=== PATIENT | male | born 1970 | race Hispanic/Latino ===

== ENCOUNTER 2016-12-28 20:16 | Emergency (ER) | payer OTHER ==
[2016-12-28 21:23] VITALS: BP 130/80; PULSE 84; RESP 14; TEMP 98; O2SAT 98
== END 2016-12-28 21:21 | disposition left against medical advice (07) ==
LOC: C.ER 20:16
DX: R10.31 Right lower quadrant pain (principal); Z02.9 Encounter for administrative examinations, unspecified

== ENCOUNTER 2016-12-29 16:45 | Emergency (ER) | payer OTHER ==
[2016-12-29 17:29] VITALS: BP 135/75; PULSE 84; RESP 20; TEMP 98.3; O2SAT 99
== END 2016-12-29 20:00 | disposition left against medical advice (07) ==
LOC: C.ER 16:45
DX: K40.90 Unilateral inguinal hernia, without obstruction or gangrene, not specified as recurrent (principal); Z02.9 Encounter for administrative examinations, unspecified

== ENCOUNTER 2017-07-23 13:22 | Emergency (ER) | payer OTHER | END 2017-07-23 13:52 | disposition left against medical advice (07) | LOC: C.ER 13:22 | DX: Z02.89 Encounter for other administrative examinations (principal); F19.10 Other psychoactive substance abuse, uncomplicated ==

== ENCOUNTER 2017-08-20 14:41 | Emergency (ER) | payer OTHER ==
[2017-08-20 16:18] LABS: RBC URINE 4295 /hpf (0-3); URINE BACTERIA OCC (<OCC); URINE BILIRUBIN NEGATIVE (NEGATIVE); URINE BLOOD 3+ (NEGATIVE); URINE COLOR Amber (YELLOW); URINE GLUCOSE (UA) NORMAL (Normal); URINE KETONE NEGATIVE (NEGATIVE); URINE LEUKOCYTE ESTERASE 2+ Leu/uL (Negative); URINE PROTEIN 2+ mg/dL (NEGATIVE); WBC URINE 124 /hpf (0-5)
[2017-08-20] MEDS ORDERED: Tmp-Smz 800 mg-160 mg DS Tab PO STA (16:22)
--- NOTE | 2017-08-20 16:28 | C.PDOC ---
History Of Present Illness 47 y/o male presents to emergency department with complaints of dysuria, hematuria, and bilateral flank pain. Patient reports he [place] [facility] [place] medications and abx, which he finished. Patient states he is still having pain; did not follow up with urology. Patient also reports he has been using heroin and requests detox. Denies fever, chills, nausea, vomiting, or other associated symptoms. Of note patient is accompanied by mother who states she is not sure if he took the antibiotic, he has been doing drugs and needs detox. Patient is visibly under the influence. Time Seen by Provider: 08/20/17 15:07 Chief Complaint (Nursing): Abdominal Pain History Per: Patient, Family (Mother) History/Exam Limitations: intoxication Onset/Duration Of Symptoms: Days Current Symptoms Are (Timing): Still Present Quality Of Discomfort: "Pain" Associated Symptoms: Urinary Symptoms. denies: Fever, Nausea, Vomiting, Diarrhea, Chest Pain Recent travel outside of the [place]: No Past Medical History Reviewed: Historical Data, Nursing Documentation, Vital Signs Vital Signs: Last Vital Signs Temp 98.0 F 08/20/17 16:54 Pulse 101 H 08/20/17 16:54 Resp 19 08/20/17 16:54 BP 127/70 08/20/17 16:54 Pulse Ox 97 08/20/17 17:12 - Medical History PMH: Asthma, Fractures (right arm), Hepatitis, Hiatal Hernia - [facility] Procedures COMBINED ALCOHOL AND DRUG DETOXIFICATION (09/04/14) Family History: States: Unknown Family Hx - Social History Hx Tobacco Use: Yes Hx Alcohol Use: Yes Hx Substance Use: Yes - Immunization History Hx Tetanus Toxoid Vaccination: No Hx Influenza Vaccination: No Hx Pneumococcal Vaccination: No Review Of Systems Except As Marked, All Systems Reviewed And Found Negative. Constitutional: Negative for: Fever, Chills Cardiovascular: Negative for: Chest Pain Respiratory: Negative for: Cough, Shortness of Breath Gastrointestinal: Positive for: Other (bilateral flank pain). Negative for: Nausea, Vomiting, Abdominal Pain Genitourinary: Positive for: Dysuria, Hematuria Skin: Negative for: Rash Neurological: Negative for: Headache, Dizziness Psych: Positive for: Other (substance abuse) Physical Exam - Physical Exam Appears: Non-toxic, No Acute Distress, Other (somnolent, euphoric, slow speech, mother at bedside) Skin: Warm, Dry, Other (track ayala to right antecubital fossa, no cellulitis) Head: Atraumatic, Normacephalic Eye(s): bilateral: Normal Inspection, EOMI, Other (pinpoint pupils) Nose: Normal Oral Mucosa: Moist Neck: Normal ROM Chest: Symmetrical Cardiovascular: Rhythm Regular, No Murmur Respiratory: No Rales, No Rhonchi, No Wheezing Gastrointestinal/Abdominal: Soft, No Tenderness, No Distention, No Guarding, No Rebound Back: Normal Inspection, No Paraspinal Tenderness Extremity: Normal ROM, Pedal Edema (trace), Capillary Refill (< 2 sec. ), Other (stasis dermatitis) Neurological/Psych: Dysarthria (from substance use), Other (Blunted, constricted mood and affect) Disoriented To: Time ED Course And Treatment O2 Sat by Pulse Oximetry: 97 (RA) Pulse Ox Interpretation: Normal Medical Decision Making Medical Decision Making: Plan: * UA, cultures [place] [facility] [place] [facility] [place] for Ureterolithiaisis. Instructed to follow up with Dr Wiliam Murcia and DR Marlon Joshua. And again on 08/03/17 for urinary pain and hematuria, diagnosed with UTI, discharged with Levaquin. Labs reviewed from both visits with no leukocytosis or other abnormality. UDS positive for opiates and cocaine. Progress Notes: UA shows nitrates. Will treat with Bactrim. UDS +opiate, cocaine and benzos. On reassessment, patient is resting comfortably, and is in no acute distress. Patient is still euphoric but alert and oriented, mother is at bedside and will accompany patient home. Spoke with [facility] there are no detox beds. Provide information for detox coordinator and contact info for prescreen. Patient instructed to follow up with clinic and urology and to continue taking medications as directed. Discharged home accompanied by mother who was at bedside. Disposition Counseled Patient/Family Regarding: Diagnosis, Need For Followup, Rx Given - Disposition Referrals: Wiliam Murcia MD [Medical Doctor] - Disposition: HOME/ ROUTINE Disposition Time: 16:55 Condition: STABLE Additional Instructions: Follow up with your primary medical doctor or clinic and urology in 2-5 days for further evaluation. Take medications as prescribed. Return to the emergency department at any time if symptoms persist or worsen. Prescriptions: Sulfamethoxazole/Trimethoprim [Bactrim DS 800 mg-160 mg] 1 tab PO BID #14 tab Instructions: Urinary Tract Infection in Men (DC) Forms: [employer] (Setswana) Print Language: YORUBA - POA Present On Arrival: None - Clinical Impression Clinical Impression: Polysubstance abuse, UTI (urinary tract infection), Hematuria - PA / BRANCH ASSOCIATE / Resident Statement MD/DO has reviewed & agrees with the documentation as recorded. - Scribe Statement The provider has reviewed the documentation as recorded by the Scribwalter Amaro All medical record entries made by the Cameron were at my direction and personally dictated by me. I have reviewed the chart and agree that the record accurately reflects my personal performance of the history, physical exam, medical decision making, and the department course for this patient. I have also personally directed, reviewed, and agree with the discharge instructions and disposition.
[2017-08-20] MEDS ORDERED: Tmp-Smz 800 mg-160 mg DS Tab ONE (16:49)
[2017-08-20 16:56] VITALS: BP 127/70; PULSE 101; RESP 19; TEMP 98
[2017-08-20 17:10] VITALS: O2SAT 97
== END 2017-08-20 16:57 | disposition home or self-care (01) ==
LOC: C.ER 14:41
DX: N39.0 Urinary tract infection, site not specified (principal); R31.9 Hematuria, unspecified; F19.10 Other psychoactive substance abuse, uncomplicated

== ENCOUNTER 2017-09-21 17:25 | Inpatient (IN) | payer OTHER ==
[2017-09-21 19:01] LABS: BASO % 1.3 % (0.0-2.0); EOS # 0.1 K/uL (0.0-0.7); EOS % 4.7 % (0.0-4.0); HEMATOCRIT 29.9 % (35.0-51.0); LYMPH # 0.8 K/uL (1.0-4.3); MEAN CORPUSCULAR HEMOGLOBIN 30.9 pg (27.0-31.0); MEAN CORPUSCULAR HGB CONC 33.1 g/dL (33.0-37.0); MEAN PLATELET VOLUME 10.2 fL (7.2-11.7); MONO # 0.3 K/uL (0.0-0.8); MONO % 9.9 % (0.0-10.0); RED CELL DISTRIBUTION WIDTH 17.1 % (11.5-14.5); WHITE BLOOD COUNT 3.2 K/uL (4.8-10.8)
[2017-09-21 19:04] LABS: MEAN CELL VOLUME 93.3 fL (80.0-94.0)
[2017-09-21 19:09] LABS: INR 1.8
[2017-09-21 19:14] LABS: ALKALINE PHOSPHATASE 109 U/L (38-126); ALT/SGPT 111 U/L (21-72); AST/SGOT 172 U/L (17-59); BILIRUBIN,TOTAL 2.2 mg/dL (0.2-1.3); BLOOD UREA NITROGEN 10 mg/dL (9-20); CALCIUM 7.3 mg/dl (8.6-10.4); CARBON DIOXIDE 29 mmol/L (22-30); CHLORIDE 108 mmol/L (98-107); GFR AFRICAN-AMERICAN > 60; GLUCOSE,RANDOM 114 mg/dL (75-110); POTASSIUM 3.7 mmol/L (3.6-5.2); SODIUM 139 mmol/L (132-148); TOTAL PROTEIN 6.5 g/dL (6.3-8.3)
[2017-09-21 19:16] LABS: ALB/GLOB RATIO 0.6 (1.0-2.1)
--- NOTE | 2017-09-21 19:28 | C.PDOC ---
History Of Present Illness Isaiah Jackson is a 47 year old male, heroin user, with a past medical history of kidney stones, who presents to the emergency department complaining of abdominal pain and flank pain onset x1 week. Patient is also complaining of retaining fluid. He has a stent in place by Dr. Winchester, and states he missed his appointment to have it removed. No further medical complaints. PMD: Dylan Deutsch Time Seen by Provider: 09/21/17 18:36 Chief Complaint (Nursing): Male Genitourinary Past Medical History Vital Signs: Last Vital Signs Temp 98.0 F 09/21/17 18:06 Pulse 108 H 09/21/17 18:06 Resp 20 09/21/17 18:06 BP 144/80 09/21/17 18:06 Pulse Ox 97 09/21/17 18:06 - Medical History PMH: Asthma, Fractures (right arm), Hepatitis, Hiatal Hernia Denies: Diabetes, HIV, HTN, Chronic Kidney Disease, Seizures, Sexually Transmitted Disease - [facility] Procedures COMBINED ALCOHOL AND DRUG DETOXIFICATION (09/04/14) Family History: States: Unknown Family Hx - Social History Hx Tobacco Use: Yes Hx Alcohol Use: Yes Hx Substance Use: Yes - Immunization History Hx Tetanus Toxoid Vaccination: No Hx Influenza Vaccination: No Hx Pneumococcal Vaccination: No ED Course And Treatment - Laboratory Results Result Diagrams: 09/21/17 18:58 09/21/17 18:58 O2 Sat by Pulse Oximetry: 97 Disposition - Disposition
--- NOTE | 2017-09-21 19:33 | C.PDOC ---
History Of Present Illness Isaiah Jackson is a 47 year old male, heroin user, with a past medical history of kidney stones, who presents to the emergency department complaining of diffused abdominal pain and flank pain onset x1 week. Patient is also complaining of retaining fluid. He has a stent in place by Dr. Winchester, and states he missed his appointment to have it removed. No further medical complaints. PMD: Dylan Deutsch Time Seen by Provider: 09/21/17 18:36 Chief Complaint (Nursing): Male Genitourinary History Per: Patient History/Exam Limitations: no limitations Onset/Duration Of Symptoms: Days (x1 week) Current Symptoms Are (Timing): Still Present Location Of Pain/Discomfort: Diffuse Radiation Of Pain To:: None Past Medical History Reviewed: Historical Data, Nursing Documentation, Vital Signs Vital Signs: Last Vital Signs Temp 98.0 F 09/21/17 18:06 Pulse 99 H 09/21/17 21:39 Resp 12 09/21/17 21:39 BP 108/76 09/21/17 21:39 Pulse Ox 97 09/21/17 22:29 - Medical History PMH: Asthma, Fractures (right arm), Hepatitis, Hiatal Hernia, Kidney Stones Denies: Diabetes, HIV, HTN, Chronic Kidney Disease, Seizures, Sexually Transmitted Disease Surgical History: Coronary Stent - [facility] Procedures COMBINED ALCOHOL AND DRUG DETOXIFICATION (09/04/14) Family History: States: Unknown Family Hx - Social History Hx Tobacco Use: Yes Hx Alcohol Use: Yes Hx Substance Use: Yes - Immunization History Hx Tetanus Toxoid Vaccination: No Hx Influenza Vaccination: No Hx Pneumococcal Vaccination: No Review Of Systems Except As Marked, All Systems Reviewed And Found Negative. Cardiovascular: Positive for: Edema Gastrointestinal: Positive for: Abdominal Pain, Other (flank pain) Physical Exam - Physical Exam Appears: No Acute Distress Skin: Normal Color, Warm, Dry Head: Atraumatic, Normacephalic Eye(s): bilateral: Normal Inspection, PERRL, EOMI Neck: Normal, Normal ROM, Supple Cardiovascular: Rhythm Regular Respiratory: Normal Breath Sounds, No Accessory Muscle Use Gastrointestinal/Abdominal: Other (hepatomegaly) Back: CVA Tenderness (left ) Extremity: Normal ROM, Pedal Edema (3+ bilateral) Neurological/Psych: Oriented x3, Normal Speech ED Course And Treatment - Laboratory Results Result Diagrams: 09/21/17 18:58 09/21/17 18:58 ECG: Interpreted By Me, Viewed By Me ECG Rhythm: Sinus Rhythm ECG Interpretation: Normal Interpretation Of ECG: normal intervals, normal axis, no ST/T wave abnormalities. Rate From EC O2 Sat by Pulse Oximetry: 97 (RA) Pulse Ox Interpretation: Normal - CT Scan/US CT abd/pel Other Rad Studies (CT/US): Read By Radiologist, Radiology Report Reviewed CT/US Interpretation: IMPRESSION: Splenomegaly with possible varices; mesenteric adenopathy; limited evaluation of. solid viscera and bowel; left ureteral stent with 13 x 6 mm proximal left ureteral stone adjacent to the. stent; mild left caliectasis with nonobstructing left lower pole renal stone Medical Decision Making Medical Decision Making: Initial impression: abdominal pain Initial Plan: --Abd & Pelvis w/o PO contrast [CT] --EKG --Chest one view [RAD] --Pepcid 20 mg IVP --Toradol 30 mg IVP --Urinalysis --reevaluation Disposition Discussed With : Radha Saenz Doctor Will See Patient In The: Hospital Counseled Patient/Family Regarding: Studies Performed, Diagnosis - Disposition Disposition Time: 22:28 Condition: FAIR - Clinical Impression Clinical Impression: Renal stone, UTI (urinary tract infection), Ureteral stent retained - Scribe Statement Josh Garcia Provider Attestation: All medical record entries made by the Scribe were at my direction and personally dictated by me. I have reviewed the chart and agree that the record accurately reflects my personal performance of the history, physical exam, medical decision making, and the department course for this patient. I have also personally directed, reviewed, and agree with the discharge instructions and disposition.
[2017-09-21 20:00] LABS: RBC URINE 4589 /hpf (0-3); URINE BILIRUBIN NEGATIVE (NEGATIVE); URINE BLOOD 3+ (NEGATIVE); URINE CALCIUM OXALATE CRYSTALS OCC /hpf (<OCC); URINE COLOR Amber (YELLOW); URINE GLUCOSE (UA) NORMAL (Normal); URINE KETONE NEGATIVE (NEGATIVE); URINE LEUKOCYTE ESTERASE 2+ Leu/uL (Negative); URINE PROTEIN 2+ mg/dL (NEGATIVE); WBC CLUMPS MANY /hpf; WBC URINE 515 /hpf (0-5)
[2017-09-21] MEDS ORDERED: cefTRIAXone IV 1 gm in Dextros 50 ML IVPB ONE (21:06)
--- NOTE | 2017-09-21 22:02 | CT ---
EXAM: CT Abdomen and Pelvis Without Intravenous Contrast EXAM DATE/TIME: 09/21/2017 6:52 PM CLINICAL HISTORY: 47 years old, male; Pain; Abdominal pain; Flank; Other: Bilateral flank pain; Prior surgery; Surgery date: 1-6 months; Surgery type: Ureteral stents TECHNIQUE: Axial computed tomography images of the abdomen and pelvis without intravenous contrast. All CT scans at this facility use one or more dose reduction techniques, viz.: automated exposure control; ma/kV adjustment per patient size (including targeted exams where dose is matched to indication; i.e. head); or iterative reconstruction technique. Coronal and sagittal reformatted images were created and reviewed. COMPARISON: There are no prior studies for comparison. FINDINGS: Lower thorax: Heart size is normal. There is fluid in the pericardial space on the right. There is minimal scarring at the lung bases. ABDOMEN: Liver: Liver is diffusely heterogeneous. There is prominence of unopacified venous structures. Low attenuation masses cannot be excluded. Gallbladder and bile ducts: Gallbladder is almost empty.Common duct is unremarkable. Pancreas: Pancreas is not optimally evaluated. Spleen: The spleen is enlarged, 15 x 11 x 20 cm. Adrenals: Adrenals are unremarkable. Kidneys and ureters: Right kidney and ureter are unremarkable. There is mild left caliectasis. There are left lower pole renal stones. There is a 13 x 6 oh mm proximal right ureteral stone adjacent to the stent. There is a left ureteral stent. Proximal loop is in the renal pelvis. Distal loop is in the bladder. Stomach and bowel: Stomach is partially distended. Rotation is normal. Small bowel is mildly distended with fluid and air. There is mild proximal small bowel wall thickening There is no obstruction. Ileocecal region is unremarkable. Appendix and terminal ileum are unremarkable. Colon is incompletely distended which limits evaluation. There is scattered diverticulosis Appendix: See stomach and bowel PELVIS: Bladder: unremarkable Reproductive: Seminal vesicles and prostate are unremarkable. ABDOMEN and PELVIS: Intraperitoneal space: There are multiple nodular opacities in the upper abdomen. There is no free air. Bones/joints: There are no acute osseous abnormalities. Soft tissues: There is a right inguinal hernia containing fluid. There is a small fat containing umbilical hernia. There is body wall edema. Vasculature: There are vascular calcifications. Lymph nodes: There are shoddy inguinal nodes bilaterally. There is mesenteric adenopathy IMPRESSION: Splenomegaly with possible varices; mesenteric adenopathy; limited evaluation of solid viscera and bowel; left ureteral stent with 13 x 6 mm proximal left ureteral stone adjacent to the stent; mild left caliectasis with nonobstructing left lower pole renal stone Additional findings as described above.
[2017-09-21] MEDS ORDERED: Sodium Chloride 0.9% 1,000 ML ONE (22:43)
[2017-09-21] MEDS: Sodium Chloride 0.45% 1,000 ML IV SCH (22:53)
--- NOTE | 2017-09-21 23:04 | CP.PCM.HP ---
History of Present Illness - History of Present Illness History of Present Illness: 47 year old male, heroin user, with a past medical history of kidney stones, who presents to the emergency department complaining of diffused abdominal pain and flank pain onset x1 week. Patient is also complaining of retaining fluid. He has a stent in place by Dr. Winchester, and states he missed his appointment to have it removed. No further medical complaints. Present on Admission - Present on Admission Any Indicators Present on Admission: No Past Patient History - Infectious Disease Hx of Infectious Diseases: None - Past Medical History & Family History Past Medical History?: Yes - Past Social History Smoking Status: Light Smoker < 10 Cigarettes Daily - CARDIAC Hx Hypertension: No - PULMONARY Hx Asthma: Yes - NEUROLOGICAL Hx Seizures: No - HEENT Hx HEENT Problems: No - RENAL Hx Chronic Kidney Disease: No Hx Kidney Stones: Yes - ENDOCRINE/METABOLIC Hx Endocrine Disorders: No - HEMATOLOGICAL/ONCOLOGICAL Hx Human Immunodeficiency Virus (HIV): No - INTEGUMENTARY Hx Dermatological Problems: No - MUSCULOSKELETAL/RHEUMATOLOGICAL Hx Fractures: Yes (right arm) - GASTROINTESTINAL Other/Comment: right groin hernia - GENITOURINARY/GYNECOLOGICAL Hx Sexually Transmitted Disorders: No - PSYCHIATRIC Hx Substance Use: Yes - SURGICAL HISTORY Hx Coronary Stent: Yes - ANESTHESIA Hx Anesthesia: No Meds Allergies/Adverse Reactions: Allergies Allergy/AdvReac Type Severity Reaction Status Date / Time No Known Allergies Allergy Verified 09/21/17 18:10 Results - Vital Signs Recent Vital Signs: Last Vital Signs Temp 98.0 F 09/21/17 18:06 Pulse 99 H 09/21/17 21:39 Resp 12 09/21/17 21:39 BP 108/76 09/21/17 21:39 Pulse Ox 97 09/21/17 22:38 - Labs Result Diagrams: 09/21/17 18:58 09/21/17 18:58 Labs: Laboratory Results - last 24 hr 09/21/17 09/21/17 09/21/17 18:58 18:58 18:58 WBC 3.2 L RBC 3.20 L Hgb 9.9 L D Hct 29.9 L MCV 93.3 D MCH 30.9 MCHC 33.1 RDW 17.1 H Plt Count 38 L MPV 10.2 Neut % (Auto) 60.1 Lymph % (Auto) 24.0 [place] % (Auto) 9.9 Eos % (Auto) 4.7 H Baso % (Auto) 1.3 Neut # 1.9 Lymph # 0.8 L [place] # 0.3 Eos # 0.1 Baso # 0.0 Differential Comment PT 20.2 H INR 1.8 APTT 44 H Sodium 139 Potassium 3.7 Chloride 108 H Carbon Dioxide 29 Anion Gap 7 L BUN 10 Creatinine 0.5 L Est GFR ( Amer) > 60 Est GFR (Non-Af Amer) > 60 Random Glucose 114 H Calcium 7.3 L Total Bilirubin 2.2 H AST 172 H ALT 111 H D Alkaline Phosphatase 109 Troponin I < 0.0120 NT-Pro-B Natriuret Pep 74.8 Total Protein 6.5 Albumin 2.4 L D Globulin 4.1 H Albumin/Globulin Ratio 0.6 L Lipase 144 Urine Color Urine Clarity Urine pH Ur Specific [place] Urine Protein Urine Glucose (UA) Urine Ketones Urine Blood Urine Nitrate Urine Bilirubin Urine Urobilinogen Ur Leukocyte Esterase Urine WBC (Auto) Urine RBC (Auto) Urine WBC Clumps (Auto) Calcium Oxalate Crystal 09/21/17 19:37 WBC RBC Hgb Hct MCV MCH MCHC RDW Plt Count MPV Neut % (Auto) Lymph % (Auto) [place] % (Auto) Eos % (Auto) Baso % (Auto) Neut # Lymph # [place] # Eos # Baso # Differential Comment PT INR APTT Sodium Potassium Chloride Carbon Dioxide Anion Gap BUN Creatinine Est GFR ( Amer) Est GFR (Non-Af Amer) Random Glucose Calcium Total Bilirubin AST ALT Alkaline Phosphatase Troponin I NT-Pro-B Natriuret Pep Total Protein Albumin Globulin Albumin/Globulin Ratio Lipase Urine Color [place]ryn Urine Clarity Hazy Urine pH 6.0 Ur Specific [place] 1.017 Urine Protein 2+ H Urine Glucose (UA) Normal Urine Ketones Negative Urine Blood 3+ H Urine Nitrate Negative Urine Bilirubin Negative Urine Urobilinogen 2.0 Ur Leukocyte Esterase 2+ H Urine WBC (Auto) 515 H Urine RBC (Auto) 4589 H Urine WBC Clumps (Auto) Many H Calcium Oxalate Crystal Occ H Assessment & Plan (1) Renal stone Status: Acute Comment: URO EVAL FOR STENT REMOVALE (2) UTI (urinary tract infection) Status: Acute Comment: IV AB (3) Ureteral stent retained Status: Acute (4) Abdominal pain Status: Acute
--- NOTE | 2017-09-22 07:01 | RAD ---
PROCEDURE: CHEST RADIOGRAPH, 1 VIEW HISTORY: chest pain COMPARISON: 08/21/2016 FINDINGS: LUNGS: Biapical pleural thickening with upper lobe granulomatous changes. Diffuse increased interstitial lung markings. Left hilar prominence. Nodular density projecting over the right lung apex may represent productive change at the end of the 1st rib. PLEURA: No pneumothorax or pleural fluid seen. CARDIOVASCULAR: Normal. OSSEOUS STRUCTURES: No significant abnormalities. VISUALIZED UPPER ABDOMEN: Normal. OTHER FINDINGS: None. IMPRESSION: Biapical pleural thickening with upper lobe granulomatous changes. Diffuse increased interstitial lung markings. Left hilar prominence. Nodular density projecting over the right lung apex may represent productive change at the end of the 1st rib.
[2017-09-22 07:32] LABS: BASO % 0.4 % (0.0-2.0); EOS # 0.1 K/uL (0.0-0.7); LYMPH # 0.6 K/uL (1.0-4.3); LYMPH % 30.5 % (20.0-40.0); MEAN CELL VOLUME 92.3 fL (80.0-94.0); MEAN CORPUSCULAR HGB CONC 34.7 g/dL (33.0-37.0); MEAN PLATELET VOLUME 11.4 fL (7.2-11.7); MONO # 0.3 K/uL (0.0-0.8); MONO % 13.7 % (0.0-10.0); NRBC % 0.4 % (0.0-2.0); RED CELL DISTRIBUTION WIDTH 17.2 % (11.5-14.5); WHITE BLOOD COUNT 2.1 K/uL (4.8-10.8)
[2017-09-22 08:03] LABS: ALB/GLOB RATIO 0.6 (1.0-2.1); ALKALINE PHOSPHATASE 94 U/L (38-126); ALT/SGPT 93 U/L (21-72); AST/SGOT 139 U/L (17-59); BILIRUBIN,TOTAL 1.7 mg/dL (0.2-1.3); BLOOD UREA NITROGEN 11 mg/dL (9-20); CALCIUM 7.4 mg/dl (8.6-10.4); CARBON DIOXIDE 29 mmol/L (22-30); CHLORIDE 110 mmol/L (98-107); GFR AFRICAN-AMERICAN > 60; GLUCOSE,RANDOM 105 mg/dL (75-110); POTASSIUM 3.4 mmol/L (3.6-5.2); SODIUM 141 mmol/L (132-148); TOTAL PROTEIN 5.2 g/dL (6.3-8.3)
[2017-09-22] MEDS: Sodium Chloride 0.45% 1,000 ML IV SCH (09:35)
--- NOTE | 2017-09-22 10:14 | PCM.PSYCH ---
Initial Psychiatric Evaluation - Initial Psychiatric Evaluation Type of Admission: Voluntary Legal Status: Capacity Chief Complaint (in patient's own words): "I'm feeling tired" History of Present Illness and Precipitating Events: Pt was seen, chart reviewed, case discussed with staff Pt is a 47 y/o male pt who lives with his and 2 daughters. 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 Pt is a poor historian and is not attentive or cooperative during the interview. He presented to the ED with the chief complaint of diffuse abdominal pain. Pt has a history of opiate use. Pt reports that he uses 5 bags of heroin a day and his last use was yesterday. Pt had a 10 month period of sobriety before relapsing 6 years ago. Pt reports that he uses 2 -3 64 ounce cans of beer a day for an unspecified amount of time. Pt reports smoking $20 worth of crack cocaine for an unspecified amount of time. Pt smokes 1-3 cigarettes a day. Pt is experiencing withdrawal symptoms and appears extremely lethargic. He is superficially cooperative during the interview. However he denies any AVH or any psychotic symptoms. He also denies any SI/HI. PMHX: Asthma, Hepatits, Hiatal Hernia, Kidney Stones, Coronary Stent Current Medications: Active Medications Generic Name Dose Route Start Last Admin Trade Name Violetta PRN Reason Stop Dose Admin Ciprofloxacin 400 mg in 200 mls @ 133 mls/hr 09/22/17 00:00 09/22/17 00:00 Cipro 400mg/200ml Dsw IVPB 133 mls/hr Q12H ROBYN Administration Multivitamins/Vitamin C 10 ml/ 1,011.2 mls @ 100 mls/hr 09/22/17 11:00 Thiamine HCl 100 mg/ Folic IV 09/22/17 21:06 Acid 1 mg/ Sodium Chloride .[id number] ONE Pneumococcal Polyvalent Vaccine 0.5 ml 09/24/17 10:00 Pneumovax 23 Vaccine IM 09/24/17 10:01 .ONCE ONE Tamsulosin HCl 0.4 mg 09/22/17 10:00 Flomax PO DAILY ROBYN Past Psychiatric History - Past Psychiatric History Previous Treatment History: None Pertinent Medical Hx (Current Medical&Sleep Prob, Allergies): Allergies Allergy/AdvReac Type Severity Reaction Status Date / Time No Known Allergies Allergy Verified 09/21/17 18:10 Cephalexin [cephalexin] 500 mg PO TID 09/21/17 Tamsulosin [Flomax] 0.4 mg PO DAILY 09/21/17 Review of Systems - Review of Systems All systems: reviewed and no additional remarkable complaints except - Psychiatric Psychiatric: Abnormal Sleep Pattern, Anxiety, Difficulty Concentrating Mental Status Examination - Personal Presentation Personal Presentation: Looks stated age - Affect Affect: Constricted - Motor Activity Motor Activity: Psychomotor Agitation - Reliability in Providing Information Reliability in Providing Information: Fair - Speech Speech: Organized - Mood Mood: Anxious - Formal Thought Process Formal Thought Process: No Impairment - Obsessions/Compulsions Obsessions: No Compulsions: No - Cognitive Functions Orientation: Person, Place, Situation, Time Sensorium: Alert, Lethargic Attention/Concentration: Attentive Abstract Thinking: [place] Estimate of Intelligence: Below average Judgement: Imparied, as evidence by: Poor judgement, Imparied, as evidence by: Lack of insight into illness - Risk Risk: Seizure, Withdrawal, Diminished functioning DSM 5 DX - DSM 5 DSM 5 Diagnosis: Opioid use disorder severe Opioid withdrawal Cocaine use severe - Recommended/Plan of Treatment Treatment Recommendations and Plan of Treatment: CBT Psychoeducation Supportive therapy, individual therapy Clonidine when necessary Methadone taper trazodoen - Smoking Cessation Smoking Cessation Initiated: No
[2017-09-22] MEDS ORDERED: Multivitamin (MVI) 10 ML, Thiamine 100 MG, Folic Acid 1 MG in Sodium Chloride 0.9% 1,00... IV ONE (11:00)
[2017-09-22] MEDS ORDERED: Folic Acid 1 MG, Thiamine 100 MG, Multivitamin (MVI) 10 ML in Dextrose 5% In Water 1,00... IV SCH (11:00)
[2017-09-22] MEDS: Ciprofloxacin 400mg/200ml D5W 400 MG/200 ML BAG IVPB SCH ×2 (12:58)
--- NOTE | 2017-09-22 13:39 | CP.PCM.PN ---
Subjective - Date & Time of Evaluation Date of Evaluation: 09/22/17 Time of Evaluation: 13:38 - Subjective Subjective: CHIEF COMPLAINTS TODAY : LOWER BACK PAIN DYSURIA ROS. HEENT : N. Resp : No cough, wheezing ,pleuritic CP ,or hemoptysis Cardio : No anginal CP, PND, orthopnea, palpitation GI : No abd.pain, n/v ,diarrhea or GI bleeding . ENTREPRENEURSHIP PROGRAM DIRECTOR : No headache, vertigo, focal deficit. Musculoskel : No joint swelling , Derm : No rash Psych : Normal affect. Ext : No swelling ,calf pain PE. Pt. is alert awake in no distress. V.S As noted in the chart Head ,ear nose,throat and eyes : Normal. Neck : Supple with normal carotids. Lungs: Clear air entry. Heart : S1 & S2 normal with S4. No murmur. Abd : Soft with normal bowel sounds. Neuro : Moves all ext. with no localized deficit. Ext : No edema with intact pulses.Non tender calves Derm : No rashes or decubitus ulcer. LABS/RADIOLOGY ASSESSMENT/PLAN : IV AB AWAITING EVAL Objective - Vital Signs/Intake and Output Vital Signs (last 24 hours): Temp Pulse Resp BP Pulse Ox 98.7 F 95 H 20 127/78 97 09/22/17 07:00 09/22/17 07:00 09/22/17 07:00 09/22/17 07:00 09/22/17 07:00 Intake and Output: 09/22/17 09/22/17 11:59 23:59 Intake Total 1160 Balance 1160 - Medications Medications: Current Medications Ciprofloxacin (Cipro 400mg/200ml Dsw) 400 mg in 200 mls @ 133 mls/hr IVPB Q12H [facility] Last Admin: 09/22/17 12:58 Dose: 133 mls/hr Multivitamins/Vitamin C 10 ml/Thiamine HCl 100 mg/ Folic Acid 1 mg/ Sodium Chloride 1,011.2 mls @ 100 mls/hr IV .Q10H7M ONE Stop: 09/22/17 21:06 Last Admin: 09/22/17 12:56 Dose: 100 mls/hr Pneumococcal Polyvalent Vaccine (Pneumovax 23 Vaccine) 0.5 ml IM .ONCE ONE Stop: 09/24/17 10:01 Tamsulosin HCl (Flomax) 0.4 mg PO DAILY [facility] Last Admin: 09/22/17 10:23 Dose: 0.4 mg - Labs Labs: 09/22/17 07:10 09/22/17 07:10 PT 20.2 SECONDS (9.7-12.2) H 09/21/17 18:58 INR 1.8 09/21/17 18:58 APTT 44 SECONDS (21-34) H 09/21/17 18:58 Assessment and Plan (1) Renal stone Status: Acute (2) UTI (urinary tract infection) Status: Acute (3) Ureteral stent retained Status: Acute (4) Abdominal pain Status: Acute
[2017-09-22] MEDS: Sodium Chloride 0.9% 1,000 ML IV SCH (23:06)
[2017-09-23] MEDS: Ciprofloxacin 400mg/200ml D5W 400 MG/200 ML BAG IVPB SCH ×2 (00:05→13:00)
[2017-09-23 07:47] LABS: BASO % 1.3 % (0.0-2.0); EOS # 0.1 K/uL (0.0-0.7); EOS % 5.8 % (0.0-4.0); HEMATOCRIT 30.7 % (35.0-51.0); LYMPH # 0.6 K/uL (1.0-4.3); LYMPH % 24.8 % (20.0-40.0); MEAN CELL VOLUME 93.3 fL (80.0-94.0); MEAN CORPUSCULAR HEMOGLOBIN 30.7 pg (27.0-31.0); MEAN CORPUSCULAR HGB CONC 32.9 g/dL (33.0-37.0); MEAN PLATELET VOLUME 11.5 fL (7.2-11.7); MONO # 0.2 K/uL (0.0-0.8); MONO % 9.7 % (0.0-10.0); NRBC % 0.3 % (0.0-2.0); RED CELL DISTRIBUTION WIDTH 17.8 % (11.5-14.5); WHITE BLOOD COUNT 2.4 K/uL (4.8-10.8)
[2017-09-23 07:59] LABS: BLOOD UREA NITROGEN 7 mg/dL (9-20); CALCIUM 7.4 mg/dl (8.6-10.4); CARBON DIOXIDE 25 mmol/L (22-30); CHLORIDE 114 mmol/L (98-107); GFR AFRICAN-AMERICAN > 60; GLUCOSE,RANDOM 94 mg/dL (75-110); POTASSIUM 3.9 mmol/L (3.6-5.2); SODIUM 142 mmol/L (132-148)
[2017-09-23] MEDS: Sodium Chloride 0.9% 1,000 ML IV SCH (08:04)
[2017-09-23] MEDS: Dextrose 5%/0.45% NS 1,000 ML IV SCH ×2 (08:47→18:15)
[2017-09-23] MEDS ORDERED: Multivitamin (MVI) 10 ML, Thiamine 100 MG, Folic Acid 1 MG in Sodium Chloride 0.9% 1,00... IV ONE (09:00)
[2017-09-23] MEDS: Aluminum Hydroxide/Magnesium Hydroxide Susp (30 mL) PO PRN (09:00)
--- NOTE | 2017-09-23 10:13 | PCM.URO ---
Urology Progress Note - Subjective Abdominal Pain: Yes - Objective Lab Studies: Reviewed (gu dx: substance abuse and urolithiasis gu recommendation / anesthesia requests: hematology to address platelets, and psych plans to address his chronic substance abuse. long term plans . if cleared medically and psychiatrically, gu plans for surgery 09/27 1 pm) Lab Results Last 24 Hours: Laboratory Results - last 24 hr 09/22/17 09/23/17 09/23/17 19:28 07:13 07:13 WBC 2.4 L RBC 3.29 L Hgb 10.1 L Hct 30.7 L MCV 93.3 MCH 30.7 MCHC 32.9 L RDW 17.8 H Plt Count 38 L MPV 11.5 Neut % (Auto) 58.4 Lymph % (Auto) 24.8 Norton % (Auto) 9.7 Eos % (Auto) 5.8 H Baso % (Auto) 1.3 Neut # 1.4 L Lymph # 0.6 L Norton # 0.2 Eos # 0.1 Baso # 0.0 Sodium 142 Potassium 3.9 Chloride 114 H Carbon Dioxide 25 Anion Gap 7 L BUN 7 L Creatinine 0.6 L Est GFR ( Amer) > 60 Est GFR (Non-Af Amer) > 60 Random Glucose 94 Calcium 7.4 L Urine Opiates Screen Positive H Urine Methadone Screen Negative Ur Barbiturates Screen Negative Ur Phencyclidine Scrn Negative Ur Amphetamines Screen Negative U Benzodiazepines Scrn Negative U Oth Cocaine Metabols Positive H U Cannabinoids Screen Negative Intake & Output: Intake & Output 09/22/17 09/23/17 09/23/17 18:59 06:59 18:59 Intake Total 1940 Output Total 1250 Balance 690 Intake: Intake, IV Amount 1440 Left Antecubital 1440 Oral 500 Output: Urine 1250 Urine, Voided 1250 Other: # Voids Urine, Voided 6 Vital Signs: Vital Signs - 24 hr 09/22/17 09/22/17 09/23/17 13:30 15:00 00:00 Temperature 97.4 F L 99.3 F Pulse Rate 95 H 81 109 H Respiratory 22 20 Rate Blood Pressure 127/78 120/80 115/72 O2 Sat by Pulse 97 96 99 Oximetry 09/23/17 07:56 Temperature 98.3 F Pulse Rate 98 H Respiratory 20 Rate Blood Pressure 136/83 O2 Sat by Pulse 98 Oximetry
--- NOTE | 2017-09-23 13:19 | CARD ---
APPROVED REPORT EKG Measurement Heart [id number] <Conclusion> Normal sinus rhythm Possible Left atrial enlargement Borderline ECG
--- NOTE | 2017-09-23 13:52 | CP.PCM.PN ---
Subjective - Date & Time of Evaluation Date of Evaluation: 09/23/17 Time of Evaluation: 13:51 - Subjective Subjective: CHIEF COMPLAINTS TODAY : LOWER BACK PAIN DYSURIA ROS. HEENT : N. Resp : No cough, wheezing ,pleuritic CP ,or hemoptysis Cardio : No anginal CP, PND, orthopnea, palpitation GI : No abd.pain, n/v ,diarrhea or GI bleeding . APPRAISAL TECHNICIAN : No headache, vertigo, focal deficit. Musculoskel : No joint swelling , Derm : No rash Psych : Normal affect. Ext : No swelling ,calf pain PE. Pt. is alert awake in no distress. V.S As noted in the chart Head ,ear nose,throat and eyes : Normal. Neck : Supple with normal carotids. Lungs: Clear air entry. Heart : S1 & S2 normal with S4. No murmur. Abd : Soft with normal bowel sounds. Neuro : Moves all ext. with no localized deficit. Ext : No edema with intact pulses.Non tender calves Derm : No rashes or decubitus ulcer. LABS/RADIOLOGY PANCYTOPENIA ASSESSMENT/PLAN : IV AB PLANNING SURGERY HEM EVAL Objective - Vital Signs/Intake and Output Vital Signs (last 24 hours): Temp Pulse Resp BP Pulse Ox 98.3 F 98 H 20 136/83 98 09/23/17 07:56 09/23/17 07:56 09/23/17 07:56 09/23/17 07:56 09/23/17 07:56 Intake and Output: 09/23/17 09/23/17 11:59 23:59 Intake Total 800 1400 Output Total 1250 1500 Balance -450 -100 - Medications Medications: Current Medications Al Hydrox/Mg Hydrox/Simethicone (Maalox 30 Ml) 30 ml PO TID PRN PRN Reason: Indigestion / Heartburn Last Admin: 09/23/17 09:00 Dose: 30 ml Clonidine HCl (Catapres) 0.1 mg PO Q8 PRN PRN Reason: COWS Score More or Equal to 5 Folic Acid (Folic Acid) 1 mg PO DAILY [facility] Last Admin: 09/23/17 09:06 Dose: 1 mg Gabapentin (Neurontin) 100 mg PO TID [facility] Last Admin: 09/23/17 10:22 Dose: 100 mg Ciprofloxacin (Cipro 400mg/200ml Dsw) 400 mg in 200 mls @ 133 mls/hr IVPB Q12H [facility] Last Admin: 09/23/17 13:00 Dose: 133 mls/hr Multivitamins/Vitamin C 10 ml/Thiamine HCl 100 mg/ Folic Acid 1 mg/ Sodium Chloride 1,011.2 mls @ 100 mls/hr IV .Q10H7M ONE Stop: 09/23/17 19:06 Last Admin: 09/23/17 13:19 Dose: 100 mls/hr Dextrose/Sodium Chloride (Dextrose 5%/0.45% Ns 1000 Ml) 1,000 mls @ 100 mls/hr IV .Q10H [facility] Last Admin: 09/23/17 08:47 Dose: 100 mls/hr Loperamide HCl (Imodium) 2 mg PO Q8 PRN PRN Reason: Diarrhea Methadone HCl (Methadone) 20 mg PO DAILY [facility] PRN Reason: Taper Stop: 09/27/17 09:59 Last Admin: 09/23/17 10:12 Dose: 20 mg Ondansetron HCl (Zofran Tab) 4 mg PO Q8 PRN PRN Reason: Nausea/Vomiting Pneumococcal Polyvalent Vaccine (Pneumovax 23 Vaccine) 0.5 ml IM .ONCE ONE Stop: 09/24/17 10:01 Tamsulosin HCl (Flomax) 0.4 mg PO DAILY [facility] Last Admin: 09/23/17 09:00 Dose: 0.4 mg Thiamine HCl (Vitamin B1 Tab) 100 mg PO DAILY [facility] Last Admin: 09/23/17 09:06 Dose: 100 mg - Labs Labs: 09/23/17 07:13 09/23/17 07:13 PT 20.2 SECONDS (9.7-12.2) H 09/21/17 18:58 INR 1.8 09/21/17 18:58 APTT 44 SECONDS (21-34) H 09/21/17 18:58 Assessment and Plan (1) Renal stone Status: Acute (2) UTI (urinary tract infection) Status: Acute (3) Ureteral stent retained Status: Acute (4) Abdominal pain Status: Acute
--- NOTE | 2017-09-23 19:55 | CP.PCM.CON ---
History of Present Illness - History of Present Illness History of Present Illness: 47 year old male with a history of polysubstance abuse, kidney stones, ?liver cirrhosis, admitted with abdominal/flank pain, for urologic surgery, found to be pancytopenic and coagulopathic. The patient notes to a ureteral stent being placed for kidney stones in the past. He was supposed to have this removed at some point but did not follow up. He notes to flank pain and abdominal discomfort. He feels a lot of his symptoms may be related to heroine withdrawal. The patient was told in the past he had low blood, as well as liver disease and liver infection. He has not had blood transfusions in the past. Past medical history: polysubstance abuse, kidney stones, ?liver disease Past surgical history: Denies Family history: Denies hematologic and oncologic problems Social history: Smokes 2-3 cigarettes daily, drinks 3-4 beers daily, uses heroine Allergies: NKA Review of systems: All remaining review of systems including HEENT, cardiovascular, respiratory, gastrointestinal, genitourinary, musculoskeletal, dermatologic, neurologic, and psychiatric are negative unless mentioned in the HPI. Past Patient History - Infectious Disease Hx of Infectious Diseases: None - Past Medical History & Family History Past Medical History?: Yes - Past Social History Smoking Status: Light Smoker < 10 Cigarettes Daily - CARDIAC Hx Hypertension: No - PULMONARY Hx Asthma: Yes - NEUROLOGICAL Hx Seizures: No - HEENT Hx HEENT Problems: No - RENAL Hx Chronic Kidney Disease: No Hx Kidney Stones: Yes - ENDOCRINE/METABOLIC Hx Endocrine Disorders: No - HEMATOLOGICAL/ONCOLOGICAL Hx Hepatitis C: Yes Hx Human Immunodeficiency Virus (HIV): No - INTEGUMENTARY Hx Dermatological Problems: No - MUSCULOSKELETAL/RHEUMATOLOGICAL Hx Arthritis: Yes (back) - GASTROINTESTINAL Other/Comment: right groin hernia - GENITOURINARY/GYNECOLOGICAL Hx Sexually Transmitted Disorders: No - PSYCHIATRIC Hx Substance Use: Yes (Heroin/ Cocaine) - SURGICAL HISTORY Hx Surgeries: Yes Hx Coronary Stent: No Other/Comment: left urethral stent - ANESTHESIA Hx Anesthesia: Yes Hx Anesthesia Reactions: No Hx Malignant Hyperthermia: No Has any member of the family had a problem w/ anesthesia?: No Meds Allergies/Adverse Reactions: Allergies Allergy/AdvReac Type Severity Reaction Status Date / Time No Known Allergies Allergy Verified 09/21/17 18:10 - Medications Medications: Current Medications Al Hydrox/Mg Hydrox/Simethicone (Maalox 30 Ml) 30 ml PO TID PRN PRN Reason: Indigestion / Heartburn Last Admin: 09/23/17 09:00 Dose: 30 ml Clonidine HCl (Catapres) 0.1 mg PO Q8 PRN PRN Reason: COWS Score More or Equal to 5 Folic Acid (Folic Acid) 1 mg PO DAILY [facility] Last Admin: 09/23/17 09:06 Dose: 1 mg Gabapentin (Neurontin) 100 mg PO TID [facility] Last Admin: 09/23/17 10:22 Dose: 100 mg Ciprofloxacin (Cipro 400mg/200ml Dsw) 400 mg in 200 mls @ 133 mls/hr IVPB Q12H [facility] Last Admin: 09/23/17 13:00 Dose: 133 mls/hr Dextrose/Sodium Chloride (Dextrose 5%/0.45% Ns 1000 Ml) 1,000 mls @ 100 mls/hr IV .Q10H [facility] Last Admin: 09/23/17 08:47 Dose: 100 mls/hr Loperamide HCl (Imodium) 2 mg PO Q8 PRN PRN Reason: Diarrhea Lorazepam (Ativan) 0.5 mg IVP Q6H PRN PRN Reason: Anxiety Last Admin: 09/23/17 15:38 Dose: 0.5 mg Methadone HCl (Methadone) 20 mg PO DAILY [facility] PRN Reason: Taper Stop: 09/27/17 09:59 Last Admin: 09/23/17 10:12 Dose: 20 mg Ondansetron HCl (Zofran Tab) 4 mg PO Q8 PRN PRN Reason: Nausea/Vomiting Pneumococcal Polyvalent Vaccine (Pneumovax 23 Vaccine) 0.5 ml IM .ONCE ONE Stop: 09/24/17 10:01 Tamsulosin HCl (Flomax) 0.4 mg PO DAILY [facility] Last Admin: 09/23/17 09:00 Dose: 0.4 mg Thiamine HCl (Vitamin B1 Tab) 100 mg PO DAILY [facility] Last Admin: 09/23/17 09:06 Dose: 100 mg Physical Exam - Head Exam Head Exam: ATRAUMATIC - Eye Exam Eye Exam: Normal appearance - ENT Exam ENT Exam: Mucous Membranes Dry - Respiratory Exam Respiratory Exam: NORMAL BREATHING PATTERN - Cardiovascular Exam Cardiovascular Exam: +S1, +S2 - GI/Abdominal Exam GI & Abdominal Exam: Normal Bowel Sounds - Extremities Exam Extremities exam: Positive for: normal inspection - Neurological Exam Neurological exam: Oriented x3 - Psychiatric Exam Psychiatric exam: Agitated - Skin Skin Exam: Warm Results - Vital Signs Recent Vital Signs: Last Vital Signs Temp 98.3 F 09/23/17 07:56 Pulse 98 H 09/23/17 15:27 Resp 20 09/23/17 07:56 BP 136/83 09/23/17 15:27 Pulse Ox 98 09/23/17 15:27 - Labs Result Diagrams: 09/23/17 07:13 09/23/17 07:13 Labs: Laboratory Results - last 24 hr 09/22/17 09/23/17 09/23/17 19:28 07:13 07:13 WBC 2.4 L RBC 3.29 L Hgb 10.1 L Hct 30.7 L MCV 93.3 MCH 30.7 MCHC 32.9 L RDW 17.8 H Plt Count 38 L MPV 11.5 Neut % (Auto) 58.4 Lymph % (Auto) 24.8 Nye % (Auto) 9.7 Eos % (Auto) 5.8 H Baso % (Auto) 1.3 Neut # 1.4 L Lymph # 0.6 L Nye # 0.2 Eos # 0.1 Baso # 0.0 Sodium 142 Potassium 3.9 Chloride 114 H Carbon Dioxide 25 Anion Gap 7 L BUN 7 L Creatinine 0.6 L Est GFR ( Amer) > 60 Est GFR (Non-Af Amer) > 60 Random Glucose 94 Calcium 7.4 L Urine Opiates Screen Positive H Urine Methadone Screen Negative Ur Barbiturates Screen Negative Ur Phencyclidine Scrn Negative Ur Amphetamines Screen Negative U Benzodiazepines Scrn Negative U Oth Cocaine Metabols Positive H U Cannabinoids Screen Negative Assessment & Plan (1) Pancytopenia Assessment and Plan: suspect liver disease related; heterogenous liver, splenomegaly and varices noted on CT scan will check ferritin, retic count, b12, folate to characterize the patients anemia will check HIV and hepatitis panel may have an element of bone marrow suppression from recent alcohol use goal plt >50,000 for urologic surgery; may require transfusion support Status: Acute (2) Coagulopathy Assessment and Plan: suspect liver disease will give a dose of vitamin k IV goal INR < 1.5 prior to surgery Thank you for this interesting consult. Status: Acute
[2017-09-23] MEDS ORDERED: Phytonadione 10 mg/ml Inj (Adult) IV STA (21:19)
[2017-09-24] MEDS: Ciprofloxacin 400mg/200ml D5W 400 MG/200 ML BAG IVPB SCH ×2 (00:03→12:07)
[2017-09-24] MEDS: Dextrose 5%/0.45% NS 1,000 ML IV SCH ×3 (04:15→20:16)
[2017-09-24 07:26] LABS: BASO % 0.3 % (0.0-2.0); EOS # 0.1 K/uL (0.0-0.7); EOS % 4.4 % (0.0-4.0); HEMATOCRIT 30.8 % (35.0-51.0); LYMPH # 0.7 K/uL (1.0-4.3); LYMPH % 21.7 % (20.0-40.0); MEAN CELL VOLUME 93.5 fL (80.0-94.0); MEAN CORPUSCULAR HEMOGLOBIN 31.2 pg (27.0-31.0); MEAN CORPUSCULAR HGB CONC 33.4 g/dL (33.0-37.0); MEAN PLATELET VOLUME 11.3 fL (7.2-11.7); MONO # 0.3 K/uL (0.0-0.8); MONO % 9.1 % (0.0-10.0); NRBC % 0.3 % (0.0-2.0); RED CELL DISTRIBUTION WIDTH 17.7 % (11.5-14.5); WHITE BLOOD COUNT 3.1 K/uL (4.8-10.8)
[2017-09-24 07:46] LABS: ALKALINE PHOSPHATASE 96 U/L (38-126); ALT/SGPT 91 U/L (21-72); AST/SGOT 135 U/L (17-59); BILIRUBIN,TOTAL 2.5 mg/dL (0.2-1.3); BLOOD UREA NITROGEN 8 mg/dL (9-20); CALCIUM 7.7 mg/dl (8.6-10.4); CARBON DIOXIDE 25 mmol/L (22-30); CHLORIDE 114 mmol/L (98-107); GFR AFRICAN-AMERICAN > 60; GLUCOSE,RANDOM 113 mg/dL (75-110); POTASSIUM 3.9 mmol/L (3.6-5.2); SODIUM 142 mmol/L (132-148); TOTAL PROTEIN 6.2 g/dL (6.3-8.3)
[2017-09-24 07:47] LABS: ALB/GLOB RATIO 0.6 (1.0-2.1)
[2017-09-24 08:53] LABS: FOLATE > 20.0 ng/mL
[2017-09-24] MEDS ORDERED: Influenza Vaccine 60 mcg/0.5 mL SYR (4YR UP) IM ONE (10:00)
[2017-09-24] MEDS ORDERED: Pneumococcal 23-Valent Vaccine IM ONE (10:00)
--- NOTE | 2017-09-24 13:50 | CP.PCM.PN ---
Subjective - Date & Time of Evaluation Date of Evaluation: 09/24/17 Time of Evaluation: 13:48 - Subjective Subjective: CHIEF COMPLAINTS TODAY : LOWER BACK PAIN DYSURIA ROS. HEENT : N. Resp : No cough, wheezing ,pleuritic CP ,or hemoptysis Cardio : No anginal CP, PND, orthopnea, palpitation GI : No abd.pain, n/v ,diarrhea or GI bleeding . LEGUILLON DEBEADER : No headache, vertigo, focal deficit. Musculoskel : No joint swelling , Derm : No rash Psych : Normal affect. Ext : No swelling ,calf pain PE. Pt. is alert awake in no distress. V.S As noted in the chart Head ,ear nose,throat and eyes : Normal. Neck : Supple with normal carotids. Lungs: Clear air entry. Heart : S1 & S2 normal with S4. No murmur. Abd : Soft with normal bowel sounds. Neuro : Moves all ext. with no localized deficit. Ext : No edema with intact pulses.Non tender calves Derm : No rashes or decubitus ulcer. LABS/RADIOLOGY PANCYTOPENIA HEP C POS , OLD ASSESSMENT/PLAN : IV AB HEM EVAL APPRECIATED AWAITING CYSTO AND REMOVAL OF STENT/STONE Objective - Vital Signs/Intake and Output Vital Signs (last 24 hours): Temp Pulse Resp BP Pulse Ox 97.3 F L 97 H 20 142/88 98 09/24/17 08:36 09/24/17 08:36 09/24/17 08:36 09/24/17 08:36 09/24/17 08:36 Intake and Output: 09/24/17 09/24/17 11:59 23:59 Intake Total 1050 Output Total 850 Balance 200 - Medications Medications: Current Medications Al Hydrox/Mg Hydrox/Simethicone (Maalox 30 Ml) 30 ml PO TID PRN PRN Reason: Indigestion / Heartburn Last Admin: 09/23/17 09:00 Dose: 30 ml Clonidine HCl (Catapres) 0.1 mg PO Q8 PRN PRN Reason: COWS Score More or Equal to 5 Folic Acid (Folic Acid) 1 mg PO DAILY [facility] Last Admin: 09/24/17 09:47 Dose: 1 mg Gabapentin (Neurontin) 100 mg PO TID [facility] Last Admin: 09/24/17 13:32 Dose: 100 mg Ciprofloxacin (Cipro 400mg/200ml Dsw) 400 mg in 200 mls @ 133 mls/hr IVPB Q12H [facility] Last Admin: 09/24/17 12:07 Dose: 133 mls/hr Dextrose/Sodium Chloride (Dextrose 5%/0.45% Ns 1000 Ml) 1,000 mls @ 100 mls/hr IV .Q10H [facility] Last Admin: 09/24/17 13:25 Dose: Not Given Loperamide HCl (Imodium) 2 mg PO Q8 PRN PRN Reason: Diarrhea Lorazepam (Ativan) 0.5 mg IVP Q6H PRN PRN Reason: Anxiety Last Admin: 09/24/17 09:29 Dose: 0.5 mg Methadone HCl (Methadone) 15 mg PO DAILY [facility] PRN Reason: Taper Stop: 09/27/17 09:59 Last Admin: 09/24/17 09:46 Dose: 15 mg Ondansetron HCl (Zofran Tab) 4 mg PO Q8 PRN PRN Reason: Nausea/Vomiting Tamsulosin HCl (Flomax) 0.4 mg PO DAILY [facility] Last Admin: 09/24/17 09:46 Dose: 0.4 mg Thiamine HCl (Vitamin B1 Tab) 100 mg PO DAILY [facility] Last Admin: 09/24/17 09:46 Dose: 100 mg - Labs Labs: 09/24/17 07:05 09/24/17 07:05 PT 20.2 SECONDS (9.7-12.2) H 09/21/17 18:58 INR 1.8 09/21/17 18:58 APTT 44 SECONDS (21-34) H 09/21/17 18:58 Assessment and Plan (1) Renal stone Status: Acute (2) UTI (urinary tract infection) Status: Acute (3) Ureteral stent retained Status: Acute (4) Abdominal pain Status: Acute
--- NOTE | 2017-09-24 21:53 | CP.PCM.PN ---
Subjective - Date & Time of Evaluation Date of Evaluation: 09/24/17 Time of Evaluation: 17:00 - Subjective Subjective: Has body aches Hep C Ab positive Objective - Vital Signs/Intake and Output Vital Signs (last 24 hours): Temp Pulse Resp BP Pulse Ox 98.1 F 102 H 20 123/69 98 09/24/17 15:00 09/24/17 15:00 09/24/17 15:00 09/24/17 15:00 09/24/17 15:00 Intake and Output: 09/24/17 09/25/17 18:59 06:59 Intake Total 1100 Output Total 600 Balance 500 - Medications Medications: Current Medications Al Hydrox/Mg Hydrox/Simethicone (Maalox 30 Ml) 30 ml PO TID PRN PRN Reason: Indigestion / Heartburn Last Admin: 09/23/17 09:00 Dose: 30 ml Clonidine HCl (Catapres) 0.1 mg PO Q8 PRN PRN Reason: COWS Score More or Equal to 5 Folic Acid (Folic Acid) 1 mg PO DAILY [facility] Last Admin: 09/24/17 09:47 Dose: 1 mg Gabapentin (Neurontin) 100 mg PO TID [facility] Last Admin: 09/24/17 17:32 Dose: 100 mg Ciprofloxacin (Cipro 400mg/200ml Dsw) 400 mg in 200 mls @ 133 mls/hr IVPB Q12H [facility] Last Admin: 09/24/17 12:07 Dose: 133 mls/hr Dextrose/Sodium Chloride (Dextrose 5%/0.45% Ns 1000 Ml) 1,000 mls @ 100 mls/hr IV .Q10H [facility] Last Admin: 09/24/17 20:16 Dose: 100 mls/hr Loperamide HCl (Imodium) 2 mg PO Q8 PRN PRN Reason: Diarrhea Methadone HCl (Methadone) 15 mg PO DAILY [facility] PRN Reason: Taper Stop: 09/27/17 09:59 Last Admin: 09/24/17 09:46 Dose: 15 mg Ondansetron HCl (Zofran Tab) 4 mg PO Q8 PRN PRN Reason: Nausea/Vomiting Tamsulosin HCl (Flomax) 0.4 mg PO DAILY [facility] Last Admin: 09/24/17 09:46 Dose: 0.4 mg Thiamine HCl (Vitamin B1 Tab) 100 mg PO DAILY [facility] Last Admin: 09/24/17 09:46 Dose: 100 mg - Labs Labs: 09/24/17 07:05 09/24/17 07:05 PT 20.2 SECONDS (9.7-12.2) H 09/21/17 18:58 INR 1.8 09/21/17 18:58 APTT 44 SECONDS (21-34) H 09/21/17 18:58 - Head Exam Head Exam: ATRAUMATIC - Eye Exam Eye Exam: Normal appearance - ENT Exam ENT Exam: Mucous Membranes Dry - Respiratory Exam Respiratory Exam: NORMAL BREATHING PATTERN - Cardiovascular Exam Cardiovascular Exam: +S1, +S2 - GI/Abdominal Exam GI & Abdominal Exam: Normal Bowel Sounds Assessment and Plan (1) Pancytopenia Assessment & Plan: suspect liver disease with splenic sequetration Hep C Ab positive iron deficiency anemia likely from occult GI blood loss from varices; will start IV iron Status: Acute (2) Coagulopathy Assessment & Plan: liver disease s/p vit k Status: Acute
[2017-09-25] MEDS: Ciprofloxacin 400mg/200ml D5W 400 MG/200 ML BAG IVPB SCH ×2 (00:26→11:47)
[2017-09-25] MEDS: Aluminum Hydroxide/Magnesium Hydroxide Susp (30 mL) PO PRN (00:26)
[2017-09-25] MEDS: Dextrose 5%/0.45% NS 1,000 ML IV SCH ×4 (00:31→22:23)
[2017-09-25] MEDS ORDERED: DiphenhydrAMINE 50 mg/ml Inj IVP ONE (02:09)
[2017-09-25 07:17] LABS: BASO % 0.4 % (0.0-2.0); EOS # 0.2 K/uL (0.0-0.7); HEMATOCRIT 27.9 % (35.0-51.0); LYMPH # 0.7 K/uL (1.0-4.3); LYMPH % 25.3 % (20.0-40.0); MEAN CELL VOLUME 93.3 fL (80.0-94.0); MEAN CORPUSCULAR HEMOGLOBIN 31.1 pg (27.0-31.0); MEAN CORPUSCULAR HGB CONC 33.4 g/dL (33.0-37.0); MEAN PLATELET VOLUME 11.3 fL (7.2-11.7); MONO # 0.3 K/uL (0.0-0.8); MONO % 9.9 % (0.0-10.0); NRBC % 0.1 % (0.0-2.0); RED CELL DISTRIBUTION WIDTH 17.2 % (11.5-14.5); WHITE BLOOD COUNT 2.8 K/uL (4.8-10.8)
[2017-09-25 07:27] LABS: ALKALINE PHOSPHATASE 83 U/L (38-126); ALT/SGPT 91 U/L (21-72); AST/SGOT 121 U/L (17-59); BILIRUBIN,TOTAL 1.8 mg/dL (0.2-1.3); BLOOD UREA NITROGEN 9 mg/dL (9-20); CALCIUM 7.2 mg/dl (8.6-10.4); CARBON DIOXIDE 25 mmol/L (22-30); CHLORIDE 114 mmol/L (98-107); GFR AFRICAN-AMERICAN > 60; GLUCOSE,RANDOM 96 mg/dL (75-110); POTASSIUM 3.4 mmol/L (3.6-5.2); SODIUM 142 mmol/L (132-148); TOTAL PROTEIN 6.7 g/dL (6.3-8.3)
[2017-09-25 07:39] LABS: ALB/GLOB RATIO 0.4 (1.0-2.1)
[2017-09-25] MEDS ORDERED: Ferric Sodium Gluconat Complex 62.5 mg/5 ml Vial IVPB SCH (10:00)
[2017-09-25] MEDS: Ferric Sodium Gluconat Complex 125 MG in Sodium Chloride 0.9% 100 ML IVPB SCH (12:11)
--- NOTE | 2017-09-25 13:02 | CP.PCM.PN ---
Subjective - Date & Time of Evaluation Date of Evaluation: 09/25/17 Time of Evaluation: 13:02 - Subjective Subjective: CHIEF COMPLAINTS TODAY : LOWER BACK PAIN DYSURIA ROS. HEENT : N. Resp : No cough, wheezing ,pleuritic CP ,or hemoptysis Cardio : No anginal CP, PND, orthopnea, palpitation GI : No abd.pain, n/v ,diarrhea or GI bleeding . ORTHODONTIST ASSISTANT : No headache, vertigo, focal deficit. Musculoskel : No joint swelling , Derm : No rash Psych : Normal affect. Ext : No swelling ,calf pain PE. Pt. is alert awake in no distress. V.S As noted in the chart Head ,ear nose,throat and eyes : Normal. Neck : Supple with normal carotids. Lungs: Clear air entry. Heart : S1 & S2 normal with S4. No murmur. Abd : Soft with normal bowel sounds. Neuro : Moves all ext. with no localized deficit. Ext : No edema with intact pulses.Non tender calves Derm : No rashes or decubitus ulcer. LABS/RADIOLOGY PANCYTOPENIA HEP C POS , OLD ASSESSMENT/PLAN : IV AB HEM EVAL APPRECIATED AWAITING CYSTO AND REMOVAL OF STENT/STONE ON IV IRON Objective - Vital Signs/Intake and Output Vital Signs (last 24 hours): Temp Pulse Resp BP Pulse Ox 98.3 F 88 20 116/73 97 09/25/17 12:36 09/25/17 12:36 09/25/17 12:36 09/25/17 12:36 09/25/17 12:36 Intake and Output: 09/25/17 09/25/17 11:59 23:59 Intake Total 1210 Output Total 1100 Balance 110 - Medications Medications: Current Medications Al Hydrox/Mg Hydrox/Simethicone (Maalox 30 Ml) 30 ml PO TID PRN PRN Reason: Indigestion / Heartburn Last Admin: 09/25/17 00:26 Dose: 30 ml Clonidine HCl (Catapres) 0.1 mg PO Q8 PRN PRN Reason: COWS Score More or Equal to 5 Folic Acid (Folic Acid) 1 mg PO DAILY [facility] Last Admin: 09/25/17 09:33 Dose: 1 mg Gabapentin (Neurontin) 100 mg PO TID [facility] Last Admin: 09/25/17 09:40 Dose: 100 mg Ciprofloxacin (Cipro 400mg/200ml Dsw) 400 mg in 200 mls @ 133 mls/hr IVPB Q12H [facility] Last Admin: 09/25/17 11:47 Dose: 133 mls/hr Dextrose/Sodium Chloride (Dextrose 5%/0.45% Ns 1000 Ml) 1,000 mls @ 100 mls/hr IV .Q10H [facility] Last Admin: 09/25/17 11:45 Dose: 100 mls/hr Ferric Sodium Gluconate Complex 125 mg/ Sodium Chloride 110 mls @ 110 mls/hr IVPB DAILY [facility] Stop: 10/03/17 12:01 Last Admin: 09/25/17 12:11 Dose: 110 mls/hr Loperamide HCl (Imodium) 2 mg PO Q8 PRN PRN Reason: Diarrhea Methadone HCl (Methadone) 10 mg PO DAILY [facility] PRN Reason: Taper Stop: 09/27/17 09:59 Last Admin: 09/25/17 09:31 Dose: 10 mg Ondansetron HCl (Zofran Tab) 4 mg PO Q8 PRN PRN Reason: Nausea/Vomiting Tamsulosin HCl (Flomax) 0.4 mg PO DAILY [facility] Last Admin: 09/25/17 09:33 Dose: 0.4 mg Thiamine HCl (Vitamin B1 Tab) 100 mg PO DAILY [facility] Last Admin: 09/25/17 09:33 Dose: 100 mg - Labs Labs: 09/25/17 06:52 09/25/17 06:52 PT 20.2 SECONDS (9.7-12.2) H 09/21/17 18:58 INR 1.8 09/21/17 18:58 APTT 44 SECONDS (21-34) H 09/21/17 18:58 Assessment and Plan (1) Renal stone Status: Acute (2) UTI (urinary tract infection) Status: Acute (3) Ureteral stent retained Status: Acute (4) Abdominal pain Status: Acute
--- NOTE | 2017-09-25 21:00 | CP.PCM.PN ---
Subjective - Date & Time of Evaluation Date of Evaluation: 09/25/17 Time of Evaluation: 18:00 - Subjective Subjective: Feels weak Objective - Vital Signs/Intake and Output Vital Signs (last 24 hours): Temp Pulse Resp BP Pulse Ox 98.2 F 81 20 119/70 97 09/25/17 15:00 09/25/17 15:00 09/25/17 15:00 09/25/17 15:00 09/25/17 15:00 Intake and Output: 09/25/17 09/26/17 18:59 06:59 Intake Total 1500 Output Total 1200 Balance 300 - Medications Medications: Current Medications Al Hydrox/Mg Hydrox/Simethicone (Maalox 30 Ml) 30 ml PO TID PRN PRN Reason: Indigestion / Heartburn Last Admin: 09/25/17 00:26 Dose: 30 ml Clonidine HCl (Catapres) 0.1 mg PO Q8 PRN PRN Reason: COWS Score More or Equal to 5 Folic Acid (Folic Acid) 1 mg PO DAILY [facility] Last Admin: 09/25/17 09:33 Dose: 1 mg Gabapentin (Neurontin) 100 mg PO TID [facility] Last Admin: 09/25/17 18:53 Dose: 100 mg Ciprofloxacin (Cipro 400mg/200ml Dsw) 400 mg in 200 mls @ 133 mls/hr IVPB Q12H [facility] Last Admin: 09/25/17 11:47 Dose: 133 mls/hr Dextrose/Sodium Chloride (Dextrose 5%/0.45% Ns 1000 Ml) 1,000 mls @ 100 mls/hr IV .Q10H [facility] Last Admin: 09/25/17 11:45 Dose: 100 mls/hr Ferric Sodium Gluconate Complex 125 mg/ Sodium Chloride 110 mls @ 110 mls/hr IVPB DAILY [facility] Stop: 10/03/17 12:01 Last Admin: 09/25/17 12:11 Dose: 110 mls/hr Loperamide HCl (Imodium) 2 mg PO Q8 PRN PRN Reason: Diarrhea Methadone HCl (Methadone) 10 mg PO DAILY [facility] PRN Reason: Taper Stop: 09/27/17 09:59 Last Admin: 09/25/17 09:31 Dose: 10 mg Ondansetron HCl (Zofran Tab) 4 mg PO Q8 PRN PRN Reason: Nausea/Vomiting Tamsulosin HCl (Flomax) 0.4 mg PO DAILY [facility] Last Admin: 09/25/17 09:33 Dose: 0.4 mg Thiamine HCl (Vitamin B1 Tab) 100 mg PO DAILY [facility] Last Admin: 09/25/17 09:33 Dose: 100 mg - Labs Labs: 09/25/17 06:52 09/25/17 06:52 PT 20.2 SECONDS (9.7-12.2) H 09/21/17 18:58 INR 1.8 09/21/17 18:58 APTT 44 SECONDS (21-34) H 09/21/17 18:58 - Head Exam Head Exam: ATRAUMATIC - Eye Exam Eye Exam: Normal appearance - ENT Exam ENT Exam: Mucous Membranes Dry - Respiratory Exam Respiratory Exam: NORMAL BREATHING PATTERN - Cardiovascular Exam Cardiovascular Exam: +S1, +S2 - GI/Abdominal Exam GI & Abdominal Exam: Normal Bowel Sounds Assessment and Plan (1) Pancytopenia Assessment & Plan: suspect liver disease with splenic sequetration Hep C Ab positive iron deficiency anemia likely from occult GI blood loss from varices; on IV iron Status: Acute (2) Coagulopathy Assessment & Plan: liver disease s/p vit k Status: Acute
[2017-09-26] MEDS: Ciprofloxacin 400mg/200ml D5W 400 MG/200 ML BAG IVPB SCH ×2 (00:30→12:54)
[2017-09-26] MEDS: Dextrose 5%/0.45% NS 1,000 ML IV SCH (06:17)
[2017-09-26 07:30] LABS: BASO % 0.6 % (0.0-2.0); EOS # 0.2 K/uL (0.0-0.7); EOS % 7.8 % (0.0-4.0); HEMATOCRIT 28.3 % (35.0-51.0); LYMPH # 0.7 K/uL (1.0-4.3); LYMPH % 29.5 % (20.0-40.0); MEAN CELL VOLUME 93.5 fL (80.0-94.0); MEAN CORPUSCULAR HEMOGLOBIN 31.6 pg (27.0-31.0); MEAN CORPUSCULAR HGB CONC 33.8 g/dL (33.0-37.0); MEAN PLATELET VOLUME 11.5 fL (7.2-11.7); MONO # 0.2 K/uL (0.0-0.8); MONO % 10.4 % (0.0-10.0); NRBC % 0.3 % (0.0-2.0); RED CELL DISTRIBUTION WIDTH 17.3 % (11.5-14.5); WHITE BLOOD COUNT 2.4 K/uL (4.8-10.8)
[2017-09-26 08:05] LABS: ALB/GLOB RATIO 0.5 (1.0-2.1); ALKALINE PHOSPHATASE 107 U/L (38-126); ALT/SGPT 87 U/L (21-72); AST/SGOT 121 U/L (17-59); BILIRUBIN,TOTAL 1.8 mg/dL (0.2-1.3); BLOOD UREA NITROGEN 9 mg/dL (9-20); CALCIUM 7.3 mg/dl (8.6-10.4); CARBON DIOXIDE 24 mmol/L (22-30); CHLORIDE 113 mmol/L (98-107); GFR AFRICAN-AMERICAN > 60; GLUCOSE,RANDOM 101 mg/dL (75-110); POTASSIUM 3.7 mmol/L (3.6-5.2); SODIUM 139 mmol/L (132-148); TOTAL PROTEIN 5.6 g/dL (6.3-8.3)
[2017-09-26] MEDS: Ferric Sodium Gluconat Complex 125 MG in Sodium Chloride 0.9% 100 ML IVPB SCH (10:10)
[2017-09-26] MEDS ORDERED: Ferric Sodium Gluconat Complex 62.5 mg/5 ml Vial ONE (10:12)
--- NOTE | 2017-09-26 14:29 | CP.PCM.PN ---
Subjective - Date & Time of Evaluation Date of Evaluation: 09/26/17 Time of Evaluation: 14:29 - Subjective Subjective: CHIEF COMPLAINTS TODAY : LOWER BACK PAIN DYSURIA ROS. HEENT : N. Resp : No cough, wheezing ,pleuritic CP ,or hemoptysis Cardio : No anginal CP, PND, orthopnea, palpitation GI : No abd.pain, n/v ,diarrhea or GI bleeding . 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 Musculoskel : No joint swelling , Derm : No rash Psych : Normal affect. Ext : No swelling ,calf pain PE. Pt. is alert awake in no distress. V.S As noted in the chart Head ,ear nose,throat and eyes : Normal. Neck : Supple with normal carotids. Lungs: Clear air entry. Heart : S1 & S2 normal with S4. No murmur. Abd : Soft with normal bowel sounds. Neuro : Moves all ext. with no localized deficit. Ext : No edema with intact pulses.Non tender calves Derm : No rashes or decubitus ulcer. LABS/RADIOLOGY PANCYTOPENIA HEP C POS , OLD ASSESSMENT/PLAN : IV AB HEM EVAL APPRECIATED AWAITING CYSTO AND REMOVAL OF STENT/STONE ON IV IRON Objective - Vital Signs/Intake and Output Vital Signs (last 24 hours): Temp Pulse Resp BP Pulse Ox 98 F 90 20 112/76 95 09/26/17 09:26 09/26/17 09:26 09/26/17 09:26 09/26/17 09:26 09/26/17 09:26 Intake and Output: 09/26/17 09/26/17 11:59 23:59 Intake Total 3150 Output Total 950 Balance 2200 - Medications Medications: Current Medications Al Hydrox/Mg Hydrox/Simethicone (Maalox 30 Ml) 30 ml PO TID PRN PRN Reason: Indigestion / Heartburn Last Admin: 09/25/17 00:26 Dose: 30 ml Clonidine HCl (Catapres) 0.1 mg PO Q8 PRN PRN Reason: COWS Score More or Equal to 5 Folic Acid (Folic Acid) 1 mg PO DAILY [facility] Last Admin: 09/26/17 10:08 Dose: 1 mg Gabapentin (Neurontin) 100 mg PO TID [facility] Last Admin: 09/26/17 13:02 Dose: 100 mg Ciprofloxacin (Cipro 400mg/200ml Dsw) 400 mg in 200 mls @ 133 mls/hr IVPB Q12H [facility] Last Admin: 09/26/17 12:54 Dose: 133 mls/hr Ferric Sodium Gluconate Complex 125 mg/ Sodium Chloride 110 mls @ 110 mls/hr IVPB DAILY [facility] Stop: 10/03/17 12:01 Last Admin: 09/26/17 10:10 Dose: 110 mls/hr Loperamide HCl (Imodium) 2 mg PO Q8 PRN PRN Reason: Diarrhea Methadone HCl (Methadone) 5 mg PO DAILY [facility] PRN Reason: Taper Stop: 09/27/17 09:59 Last Admin: 09/26/17 10:06 Dose: 5 mg Ondansetron HCl (Zofran Tab) 4 mg PO Q8 PRN PRN Reason: Nausea/Vomiting Tamsulosin HCl (Flomax) 0.4 mg PO DAILY [facility] Last Admin: 09/26/17 10:09 Dose: 0.4 mg Thiamine HCl (Vitamin B1 Tab) 100 mg PO DAILY [facility] Last Admin: 09/26/17 10:08 Dose: 100 mg - Labs Labs: 09/26/17 07:16 09/26/17 07:16 PT 20.2 SECONDS (9.7-12.2) H 09/21/17 18:58 INR 1.8 09/21/17 18:58 APTT 44 SECONDS (21-34) H 09/21/17 18:58 Assessment and Plan (1) Renal stone Status: Acute (2) UTI (urinary tract infection) Status: Acute (3) Ureteral stent retained Status: Acute (4) Abdominal pain Status: Acute
[2017-09-27] MEDS: Ciprofloxacin 400mg/200ml D5W 400 MG/200 ML BAG IVPB SCH ×2 (00:13→11:04)
[2017-09-27 07:00] LABS: BASO % 0.3 % (0.0-2.0); EOS # 0.2 K/uL (0.0-0.7); EOS % 6.6 % (0.0-4.0); HEMATOCRIT 29.6 % (35.0-51.0); LYMPH # 0.8 K/uL (1.0-4.3); LYMPH % 30.6 % (20.0-40.0); MEAN CORPUSCULAR HEMOGLOBIN 31.4 pg (27.0-31.0); MEAN CORPUSCULAR HGB CONC 33.8 g/dL (33.0-37.0); MEAN PLATELET VOLUME 11.8 fL (7.2-11.7); MONO # 0.2 K/uL (0.0-0.8); NRBC % 0.1 % (0.0-2.0); RED CELL DISTRIBUTION WIDTH 16.9 % (11.5-14.5); WHITE BLOOD COUNT 2.6 K/uL (4.8-10.8)
[2017-09-27 07:12] LABS: INR 1.9
[2017-09-27 07:34] LABS: ALB/GLOB RATIO 0.5 (1.0-2.1); ALKALINE PHOSPHATASE 114 U/L (38-126); ALT/SGPT 93 U/L (21-72); AST/SGOT 133 U/L (17-59); BILIRUBIN,TOTAL 1.8 mg/dL (0.2-1.3); BLOOD UREA NITROGEN 8 mg/dL (9-20); CALCIUM 7.4 mg/dl (8.6-10.4); CARBON DIOXIDE 25 mmol/L (22-30); CHLORIDE 113 mmol/L (98-107); GFR AFRICAN-AMERICAN > 60; GLUCOSE,RANDOM 82 mg/dL (75-110); POTASSIUM 3.8 mmol/L (3.6-5.2); SODIUM 139 mmol/L (132-148)
[2017-09-27] MEDS: Ferric Sodium Gluconat Complex 125 MG in Sodium Chloride 0.9% 100 ML IVPB SCH (09:58)
--- NOTE | 2017-09-27 13:32 | CP.PCM.PN ---
Subjective - Date & Time of Evaluation Date of Evaluation: 09/27/17 Time of Evaluation: 13:32 - Subjective Subjective: CHIEF COMPLAINTS TODAY : LOWER BACK PAIN DYSURIA ROS. HEENT : N. Resp : No cough, wheezing ,pleuritic CP ,or hemoptysis Cardio : No anginal CP, PND, orthopnea, palpitation GI : No abd.pain, n/v ,diarrhea or GI bleeding . 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 Musculoskel : No joint swelling , Derm : No rash Psych : Normal affect. Ext : No swelling ,calf pain PE. Pt. is alert awake in no distress. V.S As noted in the chart Head ,ear nose,throat and eyes : Normal. Neck : Supple with normal carotids. Lungs: Clear air entry. Heart : S1 & S2 normal with S4. No murmur. Abd : Soft with normal bowel sounds. Neuro : Moves all ext. with no localized deficit. Ext : No edema with intact pulses.Non tender calves Derm : No rashes or decubitus ulcer. LABS/RADIOLOGY PANCYTOPENIA HEP C POS , OLD ASSESSMENT/PLAN : IV AB HEM EVAL APPRECIATED AWAITING CYSTO AND REMOVAL OF STENT/STONE ON IV IRON Objective - Vital Signs/Intake and Output Vital Signs (last 24 hours): Temp Pulse Resp BP Pulse Ox 97.9 F 82 20 122/72 100 09/27/17 07:20 09/27/17 07:20 09/27/17 07:20 09/27/17 07:20 09/27/17 07:20 Intake and Output: 09/27/17 09/27/17 11:59 23:59 Intake Total 400 Balance 400 - Medications Medications: Current Medications Al Hydrox/Mg Hydrox/Simethicone (Maalox 30 Ml) 30 ml PO TID PRN PRN Reason: Indigestion / Heartburn Last Admin: 09/25/17 00:26 Dose: 30 ml Clonidine HCl (Catapres) 0.1 mg PO Q8 PRN PRN Reason: COWS Score More or Equal to 5 Folic Acid (Folic Acid) 1 mg PO DAILY [facility] Last Admin: 09/27/17 09:01 Dose: Not Given Gabapentin (Neurontin) 100 mg PO TID [facility] Last Admin: 09/27/17 09:02 Dose: Not Given Ciprofloxacin (Cipro 400mg/200ml Dsw) 400 mg in 200 mls @ 133 mls/hr IVPB Q12H [facility] Last Admin: 09/27/17 11:04 Dose: 133 mls/hr Ferric Sodium Gluconate Complex 125 mg/ Sodium Chloride 110 mls @ 110 mls/hr IVPB DAILY [facility] Stop: 10/03/17 12:01 Last Admin: 09/27/17 09:58 Dose: 110 mls/hr Loperamide HCl (Imodium) 2 mg PO Q8 PRN PRN Reason: Diarrhea Ondansetron HCl (Zofran Tab) 4 mg PO Q8 PRN PRN Reason: Nausea/Vomiting Tamsulosin HCl (Flomax) 0.4 mg PO DAILY [facility] Last Admin: 09/27/17 09:01 Dose: Not Given Thiamine HCl (Vitamin B1 Tab) 100 mg PO DAILY [facility] Last Admin: 09/27/17 09:02 Dose: Not Given - Labs Labs: 09/27/17 06:52 09/27/17 06:52 PT 21.5 SECONDS (9.7-12.2) H 09/27/17 06:52 INR 1.9 09/27/17 06:52 APTT 45 SECONDS (21-34) H 09/27/17 06:52 Assessment and Plan (1) Renal stone Status: Acute (2) UTI (urinary tract infection) Status: Acute (3) Ureteral stent retained Status: Acute (4) Abdominal pain Status: Acute
--- NOTE | 2017-09-27 23:41 | CP.PCM.PN ---
Subjective - Date & Time of Evaluation Date of Evaluation: 09/27/17 Time of Evaluation: 18:00 - Subjective Subjective: Feeling better but still has flank pain. Objective - Vital Signs/Intake and Output Vital Signs (last 24 hours): Temp Pulse Resp BP Pulse Ox 97.1 F L 78 20 120/76 97 09/27/17 15:35 09/27/17 15:35 09/27/17 15:35 09/27/17 15:35 09/27/17 15:35 Intake and Output: 09/27/17 09/28/17 18:59 06:59 Intake Total 300 300 Balance 300 300 - Medications Medications: Current Medications Al Hydrox/Mg Hydrox/Simethicone (Maalox 30 Ml) 30 ml PO TID PRN PRN Reason: Indigestion / Heartburn Last Admin: 09/25/17 00:26 Dose: 30 ml Clonidine HCl (Catapres) 0.1 mg PO Q8 PRN PRN Reason: COWS Score More or Equal to 5 Folic Acid (Folic Acid) 1 mg PO DAILY [facility] Last Admin: 09/27/17 09:01 Dose: Not Given Gabapentin (Neurontin) 100 mg PO TID [facility] Last Admin: 09/27/17 17:53 Dose: 100 mg Ciprofloxacin (Cipro 400mg/200ml Dsw) 400 mg in 200 mls @ 133 mls/hr IVPB Q12H [facility] Last Admin: 09/27/17 11:04 Dose: 133 mls/hr Ferric Sodium Gluconate Complex 125 mg/ Sodium Chloride 110 mls @ 110 mls/hr IVPB DAILY [facility] Stop: 10/03/17 12:01 Last Admin: 09/27/17 09:58 Dose: 110 mls/hr Loperamide HCl (Imodium) 2 mg PO Q8 PRN PRN Reason: Diarrhea Ondansetron HCl (Zofran Tab) 4 mg PO Q8 PRN PRN Reason: Nausea/Vomiting Tamsulosin HCl (Flomax) 0.4 mg PO DAILY [facility] Last Admin: 09/27/17 09:01 Dose: Not Given Thiamine HCl (Vitamin B1 Tab) 100 mg PO DAILY [facility] Last Admin: 09/27/17 09:02 Dose: Not Given - Labs Labs: 09/27/17 06:52 09/27/17 06:52 PT 21.5 SECONDS (9.7-12.2) H 09/27/17 06:52 INR 1.9 09/27/17 06:52 APTT 45 SECONDS (21-34) H 09/27/17 06:52 - Head Exam Head Exam: ATRAUMATIC - Eye Exam Eye Exam: Normal appearance - ENT Exam ENT Exam: Mucous Membranes Dry - Respiratory Exam Respiratory Exam: NORMAL BREATHING PATTERN - Cardiovascular Exam Cardiovascular Exam: +S1, +S2 - GI/Abdominal Exam GI & Abdominal Exam: Normal Bowel Sounds Assessment and Plan (1) Pancytopenia Assessment & Plan: suspect liver disease, hep c iron deficiency on IV iron for platelet transfusion tomorrow prior to OR; goal plt > 50,000 Status: Acute (2) Coagulopathy Assessment & Plan: liver disease s/p vit k for 2U FFP prior to OR; goal INR < 1.5 Status: Acute
[2017-09-28] MEDS: Ciprofloxacin 400mg/200ml D5W 400 MG/200 ML BAG IVPB SCH ×3 (00:10→23:55)
[2017-09-28] MEDS ORDERED: Iohexol 240 (50 ml) ONE (07:34)
[2017-09-28] MEDS ORDERED: cefTRIAXone IV 1 gm in Dextros 0 ML IVPB ONE (07:34)
[2017-09-28] MEDS ORDERED: Lidocaine 2% Jelly (Uro-Jet) ONE (07:35)
[2017-09-28] MEDS ORDERED: Gentamicin 80 mg in 0.9% NS 80 MG/100 ML BAG IVPB ONE (07:49)
[2017-09-28] MEDS ORDERED: Lactated Ringer's 1,000 ML IV ONE (07:50)
[2017-09-28] MEDS ORDERED: Propofol 10 mg/ml Inj (20 ML) ONE (07:58)
[2017-09-28] MEDS ORDERED: Midazolam 2 MG/2 ML VIAL ONE ×2 (07:58→08:57)
[2017-09-28] MEDS ORDERED: Lactated Ringer's 1,000 ML IV SCH (09:00)
[2017-09-28] MEDS ORDERED: Midazolam 2 MG/2 ML VIAL IVP PRN (09:04)
[2017-09-28] MEDS: HYDROmorphone 0.5 mg/0.5 ml ISec IVP PRN ×2 (09:10→09:30)
--- NOTE | 2017-09-28 11:09 | RAD ---
HISTORY: LT. URETER STONE COMPARISON: 09/21/2017 CT ABDOMEN AND PELVIS FINDINGS: BOWEL: Left and right stool retention. Left lower renal pole 9 x 5 mm calculus. 15 x 7 mm calculus -proximal left ureter -near left ureteral pelvic junction -contiguous with coursing left ureteral stent. The additional fainter CT calcifications are probably aadjacent to the proximal left ureteral coiling stent segment. No additional urolithiasis along the more distal left ureteral stent or within the pelvis noted. BONES: Transitional elements suggested: Rudimentary ribs and lumbosacral level transverse processes Bilateral superolateral hip joint space narrowing with left superolateral acetabular roof subchondral cystic changes. Ossific debris and/or os acetabula present bilaterally OTHER FINDINGS: Distal left ureteral stent coil projects over expected bladder IMPRESSION: Left urolithiasis with left ureteral stent as above
[2017-09-28] MEDS ORDERED: Sodium Chloride 0.9% 1,000 ML IV SCH (11:15)
[2017-09-28] MEDS: Sodium Chloride 0.9% 1,000 ML IV SCH ×2 (11:19→23:54)
[2017-09-28] MEDS: Ferric Sodium Gluconat Complex 125 MG in Sodium Chloride 0.9% 100 ML IVPB SCH (11:50)
[2017-09-28 12:05] LABS: BASO % 0.6 % (0.0-2.0); EOS # 0.2 K/uL (0.0-0.7); EOS % 5.7 % (0.0-4.0); HEMATOCRIT 31.6 % (35.0-51.0); LYMPH # 0.8 K/uL (1.0-4.3); LYMPH % 26.5 % (20.0-40.0); MEAN CELL VOLUME 94.2 fL (80.0-94.0); MEAN CORPUSCULAR HEMOGLOBIN 31.6 pg (27.0-31.0); MEAN CORPUSCULAR HGB CONC 33.6 g/dL (33.0-37.0); MEAN PLATELET VOLUME 11.6 fL (7.2-11.7); MONO # 0.2 K/uL (0.0-0.8); MONO % 6.7 % (0.0-10.0); NRBC % 0.2 % (0.0-2.0); RED CELL DISTRIBUTION WIDTH 17.3 % (11.5-14.5); WHITE BLOOD COUNT 2.9 K/uL (4.8-10.8)
[2017-09-28 12:12] LABS: INR 1.6
[2017-09-28 12:23] LABS: BLOOD UREA NITROGEN 10 mg/dL (9-20); CALCIUM 7.6 mg/dl (8.6-10.4); CARBON DIOXIDE 25 mmol/L (22-30); CHLORIDE 109 mmol/L (98-107); GFR AFRICAN-AMERICAN > 60; GLUCOSE,RANDOM 87 mg/dL (75-110); POTASSIUM 3.7 mmol/L (3.6-5.2); SODIUM 137 mmol/L (132-148)
--- NOTE | 2017-09-28 13:15 | CP.PCM.PN ---
Subjective - Date & Time of Evaluation Date of Evaluation: 09/28/17 Time of Evaluation: 13:14 - Subjective Subjective: FOR OR TODAY FFP INFUSING Objective - Vital Signs/Intake and Output Vital Signs (last 24 hours): Temp Pulse Resp BP Pulse Ox 98.4 F 81 10 L 138/83 100 09/28/17 10:00 09/28/17 10:00 09/28/17 10:00 09/28/17 10:00 09/28/17 10:00 Intake and Output: 09/28/17 09/28/17 11:59 23:59 Output Total 110 Balance -110 - Medications Medications: Current Medications Al Hydrox/Mg Hydrox/Simethicone (Maalox 30 Ml) 30 ml PO TID PRN PRN Reason: Indigestion / Heartburn Last Admin: 09/25/17 00:26 Dose: 30 ml Clonidine HCl (Catapres) 0.1 mg PO Q8 PRN PRN Reason: COWS Score More or Equal to 5 Folic Acid (Folic Acid) 1 mg PO DAILY [facility] Last Admin: 09/28/17 11:00 Dose: 1 mg Gabapentin (Neurontin) 100 mg PO TID [facility] Last Admin: 09/28/17 11:00 Dose: 100 mg Ciprofloxacin (Cipro 400mg/200ml Dsw) 400 mg in 200 mls @ 133 mls/hr IVPB Q12H [facility] Last Admin: 09/28/17 12:46 Dose: 133 mls/hr Ferric Sodium Gluconate Complex 125 mg/ Sodium Chloride 110 mls @ 110 mls/hr IVPB DAILY [facility] Stop: 10/03/17 12:01 Last Admin: 09/28/17 11:50 Dose: 110 mls/hr Lactated Ringer's (Lactated Ringer's) 1,000 mls @ 150 mls/hr IV .Q6H40M [facility] Last Admin: 09/28/17 09:00 Dose: Not Given Sodium Chloride (Sodium Chloride 0.9%) 1,000 mls @ 100 mls/hr IV .Q10H [facility] Last Admin: 09/28/17 11:19 Dose: 100 mls/hr Loperamide HCl (Imodium) 2 mg PO Q8 PRN PRN Reason: Diarrhea Lorazepam (Ativan) 0.5 mg IVP Q6H PRN PRN Reason: Anxiety Last Admin: 09/28/17 11:18 Dose: 0.5 mg Midazolam HCl (Versed Inj) 2 mg IVP ONCE PRN PRN Reason: Agitation/Restlessness Last Admin: 09/28/17 09:00 Dose: 2 mg Ondansetron HCl (Zofran Tab) 4 mg PO Q8 PRN PRN Reason: Nausea/Vomiting Tamsulosin HCl (Flomax) 0.4 mg PO DAILY [facility] Last Admin: 09/28/17 11:00 Dose: 0.4 mg Thiamine HCl (Vitamin B1 Tab) 100 mg PO DAILY [facility] Last Admin: 09/28/17 11:00 Dose: 100 mg - Labs Labs: 09/28/17 11:51 09/28/17 11:51 PT 18.3 SECONDS (9.7-12.2) H 09/28/17 11:51 INR 1.6 09/28/17 11:51 APTT 43 SECONDS (21-34) H 09/28/17 11:51 Assessment and Plan (1) Renal stone Status: Acute (2) UTI (urinary tract infection) Status: Acute (3) Ureteral stent retained Status: Acute (4) Abdominal pain Status: Acute
[2017-09-28] MEDS: Tramadol 25 mg PO PRN (17:31)
--- NOTE | 2017-09-28 17:31 | RAD ---
PROCEDURE: Fluoroscopy for left Left ureteroscopy HISTORY: Left ureteroscopy-fluoroscopy for COMPARISON: None TECHNIQUE: Total fluoroscopic time utilized during the procedure: 12.2 seconds. Total dose 0.21771 mGy cm squared FINDINGS: Submitted images from the current procedure: 7 Please refer to the physician's notes performing the procedure. IMPRESSION: Less than 1 hour fluoroscopic time utilized during performance of the procedure
--- NOTE | 2017-09-28 17:56 | CP.PCM.PN ---
Subjective - Date & Time of Evaluation Date of Evaluation: 09/28/17 Time of Evaluation: 15:00 - Subjective Subjective: No complaints post urologic procedure s/p platelet and FFP transfusion Objective - Vital Signs/Intake and Output Vital Signs (last 24 hours): Temp Pulse Resp BP Pulse Ox 98.7 F 105 H 20 147/76 100 09/28/17 15:00 09/28/17 15:00 09/28/17 15:00 09/28/17 15:00 09/28/17 15:00 Intake and Output: 09/28/17 09/28/17 06:59 18:59 Intake Total 300 750 Output Total 410 Balance 300 340 - Medications Medications: Current Medications Al Hydrox/Mg Hydrox/Simethicone (Maalox 30 Ml) 30 ml PO TID PRN PRN Reason: Indigestion / Heartburn Last Admin: 09/25/17 00:26 Dose: 30 ml Clonidine HCl (Catapres) 0.1 mg PO Q8 PRN PRN Reason: COWS Score More or Equal to 5 Folic Acid (Folic Acid) 1 mg PO DAILY [facility] Last Admin: 09/28/17 11:00 Dose: 1 mg Gabapentin (Neurontin) 100 mg PO TID [facility] Last Admin: 09/28/17 17:23 Dose: 100 mg Ciprofloxacin (Cipro 400mg/200ml Dsw) 400 mg in 200 mls @ 133 mls/hr IVPB Q12H [facility] Last Admin: 09/28/17 12:46 Dose: 133 mls/hr Ferric Sodium Gluconate Complex 125 mg/ Sodium Chloride 110 mls @ 110 mls/hr IVPB DAILY [facility] Stop: 10/03/17 12:01 Last Admin: 09/28/17 11:50 Dose: 110 mls/hr Sodium Chloride (Sodium Chloride 0.9%) 1,000 mls @ 100 mls/hr IV .Q10H [facility] Last Admin: 09/28/17 11:19 Dose: 100 mls/hr Lactulose (Enulose) 20 gm PO HS [facility] Loperamide HCl (Imodium) 2 mg PO Q8 PRN PRN Reason: Diarrhea Lorazepam (Ativan) 0.5 mg IVP Q6H PRN PRN Reason: Anxiety Last Admin: 09/28/17 11:18 Dose: 0.5 mg Midazolam HCl (Versed Inj) 2 mg IVP ONCE PRN PRN Reason: Agitation/Restlessness Last Admin: 09/28/17 09:00 Dose: 2 mg Ondansetron HCl (Zofran Tab) 4 mg PO Q8 PRN PRN Reason: Nausea/Vomiting Pantoprazole Sodium (Protonix Inj) 40 mg IVP DAILY [facility] Last Admin: 09/28/17 17:23 Dose: 40 mg Tamsulosin HCl (Flomax) 0.4 mg PO DAILY [facility] Last Admin: 09/28/17 11:00 Dose: 0.4 mg Thiamine HCl (Vitamin B1 Tab) 100 mg PO DAILY [facility] Last Admin: 09/28/17 11:00 Dose: 100 mg Tramadol HCl (Ultram) 25 mg PO TID PRN PRN Reason: Pain, moderate (4-7) Last Admin: 09/28/17 17:31 Dose: 25 mg - Labs Labs: 09/28/17 11:51 09/28/17 11:51 PT 18.3 SECONDS (9.7-12.2) H 09/28/17 11:51 INR 1.6 09/28/17 11:51 APTT 43 SECONDS (21-34) H 09/28/17 11:51 - Head Exam Head Exam: ATRAUMATIC - Eye Exam Eye Exam: Normal appearance - ENT Exam ENT Exam: Mucous Membranes Dry - Respiratory Exam Respiratory Exam: NORMAL BREATHING PATTERN - Cardiovascular Exam Cardiovascular Exam: +S1, +S2 - GI/Abdominal Exam GI & Abdominal Exam: Normal Bowel Sounds Assessment and Plan (1) Pancytopenia Assessment & Plan: suspect liver disease HEP C s/p plt and FFP transfusion for urologic procedure Status: Acute (2) Coagulopathy Assessment & Plan: likely liver disease s/p FFP Status: Acute
[2017-09-28] MEDS ORDERED: Tramadol 25 mg PO SCH (18:00)
[2017-09-29] MEDS: Tramadol 25 mg PO PRN ×2 (03:57→17:45)
[2017-09-29] MEDS ORDERED: GENTAMICIN IVPB ONE (06:30)
[2017-09-29] MEDS ORDERED: DEXTROSE 5% IVPB ONE (06:30)
[2017-09-29] MEDS ORDERED: WATER IVPB ONE (06:30)
[2017-09-29] MEDS ORDERED: DEXTROSE IVPB ONE (07:15)
[2017-09-29] MEDS ORDERED: Gentamicin 160 MG in Sodium Chloride 0.9% 100 ML IVPB ONE (07:15)
[2017-09-29] MEDS ORDERED: TAZOBACTAM IVPB ONE (07:15)
[2017-09-29] MEDS ORDERED: PIPERACILLIN IVPB ONE (07:15)
[2017-09-29] MEDS: Sodium Chloride 0.9% 1,000 ML IV SCH ×2 (08:00→17:40)
[2017-09-29] MEDS ORDERED: Piperacill/Tazo 3.375gm in Dex 3.375 GM/50 ML BAG IVPB ONE (08:00)
[2017-09-29 08:12] LABS: BASO % 0.3 % (0.0-2.0); EOS # 0.1 K/uL (0.0-0.7); EOS % 2.9 % (0.0-4.0); HEMATOCRIT 27.2 % (35.0-51.0); INR 1.9; LYMPH # 0.6 K/uL (1.0-4.3); LYMPH % 20.1 % (20.0-40.0); MEAN CELL VOLUME 92.3 fL (80.0-94.0); MEAN CORPUSCULAR HEMOGLOBIN 32.2 pg (27.0-31.0); MEAN CORPUSCULAR HGB CONC 34.9 g/dL (33.0-37.0); MEAN PLATELET VOLUME 11.7 fL (7.2-11.7); MONO # 0.3 K/uL (0.0-0.8); MONO % 9.3 % (0.0-10.0); RED CELL DISTRIBUTION WIDTH 16.6 % (11.5-14.5); WHITE BLOOD COUNT 2.9 K/uL (4.8-10.8)
[2017-09-29 08:37] LABS: BLOOD UREA NITROGEN 9 mg/dL (9-20); CALCIUM 7.5 mg/dl (8.6-10.4); CARBON DIOXIDE 22 mmol/L (22-30); CHLORIDE 106 mmol/L (98-107); GFR AFRICAN-AMERICAN > 60; GLUCOSE,RANDOM 106 mg/dL (75-110); POTASSIUM 3.9 mmol/L (3.6-5.2); SODIUM 131 mmol/L (132-148)
[2017-09-29 10:18] LABS: RBC URINE 52 /hpf (0-3); URINE BACTERIA OCC (<OCC); URINE BILIRUBIN NEGATIVE (NEGATIVE); URINE BLOOD 3+ (NEGATIVE); URINE COLOR Red (YELLOW); URINE GLUCOSE (UA) NORMAL (Normal); URINE KETONE NEGATIVE (NEGATIVE); URINE PROTEIN 2+ mg/dL (NEGATIVE); URINE UROBILINOGEN NORMAL mg/dL (0.2-1.0); WBC URINE 25 /hpf (0-5)
[2017-09-29 10:21] LABS: URINE LEUKOCYTE ESTERASE 2+ Leu/uL (Negative)
[2017-09-29] MEDS: Ferric Sodium Gluconat Complex 125 MG in Sodium Chloride 0.9% 100 ML IVPB SCH (12:20)
[2017-09-29] MEDS: Ciprofloxacin 400mg/200ml D5W 400 MG/200 ML BAG IVPB SCH (13:00)
--- NOTE | 2017-09-29 13:08 | CP.PCM.PN ---
Subjective - Date & Time of Evaluation Date of Evaluation: 09/29/17 Time of Evaluation: 12:00 - Subjective Subjective: Having fevers since last night. Objective - Vital Signs/Intake and Output Vital Signs (last 24 hours): Temp Pulse Resp BP Pulse Ox 101.7 F H 102 H 20 108/65 98 09/29/17 08:00 09/29/17 08:00 09/29/17 08:00 09/29/17 08:00 09/29/17 08:00 Intake and Output: 09/29/17 09/29/17 06:59 18:59 Intake Total 2100 Output Total 1300 Balance 800 - Medications Medications: Current Medications Acetaminophen (Tylenol 325mg Tab) 650 mg PO Q6 PRN PRN Reason: Fever >100.4 F Al Hydrox/Mg Hydrox/Simethicone (Maalox 30 Ml) 30 ml PO TID PRN PRN Reason: Indigestion / Heartburn Last Admin: 09/25/17 00:26 Dose: 30 ml Clonidine HCl (Catapres) 0.1 mg PO Q8 PRN PRN Reason: COWS Score More or Equal to 5 Folic Acid (Folic Acid) 1 mg PO DAILY [facility] Last Admin: 09/29/17 11:00 Dose: 1 mg Gabapentin (Neurontin) 100 mg PO TID [facility] Last Admin: 09/29/17 10:57 Dose: 100 mg Ciprofloxacin (Cipro 400mg/200ml Dsw) 400 mg in 200 mls @ 133 mls/hr IVPB Q12H [facility] Last Admin: 09/28/17 23:55 Dose: 133 mls/hr Ferric Sodium Gluconate Complex 125 mg/ Sodium Chloride 110 mls @ 110 mls/hr IVPB DAILY [facility] Stop: 10/03/17 12:01 Last Admin: 09/29/17 12:20 Dose: 110 mls/hr Sodium Chloride (Sodium Chloride 0.9%) 1,000 mls @ 100 mls/hr IV .Q10H [facility] Last Admin: 09/29/17 08:00 Dose: Not Given Lactulose (Enulose) 20 gm PO HS [facility] Last Admin: 09/28/17 21:25 Dose: Not Given Loperamide HCl (Imodium) 2 mg PO Q8 PRN PRN Reason: Diarrhea Lorazepam (Ativan) 0.5 mg IVP Q6H PRN PRN Reason: Anxiety Last Admin: 09/28/17 11:18 Dose: 0.5 mg Midazolam HCl (Versed Inj) 2 mg IVP ONCE PRN PRN Reason: Agitation/Restlessness Last Admin: 09/28/17 09:00 Dose: 2 mg Ondansetron HCl (Zofran Tab) 4 mg PO Q8 PRN PRN Reason: Nausea/Vomiting Pantoprazole Sodium (Protonix Inj) 40 mg IVP DAILY [facility] Last Admin: 09/29/17 11:00 Dose: 40 mg Tamsulosin HCl (Flomax) 0.4 mg PO DAILY [facility] Last Admin: 09/29/17 10:57 Dose: 0.4 mg Thiamine HCl (Vitamin B1 Tab) 100 mg PO DAILY [facility] Last Admin: 09/29/17 10:57 Dose: 100 mg Tramadol HCl (Ultram) 25 mg PO TID PRN PRN Reason: Pain, moderate (4-7) Last Admin: 09/29/17 03:57 Dose: 25 mg - Labs Labs: 09/29/17 07:54 09/29/17 07:54 PT 22.3 SECONDS (9.7-12.2) H 09/29/17 07:54 INR 1.9 09/29/17 07:54 APTT 43 SECONDS (21-34) H 09/28/17 11:51 - Head Exam Head Exam: ATRAUMATIC - Eye Exam Eye Exam: Normal appearance - Respiratory Exam Respiratory Exam: NORMAL BREATHING PATTERN - Cardiovascular Exam Cardiovascular Exam: +S1, +S2 - GI/Abdominal Exam GI & Abdominal Exam: Normal Bowel Sounds Assessment and Plan (1) Pancytopenia Assessment & Plan: suspect liver disease s/p FFP and plt transfusion Status: Acute (2) Coagulopathy Assessment & Plan: s/p FFP Status: Acute
--- NOTE | 2017-09-29 13:19 | CP.PCM.PN ---
Subjective - Date & Time of Evaluation Date of Evaluation: 09/29/17 Time of Evaluation: 13:17 - Subjective Subjective: NO ACTIVE BLEEDING S/P URETRAL STENT INC. TEMP SEC TO STENT PLACEMENT IV CIPRO CULTURES NEG SO FAR IF Objective - Vital Signs/Intake and Output Vital Signs (last 24 hours): Temp Pulse Resp BP Pulse Ox 101.7 F H 102 H 20 108/65 98 09/29/17 08:00 09/29/17 08:00 09/29/17 08:00 09/29/17 08:00 09/29/17 08:00 Intake and Output: 09/29/17 09/29/17 11:59 23:59 Intake Total 1100 Output Total 1000 Balance 100 - Medications Medications: Current Medications Acetaminophen (Tylenol 325mg Tab) 650 mg PO Q6 PRN PRN Reason: Fever >100.4 F Al Hydrox/Mg Hydrox/Simethicone (Maalox 30 Ml) 30 ml PO TID PRN PRN Reason: Indigestion / Heartburn Last Admin: 09/25/17 00:26 Dose: 30 ml Clonidine HCl (Catapres) 0.1 mg PO Q8 PRN PRN Reason: COWS Score More or Equal to 5 Folic Acid (Folic Acid) 1 mg PO DAILY [facility] Last Admin: 09/29/17 11:00 Dose: 1 mg Gabapentin (Neurontin) 100 mg PO TID [facility] Last Admin: 09/29/17 10:57 Dose: 100 mg Ciprofloxacin (Cipro 400mg/200ml Dsw) 400 mg in 200 mls @ 133 mls/hr IVPB Q12H [facility] Last Admin: 09/28/17 23:55 Dose: 133 mls/hr Ferric Sodium Gluconate Complex 125 mg/ Sodium Chloride 110 mls @ 110 mls/hr IVPB DAILY [facility] Stop: 10/03/17 12:01 Last Admin: 09/29/17 12:20 Dose: 110 mls/hr Sodium Chloride (Sodium Chloride 0.9%) 1,000 mls @ 100 mls/hr IV .Q10H [facility] Last Admin: 09/29/17 08:00 Dose: Not Given Lactulose (Enulose) 20 gm PO HS [facility] Last Admin: 09/28/17 21:25 Dose: Not Given Loperamide HCl (Imodium) 2 mg PO Q8 PRN PRN Reason: Diarrhea Lorazepam (Ativan) 0.5 mg IVP Q6H PRN PRN Reason: Anxiety Last Admin: 09/28/17 11:18 Dose: 0.5 mg Midazolam HCl (Versed Inj) 2 mg IVP ONCE PRN PRN Reason: Agitation/Restlessness Last Admin: 09/28/17 09:00 Dose: 2 mg Ondansetron HCl (Zofran Tab) 4 mg PO Q8 PRN PRN Reason: Nausea/Vomiting Pantoprazole Sodium (Protonix Inj) 40 mg IVP DAILY [facility] Last Admin: 09/29/17 11:00 Dose: 40 mg Tamsulosin HCl (Flomax) 0.4 mg PO DAILY [facility] Last Admin: 09/29/17 10:57 Dose: 0.4 mg Thiamine HCl (Vitamin B1 Tab) 100 mg PO DAILY [facility] Last Admin: 09/29/17 10:57 Dose: 100 mg Tramadol HCl (Ultram) 25 mg PO TID PRN PRN Reason: Pain, moderate (4-7) Last Admin: 09/29/17 03:57 Dose: 25 mg - Labs Labs: 09/29/17 07:54 09/29/17 07:54 PT 22.3 SECONDS (9.7-12.2) H 09/29/17 07:54 INR 1.9 09/29/17 07:54 APTT 43 SECONDS (21-34) H 09/28/17 11:51 Assessment and Plan (1) Renal stone Status: Acute (2) UTI (urinary tract infection) Status: Acute (3) Ureteral stent retained Status: Acute (4) Abdominal pain Status: Acute
--- NOTE | 2017-09-29 15:38 | RAD ---
HISTORY: with elevated temp. COMPARISON: Chest x-ray performed 09/21/17 TECHNIQUE: Chest PA and lateral FINDINGS: LUNGS: Biapical pleural thickening. Diffuse increased interstitial markings. Bilateral hilar prominence. No focal consolidation. Please note that chest x-ray has limited sensitivity for the detection of pulmonary masses. PLEURA: No significant pleural effusion identified. No definite pneumothorax . CARDIOVASCULAR: Heart size appears top normal. OSSEOUS STRUCTURES: No acute osseous abnormality identified. VISUALIZED UPPER ABDOMEN: Unremarkable. OTHER FINDINGS: None. IMPRESSION: Biapical pleural thickening. Diffuse increased interstitial markings. Bilateral hilar prominence. No focal consolidation.
--- NOTE | 2017-09-29 20:08 | CP.PCM.CON ---
History of Present Illness - History of Present Illness History of Present Illness: INFECTIOUS DISEASE CONSULT; HPI; 47 year old male with a history of polysubstance abuse, kidney stones, ?liver cirrhosis, admitted with abdominal/flank pain, for urologic surgery, found to be pancytopenic and coagulopathic. The patient noted to have a ureteral stent being placed for kidney stones in the past. He was supposed to have this removed at some point but did not follow up. He was admitted on 09/21/17 with flank pain and abdominal discomfort. He feels a lot of his symptoms may be related to heroine withdrawal. The patient was told in the past he had low blood, as well as HEPATITIS C.DENIES HISTORY OF HIV. PATIENT CONTINUES TO DRINK AND PRESENTLY WAS IN A DETOX-PROGRAM. Patient had his cystoscopy/urethroscopy, and removal and insertion of left ureteral stent on 09/29/17. PATIENT PRESENTLY ON iv cIPRO. pATIENT HAS BEEN SPIKING TEMPERATURE POSTPROCEDURE UP TO 101.2. pATIENT WAS GIVEN A DOSE OF zOSYN 3.375 AND GENTAMICIN 160 MG ONE DOSE BY UROLOGIST. INFECTIOUS DISEASE CONSULTATION REQUESTED FOR RECENT ONSET OF FEVER POSTPROCEDURE BY pmd. Past medical history: polysubstance abuse, kidney stones, ?liver disease- HEPATITIS c. Past surgical history: Denies Family history: Denies hematologic and oncologic problems Social history: Smokes 2-3 cigarettes daily, drinks 3-4 beers daily, uses heroine Allergies: NKA Review of systems: All remaining review of systems including HEENT, cardiovascular, respiratory, gastrointestinal, genitourinary, musculoskeletal, dermatologic, neurologic, and psychiatric are negative unless mentioned in the HPI. Past Patient History - Infectious Disease Hx of Infectious Diseases: None - Past Medical History & Family History Past Medical History?: Yes - Past Social History Smoking Status: Light Smoker < 10 Cigarettes Daily - CARDIAC Hx Hypertension: No - PULMONARY Hx Asthma: Yes - NEUROLOGICAL Hx Seizures: No - HEENT Hx HEENT Problems: No - RENAL Hx Chronic Kidney Disease: No Hx Kidney Stones: Yes - ENDOCRINE/METABOLIC Hx Endocrine Disorders: No - HEMATOLOGICAL/ONCOLOGICAL Hx Hepatitis C: Yes Hx Human Immunodeficiency Virus (HIV): No - INTEGUMENTARY Hx Dermatological Problems: No - MUSCULOSKELETAL/RHEUMATOLOGICAL Hx Arthritis: Yes (back) - GASTROINTESTINAL Other/Comment: right groin hernia - GENITOURINARY/GYNECOLOGICAL Hx Sexually Transmitted Disorders: No - PSYCHIATRIC Hx Substance Use: Yes (Heroin/ Cocaine) - SURGICAL HISTORY Hx Surgeries: Yes Hx Coronary Stent: No Other/Comment: left urethral stent - ANESTHESIA Hx Anesthesia: Yes Hx Anesthesia Reactions: No Hx Malignant Hyperthermia: No Has any member of the family had a problem w/ anesthesia?: No Meds Allergies/Adverse Reactions: Allergies Allergy/AdvReac Type Severity Reaction Status Date / Time No Known Allergies Allergy Verified 09/21/17 18:10 - Medications Medications: Current Medications Acetaminophen (Tylenol 325mg Tab) 650 mg PO Q6 PRN PRN Reason: Fever >100.4 F Al Hydrox/Mg Hydrox/Simethicone (Maalox 30 Ml) 30 ml PO TID PRN PRN Reason: Indigestion / Heartburn Last Admin: 09/25/17 00:26 Dose: 30 ml Clonidine HCl (Catapres) 0.1 mg PO Q8 PRN PRN Reason: COWS Score More or Equal to 5 Docusate Sodium (Colace) 100 mg PO BID [facility] Last Admin: 09/29/17 17:40 Dose: 100 mg Folic Acid (Folic Acid) 1 mg PO DAILY [facility] Last Admin: 09/29/17 11:00 Dose: 1 mg Gabapentin (Neurontin) 100 mg PO TID [facility] Last Admin: 09/29/17 17:40 Dose: 100 mg Ferric Sodium Gluconate Complex 125 mg/ Sodium Chloride 110 mls @ 110 mls/hr IVPB DAILY [facility] Stop: 10/03/17 12:01 Last Admin: 09/29/17 12:20 Dose: 110 mls/hr Sodium Chloride (Sodium Chloride 0.9%) 1,000 mls @ 100 mls/hr IV .Q10H [facility] Last Admin: 09/29/17 17:40 Dose: 100 mls/hr Cefepime HCl 1 gm/ Dextrose 50 mls @ 100 mls/hr IVPB Q12H [facility] Lactulose (Enulose) 20 gm PO HS [facility] Last Admin: 09/28/17 21:25 Dose: Not Given Loperamide HCl (Imodium) 2 mg PO Q8 PRN PRN Reason: Diarrhea Lorazepam (Ativan) 0.5 mg IVP Q6H PRN PRN Reason: Anxiety Last Admin: 09/28/17 11:18 Dose: 0.5 mg Midazolam HCl (Versed Inj) 2 mg IVP ONCE PRN PRN Reason: Agitation/Restlessness Last Admin: 09/28/17 09:00 Dose: 2 mg Ondansetron HCl (Zofran Tab) 4 mg PO Q8 PRN PRN Reason: Nausea/Vomiting Pantoprazole Sodium (Protonix Inj) 40 mg IVP DAILY [facility] Last Admin: 09/29/17 11:00 Dose: 40 mg Tamsulosin HCl (Flomax) 0.4 mg PO DAILY [facility] Last Admin: 09/29/17 10:57 Dose: 0.4 mg Thiamine HCl (Vitamin B1 Tab) 100 mg PO DAILY [facility] Last Admin: 09/29/17 10:57 Dose: 100 mg Tramadol HCl (Ultram) 25 mg PO TID PRN PRN Reason: Pain, moderate (4-7) Last Admin: 09/29/17 17:45 Dose: 25 mg Physical Exam - Constitutional Appears: No Acute Distress - Head Exam Head Exam: NORMAL INSPECTION - Eye Exam Eye Exam: EOMI, PERRL - ENT Exam ENT Exam: Normal Oropharynx - Neck Exam Neck exam: Positive for: Normal Inspection - Respiratory Exam Respiratory Exam: Clear to Auscultation Bilateral - Cardiovascular Exam Cardiovascular Exam: Tachycardia, REGULAR RHYTHM, +S1, +S2. absent: Systolic Murmur - GI/Abdominal Exam GI & Abdominal Exam: Normal Bowel Sounds, Soft. absent: Tenderness - Extremities Exam Extremities exam: Positive for: pedal pulses present. Negative for: calf tenderness, pedal edema - Back Exam Back exam: CVA tenderness (L) - Neurological Exam Neurological exam: Alert, CN II-XII Intact, Oriented x3 - Psychiatric Exam Psychiatric exam: Depressed, Flat Affect - Skin Skin Exam: Dry, Normal Color, Warm Results - Vital Signs Recent Vital Signs: Last Vital Signs Temp 99 F 09/29/17 15:00 Pulse 100 H 09/29/17 15:00 Resp 20 09/29/17 15:00 BP 118/76 09/29/17 15:00 Pulse Ox 99 09/29/17 15:00 - Labs Result Diagrams: 09/29/17 07:54 09/29/17 07:54 Labs: Laboratory Results - last 24 hr 09/29/17 09/29/17 09/29/17 07:54 07:54 07:54 WBC 2.9 L RBC 2.95 L Hgb 9.5 L Hct 27.2 L MCV 92.3 MCH 32.2 H MCHC 34.9 RDW 16.6 H Plt Count 35 L MPV 11.7 Neut % (Auto) 67.4 Lymph % (Auto) 20.1 [place] % (Auto) 9.3 Eos % (Auto) 2.9 Baso % (Auto) 0.3 Neut # 1.9 Lymph # 0.6 L [place] # 0.3 Eos # 0.1 Baso # 0.0 PT 22.3 H INR 1.9 Sodium 131 L Potassium 3.9 Chloride 106 Carbon Dioxide 22 Anion Gap 6 L BUN 9 Creatinine 0.6 L Est GFR ( Amer) > 60 Est GFR (Non-Af Amer) > 60 Random Glucose 106 Calcium 7.5 L Urine Color Urine Clarity Urine pH Ur Specific [place] Urine Protein Urine Glucose (UA) Urine Ketones Urine Blood Urine Nitrate Urine Bilirubin Urine Urobilinogen Ur Leukocyte Esterase Urine WBC (Auto) Urine RBC (Auto) Ur Squamous Epith Cells Urine Bacteria 09/29/17 09:58 WBC RBC Hgb Hct MCV MCH MCHC RDW Plt Count MPV Neut % (Auto) Lymph % (Auto) [place] % (Auto) Eos % (Auto) Baso % (Auto) Neut # Lymph # [place] # Eos # Baso # PT INR Sodium Potassium Chloride Carbon Dioxide Anion Gap BUN Creatinine Est GFR ( Amer) Est GFR (Non-Af Amer) Random Glucose Calcium Urine Color Red Urine Clarity Hazy Urine pH 7.0 Ur Specific [place] 1.003 Urine Protein 2+ H Urine Glucose (UA) Normal Urine Ketones Negative Urine Blood 3+ H Urine Nitrate Negative Urine Bilirubin Negative Urine Urobilinogen Normal Ur Leukocyte Esterase 2+ H Urine WBC (Auto) 25 H Urine RBC (Auto) 52 H Ur Squamous Epith Cells < 1 Urine Bacteria Occ H - Imaging and Cardiology CT scan - abdomenand pelvis without by mouth or IV contrast Status: Report reviewed by me Assessment & Plan (1) Abdominal pain Status: Acute (2) Ureteral stent retained Assessment and Plan: S/P CYSTOSCOPY/URETHROSCOPY AND REMOVAL AND INSERTION OF LEFT URETERAL STENT . POSTOPERATIVE FEVER- APPROPRIATE CULTURES PATIENT GOT 1 DOSE OF GENTAMICIN 160 MG AND 1 DOSE OF zOSYN 3.375 G PER . WILL INITIATE CEFEPIME 1 G EVERY 12 HOURLY FOR NOW WHILE AWAITING CULTURES. . FOLLOW-UP CULTURES TO ADJUST ANTIBIOTICS. Status: Acute (3) Pancytopenia Assessment and Plan: PATIENT HAS PANCYTOPENIA MOST LIKELY SECONDARY TO HIS LIVER DISEASE/AND ALCOHOL ABUSE. HEMATOLOGY ON BOARD. MONITOR CLOSELY h&h AND THROMBOCYTOPENIA Status: Acute (4) Renal stone Status: Acute (5) Alcohol abuse Assessment and Plan: PSYCHIATRY ON THE CASE. Status: Acute (6) Heroin abuse Status: Acute (7) Hx of hepatitis C Assessment and Plan: PATIENT INSTRUCTED TO STOP ALCOHOL ABUSE ALSO TO STOP DRUG ABUSE. PATIENT INSTRUCTED TO FOLLOW-UP ON HIS HEPATITIS C ONCE IMPROVED. Status: Acute
[2017-09-30] MEDS: Sodium Chloride 0.9% 1,000 ML IV SCH (03:40)
[2017-09-30 07:11] LABS: BASO % 0.5 % (0.0-2.0); EOS # 0.1 K/uL (0.0-0.7); LYMPH # 0.6 K/uL (1.0-4.3); MONO # 0.3 K/uL (0.0-0.8)
[2017-09-30 07:20] LABS: EOS % 4.6 % (0.0-4.0); HEMATOCRIT 28.6 % (35.0-51.0); LYMPH % 27.6 % (20.0-40.0); MEAN CELL VOLUME 92.1 fL (80.0-94.0); MEAN CORPUSCULAR HEMOGLOBIN 32.9 pg (27.0-31.0); MEAN CORPUSCULAR HGB CONC 35.7 g/dL (33.0-37.0); MEAN PLATELET VOLUME 11.3 fL (7.2-11.7); MONO % 13.5 % (0.0-10.0); NRBC % 0.3 % (0.0-2.0); RED CELL DISTRIBUTION WIDTH 16.9 % (11.5-14.5); WHITE BLOOD COUNT 2.3 K/uL (4.8-10.8)
[2017-09-30 07:38] LABS: ALB/GLOB RATIO 0.6 (1.0-2.1); ALKALINE PHOSPHATASE 84 U/L (38-126); ALT/SGPT 60 U/L (21-72); AST/SGOT 101 U/L (17-59); BILIRUBIN,DIRECT 1.2 mg/dL (0.0-0.4); BILIRUBIN,TOTAL 2.2 mg/dL (0.2-1.3); BLOOD UREA NITROGEN 7 mg/dL (9-20); CALCIUM 7.7 mg/dl (8.6-10.4); CARBON DIOXIDE 24 mmol/L (22-30); CHLORIDE 113 mmol/L (98-107); GFR AFRICAN-AMERICAN > 60; GLUCOSE,RANDOM 101 mg/dL (75-110); SODIUM 136 mmol/L (132-148)
[2017-09-30] MEDS: Ferric Sodium Gluconat Complex 125 MG in Sodium Chloride 0.9% 100 ML IVPB SCH (12:43)
--- NOTE | 2017-09-30 13:40 | CP.PCM.PN ---
Subjective - Date & Time of Evaluation Date of Evaluation: 09/30/17 Time of Evaluation: 13:39 - Subjective Subjective: TEMP DOWN ID ON BOARD CONT IV AB BC NEG SO FAR Objective - Vital Signs/Intake and Output Vital Signs (last 24 hours): Temp Pulse Resp BP Pulse Ox 99.1 F 84 20 133/22 L 98 09/30/17 07:27 09/30/17 12:33 09/30/17 07:27 09/30/17 07:27 09/30/17 12:33 Intake and Output: 09/30/17 09/30/17 11:59 23:59 Intake Total 1800 Output Total 2049 Balance -250 - Medications Medications: Current Medications Acetaminophen (Tylenol 325mg Tab) 650 mg PO Q6 PRN PRN Reason: Fever >100.4 F Last Admin: 09/29/17 23:43 Dose: 650 mg Al Hydrox/Mg Hydrox/Simethicone (Maalox 30 Ml) 30 ml PO TID PRN PRN Reason: Indigestion / Heartburn Last Admin: 09/25/17 00:26 Dose: 30 ml Clonidine HCl (Catapres) 0.1 mg PO Q8 PRN PRN Reason: COWS Score More or Equal to 5 Docusate Sodium (Colace) 100 mg PO BID [facility] Last Admin: 09/30/17 11:35 Dose: 100 mg Folic Acid (Folic Acid) 1 mg PO DAILY [facility] Last Admin: 09/30/17 11:35 Dose: 1 mg Gabapentin (Neurontin) 100 mg PO TID [facility] Last Admin: 09/30/17 11:35 Dose: 100 mg Ferric Sodium Gluconate Complex 125 mg/ Sodium Chloride 110 mls @ 110 mls/hr IVPB DAILY [facility] Stop: 10/03/17 12:01 Last Admin: 09/30/17 12:43 Dose: 110 mls/hr Sodium Chloride (Sodium Chloride 0.9%) 1,000 mls @ 100 mls/hr IV .Q10H [facility] Last Admin: 09/30/17 03:40 Dose: 100 mls/hr Cefepime HCl 1 gm/ Dextrose 50 mls @ 100 mls/hr IVPB Q12H [facility] Last Admin: 09/30/17 11:36 Dose: 100 mls/hr Lactulose (Enulose) 20 gm PO HS [facility] Last Admin: 09/29/17 21:56 Dose: 20 gm Loperamide HCl (Imodium) 2 mg PO Q8 PRN PRN Reason: Diarrhea Lorazepam (Ativan) 0.5 mg IVP Q6H PRN PRN Reason: Anxiety Last Admin: 09/28/17 11:18 Dose: 0.5 mg Midazolam HCl (Versed Inj) 2 mg IVP ONCE PRN PRN Reason: Agitation/Restlessness Last Admin: 09/28/17 09:00 Dose: 2 mg Ondansetron HCl (Zofran Tab) 4 mg PO Q8 PRN PRN Reason: Nausea/Vomiting Pantoprazole Sodium (Protonix Inj) 40 mg IVP DAILY [facility] Last Admin: 09/30/17 11:36 Dose: 40 mg Tamsulosin HCl (Flomax) 0.4 mg PO DAILY [facility] Last Admin: 09/30/17 11:35 Dose: 0.4 mg Thiamine HCl (Vitamin B1 Tab) 100 mg PO DAILY [facility] Last Admin: 09/30/17 11:35 Dose: 100 mg Tramadol HCl (Ultram) 25 mg PO TID PRN PRN Reason: Pain, moderate (4-7) Last Admin: 09/29/17 17:45 Dose: 25 mg - Labs Labs: 09/30/17 07:02 09/30/17 07:02 PT 22.3 SECONDS (9.7-12.2) H 09/29/17 07:54 INR 1.9 09/29/17 07:54 APTT 43 SECONDS (21-34) H 09/28/17 11:51 Assessment and Plan (1) Renal stone Status: Acute (2) UTI (urinary tract infection) Status: Acute (3) Ureteral stent retained Status: Acute (4) Abdominal pain Status: Acute
--- NOTE | 2017-09-30 17:03 | CP.PCM.PN ---
Subjective - Date & Time of Evaluation Date of Evaluation: 09/30/17 Time of Evaluation: 14:00 - Subjective Subjective: Feeling better no fever Objective - Vital Signs/Intake and Output Vital Signs (last 24 hours): Temp Pulse Resp BP Pulse Ox 98.6 F 101 H 20 125/75 100 09/30/17 15:00 09/30/17 15:00 09/30/17 15:00 09/30/17 15:00 09/30/17 15:00 Intake and Output: 09/30/17 09/30/17 06:59 18:59 Intake Total 2850 1300 Output Total 2050 1500 Balance 800 -200 - Medications Medications: Current Medications Acetaminophen (Tylenol 325mg Tab) 650 mg PO Q6 PRN PRN Reason: Fever >100.4 F Last Admin: 09/29/17 23:43 Dose: 650 mg Al Hydrox/Mg Hydrox/Simethicone (Maalox 30 Ml) 30 ml PO TID PRN PRN Reason: Indigestion / Heartburn Last Admin: 09/25/17 00:26 Dose: 30 ml Clonidine HCl (Catapres) 0.1 mg PO Q8 PRN PRN Reason: COWS Score More or Equal to 5 Docusate Sodium (Colace) 100 mg PO BID [facility] Last Admin: 09/30/17 11:35 Dose: 100 mg Folic Acid (Folic Acid) 1 mg PO DAILY [facility] Last Admin: 09/30/17 11:35 Dose: 1 mg Gabapentin (Neurontin) 100 mg PO TID [facility] Last Admin: 09/30/17 11:35 Dose: 100 mg Ferric Sodium Gluconate Complex 125 mg/ Sodium Chloride 110 mls @ 110 mls/hr IVPB DAILY [facility] Stop: 10/03/17 12:01 Last Admin: 09/30/17 12:43 Dose: 110 mls/hr Sodium Chloride (Sodium Chloride 0.9%) 1,000 mls @ 100 mls/hr IV .Q10H [facility] Last Admin: 09/30/17 03:40 Dose: 100 mls/hr Cefepime HCl 1 gm/ Dextrose 50 mls @ 100 mls/hr IVPB Q12H [facility] Last Admin: 09/30/17 11:36 Dose: 100 mls/hr Lactulose (Enulose) 20 gm PO HS [facility] Last Admin: 09/29/17 21:56 Dose: 20 gm Loperamide HCl (Imodium) 2 mg PO Q8 PRN PRN Reason: Diarrhea Lorazepam (Ativan) 0.5 mg IVP Q6H PRN PRN Reason: Anxiety Last Admin: 09/28/17 11:18 Dose: 0.5 mg Midazolam HCl (Versed Inj) 2 mg IVP ONCE PRN PRN Reason: Agitation/Restlessness Last Admin: 09/28/17 09:00 Dose: 2 mg Ondansetron HCl (Zofran Tab) 4 mg PO Q8 PRN PRN Reason: Nausea/Vomiting Pantoprazole Sodium (Protonix Inj) 40 mg IVP DAILY [facility] Last Admin: 09/30/17 11:36 Dose: 40 mg Tamsulosin HCl (Flomax) 0.4 mg PO DAILY [facility] Last Admin: 09/30/17 11:35 Dose: 0.4 mg Thiamine HCl (Vitamin B1 Tab) 100 mg PO DAILY [facility] Last Admin: 09/30/17 11:35 Dose: 100 mg Tramadol HCl (Ultram) 25 mg PO TID PRN PRN Reason: Pain, moderate (4-7) Last Admin: 09/29/17 17:45 Dose: 25 mg - Labs Labs: 09/30/17 07:02 09/30/17 07:02 PT 22.3 SECONDS (9.7-12.2) H 09/29/17 07:54 INR 1.9 09/29/17 07:54 APTT 43 SECONDS (21-34) H 09/28/17 11:51 - Head Exam Head Exam: ATRAUMATIC - Eye Exam Eye Exam: Normal appearance - ENT Exam ENT Exam: Mucous Membranes Dry - Respiratory Exam Respiratory Exam: NORMAL BREATHING PATTERN - Cardiovascular Exam Cardiovascular Exam: +S1, +S2 - GI/Abdominal Exam GI & Abdominal Exam: Normal Bowel Sounds - Extremities Exam Extremities Exam: Normal Inspection Assessment and Plan (1) Pancytopenia Assessment & Plan: liver disease and hep C Status: Acute (2) Coagulopathy Assessment & Plan: liver disease Status: Acute
--- NOTE | 2017-09-30 21:13 | CP.PCM.PN ---
Subjective - Date & Time of Evaluation Date of Evaluation: 09/30/17 Time of Evaluation: 21:13 - Subjective Subjective: AFEBRILE, FEELING BETTER. OFFERS NO NEW COMPLAINTS. Objective - Vital Signs/Intake and Output Vital Signs (last 24 hours): Temp Pulse Resp BP Pulse Ox 98.6 F 101 H 20 125/75 100 09/30/17 15:00 09/30/17 15:00 09/30/17 15:00 09/30/17 15:00 09/30/17 15:00 Intake and Output: 09/30/17 10/01/17 18:59 06:59 Intake Total 1300 Output Total 1500 Balance -200 - Medications Medications: Current Medications Acetaminophen (Tylenol 325mg Tab) 650 mg PO Q6 PRN PRN Reason: Fever >100.4 F Last Admin: 09/29/17 23:43 Dose: 650 mg Al Hydrox/Mg Hydrox/Simethicone (Maalox 30 Ml) 30 ml PO TID PRN PRN Reason: Indigestion / Heartburn Last Admin: 09/25/17 00:26 Dose: 30 ml Clonidine HCl (Catapres) 0.1 mg PO Q8 PRN PRN Reason: COWS Score More or Equal to 5 Docusate Sodium (Colace) 100 mg PO BID [facility] Last Admin: 09/30/17 17:21 Dose: 100 mg Folic Acid (Folic Acid) 1 mg PO DAILY [facility] Last Admin: 09/30/17 11:35 Dose: 1 mg Gabapentin (Neurontin) 100 mg PO TID [facility] Last Admin: 09/30/17 17:22 Dose: 100 mg Ferric Sodium Gluconate Complex 125 mg/ Sodium Chloride 110 mls @ 110 mls/hr IVPB DAILY [facility] Stop: 10/03/17 12:01 Last Admin: 09/30/17 12:43 Dose: 110 mls/hr Sodium Chloride (Sodium Chloride 0.9%) 1,000 mls @ 100 mls/hr IV .Q10H [facility] Last Admin: 09/30/17 03:40 Dose: 100 mls/hr Cefepime HCl 1 gm/ Dextrose 50 mls @ 100 mls/hr IVPB Q12H [facility] Last Admin: 09/30/17 11:36 Dose: 100 mls/hr Lactulose (Enulose) 20 gm PO HS [facility] Last Admin: 09/29/17 21:56 Dose: 20 gm Loperamide HCl (Imodium) 2 mg PO Q8 PRN PRN Reason: Diarrhea Lorazepam (Ativan) 0.5 mg IVP Q6H PRN PRN Reason: Anxiety Last Admin: 09/28/17 11:18 Dose: 0.5 mg Midazolam HCl (Versed Inj) 2 mg IVP ONCE PRN PRN Reason: Agitation/Restlessness Last Admin: 09/28/17 09:00 Dose: 2 mg Ondansetron HCl (Zofran Tab) 4 mg PO Q8 PRN PRN Reason: Nausea/Vomiting Pantoprazole Sodium (Protonix Inj) 40 mg IVP DAILY [facility] Last Admin: 09/30/17 11:36 Dose: 40 mg Tamsulosin HCl (Flomax) 0.4 mg PO DAILY [facility] Last Admin: 09/30/17 11:35 Dose: 0.4 mg Thiamine HCl (Vitamin B1 Tab) 100 mg PO DAILY [facility] Last Admin: 09/30/17 11:35 Dose: 100 mg Tramadol HCl (Ultram) 25 mg PO TID PRN PRN Reason: Pain, moderate (4-7) Last Admin: 09/29/17 17:45 Dose: 25 mg - Labs Labs: 09/30/17 07:02 09/30/17 07:02 PT 22.3 SECONDS (9.7-12.2) H 09/29/17 07:54 INR 1.9 09/29/17 07:54 APTT 43 SECONDS (21-34) H 09/28/17 11:51 - Constitutional Appears: No Acute Distress - Head Exam Head Exam: NORMAL INSPECTION - Eye Exam Eye Exam: EOMI, PERRL - ENT Exam ENT Exam: Normal Oropharynx - Neck Exam Neck Exam: Normal Inspection - Respiratory Exam Respiratory Exam: Clear to Ausculation Bilateral - Cardiovascular Exam Cardiovascular Exam: Tachycardia, REGULAR RHYTHM, +S1, +S2 - GI/Abdominal Exam GI & Abdominal Exam: Soft, Normal Bowel Sounds. absent: Tenderness - Extremities Exam Extremities Exam: Normal Capillary Refill. absent: Calf Tenderness, Pedal Edema - Back Exam Back Exam: absent: CVA tenderness (L), CVA tenderness (R) - Neurological Exam Neurological Exam: Awake, Oriented x3 - Psychiatric Exam Psychiatric exam: Normal Mood - Skin Skin Exam: Normal Color, Warm Assessment and Plan (1) Abdominal pain Assessment & Plan: CONTINUE IV CEFEPIME 1 G EVERY 12 HOURLY FOR NOW WHILE AWAITING CULTURES. 09/29. FOLLOW-UP CULTURES TO ADJUST ANTIBIOTICS. Status: Acute Status: Acute (2) Ureteral stent retained Assessment & Plan: DENIES ANY HEMATURIA. S/P CYSTOSCOPY/URETHROSCOPY AND REMOVAL AND INSERTION OF LEFT URETERAL STENT . Status: Acute (3) Pancytopenia Status: Acute (4) Renal stone Assessment & Plan: STONE-SENT FOR PATHOLOGY PENDING Status: Acute (5) Alcohol abuse Assessment & Plan: LFTS IMPROVING. Status: Acute (6) Heroin abuse Status: Acute (7) Hx of hepatitis C Status: Acute
[2017-10-01 00:45] LABS: STONE SOURCE Left Kidney
[2017-10-01] MEDS: Tramadol 25 mg PO PRN ×2 (02:14→10:07)
[2017-10-01] MEDS: Sodium Chloride 0.9% 1,000 ML IV SCH ×5 (02:38→23:32)
--- NOTE | 2017-10-01 08:42 | PCM.URO ---
Urology Progress Note - Subjective Abdominal Pain: Yes - Objective Lab Studies: Reviewed (urolithiasis) Lab Results Last 24 Hours: Laboratory Results - last 24 hr 09/28/17 09/30/17 09/30/17 10:13 07:02 07:02 Differential Comment Stone Source Left kidney Stone Weight 0.1910 Stone Composition See below Stone Composition 2 TNP Stone Nidus Not observed HIV 1&2 Antibody Screen Negative Intake & Output: Intake & Output 09/30/17 10/01/17 10/01/17 18:59 06:59 18:59 Intake Total 1300 1800 900 Output Total 1500 1850 Balance -200 -50 900 Intake: Intake, IV Amount 800 1500 800 Left Forearm 800 Left Hand 800 700 800 Oral 500 300 100 Output: Urine 1500 1850 Urethral (Shaffer) 1500 1850 Other: # Voids Urethral (Shaffer) 400 # Bowel Movements 1 3 1 Vital Signs: Vital Signs - 24 hr 09/30/17 09/30/17 09/30/17 12:33 15:00 23:20 Temperature 98.6 F 99 F Pulse Rate 84 101 H 95 H Respiratory 20 20 Rate Blood Pressure 125/75 113/80 O2 Sat by Pulse 98 100 99 Oximetry 10/01/17 10/01/17 06:43 08:22 Temperature 98.2 F 97.9 F Pulse Rate 89 79 Respiratory 20 20 Rate Blood Pressure 135/81 126/75 O2 Sat by Pulse 98 99 Oximetry
[2017-10-01] MEDS: Ferric Sodium Gluconat Complex 125 MG in Sodium Chloride 0.9% 100 ML IVPB SCH (10:07)
--- NOTE | 2017-10-01 11:03 | RAD ---
HISTORY: urolithiasis COMPARISON: CT abdomen and pelvis from 09/21/2017 and plain radiographs from 09/28/2017. FINDINGS: There is a 17 x 7 mm calcification overlying the left L3 transverse process. There is an additional 7 mm calcification overlying the left renal silhouette. There is interval removal of the left ureteral stent. There are no calcifications overlying right renal silhouette. BOWEL: Normal. No obstruction. No free air. BONES: Normal. OTHER FINDINGS: None. IMPRESSION: 1. 17 x 7 mm presumable left mid ureteral stone. 2. Suspect 7 mm left renal stone.
--- NOTE | 2017-10-01 12:28 | CP.PCM.PN ---
Subjective - Date & Time of Evaluation Date of Evaluation: 10/01/17 Time of Evaluation: 12:00 - Subjective Subjective: Feeling better, hung removed Objective - Vital Signs/Intake and Output Vital Signs (last 24 hours): Temp Pulse Resp BP Pulse Ox 97.9 F 79 20 126/75 99 10/01/17 08:22 10/01/17 08:22 10/01/17 08:22 10/01/17 08:22 10/01/17 08:22 Intake and Output: 10/01/17 10/01/17 06:59 18:59 Intake Total 1800 900 Output Total 1850 Balance -50 900 - Medications Medications: Current Medications Acetaminophen (Tylenol 325mg Tab) 650 mg PO Q6 PRN PRN Reason: Fever >100.4 F Last Admin: 10/01/17 02:13 Dose: 650 mg Al Hydrox/Mg Hydrox/Simethicone (Maalox 30 Ml) 30 ml PO TID PRN PRN Reason: Indigestion / Heartburn Last Admin: 09/25/17 00:26 Dose: 30 ml Clonidine HCl (Catapres) 0.1 mg PO Q8 PRN PRN Reason: COWS Score More or Equal to 5 Docusate Sodium (Colace) 100 mg PO BID [facility] Last Admin: 10/01/17 10:06 Dose: 100 mg Folic Acid (Folic Acid) 1 mg PO DAILY [facility] Last Admin: 10/01/17 10:06 Dose: 1 mg Gabapentin (Neurontin) 100 mg PO TID [facility] Last Admin: 10/01/17 10:06 Dose: 100 mg Ferric Sodium Gluconate Complex 125 mg/ Sodium Chloride 110 mls @ 110 mls/hr IVPB DAILY [facility] Stop: 10/03/17 12:01 Last Admin: 10/01/17 10:07 Dose: 110 mls/hr Cefepime HCl 1 gm/ Dextrose 50 mls @ 100 mls/hr IVPB Q12H [facility] Last Admin: 10/01/17 10:08 Dose: 100 mls/hr Lactulose (Enulose) 20 gm PO HS [facility] Last Admin: 09/30/17 21:33 Dose: 20 gm Loperamide HCl (Imodium) 2 mg PO Q8 PRN PRN Reason: Diarrhea Lorazepam (Ativan) 0.5 mg IVP Q6H PRN PRN Reason: Anxiety Last Admin: 09/28/17 11:18 Dose: 0.5 mg Midazolam HCl (Versed Inj) 2 mg IVP ONCE PRN PRN Reason: Agitation/Restlessness Last Admin: 09/28/17 09:00 Dose: 2 mg Ondansetron HCl (Zofran Tab) 4 mg PO Q8 PRN PRN Reason: Nausea/Vomiting Pantoprazole Sodium (Protonix Inj) 40 mg IVP DAILY [facility] Last Admin: 10/01/17 10:06 Dose: 40 mg Tamsulosin HCl (Flomax) 0.4 mg PO DAILY [facility] Last Admin: 10/01/17 10:06 Dose: 0.4 mg Thiamine HCl (Vitamin B1 Tab) 100 mg PO DAILY [facility] Last Admin: 10/01/17 10:06 Dose: 100 mg Tramadol HCl (Ultram) 25 mg PO TID PRN PRN Reason: Pain, moderate (4-7) Last Admin: 10/01/17 10:07 Dose: 25 mg - Labs Labs: 09/30/17 07:02 09/30/17 07:02 PT 22.3 SECONDS (9.7-12.2) H 09/29/17 07:54 INR 1.9 09/29/17 07:54 APTT 43 SECONDS (21-34) H 09/28/17 11:51 - Head Exam Head Exam: ATRAUMATIC - Eye Exam Eye Exam: Scleral icterus - ENT Exam ENT Exam: Mucous Membranes Dry - Respiratory Exam Respiratory Exam: NORMAL BREATHING PATTERN - Cardiovascular Exam Cardiovascular Exam: +S1, +S2 - GI/Abdominal Exam GI & Abdominal Exam: Normal Bowel Sounds Assessment and Plan (1) Pancytopenia Assessment & Plan: suspect liver disease and hep c related Status: Acute (2) Coagulopathy Assessment & Plan: liver disease Status: Acute
--- NOTE | 2017-10-01 13:50 | CP.PCM.PN ---
Subjective - Date & Time of Evaluation Date of Evaluation: 10/01/17 Time of Evaluation: 13:50 - Subjective Subjective: TEMP DOWN ID ON BOARD CONT IV AB BC NEG SO FAR Objective - Vital Signs/Intake and Output Vital Signs (last 24 hours): Temp Pulse Resp BP Pulse Ox 97.9 F 79 20 126/75 99 10/01/17 08:22 10/01/17 08:22 10/01/17 08:22 10/01/17 08:22 10/01/17 08:22 Intake and Output: 10/01/17 10/01/17 11:59 23:59 Intake Total 1700 Balance 1700 - Medications Medications: Current Medications Acetaminophen (Tylenol 325mg Tab) 650 mg PO Q6 PRN PRN Reason: Fever >100.4 F Last Admin: 10/01/17 02:13 Dose: 650 mg Al Hydrox/Mg Hydrox/Simethicone (Maalox 30 Ml) 30 ml PO TID PRN PRN Reason: Indigestion / Heartburn Last Admin: 09/25/17 00:26 Dose: 30 ml Clonidine HCl (Catapres) 0.1 mg PO Q8 PRN PRN Reason: COWS Score More or Equal to 5 Docusate Sodium (Colace) 100 mg PO BID [facility] Last Admin: 10/01/17 10:06 Dose: 100 mg Folic Acid (Folic Acid) 1 mg PO DAILY [facility] Last Admin: 10/01/17 10:06 Dose: 1 mg Gabapentin (Neurontin) 100 mg PO TID [facility] Last Admin: 10/01/17 13:10 Dose: 100 mg Ferric Sodium Gluconate Complex 125 mg/ Sodium Chloride 110 mls @ 110 mls/hr IVPB DAILY [facility] Stop: 10/03/17 12:01 Last Admin: 10/01/17 10:07 Dose: 110 mls/hr Cefepime HCl 1 gm/ Dextrose 50 mls @ 100 mls/hr IVPB Q12H [facility] Last Admin: 10/01/17 10:08 Dose: 100 mls/hr Sodium Chloride (Sodium Chloride 0.9%) 1,000 mls @ 100 mls/hr IV .Q10H [facility] Last Admin: 10/01/17 13:37 Dose: Not Given Lactulose (Enulose) 20 gm PO HS [facility] Last Admin: 09/30/17 21:33 Dose: 20 gm Loperamide HCl (Imodium) 2 mg PO Q8 PRN PRN Reason: Diarrhea Lorazepam (Ativan) 0.5 mg IVP Q6H PRN PRN Reason: Anxiety Last Admin: 09/28/17 11:18 Dose: 0.5 mg Midazolam HCl (Versed Inj) 2 mg IVP ONCE PRN PRN Reason: Agitation/Restlessness Last Admin: 09/28/17 09:00 Dose: 2 mg Ondansetron HCl (Zofran Tab) 4 mg PO Q8 PRN PRN Reason: Nausea/Vomiting Pantoprazole Sodium (Protonix Inj) 40 mg IVP DAILY [facility] Last Admin: 10/01/17 10:06 Dose: 40 mg Tamsulosin HCl (Flomax) 0.4 mg PO DAILY [facility] Last Admin: 10/01/17 10:06 Dose: 0.4 mg Thiamine HCl (Vitamin B1 Tab) 100 mg PO DAILY [facility] Last Admin: 10/01/17 10:06 Dose: 100 mg Tramadol HCl (Ultram) 25 mg PO TID PRN PRN Reason: Pain, moderate (4-7) Last Admin: 10/01/17 10:07 Dose: 25 mg - Labs Labs: 09/30/17 07:02 09/30/17 07:02 PT 22.3 SECONDS (9.7-12.2) H 09/29/17 07:54 INR 1.9 09/29/17 07:54 APTT 43 SECONDS (21-34) H 09/28/17 11:51 Assessment and Plan (1) Renal stone Status: Acute (2) UTI (urinary tract infection) Status: Acute (3) Ureteral stent retained Status: Acute (4) Abdominal pain Status: Acute
--- NOTE | 2017-10-01 22:49 | CP.PCM.PN ---
Subjective - Date & Time of Evaluation Date of Evaluation: 10/01/17 Time of Evaluation: 22:49 - Subjective Subjective: TEMPERATURE 99.1 VSS FEELING BETTER. C/O MILD LEFT FLANK PAIN. DENIES ANY DYSURIA/OR HEMATURIA. Fam REMOVED. Objective - Vital Signs/Intake and Output Vital Signs (last 24 hours): Temp Pulse Resp BP Pulse Ox 98.0 F 92 H 20 106/64 100 10/01/17 15:00 10/01/17 15:00 10/01/17 15:00 10/01/17 15:00 10/01/17 15:00 Intake and Output: 10/01/17 10/02/17 18:59 06:59 Intake Total 2350 1000 Output Total 2375 700 Balance -25 300 - Medications Medications: Current Medications Acetaminophen (Tylenol 325mg Tab) 650 mg PO Q6 PRN PRN Reason: Fever >100.4 F Last Admin: 10/01/17 02:13 Dose: 650 mg Al Hydrox/Mg Hydrox/Simethicone (Maalox 30 Ml) 30 ml PO TID PRN PRN Reason: Indigestion / Heartburn Last Admin: 09/25/17 00:26 Dose: 30 ml Clonidine HCl (Catapres) 0.1 mg PO Q8 PRN PRN Reason: COWS Score More or Equal to 5 Docusate Sodium (Colace) 100 mg PO BID [facility] Last Admin: 10/01/17 17:46 Dose: 100 mg Folic Acid (Folic Acid) 1 mg PO DAILY [facility] Last Admin: 10/01/17 10:06 Dose: 1 mg Gabapentin (Neurontin) 100 mg PO TID [facility] Last Admin: 10/01/17 17:46 Dose: 100 mg Ferric Sodium Gluconate Complex 125 mg/ Sodium Chloride 110 mls @ 110 mls/hr IVPB DAILY [facility] Stop: 10/03/17 12:01 Last Admin: 10/01/17 10:07 Dose: 110 mls/hr Cefepime HCl 1 gm/ Dextrose 50 mls @ 100 mls/hr IVPB Q12H [facility] Last Admin: 10/01/17 21:22 Dose: 100 mls/hr Sodium Chloride (Sodium Chloride 0.9%) 1,000 mls @ 100 mls/hr IV .Q10H [facility] Last Admin: 10/01/17 13:37 Dose: Not Given Lactulose (Enulose) 20 gm PO HS [facility] Last Admin: 10/01/17 21:23 Dose: Not Given Loperamide HCl (Imodium) 2 mg PO Q8 PRN PRN Reason: Diarrhea Lorazepam (Ativan) 0.5 mg IVP Q6H PRN PRN Reason: Anxiety Last Admin: 09/28/17 11:18 Dose: 0.5 mg Midazolam HCl (Versed Inj) 2 mg IVP ONCE PRN PRN Reason: Agitation/Restlessness Last Admin: 09/28/17 09:00 Dose: 2 mg Ondansetron HCl (Zofran Tab) 4 mg PO Q8 PRN PRN Reason: Nausea/Vomiting Pantoprazole Sodium (Protonix Inj) 40 mg IVP DAILY [facility] Last Admin: 10/01/17 10:06 Dose: 40 mg Tamsulosin HCl (Flomax) 0.4 mg PO DAILY [facility] Last Admin: 10/01/17 10:06 Dose: 0.4 mg Thiamine HCl (Vitamin B1 Tab) 100 mg PO DAILY [facility] Last Admin: 10/01/17 10:06 Dose: 100 mg Tramadol HCl (Ultram) 25 mg PO TID PRN PRN Reason: Pain, moderate (4-7) Last Admin: 10/01/17 10:07 Dose: 25 mg - Labs Labs: 09/30/17 07:02 09/30/17 07:02 PT 22.3 SECONDS (9.7-12.2) H 09/29/17 07:54 INR 1.9 09/29/17 07:54 APTT 43 SECONDS (21-34) H 09/28/17 11:51 - Constitutional Appears: No Acute Distress - Head Exam Head Exam: NORMAL INSPECTION - Eye Exam Eye Exam: EOMI, PERRL - ENT Exam ENT Exam: Mucous Membranes Moist, Normal Oropharynx - Neck Exam Neck Exam: Normal Inspection - Respiratory Exam Respiratory Exam: Clear to Ausculation Bilateral - Cardiovascular Exam Cardiovascular Exam: REGULAR RHYTHM, +S1, +S2 - GI/Abdominal Exam GI & Abdominal Exam: Soft, Normal Bowel Sounds. absent: Tenderness - Extremities Exam Extremities Exam: Normal Capillary Refill. absent: Calf Tenderness, Pedal Edema - Psychiatric Exam Psychiatric exam: Normal Mood - Skin Skin Exam: Normal Color, Warm Assessment and Plan (1) Abdominal pain Status: Acute (2) Ureteral stent retained Assessment & Plan: S/P CYSTOSCOPY/URETHROSCOPY AND REMOVAL AND INSERTION OF LEFT URETERAL STENT . POSTOPERATIVE FEVER-improved ALL CULTURES-VE TO DATE PATIENT GOT 1 DOSE OF GENTAMICIN 160 MG AND 1 DOSE OF zOSYN 3.375 G PER . ON IV CEFEPIME 1 G EVERY 12 HOURLY -09/29/17. IF AFEBRILE CAN SWITCH TO BY MOUTH CIPRO 500 MG BY MOUTH TWICE A DAY X 5DAYS. Status: Acute (3) Pancytopenia Assessment & Plan: PATIENT REMAINS LEUKOPENIC AND THROMBOCYTOPENIC MOST LIKELY SECONDARY TO HIS LIVER DISEASE AND ALCOHOL ABUSE. PRESENTLY DENIES ANY ACTIVE BLEEDING. . Status: Acute (4) Renal stone Assessment & Plan: STONE-COMPOSITION 20% CALCIUM OXALATE, 80% CANCER mORNEAU HYDROGEN PHOSPHATE DIHYDRATE. PER . Status: Acute Status: Acute (5) Alcohol abuse Status: Acute (6) Heroin abuse Assessment & Plan: PATIENT TO FOLLOW-UP WITH PSYCHIATRY.. Status: Acute (7) Hx of hepatitis C Assessment & Plan: PATIENT AWARE OF HIS HEPATITIS C. PATIENT INSTRUCTED TO STOP HEROIN USE/ALCOHOL ABUSE. hiv-1 AND 2 ANTIBODY REPEAT NEGATIVE. iNFORMED PATIENT. Status: Acute
[2017-10-02] MEDS: Tramadol 25 mg PO PRN (01:25)
[2017-10-02 07:48] VITALS: BP 130/82; PULSE 96; RESP 20; TEMP 99.6; O2SAT 100
[2017-10-02] MEDS: Sodium Chloride 0.9% 1,000 ML IV SCH (09:13)
[2017-10-02] MEDS: Ferric Sodium Gluconat Complex 125 MG in Sodium Chloride 0.9% 100 ML IVPB SCH (10:48)
--- NOTE | 2017-10-02 10:57 | CP.PCM.PN ---
Subjective - Date & Time of Evaluation Date of Evaluation: 10/02/17 Time of Evaluation: 10:57 - Subjective Subjective: PATIENT IS ADMITTED FOR UROSPESIS; AAOX 3; ABLE TO VOID WITH NO PROBLEM; NO SIGN OF DISTRESS NOTED Objective - Vital Signs/Intake and Output Vital Signs (last 24 hours): Temp Pulse Resp BP Pulse Ox 99.6 F 96 H 20 130/82 100 10/02/17 07:47 10/02/17 07:47 10/02/17 07:47 10/02/17 07:47 10/02/17 07:47 Intake and Output: 10/02/17 10/02/17 06:59 18:59 Intake Total 1880 Output Total 1380 Balance 500 - Medications Medications: Current Medications Acetaminophen (Tylenol 325mg Tab) 650 mg PO Q6 PRN PRN Reason: Fever >100.4 F Last Admin: 10/01/17 02:13 Dose: 650 mg Al Hydrox/Mg Hydrox/Simethicone (Maalox 30 Ml) 30 ml PO TID PRN PRN Reason: Indigestion / Heartburn Last Admin: 09/25/17 00:26 Dose: 30 ml Clonidine HCl (Catapres) 0.1 mg PO Q8 PRN PRN Reason: COWS Score More or Equal to 5 Docusate Sodium (Colace) 100 mg PO BID [facility] Last Admin: 10/02/17 09:51 Dose: 100 mg Folic Acid (Folic Acid) 1 mg PO DAILY [facility] Last Admin: 10/02/17 09:51 Dose: 1 mg Gabapentin (Neurontin) 100 mg PO TID [facility] Last Admin: 10/02/17 09:52 Dose: 100 mg Ferric Sodium Gluconate Complex 125 mg/ Sodium Chloride 110 mls @ 110 mls/hr IVPB DAILY [facility] Stop: 10/03/17 12:01 Last Admin: 10/02/17 10:48 Dose: 110 mls/hr Cefepime HCl 1 gm/ Dextrose 50 mls @ 100 mls/hr IVPB Q12H [facility] Last Admin: 10/02/17 09:52 Dose: 100 mls/hr Sodium Chloride (Sodium Chloride 0.9%) 1,000 mls @ 100 mls/hr IV .Q10H [facility] Last Admin: 10/02/17 09:13 Dose: Not Given Lactulose (Enulose) 20 gm PO [facility] Last Admin: 10/01/17 21:23 Dose: Not Given Loperamide HCl (Imodium) 2 mg PO Q8 PRN PRN Reason: Diarrhea Lorazepam (Ativan) 0.5 mg IVP Q6H PRN PRN Reason: Anxiety Last Admin: 09/28/17 11:18 Dose: 0.5 mg Midazolam HCl (Versed Inj) 2 mg IVP ONCE PRN PRN Reason: Agitation/Restlessness Last Admin: 09/28/17 09:00 Dose: 2 mg Ondansetron HCl (Zofran Tab) 4 mg PO Q8 PRN PRN Reason: Nausea/Vomiting Pantoprazole Sodium (Protonix Inj) 40 mg IVP DAILY [facility] Last Admin: 10/02/17 09:52 Dose: 40 mg Tamsulosin HCl (Flomax) 0.4 mg PO DAILY [facility] Last Admin: 10/02/17 09:56 Dose: 0.4 mg Thiamine HCl (Vitamin B1 Tab) 100 mg PO DAILY [facility] Last Admin: 10/02/17 09:56 Dose: 100 mg Tramadol HCl (Ultram) 25 mg PO TID PRN PRN Reason: Pain, moderate (4-7) Last Admin: 10/02/17 01:25 Dose: 25 mg - Labs Labs: 09/30/17 07:02 09/30/17 07:02 PT 22.3 SECONDS (9.7-12.2) H 09/29/17 07:54 INR 1.9 09/29/17 07:54 APTT 43 SECONDS (21-34) H 09/28/17 11:51 Assessment and Plan - Assessment and Plan (Free Text) Assessment: A/P PATIENT IS SEEN AND EXAMINED AT THE BEDSIDE; LUNG SOUND CLEAR; URINE IS PINKISH COLOR; PATIENT ADVISE TO DRINK PLENTY OF FLUID DISCUSS WITH DR GRACE WHO CLEAR PATIENT FOR DC TODAY FOLLOW UP DR GRACE IN 1-2 WEEK AT HIS OFFICE ---CALL FOR ANOINTMENT FOLLOW UP WITH DR DUMONT IN 1 WEEK AT HIS OFFICE ---CALL FOR APPOINTMENT CONTINUE YOUR HOME MEDICATION PER MED REC DRINK WATER IN ORDER TO FLUSH YOUR BLADDER CALL DR GRACE OR JULIA OR GO TO THE ER IF SYMPTOMS RETURN OR WORSENING SUCH PASSING CLOT OR NOTICE BLOOD IN YOUR URINE DISCUSS WITH PATIENT WHO AGREE AND VERBALIZED UNDERSTANDING
[2017-10-02] MEDS ORDERED: Influenza Vaccine 60 mcg/0.5 mL SYR (4YR UP) IM ONE (11:19)
--- NOTE | 2017-10-04 23:43 | PN ---
DATE: 09/27/2017 UROLOGY PROGRESS NOTE SUBJECTIVE: See the previously dictated notes. The patient is scheduled for a cystoscopy. It turns out that the platelet count is somewhat still low. See the plans listed below. PAST MEDICAL AND SURGICAL HISTORY: No other changes. REVIEW OF SYSTEMS: No changes. PHYSICAL EXAMINATION: No change. DIAGNOSES: Urolithiasis, hematuria, hydronephrosis. PLAN: As follow; we are going to transfuse the patient both FFP and platelets. I will get a time that surgery to do so appropriately. For various scheduling events, it is somewhat difficult. So the patient is now scheduled for 7:30 a.m. on 09/28/2017. Esau Ratliff MD
--- NOTE | 2017-10-05 00:44 | PN ---
DATE: 09/29/2017 UROLOGY PROGRESS NOTE SUBJECTIVE: See the previously dictated consult note and daily progress notes. The patient underwent ureteroscopy yesterday. The patient is resting comfortably. There is still some blood in the urine. See the plan listed below. The past medical and surgical history, otherwise unremarkable. PHYSICAL EXAMINATION: GENERAL: A well-nourished male, in no apparent distress. VITAL SIGNS: As noted. GENITOURINARY: The strings were attached to the venous well. Shaffer catheter is draining with some blood-tinged urine. DIAGNOSES: Urolithiasis, hematuria, and voiding dysfunction. PLAN: As follow; today, we are going to leave the Shaffer in. We are going to monitor the patient. We are going to keep irrigating the catheter. We will plan to remove the double-J stent in a couple of days. Further plans will follow. Esau Ratliff MD
--- NOTE | 2017-10-05 02:19 | PN ---
DATE: 09/23/2017 SUBJECTIVE: Seen in urology consult. We have scheduled the patient for a cystoscopy. Upon further evaluation per the anesthesiologist, they want further evaluation. See the plan listed below. PAST MEDICAL HISTORY: No other changes. PAST SURGICAL HISTORY: No other changes. REVIEW OF SYSTEMS: No major changes. PHYSICAL EXAMINATION: No major changes. DIAGNOSIS: Urolithiasis. PLAN: We are waiting for obtaining consultation from the following services. We are going to have Hematology see the patient regarding the platelet count of 38,000. We are going to have the psychiatrist to evaluate the patient and then further plans will follow, and we will see the date of the plan, but we are going to shoot for 09/27/2017. Further plans to follow. Esau Ratliff MD
--- NOTE | 2017-10-05 06:13 | CON ---
DATE: 09/21/2017 UROLOGY CONSULTATION REASON FOR CONSULTATION: Mr. Jackson comes in consult for renal colic. HISTORY OF PRESENT ILLNESS: Mr. Isaiah Jackson is a very pleasant gentleman who came to us with a stent already in, placed at another institution, and wanting followup care. I tried arranging for a shockwave lithotripsy for his stone. He has stones in both his kidneys and his upper ureter, and my recommendation is shock wave lithotripsy, for which I did make arrangements for a shock wave lithotripsy at [facility]. The patient is very pleasant about it, but the patient is also still actively using heroin. See the plans listed below. Therefore, the [facility] as an ambulatory unit is not a place for the patient. After discussing options, we were trying to arrange for a followup treatment. In the meantime, he came to the ER with severe colic and pain, and Urology was consulted for further recommendations. He has the stent in place, we know that, and you see the films are dictated here in the hospital, I have had a chance to review. He has a stone in the upper ureter as well as stones up in the kidney. See the plans listed below after this consult. The big issue for him is the narcotics, and he is currently actively on heroin. Did review by his own admission and acknowledgment. He may be in some kind of methadone program. PAST MEDICAL AND SURGICAL HISTORY: As listed, otherwise unremarkable. REVIEW OF SYSTEMS: As listed above, otherwise noncontributory other than mentioned above. SOCIAL HISTORY: He actually comes in with a woman that either is his mother or a close relative. MEDICATIONS: See chart. ALLERGIES: SEE CHART. PHYSICAL EXAMINATION GENERAL: A well-nourished male, in no apparent distress. VITAL SIGNS: Within normal limits as listed in the chart. LUNGS: Clear. HEART: Normal S1 and S2. ABDOMEN: Overall soft, nontender, no flank mass appreciated. GENITOURINARY: Normal male phallus without discharge or testicular masses. LABORATORY DATA: See chart, CT Scan. GENITOURINARY DIAGNOSES: Urolithiasis, hematuria, hydronephrosis, stent discomfort. ASSESSMENT AND PLAN: Patient is a very pleasant gentleman. He is better treated with shock wave lithotripsy for both the upper ureteral stone and also for the kidney stones. However, after discussing the options, it is really not an option for him, as he is currently actively using heroin, and therefore he is not a great candidate. From a urology standpoint, as soon as he gets medical clearance, we are going to bring him to the operating room and we will do ureteroscopy and laser lithotripsy for the stones in the ureter, and most likely afterwards, when he is a little more stable and cleared, we will try to recommend shock wave lithotripsy. We will try to remove the stone and the stent as quickly as possible depending on medical clearance. So, in the meantime, the plans are: 1. Obtain a psychiatric evaluation. 2. Medical clearance. 3. Plan for ureteroscopy and laser lithotripsy here in [place], as soon as it is available. Thank you for the Urology consult. Esau Ratliff MD
--- NOTE | 2017-10-05 07:46 | PN ---
DATE: 10/01/2017 See the previously dictated consultation and operative report. SUBJECTIVE: From the Urology standpoint, today we are going to remove the Shaffer catheter and the stent. See the previously dictated notes. The patient is currently resting, complaints of some blood in the urine noted. The past medical and surgical as listed. REVIEW OF SYSTEMS AND PHYSICAL EXAMINATION: GENERAL: Well-nourished male, in no apparent distress. VITAL SIGNS: Within normal limits, included in the chart. ABDOMEN: Difficult to evaluate. . DIAGNOSES: Urolithiasis with stone disease, hematuria, and hydronephrosis. PLAN: Today, the plan is that, at the bedside, we will remove the Shaffer catheter, and also removed the double J-stent intact 2 curls, both up and down. I am planning to get a followup x-ray. The patient still has some stones up in the kidney. He may then have some debris next to the urethral stent the patient is going to do before doing anything further, make further recommendation. ADDENDUM: See the KUB. The KUB does demonstrate little fragments. Nothing that we are going to do any for intervention. I will try when he is available to do shock wave lithotripsy as an outpatient. I have explained this all to the patient in length. He is actually very very appreciative of the care. But, he does understand that he has remnant stones and we need to take care of them. Esau Ratliff MD
--- NOTE | 2017-10-05 09:00 | OP ---
PROCEDURE DATE: PREOPERATIVE DIAGNOSES: Urolithiasis, hematuria, hydronephrosis, multiple stones in the left kidney. POSTOPERATIVE DIAGNOSES: Urolithiasis, hematuria, hydronephrosis, multiple stones in the left kidney. PROCEDURES: Cystoscopy, removal of left double J-stent, left ureteroscopy, left laser lithotripsy, insertion of a left double J-stent with dangles, and insertion of Shaffer catheter. ESTIMATED BLOOD LOSS: About 20 mL. COMPLICATIONS: There were no complications. FINDINGS: An upper ureteral stone. We were able to fragment it completely to the point of just little pieces of stone fragments. The other significant finding is that the patient has stones in his kidney, but we are not addressing those now. See the plans listed below. The other findings, normal anterior urethra, no strictures. On reviewing, it was moderately visually occlusive, relatively normal for a man of his age. The bladder itself is within normal limits. The procedure . INDICATIONS: See the history and physical for details, consultation, multiple progress notes. The patient is finally ready. He received 2 of packed red blood cells and a unit of FFP in preparation because of both the low platelets and because of the elevated INR. We discussed risks and benefits at length, specifically the risk of bleeding. We are planning to proceed. We have decided different locations and we decided we are going to do it here in the hospital. DESCRIPTION OF PROCEDURE: After obtaining informed consent, the patient was placed on the operating table. Routine monitor was placed. Time-out was called to confirm the patient and positioning. Cystoscope via the urethra, the old stent was identified, we removed it without too much difficulty. We were able to put a wire up to the kidney without too much difficulty. We now introduced the rigid ureteroscope adjacent to the wire. We had the safety wire up to the kidney. We identified the stone. We now began laser energy applied with about 1.8 joules which is our maximum, with a frequency of about 3-5 MHz. We used the 300 micron fiber. We provided energy, we can see all the way throughout the line. We identified the stone and we began blasting it. We broke the stone using holmium YAG laser energy. Stone fragmented well. Both fluoroscopically and under direct vision. At this point, we placed a double J-stent (I explained to the patient in the floor that we are not aiming to treat his stone. I did discuss the possibility for flexible ureteroscope today, because my real recommendation is best for shock wave lithotripsy, but this is depending on his maintenance of heroin, methadone, etc.). Overall, today the patient tolerated the procedure well without complication. The plan will be further followup x-ray. Then, we will also plan to remove the stent. We left the stent with dangles with the Shaffer catheter, so we can avoid procedures, but there is some blood in the urine and this is little bit concerning, especially with the platelet count. The patient tolerated the procedure well overall without complication. Esau Ratliff MD
== END 2017-10-02 14:00 | disposition home or self-care (01) | DRG 304 ==
LOC: C.ER 17:25 → C.9E 22:26 → C.3T 23:05
PROVIDERS: ADMIT Internal Medicine Cardiovascular Disease; ATTEND Internal Medicine Cardiovascular Disease
PROC: 0TP98DZ Removal of Intraluminal Device from Ureter, Via Natural or Artificial Opening Endoscopic (ICD-10-PCS; 2017-09-28)
PROC: 0T778DZ Dilation of Left Ureter with Intraluminal Device, Via Natural or Artificial Opening Endoscopic (ICD-10-PCS; 2017-09-28)
PROC: 30233K1 Transfusion of Nonautologous Frozen Plasma into Peripheral Vein, Percutaneous Approach (ICD-10-PCS; 2017-09-28)
PROC: 30233R1 Transfusion of Nonautologous Platelets into Peripheral Vein, Percutaneous Approach (ICD-10-PCS; 2017-09-28)
PROC: 0TC78ZZ Extirpation of Matter from Left Ureter, Via Natural or Artificial Opening Endoscopic (ICD-10-PCS; principal; 2017-09-28 07:30)
DX: N13.2 Hydronephrosis with renal and ureteral calculous obstruction (principal); F11.23 Opioid dependence with withdrawal; D61.818 Other pancytopenia; D68.9 Coagulation defect, unspecified; R16.1 Splenomegaly, not elsewhere classified; B19.20 Unspecified viral hepatitis C without hepatic coma; F10.20 Alcohol dependence, uncomplicated; D50.0 Iron deficiency anemia secondary to blood loss (chronic); D72.819 Decreased white blood cell count, unspecified; F14.90 Cocaine use, unspecified, uncomplicated; K74.60 Unspecified cirrhosis of liver; N39.0 Urinary tract infection, site not specified; Z87.442 Personal history of urinary calculi; F17.210 Nicotine dependence, cigarettes, uncomplicated; J45.909 Unspecified asthma, uncomplicated; Z95.5 Presence of coronary angioplasty implant and graft; R31.9 Hematuria, unspecified; M47.9 Spondylosis, unspecified; Z79.899 Other long term (current) drug therapy

== ENCOUNTER 2018-02-16 13:03 | Inpatient (IN) | payer MEDICAID ==
--- NOTE | 2018-02-16 14:04 | C.PDOC ---
History Of Present Illness 47 y/o male with a history of heroin and alcohol abuse presents to the ED due to feeling "sick" and wanting detox. Patient states he uses 10 bags of heroin and drinks a pint of alcohol per day. Last used at 1 am early this morning. He is complaining of diarrhea associated with abdominal discomfort. Denies any nausea or vomiting. Was last seen here for detox in 2013. Of note, patient has a umbilical and inguinal hernia. PMD: [place] Time Seen by Provider: 02/16/18 13:32 Chief Complaint (Nursing): Substance Abuse History Per: Patient History/Exam Limitations: intoxication Onset/Duration Of Symptoms: Days Current Symptoms Are (Timing): Still Present Modifying Factor(s): Alcohol, Narcotics Recent travel outside of the [place]: No Past Medical History Vital Signs: Last Vital Signs Temp 98.5 F 02/16/18 15:07 Pulse 84 02/16/18 15:07 Resp 18 02/16/18 15:07 BP 145/73 02/16/18 15:07 Pulse Ox 99 02/16/18 16:06 - Medical History PMH: Arthritis (back), Asthma, Fractures (right arm), Hepatitis, Kidney Stones Denies: Diabetes, HIV, HTN, Chronic Kidney Disease, Seizures, Sexually Transmitted Disease Surgical History: No Surg Hx - [facility] Procedures COMBINED ALCOHOL AND DRUG DETOXIFICATION (09/04/14) DILATION OF LEFT URETER WITH INTRALUMINAL DEVICE, ENDO (09/21/17) EXTIRPATION OF MATTER FROM LEFT URETER, ENDO (09/21/17) REMOVAL OF INTRALUMINAL DEVICE FROM URETER, ENDO (09/21/17) TRANSFUSE NONAUT FROZEN PLASMA IN PERIPH VEIN, PERC (09/21/17) TRANSFUSE NONAUT PLATELETS IN PERIPH VEIN, PERC (09/21/17) Family History: States: Unknown Family Hx - Social History Hx Tobacco Use: Yes Hx Alcohol Use: Yes (4-5 can of Beer per day) Hx Substance Use: Yes (Heroin/ Cocaine) - Immunization History Hx Tetanus Toxoid Vaccination: No Hx Influenza Vaccination: No Hx Pneumococcal Vaccination: No Review Of Systems Constitutional: Positive for: Other (EtOH intoxication and substance abuse) Gastrointestinal: Positive for: Abdominal Pain, Diarrhea. Negative for: Nausea , Vomiting Physical Exam - Physical Exam Appears: Well, No Acute Distress Skin: Normal Color, Warm, Dry Head: Atraumatic, Normacephalic Eye(s): bilateral: Normal Inspection, PERRL, EOMI Nose: Normal Throat: Normal Neck: Normal, Supple Cardiovascular: Rhythm Regular, No Murmur Respiratory: Normal Breath Sounds, No Decreased Breath Sounds Gastrointestinal/Abdominal: Normal Exam, Hernia (reducibile, periumbilical and right inguinal hernia) Back: Normal Inspection, No CVA Tenderness, No Vertebral Tenderness Extremity: Normal ROM, No Pedal Edema, No Deformity Neurological/Psych: Oriented x3 ED Course And Treatment - Laboratory Results Result Diagrams: 02/16/18 14:17 02/16/18 14:17 Lab Interpretation: No Acute Changes O2 Sat by Pulse Oximetry: 99 (RA) Pulse Ox Interpretation: Normal Progress Note: Patient is medically cleared for detox admission. Medical Decision Making Medical Decision Making: Time: 13:20 Impression: Kristie substance abuse Initial Plan: * Alcohol Serum Test * CMP * Drug Screen * CBC * Urinalysis Scribe Attestation: Documented by Fatoumata Castillo acting as a scribe for Priyanka Bentley MD. Scribe Attestation: All medical record entries made by the Scribe were at my direction and personally dictated by me. I have reviewed the chart and agree that the record accurately reflects my personal performance of the history, physical exam, medical decision making, and the department course for this patient. I have also personally directed, reviewed, and agree with the discharge instructions and disposition. Disposition - Disposition Disposition: HOSPITALIZED Disposition Time: 16:13 Condition: STABLE - POA Present On Arrival: None - Clinical Impression Clinical Impression: Opiate dependence, continuous, Alcohol dependence
[2018-02-16 14:25] LABS: BASO % 0.7 % (0.0-2.0); EOS # 0.2 K/uL (0.0-0.7); EOS % 4.4 % (0.0-4.0); HEMOGLOBIN 10.9 g/dL (12.0-18.0); LYMPH # 0.9 K/uL (1.0-4.3); LYMPH % 25.1 % (20.0-40.0); MEAN CORPUSCULAR HEMOGLOBIN 33.9 pg (27.0-31.0); MEAN CORPUSCULAR HGB CONC 34.6 g/dL (33.0-37.0); MEAN PLATELET VOLUME 10.6 fL (7.2-11.7); MONO # 0.2 K/uL (0.0-0.8); MONO % 5.5 % (0.0-10.0); NEUT # 2.4 K/uL (1.8-7.0); NEUT % 64.3 % (50.0-75.0); NRBC % 0.1 % (0.0-2.0); RBC 3.22 Mil/uL (4.40-5.90)
[2018-02-16 14:28] LABS: MEAN CELL VOLUME 98.1 fL (80.0-94.0); WHITE BLOOD COUNT 3.7 K/uL (4.8-10.8)
[2018-02-16 14:36] LABS: ALB/GLOB RATIO 0.5 (1.0-2.1); ALBUMIN 2.1 g/dL (3.5-5.0); ALT/SGPT 98 U/L (21-72); AST/SGOT 155 U/L (17-59); BLOOD UREA NITROGEN 7 mg/dL (9-20); CALCIUM 7.9 mg/dl (8.6-10.4); GFR AFRICAN-AMERICAN > 60; GFR NON-AFRICAN AMERICAN > 60
[2018-02-16 14:39] LABS: BARBITURATES, UR NEGATIVE (NEGATIVE); BENZODIAZEPINES, UR NEGATIVE (NEGATIVE); PHENCYCLIDINE, UR NEGATIVE (NEGATIVE)
[2018-02-16 14:40] LABS: URINE BACTERIA OCC (<OCC); URINE BILIRUBIN NEGATIVE (NEGATIVE); URINE BLOOD 3+ (NEGATIVE); URINE CLARITY Hazy (Clear); URINE COLOR Yellow (YELLOW); URINE GLUCOSE (UA) NORMAL (Normal); URINE LEUKOCYTE ESTERASE 3+ Leu/uL (Negative); URINE PROTEIN 2+ mg/dL (NEGATIVE); URINE UROBILINOGEN NORMAL mg/dL (0.2-1.0)
[2018-02-16 15:10] LABS: OPIATES, UR POSITIVE (NEGATIVE)
--- NOTE | 2018-02-16 16:51 | PCM.BM ---
<Deshaun Saez - Last Filed: 02/16/18 16:50> Treatment Plan Problems - Problems identified on initial assessmt potential for opiate withdrawal Date Initiated: 02/16/18 Time Initiated: 16:49 Status: Active potential for alcohol withdrawal Date Initiated: 02/16/18 Time Initiated: 16:51 Status: Active Treatment assets and liabiliti Patient Assests: cooperative, cognitively intact Patient Liabilities: substance abuse, medical problems - Milieu Protocol Maintain good personal hygiene: daily Encourage regular showers, daily Remind patient to perform daily oral care, daily Assist patient to perform ADL's Conduct patient checks and document Observation sheet: Q15 minutes Maintain personal safety: every shift Educate patient to report safety concerns to staff, every shift Monitor environment for contraband/sharps Medication safety: Monitor for expected outcome, potential side effects: every shift, Assess barriers to learning: every shift, Assess readiness for medication education: every shift <Shashank Bruce - Last Filed: 02/18/18 11:20> - Diagnosis (1) Opiate dependence, continuous Status: Acute Interventions: 02/18/18 11:20 * Assess 7x/week regarding severity of withdrawal * Educate regarding risks, benefits, side effects and alternatives of medications * Use Motivational Interviewing for abstinence * Use CBT for relapse prevention * Medication management for withdrawal symptoms * Encourage medication assisted treatment *
[2018-02-16] MEDS ORDERED: Aluminum Hydroxide/Magnesium Hydroxide Susp (30 mL) PO PRN (17:45)
[2018-02-16] MEDS ORDERED: Buprenorphine Hydrochloride 2 mg SL ONE (17:56)
[2018-02-16] MEDS: Multiple Vitamins Tab PO SCH (18:09)
[2018-02-16] MEDS: Buprenorphine Hydrochloride 2 mg SL SCH ×2 (19:07→19:41)
[2018-02-17] MEDS: Multiple Vitamins Tab PO SCH (09:28)
[2018-02-17] MEDS: Buprenorphine Hydrochloride 2 mg SL SCH (09:28)
--- NOTE | 2018-02-17 13:58 | PCM.PSYCH ---
Initial Psychiatric Evaluation - Initial Psychiatric Evaluation Type of Admission: Voluntary Legal Status: Capacity Chief Complaint (in patient's own words): "I need detox" History of Present Illness and Precipitating Events: The patient is seen, chart reviewed and case discussed. 6 is a 47-year-old male, single with no child, lives with his sister in [place], unemployed. The patient is using 10 bags IV heroin for the past 4 years. He used alcohol but stopped 2 months ago. He denies smoking cigarettes or other drugs. This is his second detox and he has never been to rehabilitation. He later admitted that he sometimes drinks 4 cans of beer and took some Xanax to cope with withdrawals from heroin. 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 Past psych history: Denies Medical history: Hepatitis C Family psych history: Denies Current Medications: Active Medications Generic Name Dose Route Start Last Admin Trade Name Freq PRN Reason Stop Dose Admin Al Hydrox/Mg Hydrox/Simethicone 30 ml 02/16/18 17:45 Maalox 30 Ml PO TID PRN Indigestion / Heartburn Buprenorphine HCl 8 mg 02/17/18 10:00 02/17/18 09:28 Subutex SL 02/22/18 09:59 8 mg DAILY ROBYN Administration Taper Ciprofloxacin 500 mg 02/16/18 18:00 02/17/18 09:52 Cipro PO 02/21/18 10:00 500 mg BID ROBYN Administration Protocol Clonidine HCl 0.1 mg 02/16/18 17:45 02/16/18 18:09 Catapres PO 0.1 mg Q8 PRN Administration COWS Score More or Equal to 5 Dicyclomine HCl 10 mg 02/16/18 17:45 Bentyl PO Q6 PRN Abdominal Cramps Folic Acid 1 mg 02/16/18 18:00 02/17/18 09:28 Folic Acid PO 1 mg DAILY ROBYN Administration Gabapentin 300 mg 02/16/18 18:00 02/17/18 09:28 Neurontin PO 300 mg BID ROBYN Administration Ibuprofen 400 mg 02/16/18 17:48 Motrin Tab PO Q6 PRN Pain, moderate (4-7) Loperamide HCl 2 mg 02/16/18 17:45 Imodium PO Q8 PRN Diarrhea Lorazepam 2 mg 02/16/18 18:00 02/17/18 11:31 Ativan PO 02/20/18 17:59 2 mg Q6 ROBYN Administration Taper Multivitamins 1 tab 02/16/18 18:00 02/17/18 09:28 Hexavitamin PO 1 tab DAILY ROBYN Administration Ondansetron HCl 4 mg 02/16/18 17:45 Zofran Tab PO Q8 PRN Nausea/Vomiting Thiamine HCl 100 mg 02/16/18 18:00 02/17/18 09:28 Vitamin B1 Tab PO 100 mg DAILY ROBYN Administration Trazodone HCl 100 mg 02/17/18 22:00 Desyrel PO HS PRN Insomnia Past Psychiatric History - Past Psychiatric History Previous Treatment History: None Pertinent Medical Hx (Current Medical&Sleep Prob, Allergies): Allergies Allergy/AdvReac Type Severity Reaction Status Date / Time No Known Allergies Allergy Verified 02/16/18 13:20 No Known Home Med 02/16/18 Review of Systems - Psychiatric Psychiatric: Abnormal Sleep Pattern, Anxiety, Difficulty Concentrating. absent : Depression, Hallucinations, Homicidal Ideation, Irritability, Paranoia, Suicidal Ideation Mental Status Examination - Personal Presentation Personal Presentation: Looks stated age - Affect Affect: Constricted - Motor Activity Motor Activity: Calm - Reliability in Providing Information Reliability in Providing Information: Good - Speech Speech: Organized - Mood Mood: Anxious - Formal Thought Process Formal Thought Process: No Impairment - Cognitive Functions Orientation: Person, Place, Situation, Time Sensorium: Alert Attention/Concentration: Attentive Estimate of Intelligence: Average Judgement: Intact, as evidence by: Insight regarding need for hospitalization Memory: Recent intact, as evidence by: Ability to recall events of the day, Remote intact, as evidenced by: Abilit to recall sig. life events - Risk Risk: Withdrawal, Diminished functioning - Strength & Assets Inventory Strength & Assets Inventory: Life experience, Cooperative - Limitations Limitations: Other DSM 5 DX - DSM 5 DSM 5 Diagnosis: Opioid withdrawal OPioid use d/o - severe UTI - Recommended/Plan of Treatment Treatment Recommendations and Plan of Treatment: Taper with subutex Gabapentin for augmentation As needed medications All risks, benefits and alternatives of the meds discussed, and the pt agreed and understood. Attend groups and activities Supportive therapy and psychoeducation [place] for abstinence CBT for relapse prevention Encourage MAT Refer to rehab or IOP, and self-help groups Smoking cessation with [place] Nicotine patch if needed 34 min Projected ELOS: 5-6 days Prognosis: Good with treatment - Smoking Cessation Smoking Cessation Initiated: Yes
[2018-02-17] MEDS ORDERED: Buprenorphine Hydrochloride 2 mg SL SCH (17:57)
[2018-02-18] MEDS: Buprenorphine Hydrochloride 2 mg SL SCH (10:39)
[2018-02-18] MEDS: Multiple Vitamins Tab PO SCH (10:40)
--- NOTE | 2018-02-18 11:19 | PCM.PYCHPN ---
Psychiatric Progress Note - Psychiatric Progress Note Patient seen today, length of contact: 16 min Patient Chief Complaint: "I am better a little" Problems Identified/Issues Discussed: The pt is seen, chart reviewed, case discussed with staff. The pt is compliant with medications and reports no side-effects. Symptoms are improving but needs more time to stabilize. After care discussed, support and psychoeducation given. Medication Change: Yes (detox changes daily) Medical Record Reviewed: Yes Mental Status Examination - Cognitive Function Orientation: Person, Place, Situation, Time Memory: Intact Attention: WNL Concentration: WNL Association: WNL Fund of Knowledge: WNL - Mood Mood: Anxious - Affect Affect: Constricted - Speech Speech: Appropriate - Formal Thought Process Formal Thought Process: No Impairment - Suicidal Ideation Suicidal Ideation: No - Homicidal Ideation Homicidal Ideation: No Goal/Treatment Plan - Goal/Treatment Plan Need for Continued Stay: Discharge may exacerbated symptoms, Severe functional impairment Progress Toward Problem(s) and Goals/Treatment Plan: Taper with subutex Gabapentin for augmentation As needed medications All risks, benefits and alternatives of the meds discussed, and the pt agreed and understood. Attend groups and activities Supportive therapy and psychoeducation [place] for abstinence CBT for relapse prevention Encourage MAT Refer to rehab or IOP, and self-help groups Smoking cessation with [place] Nicotine patch if needed
[2018-02-18 14:24] LABS: BASO % 0.5 % (0.0-2.0); EOS # 0.1 K/uL (0.0-0.7); EOS % 3.4 % (0.0-4.0); HEMOGLOBIN 10.2 g/dL (12.0-18.0); LYMPH # 0.7 K/uL (1.0-4.3); LYMPH % 23.1 % (20.0-40.0); MEAN CELL VOLUME 97.3 fL (80.0-94.0); MEAN CORPUSCULAR HEMOGLOBIN 34.3 pg (27.0-31.0); MEAN CORPUSCULAR HGB CONC 35.3 g/dL (33.0-37.0); MEAN PLATELET VOLUME 10.7 fL (7.2-11.7); MONO # 0.3 K/uL (0.0-0.8); MONO % 8.6 % (0.0-10.0); NEUT # 2.1 K/uL (1.8-7.0); NEUT % 64.4 % (50.0-75.0); NRBC % 0.2 % (0.0-2.0); RBC 2.98 Mil/uL (4.40-5.90); RED CELL DISTRIBUTION WIDTH 16.8 % (11.5-14.5); WHITE BLOOD COUNT 3.2 K/uL (4.8-10.8)
[2018-02-18 14:41] LABS: ALB/GLOB RATIO 0.5 (1.0-2.1); ALBUMIN 1.9 g/dL (3.5-5.0); ALT/SGPT 69 U/L (21-72); AST/SGOT 116 U/L (17-59); BLOOD UREA NITROGEN 9 mg/dL (9-20); CALCIUM 8.3 mg/dl (8.6-10.4); GFR AFRICAN-AMERICAN > 60; GFR NON-AFRICAN AMERICAN > 60
[2018-02-19] MEDS: Multiple Vitamins Tab PO SCH (10:50)
[2018-02-19] MEDS: Buprenorphine Hydrochloride 2 mg SL SCH (10:52)
[2018-02-19] MEDS: Calcium Carbonate 500 mg Chewable Antacid Tab PO SCH ×2 (11:06→18:11)
--- NOTE | 2018-02-19 13:25 | PCM.PYCHPN ---
Psychiatric Progress Note - Psychiatric Progress Note Patient seen today, length of contact: 16 min Patient Chief Complaint: "I am better a little" Problems Identified/Issues Discussed: The pt is seen, chart reviewed, case discussed with staff. The pt is compliant with medications and reports no side-effects. Symptoms are improving but needs more time to stabilize. After care discussed, support and psychoeducation given. Medication Change: Yes (detox changes daily) Medical Record Reviewed: Yes Mental Status Examination - Cognitive Function Orientation: Person, Place, Situation, Time Memory: Intact Attention: WNL Concentration: WNL Association: WNL Fund of Knowledge: WNL - Mood Mood: Anxious - Affect Affect: Constricted - Speech Speech: Appropriate - Formal Thought Process Formal Thought Process: No Impairment - Suicidal Ideation Suicidal Ideation: No - Homicidal Ideation Homicidal Ideation: No Goal/Treatment Plan - Goal/Treatment Plan Need for Continued Stay: Discharge may exacerbated symptoms, Severe functional impairment Progress Toward Problem(s) and Goals/Treatment Plan: Taper with subutex Gabapentin for augmentation As needed medications All risks, benefits and alternatives of the meds discussed, and the pt agreed and understood. Attend groups and activities Supportive therapy and psychoeducation [place] for abstinence CBT for relapse prevention Encourage MAT Refer to rehab or IOP, and self-help groups Smoking cessation with [place] Nicotine patch if needed
[2018-02-19 16:49] VITALS: O2SAT 100
[2018-02-20 06:28] VITALS: BP 120/76; PULSE 95; RESP 20; TEMP 98
--- NOTE | 2018-02-20 10:22 | PCM.PYCHDC ---
Mental Status Examination - Mental Status Examination Orientation: Person Discharge Summary - Discharge Note Consultations:: List each consultation separately and include: 1. Reason for request. 2. Findings. 3. Follow-up Summary of Hospital Course include:: 1. Description of specific treatment plan utilized for patients during their course of treatmen. 2. Summarize the time- course for resolution of acute symptoms and/or regressed behaviors. 3. Describe issues identified and worked on during hospitalization. 4. Describe medication utilized. 5. Describe medical problems identified and treated. 6. Reassessment of suicide risk Summary of Hospital Course: The patient is seen, chart reviewed and case discussed. 6 is a 47-year-old male, single with no child, lives with his sister in [place], unemployed. The patient is using 10 bags IV heroin for the past 4 years. He used alcohol but stopped 2 months ago. He denies smoking cigarettes or other drugs. This is his second detox and he has never been to rehabilitation. He later admitted that he sometimes drinks 4 cans of beer and took some Xanax to cope with withdrawals from heroin. 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 Past psych history: Denies Medical history: Hepatitis C Family psych history: Denies He left a day early without even waiting to get a rx or take his last dose of 2 mg subutex. Risks of skipping doses and not following plans, incl. relapse, OD and even discussed. He understood but still demanded, loudly, to leave. He will wait for [facility]. - Diagnosis (1) Opiate dependence, continuous Status: Acute - Final Diagnosis (DSM 5) Condition upon Discharge: STABLE Disposition: HOME/ ROUTINE Follow-up Treatment Plan: Taper with subutex Gabapentin for augmentation As needed medications All risks, benefits and alternatives of the meds discussed, and the pt agreed and understood. Attend groups and activities Supportive therapy and psychoeducation [place] for abstinence CBT for relapse prevention Encourage MAT Refer to rehab or IOP, and self-help groups Smoking cessation with [place] Nicotine patch if needed
== END 2018-02-20 07:45 | disposition home or self-care (01) | DRG 744 ==
LOC: C.ER 13:03 → C.7D 16:14
PROC: HZ2ZZZZ Detoxification Services for Substance Abuse Treatment (ICD-10-PCS; principal; 2018-02-16)
PROC: HZ52ZZZ Individual Psychotherapy for Substance Abuse Treatment, Cognitive-Behavioral (ICD-10-PCS; 2018-02-16)
PROC: HZ59ZZZ Individual Psychotherapy for Substance Abuse Treatment, Supportive (ICD-10-PCS; 2018-02-16)
PROC: HZ56ZZZ Individual Psychotherapy for Substance Abuse Treatment, Psychoeducation (ICD-10-PCS; 2018-02-16)
PROC: HZ42ZZZ Group Counseling for Substance Abuse Treatment, Cognitive-Behavioral (ICD-10-PCS; 2018-02-16)
PROC: HZ46ZZZ Group Counseling for Substance Abuse Treatment, Psychoeducation (ICD-10-PCS; 2018-02-16)
DX: F11.23 Opioid dependence with withdrawal (principal); N39.0 Urinary tract infection, site not specified; B19.20 Unspecified viral hepatitis C without hepatic coma; G47.00 Insomnia, unspecified; F10.10 Alcohol abuse, uncomplicated; Y90.3 Blood alcohol level of 60-79 mg/100 ml

== ENCOUNTER 2018-04-06 12:06 | Inpatient (IN) | payer MEDICAID ==
[2018-04-06 13:08] LABS: BASO % 0.6 % (0.0-2.0); EOS # 0.2 K/uL (0.0-0.7); EOS % 3.8 % (0.0-4.0); HEMOGLOBIN 10.8 g/dL (12.0-18.0); LYMPH # 0.8 K/uL (1.0-4.3); LYMPH % 13.5 % (20.0-40.0); MEAN CORPUSCULAR HGB CONC 34.8 g/dL (33.0-37.0); MEAN PLATELET VOLUME 11.9 fL (7.2-11.7); MONO # 0.7 K/uL (0.0-0.8); MONO % 11.4 % (0.0-10.0); NEUT # 4.1 K/uL (1.8-7.0); NEUT % 70.7 % (50.0-75.0); RBC 3.26 Mil/uL (4.40-5.90); RED CELL DISTRIBUTION WIDTH 16.6 % (11.5-14.5)
[2018-04-06 13:09] LABS: MEAN CELL VOLUME 94.8 fL (80.0-94.0); WHITE BLOOD COUNT 5.8 K/uL (4.8-10.8)
[2018-04-06 13:23] LABS: ALB/GLOB RATIO 0.6 (1.0-2.1); ALBUMIN 2.4 g/dL (3.5-5.0); ALT/SGPT 100 U/L (21-72); AST/SGOT 188 U/L (17-59); BLOOD UREA NITROGEN 16 mg/dL (9-20); CALCIUM 8.1 mg/dl (8.6-10.4); GFR AFRICAN-AMERICAN > 60; GFR NON-AFRICAN AMERICAN > 60
[2018-04-06 13:36] LABS: URINE BACTERIA OCC (<OCC); URINE BILIRUBIN NEGATIVE (NEGATIVE); URINE BLOOD 3+ (NEGATIVE); URINE CALCIUM OXALATE CRYSTALS OCC /hpf (<OCC); URINE CLARITY Hazy (Clear); URINE COLOR Amber (YELLOW); URINE GLUCOSE (UA) NORMAL (Normal); URINE LEUKOCYTE ESTERASE 3+ Leu/uL (Negative); URINE PROTEIN 1+ mg/dL (NEGATIVE)
[2018-04-06 14:35] LABS: BARBITURATES, UR NEGATIVE (NEGATIVE); PHENCYCLIDINE, UR NEGATIVE (NEGATIVE)
[2018-04-06 14:36] LABS: BENZODIAZEPINES, UR POSITIVE (NEGATIVE); OPIATES, UR POSITIVE (NEGATIVE)
--- NOTE | 2018-04-06 14:45 | C.PDOC ---
History Of Present Illness 47-year-old male, presents to the emergency department, prescreened for detox from Heroin. Patients last use was last night. he denies any other complaints at this time. Time Seen by Provider: 04/06/18 12:36 Chief Complaint (Nursing): Substance Abuse History Per: Patient History/Exam Limitations: no limitations Past Medical History Reviewed: Historical Data, Nursing Documentation, Vital Signs - Medical History PMH: Arthritis (back), Asthma, Fractures (right arm), Hepatitis (C), Hiatal Hernia, Kidney Stones Denies: Diabetes, HIV, HTN, Chronic Kidney Disease, Seizures, Sexually Transmitted Disease Surgical History: Denies: Coronary Stent - [facility] Procedures COMBINED ALCOHOL AND DRUG DETOXIFICATION (09/04/14) DETOXIFICATION SERVICES FOR SUBSTANCE ABUSE TREATMENT (02/16/18) DILATION OF LEFT URETER WITH INTRALUMINAL DEVICE, ENDO (09/21/17) EXTIRPATION OF MATTER FROM LEFT URETER, ENDO (09/21/17) GROUP CALENDER OPERATOR HELPER FOR SUBSTANCE ABUSE TREATMENT, PSYCHOEDUCATION (02/16/18) GROUP CALENDER OPERATOR HELPER FOR SUBSTANCE ABUSE, COGNITIVE BEHAVIORAL (02/16/18) INDIV PSYCHOTHERAPY FOR SUBSTANCE ABUSE TREATMENT, SUPPORT (02/16/18) INDIV PSYCHOTHERAPY FOR SUBSTANCE ABUSE, COGNITIV BEHAVIORAL (02/16/18) INDIV PSYCHOTHERAPY FOR SUBSTANCE ABUSE, PSYCHOEDUCATION (02/16/18) REMOVAL OF INTRALUMINAL DEVICE FROM URETER, ENDO (09/21/17) TRANSFUSE NONAUT FROZEN PLASMA IN PERIPH VEIN, PERC (09/21/17) TRANSFUSE NONAUT PLATELETS IN PERIPH VEIN, PERC (09/21/17) Family History: States: No Known Family Hx - Social History Hx Tobacco Use: Yes Hx Alcohol Use: Yes Hx Substance Use: Yes - Immunization History Hx Tetanus Toxoid Vaccination: No Hx Influenza Vaccination: No Hx Pneumococcal Vaccination: No Review Of Systems Constitutional: Negative for: Fever, Chills Cardiovascular: Negative for: Chest Pain, Palpitations Respiratory: Negative for: Shortness of Breath Gastrointestinal: Negative for: Nausea, Vomiting Musculoskeletal: Negative for: Back Pain Neurological: Negative for: Weakness, Numbness, Headache, Dizziness Psych: Negative for: Suicidal ideation, Withdrawal Physical Exam - Physical Exam Appears: Non-toxic, No Acute Distress Skin: Normal Color, Warm, Dry, No Rash Head: Atraumatic, Normacephalic Eye(s): bilateral: Normal Inspection Nose: Normal Oral Mucosa: Moist Lips: Normal Appearing Neck: Normal ROM Cardiovascular: Rhythm Regular Respiratory: Normal Breath Sounds, No Accessory Muscle Use Gastrointestinal/Abdominal: Soft, No Tenderness Extremity: Normal ROM, No Deformity, No Swelling Neurological/Psych: Oriented x3, Normal Speech ED Course And Treatment - Laboratory Results Result Diagrams: 04/06/18 13:05 04/06/18 13:05 Disposition Discussed With : Shashank Bruce Doctor Will See Patient In The: Hospital Counseled Patient/Family Regarding: Studies Performed, Diagnosis - Disposition Disposition Time: 15:17 Condition: FAIR Forms: [employer] (Icelandic) - Clinical Impression Clinical Impression: Drug abuse, UTI (urinary tract infection) - Scribe Statement The provider has reviewed the documentation as recorded by the Scribe (Paula Ypeez) All medical record entries made by the Scribe were at my direction and personally dictated by me. I have reviewed the chart and agree that the record accurately reflects my personal performance of the history, physical exam, medical decision making, and the department course for this patient. I have also personally directed, reviewed, and agree with the discharge instructions and disposition.
[2018-04-06] MEDS ORDERED: Aluminum Hydroxide/Magnesium Hydroxide Susp (30 mL) PO PRN (15:16)
--- NOTE | 2018-04-06 15:34 | PCM.BM ---
<Yenny Foreman - Last Filed: 04/06/18 15:32> Treatment Plan Problems - Problems identified on initial assessmt potiential for opiate withdrawal Date Initiated: 04/06/18 Time Initiated: 15:33 Assessment reference: NA Status: Active Treatment assets and liabiliti Patient Assests: cooperative, ADL independent, cognitively intact Patient Liabilities: substance abuse, medical problems - Milieu Protocol Maintain good personal hygiene: daily Encourage regular showers, daily Remind patient to perform daily oral care, daily Assist patient to perform ADL's Maintain personal safety: every shift Educate patient to report safety concerns to staff, every shift Monitor environment for contraband/sharps Medication safety: Monitor for expected outcome, potential side effects: every shift, Assess barriers to learning: every shift, Assess readiness for medication education: every shift <Alisson Garcia - Last Filed: 04/08/18 13:49> Family Contact Family involvement: Famliy/SO not involved - Goals for Treatment Patient goals for treatment: Complete detox and apply for [facility] rehab. Discharge/Continuing Care - Education Needs Education Needs: Patient Medication, Patient Diagnosis/Disease Process, Patient Coping Skills, Patient Anger Management skills, Patient Placement options, Patient Community resources - Discharge Discharge Criteria: No longer exhibiting s/s of withdrawal, Reduction of target symptoms Discharge to:: Substance Abuse Rehab - Treatment Team Participation Patient/Family/SO Statement: 04/08/18 13:49 "I wanna try to get into [facility] if I can..." Discussed with Family/SO: No Was Patient/Family/SO present at Treatment Team Meeting: Yes
[2018-04-06] MEDS ORDERED: Naproxen 550 mg Tab PO ONE (16:28)
[2018-04-06] MEDS ORDERED: Buprenorphine Hydrochloride 2 mg SL ONE ×2 (17:03→18:00)
[2018-04-06] MEDS ORDERED: Albuterol HFA 90 mcg/actuation (8 g) INH PRN (18:11)
[2018-04-07] MEDS: Buprenorphine Hydrochloride 2 mg SL SCH (09:06)
[2018-04-07] MEDS ORDERED: Buprenorphine Hydrochloride 2 mg SL SCH (10:00)
--- NOTE | 2018-04-07 10:45 | PCM.PSYCH ---
Initial Psychiatric Evaluation - Initial Psychiatric Evaluation Type of Admission: Voluntary Legal Status: Capacity Chief Complaint (in patient's own words): "Heroin again" History of Present Illness and Precipitating Events: The patient is seen, chart reviewed and case discussed.He is known from a recent admission to our detox unit. This is a 47-year-old male, single with no child, lives with his sister in [place], unemployed. On SSI The patient is now using 20 bags IV heroin for the past 4 years. He used alcohol but stopped 3 months ago. He denies smoking cigarettes or other drugs. This is his third detox and he has never been to rehabilitation. He later admitted that he sometimes drinks 4 cans of beer and took some Xanax to cope with withdrawals from heroin. 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 again, after here. last time he rushed to leave and this time he says he needs to have a minor surgery for kidney stones and then will go to [facility]. Past psych history: Denies Medical history: Hepatitis C Family psych history: Denies Current Medications: Active Medications Generic Name Dose Route Start Last Admin Trade Name Freq PRN Reason Stop Dose Admin Al Hydrox/Mg Hydrox/Simethicone 30 ml 04/06/18 15:16 Maalox 30 Ml PO TID PRN Indigestion / Heartburn Albuterol 1 puff 04/06/18 18:11 Ventolin Hfa 90 Mcg/Actuation (8 G) INH RQ6 PRN SOB Buprenorphine HCl 8 mg 04/07/18 10:00 04/07/18 09:06 Subutex SL 04/12/18 09:59 8 mg DAILY ROBYN Administration Taper Ciprofloxacin 500 mg 04/07/18 10:00 04/07/18 09:06 Cipro PO 04/13/18 18:01 500 mg BID ROBYN Administration Protocol Clonidine HCl 0.1 mg 04/06/18 15:16 Catapres PO Q8 PRN COWS Score More or Equal to 5 Gabapentin 300 mg 04/06/18 18:00 04/07/18 09:06 Neurontin PO 300 mg TID ROBYN Administration Hydroxyzine HCl 50 mg 04/06/18 15:17 Atarax PO Q6H PRN Anxiety Ibuprofen 600 mg 04/06/18 15:17 Motrin Tab PO Q6H PRN Pain, moderate (4-7) Loperamide HCl 2 mg 04/06/18 15:16 04/07/18 09:06 Imodium PO 2 mg Q8 PRN Administration Diarrhea Ondansetron HCl 4 mg 04/06/18 15:16 Zofran Tab PO Q8 PRN Nausea/Vomiting Trazodone HCl 100 mg 04/06/18 22:00 04/06/18 22:52 Desyrel PO Not Given HS ROBYN Past Psychiatric History - Past Psychiatric History Previous Treatment History: None Pertinent Medical Hx (Current Medical&Sleep Prob, Allergies): Allergies Allergy/AdvReac Type Severity Reaction Status Date / Time No Known Allergies Allergy Verified 04/06/18 12:28 No Known Home Med 02/16/18 Review of Systems - Neurological Neurological: UNREMARKABLE - Psychiatric Psychiatric: Abnormal Sleep Pattern, Anxiety, Difficulty Concentrating. absent : Depression, Hallucinations, Homicidal Ideation, Paranoia, Suicidal Ideation Mental Status Examination - Personal Presentation Personal Presentation: Looks older than stated age (sedated) - Affect Affect: Constricted - Motor Activity Motor Activity: Calm - Reliability in Providing Information Reliability in Providing Information: Fair - Speech Speech: Organized - Mood Mood: Anxious - Formal Thought Process Formal Thought Process: No Impairment - Cognitive Functions Orientation: Person, Place, Situation, Time Sensorium: Drowsy Attention/Concentration: Easily distracted Abstract Thinking: [place] Estimate of Intelligence: Average Memory: Recent intact, as evidence by: Ability to recall events of the day, Remote intact, as evidenced by: Abilit to recall sig. 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 Attend groups and activities Supportive therapy and psychoeducation LA for abstinence CBT for relapse prevention Encourage MAT Refer to rehab or IOP, and self-help groups Smoking cessation with LA Nicotine patch if needed 34 min Projected ELOS: 4-5 days Prognosis: good with MAT or rehab - Smoking Cessation Smoking Cessation Initiated: Yes
[2018-04-08] MEDS: Buprenorphine Hydrochloride 2 mg SL SCH (09:31)
[2018-04-08] MEDS: Pantoprazole 20 mg EC Tab PO SCH (13:21)
--- NOTE | 2018-04-08 14:50 | PCM.PYCHPN ---
Psychiatric Progress Note - Psychiatric Progress Note Patient seen today, length of contact: 15 min Patient Chief Complaint: "My stomach hurts" Problems Identified/Issues Discussed: The pt is seen, chart reviewed, case discussed with staff. The pt is compliant with medications and reports no side-effects. Symptoms are improving but needs more time to stabilize. After care discussed, support and psychoeducation given. He is likely passing kidney stones, support given Consult as needed, surgery pending after detox Medication Change: Yes (detox changes daily) Medical Record Reviewed: Yes Mental Status Examination - Cognitive Function Orientation: Person, Place, Situation, Time Memory: Impaired Attention: Poor Concentration: Poor Association: WNL Fund of Knowledge: Poor - Mood Mood: Anxious - Affect Affect: Constricted - Speech Speech: Appropriate - Formal Thought Process Formal Thought Process: No Impairment - Suicidal Ideation Suicidal Ideation: No - Homicidal Ideation Homicidal Ideation: No Goal/Treatment Plan - Goal/Treatment Plan Need for Continued Stay: Discharge may exacerbated symptoms, Severe functional impairment Progress Toward Problem(s) and Goals/Treatment Plan: Taper with subutex Gabapentin for augmentation Cipro for UTI As needed medications All risks, benefits and alternatives of the meds discussed, and the pt agreed and understood. Attend groups and activities Supportive therapy and psychoeducation PA for abstinence CBT for relapse prevention Encourage MAT Refer to rehab or IOP, and self-help groups Smoking cessation with PA Nicotine patch if needed Estimated Date of D/C: 04/11/18
[2018-04-09 08:47] LABS: EOS # 0.1 K/uL (0.0-0.7); HEMOGLOBIN 10.4 g/dL (12.0-18.0); MEAN CORPUSCULAR HEMOGLOBIN 32.9 pg (27.0-31.0); MONO # 0.4 K/uL (0.0-0.8); NRBC % 0.1 % (0.0-2.0)
[2018-04-09 08:48] LABS: BASO % 1.2 % (0.0-2.0); EOS % 3.5 % (0.0-4.0); LYMPH # 0.7 K/uL (1.0-4.3); LYMPH % 22.2 % (20.0-40.0); MEAN CELL VOLUME 94.6 fL (80.0-94.0); MEAN CORPUSCULAR HGB CONC 34.8 g/dL (33.0-37.0); MEAN PLATELET VOLUME 11.8 fL (7.2-11.7); NEUT # 1.9 K/uL (1.8-7.0); NEUT % 61.1 % (50.0-75.0); RBC 3.15 Mil/uL (4.40-5.90); RED CELL DISTRIBUTION WIDTH 16.3 % (11.5-14.5); WHITE BLOOD COUNT 3.1 K/uL (4.8-10.8)
[2018-04-09 09:11] LABS: ALB/GLOB RATIO 0.5 (1.0-2.1); ALBUMIN 1.9 g/dL (3.5-5.0); ALT/SGPT 105 U/L (21-72); AMYLASE 67 U/L (30-110); AST/SGOT 217 U/L (17-59); BLOOD UREA NITROGEN 14 mg/dL (9-20); CALCIUM 7.4 mg/dl (8.6-10.4); GFR AFRICAN-AMERICAN > 60; GFR NON-AFRICAN AMERICAN > 60; LIPASE 213 U/L (23-300)
--- NOTE | 2018-04-09 10:53 | PCM.PYCHPN ---
Psychiatric Progress Note - Psychiatric Progress Note Patient seen today, length of contact: 15 min Problems Identified/Issues Discussed: Consulted medicine team due to pancytopenia Medication Change: Yes (detox changes daily) Medical Record Reviewed: Yes Mental Status Examination - Cognitive Function Orientation: Person, Place, Situation, Time Memory: Impaired Attention: Poor Concentration: Poor Association: WNL Fund of Knowledge: Poor - Mood Mood: Anxious - Affect Affect: Constricted - Speech Speech: Appropriate - Formal Thought Process Formal Thought Process: No Impairment - Suicidal Ideation Suicidal Ideation: No - Homicidal Ideation Homicidal Ideation: No Goal/Treatment Plan - Goal/Treatment Plan Need for Continued Stay: Discharge may exacerbated symptoms, Severe functional impairment Progress Toward Problem(s) and Goals/Treatment Plan: Continue current medication Supportive therapy provided Attend groups and activities daily Consulted medicine team due to pancytopenia Will f/u with medicine team recommendations. After care planning by TONY Estimated Date of D/C: 04/11/18
[2018-04-09] MEDS: Pantoprazole 20 mg EC Tab PO SCH (10:56)
[2018-04-09] MEDS: Buprenorphine Hydrochloride 2 mg SL SCH (10:57)
--- NOTE | 2018-04-09 15:06 | CP.PCM.CON ---
<Marilyn Luba OWENS - Last Filed: 04/09/18 15:00> History of Present Illness - History of Present Illness History of Present Illness: Patient is a 47 year old male with PMHx of nephrolithiasis, Hepatitis C, leukopenia and substance abuse. Patient is currently being hospitalized in detox unit for alcohol and heroin detox. Patient admits to drinking 10 60-oz beers a day intermittently for the past few years as well as injecting 20 bags of heroin daily. Patient states he was told he needs to detox from alcohol so he can be treated for his Hepatitis C. Patient denies history of HIV. He states he has been told for some time that he has "low blood counts." Patient states he is supposed to have surgery later next week for removal of kidney stones. Patient does not recall name of urologist, but states he is located in [place]. Patient reports prior history of surgical intervention for stones but does not know exact procedure. Patient states he wants to go to [facility] after his surgery. Patient reports only complaint currently is generalized fatigue and discomfort from his detox. Medicine team consulted for leukopenia. PMD: Lito Allergies: denies PMHx: leukopenia, nephrolithiasis, Hepatitis C PSHx: intervention for nephrolithiasis FamHx: denies Social: drinks 10 60-oz beers daily, uses 20 bags heroin daily IV Review of Systems - Constitutional Constitutional: Fatigue - EENT Eyes: absent: Change in Vision - Cardiovascular Cardiovascular: absent: Chest Pain, Dyspnea - Respiratory Respiratory: absent: Cough, Dyspnea - Gastrointestinal Gastrointestinal: absent: Nausea, Vomiting - Genitourinary Genitourinary: absent: Dysuria - Musculoskeletal Musculoskeletal: absent: Back Pain - Integumentary Integumentary: absent: Dry Skin - Neurological Neurological: absent: Dizziness, Weakness Past Patient History - Infectious Disease Hx of Infectious Diseases: None - Past Medical History & Family History Past Medical History?: Yes - Past Social History Smoking Status: Heavy Smoker > 10 Cigarettes Daily - CARDIAC Hx Hypertension: No - PULMONARY Hx Asthma: Yes - NEUROLOGICAL Hx Seizures: No - HEENT Hx HEENT Problems: No - RENAL Hx Chronic Kidney Disease: No Hx Kidney Stones: Yes - ENDOCRINE/METABOLIC Hx Endocrine Disorders: No - HEMATOLOGICAL/ONCOLOGICAL Hx Human Immunodeficiency Virus (HIV): No - INTEGUMENTARY Hx Dermatological Problems: No - MUSCULOSKELETAL/RHEUMATOLOGICAL Hx Falls: No - GASTROINTESTINAL Other/Comment: right groin hernia - GENITOURINARY/GYNECOLOGICAL Hx Sexually Transmitted Disorders: No - PSYCHIATRIC Hx Substance Use: Yes - SURGICAL HISTORY Hx Coronary Stent: No - ANESTHESIA Hx Anesthesia: Yes Hx Anesthesia Reactions: No Hx Malignant Hyperthermia: No Meds Allergies/Adverse Reactions: Allergies Allergy/AdvReac Type Severity Reaction Status Date / Time No Known Allergies Allergy Verified 04/06/18 12:28 - Medications Medications: Current Medications Al Hydrox/Mg Hydrox/Simethicone (Maalox 30 Ml) 30 ml PO TID PRN PRN Reason: Indigestion / Heartburn Last Admin: 04/08/18 09:31 Dose: 30 ml Albuterol (Ventolin Hfa 90 Mcg/Actuation (8 G)) 1 puff INH RQ6 PRN PRN Reason: SOB Last Admin: 04/07/18 23:33 Dose: 1 puff Buprenorphine HCl (Subutex) 4 mg SL DAILY [facility] PRN Reason: Taper Stop: 04/12/18 09:59 Last Admin: 04/09/18 10:57 Dose: 4 mg Clonidine HCl (Catapres) 0.1 mg PO Q8 PRN PRN Reason: COWS Score More or Equal to 5 Cyclobenzaprine HCl (Flexeril) 5 mg PO TID [facility] Last Admin: 04/09/18 13:49 Dose: 5 mg Dicyclomine HCl (Bentyl) 10 mg PO Q6H PRN PRN Reason: muscle spasms Last Admin: 04/08/18 13:21 Dose: 10 mg Gabapentin (Neurontin) 300 mg PO TID [facility] Last Admin: 04/09/18 13:49 Dose: 300 mg Hydroxyzine HCl (Atarax) 50 mg PO Q6H PRN PRN Reason: Anxiety Last Admin: 04/08/18 00:28 Dose: 50 mg Ibuprofen (Motrin Tab) 600 mg PO Q6H PRN PRN Reason: Pain, moderate (4-7) Loperamide HCl (Imodium) 2 mg PO Q8 PRN PRN Reason: Diarrhea Last Admin: 04/08/18 09:31 Dose: 2 mg Ondansetron HCl (Zofran Tab) 4 mg PO Q8 PRN PRN Reason: Nausea/Vomiting Pantoprazole Sodium (Protonix Ec Tab) 20 mg PO DAILY [facility] Last Admin: 04/09/18 10:56 Dose: 20 mg Quetiapine Fumarate (Seroquel) 100 mg PO HS [facility] Last Admin: 04/08/18 21:29 Dose: 100 mg Trazodone HCl (Desyrel) 100 mg PO HS [facility] Last Admin: 04/08/18 21:29 Dose: 100 mg Physical Exam - Constitutional Appears: Older Than Stated Age, Chronically Ill - Head Exam Head Exam: ATRAUMATIC, NORMOCEPHALIC - Eye Exam Eye Exam: EOMI - ENT Exam ENT Exam: Mucous Membranes Moist - Respiratory Exam Respiratory Exam: Clear to Auscultation Bilateral - Cardiovascular Exam Cardiovascular Exam: +S1, +S2 - GI/Abdominal Exam GI & Abdominal Exam: Normal Bowel Sounds, Soft - Extremities Exam Additional comments: track ayala right antecubital fossa - Neurological Exam Neurological exam: Alert - Skin Skin Exam: Warm Results - Vital Signs Recent Vital Signs: Last Vital Signs Temp 98.6 F 04/09/18 14:20 Pulse 86 04/09/18 14:20 Resp 18 04/09/18 14:20 BP 117/68 04/09/18 14:20 Pulse Ox 100 04/09/18 14:20 - Labs Result Diagrams: 04/09/18 08:43 04/09/18 08:43 Labs: Laboratory Results - last 24 hr 04/06/18 04/09/18 04/09/18 15:49 08:43 08:43 WBC 3.1 L RBC 3.15 L Hgb 10.4 L Hct 29.8 L MCV 94.6 H MCH 32.9 H MCHC 34.8 RDW 16.3 H Plt Count 48 L MPV 11.8 H Neut % (Auto) 61.1 Lymph % (Auto) 22.2 [place] % (Auto) 12.0 H Eos % (Auto) 3.5 Baso % (Auto) 1.2 Neut # (Auto) 1.9 Lymph # (Auto) 0.7 L [place] # (Auto) 0.4 Eos # (Auto) 0.1 Baso # (Auto) 0.0 Sodium 139 Potassium 4.0 Chloride 112 H Carbon Dioxide 23 Anion Gap 9 L BUN 14 Creatinine 0.9 Est GFR ( Amer) > 60 Est GFR (Non-Af Amer) > 60 Random Glucose 84 Calcium 7.4 L Total Bilirubin 2.9 H AST 217 H ALT 105 H Alkaline Phosphatase 132 H Total Protein 5.8 L Albumin 1.9 L D Globulin 3.8 Albumin/Globulin Ratio 0.5 L Amylase 67 Lipase 213 C.trachomatis RNA (TMA) Not detected N.gonorrhoeae RNA (TMA) Not detected Assessment & Plan - Assessment and Plan (Free Text) Assessment: Medicine consult for 47 year old male admitted for alcohol and heroin detox, found to have leukopenia on admitting blood work Leukopenia patient admits to history of leukopenia 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 Case discussed with attending, Dr. Malloy. <Ben Malloy - Last Filed: 04/13/18 16:21> Meds - Medications Medications: Current Medications Al Hydrox/Mg Hydrox/Simethicone (Maalox 30 Ml) 30 ml PO TID PRN PRN Reason: Indigestion / Heartburn Last Admin: 04/08/18 09:31 Dose: 30 ml Albuterol (Ventolin Hfa 90 Mcg/Actuation (8 G)) 1 puff INH RQ6 PRN PRN Reason: SOB Last Admin: 04/07/18 23:33 Dose: 1 puff Benztropine Mesylate (Cogentin) 1 mg PO DAILY [facility] Last Admin: 04/13/18 10:25 Dose: Not Given Clonidine HCl (Catapres) 0.1 mg PO Q8 PRN PRN Reason: COWS Score More or Equal to 5 Cyclobenzaprine HCl (Flexeril) 5 mg PO TID [facility] Last Admin: 04/13/18 13:57 Dose: Not Given Dicyclomine HCl (Bentyl) 10 mg PO Q6H PRN PRN Reason: muscle spasms Last Admin: 04/08/18 13:21 Dose: 10 mg Folic Acid (Folic Acid) 1 mg PO DAILY [facility] Last Admin: 04/13/18 10:22 Dose: 1 mg Gabapentin (Neurontin) 300 mg PO TID [facility] Last Admin: 04/13/18 13:57 Dose: Not Given Haloperidol (Haldol) 5 mg PO BID [facility] Last Admin: 04/13/18 10:23 Dose: 5 mg Haloperidol Lactate (Haldol) 5 mg IM Q6 PRN PRN Reason: Agitation Hydroxyzine HCl (Atarax) 50 mg PO Q6H PRN PRN Reason: Anxiety Last Admin: 04/11/18 10:01 Dose: 50 mg Multivitamins/Vitamin C 10 ml/Thiamine HCl 100 mg/ Folic Acid 1 mg/ Sodium Chloride 1,011.2 mls @ 40 mls/hr IV .Q24H ONE Stop: 04/13/18 20:59 Last Admin: 04/12/18 20:57 Dose: 40 mls/hr Lactulose (Enulose) 30 gm PO TID [facility] Last Admin: 04/13/18 13:57 Dose: Not Given Loperamide HCl (Imodium) 2 mg PO Q8 PRN PRN Reason: Diarrhea Last Admin: 04/08/18 09:31 Dose: 2 mg Lorazepam (Ativan) 2 mg IVP Q6H PRN PRN Reason: Anxiety Last Admin: 04/13/18 04:39 Dose: 2 mg Multivitamins (Hexavitamin) 1 tab PO DAILY [facility] Last Admin: 04/13/18 10:22 Dose: 1 tab Ondansetron HCl (Zofran Tab) 4 mg PO Q8 PRN PRN Reason: Nausea/Vomiting Pantoprazole Sodium (Protonix Ec Tab) 20 mg PO DAILY [facility] Last Admin: 04/13/18 10:22 Dose: 20 mg Quetiapine Fumarate (Seroquel) 100 mg PO [facility] Last Admin: 04/12/18 22:00 Dose: Not Given Rifaximin (Xifaxan) 550 mg PO BID [facility] PRN Reason: Protocol Last Admin: 04/13/18 10:24 Dose: 550 mg Thiamine HCl (Vitamin B1 Tab) 100 mg PO DAILY [facility] Last Admin: 04/13/18 10:22 Dose: 100 mg Trazodone HCl (Desyrel) 100 mg PO [facility] Last Admin: 04/12/18 22:01 Dose: Not Given Results - Vital Signs Recent Vital Signs: Last Vital Signs Temp 98.8 F 04/13/18 16:00 Pulse 96 H 04/13/18 16:00 Resp 20 04/13/18 16:00 BP 128/69 04/13/18 16:00 Pulse Ox 97 04/13/18 16:00 - Labs Result Diagrams: 04/13/18 08:55 04/13/18 08:55 Labs: Laboratory Results - last 24 hr 04/13/18 04/13/18 04/13/18 08:55 08:55 08:55 WBC 3.0 L RBC 3.23 L Hgb 10.7 L Hct 31.1 L MCV 96.0 H MCH 33.1 H MCHC 34.5 RDW 16.4 H Plt Count 52 L MPV 11.9 H Neut % (Auto) 67.7 Lymph % (Auto) 21.2 [place] % (Auto) 7.6 Eos % (Auto) 3.2 Baso % (Auto) 0.3 Neut # (Auto) 2.0 Lymph # (Auto) 0.6 L [place] # (Auto) 0.2 Eos # (Auto) 0.1 Baso # (Auto) 0.0 PT INR Sodium 142 Potassium 4.1 Chloride 111 H Carbon Dioxide 22 Anion Gap 13 BUN 17 Creatinine 0.8 Est GFR ( Amer) > 60 Est GFR (Non-Af Amer) > 60 Random Glucose 110 Calcium 7.8 L Total Bilirubin 4.4 H AST 371 H ALT 151 H Alkaline Phosphatase 114 Ammonia 80 H D Total Protein 6.3 Albumin 2.1 L Globulin 4.1 H Albumin/Globulin Ratio 0.5 L Alpha Fetoprotein Carcinoembryonic Ag 7.3 H 04/13/18 04/13/18 08:55 08:55 WBC RBC Hgb Hct MCV MCH MCHC RDW Plt Count MPV Neut % (Auto) Lymph % (Auto) [place] % (Auto) Eos % (Auto) Baso % (Auto) Neut # (Auto) Lymph # (Auto) [place] # (Auto) Eos # (Auto) Baso # (Auto) PT 23.9 H INR 2.2 Sodium Potassium Chloride Carbon Dioxide Anion Gap BUN Creatinine Est GFR ( Amer) Est GFR (Non-Af Amer) Random Glucose Calcium Total Bilirubin AST ALT Alkaline Phosphatase Ammonia Total Protein Albumin Globulin Albumin/Globulin Ratio Alpha Fetoprotein 4.3 Carcinoembryonic Ag Attending/Attestation - Attestation I have personally seen and examined this patient.: Yes I have fully participated in the care of the patient.: Yes I have reviewed all pertinent clinical information: Yes Notes (Text): seen and examined 1.Substance abuse 2.Leukopenia assessment and the plan discussed and I agree with the resident's documentation
[2018-04-10 08:12] LABS: BASO % 0.6 % (0.0-2.0); EOS # 0.1 K/uL (0.0-0.7); EOS % 3.6 % (0.0-4.0); HEMOGLOBIN 10.6 g/dL (12.0-18.0); LYMPH # 0.7 K/uL (1.0-4.3); LYMPH % 23.4 % (20.0-40.0); MEAN CELL VOLUME 95.2 fL (80.0-94.0); MEAN CORPUSCULAR HEMOGLOBIN 32.6 pg (27.0-31.0); MEAN CORPUSCULAR HGB CONC 34.2 g/dL (33.0-37.0); MEAN PLATELET VOLUME 10.8 fL (7.2-11.7); MONO # 0.3 K/uL (0.0-0.8); MONO % 10.3 % (0.0-10.0); NEUT % 62.1 % (50.0-75.0); NRBC % 0.1 % (0.0-2.0); RBC 3.24 Mil/uL (4.40-5.90); RED CELL DISTRIBUTION WIDTH 15.5 % (11.5-14.5); WHITE BLOOD COUNT 3.2 K/uL (4.8-10.8)
[2018-04-10 08:38] LABS: ALB/GLOB RATIO 0.5 (1.0-2.1); ALBUMIN 2.1 g/dL (3.5-5.0); ALT/SGPT 129 U/L (21-72); AST/SGOT 305 U/L (17-59); BLOOD UREA NITROGEN 15 mg/dL (9-20); CALCIUM 7.7 mg/dl (8.6-10.4); GFR AFRICAN-AMERICAN > 60; GFR NON-AFRICAN AMERICAN > 60
[2018-04-10] MEDS: Pantoprazole 20 mg EC Tab PO SCH (10:13)
[2018-04-10] MEDS: Buprenorphine Hydrochloride 2 mg SL SCH (10:13)
--- NOTE | 2018-04-10 10:26 | PCM.PYCHPN ---
Psychiatric Progress Note - Psychiatric Progress Note Patient seen today, length of contact: 15 min Patient Chief Complaint: "I have shakes" Problems Identified/Issues Discussed: Pt was seen and evaluated. Chart reviewed. Appreciate medicine team consult. Pt is a poor historian. He reported that he was drinking alcohol on daily basis, later stated that he drinks every other day. He still has opioid withdrawal symptoms. He needs time to stabilize. Pt is compliant with his meds and denied side effects. DSM 5 Symptoms Update: Opiodi use disorder, severe, dependence Opioid withdrawal ALCOHOL USE Disorder Hep C Hepatic encephalopathy Medication Change: Yes (detox changes daily) Medical Record Reviewed: Yes Mental Status Examination - Cognitive Function Orientation: Person, Place, Situation, Time Memory: Impaired Attention: Poor Concentration: Poor Association: WNL Fund of Knowledge: Poor Decription of patient's judgement and insights: limited/limited - Mood Mood: Anxious - Affect Affect: Constricted - Speech Speech: Appropriate - Formal Thought Process Formal Thought Process: No Impairment Psychotic Thoughts and Behaviors: denied - Suicidal Ideation Suicidal Ideation: No Plan: denied - Homicidal Ideation Homicidal Ideation: No Plan: denied Goal/Treatment Plan - Goal/Treatment Plan Need for Continued Stay: Discharge may exacerbated symptoms, Severe functional impairment Progress Toward Problem(s) and Goals/Treatment Plan: Continue current medication Start Ativan protocol Supportive therapy provided Attend groups and activities daily Appreciate medicine team recommendations. After care planning by TONY Estimated Date of D/C: 04/11/18
[2018-04-10] MEDS: Multiple Vitamins Tab PO SCH (11:11)
--- NOTE | 2018-04-10 11:27 | CP.PCM.PN ---
Addendum entered and electronically signed by Luba Sanders DO, DO 11:40: History Hepatitis C: will check CT abdomen without PO or IV contrast to check for ascites. Original Note: <Luba Sanders DO - Last Filed: 04/10/18 11:11> Subjective - Date & Time of Evaluation Date of Evaluation: 04/10/18 Time of Evaluation: 11:11 - Subjective Subjective: Medicine progress note for Dr. Hylton's service: Patient seen and examined. Patient laying in bed and states he has generalized body aches due to his detox. Patient states he is walking around detox unit and denies issues with ambulating. Patient states he feels his abdomen is distended today. He reports BM this morning. He also complains of occasional leg swelling in the past, but denies issues currently. Objective - Vital Signs/Intake and Output Vital Signs (last 24 hours): Temp Pulse Resp BP Pulse Ox 99 F 90 20 134/79 97 04/10/18 08:57 04/10/18 08:57 04/10/18 08:57 04/10/18 08:57 04/10/18 08:57 - Medications Medications: Current Medications Al Hydrox/Mg Hydrox/Simethicone (Maalox 30 Ml) 30 ml PO TID PRN PRN Reason: Indigestion / Heartburn Last Admin: 04/08/18 09:31 Dose: 30 ml Albuterol (Ventolin Hfa 90 Mcg/Actuation (8 G)) 1 puff INH RQ6 PRN PRN Reason: SOB Last Admin: 04/07/18 23:33 Dose: 1 puff Buprenorphine HCl (Subutex) 2 mg SL DAILY [facility] PRN Reason: Taper Stop: 04/12/18 09:59 Last Admin: 04/10/18 10:13 Dose: 2 mg Clonidine HCl (Catapres) 0.1 mg PO Q8 PRN PRN Reason: COWS Score More or Equal to 5 Cyclobenzaprine HCl (Flexeril) 5 mg PO TID [facility] Last Admin: 04/10/18 10:13 Dose: 5 mg Dicyclomine HCl (Bentyl) 10 mg PO Q6H PRN PRN Reason: muscle spasms Last Admin: 04/08/18 13:21 Dose: 10 mg Folic Acid (Folic Acid) 1 mg PO DAILY [facility] Gabapentin (Neurontin) 300 mg PO TID [facility] Last Admin: 04/10/18 10:13 Dose: 300 mg Hydroxyzine HCl (Atarax) 50 mg PO Q6H PRN PRN Reason: Anxiety Last Admin: 04/09/18 21:09 Dose: 50 mg Ibuprofen (Motrin Tab) 600 mg PO Q6H PRN PRN Reason: Pain, moderate (4-7) Loperamide HCl (Imodium) 2 mg PO Q8 PRN PRN Reason: Diarrhea Last Admin: 04/08/18 09:31 Dose: 2 mg Lorazepam (Ativan) 2 mg PO Q4 [facility] PRN Reason: Taper Stop: 04/14/18 10:29 Multivitamins (Hexavitamin) 1 tab PO DAILY [facility] Ondansetron HCl (Zofran Tab) 4 mg PO Q8 PRN PRN Reason: Nausea/Vomiting Pantoprazole Sodium (Protonix Ec Tab) 20 mg PO DAILY [facility] Last Admin: 04/10/18 10:13 Dose: 20 mg Quetiapine Fumarate (Seroquel) 100 mg PO [facility] Last Admin: 04/09/18 21:09 Dose: 100 mg Thiamine HCl (Vitamin B1 Tab) 100 mg PO DAILY [facility] Trazodone HCl (Desyrel) 100 mg PO [facility] Last Admin: 04/09/18 21:09 Dose: 100 mg - Labs Labs: 04/10/18 07:59 04/10/18 07:59 - Constitutional Appears: No Acute Distress, Chronically Ill - Head Exam Head Exam: ATRAUMATIC, NORMOCEPHALIC - Eye Exam Eye Exam: EOMI. absent: Scleral icterus - ENT Exam ENT Exam: Mucous Membranes Moist - Respiratory Exam Respiratory Exam: Clear to Ausculation Bilateral, NORMAL BREATHING PATTERN - Cardiovascular Exam Cardiovascular Exam: +S1, +S2 - GI/Abdominal Exam GI & Abdominal Exam: Distended, Soft, Normal Bowel Sounds. absent: Firm, Guarding, Rigid, Tenderness Additional comments: small umbilical hernia present with cough - Extremities Exam Extremities Exam: Normal Inspection. absent: Calf Tenderness - Neurological Exam Neurological Exam: Alert, Awake - Skin Skin Exam: Warm Assessment and Plan - Assessment and Plan (Free Text) Assessment: Medicine consult for 47 year old male admitted for alcohol and heroin detox, found to have leukopenia on admitting blood work Leukopenia likely secondary to bone marrow suppression from chronic alcohol abuse 04/10/18: WBC 3.2/ Hgb 10.6/ Plt 46 review of past blood work: WBC count that is 2.1-3.2 range past hgb: 9.3-10.8 platelet: 35-48 will continue to monitor Alcohol/ Heroin abuse will check HIV due to history IVDA- pending continue alcohol and heroin detox per psychiatry detox team will check INR and ammonia level LFTs elevated lipase 213 UTI yeast species isolated from urine culture, 10-50,000 colony count will stop cipro GC/CT negative continue to monitor, patient asymptomatic <Jian Hylton H - Last Filed: 04/10/18 12:24> Objective - Vital Signs/Intake and Output Vital Signs (last 24 hours): Temp Pulse Resp BP Pulse Ox 99 F 90 20 134/79 97 04/10/18 08:57 04/10/18 08:57 04/10/18 08:57 04/10/18 08:57 04/10/18 08:57 - Medications Medications: Current Medications Al Hydrox/Mg Hydrox/Simethicone (Maalox 30 Ml) 30 ml PO TID PRN PRN Reason: Indigestion / Heartburn Last Admin: 04/08/18 09:31 Dose: 30 ml Albuterol (Ventolin Hfa 90 Mcg/Actuation (8 G)) 1 puff INH RQ6 PRN PRN Reason: SOB Last Admin: 04/07/18 23:33 Dose: 1 puff Buprenorphine HCl (Subutex) 2 mg SL DAILY [facility] PRN Reason: Taper Stop: 04/12/18 09:59 Last Admin: 04/10/18 10:13 Dose: 2 mg Clonidine HCl (Catapres) 0.1 mg PO Q8 PRN PRN Reason: COWS Score More or Equal to 5 Cyclobenzaprine HCl (Flexeril) 5 mg PO TID [facility] Last Admin: 04/10/18 10:13 Dose: 5 mg Dicyclomine HCl (Bentyl) 10 mg PO Q6H PRN PRN Reason: muscle spasms Last Admin: 04/08/18 13:21 Dose: 10 mg Folic Acid (Folic Acid) 1 mg PO DAILY [facility] Last Admin: 04/10/18 11:10 Dose: 1 mg Gabapentin (Neurontin) 300 mg PO TID [facility] Last Admin: 04/10/18 10:13 Dose: 300 mg Hydroxyzine HCl (Atarax) 50 mg PO Q6H PRN PRN Reason: Anxiety Last Admin: 04/09/18 21:09 Dose: 50 mg Ibuprofen (Motrin Tab) 600 mg PO Q6H PRN PRN Reason: Pain, moderate (4-7) Loperamide HCl (Imodium) 2 mg PO Q8 PRN PRN Reason: Diarrhea Last Admin: 04/08/18 09:31 Dose: 2 mg Lorazepam (Ativan) 2 mg PO Q4 [facility] PRN Reason: Taper Stop: 04/14/18 10:29 Last Admin: 04/10/18 11:10 Dose: 2 mg Multivitamins (Hexavitamin) 1 tab PO DAILY [facility] Last Admin: 04/10/18 11:11 Dose: 1 tab Ondansetron HCl (Zofran Tab) 4 mg PO Q8 PRN PRN Reason: Nausea/Vomiting Pantoprazole Sodium (Protonix Ec Tab) 20 mg PO DAILY [facility] Last Admin: 04/10/18 10:13 Dose: 20 mg Quetiapine Fumarate (Seroquel) 100 mg PO HS [facility] Last Admin: 04/09/18 21:09 Dose: 100 mg Thiamine HCl (Vitamin B1 Tab) 100 mg PO DAILY [facility] Last Admin: 04/10/18 11:10 Dose: 100 mg Trazodone HCl (Desyrel) 100 mg PO HS [facility] Last Admin: 04/09/18 21:09 Dose: 100 mg - Labs Labs: 04/10/18 07:59 04/10/18 07:59 Attending/Attestation - Attestation I have personally seen and examined this patient.: Yes I have fully participated in the care of the patient.: Yes I have reviewed all pertinent clinical information, including history, physical exam and plan: Yes Notes (Text): 04/10/18 12:21 Medical attending: Patient was seen and examined by me. Agree with the above note by the resident The patient has a history of hepatitis C and also an extensive history of alcohol use. We are getting a CT of the abdomen and pelvis to assess for ascities as well as cirrhosis of the liver. I told the patient I would be suprised if there was not some damage seen on the CT of the liver. Also check an INR - I expect it to be elevated Also ammonia level - his mental status is quite good when I saw him. I was able to have a normal conversation - however should he become alter then we should give lactulose and xifaxan. On exam he has some sceral incterus and there seems to be some minimal ascities as well. Not to the level that needs a paracentesis but I did tell the patient that in the future if he keeps drinking what can happen thank you Jian Hylton
--- NOTE | 2018-04-10 14:03 | CT ---
PROCEDURE: CT abdomen pelvis dated some 04/10/2018 HISTORY: History Hep C, r/o ascites COMPARISON: Comparison made with prior CT scan abdomen pelvis dated 09/21/2017. TECHNIQUE: Contiguous axial images of the abdomen and pelvis performed without oral or intravenous contrast material. Additional 2D sagittal and coronal reformats generated. Radiation dose: Total exam DLP = 378.82 mGy-cm. This CT exam was performed using one or more of the following dose reduction techniques: Automated exposure control, adjustment of the mA and/or kV according to patient size, and/or use of iterative reconstruction technique. Note that these examination is limited due to the lack of oral and intravenous contrast material as well as a paucity of intraperitoneal and retroperitoneal fat. FINDINGS: LOWER THORAX: Heart is enlarged. No significant pericardial effusion. There are mild atelectatic and or scarring changes both lung bases including the middle lobe and lingular regions. Tiny calcific density within the scar left lingular region consistent with postinflammatory sequela however the possibility of prior exposure to granulomatous disease process not excluded. Questionable trace left-sided effusion. Changes of gynecomastia. . LIVER: The liver exhibits normal size measuring just over 15 cm in CC dimension and exhibits somewhat heterogeneous attenuation pattern. . Liver demonstrates what appears represent a micro nodular surface contour suggesting hepatic cirrhosis. There is a moderate amount of abdominal and pelvic ascites present as well. GALLBLADDER AND BILE DUCTS: Gallbladder appears incompletely distended which may in part account for thick-walled appearance however pericholecystic fluid/ ascites may contribute. No definitive evidence of intraluminal calculi. . PANCREAS: Pancreas is not optimally visualized. No obvious large pancreatic masses, collections or calcification SPLEEN: Spleen is markedly enlarged measuring over 20 cm CC dimension. Questionable varices in the splenic hilar region. ADRENALS: No gross adrenal lesions are identified however the adrenal glands poorly seen KIDNEYS AND URETERS: Right kidney unremarkable. Re- demonstrated is enlarged on left kidney with dilatation of the left renal collecting system and caliectasis likely secondary to a proximal marty UPJ calculus that measures approximately 14 mm. There heart to calculus seen in the lower pole collecting system the largest somewhat triangular in shape measuring approximately 10 mm and the 2nd measuring approximately 3.85 mm. BLADDER: Urinary bladder is incompletely distended which may in part account thick-walled appearance. Muscular hypertrophy may contribute. The possibility of a cystitis should be excluded . Correlation with urinalysis recommended. REPRODUCTIVE: Prostate gland measures approximately 4.2 cm in transverse dimension. Prostatic calcifications are present. APPENDIX: Unremarkable. BOWEL: The evaluation of the bowel is limited due to the lack of oral contrast. The stomach is distended with food debris. . There are a few minimally distended loops of proximal small bowel nonspecific. Most the remaining small bowel exhibits relatively normal contour and caliber. Moderate amount of stool seen within the cecum and ascending, transverse and proximal descending colon consistent with mild fecal retention/constipation. PERITONEUM: Unremarkable. No fluid collection. No free air. There is a moderately large size fluid filled right inguinal hernia. Tiny left-sided fluid-filled inguinal hernia is felt to be present. . LYMPH NODES: Evaluation for adenopathy limited . Questionable on mesenteric adenopathy VASCULATURE: Unremarkable. No aortic aneurysm. BONES: No fracture or destructive lesion. OTHER FINDINGS: None. IMPRESSION: Findings suggest hepatic cirrhosis. Moderate amount of abdominal and pelvic ascites. Marked splenomegaly. Questionable perisplenic varices. There is a 14 mm calculus presumably within the left the the UPJ/ distal left renal pelvis with dilatation of the left renal collecting system and caliectasis. Two additional nonobstructing calculi lower pole collecting system left kidney. Gallbladder is incompletely distended with mild thick-walled appearance likely due to incomplete distention secondary as well as abdominal ascites. No obvious intraluminal gallbladder calculi. Fluid-filled moderate size right inguinal hernia. There also appears be a tiny at fluid-filled left inguinal hernia. .
[2018-04-10 17:43] LABS: INR 2.1; PROTHROMBIN TIME 22.8 SECONDS (9.7-12.2)
[2018-04-11 07:37] LABS: EOS # 0.1 K/uL (0.0-0.7); MEAN CELL VOLUME 94.5 fL (80.0-94.0); MEAN CORPUSCULAR HGB CONC 34.9 g/dL (33.0-37.0); MONO # 0.3 K/uL (0.0-0.8); NRBC % 0.1 % (0.0-2.0)
[2018-04-11 07:41] LABS: ALB/GLOB RATIO 0.5 (1.0-2.1); ALBUMIN 2.1 g/dL (3.5-5.0); ALT/SGPT 133 U/L (21-72); AST/SGOT 329 U/L (17-59); BILIRUBIN,DIRECT 2.2 mg/dL (0.0-0.4); BLOOD UREA NITROGEN 17 mg/dL (9-20); CALCIUM 7.6 mg/dl (8.6-10.4); GFR AFRICAN-AMERICAN > 60; GFR NON-AFRICAN AMERICAN > 60
[2018-04-11 07:56] LABS: BASO % 0.3 % (0.0-2.0); EOS % 3.1 % (0.0-4.0); HEMOGLOBIN 10.4 g/dL (12.0-18.0); LYMPH # 0.7 K/uL (1.0-4.3); LYMPH % 21.3 % (20.0-40.0); MEAN CORPUSCULAR HEMOGLOBIN 32.9 pg (27.0-31.0); MEAN PLATELET VOLUME 10.4 fL (7.2-11.7); MONO % 8.3 % (0.0-10.0); NEUT # 2.2 K/uL (1.8-7.0); RBC 3.14 Mil/uL (4.40-5.90); RED CELL DISTRIBUTION WIDTH 16.2 % (11.5-14.5); WHITE BLOOD COUNT 3.3 K/uL (4.8-10.8)
[2018-04-11] MEDS: Multiple Vitamins Tab PO SCH (09:53)
[2018-04-11] MEDS: Pantoprazole 20 mg EC Tab PO SCH (09:53)
[2018-04-11] MEDS: Buprenorphine Hydrochloride 2 mg SL SCH ×2 (09:54→10:05)
--- NOTE | 2018-04-11 10:47 | CT ---
PROCEDURE: CT HEAD WITHOUT CONTRAST. HISTORY: Encephalopathy COMPARISON: None available. TECHNIQUE: Axial computed tomography images were obtained through the head/brain without intravenous contrast. Radiation dose: Total exam DLP = 1040.06 MGy-cm. This CT exam was performed using one or more of the following dose reduction techniques: Automated exposure control, adjustment of the mA and/or kV according to patient size, and/or use of iterative reconstruction technique. FINDINGS: HEMORRHAGE: No intracranial hemorrhage. BRAIN: Muniz-white matter differentiation is preserved. There is no mass, mass effect or abnormal extra-axial fluid collection. There is no territorial infarction. The midline sagittal structures are normal. VENTRICLES: There is mild age advanced global parenchymal volume loss and proportionate enlargement of the ventricles and cortical sulci. CALVARIUM: The skull base and calvarium are normal. PARANASAL SINUSES: Predominantly clear. MASTOID AIR CELLS: Predominantly clear. OTHER FINDINGS: None. IMPRESSION: No acute intracranial abnormality. Mild global parenchymal volume loss, advanced for the patient's age.
--- NOTE | 2018-04-11 11:23 | US ---
HISTORY: transaminitis COMPARISON: CT abdomen and pelvis from 04/11/2018. TECHNIQUE: Sonographic evaluation of the abdomen. FINDINGS: LIVER: Measures 12.2 cm. There is diffuse increased echogenicity, heterogeneous echotexture in the liver with nodular contour. No mass. No intrahepatic bile duct dilatation. GALLBLADDER: There are no gallstones or pericholecystic fluid. The sonographic Arce's sign is negative. There is diffuse gallbladder wall thickening secondary to hepatic disease. COMMON BILE DUCT: Measures 8.4 mm. No stones. No dilatation. PANCREAS: Unremarkable as visualized. No mass. No ductal dilatation. RIGHT KIDNEY: Measures 11.6cm. Normal echogenicity. No calculus, mass, or hydronephrosis. LEFT KIDNEY: Measures 12.8cm. Normal echogenicity. There is mild hydronephrosis. There is a 12 mm nonobstructing stone in the lower pole. SPLEEN: The spleen is markedly enlarged and measures 18.1 cm. Normal echotexture. AORTA: No aneurysmal dilatation. IVC: Unremarkable. OTHER FINDINGS: There is small abdominal ascites IMPRESSION: Small cirrhotic liver and severe splenomegaly. Diffuse dilatation of the common bile duct without evidence for choledocholithiasis. Mild left hydronephrosis and 12 mm nonobstructing stone in the lower pole.
--- NOTE | 2018-04-11 15:59 | CP.PCM.PN ---
<Ben Malloy - Last Filed: 04/11/18 18:49> Objective - Vital Signs/Intake and Output Vital Signs (last 24 hours): Temp Pulse Resp BP Pulse Ox 97.5 F L 101 H 20 126/63 97 04/11/18 15:30 04/11/18 15:30 04/11/18 15:30 04/11/18 15:30 04/11/18 15:30 Intake and Output: 04/11/18 04/11/18 06:59 18:59 Intake Total 100 Balance 100 - Medications Medications: Current Medications Al Hydrox/Mg Hydrox/Simethicone (Maalox 30 Ml) 30 ml PO TID PRN PRN Reason: Indigestion / Heartburn Last Admin: 04/08/18 09:31 Dose: 30 ml Albuterol (Ventolin Hfa 90 Mcg/Actuation (8 G)) 1 puff INH RQ6 PRN PRN Reason: SOB Last Admin: 04/07/18 23:33 Dose: 1 puff Benztropine Mesylate (Cogentin) 1 mg PO DAILY [facility] Buprenorphine HCl (Subutex) 2 mg SL DAILY [facility] PRN Reason: Taper Stop: 04/12/18 09:59 Last Admin: 04/11/18 10:05 Dose: Not Given Clonidine HCl (Catapres) 0.1 mg PO Q8 PRN PRN Reason: COWS Score More or Equal to 5 Cyclobenzaprine HCl (Flexeril) 5 mg PO TID [facility] Last Admin: 04/11/18 14:40 Dose: 5 mg Dicyclomine HCl (Bentyl) 10 mg PO Q6H PRN PRN Reason: muscle spasms Last Admin: 04/08/18 13:21 Dose: 10 mg Folic Acid (Folic Acid) 1 mg PO DAILY [facility] Last Admin: 04/11/18 10:01 Dose: 1 mg Gabapentin (Neurontin) 300 mg PO TID [facility] Last Admin: 04/11/18 14:41 Dose: 300 mg Haloperidol (Haldol) 5 mg PO Q4H PRN PRN Reason: Agitation Haloperidol Lactate (Haldol) 5 mg IVP Q8H PRN PRN Reason: Severe Agitation Hydroxyzine HCl (Atarax) 50 mg PO Q6H PRN PRN Reason: Anxiety Last Admin: 04/11/18 10:01 Dose: 50 mg Lactulose (Enulose) 30 gm PO TID [facility] Last Admin: 04/11/18 14:42 Dose: 30 gm Loperamide HCl (Imodium) 2 mg PO Q8 PRN PRN Reason: Diarrhea Last Admin: 04/08/18 09:31 Dose: 2 mg Lorazepam (Ativan) 1 mg IM Q4H PRN PRN Reason: Severe anxiety Last Admin: 04/11/18 18:25 Dose: 1 mg Multivitamins (Hexavitamin) 1 tab PO DAILY [facility] Last Admin: 04/11/18 09:53 Dose: 1 tab Ondansetron HCl (Zofran Tab) 4 mg PO Q8 PRN PRN Reason: Nausea/Vomiting Pantoprazole Sodium (Protonix Ec Tab) 20 mg PO DAILY [facility] Last Admin: 04/11/18 09:53 Dose: 20 mg Pneumococcal Polyvalent Vaccine (Pneumovax 23 Vaccine) 0.5 ml IM .ONCE ONE Stop: 04/12/18 10:01 Quetiapine Fumarate (Seroquel) [address] [facility] Last Admin: 04/10/18 21:04 Dose: Not Given Rifaximin (Xifaxan) 550 mg PO BID [facility] PRN Reason: Protocol Last Admin: 04/11/18 09:53 Dose: 550 mg Thiamine HCl (Vitamin B1 Tab) 100 mg PO DAILY [facility] Last Admin: 04/11/18 09:53 Dose: 100 mg Trazodone HCl (Desyrel) [address] [facility] Last Admin: 04/10/18 21:04 Dose: Not Given - Labs Labs: 04/11/18 07:16 04/11/18 07:16 PT 22.8 SECONDS (9.7-12.2) H 04/10/18 17:20 INR 2.1 04/10/18 17:20 Attending/Attestation - Attestation I have personally seen and examined this patient.: Yes I have fully participated in the care of the patient.: Yes I have reviewed all pertinent clinical information, including history, physical exam and plan: Yes Notes (Text): Patient was seen and examined by me this afternoon and this evening around 640pm Patient was agitated and confused. He was trying to leave. He is on 1:1. He was agitated after Haldol 5mg IV. we added ativan 1mg IV stat. Security was called due to agitation. $ poin restrain applied. RN was trying to remove restrain he became agitated again. He is abusable with stable vitals. I called his mother. She speaks Malaysian only. Floor was able to translate and talk to her. She is aware of his hep failure and encephalopathy needed 4 point restrain. Patient's mother understand his condition and requesting to keep him at hospital. case discussed with the resident this afternoon We will monitor closely. If he is not eating we will start on fluids <Vickie Cummings - Last Filed: 04/11/18 19:02> Subjective - Date & Time of Evaluation Date of Evaluation: 04/11/18 Time of Evaluation: 15:56 - Subjective Subjective: PGY-[address] Malloy Patient was seen and examined at bedside today. Nurse reports no overnight events. Patient admits wanting to go home. Was agitated and put on 1 to 1 observation. Denies chest pain, shortness of breath, abdominal pain, nausea, vomiting, constipation, diarrhea. Objective - Vital Signs/Intake and Output Vital Signs (last 24 hours): Temp Pulse Resp BP Pulse Ox 97.7 F 78 20 123/70 100 04/11/18 13:39 04/11/18 13:39 04/11/18 13:39 04/11/18 13:39 04/11/18 13:39 - Medications Medications: Current Medications Al Hydrox/Mg Hydrox/Simethicone (Maalox 30 Ml) 30 ml PO TID PRN PRN Reason: Indigestion / Heartburn Last Admin: 04/08/18 09:31 Dose: 30 ml Albuterol (Ventolin Hfa 90 Mcg/Actuation (8 G)) 1 puff INH RQ6 PRN PRN Reason: SOB Last Admin: 04/07/18 23:33 Dose: 1 puff Buprenorphine HCl (Subutex) 2 mg SL DAILY [facility] PRN Reason: Taper Stop: 04/12/18 09:59 Last Admin: 04/11/18 10:05 Dose: Not Given Clonidine HCl (Catapres) 0.1 mg PO Q8 PRN PRN Reason: COWS Score More or Equal to 5 Cyclobenzaprine HCl (Flexeril) 5 mg PO TID [facility] Last Admin: 04/11/18 14:40 Dose: 5 mg Dicyclomine HCl (Bentyl) 10 mg PO Q6H PRN PRN Reason: muscle spasms Last Admin: 04/08/18 13:21 Dose: 10 mg Folic Acid (Folic Acid) 1 mg PO DAILY [facility] Last Admin: 04/11/18 10:01 Dose: 1 mg Gabapentin (Neurontin) 300 mg PO TID [facility] Last Admin: 04/11/18 14:41 Dose: 300 mg Haloperidol (Haldol) 5 mg PO Q4H PRN PRN Reason: Agitation Haloperidol Lactate (Haldol) 5 mg IM Q4H PRN PRN Reason: severe agitation Last Admin: 04/11/18 09:01 Dose: 5 mg Hydroxyzine HCl (Atarax) 50 mg PO Q6H PRN PRN Reason: Anxiety Last Admin: 04/11/18 10:01 Dose: 50 mg Lactulose (Enulose) 30 gm PO TID [facility] Last Admin: 04/11/18 14:42 Dose: 30 gm Loperamide HCl (Imodium) 2 mg PO Q8 PRN PRN Reason: Diarrhea Last Admin: 04/08/18 09:31 Dose: 2 mg Lorazepam (Ativan) 1 mg IM Q4H PRN PRN Reason: Severe anxiety Multivitamins (Hexavitamin) 1 tab PO DAILY [facility] Last Admin: 04/11/18 09:53 Dose: 1 tab Ondansetron HCl (Zofran Tab) 4 mg PO Q8 PRN PRN Reason: Nausea/Vomiting Pantoprazole Sodium (Protonix Ec Tab) 20 mg PO DAILY [facility] Last Admin: 04/11/18 09:53 Dose: 20 mg Pneumococcal Polyvalent Vaccine (Pneumovax 23 Vaccine) 0.5 ml IM .ONCE ONE Stop: 04/12/18 10:01 Quetiapine Fumarate (Seroquel) [address] [facility] Last Admin: 04/10/18 21:04 Dose: Not Given Rifaximin (Xifaxan) 550 mg PO BID [facility] PRN Reason: Protocol Last Admin: 04/11/18 09:53 Dose: 550 mg Thiamine HCl (Vitamin B1 Tab) 100 mg PO DAILY [facility] Last Admin: 04/11/18 09:53 Dose: 100 mg Trazodone HCl (Desyrel) [address] [facility] Last Admin: 04/10/18 21:04 Dose: Not Given - Labs Labs: 04/11/18 07:16 04/11/18 07:16 PT 22.8 SECONDS (9.7-12.2) H 04/10/18 17:20 INR 2.1 04/10/18 17:20 - Constitutional Appears: No Acute Distress, Unkempt, Confused - Head Exam Head Exam: ATRAUMATIC, NORMAL INSPECTION, NORMOCEPHALIC - Eye Exam Eye Exam: EOMI, Normal appearance, PERRL - ENT Exam ENT Exam: Mucous Membranes Moist, Normal Exam - Respiratory Exam Respiratory Exam: Clear to Ausculation Bilateral, NORMAL BREATHING PATTERN - Cardiovascular Exam Cardiovascular Exam: REGULAR RHYTHM, +S1, +S2 - GI/Abdominal Exam GI & Abdominal Exam: Soft, Normal Bowel Sounds. absent: Tenderness - Extremities Exam Extremities Exam: Full ROM, Normal Inspection Additional comments: pedal pulses present - Neurological Exam Neurological Exam: Altered Additional comments: oriented to person. unable to identify place or time would follow commands then ignore commands - Psychiatric Exam Psychiatric exam: Agitated - Skin Skin Exam: Dry, Normal Color, Warm Additional comments: obvious track ayala at injection sites Assessment and Plan - Assessment and Plan (Free Text) Plan: Medical consult, now transferred to med/surg 1) Hepatic Encephalopathy Ammonia 7.1 today, 60 yesterday Patient confused Will trend PT, INR, ammonia levels. Lactulose 30gm po tid Rifaximin 550mg po bid 2) Dilated Common Bile Duct Abdominal US (04/11/18): Measures 8.4mm GI consulted - help appreciated 3) Pancytopenia likely secondary to bone marrow suppression from chronic alcohol abuse Continue to trend WBC 3.3 today, trend: 3.2, 3.1, 3.8. Plt 47 today, trend: 46, 48, 46 Hgb 10.4 today, trend: 10.6, 10.4, 10.8 On folate and Vit B Holding EPO since pancytopenia likely due to chronic alcohol use 4) Active substance abuse: Alcohol and Heroin HIV negative continue alcohol and heroin detox per psychiatry detox team LFTs elevated. Trend Haldol for agitation prn per protocol 5) UTI Urine Cx: yeast species, GC/CT negative. Cipro discontinued Patient asymptomatic, continue to monitor. Abd US (04/11/18) 12mm nonobstructing stone in lower pole of left kidney 6) PPx Protonix 20mg po daily Holding anticoagulation due to fall risk, SCDs MVI Vickie Cummings PGY-1. Plan discussed with Dr. Malloy.
--- NOTE | 2018-04-11 20:34 | PCM.PYCHPN ---
Psychiatric Progress Note - Psychiatric Progress Note Patient seen today, length of contact: 15 min Patient Chief Complaint: "I am OK, can I leave?" Problems Identified/Issues Discussed: He is seen, chart reviewed and case discussed He is confused, disoriented and agitated. He doesn't make sense at times He is likely delirious b/c of high ammonia He was asking for d/c but with his confusion, he will jeopardize his life Meds ordered, medical saws him and they agreed to transfer him to the floor Medication Change: Yes (detox changes daily) Medical Record Reviewed: Yes Mental Status Examination - Cognitive Function Orientation: Person, Situation Memory: Impaired Attention: Poor Concentration: Poor Association: Loose Fund of Knowledge: Poor - Mood Mood: Anxious - Affect Affect: Constricted (odd) - Speech Speech: Slurred - Formal Thought Process Formal Thought Process: No Impairment - Suicidal Ideation Suicidal Ideation: No - Homicidal Ideation Homicidal Ideation: No Goal/Treatment Plan - Goal/Treatment Plan Need for Continued Stay: Discharge may exacerbated symptoms, Severe functional impairment, Other (medical) Progress Toward Problem(s) and Goals/Treatment Plan: Delirium: Treat hepatic insufficiency 1:1 Taper with subutex ending Gabapentin for augmentation Cipro for UTI As needed medications All risks, benefits and alternatives of the meds discussed, and the pt agreed and understood. Attend groups and activities Supportive therapy and psychoeducation SC for abstinence CBT for relapse prevention Encourage MAT Refer to rehab or IOP, and self-help groups Smoking cessation with SC Nicotine patch if needed
[2018-04-12 06:42] LABS: INR 2.2; PROTHROMBIN TIME 23.9 SECONDS (9.7-12.2)
[2018-04-12 06:43] LABS: BASO % 0.5 % (0.0-2.0); EOS # 0.1 K/uL (0.0-0.7); EOS % 2.7 % (0.0-4.0); HEMOGLOBIN 10.5 g/dL (12.0-18.0); LYMPH # 0.5 K/uL (1.0-4.3); LYMPH % 16.7 % (20.0-40.0); MEAN CELL VOLUME 95.6 fL (80.0-94.0); MEAN CORPUSCULAR HEMOGLOBIN 32.9 pg (27.0-31.0); MEAN CORPUSCULAR HGB CONC 34.4 g/dL (33.0-37.0); MEAN PLATELET VOLUME 11.1 fL (7.2-11.7); MONO # 0.2 K/uL (0.0-0.8); MONO % 7.2 % (0.0-10.0); NEUT # 2.2 K/uL (1.8-7.0); NEUT % 72.9 % (50.0-75.0); NRBC % 0.1 % (0.0-2.0); RBC 3.2 Mil/uL (4.40-5.90); RED CELL DISTRIBUTION WIDTH 16.2 % (11.5-14.5); WHITE BLOOD COUNT 3.1 K/uL (4.8-10.8)
[2018-04-12 06:49] LABS: ALB/GLOB RATIO 0.5 (1.0-2.1); ALBUMIN 2.1 g/dL (3.5-5.0); ALT/SGPT 153 U/L (21-72); AST/SGOT 385 U/L (17-59); BLOOD UREA NITROGEN 16 mg/dL (9-20); CALCIUM 7.9 mg/dl (8.6-10.4); GFR AFRICAN-AMERICAN > 60; GFR NON-AFRICAN AMERICAN > 60
--- NOTE | 2018-04-12 07:25 | CP.PCM.PN ---
<Vickie Cummings - Last Filed: 04/12/18 11:37> Subjective - Date & Time of Evaluation Date of Evaluation: 04/12/18 Time of Evaluation: 07:22 - Subjective Subjective: PGY-[address] Malloy. Patient was seen and examined today at bedside. Nurse reports agitation and combativeness overnight. Patient remains in 4 point restraints, 1 to 1 observation, and medication prn. Denies chest pain, shortness of breath, abdominal pain, nausea, vomiting, constipation, diarrhea. Objective - Vital Signs/Intake and Output Vital Signs (last 24 hours): Temp Pulse Resp BP Pulse Ox 98.1 F 93 H 20 131/79 96 04/12/18 03:46 04/12/18 03:46 04/12/18 03:46 04/12/18 03:46 04/12/18 03:46 Intake and Output: 04/12/18 04/12/18 06:59 18:59 Intake Total 150 Balance 150 - Medications Medications: Current Medications Al Hydrox/Mg Hydrox/Simethicone (Maalox 30 Ml) 30 ml PO TID PRN PRN Reason: Indigestion / Heartburn Last Admin: 04/08/18 09:31 Dose: 30 ml Albuterol (Ventolin Hfa 90 Mcg/Actuation (8 G)) 1 puff INH RQ6 PRN PRN Reason: SOB Last Admin: 04/07/18 23:33 Dose: 1 puff Benztropine Mesylate (Cogentin) 1 mg PO DAILY [facility] Buprenorphine HCl (Subutex) 2 mg SL DAILY [facility] PRN Reason: Taper Stop: 04/12/18 09:59 Last Admin: 04/11/18 10:05 Dose: Not Given Clonidine HCl (Catapres) 0.1 mg PO Q8 PRN PRN Reason: COWS Score More or Equal to 5 Cyclobenzaprine HCl (Flexeril) 5 mg PO TID [facility] Last Admin: 04/11/18 20:55 Dose: Not Given Dicyclomine HCl (Bentyl) 10 mg PO Q6H PRN PRN Reason: muscle spasms Last Admin: 04/08/18 13:21 Dose: 10 mg Folic Acid (Folic Acid) 1 mg PO DAILY [facility] Last Admin: 04/11/18 10:01 Dose: 1 mg Gabapentin (Neurontin) 300 mg PO TID [facility] Last Admin: 04/11/18 20:56 Dose: Not Given Haloperidol (Haldol) 5 mg PO Q4H PRN PRN Reason: Agitation Haloperidol Lactate (Haldol) 5 mg IVP Q8H PRN PRN Reason: Severe Agitation Hydroxyzine HCl (Atarax) 50 mg PO Q6H PRN PRN Reason: Anxiety Last Admin: 04/11/18 10:01 Dose: 50 mg Lactulose (Enulose) 30 gm PO TID [facility] Last Admin: 04/11/18 20:55 Dose: Not Given Loperamide HCl (Imodium) 2 mg PO Q8 PRN PRN Reason: Diarrhea Last Admin: 04/08/18 09:31 Dose: 2 mg Lorazepam (Ativan) 1 mg IM Q4H PRN PRN Reason: Severe anxiety Last Admin: 04/12/18 03:48 Dose: 1 mg Multivitamins (Hexavitamin) 1 tab PO DAILY [facility] Last Admin: 04/11/18 09:53 Dose: 1 tab Ondansetron HCl (Zofran Tab) 4 mg PO Q8 PRN PRN Reason: Nausea/Vomiting Pantoprazole Sodium (Protonix Ec Tab) 20 mg PO DAILY [facility] Last Admin: 04/11/18 09:53 Dose: 20 mg Pneumococcal Polyvalent Vaccine (Pneumovax 23 Vaccine) 0.5 ml IM .ONCE ONE Stop: 04/12/18 10:01 Quetiapine Fumarate (Seroquel) 100 mg PO [facility] Last Admin: 04/11/18 22:17 Dose: Not Given Rifaximin (Xifaxan) 550 mg PO BID [facility] PRN Reason: Protocol Last Admin: 04/11/18 20:56 Dose: Not Given Thiamine HCl (Vitamin B1 Tab) 100 mg PO DAILY [facility] Last Admin: 04/11/18 09:53 Dose: 100 mg Trazodone HCl (Desyrel) 100 mg PO [facility] Last Admin: 04/11/18 22:18 Dose: Not Given - Labs Labs: 04/12/18 06:29 04/12/18 06:29 PT 23.9 SECONDS (9.7-12.2) H 04/12/18 06:29 INR 2.2 04/12/18 06:29 - Constitutional Appears: Toxic, No Acute Distress, Unkempt, Combative, Agitated, Confused - Head Exam Head Exam: ATRAUMATIC, NORMAL INSPECTION, NORMOCEPHALIC - Eye Exam Eye Exam: EOMI, Normal appearance, PERRL - ENT Exam ENT Exam: Mucous Membranes Moist - Respiratory Exam Respiratory Exam: Clear to Ausculation Bilateral, NORMAL BREATHING PATTERN - Cardiovascular Exam Cardiovascular Exam: REGULAR RHYTHM, +S1, +S2 Additional comments: runs tachy end of normal - GI/Abdominal Exam GI & Abdominal Exam: Distended, Soft, Normal Bowel Sounds. absent: Tenderness - Extremities Exam Extremities Exam: Normal Capillary Refill, Normal Inspection Additional comments: pedal pulses present remains in 4 point restraints - Neurological Exam Neurological Exam: Awake, Reflexes Normal - Psychiatric Exam Psychiatric exam: Agitated - Skin Skin Exam: Dry, Intact, Normal Color, Warm Assessment and Plan - Assessment and Plan (Free Text) Plan: Medical consult, now transferred to med/surg 1) Hepatic Encephalopathy Ammonia 31 today, trend 71, 60. Patient confused Will trend PT, INR, ammonia levels. Lactulose 30gm po tid Rifaximin 550mg po bid GI consulted: Dr. Rao schreiber appreciated 2) Dilated Common Bile Duct Abdominal US (04/11/18): Measures 8.4mm GI consulted: Dr. 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 Trend Psychiatry on board: Dr. Avila today. To determine continuation of 4 point restraints or chemical sedation. -Haldol and Ativan prn orders Patient continues to be combative with me. Discussed with mother, who verbalizes understanding. 5) UTI Urine Cx: yeast species, GC/CT negative. Cipro discontinued Patient asymptomatic, continue to monitor. Abd US (04/11/18) 12mm nonobstructing stone in lower pole of left kidney 6) PPx Protonix 20mg po daily Holding anticoagulation due to fall risk, SCDs MVI Vickie Cummings PGY-1. Plan discussed with Dr. Malloy. <Ben Malloy - Last Filed: 04/13/18 17:22> Objective - Vital Signs/Intake and Output Vital Signs (last 24 hours): Temp Pulse Resp BP Pulse Ox 98.5 F 94 H 20 116/72 97 04/12/18 16:00 04/12/18 16:00 04/12/18 16:00 04/12/18 16:00 04/12/18 16:00 Intake and Output: 04/12/18 04/13/18 18:59 06:59 Intake Total 50 Balance 50 - Medications Medications: Current Medications Al Hydrox/Mg Hydrox/Simethicone (Maalox 30 Ml) 30 ml PO TID PRN PRN Reason: Indigestion / Heartburn Last Admin: 04/08/18 09:31 Dose: 30 ml Albuterol (Ventolin Hfa 90 Mcg/Actuation (8 G)) 1 puff INH RQ6 PRN PRN Reason: SOB Last Admin: 04/07/18 23:33 Dose: 1 puff Benztropine Mesylate (Cogentin) 1 mg PO DAILY [facility] Last Admin: 04/12/18 10:56 Dose: Not Given Clonidine HCl (Catapres) 0.1 mg PO Q8 PRN PRN Reason: COWS Score More or Equal to 5 Cyclobenzaprine HCl (Flexeril) 5 mg PO TID [facility] Last Admin: 04/12/18 13:41 Dose: Not Given Dicyclomine HCl (Bentyl) 10 mg PO Q6H PRN PRN Reason: muscle spasms Last Admin: 04/08/18 13:21 Dose: 10 mg Folic Acid (Folic Acid) 1 mg PO DAILY [facility] Last Admin: 04/12/18 10:51 Dose: Not Given Gabapentin (Neurontin) 300 mg PO TID [facility] Last Admin: 04/12/18 13:41 Dose: Not Given Haloperidol (Haldol) 5 mg PO BID [facility] Last Admin: 04/12/18 11:03 Dose: Not Given Haloperidol Lactate (Haldol) 5 mg IM Q6 PRN PRN Reason: Agitation Hydroxyzine HCl (Atarax) 50 mg PO Q6H PRN PRN Reason: Anxiety Last Admin: 04/11/18 10:01 Dose: 50 mg Multivitamins/Vitamin C 10 ml/Thiamine HCl 100 mg/ Folic Acid 1 mg/ Sodium Chloride 1,011.2 mls @ 40 mls/hr IV .Q24H ONE Stop: 04/13/18 20:59 Lactulose (Enulose) 30 gm PO TID [facility] Last Admin: 04/12/18 13:41 Dose: Not Given Loperamide HCl (Imodium) 2 mg PO Q8 PRN PRN Reason: Diarrhea Last Admin: 04/08/18 09:31 Dose: 2 mg Lorazepam (Ativan) 2 mg IVP Q6H PRN PRN Reason: Anxiety Last Admin: 04/12/18 11:05 Dose: 2 mg Multivitamins (Hexavitamin) 1 tab PO DAILY [facility] Last Admin: 04/12/18 11:01 Dose: Not Given Ondansetron HCl (Zofran Tab) 4 mg PO Q8 PRN PRN Reason: Nausea/Vomiting Pantoprazole Sodium (Protonix Ec Tab) 20 mg PO DAILY [facility] Last Admin: 04/12/18 11:04 Dose: Not Given Quetiapine Fumarate (Seroquel) 100 mg PO [facility] Last Admin: 04/11/18 22:17 Dose: Not Given Rifaximin (Xifaxan) 550 mg PO BID [facility] PRN Reason: Protocol Last Admin: 04/12/18 11:04 Dose: Not Given Thiamine HCl (Vitamin B1 Tab) 100 mg PO DAILY [facility] Last Admin: 04/12/18 11:04 Dose: Not Given Trazodone HCl (Desyrel) 100 mg PO [facility] Last Admin: 04/11/18 22:18 Dose: Not Given - Labs Labs: 04/12/18 06:29 04/12/18 06:29 PT 23.9 SECONDS (9.7-12.2) H 04/12/18 06:29 INR 2.2 04/12/18 06:29 Attending/Attestation - Attestation I have personally seen and examined this patient.: Yes I have fully participated in the care of the patient.: Yes I have reviewed all pertinent clinical information, including history, physical exam and plan: Yes Notes (Text): Patient was seen and examined by me. He was sedated/confused due to alcoholic encephalopathy. Discussed with the RN and restrain removed. patient's mother visited him today. He spoked to her. patient will be with 1;1 observation No fever,no abdominal tenderness noted,lungs clear He was responding to verbal command. we will continue current meds. he was not eating ,ahs little liquids. We will give banana bag low rate Discussed with the resident and I agree with the documentation GI consult appreciated MELD score 22 IR for peritoneal tap to r/o SBP
--- NOTE | 2018-04-12 07:39 | CP.PCM.PCO ---
Physician Communication Note - Physician Communication Note Physician Communication Note: Dr. Avila from psych will follow this patient today.
[2018-04-12] MEDS ORDERED: Pneumococcal 23-Valent Vaccine IM ONE (10:00)
[2018-04-12] MEDS: Multiple Vitamins Tab PO SCH (11:01)
[2018-04-12] MEDS: Pantoprazole 20 mg EC Tab PO SCH (11:04)
--- NOTE | 2018-04-12 15:23 | CP.PCM.CON ---
History of Present Illness - History of Present Illness History of Present Illness: GI Fellow PGY4, consult note. Patient is a 47yo male with history significant for alcoholic cirrhosis , HCV, polysubstance abuse who was admitted for alcohol/opiate detox. We were consulted for possible hepatic encephalopathy and dilated CBD. Patient is encephalopathic and confused at the time of my exam as well as s/p ativan. Psych has been following closely. Apparently patient became very agitated yesterday requiring Haldol, ativan and restraints. Sitter is at bedside without restraints at this time. PMHx - HCV, polysubstance and alcohol abuse, cirrhosis PSHx - unable to obtain due to encephalopathy FmHx - unable to obtain due to encephalopathy SocHx -IVDU and alcohol abuse 12pt ROS unable to obtain due to encephalopathy Past Patient History - Infectious Disease Hx of Infectious Diseases: None - Past Medical History & Family History Past Medical History?: Yes - Past Social History Smoking Status: Heavy Smoker > 10 Cigarettes Daily - CARDIAC Hx Hypertension: No - PULMONARY Hx Asthma: Yes - NEUROLOGICAL Hx Seizures: No - HEENT Hx HEENT Problems: No - RENAL Hx Chronic Kidney Disease: No Hx Kidney Stones: Yes - ENDOCRINE/METABOLIC Hx Endocrine Disorders: No - HEMATOLOGICAL/ONCOLOGICAL Hx Human Immunodeficiency Virus (HIV): No - INTEGUMENTARY Hx Dermatological Problems: No - MUSCULOSKELETAL/RHEUMATOLOGICAL Hx Falls: No - GASTROINTESTINAL Other/Comment: right groin hernia - GENITOURINARY/GYNECOLOGICAL Hx Sexually Transmitted Disorders: No - PSYCHIATRIC Hx Substance Use: Yes - SURGICAL HISTORY Hx Coronary Stent: No - ANESTHESIA Hx Anesthesia: Yes Hx Anesthesia Reactions: No Hx Malignant Hyperthermia: No Meds Allergies/Adverse Reactions: Allergies Allergy/AdvReac Type Severity Reaction Status Date / Time No Known Allergies Allergy Verified 04/06/18 12:28 - Medications Medications: Current Medications Al Hydrox/Mg Hydrox/Simethicone (Maalox 30 Ml) 30 ml PO TID PRN PRN Reason: Indigestion / Heartburn Last Admin: 04/08/18 09:31 Dose: 30 ml Albuterol (Ventolin Hfa 90 Mcg/Actuation (8 G)) 1 puff INH RQ6 PRN PRN Reason: SOB Last Admin: 04/07/18 23:33 Dose: 1 puff Benztropine Mesylate (Cogentin) 1 mg PO DAILY [facility] Last Admin: 04/12/18 10:56 Dose: Not Given Clonidine HCl (Catapres) 0.1 mg PO Q8 PRN PRN Reason: COWS Score More or Equal to 5 Cyclobenzaprine HCl (Flexeril) 5 mg PO TID [facility] Last Admin: 04/12/18 13:41 Dose: Not Given Dicyclomine HCl (Bentyl) 10 mg PO Q6H PRN PRN Reason: muscle spasms Last Admin: 04/08/18 13:21 Dose: 10 mg Folic Acid (Folic Acid) 1 mg PO DAILY [facility] Last Admin: 04/12/18 10:51 Dose: Not Given Gabapentin (Neurontin) 300 mg PO TID [facility] Last Admin: 04/12/18 13:41 Dose: Not Given Haloperidol (Haldol) 5 mg PO BID [facility] Last Admin: 04/12/18 11:03 Dose: Not Given Haloperidol Lactate (Haldol) 5 mg IVP Q8H PRN PRN Reason: Severe Agitation Haloperidol Lactate (Haldol) 5 mg IM Q6 PRN PRN Reason: Agitation Hydroxyzine HCl (Atarax) 50 mg PO Q6H PRN PRN Reason: Anxiety Last Admin: 04/11/18 10:01 Dose: 50 mg Lactulose (Enulose) 30 gm PO TID [facility] Last Admin: 04/12/18 13:41 Dose: Not Given Loperamide HCl (Imodium) 2 mg PO Q8 PRN PRN Reason: Diarrhea Last Admin: 04/08/18 09:31 Dose: 2 mg Lorazepam (Ativan) 2 mg IVP Q6H PRN PRN Reason: Anxiety Last Admin: 04/12/18 11:05 Dose: 2 mg Multivitamins (Hexavitamin) 1 tab PO DAILY [facility] Last Admin: 04/12/18 11:01 Dose: Not Given Ondansetron HCl (Zofran Tab) 4 mg PO Q8 PRN PRN Reason: Nausea/Vomiting Pantoprazole Sodium (Protonix Ec Tab) 20 mg PO DAILY [facility] Last Admin: 04/12/18 11:04 Dose: Not Given Quetiapine Fumarate (Seroquel) 100 mg PO HS [facility] Last Admin: 04/11/18 22:17 Dose: Not Given Rifaximin (Xifaxan) 550 mg PO BID [facility] PRN Reason: Protocol Last Admin: 04/12/18 11:04 Dose: Not Given Thiamine HCl (Vitamin B1 Tab) 100 mg PO DAILY [facility] Last Admin: 04/12/18 11:04 Dose: Not Given Trazodone HCl (Desyrel) 100 mg PO HS [facility] Last Admin: 04/11/18 22:18 Dose: Not Given Physical Exam - Constitutional Appears: Non-toxic, No Acute Distress, Confused - Head Exam Head Exam: ATRAUMATIC, NORMAL INSPECTION, NORMOCEPHALIC - Eye Exam Eye Exam: EOMI, Normal appearance - ENT Exam ENT Exam: Mucous Membranes Moist, Normal Exam - Respiratory Exam Respiratory Exam: NORMAL BREATHING PATTERN. absent: Respiratory Distress, Stridor - Cardiovascular Exam Cardiovascular Exam: REGULAR RHYTHM - GI/Abdominal Exam GI & Abdominal Exam: Soft. absent: Guarding, Hernia, Organomegaly, Tenderness Additional comments: Fluid wave present - Extremities Exam Extremities exam: Positive for: normal inspection. Negative for: calf tenderness, joint swelling - Psychiatric Exam Psychiatric exam: Agitated, Flat Affect - Skin Skin Exam: Dry, Intact, Normal Color Results - Vital Signs Recent Vital Signs: Last Vital Signs Temp 98.2 F 04/12/18 07:00 Pulse 104 H 04/12/18 07:00 Resp 20 04/12/18 07:00 BP 124/77 04/12/18 07:00 Pulse Ox 97 04/12/18 07:00 - Labs Result Diagrams: 04/12/18 06:29 04/12/18 06:29 Labs: Laboratory Results - last 24 hr 04/12/18 04/12/18 04/12/18 06:29 06:29 06:29 WBC 3.1 L RBC 3.20 L Hgb 10.5 L Hct 30.6 L MCV 95.6 H MCH 32.9 H MCHC 34.4 RDW 16.2 H Plt Count 45 L MPV 11.1 Neut % (Auto) 72.9 Lymph % (Auto) 16.7 L Whitman % (Auto) 7.2 Eos % (Auto) 2.7 Baso % (Auto) 0.5 Neut # (Auto) 2.2 Lymph # (Auto) 0.5 L Whitman # (Auto) 0.2 Eos # (Auto) 0.1 Baso # (Auto) 0.0 PT 23.9 H INR 2.2 Sodium 145 Potassium 4.1 Chloride 114 H Carbon Dioxide 21 L Anion Gap 14 BUN 16 Creatinine 0.8 Est GFR ( Amer) > 60 Est GFR (Non-Af Amer) > 60 Random Glucose 78 Calcium 7.9 L Total Bilirubin 5.3 H AST 385 H ALT 153 H Alkaline Phosphatase 142 H Ammonia Total Protein 6.3 Albumin 2.1 L Globulin 4.2 H Albumin/Globulin Ratio 0.5 L 04/12/18 06:29 WBC RBC Hgb Hct MCV MCH MCHC RDW Plt Count MPV Neut % (Auto) Lymph % (Auto) Whitman % (Auto) Eos % (Auto) Baso % (Auto) Neut # (Auto) Lymph # (Auto) Whitman # (Auto) Eos # (Auto) Baso # (Auto) PT INR Sodium Potassium Chloride Carbon Dioxide Anion Gap BUN Creatinine Est GFR ( Amer) Est GFR (Non-Af Amer) Random Glucose Calcium Total Bilirubin AST ALT Alkaline Phosphatase Ammonia 31 D Total Protein Albumin Globulin Albumin/Globulin Ratio Assessment & Plan - Assessment and Plan (Free Text) Assessment: 47M with hx of alcoholic cirrhosis, polysubstance abuse, HCV who was admitted to hospital for drug/alcohol detox and we were consulted for concern for hepatic encephalopathy and dilated CBD. #Decompensated cirrhosis - HE and ascites #Dilated CBD #HCV #Acute metabolic encephalopathy #Pancytopenia #Polysubstance abuse with w/d #Alcohol w/d Plan: -Continue supportive care -Continue Lactulose 20mg TID for goal BMs 3-4 per day to avoid dehydration. Increase or decrease dose as needed. No need to trend ammonia level. -Continue Rifaximin 550mg BID -Recommend paracentesis to r/o SBP as a possible etiology for altered mental status. Monitor of leukocytosis, fever, abdominal pain. -CT imaging confirms cirrhosis and no signs of HCC. -MELD score 22 and -DF score 59. Prednisolone possibly beneficial if SBP ruled out. -CEA and AFP ordered -CIWA score currently 0 s/p ativan, out of 4-pt restraints. Continue per psych. -CBD is 8.4mm in setting of opiate abuse and chronically elevated cholestatic pattern on liver tests plus U/S without evidence of gallstone. Continue to monitor liver tests and physical exam findings, currently no abdominal pain or fever. -Pancytopenia likely due to cirrhosis and bone marrow suppression from alcohol -Outpatient f/u for chronic HCV -No expected endoscopic procedures at this time. -Outpt EGD to r/o varicies.
--- NOTE | 2018-04-12 20:21 | PCM.PYCHPN ---
Psychiatric Progress Note - Psychiatric Progress Note Patient seen today, length of contact: 15 min Patient Chief Complaint: I want to go home. Medication Change: Yes (detox changes daily) Medical Record Reviewed: Yes Mental Status Examination - Cognitive Function Orientation: Person, Situation Memory: Impaired Attention: Poor Concentration: Poor Association: Loose Fund of Knowledge: Poor - Mood Mood: Anxious - Affect Affect: Constricted (odd) - Speech Speech: Slurred - Formal Thought Process Formal Thought Process: No Impairment - Suicidal Ideation Suicidal Ideation: No - Homicidal Ideation Homicidal Ideation: No Goal/Treatment Plan - Goal/Treatment Plan Need for Continued Stay: Discharge may exacerbated symptoms, Severe functional impairment, Other (medical) Estimated Date of D/C: 04/11/18
[2018-04-12] MEDS ORDERED: Multivitamin (MVI) 10 ML, Thiamine 100 MG, Folic Acid 1 MG in Sodium Chloride 0.9% 1,00... IV ONE (21:00)
[2018-04-13 09:12] LABS: BASO % 0.3 % (0.0-2.0); EOS # 0.1 K/uL (0.0-0.7); EOS % 3.2 % (0.0-4.0); HEMOGLOBIN 10.7 g/dL (12.0-18.0); LYMPH # 0.6 K/uL (1.0-4.3); LYMPH % 21.2 % (20.0-40.0); MEAN CORPUSCULAR HEMOGLOBIN 33.1 pg (27.0-31.0); MEAN CORPUSCULAR HGB CONC 34.5 g/dL (33.0-37.0); MEAN PLATELET VOLUME 11.9 fL (7.2-11.7); MONO # 0.2 K/uL (0.0-0.8); MONO % 7.6 % (0.0-10.0); NEUT % 67.7 % (50.0-75.0); RBC 3.23 Mil/uL (4.40-5.90); RED CELL DISTRIBUTION WIDTH 16.4 % (11.5-14.5)
--- NOTE | 2018-04-13 09:12 | CP.PCM.PN ---
<Vickie Cummings - Last Filed: 04/13/18 18:40> Subjective - Date & Time of Evaluation Date of Evaluation: 04/13/18 Time of Evaluation: 09:11 - Subjective Subjective: PGY-[address] Malloy. Patient was seen and examined today at bedside in no acute distress. Nurse reported no overnight events. Patient denies any new acute problems. Remains agitated and voices desire to go home. Denies chest pain, shortness of breath, abdominal pain, nausea, vomiting, constipation, diarrhea. Objective - Vital Signs/Intake and Output Vital Signs (last 24 hours): Temp Pulse Resp BP Pulse Ox 98.8 F 95 H 20 113/63 96 04/13/18 08:00 04/13/18 08:00 04/13/18 08:00 04/13/18 08:00 04/13/18 08:00 Intake and Output: 04/13/18 04/13/18 06:59 18:59 Intake Total 1150 Balance 1150 - Medications Medications: Current Medications Al Hydrox/Mg Hydrox/Simethicone (Maalox 30 Ml) 30 ml PO TID PRN PRN Reason: Indigestion / Heartburn Last Admin: 04/08/18 09:31 Dose: 30 ml Albuterol (Ventolin Hfa 90 Mcg/Actuation (8 G)) 1 puff INH RQ6 PRN PRN Reason: SOB Last Admin: 04/07/18 23:33 Dose: 1 puff Benztropine Mesylate (Cogentin) 1 mg PO DAILY [facility] Last Admin: 04/12/18 10:56 Dose: Not Given Clonidine HCl (Catapres) 0.1 mg PO Q8 PRN PRN Reason: COWS Score More or Equal to 5 Cyclobenzaprine HCl (Flexeril) 5 mg PO TID [facility] Last Admin: 04/12/18 21:09 Dose: Not Given Dicyclomine HCl (Bentyl) 10 mg PO Q6H PRN PRN Reason: muscle spasms Last Admin: 04/08/18 13:21 Dose: 10 mg Folic Acid (Folic Acid) 1 mg PO DAILY [facility] Last Admin: 04/12/18 10:51 Dose: Not Given Gabapentin (Neurontin) 300 mg PO TID [facility] Last Admin: 04/12/18 21:08 Dose: Not Given Haloperidol (Haldol) 5 mg PO BID [facility] Last Admin: 04/12/18 21:08 Dose: 5 mg Haloperidol Lactate (Haldol) 5 mg IM Q6 PRN PRN Reason: Agitation Hydroxyzine HCl (Atarax) 50 mg PO Q6H PRN PRN Reason: Anxiety Last Admin: 04/11/18 10:01 Dose: 50 mg Multivitamins/Vitamin C 10 ml/Thiamine HCl 100 mg/ Folic Acid 1 mg/ Sodium Chloride 1,011.2 mls @ 40 mls/hr IV .Q24H ONE Stop: 04/13/18 20:59 Last Admin: 04/12/18 20:57 Dose: 40 mls/hr Lactulose (Enulose) 30 gm PO TID [facility] Last Admin: 04/12/18 21:08 Dose: Not Given Loperamide HCl (Imodium) 2 mg PO Q8 PRN PRN Reason: Diarrhea Last Admin: 04/08/18 09:31 Dose: 2 mg Lorazepam (Ativan) 2 mg IVP Q6H PRN PRN Reason: Anxiety Last Admin: 04/13/18 04:39 Dose: 2 mg Multivitamins (Hexavitamin) 1 tab PO DAILY [facility] Last Admin: 04/12/18 11:01 Dose: Not Given Ondansetron HCl (Zofran Tab) 4 mg PO Q8 PRN PRN Reason: Nausea/Vomiting Pantoprazole Sodium (Protonix Ec Tab) 20 mg PO DAILY [facility] Last Admin: 04/12/18 11:04 Dose: Not Given Quetiapine Fumarate (Seroquel) 100 mg PO [facility] Last Admin: 04/12/18 22:00 Dose: Not Given Rifaximin (Xifaxan) 550 mg PO BID [facility] PRN Reason: Protocol Last Admin: 04/12/18 21:08 Dose: Not Given Thiamine HCl (Vitamin B1 Tab) 100 mg PO DAILY [facility] Last Admin: 04/12/18 11:04 Dose: Not Given Trazodone HCl (Desyrel) 100 mg PO HS [facility] Last Admin: 04/12/18 22:01 Dose: Not Given - Labs Labs: 04/12/18 06:29 04/12/18 06:29 PT 23.9 SECONDS (9.7-12.2) H 04/12/18 06:29 INR 2.2 04/12/18 06:29 - Constitutional Appears: Non-toxic, No Acute Distress, Unkempt - Head Exam Head Exam: ATRAUMATIC, NORMAL INSPECTION, NORMOCEPHALIC - Eye Exam Eye Exam: EOMI, Normal appearance, PERRL - ENT Exam ENT Exam: Mucous Membranes Moist, Normal Exam - Respiratory Exam Respiratory Exam: Clear to Ausculation Bilateral, NORMAL BREATHING PATTERN - Cardiovascular Exam Cardiovascular Exam: REGULAR RHYTHM, +S1, +S2. absent: Murmur - GI/Abdominal Exam GI & Abdominal Exam: Distended, Soft, Normal Bowel Sounds. absent: Tenderness - Extremities Exam Extremities Exam: Full ROM, Normal Capillary Refill, Normal Inspection. absent : Joint Swelling, Pedal Edema - Neurological Exam Neurological Exam: Abnormal Gait, Awake, CN II-XII Intact, Oriented x3 - Psychiatric Exam Psychiatric exam: Agitated - Skin Skin Exam: Dry, Intact, Normal Color, Warm Assessment and Plan - Assessment and Plan (Free Text) Plan: Medical consult, now transferred to med/surg 1) Hepatic Encephalopathy Ammonia 80 today, trend 31, 71, 60. Patient confused, refusing po meds at times. Will trend PT, INR, ammonia levels. Lactulose 30gm po tid Rifaximin 550mg po bid GI consulted: Dr. Rao schreiber appreciated -paracentesis consult for IR: Dr. Marty schreiber appreciated -Type and Screen, PT/INR f/u --INR 2.2 today, given VitK 10mg sc once 2) Dilated Common Bile Duct Abdominal US (04/11/18): Measures 8.4mm GI consulted: Dr. 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 Trend Psychiatry on board: Dr. Margarita schreiber appreciated -Haldol and Ativan prn orders -patient is more awake, although still not oriented. Tolerating chemical sedation better than 4 point restraints. Continue management as is. discussed with mother, who verbalizes understanding. 5) UTI Urine Cx: yeast species, GC/CT negative. Cipro discontinued Patient asymptomatic, continue to monitor. Abd US (04/11/18) 12mm nonobstructing stone in lower pole of left kidney 6) PPx Protonix 20mg po daily Holding anticoagulation due to fall risk, SCDs MVI Vickie Cummings PGY-1. Plan discussed with Dr. Malloy. <Ben Malloy - Last Filed: 04/16/18 19:09> Objective - Vital Signs/Intake and Output Vital Signs (last 24 hours): Temp Pulse Resp BP Pulse Ox 98.3 F 91 H 20 119/64 100 04/16/18 16:00 04/16/18 16:00 04/16/18 16:00 04/16/18 16:00 04/16/18 16:00 - Medications Medications: Current Medications Al Hydrox/Mg Hydrox/Simethicone (Maalox 30 Ml) 30 ml PO TID PRN PRN Reason: Indigestion / Heartburn Last Admin: 04/08/18 09:31 Dose: 30 ml Albuterol (Ventolin Hfa 90 Mcg/Actuation (8 G)) 1 puff INH RQ6 PRN PRN Reason: SOB Last Admin: 04/07/18 23:33 Dose: 1 puff Benztropine Mesylate (Cogentin) 1 mg PO DAILY [facility] Last Admin: 04/16/18 09:54 Dose: 1 mg Clonidine HCl (Catapres) 0.1 mg PO Q8 PRN PRN Reason: COWS Score More or Equal to 5 Cyclobenzaprine HCl (Flexeril) 5 mg PO TID [facility] Last Admin: 04/16/18 18:06 Dose: Not Given Dicyclomine HCl (Bentyl) 10 mg PO Q6H PRN PRN Reason: muscle spasms Last Admin: 04/14/18 18:11 Dose: 10 mg Folic Acid (Folic Acid) 1 mg PO DAILY [facility] Last Admin: 04/16/18 09:30 Dose: 1 mg Gabapentin (Neurontin) 300 mg PO TID [facility] Last Admin: 04/16/18 18:07 Dose: Not Given Haloperidol (Haldol) 5 mg PO BID [facility] Last Admin: 04/16/18 18:07 Dose: Not Given Haloperidol Lactate (Haldol) 5 mg IM Q6 PRN PRN Reason: Agitation Hydroxyzine HCl (Atarax) 50 mg PO Q6H PRN PRN Reason: Anxiety Last Admin: 04/11/18 10:01 Dose: 50 mg Lactulose (Enulose) 30 gm PO QID [facility] Last Admin: 04/16/18 18:06 Dose: Not Given Lactulose (Generlac) 200 gm NM TID [facility] Last Admin: 04/16/18 18:06 Dose: Not Given Loperamide HCl (Imodium) 2 mg PO Q8 PRN PRN Reason: Diarrhea Last Admin: 04/08/18 09:31 Dose: 2 mg Lorazepam (Ativan) 1 mg IVP Q6H PRN PRN Reason: Anxiety Last Admin: 04/15/18 05:45 Dose: 1 mg Multivitamins (Hexavitamin) 1 tab PO DAILY [facility] Last Admin: 04/16/18 09:30 Dose: 1 tab Neomycin Sulfate (Neomycin Tab) 500 mg PO Q6 [facility] Last Admin: 04/16/18 18:07 Dose: Not Given Ondansetron HCl (Zofran Tab) 4 mg PO Q8 PRN PRN Reason: Nausea/Vomiting Pantoprazole Sodium (Protonix Ec Tab) 20 mg PO DAILY [facility] Last Admin: 04/16/18 09:30 Dose: 20 mg Quetiapine Fumarate (Seroquel) 100 mg PO [facility] Last Admin: 04/15/18 22:16 Dose: 100 mg Thiamine HCl (Vitamin B1 Tab) 100 mg PO DAILY [facility] Last Admin: 04/16/18 09:30 Dose: 100 mg Trazodone HCl (Desyrel) 100 mg PO [facility] Last Admin: 04/15/18 22:16 Dose: 100 mg - Labs Labs: 04/16/18 06:27 04/16/18 06:27 PT 24.4 SECONDS (9.7-12.2) H 04/14/18 07:05 INR 2.2 04/14/18 07:05 Attending/Attestation - Attestation I have personally seen and examined this patient.: Yes I have fully participated in the care of the patient.: Yes I have reviewed all pertinent clinical information, including history, physical exam and plan: Yes Notes (Text): Seen and examined by me,angel is very confused and become agitated off sedation Discussed with mother Patient has history of ,cirrhosis ,alcohol and drug abuse On examination he has clear lungs,abdomen distended,non tender,no fever,no leukocytosis,high ammonia continue 1;1 continue lactulose,hold ativan and haldol if he is sedated d/w Resident and I agree with the documentation of the resident's assessment and the plan
[2018-04-13 09:18] LABS: INR 2.2; PROTHROMBIN TIME 23.9 SECONDS (9.7-12.2)
[2018-04-13 09:34] LABS: ALB/GLOB RATIO 0.5 (1.0-2.1); ALBUMIN 2.1 g/dL (3.5-5.0); ALT/SGPT 151 U/L (21-72); AST/SGOT 371 U/L (17-59); BLOOD UREA NITROGEN 17 mg/dL (9-20); CALCIUM 7.8 mg/dl (8.6-10.4); GFR AFRICAN-AMERICAN > 60; GFR NON-AFRICAN AMERICAN > 60
[2018-04-13] MEDS: Pantoprazole 20 mg EC Tab PO SCH (10:22)
[2018-04-13] MEDS: Multiple Vitamins Tab PO SCH (10:22)
[2018-04-13] MEDS ORDERED: Phytonadione 10 mg/ml Inj (Adult) SC STA (17:22)
[2018-04-14 07:30] LABS: INR 2.2; PROTHROMBIN TIME 24.4 SECONDS (9.7-12.2)
[2018-04-14 07:36] LABS: BASO % 0.5 % (0.0-2.0); EOS # 0.1 K/uL (0.0-0.7); EOS % 2.9 % (0.0-4.0); HEMOGLOBIN 9.8 g/dL (12.0-18.0); LYMPH # 0.7 K/uL (1.0-4.3); LYMPH % 23.5 % (20.0-40.0); MEAN CELL VOLUME 95.6 fL (80.0-94.0); MEAN CORPUSCULAR HEMOGLOBIN 32.7 pg (27.0-31.0); MEAN CORPUSCULAR HGB CONC 34.2 g/dL (33.0-37.0); MEAN PLATELET VOLUME 11.9 fL (7.2-11.7); MONO # 0.2 K/uL (0.0-0.8); NEUT # 1.9 K/uL (1.8-7.0); NEUT % 65.1 % (50.0-75.0); NRBC % 0.1 % (0.0-2.0); RBC 3.01 Mil/uL (4.40-5.90); WHITE BLOOD COUNT 2.9 K/uL (4.8-10.8)
[2018-04-14 08:13] LABS: ALB/GLOB RATIO 0.5 (1.0-2.1); ALT/SGPT 133 U/L (21-72); AST/SGOT 262 U/L (17-59); BLOOD UREA NITROGEN 12 mg/dL (9-20); CALCIUM 7.9 mg/dl (8.6-10.4); GFR AFRICAN-AMERICAN > 60; GFR NON-AFRICAN AMERICAN > 60
[2018-04-14] MEDS: Multiple Vitamins Tab PO SCH (09:19)
[2018-04-14] MEDS: Pantoprazole 20 mg EC Tab PO SCH (09:19)
--- NOTE | 2018-04-14 10:59 | CP.PCM.PN ---
Subjective - Date & Time of Evaluation Date of Evaluation: 04/14/18 Time of Evaluation: 10:56 - Subjective Subjective: GI Fellow PGY4, progress note. Patient seen and examined at bedside. Overnight events discussed with nurse. Only one BM since last night and not compliant with lactulose. Patient is still encephalopathic making unintelligible sounds. Unable to obtain ROS due to AMS. Objective - Vital Signs/Intake and Output Vital Signs (last 24 hours): Temp Pulse Resp BP Pulse Ox 99 F 106 H 22 107/65 98 04/14/18 07:50 04/14/18 07:50 04/14/18 07:50 04/14/18 07:50 04/14/18 07:50 Intake and Output: 04/14/18 04/14/18 06:59 18:59 Intake Total 820 Balance 820 - Medications Medications: Current Medications Al Hydrox/Mg Hydrox/Simethicone (Maalox 30 Ml) 30 ml PO TID PRN PRN Reason: Indigestion / Heartburn Last Admin: 04/08/18 09:31 Dose: 30 ml Albuterol (Ventolin Hfa 90 Mcg/Actuation (8 G)) 1 puff INH RQ6 PRN PRN Reason: SOB Last Admin: 04/07/18 23:33 Dose: 1 puff Benztropine Mesylate (Cogentin) [address] [facility] Last Admin: 04/14/18 09:20 Dose: 1 mg Clonidine HCl (Catapres) 0.1 mg PO Q8 PRN PRN Reason: COWS Score More or Equal to 5 Cyclobenzaprine HCl (Flexeril) [address] [facility] Last Admin: 04/13/18 17:40 Dose: 5 mg Dicyclomine HCl (Bentyl) 10 mg PO Q6H PRN PRN Reason: muscle spasms Last Admin: 04/08/18 13:21 Dose: 10 mg Folic Acid (Folic Acid) [address] [facility] Last Admin: 04/14/18 09:19 Dose: 1 mg Gabapentin (Neurontin) [address] [facility] Last Admin: 04/14/18 09:19 Dose: 300 mg Haloperidol (Haldol) [address] [facility] Last Admin: 04/14/18 09:20 Dose: 5 mg Haloperidol Lactate (Haldol) 5 mg IM Q6 PRN PRN Reason: Agitation Hydroxyzine HCl (Atarax) 50 mg PO Q6H PRN PRN Reason: Anxiety Last Admin: 04/11/18 10:01 Dose: 50 mg Lactulose (Enulose) [address] [facility] Loperamide HCl (Imodium) 2 mg PO Q8 PRN PRN Reason: Diarrhea Last Admin: 04/08/18 09:31 Dose: 2 mg Lorazepam (Ativan) 1 mg IVP Q6H PRN PRN Reason: Anxiety Lorazepam (Ativan) 1 mg IVP Q6H PRN PRN Reason: Anxiety Multivitamins (Hexavitamin) [address] [facility] Last Admin: 04/14/18 09:19 Dose: 1 tab Neomycin Sulfate (Neomycin Tab) [address] [facility] Ondansetron HCl (Zofran Tab) 4 mg PO Q8 PRN PRN Reason: Nausea/Vomiting Pantoprazole Sodium (Protonix Ec Tab) [address] [facility] Last Admin: 04/14/18 09:19 Dose: 20 mg Quetiapine Fumarate (Seroquel) [address] [facility] Last Admin: 04/13/18 21:45 Dose: 100 mg Thiamine HCl (Vitamin B1 Tab) [address] [facility] Last Admin: 04/14/18 09:19 Dose: 100 mg Trazodone HCl (Desyrel) 100 mg PO [facility] Last Admin: 04/13/18 21:45 Dose: 100 mg - Labs Labs: 04/14/18 07:05 04/14/18 07:05 PT 24.4 SECONDS (9.7-12.2) H 04/14/18 07:05 INR 2.2 04/14/18 07:05 - Constitutional Appears: Non-toxic, No Acute Distress, Older Than Stated Age, Chronically Ill - Head Exam Head Exam: ATRAUMATIC, NORMAL INSPECTION, NORMOCEPHALIC - Eye Exam Eye Exam: EOMI, Normal appearance, PERRL - ENT Exam ENT Exam: Mucous Membranes Moist, Normal Exam - Respiratory Exam Respiratory Exam: Clear to Ausculation Bilateral, NORMAL BREATHING PATTERN. absent: Wheezes - Cardiovascular Exam Cardiovascular Exam: REGULAR RHYTHM, +S1, +S2 - GI/Abdominal Exam GI & Abdominal Exam: Soft, Normal Bowel Sounds. absent: Tenderness Additional comments: Ascites present - Extremities Exam Extremities Exam: Full ROM, Normal Capillary Refill, Normal Inspection - Neurological Exam Neurological Exam: Altered. absent: Awake, Oriented x3 - Psychiatric Exam Psychiatric exam: Agitated, Flat Affect. absent: Anxious - Skin Skin Exam: Dry, Intact, Warm Assessment and Plan - Assessment and Plan (Free Text) Assessment: 47M with hx of alcoholic cirrhosis, polysubstance abuse, HCV who was admitted to hospital for drug/alcohol detox and we were consulted for concern for hepatic encephalopathy and dilated CBD. #Decompensated cirrhosis - HE and ascites #HCV #Acute metabolic encephalopathy - HE +/- medication (haldol, trazadone, seroquel etc.) #Pancytopenia #Polysubstance abuse with w/d #Alcohol w/d Plan: -Continue supportive care -Increase Lactulose 20mg QID for goal BMs 3-4 per day to avoid dehydration. Increase or decrease dose as needed. No need to trend ammonia level. -Start neomycin 500mg Q6H PO -Continue to re-evaluate need for sedatives. Defer to primary and psych. -Recommend paracentesis to r/o SBP as a possible etiology for altered mental status. Monitor of leukocytosis, fever, abdominal pain. -CT imaging confirms cirrhosis and no signs of HCC. -MELD score 22 --> 20 -DF score 59. Prednisolone possibly beneficial if SBP ruled out. -CEA slightly elevated 7.3. Recommend colonoscopy as outpt. -CIWA score currently 0. Continue per psych. -CBD is 8.4mm in setting of opiate abuse and chronically elevated cholestatic pattern on liver tests plus U/S without evidence of gallstone. Continue to monitor liver tests and physical exam findings, currently no abdominal pain or fever. -Pancytopenia likely due to cirrhosis and bone marrow suppression from alcohol -Outpatient f/u for chronic HCV -No expected endoscopic procedures at this time. -Outpt EGD to r/o varicies.
--- NOTE | 2018-04-14 11:51 | CP.PCM.PN ---
<ZoilaVickie Madsen - Last Filed: 04/14/18 19:27> Subjective - Date & Time of Evaluation Date of Evaluation: 04/14/18 Time of Evaluation: 11:48 - Subjective Subjective: PGY-[address] Malloy. Patient was seen and examined today at bedside in no acute distress. Nurse reports no overnight events. Patient reports improvement and verbalizes desire to go home. Patient complains of no new acute problems. Denies chest pain, shortness of breath, abdominal pain, nausea, vomiting, constipation, diarrhea. Objective - Vital Signs/Intake and Output Vital Signs (last 24 hours): Temp Pulse Resp BP Pulse Ox 99 F 106 H 22 107/65 98 04/14/18 07:50 04/14/18 07:50 04/14/18 07:50 04/14/18 07:50 04/14/18 07:50 Intake and Output: 04/14/18 04/14/18 06:59 18:59 Intake Total 820 Balance 820 - Medications Medications: Current Medications Al Hydrox/Mg Hydrox/Simethicone (Maalox 30 Ml) 30 ml PO TID PRN PRN Reason: Indigestion / Heartburn Last Admin: 04/08/18 09:31 Dose: 30 ml Albuterol (Ventolin Hfa 90 Mcg/Actuation (8 G)) 1 puff INH RQ6 PRN PRN Reason: SOB Last Admin: 04/07/18 23:33 Dose: 1 puff Benztropine Mesylate (Cogentin) 1 mg PO DAILY [facility] Last Admin: 04/14/18 09:20 Dose: 1 mg Clonidine HCl (Catapres) 0.1 mg PO Q8 PRN PRN Reason: COWS Score More or Equal to 5 Cyclobenzaprine HCl (Flexeril) 5 mg PO TID [facility] Last Admin: 04/13/18 17:40 Dose: 5 mg Dicyclomine HCl (Bentyl) 10 mg PO Q6H PRN PRN Reason: muscle spasms Last Admin: 04/08/18 13:21 Dose: 10 mg Folic Acid (Folic Acid) 1 mg PO DAILY [facility] Last Admin: 04/14/18 09:19 Dose: 1 mg Gabapentin (Neurontin) 300 mg PO TID [facility] Last Admin: 04/14/18 09:19 Dose: 300 mg Haloperidol (Haldol) 5 mg PO BID [facility] Last Admin: 04/14/18 09:20 Dose: 5 mg Haloperidol Lactate (Haldol) 5 mg IM Q6 PRN PRN Reason: Agitation Hydroxyzine HCl (Atarax) 50 mg PO Q6H PRN PRN Reason: Anxiety Last Admin: 04/11/18 10:01 Dose: 50 mg Lactulose (Enulose) 30 gm PO QID [facility] Loperamide HCl (Imodium) 2 mg PO Q8 PRN PRN Reason: Diarrhea Last Admin: 04/08/18 09:31 Dose: 2 mg Lorazepam (Ativan) 1 mg IVP Q6H PRN PRN Reason: Anxiety Multivitamins (Hexavitamin) 1 tab PO DAILY [facility] Last Admin: 04/14/18 09:19 Dose: 1 tab Neomycin Sulfate (Neomycin Tab) 500 mg PO Q6 [facility] Ondansetron HCl (Zofran Tab) 4 mg PO Q8 PRN PRN Reason: Nausea/Vomiting Pantoprazole Sodium (Protonix Ec Tab) 20 mg PO DAILY [facility] Last Admin: 04/14/18 09:19 Dose: 20 mg Quetiapine Fumarate (Seroquel) 100 mg PO HS [facility] Last Admin: 04/13/18 21:45 Dose: 100 mg Thiamine HCl (Vitamin B1 Tab) 100 mg PO DAILY [facility] Last Admin: 04/14/18 09:19 Dose: 100 mg Trazodone HCl (Desyrel) 100 mg PO HS [facility] Last Admin: 04/13/18 21:45 Dose: 100 mg - Labs Labs: 04/14/18 07:05 04/14/18 07:05 PT 24.4 SECONDS (9.7-12.2) H 04/14/18 07:05 INR 2.2 04/14/18 07:05 - Constitutional Appears: No Acute Distress, Agitated - Head Exam Head Exam: ATRAUMATIC, NORMOCEPHALIC - Eye Exam Eye Exam: EOMI, Normal appearance - ENT Exam ENT Exam: Mucous Membranes Moist, Normal Exam - Respiratory Exam Respiratory Exam: Clear to Ausculation Bilateral, NORMAL BREATHING PATTERN. absent: Rales, Rhonchi, Wheezes - Cardiovascular Exam Cardiovascular Exam: REGULAR RHYTHM, +S1, +S2. absent: Murmur - GI/Abdominal Exam GI & Abdominal Exam: Distended, Soft, Normal Bowel Sounds. absent: Tenderness Additional comments: fluid wave present - Extremities Exam Extremities Exam: Full ROM, Normal Capillary Refill, Normal Inspection. absent : Joint Swelling, Pedal Edema - Neurological Exam Neurological Exam: Alert, Awake, CN II-XII Intact Additional comments: unsteady gait. poor balance - Psychiatric Exam Psychiatric exam: Agitated, Normal Affect - Skin Skin Exam: Dry, Intact, Normal Color, Warm Assessment and Plan - Assessment and Plan (Free Text) Plan: Medical consult, now transferred to med/surg 1) Hepatic Encephalopathy Ammonia 46 today, trend 80, 31, 71 Patient confused, refusing po meds at times. Will trend PT, INR, ammonia levels. Lactulose increased to 30gm po qid from tid stopped Rifaximin 550mg po bid Neomycin 500mg po q6 started GI consulted: Dr. Rao schreiber appreciated -paracentesis consult for IR: Dr. Marty schreiber appreciated -Type and Screen, PT/INR f/u --INR 2.2 today, given VitK 10mg sc once paracentesis cancelled. Patient is showing stable WBC, no fevers, abdominal tenderness lessening. 2) Dilated Common Bile Duct Abdominal US (04/11/18): Measures 8.4mm GI consulted: Dr. 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 Trend Psychiatry on board: Dr. Margarita schreiber appreciated -Haldol and Ativan prn orders -patient is more awake, although still not oriented. Tolerating chemical sedation better than 4 point restraints. Continue management as is. discussed with mother, who verbalizes understanding. 5) UTI Urine Cx: yeast species, GC/CT negative. Cipro discontinued Patient asymptomatic, continue to monitor. Abd US (04/11/18) 12mm nonobstructing stone in lower pole of left kidney 6) PPx Protonix 20mg po daily Holding anticoagulation due to fall risk, SCDs MVI Dispo: pending PT for potential d/c tomorrow Vickie Cummings PGY-1. Plan discussed with Dr. Malloy. <Ben Malloy - Last Filed: 04/20/18 08:24> Objective - Vital Signs/Intake and Output Vital Signs (last 24 hours): Temp Pulse Resp BP Pulse Ox 98.3 F 87 20 123/72 99 04/19/18 16:05 04/19/18 16:05 04/19/18 16:05 04/19/18 16:05 04/19/18 16:05 - Labs Labs: 04/19/18 10:57 04/19/18 10:57 PT 24.4 SECONDS (9.7-12.2) H 04/14/18 07:05 INR 2.2 04/14/18 07:05 Attending/Attestation - Attestation I have personally seen and examined this patient.: Yes I have fully participated in the care of the patient.: Yes I have reviewed all pertinent clinical information, including history, physical exam and plan: Yes Notes (Text): Seen and examined by me.awake and oriented to person and place .No date and time. No last night events Patient is unsteday . On 1:1. Agitation off sedation.Amonia level is down to 46 D/W resident PT evaluation for unsteady james,follow psychiatrist I agree with the resident's documentation.
[2018-04-14 17:21] VITALS: RESP 20
[2018-04-15 07:09] LABS: BASO % 0.9 % (0.0-2.0); EOS # 0.1 K/uL (0.0-0.7); EOS % 2.3 % (0.0-4.0); HEMOGLOBIN 10.4 g/dL (12.0-18.0); LYMPH # 0.6 K/uL (1.0-4.3); LYMPH % 16.5 % (20.0-40.0); MEAN CELL VOLUME 95.4 fL (80.0-94.0); MEAN CORPUSCULAR HEMOGLOBIN 33.6 pg (27.0-31.0); MEAN CORPUSCULAR HGB CONC 35.2 g/dL (33.0-37.0); MEAN PLATELET VOLUME 10.9 fL (7.2-11.7); MONO # 0.2 K/uL (0.0-0.8); MONO % 6.2 % (0.0-10.0); NEUT # 2.6 K/uL (1.8-7.0); NEUT % 74.1 % (50.0-75.0); NRBC % 0.1 % (0.0-2.0); RBC 3.11 Mil/uL (4.40-5.90); WHITE BLOOD COUNT 3.5 K/uL (4.8-10.8)
[2018-04-15 07:26] LABS: ALB/GLOB RATIO 0.5 (1.0-2.1); ALBUMIN 2.2 g/dL (3.5-5.0); ALT/SGPT 127 U/L (21-72); AST/SGOT 246 U/L (17-59); BLOOD UREA NITROGEN 14 mg/dL (9-20); CALCIUM 7.9 mg/dl (8.6-10.4); GFR AFRICAN-AMERICAN > 60; GFR NON-AFRICAN AMERICAN > 60
--- NOTE | 2018-04-15 08:59 | CP.PCM.PN ---
Subjective - Date & Time of Evaluation Date of Evaluation: 04/15/18 Time of Evaluation: 08:58 - Subjective Subjective: GI Fellow PGY4, Progress Note. Patient apparently agitated earlier this AM and given Ativan. Patient is sedated at time of my exam. No acute overnight events otherwise but patient is not participating with lactulose and have minimal BMs. No signs of pain, distress, fever. Unable to obtain 12pt ROS due to AMS. Objective - Vital Signs/Intake and Output Vital Signs (last 24 hours): Temp Pulse Resp BP Pulse Ox 98 F 90 20 135/76 98 04/15/18 08:27 04/15/18 08:27 04/15/18 08:27 04/15/18 08:27 04/15/18 08:27 Intake and Output: 04/15/18 04/15/18 06:59 18:59 Intake Total 710 Output Total 600 Balance 110 - Medications Medications: Current Medications Al Hydrox/Mg Hydrox/Simethicone (Maalox 30 Ml) 30 ml PO TID PRN PRN Reason: Indigestion / Heartburn Last Admin: 04/08/18 09:31 Dose: 30 ml Albuterol (Ventolin Hfa 90 Mcg/Actuation (8 G)) 1 puff INH RQ6 PRN PRN Reason: SOB Last Admin: 04/07/18 23:33 Dose: 1 puff Benztropine Mesylate (Cogentin) 1 mg PO DAILY [facility] Last Admin: 04/14/18 09:20 Dose: 1 mg Clonidine HCl (Catapres) 0.1 mg PO Q8 PRN PRN Reason: COWS Score More or Equal to 5 Cyclobenzaprine HCl (Flexeril) 5 mg PO TID [facility] Last Admin: 04/14/18 18:10 Dose: 5 mg Dicyclomine HCl (Bentyl) 10 mg PO Q6H PRN PRN Reason: muscle spasms Last Admin: 04/14/18 18:11 Dose: 10 mg Folic Acid (Folic Acid) 1 mg PO DAILY [facility] Last Admin: 04/14/18 09:19 Dose: 1 mg Gabapentin (Neurontin) 300 mg PO TID [facility] Last Admin: 04/14/18 18:10 Dose: 300 mg Haloperidol (Haldol) 5 mg PO BID [facility] Last Admin: 04/14/18 18:11 Dose: 5 mg Haloperidol Lactate (Haldol) 5 mg IM Q6 PRN PRN Reason: Agitation Hydroxyzine HCl (Atarax) 50 mg PO Q6H PRN PRN Reason: Anxiety Last Admin: 04/11/18 10:01 Dose: 50 mg Lactulose (Enulose) 30 gm PO QID [facility] Last Admin: 04/14/18 21:55 Dose: 30 gm Loperamide HCl (Imodium) 2 mg PO Q8 PRN PRN Reason: Diarrhea Last Admin: 04/08/18 09:31 Dose: 2 mg Lorazepam (Ativan) 1 mg IVP Q6H PRN PRN Reason: Anxiety Last Admin: 04/15/18 05:45 Dose: 1 mg Multivitamins (Hexavitamin) 1 tab PO DAILY [facility] Last Admin: 04/14/18 09:19 Dose: 1 tab Neomycin Sulfate (Neomycin Tab) 500 mg PO Q6 [facility] Last Admin: 04/15/18 05:58 Dose: 500 mg Ondansetron HCl (Zofran Tab) 4 mg PO Q8 PRN PRN Reason: Nausea/Vomiting Pantoprazole Sodium (Protonix Ec Tab) 20 mg PO DAILY [facility] Last Admin: 04/14/18 09:19 Dose: 20 mg Quetiapine Fumarate (Seroquel) 100 mg PO HS [facility] Last Admin: 04/14/18 21:56 Dose: 100 mg Thiamine HCl (Vitamin B1 Tab) 100 mg PO DAILY [facility] Last Admin: 04/14/18 09:19 Dose: 100 mg Trazodone HCl (Desyrel) 100 mg PO [facility] Last Admin: 04/14/18 21:55 Dose: 100 mg - Labs Labs: 04/15/18 07:02 04/15/18 07:02 PT 24.4 SECONDS (9.7-12.2) H 04/14/18 07:05 INR 2.2 04/14/18 07:05 - Constitutional Appears: Non-toxic, No Acute Distress, Older Than Stated Age, Chronically Ill - Head Exam Head Exam: ATRAUMATIC, NORMAL INSPECTION, NORMOCEPHALIC - Respiratory Exam Respiratory Exam: Clear to Ausculation Bilateral, NORMAL BREATHING PATTERN. absent: Wheezes, Stridor - Cardiovascular Exam Cardiovascular Exam: REGULAR RHYTHM, +S1, +S2 - GI/Abdominal Exam GI & Abdominal Exam: Distended, Normal Bowel Sounds. absent: Tenderness - Extremities Exam Extremities Exam: Full ROM, Normal Capillary Refill, Normal Inspection - Psychiatric Exam Psychiatric exam: Agitated - Skin Skin Exam: Dry, Intact, Normal Color Assessment and Plan - Assessment and Plan (Free Text) Assessment: 47M with hx of alcoholic cirrhosis, polysubstance abuse, HCV who was admitted to hospital for drug/alcohol detox and we were consulted for concern for hepatic encephalopathy and dilated CBD. #Decompensated cirrhosis - HE and ascites #HCV #Acute metabolic encephalopathy - HE +/- medication (haldol, trazadone, seroquel , ativan etc.) #Pancytopenia #Polysubstance abuse with w/d #Alcohol w/d #noncompliant with medical care Plan: -Continue supportive care -Continue neomycin 500mg Q6H PO -Change lactulose from po to rectal dosing. Avoid NG tube in possible varices and risk of bleeding. -Continue to re-evaluate need for sedatives. Defer to primary and psych. -Recommend paracentesis to r/o SBP as a possible etiology for altered mental status. Monitor of leukocytosis, fever, abdominal pain. FFP > Vitamin K to reduce INR in cirrhotics. -CT imaging confirms cirrhosis and no signs of HCC. -MELD score 22 -DF score 59. Prednisolone possibly beneficial if SBP ruled out. -CEA slightly elevated 7.3. Recommend colonoscopy as outpt. -CIWA score currently 0. Continue per psych. -CBD is 8.4mm in setting of opiate abuse and chronically elevated cholestatic pattern on liver tests plus U/S without evidence of gallstone. Continue to monitor liver tests and physical exam findings, currently no abdominal pain or fever. -Pancytopenia likely due to cirrhosis and bone marrow suppression from alcohol -Outpatient f/u for chronic HCV -No expected endoscopic procedures at this time. -Outpt EGD to r/o varicies.
[2018-04-15] MEDS: Multiple Vitamins Tab PO SCH ×2 (10:56→11:00)
[2018-04-15] MEDS: Pantoprazole 20 mg EC Tab PO SCH ×2 (10:56→11:00)
[2018-04-15] MEDS: Lactulose 10 gm/15 ml (Rectal Use) PR SCH ×3 (11:20→17:52)
--- NOTE | 2018-04-15 21:32 | CP.PCM.PN ---
Subjective - Date & Time of Evaluation Date of Evaluation: 04/15/18 Time of Evaluation: 13:30 - Subjective Subjective: PGY-[address] Malloy. Patient was seen and examined today at bedside in no acute distress. Nurse reports Ativan administration overnight due to excessive agitation. Patient disoriented and minimally arousable. Unable to obtain ROS. Objective - Vital Signs/Intake and Output Vital Signs (last 24 hours): Temp Pulse Resp BP Pulse Ox 100.6 F H 108 H 20 125/74 99 04/15/18 20:39 04/15/18 20:39 04/15/18 20:39 04/15/18 20:39 04/15/18 20:39 Intake and Output: 04/15/18 04/16/18 18:59 06:59 Intake Total 300 Output Total 300 Balance 0 - Medications Medications: Current Medications Al Hydrox/Mg Hydrox/Simethicone (Maalox 30 Ml) 30 ml PO TID PRN PRN Reason: Indigestion / Heartburn Last Admin: 04/08/18 09:31 Dose: 30 ml Albuterol (Ventolin Hfa 90 Mcg/Actuation (8 G)) 1 puff INH RQ6 PRN PRN Reason: SOB Last Admin: 04/07/18 23:33 Dose: 1 puff Benztropine Mesylate (Cogentin) 1 mg PO DAILY [facility] Last Admin: 04/15/18 10:52 Dose: 1 mg Clonidine HCl (Catapres) 0.1 mg PO Q8 PRN PRN Reason: COWS Score More or Equal to 5 Cyclobenzaprine HCl (Flexeril) 5 mg PO TID [facility] Last Admin: 04/15/18 18:00 Dose: 5 mg Dicyclomine HCl (Bentyl) 10 mg PO Q6H PRN PRN Reason: muscle spasms Last Admin: 04/14/18 18:11 Dose: 10 mg Folic Acid (Folic Acid) 1 mg PO DAILY [facility] Last Admin: 04/15/18 11:00 Dose: Not Given Gabapentin (Neurontin) 300 mg PO TID [facility] Last Admin: 04/15/18 17:52 Dose: 300 mg Haloperidol (Haldol) 5 mg PO BID [facility] Last Admin: 04/15/18 17:52 Dose: 5 mg Haloperidol Lactate (Haldol) 5 mg IM Q6 PRN PRN Reason: Agitation Hydroxyzine HCl (Atarax) 50 mg PO Q6H PRN PRN Reason: Anxiety Last Admin: 04/11/18 10:01 Dose: 50 mg Lactulose (Enulose) 30 gm PO QID [facility] Last Admin: 04/15/18 17:51 Dose: 30 gm Lactulose (Generlac) 200 gm [place] TID [facility] Last Admin: 04/15/18 17:52 Dose: Not Given Loperamide HCl (Imodium) 2 mg PO Q8 PRN PRN Reason: Diarrhea Last Admin: 04/08/18 09:31 Dose: 2 mg Lorazepam (Ativan) 1 mg IVP Q6H PRN PRN Reason: Anxiety Last Admin: 04/15/18 05:45 Dose: 1 mg Multivitamins (Hexavitamin) 1 tab PO DAILY [facility] Last Admin: 04/15/18 11:00 Dose: Not Given Neomycin Sulfate (Neomycin Tab) 500 mg PO Q6 [facility] Last Admin: 04/15/18 17:53 Dose: 500 mg Ondansetron HCl (Zofran Tab) 4 mg PO Q8 PRN PRN Reason: Nausea/Vomiting Pantoprazole Sodium (Protonix Ec Tab) 20 mg PO DAILY [facility] Last Admin: 04/15/18 11:00 Dose: Not Given Quetiapine Fumarate (Seroquel) 100 mg PO [facility] Last Admin: 04/14/18 21:56 Dose: 100 mg Thiamine HCl (Vitamin B1 Tab) 100 mg PO DAILY [facility] Last Admin: 04/15/18 11:00 Dose: Not Given Trazodone HCl (Desyrel) 100 mg PO [facility] Last Admin: 04/14/18 21:55 Dose: 100 mg - Labs Labs: 04/15/18 07:02 04/15/18 07:02 PT 24.4 SECONDS (9.7-12.2) H 04/14/18 07:05 INR 2.2 04/14/18 07:05 - Constitutional Appears: No Acute Distress - Head Exam Head Exam: ATRAUMATIC, NORMOCEPHALIC - Eye Exam Eye Exam: EOMI, Normal appearance, PERRL - ENT Exam ENT Exam: Mucous Membranes Moist, Normal Exam - Respiratory Exam Respiratory Exam: Clear to Ausculation Bilateral, NORMAL BREATHING PATTERN - Cardiovascular Exam Cardiovascular Exam: REGULAR RHYTHM, +S1, +S2. absent: Murmur - GI/Abdominal Exam GI & Abdominal Exam: Distended, Soft, Normal Bowel Sounds. absent: Guarding, Tenderness - Extremities Exam Extremities Exam: Full ROM, Normal Capillary Refill, Normal Inspection. absent : Joint Swelling, Pedal Edema - Neurological Exam Additional comments: minimally arousable. responsive to painful stimuli - Psychiatric Exam Additional comments: depressed affect - Skin Skin Exam: Dry, Intact, Normal Color, Warm Assessment and Plan - Assessment and Plan (Free Text) Plan: Medical consult, now transferred to med/surg 1) Hepatic Encephalopathy Ammonia trend decreased and stable Patient confused, refusing po meds at times. Stop trending PT, INR, ammonia levels. Lactulose increased to 30gm po qid from tid stopped Rifaximin 550mg po bid Neomycin 500mg po q6 started GI consulted: Dr. Rao schreiber appreciated -due to refusal of PO meds, added lactulose 200g pr tid -paracentesis consult for IR: Dr. Marty schreiber appreciated -paracentesis cancelled. Patient is showing stable WBC, no fevers, abdominal tenderness lessening. 2) Dilated Common Bile Duct Abdominal US (04/11/18): Measures 8.4mm GI consulted: Dr. Rao schreiber appreciated -continuing course above 3) Pancytopenia likely secondary to bone marrow suppression from chronic alcohol abuse Continue to trend WBC, Plt, and Hgb stable On folate and Vit B Holding EPO since pancytopenia likely due to chronic alcohol use 4) Active substance abuse: Alcohol and Heroin HIV negative continue alcohol and heroin detox per psychiatry detox team LFTs elevated. Trend Psychiatry on board: Dr. Margarita schreiber appreciated -Haldol and Ativan prn orders -Has not needed Haldol prn -patient is more awake, although still not oriented. Tolerating chemical sedation better than 4 point restraints. Continue management as is. discussed with mother, who verbalizes understanding. 5) UTI Urine Cx: yeast species, GC/CT negative. Cipro discontinued Patient asymptomatic, continue to monitor. Abd US (04/11/18) 12mm nonobstructing stone in lower pole of left kidney 6) PPx Protonix 20mg po daily Holding anticoagulation due to fall risk, SCDs MVI Dispo: pending PT for potential d/c tomorrow Vickie Cummings PGY-1. Plan discussed with Dr. Malloy.
[2018-04-16 06:40] LABS: BASO % 0.6 % (0.0-2.0); EOS # 0.1 K/uL (0.0-0.7); EOS % 2.3 % (0.0-4.0); HEMOGLOBIN 10.3 g/dL (12.0-18.0); LYMPH # 0.6 K/uL (1.0-4.3); LYMPH % 15.5 % (20.0-40.0); MEAN CELL VOLUME 95.4 fL (80.0-94.0); MEAN CORPUSCULAR HEMOGLOBIN 32.8 pg (27.0-31.0); MEAN CORPUSCULAR HGB CONC 34.4 g/dL (33.0-37.0); MEAN PLATELET VOLUME 11.2 fL (7.2-11.7); MONO # 0.3 K/uL (0.0-0.8); MONO % 6.6 % (0.0-10.0); NEUT # 2.9 K/uL (1.8-7.0); RBC 3.16 Mil/uL (4.40-5.90); RED CELL DISTRIBUTION WIDTH 16.1 % (11.5-14.5); WHITE BLOOD COUNT 3.9 K/uL (4.8-10.8)
[2018-04-16 06:48] LABS: ALB/GLOB RATIO 0.5 (1.0-2.1); ALBUMIN 2.1 g/dL (3.5-5.0); ALT/SGPT 117 U/L (21-72); AST/SGOT 210 U/L (17-59); BLOOD UREA NITROGEN 18 mg/dL (9-20); GFR AFRICAN-AMERICAN > 60; GFR NON-AFRICAN AMERICAN > 60
[2018-04-16] MEDS: Pantoprazole 20 mg EC Tab PO SCH (09:30)
[2018-04-16] MEDS: Multiple Vitamins Tab PO SCH (09:30)
[2018-04-16] MEDS: Lactulose 10 gm/15 ml (Rectal Use) PR SCH ×3 (09:34→18:06)
--- NOTE | 2018-04-16 14:58 | CP.PCM.PN ---
Subjective - Date & Time of Evaluation Date of Evaluation: 04/16/18 Time of Evaluation: 09:45 - Subjective Subjective: PGY 3 Med Progress Note- Dr. Malloy's service Patient seen and examined in no apparent acute distress. Patient was very somnolent earlier in the day. Per nursing, patient' s mother came to visit later in the afternoon. During the fact, patient became combative stating that he wanted to leave. Security had to be notified and LENARD ALLRED was called twice overhead. Patient was administered Haldol . Patient could not provide ROS. Objective - Vital Signs/Intake and Output Vital Signs (last 24 hours): Temp Pulse Resp BP Pulse Ox 98.8 F 94 H 20 123/67 97 04/16/18 08:00 04/16/18 08:00 04/16/18 08:00 04/16/18 08:00 04/16/18 00:00 Intake and Output: 04/16/18 04/16/18 06:59 18:59 Intake Total 950 Output Total 0 Balance 950 - Medications Medications: Current Medications Al Hydrox/Mg Hydrox/Simethicone (Maalox 30 Ml) 30 ml PO TID PRN PRN Reason: Indigestion / Heartburn Last Admin: 04/08/18 09:31 Dose: 30 ml Albuterol (Ventolin Hfa 90 Mcg/Actuation (8 G)) 1 puff INH RQ6 PRN PRN Reason: SOB Last Admin: 04/07/18 23:33 Dose: 1 puff Benztropine Mesylate (Cogentin) 1 mg PO DAILY [facility] Last Admin: 04/16/18 09:54 Dose: 1 mg Clonidine HCl (Catapres) 0.1 mg PO Q8 PRN PRN Reason: COWS Score More or Equal to 5 Cyclobenzaprine HCl (Flexeril) 5 mg PO TID [facility] Last Admin: 04/16/18 13:34 Dose: Not Given Dicyclomine HCl (Bentyl) 10 mg PO Q6H PRN PRN Reason: muscle spasms Last Admin: 04/14/18 18:11 Dose: 10 mg Folic Acid (Folic Acid) 1 mg PO DAILY [facility] Last Admin: 04/16/18 09:30 Dose: 1 mg Gabapentin (Neurontin) 300 mg PO TID [facility] Last Admin: 04/16/18 13:36 Dose: 300 mg Haloperidol (Haldol) 5 mg PO BID [facility] Last Admin: 04/16/18 10:01 Dose: Not Given Haloperidol Lactate (Haldol) 5 mg IM Q6 PRN PRN Reason: Agitation Hydroxyzine HCl (Atarax) 50 mg PO Q6H PRN PRN Reason: Anxiety Last Admin: 04/11/18 10:01 Dose: 50 mg Lactulose (Enulose) 30 gm PO QID [facility] Last Admin: 04/16/18 13:34 Dose: 30 gm Lactulose (Generlac) 200 gm [place] TID [facility] Last Admin: 04/16/18 13:34 Dose: Not Given Loperamide HCl (Imodium) 2 mg PO Q8 PRN PRN Reason: Diarrhea Last Admin: 04/08/18 09:31 Dose: 2 mg Lorazepam (Ativan) 1 mg IVP Q6H PRN PRN Reason: Anxiety Last Admin: 04/15/18 05:45 Dose: 1 mg Multivitamins (Hexavitamin) 1 tab PO DAILY [facility] Last Admin: 04/16/18 09:30 Dose: 1 tab Neomycin Sulfate (Neomycin Tab) 500 mg PO Q6 [facility] Last Admin: 04/16/18 12:00 Dose: 500 mg Ondansetron HCl (Zofran Tab) 4 mg PO Q8 PRN PRN Reason: Nausea/Vomiting Pantoprazole Sodium (Protonix Ec Tab) 20 mg PO DAILY [facility] Last Admin: 04/16/18 09:30 Dose: 20 mg Quetiapine Fumarate (Seroquel) [address] [facility] Last Admin: 04/15/18 22:16 Dose: 100 mg Thiamine HCl (Vitamin B1 Tab) 100 mg PO DAILY [facility] Last Admin: 04/16/18 09:30 Dose: 100 mg Trazodone HCl (Desyrel) [address] [facility] Last Admin: 04/15/18 22:16 Dose: 100 mg - Labs Labs: 04/16/18 06:27 04/16/18 06:27 PT 24.4 SECONDS (9.7-12.2) H 04/14/18 07:05 INR 2.2 04/14/18 07:05 - Constitutional Appears: Non-toxic, No Acute Distress, Combative - Head Exam Head Exam: ATRAUMATIC, NORMAL INSPECTION - Eye Exam Eye Exam: EOMI, Scleral icterus Pupil Exam: NORMAL ACCOMODATION - ENT Exam ENT Exam: Mucous Membranes Moist - Neck Exam Neck Exam: Full ROM - Respiratory Exam Respiratory Exam: NORMAL BREATHING PATTERN. absent: Wheezes - Cardiovascular Exam Cardiovascular Exam: +S1, +S2 - GI/Abdominal Exam GI & Abdominal Exam: Distended, Soft. absent: Guarding, Tenderness - Extremities Exam Extremities Exam: Full ROM - Neurological Exam Neurological Exam: Altered - Psychiatric Exam Psychiatric exam: Flat Affect - Skin Skin Exam: Dry (appears jaundiced ( mildly)), Warm. absent: Normal Color Assessment and Plan - Assessment and Plan (Free Text) Assessment: Hepatic Encephalopathy Ammonia decreased. F/U repeat Patient confused, refusing po meds at times. Stopped Rifaximin 550mg po bid Neomycin 500mg po q6 started GI consulted: Dr. Yeh - Outpatient workup (EGD) to rule out varices. Outpatient HCV management Dilated Common Bile Duct Abdominal US (04/11/18): Measures 8.4mm GI consulted: Dr. Yeh - help appreciated Pancytopenia Likely secondary to bone marrow suppression from chronic alcohol abuse Stable. Avoid exacerbating agents On folate and Vit B Holding EPO since patient is pancytopenic likely due to chronic alcohol use Active substance abuse: Alcohol and Heroin HIV negative continue alcohol and heroin detox per psychiatry detox team LFTs elevated. Psychiatry on board: Dr. Avila - candie appreciated -Haldol and Ativan prn orders as needed- administered during day team due to combativeness UTI Urine Cx: yeast species, GC/CT negative. Cipro discontinued Patient asymptomatic, continue to monitor. Abd US (04/11/18) 12mm nonobstructing stone in lower pole of left kidney HCV Chronic in nature Outpatient management and workup per GI Prophylactic Measure Protonix 20mg po daily Holding anticoagulation due to fall risk, SCDs
[2018-04-17 08:10] LABS: BASO % 0.4 % (0.0-2.0); EOS # 0.1 K/uL (0.0-0.7); EOS % 3.9 % (0.0-4.0); HEMOGLOBIN 10.4 g/dL (12.0-18.0); LYMPH # 0.6 K/uL (1.0-4.3); LYMPH % 22.8 % (20.0-40.0); MEAN CELL VOLUME 96.2 fL (80.0-94.0); MEAN CORPUSCULAR HEMOGLOBIN 33.2 pg (27.0-31.0); MEAN CORPUSCULAR HGB CONC 34.5 g/dL (33.0-37.0); MEAN PLATELET VOLUME 11.7 fL (7.2-11.7); MONO # 0.2 K/uL (0.0-0.8); MONO % 8.4 % (0.0-10.0); NEUT # 1.6 K/uL (1.8-7.0); NEUT % 64.5 % (50.0-75.0); NRBC % 0.1 % (0.0-2.0); RBC 3.13 Mil/uL (4.40-5.90); RED CELL DISTRIBUTION WIDTH 15.8 % (11.5-14.5); WHITE BLOOD COUNT 2.5 K/uL (4.8-10.8)
[2018-04-17 08:30] LABS: ALB/GLOB RATIO 0.5 (1.0-2.1); ALBUMIN 2.3 g/dL (3.5-5.0); ALT/SGPT 109 U/L (21-72); AST/SGOT 183 U/L (17-59); BLOOD UREA NITROGEN 15 mg/dL (9-20); CALCIUM 8.1 mg/dl (8.6-10.4); GFR AFRICAN-AMERICAN > 60; GFR NON-AFRICAN AMERICAN > 60
[2018-04-17] MEDS: Multiple Vitamins Tab PO SCH (10:56)
[2018-04-17] MEDS: Pantoprazole 20 mg EC Tab PO SCH (10:57)
[2018-04-17] MEDS: Lactulose 10 gm/15 ml (Rectal Use) PR SCH ×3 (10:57→17:15)
[2018-04-17] MEDS ORDERED: Magnesium Sulfate 1 gm in D5W 1 GM/100 ML BAG IVPB ONE (12:00)
--- NOTE | 2018-04-17 12:02 | CP.PCM.PN ---
<Cayetano Rodney - Last Filed: 04/17/18 12:13> Subjective - Date & Time of Evaluation Date of Evaluation: 04/17/18 Time of Evaluation: 08:11 - Subjective Subjective: PGY 3 Medicine Progress Note- Dr. Malloy's service Patient seen and examined in no apparent acute distress. No significant events overnight per nursing. Patient sleeping at the time. Per clinical partner, patient tends to be somnolent in the morning. ROS could not be obtained due to somnolence. Objective - Vital Signs/Intake and Output Vital Signs (last 24 hours): Temp Pulse Resp BP Pulse Ox 98.7 F 86 20 101/68 98 04/17/18 08:14 04/17/18 08:14 04/17/18 08:14 04/17/18 08:14 04/17/18 08:14 Intake and Output: 04/17/18 04/17/18 06:59 18:59 Intake Total 500 Balance 500 - Medications Medications: Current Medications Albuterol (Ventolin Hfa 90 Mcg/Actuation (8 G)) 1 puff INH RQ6 PRN PRN Reason: SOB Last Admin: 04/07/18 23:33 Dose: 1 puff Benztropine Mesylate (Cogentin) 1 mg PO DAILY [facility] Last Admin: 04/17/18 11:00 Dose: 1 mg Clonidine HCl (Catapres) 0.1 mg PO Q8 PRN PRN Reason: COWS Score More or Equal to 5 Dicyclomine HCl (Bentyl) 10 mg PO Q6H PRN PRN Reason: muscle spasms Last Admin: 04/14/18 18:11 Dose: 10 mg Folic Acid (Folic Acid) 1 mg PO DAILY [facility] Last Admin: 04/17/18 10:57 Dose: 1 mg Gabapentin (Neurontin) 300 mg PO BID [facility] Last Admin: 04/17/18 10:57 Dose: 300 mg Haloperidol (Haldol) 5 mg PO BID [facility] Last Admin: 04/16/18 18:07 Dose: Not Given Haloperidol Lactate (Haldol) 5 mg IM Q6 PRN PRN Reason: Agitation Hydroxyzine HCl (Atarax) 50 mg PO Q6H PRN PRN Reason: Anxiety Last Admin: 04/11/18 10:01 Dose: 50 mg Lactulose (Enulose) 30 gm PO QID [facility] Last Admin: 04/17/18 10:57 Dose: 30 gm Lactulose (Generlac) 200 gm RI TID [facility] Last Admin: 04/17/18 10:57 Dose: Not Given Loperamide HCl (Imodium) 2 mg PO Q8 PRN PRN Reason: Diarrhea Last Admin: 04/08/18 09:31 Dose: 2 mg Lorazepam (Ativan) 0.5 mg IVP Q6H PRN PRN Reason: Anxiety Multivitamins (Hexavitamin) 1 tab PO DAILY [facility] Last Admin: 04/17/18 10:56 Dose: 1 tab Neomycin Sulfate (Neomycin Tab) 500 mg PO Q6 [facility] Last Admin: 04/17/18 05:27 Dose: 500 mg Ondansetron HCl (Zofran Tab) 4 mg PO Q8 PRN PRN Reason: Nausea/Vomiting Pantoprazole Sodium (Protonix Ec Tab) 20 mg PO DAILY [facility] Last Admin: 04/17/18 10:57 Dose: 20 mg Quetiapine Fumarate (Seroquel) 100 mg PO [facility] Last Admin: 04/16/18 21:14 Dose: Not Given Thiamine HCl (Vitamin B1 Tab) 100 mg PO DAILY [facility] Last Admin: 04/17/18 10:57 Dose: 100 mg Trazodone HCl (Desyrel) 100 mg PO [facility] Last Admin: 04/16/18 21:12 Dose: 100 mg - Labs Labs: 04/17/18 07:53 04/17/18 07:53 PT 24.4 SECONDS (9.7-12.2) H 04/14/18 07:05 INR 2.2 04/14/18 07:05 - Constitutional Appears: Non-toxic, No Acute Distress - Head Exam Head Exam: ATRAUMATIC, NORMAL INSPECTION - Eye Exam Eye Exam: EOMI, Scleral icterus - ENT Exam ENT Exam: Mucous Membranes Moist - Respiratory Exam Respiratory Exam: NORMAL BREATHING PATTERN - Cardiovascular Exam Cardiovascular Exam: +S1, +S2 - GI/Abdominal Exam GI & Abdominal Exam: Distended, Soft. absent: Tenderness - Skin Skin Exam: Warm. absent: Normal Color Assessment and Plan - Assessment and Plan (Free Text) Assessment: Hepatic Encephalopathy Ammonia normalized. F/U repeat Patient somnolent at times- Often refusing po meds when he rouses. Neomycin 500mg po q6 GI consulted: Dr. Yeh - Outpatient workup (EGD) to rule out varices. Outpatient HCV management Dilated Common Bile Duct Abdominal US (04/11/18): Measures 8.4mm GI consulted: Dr. Yeh - help appreciated Pancytopenia Likely secondary to bone marrow suppression from chronic alcohol abuse Stable. Avoid exacerbating agents On Folate and Vit B12 Holding EPO since patient is pancytopenic Active substance abuse: Alcohol and Heroin HIV negative Continue alcohol and heroin detox per psychiatry detox team LFTs elevated. Stable Psychiatry on board: Dr. Avila - Will need to speak with psych for follow up management recommendations Haldol and Ativan prn orders PRN UTI Urine Cx: yeast species, GC/Chlaymdia negative. Patient asymptomatic, continue to monitor. Abd US (04/11/18) 12mm nonobstructing stone in lower pole of left kidney Electrolyte abnormality Magnesium low Repleted Monitor HCV Chronic in nature Outpatient management and workup per GI Prophylactic Measure Protonix 20mg po daily Holding anticoagulation due to pancytopenia SCDs for now <Ben Malloy - Last Filed: 04/17/18 14:06> Objective - Vital Signs/Intake and Output Vital Signs (last 24 hours): Temp Pulse Resp BP Pulse Ox 98.7 F 86 20 101/68 98 04/17/18 08:14 04/17/18 08:14 04/17/18 08:14 04/17/18 08:14 04/17/18 08:14 Intake and Output: 04/17/18 04/17/18 06:59 18:59 Intake Total 500 Balance 500 - Medications Medications: Current Medications Albuterol (Ventolin Hfa 90 Mcg/Actuation (8 G)) 1 puff INH RQ6 PRN PRN Reason: SOB Last Admin: 04/07/18 23:33 Dose: 1 puff Benztropine Mesylate (Cogentin) 1 mg PO DAILY [facility] Last Admin: 04/17/18 11:00 Dose: 1 mg Clonidine HCl (Catapres) 0.1 mg PO Q8 PRN PRN Reason: COWS Score More or Equal to 5 Dicyclomine HCl (Bentyl) 10 mg PO Q6H PRN PRN Reason: muscle spasms Last Admin: 04/14/18 18:11 Dose: 10 mg Folic Acid (Folic Acid) 1 mg PO DAILY [facility] Last Admin: 04/17/18 10:57 Dose: 1 mg Gabapentin (Neurontin) 300 mg PO BID [facility] Last Admin: 04/17/18 10:57 Dose: 300 mg Haloperidol (Haldol) 5 mg PO BID [facility] Last Admin: 04/16/18 18:07 Dose: Not Given Haloperidol Lactate (Haldol) 5 mg IM Q6 PRN PRN Reason: Agitation Hydroxyzine HCl (Atarax) 50 mg PO Q6H PRN PRN Reason: Anxiety Last Admin: 04/11/18 10:01 Dose: 50 mg Lactulose (Enulose) 30 gm PO QID [facility] Last Admin: 04/17/18 13:47 Dose: Not Given Lactulose (Generlac) 200 gm RI TID [facility] Last Admin: 04/17/18 13:47 Dose: Not Given Loperamide HCl (Imodium) 2 mg PO Q8 PRN PRN Reason: Diarrhea Last Admin: 04/08/18 09:31 Dose: 2 mg Lorazepam (Ativan) 0.5 mg IVP Q6H PRN PRN Reason: Anxiety Multivitamins (Hexavitamin) 1 tab PO DAILY [facility] Last Admin: 04/17/18 10:56 Dose: 1 tab Neomycin Sulfate (Neomycin Tab) 500 mg PO Q6 [facility] Last Admin: 04/17/18 12:29 Dose: 500 mg Ondansetron HCl (Zofran Tab) 4 mg PO Q8 PRN PRN Reason: Nausea/Vomiting Pantoprazole Sodium (Protonix Ec Tab) 20 mg PO DAILY [facility] Last Admin: 04/17/18 10:57 Dose: 20 mg Quetiapine Fumarate (Seroquel) 100 mg PO [facility] Last Admin: 04/16/18 21:14 Dose: Not Given Thiamine HCl (Vitamin B1 Tab) 100 mg PO DAILY [facility] Last Admin: 04/17/18 10:57 Dose: 100 mg Trazodone HCl (Desyrel) 100 mg PO [facility] Last Admin: 04/16/18 21:12 Dose: 100 mg - Labs Labs: 04/17/18 07:53 04/17/18 07:53 PT 24.4 SECONDS (9.7-12.2) H 04/14/18 07:05 INR 2.2 04/14/18 07:05 Attending/Attestation - Attestation I have personally seen and examined this patient.: Yes I have fully participated in the care of the patient.: Yes I have reviewed all pertinent clinical information, including history, physical exam and plan: Yes Notes (Text): Seen and examined by me He is sleeping in the morning. When he wakes up he become agitated and trying to leave. Discussed with the 1;1 play writer. Patient is very confused/ disoriented and psychotic .He had his breakfast We will continue 1:1 observation follow up with psychiatrist His Ativan dose reduced from 2mg to 0.5mg ,Off Flexeril due to sedation. Patient lives with his mother. she visits him. d/w Resident I agree with the documentation of the assessment and the plan.
[2018-04-18 06:49] LABS: BASO % 0.4 % (0.0-2.0); EOS # 0.1 K/uL (0.0-0.7); EOS % 4.7 % (0.0-4.0); HEMOGLOBIN 10.1 g/dL (12.0-18.0); LYMPH # 0.7 K/uL (1.0-4.3); LYMPH % 22.2 % (20.0-40.0); MEAN CELL VOLUME 96.8 fL (80.0-94.0); MEAN CORPUSCULAR HEMOGLOBIN 33.3 pg (27.0-31.0); MEAN CORPUSCULAR HGB CONC 34.4 g/dL (33.0-37.0); MEAN PLATELET VOLUME 11.8 fL (7.2-11.7); MONO # 0.3 K/uL (0.0-0.8); MONO % 9.7 % (0.0-10.0); NEUT # 1.9 K/uL (1.8-7.0); NRBC % 0.1 % (0.0-2.0); RBC 3.04 Mil/uL (4.40-5.90); RED CELL DISTRIBUTION WIDTH 16.1 % (11.5-14.5); WHITE BLOOD COUNT 2.9 K/uL (4.8-10.8)
[2018-04-18 07:22] LABS: ALB/GLOB RATIO 0.5 (1.0-2.1); ALBUMIN 1.9 g/dL (3.5-5.0); ALT/SGPT 98 U/L (21-72); AST/SGOT 160 U/L (17-59); BLOOD UREA NITROGEN 14 mg/dL (9-20); CALCIUM 7.7 mg/dl (8.6-10.4); GFR AFRICAN-AMERICAN > 60; GFR NON-AFRICAN AMERICAN > 60
[2018-04-18] MEDS: Multiple Vitamins Tab PO SCH (09:52)
[2018-04-18] MEDS: Pantoprazole 20 mg EC Tab PO SCH (09:52)
[2018-04-18] MEDS: Lactulose 10 gm/15 ml (Rectal Use) PR SCH (09:54)
--- NOTE | 2018-04-18 13:28 | CP.PCM.PN ---
Subjective - Date & Time of Evaluation Date of Evaluation: 04/18/18 Time of Evaluation: 13:28 - Subjective Subjective: GI Fellow PGY4, progress note. Patient seen and examined at bedside. He is much more awake today but is not oriented to time. He knows he is in a hospital. No complaints of abdominal pain , fever, nausea or vomiting. Patient had BM today and is compliant with lactulose. 12pt ROS completed and negative except for as above. Objective - Vital Signs/Intake and Output Vital Signs (last 24 hours): Temp Pulse Resp BP Pulse Ox 98.8 F 85 20 147/78 95 04/18/18 09:04 04/18/18 09:04 04/18/18 09:04 04/18/18 09:04 04/18/18 09:04 Intake and Output: 04/18/18 04/18/18 06:59 18:59 Intake Total 550 Balance 550 - Medications Medications: Current Medications Albuterol (Ventolin Hfa 90 Mcg/Actuation (8 G)) 1 puff INH RQ6 PRN PRN Reason: SOB Last Admin: 04/07/18 23:33 Dose: 1 puff Benztropine Mesylate (Cogentin) 1 mg PO DAILY [facility] Last Admin: 04/18/18 09:57 Dose: 1 mg Clonidine HCl (Catapres) 0.1 mg PO Q8 PRN PRN Reason: COWS Score More or Equal to 5 Dicyclomine HCl (Bentyl) 10 mg PO Q6H PRN PRN Reason: muscle spasms Last Admin: 04/14/18 18:11 Dose: 10 mg Folic Acid (Folic Acid) 1 mg PO DAILY [facility] Last Admin: 04/18/18 09:52 Dose: 1 mg Gabapentin (Neurontin) 300 mg PO BID [facility] Last Admin: 04/18/18 09:52 Dose: 300 mg Haloperidol (Haldol) 5 mg PO BID [facility] Last Admin: 04/16/18 18:07 Dose: Not Given Haloperidol Lactate (Haldol) 5 mg IM Q6 PRN PRN Reason: Agitation Hydroxyzine HCl (Atarax) 50 mg PO Q6H PRN PRN Reason: Anxiety Last Admin: 04/11/18 10:01 Dose: 50 mg Lactulose (Enulose) 30 gm PO QID [facility] Last Admin: 04/18/18 09:53 Dose: 30 gm Lactulose (Generlac) 200 gm OR TID [facility] Last Admin: 04/18/18 09:54 Dose: Not Given Loperamide HCl (Imodium) 2 mg PO Q8 PRN PRN Reason: Diarrhea Last Admin: 04/08/18 09:31 Dose: 2 mg Lorazepam (Ativan) 0.5 mg IVP Q6H PRN PRN Reason: Anxiety Multivitamins (Hexavitamin) 1 tab PO DAILY [facility] Last Admin: 04/18/18 09:52 Dose: 1 tab Neomycin Sulfate (Neomycin Tab) 500 mg PO Q6 [facility] Last Admin: 04/18/18 05:05 Dose: 500 mg Ondansetron HCl (Zofran Tab) 4 mg PO Q8 PRN PRN Reason: Nausea/Vomiting Pantoprazole Sodium (Protonix Ec Tab) 20 mg PO DAILY [facility] Last Admin: 04/18/18 09:52 Dose: 20 mg Quetiapine Fumarate (Seroquel) 100 mg PO HS [facility] Last Admin: 04/17/18 21:46 Dose: 100 mg Thiamine HCl (Vitamin B1 Tab) 100 mg PO DAILY [facility] Last Admin: 04/18/18 10:02 Dose: 100 mg Trazodone HCl (Desyrel) 100 mg PO [facility] Last Admin: 04/17/18 21:46 Dose: 100 mg - Labs Labs: 04/18/18 06:32 04/18/18 06:32 PT 24.4 SECONDS (9.7-12.2) H 04/14/18 07:05 INR 2.2 04/14/18 07:05 - Constitutional Appears: Non-toxic, No Acute Distress, Chronically Ill - Head Exam Head Exam: ATRAUMATIC, NORMAL INSPECTION, NORMOCEPHALIC - Eye Exam Eye Exam: EOMI, Normal appearance, PERRL - ENT Exam ENT Exam: Mucous Membranes Moist, Normal Exam - Respiratory Exam Respiratory Exam: Clear to Ausculation Bilateral, NORMAL BREATHING PATTERN. absent: Wheezes - Cardiovascular Exam Cardiovascular Exam: REGULAR RHYTHM, +S1, +S2 - GI/Abdominal Exam GI & Abdominal Exam: Distended, Soft, Normal Bowel Sounds. absent: Tenderness Additional comments: positive fluid wave - Neurological Exam Neurological Exam: Alert, Awake, CN II-XII Intact. absent: Oriented x3 - Psychiatric Exam Psychiatric exam: Normal Affect, Normal Mood - Skin Skin Exam: Dry, Intact, Normal Color Assessment and Plan - Assessment and Plan (Free Text) Assessment: 47M with hx of alcoholic cirrhosis, polysubstance abuse, HCV who was admitted to hospital for drug/alcohol detox and we were consulted for concern for hepatic encephalopathy and dilated CBD. #Decompensated cirrhosis - HE and ascites #HCV #Acute metabolic encephalopathy - Improving. HE +/- medication (haldol, trazadone, seroquel, ativan etc.) #Pancytopenia #Polysubstance abuse with w/d #Alcohol w/d - resolved #noncompliant with medical care Plan: -Continue supportive care -Continue neomycin 500mg Q6H PO until 04/21/18 -Continue oral lactulose for goal BMs 1-2 per day now that he is more awake. I will d/c rectal lactulose. -Avoid NG tube in possible varices and risk of bleeding. -Continue to re-evaluate need for sedatives. Defer to primary and psych. -Recommend paracentesis to r/o SBP as a possible etiology for altered mental status. Monitor for leukocytosis, fever, abdominal pain. FFP > Vitamin K to reduce INR in cirrhotics. -CT imaging confirms cirrhosis and no signs of HCC. -MELD score 18 (improving) -CEA slightly elevated 7.3. Recommend colonoscopy as outpt. -CIWA score currently 0. Continue per psych. -CBD is 8.4mm in setting of opiate abuse and chronically elevated cholestatic pattern on liver tests plus U/S without evidence of gallstone. Continue to monitor liver tests and physical exam findings, currently no abdominal pain or fever. -Pancytopenia likely due to cirrhosis and bone marrow suppression from alcohol -Outpatient f/u for chronic HCV -No expected endoscopic procedures at this time. -Outpt EGD to r/o varicies. -We will sign-off at this point. Please call us for any remaining questions. Thank you for this interesting consult.
--- NOTE | 2018-04-18 21:43 | CP.PCM.PN ---
Subjective - Date & Time of Evaluation Date of Evaluation: 04/18/18 Time of Evaluation: 08:30 - Subjective Subjective: PGY-[address] Roblero Patient was seen and examined today at bedside in no acute distress. Nurse reported no overnight events. Patient reports no acute problems. Denies chest pain, shortness of breath, abdominal pain, nausea, vomiting, diarrhea. Objective - Vital Signs/Intake and Output Vital Signs (last 24 hours): Temp Pulse Resp BP Pulse Ox 98.3 F 89 20 115/69 98 04/18/18 15:00 04/18/18 15:00 04/18/18 15:00 04/18/18 18:04 04/18/18 15:00 Intake and Output: 04/18/18 04/19/18 18:59 06:59 Intake Total 500 Balance 500 - Medications Medications: Current Medications Albuterol (Ventolin Hfa 90 Mcg/Actuation (8 G)) 1 puff INH RQ6 PRN PRN Reason: SOB Last Admin: 04/07/18 23:33 Dose: 1 puff Benztropine Mesylate (Cogentin) 1 mg PO DAILY [facility] Last Admin: 04/18/18 09:57 Dose: 1 mg Clonidine HCl (Catapres) 0.1 mg PO Q8 PRN PRN Reason: COWS Score More or Equal to 5 Dicyclomine HCl (Bentyl) 10 mg PO Q6H PRN PRN Reason: muscle spasms Last Admin: 04/14/18 18:11 Dose: 10 mg Folic Acid (Folic Acid) 1 mg PO DAILY [facility] Last Admin: 04/18/18 09:52 Dose: 1 mg Furosemide (Lasix) 20 mg IVP DAILY [facility] Last Admin: 04/18/18 18:04 Dose: 20 mg Gabapentin (Neurontin) 300 mg PO BID [facility] Last Admin: 04/18/18 18:05 Dose: 300 mg Haloperidol (Haldol) 5 mg PO BID [facility] Last Admin: 04/16/18 18:07 Dose: Not Given Haloperidol Lactate (Haldol) 5 mg IM Q6 PRN PRN Reason: Agitation Hydroxyzine HCl (Atarax) 50 mg PO Q6H PRN PRN Reason: Anxiety Last Admin: 04/11/18 10:01 Dose: 50 mg Lactulose (Enulose) 30 gm PO QID [facility] Last Admin: 04/18/18 21:30 Dose: 30 gm Loperamide HCl (Imodium) 2 mg PO Q8 PRN PRN Reason: Diarrhea Last Admin: 04/08/18 09:31 Dose: 2 mg Lorazepam (Ativan) 0.5 mg IVP Q6H PRN PRN Reason: Anxiety Multivitamins (Hexavitamin) 1 tab PO DAILY [facility] Last Admin: 04/18/18 09:52 Dose: 1 tab Neomycin Sulfate (Neomycin Tab) 500 mg PO Q6 [facility] Stop: 04/21/18 23:59 Last Admin: 04/18/18 18:05 Dose: 500 mg Ondansetron HCl (Zofran Tab) 4 mg PO Q8 PRN PRN Reason: Nausea/Vomiting Pantoprazole Sodium (Protonix Ec Tab) 20 mg PO DAILY [facility] Last Admin: 04/18/18 09:52 Dose: 20 mg Quetiapine Fumarate (Seroquel) 100 mg PO HS [facility] Last Admin: 04/18/18 21:29 Dose: 100 mg Thiamine HCl (Vitamin B1 Tab) 100 mg PO DAILY [facility] Last Admin: 04/18/18 10:02 Dose: 100 mg Trazodone HCl (Desyrel) 100 mg PO [facility] Last Admin: 04/18/18 21:29 Dose: 100 mg - Labs Labs: 04/18/18 06:32 04/18/18 06:32 PT 24.4 SECONDS (9.7-12.2) H 04/14/18 07:05 INR 2.2 04/14/18 07:05 - Constitutional Appears: Non-toxic, No Acute Distress - Head Exam Head Exam: ATRAUMATIC, NORMOCEPHALIC - Eye Exam Eye Exam: EOMI, Normal appearance, PERRL - ENT Exam ENT Exam: Mucous Membranes Moist, Normal Exam - Respiratory Exam Respiratory Exam: Clear to Ausculation Bilateral, NORMAL BREATHING PATTERN. absent: Rales, Rhonchi, Wheezes - Cardiovascular Exam Cardiovascular Exam: REGULAR RHYTHM, +S1, +S2. absent: Rubs, Murmur - GI/Abdominal Exam GI & Abdominal Exam: Distended, Soft, Normal Bowel Sounds. absent: Tenderness Additional comments: fluid wave present - Extremities Exam Extremities Exam: Full ROM, Normal Capillary Refill, Normal Inspection. absent : Joint Swelling, Pedal Edema Additional comments: line in left arm - Neurological Exam Neurological Exam: Alert, Awake, CN II-XII Intact, Oriented x3 - Psychiatric Exam Psychiatric exam: Normal Affect, Normal Mood - Skin Skin Exam: Dry, Intact, Normal Color, Warm Assessment and Plan - Assessment and Plan (Free Text) Plan: Hepatic Encephalopathy Ammonia normalized, no longer trending Patient somnolent at times- Often refusing po meds when he rouses. Lactulose 30gm po qid for goal 3-4 BM per day. Had 2 today. Per rectum lactulose stopped since patient is cooperative and taking PO. Neomycin 500mg po q6 Added Lasix 20mg po daily GI consulted: Dr. eYh - Outpatient workup (EGD) to rule out varices. Outpatient HCV management Dilated Common Bile Duct Abdominal US (04/11/18): Measures 8.4mm GI consulted: Dr. Yeh - help appreciated Pancytopenia Likely secondary to bone marrow suppression from chronic alcohol abuse Stable. Avoid exacerbating agents On Folate and Vit B12 Holding EPO since patient is pancytopenic Active substance abuse: Alcohol and Heroin HIV negative Continue alcohol and heroin detox per psychiatry detox team LFTs elevated. Stable Psychiatry on board: Dr. Avila - Will need to speak with psych for follow up management recommendations Haldol and Ativan prn orders PRN UTI Urine Cx: yeast species, GC/Chlaymdia negative. Patient asymptomatic, continue to monitor. Abd US (04/11/18) 12mm nonobstructing stone in lower pole of left kidney Electrolyte abnormality Magnesium low Repleted Monitor HCV Chronic in nature Outpatient management and workup per GI Prophylactic Measure Protonix 20mg po daily Holding anticoagulation due to pancytopenia MVI SCDs for now Patient evaluated by PT: recommend TCU. For discharge 04/19. Vickie Cummings PGY-1. Plans discussed with Dr. Roblero.
[2018-04-19] MEDS: Pantoprazole 20 mg EC Tab PO SCH (09:54)
[2018-04-19] MEDS: Multiple Vitamins Tab PO SCH (09:54)
[2018-04-19 11:16] LABS: ALB/GLOB RATIO 0.5 (1.0-2.1); ALT/SGPT 102 U/L (21-72); AST/SGOT 152 U/L (17-59); BLOOD UREA NITROGEN 13 mg/dL (9-20); CALCIUM 7.6 mg/dl (8.6-10.4); GFR AFRICAN-AMERICAN > 60; GFR NON-AFRICAN AMERICAN > 60
[2018-04-19 11:20] LABS: BASO % 0.3 % (0.0-2.0); EOS # 0.1 K/uL (0.0-0.7); EOS % 5.1 % (0.0-4.0); LYMPH # 0.6 K/uL (1.0-4.3); MEAN CELL VOLUME 96.5 fL (80.0-94.0); MEAN CORPUSCULAR HEMOGLOBIN 32.6 pg (27.0-31.0); MEAN CORPUSCULAR HGB CONC 33.8 g/dL (33.0-37.0); MEAN PLATELET VOLUME 10.8 fL (7.2-11.7); MONO # 0.2 K/uL (0.0-0.8); MONO % 8.6 % (0.0-10.0); NEUT # 1.7 K/uL (1.8-7.0); NRBC % 0.4 % (0.0-2.0); RBC 3.06 Mil/uL (4.40-5.90); WHITE BLOOD COUNT 2.7 K/uL (4.8-10.8)
[2018-04-19 16:07] VITALS: BP 123/72; PULSE 87; TEMP 98.3; O2SAT 99
--- NOTE | 2018-04-19 21:51 | CP.PCM.DIS ---
Provider - Provider Date of Admission: 04/06/18 15:16 Attending physician: Aroldo Roblero MD Time Spent in preparation of Discharge (in minutes): 60 Diagnosis - Discharge Diagnosis (1) Hepatic encephalopathy Status: Acute Hospital Course - Lab Results Lab Results: Micro Results 04/06/18 Unknown Urine,Clean Catch Urine Culture - Final Yeast Species Most Recent Lab Values WBC 2.7 K/uL (4.8-10.8) L 04/19/18 10:57 RBC 3.06 Mil/uL (4.40-5.90) L 04/19/18 10:57 Hgb 10.0 g/dL (12.0-18.0) L 04/19/18 10:57 Hct 29.5 % (35.0-51.0) L 04/19/18 10:57 MCV 96.5 fL (80.0-94.0) H 04/19/18 10:57 MCH 32.6 pg (27.0-31.0) H 04/19/18 10:57 MCHC 33.8 g/dL (33.0-37.0) 04/19/18 10:57 RDW 16.0 % (11.5-14.5) H 04/19/18 10:57 Plt Count 42 K/uL (130-400) L 04/19/18 10:57 MPV 10.8 fL (7.2-11.7) 04/19/18 10:57 Neut % (Auto) 65.0 % (50.0-75.0) 04/19/18 10:57 Lymph % (Auto) 21.0 % (20.0-40.0) 04/19/18 10:57 Ritchie % (Auto) 8.6 % (0.0-10.0) 04/19/18 10:57 Eos % (Auto) 5.1 % (0.0-4.0) H 04/19/18 10:57 Baso % (Auto) 0.3 % (0.0-2.0) 04/19/18 10:57 Neut # (Auto) 1.7 K/uL (1.8-7.0) L 04/19/18 10:57 Lymph # (Auto) 0.6 K/uL (1.0-4.3) L 04/19/18 10:57 Ritchie # (Auto) 0.2 K/uL (0.0-0.8) 04/19/18 10:57 Eos # (Auto) 0.1 K/uL (0.0-0.7) 04/19/18 10:57 Baso # (Auto) 0.0 K/uL (0.0-0.2) 04/19/18 10:57 Differential Comment 04/17/18 07:53 PT 24.4 SECONDS (9.7-12.2) H 04/14/18 07:05 INR 2.2 04/14/18 07:05 Sodium 139 mmol/L (132-148) 04/19/18 10:57 Potassium 3.7 mmol/L (3.6-5.2) 04/19/18 10:57 Chloride 108 mmol/L (98-107) H 04/19/18 10:57 Carbon Dioxide 23 mmol/L (22-30) 04/19/18 10:57 Anion Gap 12 (10-20) 04/19/18 10:57 BUN 13 mg/dL (9-20) 04/19/18 10:57 Creatinine 0.8 mg/dL (0.8-1.5) 04/19/18 10:57 Est GFR ( Amer) > 60 04/19/18 10:57 Est GFR (Non-Af Amer) > 60 04/19/18 10:57 Random Glucose 143 mg/dL (75-110) H 04/19/18 10:57 Calcium 7.6 mg/dl (8.6-10.4) L 04/19/18 10:57 Phosphorus 3.4 mg/dL (2.5-4.5) 04/18/18 06:32 Magnesium 1.5 mg/dL (1.6-2.3) L 04/18/18 06:32 Total Bilirubin 3.0 mg/dL (0.2-1.3) H 04/19/18 10:57 Direct Bilirubin 2.2 mg/dL (0.0-0.4) H 04/11/18 07:16 AST 152 U/L (17-59) H 04/19/18 10:57 ALT 102 U/L (21-72) H 04/19/18 10:57 Alkaline Phosphatase 124 U/L (38-126) 04/19/18 10:57 Ammonia 32 umol/L (9-33) D 04/19/18 08:38 Total Protein 5.9 g/dL (6.3-8.3) L 04/19/18 10:57 Albumin 2.0 g/dL (3.5-5.0) L 04/19/18 10:57 Globulin 3.9 gm/dL (2.2-3.9) 04/19/18 10:57 Albumin/Globulin Ratio 0.5 (1.0-2.1) L 04/19/18 10:57 Amylase 67 U/L (30-110) 04/09/18 08:43 Lipase 213 U/L (23-300) 04/09/18 08:43 Alpha Fetoprotein 4.3 ng/mL (0.0-7.5) 04/13/18 08:55 Carcinoembryonic Ag 7.3 ng/mL (0-3.0) H 04/13/18 08:55 Urine Color [place] (YELLOW) 04/06/18 13:14 Urine Clarity Hazy (Clear) 04/06/18 13:14 Urine pH 5.0 (5.0-8.0) 04/06/18 13:14 Ur Specific [place] 1.024 (1.003-1.030) 04/06/18 13:14 Urine Protein 1+ mg/dL (NEGATIVE) H 04/06/18 13:14 Urine Glucose (UA) Normal mg/dL (Normal) 04/06/18 13:14 Urine Ketones Negative mg/dL (NEGATIVE) 04/06/18 13:14 Urine Blood 3+ (NEGATIVE) H 04/06/18 13:14 Urine Nitrate Negative (NEGATIVE) 04/06/18 13:14 Urine Bilirubin Negative (NEGATIVE) 04/06/18 13:14 Urine Urobilinogen 4.0 mg/dL (0.2-1.0) 04/06/18 13:14 Ur Leukocyte Esterase 3+ Nancy/uL (Negative) H 04/06/18 13:14 Urine WBC (Auto) 409 /hpf (0-5) H 04/06/18 13:14 Urine RBC (Auto) 34 /hpf (0-3) H 04/06/18 13:14 Calcium Oxalate Crystal Occ /hpf (<OCC) H 04/06/18 13:14 Urine Bacteria Occ (<OCC) H 04/06/18 13:14 Urine Opiates Screen Positive (NEGATIVE) H 04/06/18 13:14 Urine Methadone Screen Negative (NEGATIVE) 04/06/18 13:14 Ur Barbiturates Screen Negative (NEGATIVE) 04/06/18 13:14 Ur Phencyclidine Scrn Negative (NEGATIVE) 04/06/18 13:14 Ur Amphetamines Screen Negative (NEGATIVE) 04/06/18 13:14 U Benzodiazepines Scrn Positive (NEGATIVE) 04/06/18 13:14 U Oth Cocaine Metabols Positive (NEGATIVE) H 04/06/18 13:14 U Cannabinoids Screen Negative (NEGATIVE) 04/06/18 13:14 Alcohol, Quantitative < 10 mg/dl (0-10) 04/06/18 13:05 C.trachomatis RNA (TMA) Not detected (Not Detected) 04/06/18 15:49 HIV 1&2 Antibody Screen Negative (NEGATIVE) 04/09/18 13:43 N.gonorrhoeae RNA (TMA) Not detected (Not Detected) 04/06/18 15:49 Blood Type A POSITIVE 04/14/18 07:05 Antibody Screen Negative 04/14/18 07:05 - Hospital Course Hospital Course: Patient is a 47 year old male with PMHx of nephrolithiasis, Hepatitis C, leukopenia and substance abuse. Patient is currently being hospitalized in detox unit for alcohol and heroin detox. Patient admits to drinking 10 60-oz beers a day intermittently for the past few years as well as injecting 20 bags of heroin daily. Patient states he was told he needs to detox from alcohol so he can be treated for his Hepatitis C. Patient denies history of HIV. He states he has been told for some time that he has "low blood counts." Patient states he is supposed to have surgery later next week for removal of kidney stones. Patient does not recall name of urologist, but states he is located in [place]. Patient reports prior history of surgical intervention for stones but does not know exact procedure. Patient states he wants to go to [facility] after his surgery. Patient reports only complaint currently is generalized fatigue and discomfort from his detox. Medicine team consulted for leukopenia. PMD: Lito Allergies: denies PMHx: leukopenia, nephrolithiasis, Hepatitis C PSHx: intervention for nephrolithiasis FamHx: denies Social: drinks 10 60-oz beers daily, uses 20 bags heroin daily IV Patient was originally admitted to [facility] for heroin and alcohol detox. This was his third attempt at detox, and he has never been to rehab. After beginning detox protocol, his bloodwork showed a pancytopenia and the medicine team was consulted on the case. His pancytopenia and LFTs continued to be concerning and he was transferred onto the medicine service as he completed detox protocol. A UTI was also discovered and the patient was started on antibiotics. Abdominal CT showed hepatic cirrhosis and moderate amount of abdominal and pelvic ascites. There was marked splenomegaly and a 14mm calculus presumably within the left of the UPJ/distal left renal pelvis with dilatation as well as two additional non obstructing stones. Patient was extremely combative and disoriented when first came onto medical floor, verbally and physically threatening hospital staff and visitors. He required 4 point restraints and chemical sedation for the first 24 hours. He voiced understanding of cooperation and was released off of 4 point restraints in favor of chemical sedation upon reappearing aggression. As his ammonium level decreased with lactulose and rifixamin (switched to neomycin), his confusion resolved and he needed chemical sedation for agitation and aggression less often. Primary Diagnoses: hepatic encephalopathy, pancytopenia, Alcohol abuse, Heroin Abuse, UTI, Hx Hepatitis C with cirrhosis Eat balanced meals incorporating fruits, vegetables and protein. Drink plenty of water throughout the day at least 8 to 10 cups. Sleep is extremely important in your recovery. Follow Up Appointments: Medical Floor Patient stable for discharge per Dr. Roblero. Patient should take these new medications as prescribed. Patient should also make an appointment and follow up with PMD within one week for resolved hepatic encephalopathy and GI for dilated common bile duct. Patient should return to the ED immediately if symptoms return or worsen. instructions discussed with patient and family who understood and agreed. Newly prescribed medications: Cogentin 1mg by mouth daily Clonidine 0.1mg by mouth 3 times a day Folic acid 1mg by mouth daily Lasix 20mg by mouth daily Neurontin 300mg by mouth twice a day Haldol 5mg by mouth twice a day Lactulose 30gm by mouth 4 times a day Multivitamin 1 tab per day Neomycin 500mg by mouth four times a day Seroquel 100mg by mouth at night VitB supplement 1 tab per day This is a summary of the hospital course. Please access the EMR for more detailed information. - Date & Time of H&P Date of H&P: 04/19/18 Time of H&P: 15:45 Discharge Exam - Head Exam Head Exam: ATRAUMATIC, NORMOCEPHALIC - Eye Exam Eye Exam: EOMI, Normal appearance, PERRL - ENT Exam ENT Exam: Mucous Membranes Moist, Normal Exam - Respiratory Exam Respiratory Exam: Clear to PA & Lateral, NORMAL BREATHING PATTERN. absent: Decreased Breath Sounds, Rales, Rhonchi, Wheezes - Cardiovascular Exam Cardiovascular Exam: REGULAR RHYTHM, +S1, +S2. absent: Systolic Murmur - GI/Abdominal Exam GI & Abdominal Exam: Distended, Normal Bowel Sounds, Soft, Unremarkable Discharge Plan - Discharge Medications Prescriptions: Benztropine [Cogentin] 1 mg PO DAILY #30 tab cloNIDine [Catapres] 0.1 mg PO Q8 PRN #90 tab PRN Reason: COWS Score More or Equal to 5 Folic Acid 1 mg PO DAILY #30 tab Furosemide [Lasix] 20 mg PO DAILY #30 tab Gabapentin [Neurontin] 300 mg PO BID #30 cap Haloperidol [Haldol] 5 mg PO BID #30 tab Lactulose [Enulose] 30 gm PO QID #16 udc Multivitamins [Hexavitamin] 1 tab PO DAILY #30 tab Neomycin Sulfate [Neomycin Tab] 500 mg PO Q6 #12 tab QUEtiapine [Seroquel] 100 mg PO HS #30 tab Thiamine HCl [B-1] 100 mg PO DAILY 30 Days #30 tablet - Follow Up Plan Condition: FAIR Disposition: HOME/ ROUTINE Instructions: Drug Abuse and Drug Addiction (DC), Prescription Drug Abuse (DC) , Drug Abuse Treatment, Urinary Tract Infection in Men (DC) Additional Instructions: Discharge Hotline Numbers: [place] [facility] 24 Hour Hotline: 026-114 HELP (7156) AA- Alcoholics Anonymous 24 Hour Hotline: 2-565-852- 1527 NA- Narcotics Anonymous 24 Hour Hotline: [place] [facility] Hotline - [place] Quitline If needed you can reach the detox unit at Avoid all mood and mind altering substances including alcohol. Make every effort to make 90 meetings in 90 days and obtain a sponsor and get involved in 12 step recovery. Follow up with you primary doctor for your medical needs Nutrition: Eat balanced meals incorporating fruits, vegetables and protein. Drink plenty of water throughout the day at least 8 to 10 cups. Sleep is extremely important in your recovery. Follow Up Appointments: Medical Floor Patient stable for discharge per Dr. Roblero. Patient should take these new medications as prescribed. Patient should also make an appointment and follow up with PMD within one week for resolved hepatic encephalopathy and GI for dilated common bile duct. Patient should return to the ED immediately if symptoms return or worsen. instructions discussed with patient and family who understood and agreed. Newly prescribed medications: Cogentin 1mg by mouth daily Clonidine 0.1mg by mouth 3 times a day Folic acid 1mg by mouth daily Lasix 20mg by mouth daily Neurontin 300mg by mouth twice a day Haldol 5mg by mouth twice a day Lactulose 30gm by mouth 4 times a day Multivitamin 1 tab per day Neomycin 500mg by mouth four times a day Seroquel 100mg by mouth at night VitB supplement 1 tab per day
== END 2018-04-19 18:50 | disposition home or self-care (01) | DRG 744 ==
LOC: C.ER 12:06 → C.7D 15:16 → C.3T 04-11 13:34
PROVIDERS: ADMIT Internal Medicine; ATTEND Internal Medicine
PROC: HZ2ZZZZ Detoxification Services for Substance Abuse Treatment (ICD-10-PCS; principal; 2018-04-06)
PROC: GZHZZZZ Group Psychotherapy (ICD-10-PCS; 2018-04-06)
DX: F11.23 Opioid dependence with withdrawal (principal); K70.31 Alcoholic cirrhosis of liver with ascites; D61.818 Other pancytopenia; N39.0 Urinary tract infection, site not specified; B19.20 Unspecified viral hepatitis C without hepatic coma; G31.2 Degeneration of nervous system due to alcohol; G93.41 Metabolic encephalopathy; J45.909 Unspecified asthma, uncomplicated; K83.8 Other specified diseases of biliary tract; Z78.1 Physical restraint status; F17.210 Nicotine dependence, cigarettes, uncomplicated; Z87.891 Personal history of nicotine dependence; Z91.19 Patient's noncompliance with other medical treatment and regimen; N20.0 Calculus of kidney; F19.10 Other psychoactive substance abuse, uncomplicated; F14.10 Cocaine abuse, uncomplicated

== ENCOUNTER 2018-04-24 11:42 | Emergency (ER) | payer MEDICAID ==
--- NOTE | 2018-04-24 12:49 | C.PDOC ---
History Of Present Illness 47 y/o male brought to ED by EMS after mother found patient unresponsive after using IV heroin. As per mother, pt had fever yesterday. Pt was recently seen here for UTI. Mother notes that patient's abdomen is becoming progressively distended and states pt drinks alcohol and uses heroin on a daily basis. He has known history of alcoholic liver disease. At present time, pt is arousable to verbal stimuli. He refuses any further testing, states he will come back tomorrow. Denies any physical complaints at this time. Time Seen by Provider: 04/24/18 12:29 Chief Complaint (Nursing): Substance Abuse History Per: Patient, EMS, Family History/Exam Limitations: no limitations Onset/Duration Of Symptoms: Gradual Current Symptoms Are (Timing): Still Present Modifying Factor(s): Alcohol Associated Symptoms: denies: Suicidal Thoughts, Suicidal Plan Involuntary Hold By: None Recent travel outside of the [place]: No Additional History Per: Patient Past Medical History Reviewed: Historical Data, Nursing Documentation, Vital Signs Vital Signs: Last Vital Signs Temp 99.7 F H 04/24/18 11:52 Pulse 128 H 04/24/18 11:52 Resp 20 04/24/18 11:52 BP 133/92 H 04/24/18 11:52 Pulse Ox 97 04/24/18 12:52 - Medical History PMH: Arthritis, Asthma, Fractures (right arm), Hepatitis (C), Hiatal Hernia, Kidney Stones Denies: Diabetes, HIV, HTN, Chronic Kidney Disease, Seizures, Sexually Transmitted Disease Surgical History: Denies: Coronary Stent - [facility] Procedures COMBINED ALCOHOL AND DRUG DETOXIFICATION (09/04/14) DETOXIFICATION SERVICES FOR SUBSTANCE ABUSE TREATMENT (04/06/18) DILATION OF LEFT URETER WITH INTRALUMINAL DEVICE, ENDO (09/21/17) EXTIRPATION OF MATTER FROM LEFT URETER, ENDO (09/21/17) GROUP PHYSICAL THERAPY RESIDENT FOR SUBSTANCE ABUSE TREATMENT, PSYCHOEDUCATION (02/16/18) GROUP PHYSICAL THERAPY RESIDENT FOR SUBSTANCE ABUSE, COGNITIVE BEHAVIORAL (02/16/18) GROUP PSYCHOTHERAPY (04/06/18) INDIV PSYCHOTHERAPY FOR SUBSTANCE ABUSE TREATMENT, SUPPORT (02/16/18) INDIV PSYCHOTHERAPY FOR SUBSTANCE ABUSE, COGNITIV BEHAVIORAL (02/16/18) INDIV PSYCHOTHERAPY FOR SUBSTANCE ABUSE, PSYCHOEDUCATION (02/16/18) REMOVAL OF INTRALUMINAL DEVICE FROM URETER, ENDO (09/21/17) TRANSFUSE NONAUT FROZEN PLASMA IN PERIPH VEIN, PERC (09/21/17) TRANSFUSE NONAUT PLATELETS IN PERIPH VEIN, PERC (09/21/17) Family History: States: Unknown Family Hx - Social History Hx Tobacco Use: Yes Hx Alcohol Use: Yes Hx Substance Use: Yes - Immunization History Hx Tetanus Toxoid Vaccination: No Hx Influenza Vaccination: No Hx Pneumococcal Vaccination: No Review Of Systems Except As Marked, All Systems Reviewed And Found Negative. Constitutional: Negative for: Fever, Chills Cardiovascular: Negative for: Chest Pain, Palpitations Respiratory: Negative for: Cough, Shortness of Breath Gastrointestinal: Negative for: Nausea, Vomiting, Abdominal Pain Physical Exam - Physical Exam Appears: Non-toxic, No Acute Distress Skin: Warm, Dry, Diaphoretic Head: Atraumatic, Normacephalic Eye(s): bilateral: Normal Inspection Oral Mucosa: Moist Neck: Supple Cardiovascular: Rhythm Regular Respiratory: Normal Breath Sounds, No Rales, No Rhonchi, No Wheezing Gastrointestinal/Abdominal: Soft, No Tenderness, Distention, No Guarding, No Rebound Extremity: Normal ROM Neurological/Psych: No Normal Speech (slurred), Other (arousable to verbal stimuli) ED Course And Treatment O2 Sat by Pulse Oximetry: 97 Pulse Ox Interpretation: Normal Reevaluation Time: 14:09 Reassessment Condition: Improved (Patient awake and alert with steady gait. Requesting discharge. BP and heart rate improved.) Disposition Counseled Patient/Family Regarding: Need For Followup - Disposition Referrals: [facility] [Outside] Disposition: HOME/ ROUTINE Disposition Time: 14:10 Condition: IMPROVED Instructions: Opioid Use Disorder Forms: [employer] (Burmese) - Clinical Impression Clinical Impression: Drug dependence, Alcohol dependence - Scribe Statement The provider has reviewed the documentation as recorded by the Scribe KP All medical record entries made by the Scribe were at my direction and personally dictated by me. I have reviewed the chart and agree that the record accurately reflects my personal performance of the history, physical exam, medical decision making, and the department course for this patient. I have also personally directed, reviewed, and agree with the discharge instructions and disposition.
[2018-04-24 14:14] VITALS: BP 121/94; PULSE 106; RESP 18; TEMP 99; O2SAT 96
== END 2018-04-24 14:17 | disposition home or self-care (01) ==
LOC: C.ER 11:42
DX: F10.20 Alcohol dependence, uncomplicated (principal); F19.20 Other psychoactive substance dependence, uncomplicated; Z72.0 Tobacco use

== ENCOUNTER 2018-04-26 21:02 | Inpatient (IN) | payer MEDICAID ==
[2018-04-26] MEDS ORDERED: Albuterol-Ipratrop 3 mg / 0.5 (3 ml) UD ONE (21:37)
[2018-04-26 22:21] LABS: BASO % 0.3 % (0.0-2.0); EOS # 0.2 K/uL (0.0-0.7); EOS % 4.3 % (0.0-4.0); HEMOGLOBIN 10.5 g/dL (12.0-18.0); LYMPH # 0.4 K/uL (1.0-4.3); LYMPH % 7.8 % (20.0-40.0); MEAN CELL VOLUME 97.8 fL (80.0-94.0); MEAN CORPUSCULAR HEMOGLOBIN 32.8 pg (27.0-31.0); MEAN CORPUSCULAR HGB CONC 33.5 g/dL (33.0-37.0); MONO # 0.4 K/uL (0.0-0.8); MONO % 7.7 % (0.0-10.0); NEUT # 3.8 K/uL (1.8-7.0); NEUT % 79.9 % (50.0-75.0); NRBC % 0.1 % (0.0-2.0); PLATELET COUNT 40 K/uL (130-400); RBC 3.22 Mil/uL (4.40-5.90); RED CELL DISTRIBUTION WIDTH 17.1 % (11.5-14.5)
[2018-04-26 22:27] LABS: WHITE BLOOD COUNT 4.7 K/uL (4.8-10.8)
[2018-04-26 22:29] LABS: INR 2.3; PROTHROMBIN TIME 24.9 SECONDS (9.7-12.2)
[2018-04-26 22:47] LABS: B-TYPE NATRIURETIC PEPTIDE 73.6 pg/mL (0-450)
[2018-04-26 22:52] LABS: BANDS 1 % (0-2); EOSINOPHIL 3 % (0-4); LYMPHOCYTE 13 % (20-40); MONOCYTE 5 % (0-10); NEUTROPHIL 78 % (50-75); TOTAL CELLS COUNTED 100
[2018-04-26 22:53] LABS: ALB/GLOB RATIO 0.6 (1.0-2.1); ALBUMIN 2.5 g/dL (3.5-5.0); ALT/SGPT 79 U/L (21-72); ANISOCYTOSIS SLIGHT; AST/SGOT 124 U/L (17-59); BLOOD UREA NITROGEN 11 mg/dL (9-20); CALCIUM 8.5 mg/dl (8.6-10.4); GFR AFRICAN-AMERICAN > 60; GFR NON-AFRICAN AMERICAN > 60; HYPOCHROMIC SLIGHT; PLATELET ESTIMATE DECREASED (NORMAL); POIKILOCYTOSIS SLIGHT; TARGET CELLS SLIGHT
--- NOTE | 2018-04-26 22:57 | C.PDOC ---
History Of Present Illness Patient seen tonite due to onset of feeling SOB for few days. Dnies any ches pain or cough. Chief Complaint (Nursing): Shortness Of Breath History Per: Patient History/Exam Limitations: no limitations Onset/Duration Of Symptoms: Days Current Symptoms Are (Timing): Still Present Initiating Event: Other (not taking his diuretics.) Exacerbating Factor(s): Exertion, Laying Flat Current Respiratory Medications: Diuretic Pain Scale Rating Of: 0 Associated Symptoms: Ankle/Leg Swelling. denies: Fever, Chills, Sweating, Chest Pain, Bloody Cough, Productive Cough, Heart Racing, Leg/Calf Pain, Dizziness, Light-headedness, Anxiety, Tingling In Hands Or Face Recent travel outside of the [place]: No Additional History Per: Family Past Medical History Vital Signs: Last Vital Signs Temp 98.6 F 04/26/18 21:27 Pulse 107 H 04/27/18 00:27 Resp 16 04/27/18 00:27 BP 143/96 H 04/27/18 00:27 Pulse Ox 100 04/27/18 00:27 - Medical History PMH: Arthritis, Asthma, Fractures (right arm), Hepatitis (C), Hiatal Hernia, Kidney Stones Denies: Diabetes, HIV, HTN, Chronic Kidney Disease, Seizures, Sexually Transmitted Disease Other PMH: Hx of chronic alcoholism. Surgical History: Denies: Coronary Stent - [facility] Procedures COMBINED ALCOHOL AND DRUG DETOXIFICATION (09/04/14) DETOXIFICATION SERVICES FOR SUBSTANCE ABUSE TREATMENT (04/06/18) DILATION OF LEFT URETER WITH INTRALUMINAL DEVICE, ENDO (09/21/17) EXTIRPATION OF MATTER FROM LEFT URETER, ENDO (09/21/17) GROUP STATISTICAL GENETICIST FOR SUBSTANCE ABUSE TREATMENT, PSYCHOEDUCATION (02/16/18) GROUP STATISTICAL GENETICIST FOR SUBSTANCE ABUSE, COGNITIVE BEHAVIORAL (02/16/18) GROUP PSYCHOTHERAPY (04/06/18) INDIV PSYCHOTHERAPY FOR SUBSTANCE ABUSE TREATMENT, SUPPORT (02/16/18) INDIV PSYCHOTHERAPY FOR SUBSTANCE ABUSE, COGNITIV BEHAVIORAL (02/16/18) INDIV PSYCHOTHERAPY FOR SUBSTANCE ABUSE, PSYCHOEDUCATION (02/16/18) REMOVAL OF INTRALUMINAL DEVICE FROM URETER, ENDO (09/21/17) TRANSFUSE NONAUT FROZEN PLASMA IN PERIPH VEIN, PERC (09/21/17) TRANSFUSE NONAUT PLATELETS IN PERIPH VEIN, PERC (09/21/17) Family History: States: Unknown Family Hx - Social History Hx Tobacco Use: Yes Hx Alcohol Use: Yes Hx Substance Use: Yes - Immunization History Hx Tetanus Toxoid Vaccination: No Hx Influenza Vaccination: No Hx Pneumococcal Vaccination: No Review Of Systems Constitutional: Negative for: Fever, Chills, Sweats, Weakness Eyes: Negative for: Pain, Vision Change, Conjunctivae Inflammation ENT: Negative for: Ear Pain, Ear Discharge, Nose Pain, Nose Discharge, Nose Congestion Cardiovascular: Positive for: Orthopnea, Edema. Negative for: Chest Pain, Palpitations, Paroxysmal Noc. Dyspnea, Light Headedness Respiratory: Positive for: Shortness of Breath, SOB with Excertion. Negative for: Cough, Hemoptysis, Pleuritic Pain, Sputum Gastrointestinal: Positive for: Abdominal Pain, Other (ascites). Negative for: Nausea, Vomiting, Diarrhea Genitourinary: Positive for: Other (swelling of genitalia). Negative for: Dysuria, Frequency, Incontinence, Hematuria, Penile Discharge Musculoskeletal: Negative for: Neck Pain, Shoulder Pain, Arm Pain Skin: Negative for: Rash, Lesions Neurological: Negative for: Weakness, Numbness, Incoordination, Confusion, Seizures, Altered Mental Status Psych: Negative for: Depression, Suicidal ideation, Withdrawal Physical Exam - Physical Exam Appears: Non-toxic, Other (moderate distress due to SOB) Skin: Normal Color, Warm, Dry Eye(s): bilateral: Normal Inspection, PERRL, EOMI Nose: Normal Oral Mucosa: Moist Tongue: Normal Appearing Lips: Normal Appearing Neck: Normal ROM, Supple (engorged neck veins at 45 degree angulation.), Other Chest: Symmetrical, No Deformity, No Tenderness Cardiovascular: Rhythm Regular Respiratory: Normal Breath Sounds, No Rales, Rhonchi, No Stridor, No Wheezing Gastrointestinal/Abdominal: Organomegaly, Distention, No Guarding, Hernia ( umbilical hernia), Ascites Back: Normal Inspection Male Genital: Other (edema of genitalia) Extremity: Pedal Edema, Swelling ED Course And Treatment - Laboratory Results Result Diagrams: 04/26/18 22:16 04/26/18 22:16 ECG: Interpreted By Me, Viewed By Me ECG Rhythm: Sinus Tachycardia ECG Interpretation: Normal, No Acute Changes Interpretation Of ECG: Sinus tachycardia, otherwise normal tracoings. Rate From EC O2 Sat by Pulse Oximetry: 98 Pulse Ox Interpretation: Normal - Radiology CXR: Interpreted by Me, Viewed By Me CXR Interpretation: Yes: Cardiomegaly, Other (pulmonary congestion/CHF) Disposition Discussed With DrKedar: Ricardo Weiss Doctor Will See Patient In The: Hospital Counseled Patient/Family Regarding: Diagnosis - Disposition Disposition: HOSPITALIZED Disposition Time: 01:06 Condition: STABLE Forms: [facility] (Persian) - POA Present On Arrival: None - Clinical Impression Clinical Impression: Hepatic failure, Dyspnea, Ascites, CHF (congestive heart failure)
--- NOTE | 2018-04-27 01:12 | CP.PCM.HP ---
<Antonio Best R - Last Filed: 04/27/18 01:25> Meds Allergies/Adverse Reactions: Allergies Allergy/AdvReac Type Severity Reaction Status Date / Time No Known Allergies Allergy Verified 04/26/18 21:30 Results - Vital Signs Recent Vital Signs: Last Vital Signs Temp 98.6 F 04/26/18 21:27 Pulse 107 H 04/27/18 00:27 Resp 16 04/27/18 00:27 BP 143/96 H 04/27/18 00:27 Pulse Ox 98 04/27/18 01:07 - Labs Result Diagrams: 04/26/18 22:16 04/26/18 22:16 Labs: Laboratory Results - last 24 hr 04/26/18 04/26/18 04/26/18 22:16 22:16 22:16 WBC 4.7 L D RBC 3.22 L Hgb 10.5 L Hct 31.4 L MCV 97.8 H MCH 32.8 H MCHC 33.5 RDW 17.1 H Plt Count 40 L MPV 11.0 Neut % (Auto) 79.9 H Lymph % (Auto) 7.8 L Williamson % (Auto) 7.7 Eos % (Auto) 4.3 H Baso % (Auto) 0.3 Neut # (Auto) 3.8 Lymph # (Auto) 0.4 L Williamson # (Auto) 0.4 Eos # (Auto) 0.2 Baso # (Auto) 0.0 Neutrophils % (Manual) 78 H Band Neutrophils % 1 Lymphocytes % (Manual) 13 L Monocytes % (Manual) 5 Eosinophils % (Manual) 3 Platelet Estimate Decreased L Hypochromasia (manual) Slight Poikilocytosis (manual Slight Anisocytosis (manual) Slight Target Cells Slight PT 24.9 H INR 2.3 APTT 40 H Sodium 140 Potassium 4.4 Chloride 105 Carbon Dioxide 26 Anion Gap 13 BUN 11 Creatinine 0.8 Est GFR ( Amer) > 60 Est GFR (Non-Af Amer) > 60 Random Glucose 142 H Calcium 8.5 L Magnesium 1.5 L Total Bilirubin 5.5 H AST 124 H ALT 79 H D Alkaline Phosphatase 157 H D Ammonia Troponin I < 0.0120 NT-Pro-B Natriuret Pep 73.6 Total Protein 6.8 Albumin 2.5 L D Globulin 4.4 H Albumin/Globulin Ratio 0.6 L 04/26/18 22:16 WBC RBC Hgb Hct MCV MCH MCHC RDW Plt Count MPV Neut % (Auto) Lymph % (Auto) Williamson % (Auto) Eos % (Auto) Baso % (Auto) Neut # (Auto) Lymph # (Auto) Williamson # (Auto) Eos # (Auto) Baso # (Auto) Neutrophils % (Manual) Band Neutrophils % Lymphocytes % (Manual) Monocytes % (Manual) Eosinophils % (Manual) Platelet Estimate Hypochromasia (manual) Poikilocytosis (manual Anisocytosis (manual) Target Cells PT INR APTT Sodium Potassium Chloride Carbon Dioxide Anion Gap BUN Creatinine Est GFR ( Amer) Est GFR (Non-Af Amer) Random Glucose Calcium Magnesium Total Bilirubin AST ALT Alkaline Phosphatase Ammonia 32 Troponin I NT-Pro-B Natriuret Pep Total Protein Albumin Globulin Albumin/Globulin Ratio <Parvin Enrique - Last Filed: 04/27/18 04:21> History of Present Illness - History of Present Illness History of Present Illness: Medicine Note for Hospitalist Service CC: shortness of breath HPI: This is a 47 year old male with PMHx of Hepatic Encephalopathy 2/2 cirrhosis, Untreated Hepatitis C (HCC ruled out), pancytopenia, Spleenomegaly, Nephrolithasis, Polysubstance abuse who presents to the ED with shortness of breath. Patient was recently admitted in April 09- April 19, 2018 for alcohol and heroine detox who was found to have decompensated cirrhosis, acute metabolic encephalopathy, and treated for UTI. Patient reports his abdomen has been becoming distended over the past 3-4 weeks. However, within the last week the shortness of breath has become more severe due to the increase in size of his abdomen. Patient is currently still drinking alcohol and using IV heroine. Denied any associated fever, chills, headache, chest pain, n/v/d/c, or urinary symptoms. PMD: Lito PMHx: Hepatic Encephalopathy 2/2 cirrhosis, Untreated Hepatitis C (HCC ruled out ), pancytopenia, Nephrolithasis, Polysubstance abuse PSHx: intervention for nephrolithiasis Meds: Cogentin 1mg by mouth daily Clonidine 0.1mg by mouth 3 times a day Folic acid 1mg by mouth daily Lasix 20mg by mouth daily Neurontin 300mg by mouth twice a day Haldol 5mg by mouth twice a day Lactulose 30gm by mouth 4 times a day Multivitamin 1 tab per day Neomycin 500mg by mouth four times a day Seroquel 100mg by mouth at night Allergies: denies SHx: drinks 10 60-oz beers daily, uses 20 bags heroin daily IV FHx: denies Present on Admission - Present on Admission Any Indicators Present on Admission: No Past Patient History - Infectious Disease Hx of Infectious Diseases: None - Past Medical History & Family History Past Medical History?: Yes - Past Social History Smoking Status: Heavy Smoker > 10 Cigarettes Daily - CARDIAC Hx Hypertension: No - PULMONARY Hx Asthma: Yes - NEUROLOGICAL Hx Seizures: No - HEENT Hx HEENT Problems: No - RENAL Hx Chronic Kidney Disease: No Hx Kidney Stones: Yes - ENDOCRINE/METABOLIC Hx Endocrine Disorders: No - HEMATOLOGICAL/ONCOLOGICAL Hx Human Immunodeficiency Virus (HIV): No - INTEGUMENTARY Hx Dermatological Problems: No - MUSCULOSKELETAL/RHEUMATOLOGICAL Hx Arthritis: Yes Hx Fractures: Yes (right arm) - GASTROINTESTINAL Other/Comment: right groin hernia - GENITOURINARY/GYNECOLOGICAL Hx Sexually Transmitted Disorders: No - PSYCHIATRIC Hx Substance Use: Yes - SURGICAL HISTORY Hx Coronary Stent: No - ANESTHESIA Hx Anesthesia: Yes Hx Anesthesia Reactions: No Hx Malignant Hyperthermia: No Physical Exam - Constitutional Appears: No Acute Distress, Chronically Ill - Head Exam Head Exam: ATRAUMATIC, NORMAL INSPECTION, NORMOCEPHALIC - Eye Exam Eye Exam: EOMI, Normal appearance, PERRL, Scleral icterus. absent: Nystagmus - ENT Exam ENT Exam: Mucous Membranes Dry - Respiratory Exam Respiratory Exam: Clear to Auscultation Bilateral, NORMAL BREATHING PATTERN. absent: Decreased Breath Sounds, Rales, Rhonchi, Wheezes - Cardiovascular Exam Cardiovascular Exam: Tachycardia - GI/Abdominal Exam GI & Abdominal Exam: Firm, Hernia, Organomegaly (splenomegaly ), Tenderness. absent: Guarding, Mass Additional comments: + fluid wave shift, + ascites - Rectal Exam Rectal Exam: Deferred - Extremities Exam Extremities exam: Positive for: normal inspection, pedal edema, tenderness, pedal pulses present - Neurological Exam Neurological exam: Alert, CN II-XII Intact, Oriented x3 - Psychiatric Exam Psychiatric exam: Normal Affect, Normal Mood - Skin Skin Exam: Dry, Intact, Normal Color, Warm Results - Vital Signs Recent Vital Signs: Last Vital Signs Temp 98.6 F 04/26/18 21:27 Pulse 107 H 07/18/18 00:27 Resp 16 04/27/18 00:27 BP 143/96 H 04/27/18 00:27 Pulse Ox 98 04/27/18 01:07 - Labs Result Diagrams: 04/26/18 22:16 04/26/18 22:16 Labs: Laboratory Results - last 24 hr 04/26/18 04/26/18 04/26/18 22:16 22:16 22:16 WBC 4.7 L D RBC 3.22 L Hgb 10.5 L Hct 31.4 L MCV 97.8 H MCH 32.8 H MCHC 33.5 RDW 17.1 H Plt Count 40 L MPV 11.0 Neut % (Auto) 79.9 H Lymph % (Auto) 7.8 L Williamson % (Auto) 7.7 Eos % (Auto) 4.3 H Baso % (Auto) 0.3 Neut # (Auto) 3.8 Lymph # (Auto) 0.4 L Williamson # (Auto) 0.4 Eos # (Auto) 0.2 Baso # (Auto) 0.0 Neutrophils % (Manual) 78 H Band Neutrophils % 1 Lymphocytes % (Manual) 13 L Monocytes % (Manual) 5 Eosinophils % (Manual) 3 Platelet Estimate Decreased L Hypochromasia (manual) Slight Poikilocytosis (manual Slight Anisocytosis (manual) Slight Target Cells Slight PT 24.9 H INR 2.3 APTT 40 H Sodium 140 Potassium 4.4 Chloride 105 Carbon Dioxide 26 Anion Gap 13 BUN 11 Creatinine 0.8 Est GFR ( Amer) > 60 Est GFR (Non-Af Amer) > 60 Random Glucose 142 H Calcium 8.5 L Magnesium 1.5 L Total Bilirubin 5.5 H AST 124 H ALT 79 H D Alkaline Phosphatase 157 H D Ammonia Troponin I < 0.0120 NT-Pro-B Natriuret Pep 73.6 Total Protein 6.8 Albumin 2.5 L D Globulin 4.4 H Albumin/Globulin Ratio 0.6 L 04/26/18 22:16 WBC RBC Hgb Hct MCV MCH MCHC RDW Plt Count MPV Neut % (Auto) Lymph % (Auto) Williamson % (Auto) Eos % (Auto) Baso % (Auto) Neut # (Auto) Lymph # (Auto) Williamson # (Auto) Eos # (Auto) Baso # (Auto) Neutrophils % (Manual) Band Neutrophils % Lymphocytes % (Manual) Monocytes % (Manual) Eosinophils % (Manual) Platelet Estimate Hypochromasia (manual) Poikilocytosis (manual Anisocytosis (manual) Target Cells PT INR APTT Sodium Potassium Chloride Carbon Dioxide Anion Gap BUN Creatinine Est GFR ( Amer) Est GFR (Non-Af Amer) Random Glucose Calcium Magnesium Total Bilirubin AST ALT Alkaline Phosphatase Ammonia 32 Troponin I NT-Pro-B Natriuret Pep Total Protein Albumin Globulin Albumin/Globulin Ratio Assessment & Plan - Assessment and Plan (Free Text) Plan: Decompensated Liver Cirrhosis Hx Metabolic Encephalopathy Untreated HCV Alcohol Use Disorder Pancytopenia Ascites - MELD 22 (improving) - CT confirmed cirrhosis, no evidence of HCC - Ammonia - WNL - Will resume Lactulose 30gm QID, titrate down for more than 2-3 BMs / day; resumed lasix 20mg PO daily - Due to elevated INR, 2 FFP will be given to prepare for diagnostic and therapeutic thoracentesis - All cytology ordered, rule out SBP, x 1 dose rocephin for prophylaxis Transasminitis - Hepatitis C positive, untreated - Downtrending from previous visit - Avoid hepatoxic agents Polysubstance Use Disorder IVDA, Alcohol Use Disorder - Cessation encouraged - HIV negative, Hep C positive - Aspiration, Seizure, CIWA protocol - Ativan PRN, MV, Thiamine, and folic acid daily Nephrolithiasis - Noted on Abd US (04/11/18) 12mm nonobstructing stone in lower pole of left kidney Hx Dilated CBD - Abdominal US (04/11/18): Measures 8.4mm; no evidence of gallstone - CEA slightly elevated 7.3. Recommend colonoscopy as outpt - Outpt EGD to r/o varicies Prophylactic Measures - GI PPX: Protonix, - DVT PPX: SCDs, VTE c/i due to thrombocytopenia - PT/OT DW Parvin Reynolds DO, PGY-2 <Ricardo Weiss - Last Filed: 04/27/18 06:21> Results - Vital Signs Recent Vital Signs: Last Vital Signs Temp 98.8 F 04/27/18 04:50 Pulse 98 H 04/27/18 04:50 Resp 20 04/27/18 04:50 BP 144/79 04/27/18 04:50 Pulse Ox 100 04/27/18 04:50 - Labs Result Diagrams: 04/26/18 22:16 04/26/18 22:16 Labs: Laboratory Results - last 24 hr 04/26/18 04/26/18 04/26/18 22:16 22:16 22:16 WBC 4.7 L D RBC 3.22 L Hgb 10.5 L Hct 31.4 L MCV 97.8 H MCH 32.8 H MCHC 33.5 RDW 17.1 H Plt Count 40 L MPV 11.0 Neut % (Auto) 79.9 H Lymph % (Auto) 7.8 L Williamson % (Auto) 7.7 Eos % (Auto) 4.3 H Baso % (Auto) 0.3 Neut # (Auto) 3.8 Lymph # (Auto) 0.4 L Williamson # (Auto) 0.4 Eos # (Auto) 0.2 Baso # (Auto) 0.0 Neutrophils % (Manual) 78 H Band Neutrophils % 1 Lymphocytes % (Manual) 13 L Monocytes % (Manual) 5 Eosinophils % (Manual) 3 Platelet Estimate Decreased L Hypochromasia (manual) Slight Poikilocytosis (manual Slight Anisocytosis (manual) Slight Target Cells Slight PT 24.9 H INR 2.3 APTT 40 H Sodium 140 Potassium 4.4 Chloride 105 Carbon Dioxide 26 Anion Gap 13 BUN 11 Creatinine 0.8 Est GFR ( Amer) > 60 Est GFR (Non-Af Amer) > 60 Random Glucose 142 H Calcium 8.5 L Magnesium 1.5 L Total Bilirubin 5.5 H AST 124 H ALT 79 H D Alkaline Phosphatase 157 H D Ammonia Troponin I < 0.0120 NT-Pro-B Natriuret Pep 73.6 Total Protein 6.8 Albumin 2.5 L D Globulin 4.4 H Albumin/Globulin Ratio 0.6 L 04/26/18 22:16 WBC RBC Hgb Hct MCV MCH MCHC RDW Plt Count MPV Neut % (Auto) Lymph % (Auto) Williamson % (Auto) Eos % (Auto) Baso % (Auto) Neut # (Auto) Lymph # (Auto) Williamson # (Auto) Eos # (Auto) Baso # (Auto) Neutrophils % (Manual) Band Neutrophils % Lymphocytes % (Manual) Monocytes % (Manual) Eosinophils % (Manual) Platelet Estimate Hypochromasia (manual) Poikilocytosis (manual Anisocytosis (manual) Target Cells PT INR APTT Sodium Potassium Chloride Carbon Dioxide Anion Gap BUN Creatinine Est GFR ( Amer) Est GFR (Non-Af Amer) Random Glucose Calcium Magnesium Total Bilirubin AST ALT Alkaline Phosphatase Ammonia 32 Troponin I NT-Pro-B Natriuret Pep Total Protein Albumin Globulin Albumin/Globulin Ratio Assessment & Plan - Date & Time Date: 04/27/18 (I have seen and examined the patient. I agree with the findings and plan of care as documented by Dr. Enrique. Patient with decompensated hepatic cirrhosis. Continue Lasix. Paracentesis. Oxygen as needed. Also with polysubstance abuse. [facility] protocol for alcohol abuse. Consider psych consult. Monitor for acute changes.) Time: 06:19 Attending/Attestation - Attestation I have personally seen and examined this patient.: Yes I have fully participated in the care of the patient.: Yes I have reviewed all pertinent clinical information: Yes
[2018-04-27] MEDS ORDERED: Morphine 4 MG/ML VIAL IVP PRN (02:28)
[2018-04-27 02:42] VITALS: RESP 20
[2018-04-27] MEDS ORDERED: Albuterol-Ipratrop 3 mg / 0.5 (3 ml) UD INH PRN (04:34)
[2018-04-27 07:34] LABS: ALB/GLOB RATIO 0.6 (1.0-2.1); ALBUMIN 2.2 g/dL (3.5-5.0); ALT/SGPT 73 U/L (21-72); AST/SGOT 103 U/L (17-59); BLOOD UREA NITROGEN 10 mg/dL (9-20); CALCIUM 7.9 mg/dl (8.6-10.4); GFR AFRICAN-AMERICAN > 60; GFR NON-AFRICAN AMERICAN > 60
[2018-04-27] MEDS: Multiple Vitamins Tab PO SCH (09:48)
[2018-04-27] MEDS ORDERED: Magnesium Sulfate 1 gm in D5W 1 GM/100 ML BAG IVPB ONE (09:53)
[2018-04-27] MEDS ORDERED: Moxifloxacin IV 400mg/250ml NS 400 MG/250 ML BAG IVPB SCH (10:00)
[2018-04-27] MEDS ORDERED: Pantoprazole 20 mg EC Tab PO SCH (10:00)
[2018-04-27] MEDS: Potassium Chl 40 mEq in D5-1/2 1,000 ML IV SCH ×2 (10:39→22:26)
[2018-04-27 11:16] LABS: BASO % 0.1 % (0.0-2.0); EOS # 0.2 K/uL (0.0-0.7); EOS % 6.2 % (0.0-4.0); HEMOGLOBIN 8.9 g/dL (12.0-18.0); LYMPH # 0.4 K/uL (1.0-4.3); LYMPH % 16.6 % (20.0-40.0); MEAN CELL VOLUME 95.6 fL (80.0-94.0); MEAN CORPUSCULAR HGB CONC 34.5 g/dL (33.0-37.0); MEAN PLATELET VOLUME 10.7 fL (7.2-11.7); MONO # 0.2 K/uL (0.0-0.8); MONO % 9.6 % (0.0-10.0); NEUT # 1.6 K/uL (1.8-7.0); NEUT % 67.5 % (50.0-75.0); NRBC % 0.1 % (0.0-2.0); RBC 2.71 Mil/uL (4.40-5.90); RED CELL DISTRIBUTION WIDTH 16.9 % (11.5-14.5); WHITE BLOOD COUNT 2.4 K/uL (4.8-10.8)
[2018-04-27] MEDS ORDERED: Phytonadione 10 mg/ml Inj (Adult) SC ONE (11:17)
[2018-04-27 11:18] LABS: PROTHROMBIN TIME 21.8 SECONDS (9.7-12.2)
--- NOTE | 2018-04-27 11:33 | RAD ---
Date of service: 04/26/2018 PROCEDURE: CHEST RADIOGRAPH, 1 VIEW HISTORY: SOB COMPARISON: 09/29/2017 FINDINGS: LUNGS: Patchy opacity at both lung bases. Possibly artifactual due to technique. Follow-up advised. PLEURA: No pneumothorax or pleural fluid seen. CARDIOVASCULAR: Normal. OSSEOUS STRUCTURES: No significant abnormalities. VISUALIZED UPPER ABDOMEN: Normal. OTHER FINDINGS: None. IMPRESSION: Questionable patchy opacities at the lung bases. Follow-up advised.
--- NOTE | 2018-04-27 14:33 | CP.PCM.PN ---
Subjective - Date & Time of Evaluation Date of Evaluation: 04/27/18 Time of Evaluation: 11:00 - Subjective Subjective: Progress note for Hospitalist service Patient seen and examined at bedside. He is lethargic and mumbling few comprehensible words. No family present at bedside. He denies feeling short of breath, chest pain, abdominal pain, leg pain. History limited due to patient's clinical condition Objective - Vital Signs/Intake and Output Vital Signs (last 24 hours): Temp Pulse Resp BP Pulse Ox 98.4 F 92 H 20 135/78 100 04/27/18 07:30 04/27/18 07:30 04/27/18 07:30 04/27/18 09:48 04/27/18 07:30 Intake and Output: 04/27/18 04/27/18 06:59 18:59 Intake Total 200 1100 Output Total 1000 Balance -800 1100 - Medications Medications: Current Medications Albuterol/Ipratropium (Duoneb 3 Mg/0.5 Mg (3 Ml) Ud) 3 ml INH RQ6 PRN PRN Reason: Shortness of Breath Benztropine Mesylate (Cogentin) 1 mg PO DAILY [facility] Last Admin: 04/27/18 09:48 Dose: 1 mg Clonidine HCl (Catapres) 0.1 mg PO Q8 PRN PRN Reason: COWS Score More or Equal to 5 Last Admin: 04/27/18 03:50 Dose: 0.1 mg Folic Acid (Folic Acid) 1 mg PO DAILY [facility] Last Admin: 04/27/18 09:48 Dose: 1 mg Furosemide (Lasix) 20 mg PO DAILY [facility] Last Admin: 04/27/18 09:48 Dose: 20 mg Gabapentin (Neurontin) 300 mg PO BID [facility] Last Admin: 04/27/18 09:48 Dose: 300 mg Potassium Chloride/Dextrose/Sod Cl (Potassium Chl 40 Meq In D5-1/2ns) 1,000 mls @ 75 mls/hr IV .[id number] [facility] Last Admin: 04/27/18 10:39 Dose: 75 mls/hr Lactulose (Enulose) 30 gm PO QID [facility] Last Admin: 04/27/18 13:43 Dose: 30 gm Lorazepam (Ativan) 1 mg IVP Q6H PRN PRN Reason: Anxiety Morphine Sulfate (Morphine) 0.5 mg IVP Q6 PRN PRN Reason: Pain, severe (8-10) Multivitamins (Hexavitamin) 1 tab PO DAILY [facility] Last Admin: 04/27/18 09:48 Dose: 1 tab Ondansetron HCl (Zofran Inj) 4 mg IVP Q6 PRN PRN Reason: Nausea/Vomiting Pantoprazole Sodium (Protonix Ec Tab) 20 mg PO DAILY [facility] Last Admin: 04/27/18 09:48 Dose: 20 mg Pneumococcal Polyvalent Vaccine (Pneumovax 23 Vaccine) 0.5 ml IM .ONCE ONE Stop: 04/29/18 10:01 Thiamine HCl (Vitamin B1 Tab) 100 mg PO DAILY [facility] Last Admin: 04/27/18 09:48 Dose: 100 mg - Labs Labs: 04/27/18 11:01 04/27/18 06:42 PT 21.8 SECONDS (9.7-12.2) H 04/27/18 11:01 INR 2.0 04/27/18 11:01 APTT 42 SECONDS (21-34) H 04/27/18 11:01 - Constitutional Appears: Confused - Head Exam Head Exam: ATRAUMATIC, NORMOCEPHALIC - Eye Exam Eye Exam: EOMI. absent: Scleral icterus - ENT Exam ENT Exam: Mucous Membranes Dry - Respiratory Exam Respiratory Exam: Clear to Ausculation Bilateral. absent: Rales, Rhonchi, Wheezes, Respiratory Distress, Stridor - Cardiovascular Exam Cardiovascular Exam: Tachycardia, +S1, +S2 - GI/Abdominal Exam GI & Abdominal Exam: Distended, Hernia. absent: Guarding, Tenderness Additional comments: no fluid wave shift present - Extremities Exam Extremities Exam: Normal Inspection, Pedal Edema. absent: Calf Tenderness - Skin Skin Exam: Dry, Intact, Warm Additional comments: No jaundice noted Assessment and Plan - Assessment and Plan (Free Text) Plan: Assessment/plan Decompensated Liver Cirrhosis Hx Metabolic Encephalopathy Untreated HCV Alcohol Use Disorder Pancytopenia Ascites - 04/10/[address] from prior admission: confirmed cirrhosis, no evidence of HCC - 04/27/18 Ammonia elevated 107 - 04/27/18 Urine drug screen positive for opiates, cocaine - 04/27/18 INR 2 PT 21.8 PTT 42 - 04/27/18 Platelets low at 33 - Vitamin K SC10mg x1 given - Lactulose 30gm QID - with goal of 2-3 BMs daily, Lactulose UT if unable to take PO - Lasix 40mg PO daily - Aldactone 100mg PO - GI Dr. Isabel consulted, help appreciated As per GI note, recommended continue oral Lactulose, avoid NG tube, discontinue PPI, start daily Lasix and Aldactone, avoid steroids since cannot rule out HCC with outpatient follow up for chronic HCV and EGD for variceal screening. As per GI note, bedside US revealed small gloria-hepatic ascites, not sufficient for paracentesis. - Follow up on Abdomen ultrasound - Duonebs PRN shortness of breath - Zofran 4mg IV Q 6 PRN Transaminitis - Hepatitis C positive, untreated - AST 124 --> 103 - ALT 73 --> 73 - Alk Phos 157 -->133 - Avoid hepatoxic agents Polysubstance Use Disorder IVDA, Alcohol Use Disorder - Cessation encouraged - Hep C positive - Aspiration, Seizure, CIWA protocol - MV, Thiamine, and folic acid daily - Gabapentin 300mg BID Hypokalemia Repleted, continue to monitor Hypomagnesemia Repeleted, continue to monitor Hx of Nephrolithiasis - Noted on Abd US (04/11/18) 12mm nonobstructing stone in lower pole of left kidney Hx Dilated CBD - Abdominal US (04/11/18): Measures 8.4mm; no evidence of gallstone - 04/13/18 CEA slightly elevated 7.3. Recommend colonoscopy as outpt - Outpt EGD to r/o varicies Prophylactic Measures - DVT PPX: SCDs, VTE c/i due to thrombocytopenia - PT/OT JOSE ARMANDO Rivera Case discussed with Dr. Malloy
[2018-04-27 15:14] LABS: BARBITURATES, UR NEGATIVE (NEGATIVE); BENZODIAZEPINES, UR NEGATIVE (NEGATIVE); PHENCYCLIDINE, UR NEGATIVE (NEGATIVE)
[2018-04-27 15:42] LABS: OPIATES, UR POSITIVE (NEGATIVE)
[2018-04-27] MEDS ORDERED: Lactulose 10 gm/15 ml (Rectal Use) PR PRN (15:42)
--- NOTE | 2018-04-27 16:12 | CP.PCM.CON ---
<Anthony Mark - Last Filed: 04/27/18 18:18> History of Present Illness - History of Present Illness History of Present Illness: GI Fellow PGY4, Consult note. Consulted for hepatic encephalopathy. Isaiah Jackson is a 47yo male presenting with SOB and abdominal distension. He is well known to me and previously seen last week for similar issues. Patient admits using heroin and alcohol at home after discharge. He admits his abdomen is more distended but not acutely tender. He denies fever, n , v. He states he is taking lactulose at this time and have water BMs. PMHx - kidney stones. See above. PSHx - cystoscopy FMHx - none SocHx - Polysubstance abuse, IVDU, tobacco user, alcohol abuser. 12pt ROS completed and negative except for above. Past Patient History - Infectious Disease Hx of Infectious Diseases: None - Past Medical History & Family History Past Medical History?: Yes - Past Social History Smoking Status: Heavy Smoker > 10 Cigarettes Daily - CARDIAC Hx Hypertension: No - PULMONARY Hx Asthma: Yes - NEUROLOGICAL Hx Seizures: No - HEENT Hx HEENT Problems: No - RENAL Hx Chronic Kidney Disease: No Hx Kidney Stones: Yes - ENDOCRINE/METABOLIC Hx Endocrine Disorders: No - HEMATOLOGICAL/ONCOLOGICAL Hx Human Immunodeficiency Virus (HIV): No - INTEGUMENTARY Hx Dermatological Problems: No - MUSCULOSKELETAL/RHEUMATOLOGICAL Hx Arthritis: Yes - GASTROINTESTINAL Other/Comment: right groin hernia - GENITOURINARY/GYNECOLOGICAL Hx Sexually Transmitted Disorders: No - PSYCHIATRIC Hx Substance Use: Yes - SURGICAL HISTORY Hx Coronary Stent: No - ANESTHESIA Hx Anesthesia: Yes Hx Anesthesia Reactions: No Hx Malignant Hyperthermia: No Meds Allergies/Adverse Reactions: Allergies Allergy/AdvReac Type Severity Reaction Status Date / Time No Known Allergies Allergy Verified 04/26/18 21:30 - Medications Medications: Current Medications Albuterol/Ipratropium (Duoneb 3 Mg/0.5 Mg (3 Ml) Ud) 3 ml INH RQ6 PRN PRN Reason: Shortness of Breath Benztropine Mesylate (Cogentin) 1 mg PO DAILY [facility] Last Admin: 04/27/18 09:48 Dose: 1 mg Clonidine HCl (Catapres) 0.1 mg PO Q8 PRN PRN Reason: COWS Score More or Equal to 5 Last Admin: 04/27/18 03:50 Dose: 0.1 mg Folic Acid (Folic Acid) 1 mg PO DAILY [facility] Last Admin: 04/27/18 09:48 Dose: 1 mg Furosemide (Lasix) 20 mg PO DAILY [facility] Last Admin: 04/27/18 09:48 Dose: 20 mg Gabapentin (Neurontin) 300 mg PO BID [facility] Last Admin: 04/27/18 09:48 Dose: 300 mg Potassium Chloride/Dextrose/Sod Cl (Potassium Chl 40 Meq In D5-1/2ns) 1,000 mls @ 75 mls/hr IV .[id number] [facility] Last Admin: 04/27/18 10:39 Dose: 75 mls/hr Lactulose (Enulose) 30 gm PO QID [facility] Last Admin: 04/27/18 13:43 Dose: 30 gm Lactulose (Generlac) 200 gm OK ONCE PRN PRN Reason: Constipation Lorazepam (Ativan) 1 mg IVP Q6H PRN PRN Reason: Anxiety Morphine Sulfate (Morphine) 0.5 mg IVP Q6 PRN PRN Reason: Pain, severe (8-10) Multivitamins (Hexavitamin) 1 tab PO DAILY [facility] Last Admin: 04/27/18 09:48 Dose: 1 tab Ondansetron HCl (Zofran Inj) 4 mg IVP Q6 PRN PRN Reason: Nausea/Vomiting Pantoprazole Sodium (Protonix Ec Tab) 20 mg PO DAILY [facility] Last Admin: 04/27/18 09:48 Dose: 20 mg Pneumococcal Polyvalent Vaccine (Pneumovax 23 Vaccine) 0.5 ml IM .ONCE ONE Stop: 04/29/18 10:01 Thiamine HCl (Vitamin B1 Tab) 100 mg PO DAILY [facility] Last Admin: 04/27/18 09:48 Dose: 100 mg Physical Exam - Constitutional Appears: No Acute Distress, Older Than Stated Age, Confused, Chronically Ill - Head Exam Head Exam: ATRAUMATIC, NORMAL INSPECTION, NORMOCEPHALIC - Eye Exam Eye Exam: EOMI, Scleral icterus - ENT Exam ENT Exam: Mucous Membranes Moist, Normal Exam - Respiratory Exam Respiratory Exam: Clear to Auscultation Bilateral, NORMAL BREATHING PATTERN. absent: Wheezes - Cardiovascular Exam Cardiovascular Exam: REGULAR RHYTHM, +S1, +S2 - GI/Abdominal Exam GI & Abdominal Exam: Distended, Firm, Normal Bowel Sounds. absent: Organomegaly , Tenderness - Extremities Exam Extremities exam: Positive for: pedal edema Additional comments: Asterixis present. - Neurological Exam Neurological exam: Altered, CN II-XII Intact Additional comments: Not oriented to month. Oriented to self, location, year, situation. - Psychiatric Exam Psychiatric exam: Flat Affect, Normal Mood - Skin Skin Exam: Dry, Intact, Warm Results - Vital Signs Recent Vital Signs: Last Vital Signs Temp 98.4 F 04/27/18 07:30 Pulse 92 H 04/27/18 07:30 Resp 20 04/27/18 07:30 BP 135/78 04/27/18 09:48 Pulse Ox 100 04/27/18 07:30 - Labs Result Diagrams: 04/27/18 11:01 04/27/18 06:42 Labs: Laboratory Results - last 24 hr 04/26/18 04/26/18 04/26/18 22:16 22:16 22:16 WBC 4.7 L D RBC 3.22 L Hgb 10.5 L Hct 31.4 L MCV 97.8 H MCH 32.8 H MCHC 33.5 RDW 17.1 H Plt Count 40 L MPV 11.0 Neut % (Auto) 79.9 H Lymph % (Auto) 7.8 L [place] % (Auto) 7.7 Eos % (Auto) 4.3 H Baso % (Auto) 0.3 Neut # (Auto) 3.8 Lymph # (Auto) 0.4 L [place] # (Auto) 0.4 Eos # (Auto) 0.2 Baso # (Auto) 0.0 Neutrophils % (Manual) 78 H Band Neutrophils % 1 Lymphocytes % (Manual) 13 L Monocytes % (Manual) 5 Eosinophils % (Manual) 3 Platelet Estimate Decreased L Hypochromasia (manual) Slight Poikilocytosis (manual Slight Anisocytosis (manual) Slight Target Cells Slight PT 24.9 H INR 2.3 APTT 40 H Sodium 140 Potassium 4.4 Chloride 105 Carbon Dioxide 26 Anion Gap 13 BUN 11 Creatinine 0.8 Est GFR ( Amer) > 60 Est GFR (Non-Af Amer) > 60 Random Glucose 142 H Calcium 8.5 L Phosphorus Magnesium 1.5 L Total Bilirubin 5.5 H AST 124 H ALT 79 H D Alkaline Phosphatase 157 H D Ammonia Troponin I < 0.0120 NT-Pro-B Natriuret Pep 73.6 Total Protein 6.8 Albumin 2.5 L D Globulin 4.4 H Albumin/Globulin Ratio 0.6 L Urine Opiates Screen Urine Methadone Screen Ur Barbiturates Screen Ur Phencyclidine Scrn Ur Amphetamines Screen U Benzodiazepines Scrn U Oth Cocaine Metabols U Cannabinoids Screen 04/26/18 04/27/18 04/27/18 22:16 06:42 11:01 WBC 2.4 L RBC 2.71 L Hgb 8.9 L Hct 25.9 L MCV 95.6 H D MCH 33.0 H MCHC 34.5 RDW 16.9 H Plt Count 33 L MPV 10.7 Neut % (Auto) 67.5 Lymph % (Auto) 16.6 L [place] % (Auto) 9.6 Eos % (Auto) 6.2 H Baso % (Auto) 0.1 Neut # (Auto) 1.6 L Lymph # (Auto) 0.4 L [place] # (Auto) 0.2 Eos # (Auto) 0.2 Baso # (Auto) 0.0 Neutrophils % (Manual) Band Neutrophils % Lymphocytes % (Manual) Monocytes % (Manual) Eosinophils % (Manual) Platelet Estimate Hypochromasia (manual) Poikilocytosis (manual Anisocytosis (manual) Target Cells PT INR APTT Sodium 137 Potassium 3.3 L Chloride 104 Carbon Dioxide 27 Anion Gap 9 L BUN 10 Creatinine 0.7 L Est GFR ( Amer) > 60 Est GFR (Non-Af Amer) > 60 Random Glucose 111 H Calcium 7.9 L Phosphorus 3.0 Magnesium 1.4 L Total Bilirubin 4.3 H AST 103 H ALT 73 H Alkaline Phosphatase 133 H Ammonia 32 Troponin I NT-Pro-B Natriuret Pep Total Protein 6.2 L Albumin 2.2 L Globulin 4.0 H Albumin/Globulin Ratio 0.6 L Urine Opiates Screen Urine Methadone Screen Ur Barbiturates Screen Ur Phencyclidine Scrn Ur Amphetamines Screen U Benzodiazepines Scrn U Oth Cocaine Metabols U Cannabinoids Screen 04/27/18 04/27/18 04/27/18 11:01 11:18 14:45 WBC RBC Hgb Hct MCV MCH MCHC RDW Plt Count MPV Neut % (Auto) Lymph % (Auto) [place] % (Auto) Eos % (Auto) Baso % (Auto) Neut # (Auto) Lymph # (Auto) [place] # (Auto) Eos # (Auto) Baso # (Auto) Neutrophils % (Manual) Band Neutrophils % Lymphocytes % (Manual) Monocytes % (Manual) Eosinophils % (Manual) Platelet Estimate Hypochromasia (manual) Poikilocytosis (manual Anisocytosis (manual) Target Cells PT 21.8 H INR 2.0 APTT 42 H Sodium Potassium Chloride Carbon Dioxide Anion Gap BUN Creatinine Est GFR ( Amer) Est GFR (Non-Af Amer) Random Glucose Calcium Phosphorus Magnesium Total Bilirubin AST ALT Alkaline Phosphatase Ammonia 107 H D Troponin I NT-Pro-B Natriuret Pep Total Protein Albumin Globulin Albumin/Globulin Ratio Urine Opiates Screen Positive H Urine Methadone Screen Negative Ur Barbiturates Screen Negative Ur Phencyclidine Scrn Negative Ur Amphetamines Screen Negative U Benzodiazepines Scrn Negative U Oth Cocaine Metabols Positive H U Cannabinoids Screen Negative Assessment & Plan - Assessment and Plan (Free Text) Assessment: 47M with hx of alcoholic cirrhosis, polysubstance abuse, HCV who was admitted to hospital for drug/alcohol detox and we were consulted for concern for hepatic encephalopathy and dilated CBD. #Decompensated cirrhosis #Hepatic encephalopathy #Ascites #HCV #Acute metabolic encephalopathy #Pancytopenia #Polysubstance abuse #Alcohol abuse #noncompliant with medical care Plan: -Continue supportive care -MELD score 20 -Continue oral lactulose for goal BMs 3 per day. -Avoid NG tube in possible varices and risk of bleeding. -Previous CT imaging confirms cirrhosis and no signs of HCC. -Agree with repeat abdominal US -Recommend paracentesis if enough ascites fluid available. Labs should include Albumin, total protein, cytology, culture, gram stain, cell count -Discontinue PPI as it can exacerbate HE -Start daily Lasix 40mg PO and daily aldactone 100mg PO -Avoid steroid since we have not ruled out HCC and patient is non-compliant with follow-up. -Outpatient f/u for chronic HCV -No expected endoscopic procedures at this time. -Outpt EGD to r/o varicies. - Date & Time Date: 04/27/18 Time: 18:27 <Darren Isabel Y - Last Filed: 04/27/18 18:42> Meds - Medications Medications: Current Medications Albuterol/Ipratropium (Duoneb 3 Mg/0.5 Mg (3 Ml) Ud) 3 ml INH RQ6 PRN PRN Reason: Shortness of Breath Folic Acid (Folic Acid) 1 mg PO DAILY [facility] Last Admin: 04/27/18 09:48 Dose: 1 mg Furosemide (Lasix) 40 mg PO DAILY [facility] Gabapentin (Neurontin) 300 mg PO BID [facility] Last Admin: 04/27/18 09:48 Dose: 300 mg Potassium Chloride/Dextrose/Sod Cl (Potassium Chl 40 Meq In D5-1/2ns) 1,000 mls @ 75 mls/hr IV .[id number] [facility] Last Admin: 04/27/18 10:39 Dose: 75 mls/hr Lactulose (Enulose) 30 gm PO QID [facility] Last Admin: 04/27/18 13:43 Dose: 30 gm Lactulose (Generlac) 200 gm OK ONCE PRN PRN Reason: Constipation Multivitamins (Hexavitamin) 1 tab PO DAILY [facility] Last Admin: 04/27/18 09:48 Dose: 1 tab Ondansetron HCl (Zofran Inj) 4 mg IVP Q6 PRN PRN Reason: Nausea/Vomiting Pneumococcal Polyvalent Vaccine (Pneumovax 23 Vaccine) 0.5 ml IM .ONCE ONE Stop: 04/29/18 10:01 Spironolactone (Aldactone) 100 mg PO DAILY [facility] Thiamine HCl (Vitamin B1 Tab) 100 mg PO DAILY [facility] Last Admin: 04/27/18 09:48 Dose: 100 mg Results - Vital Signs Recent Vital Signs: Last Vital Signs Temp 98.9 F 04/27/18 16:00 Pulse 95 H 04/27/18 16:00 Resp 20 04/27/18 16:00 BP 143/80 04/27/18 16:00 Pulse Ox 97 04/27/18 16:00 - Labs Result Diagrams: 04/27/18 11:01 04/27/18 06:42 Labs: Laboratory Results - last 24 hr 04/26/18 04/26/18 04/26/18 22:16 22:16 22:16 WBC 4.7 L D RBC 3.22 L Hgb 10.5 L Hct 31.4 L MCV 97.8 H MCH 32.8 H MCHC 33.5 RDW 17.1 H Plt Count 40 L MPV 11.0 Neut % (Auto) 79.9 H Lymph % (Auto) 7.8 L [place] % (Auto) 7.7 Eos % (Auto) 4.3 H Baso % (Auto) 0.3 Neut # (Auto) 3.8 Lymph # (Auto) 0.4 L [place] # (Auto) 0.4 Eos # (Auto) 0.2 Baso # (Auto) 0.0 Neutrophils % (Manual) 78 H Band Neutrophils % 1 Lymphocytes % (Manual) 13 L Monocytes % (Manual) 5 Eosinophils % (Manual) 3 Platelet Estimate Decreased L Hypochromasia (manual) Slight Poikilocytosis (manual Slight Anisocytosis (manual) Slight Target Cells Slight PT 24.9 H INR 2.3 APTT 40 H Sodium 140 Potassium 4.4 Chloride 105 Carbon Dioxide 26 Anion Gap 13 BUN 11 Creatinine 0.8 Est GFR ( Amer) > 60 Est GFR (Non-Af Amer) > 60 Random Glucose 142 H Calcium 8.5 L Phosphorus Magnesium 1.5 L Total Bilirubin 5.5 H AST 124 H ALT 79 H D Alkaline Phosphatase 157 H D Ammonia Troponin I < 0.0120 NT-Pro-B Natriuret Pep 73.6 Total Protein 6.8 Albumin 2.5 L D Globulin 4.4 H Albumin/Globulin Ratio 0.6 L Urine Opiates Screen Urine Methadone Screen Ur Barbiturates Screen Ur Phencyclidine Scrn Ur Amphetamines Screen U Benzodiazepines Scrn U Oth Cocaine Metabols U Cannabinoids Screen Blood Type Antibody Screen 04/26/18 04/27/18 04/27/18 22:16 06:42 11:01 WBC 2.4 L RBC 2.71 L Hgb 8.9 L Hct 25.9 L MCV 95.6 H D MCH 33.0 H MCHC 34.5 RDW 16.9 H Plt Count 33 L MPV 10.7 Neut % (Auto) 67.5 Lymph % (Auto) 16.6 L [place] % (Auto) 9.6 Eos % (Auto) 6.2 H Baso % (Auto) 0.1 Neut # (Auto) 1.6 L Lymph # (Auto) 0.4 L [place] # (Auto) 0.2 Eos # (Auto) 0.2 Baso # (Auto) 0.0 Neutrophils % (Manual) Band Neutrophils % Lymphocytes % (Manual) Monocytes % (Manual) Eosinophils % (Manual) Platelet Estimate Hypochromasia (manual) Poikilocytosis (manual Anisocytosis (manual) Target Cells PT INR APTT Sodium 137 Potassium 3.3 L Chloride 104 Carbon Dioxide 27 Anion Gap 9 L BUN 10 Creatinine 0.7 L Est GFR ( Amer) > 60 Est GFR (Non-Af Amer) > 60 Random Glucose 111 H Calcium 7.9 L Phosphorus 3.0 Magnesium 1.4 L Total Bilirubin 4.3 H AST 103 H ALT 73 H Alkaline Phosphatase 133 H Ammonia 32 Troponin I NT-Pro-B Natriuret Pep Total Protein 6.2 L Albumin 2.2 L Globulin 4.0 H Albumin/Globulin Ratio 0.6 L Urine Opiates Screen Urine Methadone Screen Ur Barbiturates Screen Ur Phencyclidine Scrn Ur Amphetamines Screen U Benzodiazepines Scrn U Oth Cocaine Metabols U Cannabinoids Screen Blood Type Antibody Screen 04/27/18 04/27/18 04/27/18 11:01 11:18 14:45 WBC RBC Hgb Hct MCV MCH MCHC RDW Plt Count MPV Neut % (Auto) Lymph % (Auto) [place] % (Auto) Eos % (Auto) Baso % (Auto) Neut # (Auto) Lymph # (Auto) [place] # (Auto) Eos # (Auto) Baso # (Auto) Neutrophils % (Manual) Band Neutrophils % Lymphocytes % (Manual) Monocytes % (Manual) Eosinophils % (Manual) Platelet Estimate Hypochromasia (manual) Poikilocytosis (manual Anisocytosis (manual) Target Cells PT 21.8 H INR 2.0 APTT 42 H Sodium Potassium Chloride Carbon Dioxide Anion Gap BUN Creatinine Est GFR ( Amer) Est GFR (Non-Af Amer) Random Glucose Calcium Phosphorus Magnesium Total Bilirubin AST ALT Alkaline Phosphatase Ammonia 107 H D Troponin I NT-Pro-B Natriuret Pep Total Protein Albumin Globulin Albumin/Globulin Ratio Urine Opiates Screen Positive H Urine Methadone Screen Negative Ur Barbiturates Screen Negative Ur Phencyclidine Scrn Negative Ur Amphetamines Screen Negative U Benzodiazepines Scrn Negative U Oth Cocaine Metabols Positive H U Cannabinoids Screen Negative Blood Type Antibody Screen 04/27/18 16:33 WBC RBC Hgb Hct MCV MCH MCHC RDW Plt Count MPV Neut % (Auto) Lymph % (Auto) [place] % (Auto) Eos % (Auto) Baso % (Auto) Neut # (Auto) Lymph # (Auto) [place] # (Auto) Eos # (Auto) Baso # (Auto) Neutrophils % (Manual) Band Neutrophils % Lymphocytes % (Manual) Monocytes % (Manual) Eosinophils % (Manual) Platelet Estimate Hypochromasia (manual) Poikilocytosis (manual Anisocytosis (manual) Target Cells PT INR APTT Sodium Potassium Chloride Carbon Dioxide Anion Gap BUN Creatinine Est GFR ( Amer) Est GFR (Non-Af Amer) Random Glucose Calcium Phosphorus Magnesium Total Bilirubin AST ALT Alkaline Phosphatase Ammonia Troponin I NT-Pro-B Natriuret Pep Total Protein Albumin Globulin Albumin/Globulin Ratio Urine Opiates Screen Urine Methadone Screen Ur Barbiturates Screen Ur Phencyclidine Scrn Ur Amphetamines Screen U Benzodiazepines Scrn U Oth Cocaine Metabols U Cannabinoids Screen Blood Type A POSITIVE Antibody Screen Negative Attending/Attestation - Attestation I have personally seen and examined this patient.: Yes I have fully participated in the care of the patient.: Yes I have reviewed all pertinent clinical information: Yes Notes (Text): 04/27/18 18:36 I have seen and examined patient with GI fellow. Agree with above documentation with the following additions. In brief, this is a 47 year old male with history of decompensated ETOH/HCV cirrhosis who presents to hospital with altered mental status. He had a recent hospitalization for similar complaints and was treated for hepatic encephalopathy. He admits to ongoing substance and ETOH use following hospital discharge along with increased abdominal distention. He denies nausea, vomiting, diarrhea, fever/chills, weight loss, or change in bowel habits. He is oriented to person/place but not to time. Decompensated ETOH/HCV cirrhosis, admission MELD 20 Polysubstance abuse Ascites Altered mental status - hepatic encephalopathy - Low sodium diet as tolerated - Continue with diuretic therapy (lasix/aldactone) and monitor electrolytes - Continue with lactulose, titrate so patient has 2-3 bowel movements daily - Abdominal US reviewed at bedside, small gloria-hepatic ascites present, not enough fluid for paracentesis - Substance abuse cessation counseling - Would discontinue use of PPI therapy in decompensated cirrhosis, relative contraindication. May use oral H2 syed therapy as needed. - LFTs stable, continue to monitor - Patient would benefit from outpatient follow up along with EGD for variceal screening. No planned GI intervention, will sign off case. Please reconsult as necessary, thank you.
--- NOTE | 2018-04-27 17:18 | CARD ---
APPROVED REPORT Date of service: 04/26/2018 EKG Measurement Heart [id number] <Conclusion> Sinus tachycardia Otherwise normal ECG
[2018-04-28 08:11] LABS: INR 2.1; PROTHROMBIN TIME 23.4 SECONDS (9.7-12.2)
[2018-04-28 08:15] LABS: EOS # 0.1 K/uL (0.0-0.7); EOS % 5.5 % (0.0-4.0); HEMOGLOBIN 10.2 g/dL (12.0-18.0); LYMPH # 0.6 K/uL (1.0-4.3); LYMPH % 23.6 % (20.0-40.0); MEAN CELL VOLUME 95.2 fL (80.0-94.0); MEAN CORPUSCULAR HGB CONC 34.7 g/dL (33.0-37.0); MONO # 0.2 K/uL (0.0-0.8); MONO % 9.1 % (0.0-10.0); NEUT # 1.5 K/uL (1.8-7.0); NEUT % 60.8 % (50.0-75.0); NRBC % 0.1 % (0.0-2.0); RBC 3.09 Mil/uL (4.40-5.90); RED CELL DISTRIBUTION WIDTH 16.7 % (11.5-14.5); WHITE BLOOD COUNT 2.5 K/uL (4.8-10.8)
[2018-04-28 08:28] LABS: ALB/GLOB RATIO 0.5 (1.0-2.1); ALT/SGPT 63 U/L (21-72); AST/SGOT 109 U/L (17-59); BLOOD UREA NITROGEN 8 mg/dL (9-20); CALCIUM 7.9 mg/dl (8.6-10.4); GFR AFRICAN-AMERICAN > 60; GFR NON-AFRICAN AMERICAN > 60
[2018-04-28] MEDS: Potassium Chl 40 mEq in D5-1/2 1,000 ML IV SCH (08:31)
[2018-04-28 08:52] VITALS: O2SAT 98
[2018-04-28] MEDS: Multiple Vitamins Tab PO SCH (09:20)
[2018-04-28] MEDS ORDERED: Magnesium Sulfate 1 gm in D5W 1 GM/100 ML BAG IVPB ONE (09:43)
[2018-04-28] MEDS ORDERED: Potassium Chloride 20 mEq ER Tab PO ONE ×2 (09:44→10:30)
--- NOTE | 2018-04-28 11:29 | US ---
Date of service: 04/27/2018 HISTORY: abdominal distention COMPARISON: 04/11/2018 abdominal ultrasound. TECHNIQUE: Sonographic evaluation of the abdomen. FINDINGS: LIVER: Measures 14.6 cm. Hepatopedal blood flow. Fatty infiltration manifest ultrasonographically as increased echogenicity of the liver parenchyma. No mass. No intrahepatic bile duct dilatation. Trace perihepatic ascites. GALLBLADDER: No gallstones. Gallbladder wall thickening accentuated by partially collapsed gallbladder. COMMON BILE DUCT: Measures 8.7 mm. No stones. No dilatation. Trace pericholecystic fluid. PANCREAS: Unremarkable as visualized. No mass. No ductal dilatation. RIGHT KIDNEY: Measures 5.5 x 12.9cm. Normal echogenicity. No calculus, mass, or hydronephrosis. LEFT KIDNEY: Measures 5.5 x 12.2cm. Calculus disease. Midpole calculus 1.2 x 2 cm. Central calculus within the collecting system 7 x 16 mm SPLEEN: 16.8 cm. No focal abnormalities. AORTA: No aneurysmal dilatation. IVC: Unremarkable. OTHER FINDINGS: None. IMPRESSION: Heterogeneous echo characteristics of the liver without focal abnormality. Stable splenomegaly. Mild hydronephrosis and left renal calculus disease. No acute findings.
--- NOTE | 2018-04-28 12:55 | CP.PCM.PN ---
Subjective - Date & Time of Evaluation Date of Evaluation: 04/28/18 Time of Evaluation: 12:55 Objective - Vital Signs/Intake and Output Vital Signs (last 24 hours): Temp Pulse Resp BP Pulse Ox 98.3 F 80 20 149/82 98 04/28/18 08:00 04/28/18 08:00 04/28/18 08:00 04/28/18 09:20 04/28/18 08:00 Intake and Output: 04/28/18 04/28/18 06:59 18:59 Intake Total 600 800 Balance 600 800 - Medications Medications: Current Medications Albuterol/Ipratropium (Duoneb 3 Mg/0.5 Mg (3 Ml) Ud) 3 ml INH RQ6 PRN PRN Reason: Shortness of Breath Folic Acid (Folic Acid) 1 mg PO DAILY [facility] Last Admin: 04/28/18 09:19 Dose: 1 mg Furosemide (Lasix) 40 mg PO DAILY [facility] Last Admin: 04/28/18 09:20 Dose: 40 mg Gabapentin (Neurontin) 300 mg PO BID [facility] Last Admin: 04/28/18 09:20 Dose: 300 mg Lactulose (Enulose) 30 gm PO QID [facility] Last Admin: 04/28/18 09:19 Dose: 30 gm Lactulose (Generlac) 200 gm MS ONCE PRN PRN Reason: Constipation Morphine Sulfate (Morphine) 0.5 mg IVP Q6 PRN PRN Reason: Pain, moderate (4-7) Multivitamins (Hexavitamin) 1 tab PO DAILY [facility] Last Admin: 04/28/18 09:20 Dose: 1 tab Ondansetron HCl (Zofran Inj) 4 mg IVP Q6 PRN PRN Reason: Nausea/Vomiting Pneumococcal Polyvalent Vaccine (Pneumovax 23 Vaccine) 0.5 ml IM .ONCE ONE Stop: 04/29/18 10:01 Spironolactone (Aldactone) 100 mg PO DAILY [facility] Last Admin: 04/28/18 10:33 Dose: 100 mg Thiamine HCl (Vitamin B1 Tab) 100 mg PO DAILY [facility] Last Admin: 04/28/18 09:19 Dose: 100 mg - Labs Labs: 04/28/18 07:56 04/28/18 07:56 PT 23.4 SECONDS (9.7-12.2) H 04/28/18 07:56 INR 2.1 04/28/18 07:56 APTT 43 SECONDS (21-34) H 04/28/18 07:56
[2018-04-28 16:05] VITALS: BP 121/76; PULSE 83; TEMP 98.5
--- NOTE | 2018-04-28 16:48 | CP.PCM.DIS ---
Provider - Provider Date of Admission: 04/27/18 01:24 Attending physician: Ricardo Weiss MD Primary care physician: Dr. Morse Consults: GI: Dr. Isabel Time Spent in preparation of Discharge (in minutes): 40 Diagnosis - Discharge Diagnosis (1) Hepatic encephalopathy Status: Acute Hospital Course - Lab Results Lab Results: Most Recent Lab Values WBC 2.5 K/uL (4.8-10.8) L 04/28/18 07:56 RBC 3.09 Mil/uL (4.40-5.90) L 04/28/18 07:56 Hgb 10.2 g/dL (12.0-18.0) L 04/28/18 07:56 Hct 29.4 % (35.0-51.0) L 04/28/18 07:56 MCV 95.2 fL (80.0-94.0) H 04/28/18 07:56 MCH 33.0 pg (27.0-31.0) H 04/28/18 07:56 MCHC 34.7 g/dL (33.0-37.0) 04/28/18 07:56 RDW 16.7 % (11.5-14.5) H 04/28/18 07:56 Plt Count 41 K/uL (130-400) L 04/28/18 07:56 MPV 11.0 fL (7.2-11.7) 04/28/18 07:56 Neut % (Auto) 60.8 % (50.0-75.0) 04/28/18 07:56 Lymph % (Auto) 23.6 % (20.0-40.0) 04/28/18 07:56 Banks % (Auto) 9.1 % (0.0-10.0) 04/28/18 07:56 Eos % (Auto) 5.5 % (0.0-4.0) H 04/28/18 07:56 Baso % (Auto) 1.0 % (0.0-2.0) 04/28/18 07:56 Neut # (Auto) 1.5 K/uL (1.8-7.0) L 04/28/18 07:56 Lymph # (Auto) 0.6 K/uL (1.0-4.3) L 04/28/18 07:56 Banks # (Auto) 0.2 K/uL (0.0-0.8) 04/28/18 07:56 Eos # (Auto) 0.1 K/uL (0.0-0.7) 04/28/18 07:56 Baso # (Auto) 0.0 K/uL (0.0-0.2) 04/28/18 07:56 Neutrophils % (Manual) 78 % (50-75) H 04/26/18 22:16 Band Neutrophils % 1 % (0-2) 04/26/18 22:16 Lymphocytes % (Manual) 13 % (20-40) L 04/26/18 22:16 Monocytes % (Manual) 5 % (0-10) 04/26/18 22:16 Eosinophils % (Manual) 3 % (0-4) 04/26/18 22:16 Platelet Estimate Decreased (NORMAL) L 04/26/18 22:16 Hypochromasia (manual) Slight 04/26/18 22:16 Poikilocytosis (manual Slight 04/26/18 22:16 Anisocytosis (manual) Slight 04/26/18 22:16 Target Cells Slight 04/26/18 22:16 PT 23.4 SECONDS (9.7-12.2) H 04/28/18 07:56 INR 2.1 04/28/18 07:56 APTT 43 SECONDS (21-34) H 04/28/18 07:56 Sodium 143 mmol/L (132-148) 04/28/18 07:56 Potassium 3.4 mmol/L (3.6-5.2) L 04/28/18 07:56 Chloride 111 mmol/L (98-107) H 04/28/18 07:56 Carbon Dioxide 25 mmol/L (22-30) 04/28/18 07:56 Anion Gap 11 (10-20) 04/28/18 07:56 BUN 8 mg/dL (9-20) L 04/28/18 07:56 Creatinine 0.6 mg/dL (0.8-1.5) L 04/28/18 07:56 Est GFR ( Amer) > 60 04/28/18 07:56 Est GFR (Non-Af Amer) > 60 04/28/18 07:56 Random Glucose 115 mg/dL (75-110) H 04/28/18 07:56 Calcium 7.9 mg/dl (8.6-10.4) L 04/28/18 07:56 Phosphorus 2.1 mg/dL (2.5-4.5) L 04/28/18 07:56 Magnesium 1.5 mg/dL (1.6-2.3) L 04/28/18 07:56 Total Bilirubin 3.4 mg/dL (0.2-1.3) H 04/28/18 07:56 AST 109 U/L (17-59) H 04/28/18 07:56 ALT 63 U/L (21-72) 04/28/18 07:56 Alkaline Phosphatase 135 U/L (38-126) H 04/28/18 07:56 Ammonia 43 umol/L (9-33) H D 04/28/18 07:56 Troponin I < 0.0120 ng/mL (0.00-0.120) 04/26/18 22:16 NT-Pro-B Natriuret Pep 73.6 pg/mL (0-450) 04/26/18 22:16 Total Protein 6.0 g/dL (6.3-8.3) L 04/28/18 07:56 Albumin 2.0 g/dL (3.5-5.0) L 04/28/18 07:56 Globulin 4.0 gm/dL (2.2-3.9) H 04/28/18 07:56 Albumin/Globulin Ratio 0.5 (1.0-2.1) L 04/28/18 07:56 Urine Opiates Screen Positive (NEGATIVE) H 04/27/18 14:45 Urine Methadone Screen Negative (NEGATIVE) 04/27/18 14:45 Ur Barbiturates Screen Negative (NEGATIVE) 04/27/18 14:45 Ur Phencyclidine Scrn Negative (NEGATIVE) 04/27/18 14:45 Ur Amphetamines Screen Negative (NEGATIVE) 04/27/18 14:45 U Benzodiazepines Scrn Negative (NEGATIVE) 04/27/18 14:45 U Oth Cocaine Metabols Positive (NEGATIVE) H 04/27/18 14:45 U Cannabinoids Screen Negative (NEGATIVE) 04/27/18 14:45 Blood Type A POSITIVE 04/27/18 16:33 Antibody Screen Negative 04/27/18 16:33 - Hospital Course Hospital Course: On admission: CC: shortness of breath HPI: This is a 47 year old male with PMHx of Hepatic Encephalopathy 2/2 cirrhosis, Untreated Hepatitis C (HCC ruled out), pancytopenia, Spleenomegaly, Nephrolithasis, Polysubstance abuse who presents to the ED with shortness of breath. Patient was recently admitted in April 09- April 19, 2018 for alcohol and heroine detox who was found to have decompensated cirrhosis, acute metabolic encephalopathy, and treated for UTI. Patient reports his abdomen has been becoming distended over the past 3-4 weeks. However, within the last week the shortness of breath has become more severe due to the increase in size of his abdomen. Patient is currently still drinking alcohol and using IV heroine. Denied any associated fever, chills, headache, chest pain, n/v/d/c, or urinary symptoms. Hospital course: Patient was admitted for shortness of breath and abdominal distention, likely secondary to ascites. Given patient's history of metabolic encephalopathy, ammonia levels continued to decrease after patient was started on Lactulose 30mg [address] Isabel consulted, who recommended oral Lactulose, avoiding NG tube, discontinuing PPI, starting daily Lasix and Aldactone, avoid steroids since cannot rule out hepatocellcular carcinoma with outpatient follow up for chronic HCV and EGD for variceal screening. As per GI note, bedside US revealed small gloria-hepatic ascites, not sufficient for paracentesis. Patient's electrolyte levels were monitored and repleted as necessary. Patient was started on Lasix 40mg, Aldactone 100mg along with Duonebs as needed with improvement of his symptoms. Patient's liver functions tests were monitored given history of untreated Hepatitis C. Since patient has a history of polysubstance abuse, patient was given MVI/Thiamine/Folic acid regimen and was placed on aspiration, seizure and CIWA protocol. Patient improved throughout the course of hospitalization and requested discharge. Patient was medically stable to discharge. Images: Abdominal US Heterogeneous echo characteristics of the liver without focal abnormality.Stable splenomegaly. CXR: Questionable patchy opacities at the lung bases. Follow-up advised. 04/10/[address] from prior admission: confirmed cirrhosis, no evidence of HCC Discharge summary: Please take medications as instructed Lasix 40mg oral once a day Aldactone 100mg oral 1 tab once a day lactulose 30gram oral 4 times a day. Skip a dose if you have more than 4 loose bowel movements gabapentin 300,mg po bid folic acid 1 mg oral daily Thiamine 100mg oral once a day Multi vit 1 tab oral daily Neutra phos 1 pack oral twice a day for two days Make an appointment with your primary care or follow our medical medical clinic within one week to check you blood and follow up Discharge Exam - Head Exam Head Exam: ATRAUMATIC, NORMOCEPHALIC - Eye Exam Eye Exam: EOMI - ENT Exam ENT Exam: Mucous Membranes Dry - Neck Exam Neck exam: Full Rom - Respiratory Exam Respiratory Exam: Clear to PA & Lateral, NORMAL BREATHING PATTERN. absent: Rales, Rhonchi, Wheezes, Respiratory Distress - Cardiovascular Exam Cardiovascular Exam: REGULAR RHYTHM, +S1, +S2 - GI/Abdominal Exam GI & Abdominal Exam: Distended, Hernia, Normal Bowel Sounds Additional comments: No fluid wave shift noted. - Extremities Exam Additional comments: no calf tenderness or edema. good distal pulses. - Neurological Exam Neurological exam: Alert, Oriented x3 - Skin Skin Exam: Dry, Intact, Warm Discharge Plan - Discharge Medications Prescriptions: Folic Acid 1 mg PO DAILY 30 Days #30 tab Furosemide [Lasix] 40 mg PO DAILY #30 tab Gabapentin [Neurontin] 300 mg PO BID #60 cap Gabapentin 300 mg PO BID #60 capsule Lactulose [Enulose] 30 gm PO QID 10 Days #40 udc Multivitamins [Hexavitamin] 1 tab PO DAILY #30 tab Phosphorus/Potassium/Sodium [Neutra-Phos] 1 pkt PO BID 2 Days #4 packet Spironolactone [Aldactone] 100 mg PO DAILY 10 Days #10 tab Thiamine [Vitamin B1 Tab] 50 mg PO DAILY #30 tab - Follow Up Plan Condition: STABLE Disposition: HOME/ ROUTINE Instructions: Heart Failure, Adult (DC), Hepatic Encephalopathy (DC) Additional Instructions: Take your medications as instructed Lasix 40mg oral once a day Aldactone 100mg oral 1 tab once a day lactulose 30gram oral 4 times a day. Skip a dose if you have more than 4 loose bowel movements gabapentin 300,mg po bid folic acid 1 mg oral daily Thiamine 100mg oral once a day Multi vit 1 tab oral daily Neutra phos 1 pack oral twice a day for two days Make an appointment with your primary care or follow our medical medical clinic within one week to check you blood and follow up Referrals: Rosaline Velazco MD [Staff Provider] -
[2018-04-28] MEDS ORDERED: Pneumococcal 23-Valent Vaccine IM ONE (17:15)
[2018-04-28] MEDS ORDERED: Potassium & Sodium Phosphate PO SCH (18:00)
== END 2018-04-28 17:29 | disposition home or self-care (01) | DRG 205 ==
LOC: C.ER 21:02 → C.9E 04-27 01:24 → C.3T 04-27 01:54
PROVIDERS: ADMIT Family Medicine; ATTEND Family Medicine
PROC: 30233K1 Transfusion of Nonautologous Frozen Plasma into Peripheral Vein, Percutaneous Approach (ICD-10-PCS; principal; 2018-04-27)
DX: K72.90 Hepatic failure, unspecified without coma (principal); K70.31 Alcoholic cirrhosis of liver with ascites; B19.20 Unspecified viral hepatitis C without hepatic coma; D61.818 Other pancytopenia; E87.6 Hypokalemia; I50.9 Heart failure, unspecified; F11.20 Opioid dependence, uncomplicated; K70.40 Alcoholic hepatic failure without coma; F10.20 Alcohol dependence, uncomplicated; E83.42 Hypomagnesemia; F19.10 Other psychoactive substance abuse, uncomplicated; G93.41 Metabolic encephalopathy; J45.909 Unspecified asthma, uncomplicated; F17.210 Nicotine dependence, cigarettes, uncomplicated; Z87.440 Personal history of urinary (tract) infections; Z91.19 Patient's noncompliance with other medical treatment and regimen; Z87.442 Personal history of urinary calculi

== ENCOUNTER 2018-05-05 09:59 | Emergency (ER) | payer MEDICAID ==
[2018-05-05 10:04] VITALS: BP 126/73; PULSE 78; RESP 18; TEMP 98; O2SAT 98
--- NOTE | 2018-05-11 10:32 | C.PDOC ---
History Of Present Illness Patient BIBA for eval after heroin use, was found on the floor with heroin needle. Patient given 1mg Narcan in the field, currently awake & alert. He admits to heroin use today; denies any physical complaints. Time Seen by Provider: 05/05/18 10:01 Chief Complaint (Nursing): Substance Abuse History Per: Patient, EMS Onset/Duration Of Symptoms: Unknown Modifying Factor(s): Narcotics Severity: Moderate Past Medical History Reviewed: Historical Data, Nursing Documentation, Vital Signs Vital Signs: Last Vital Signs Temp 98 F 05/05/18 10:01 Pulse 78 05/05/18 10:01 Resp 18 05/05/18 10:01 BP 126/73 05/05/18 10:01 Pulse Ox 98 05/05/18 10:01 - Medical History PMH: Arthritis, Asthma, Fractures (right arm), Hepatitis (C), Hiatal Hernia, Kidney Stones Surgical History: No Surg Hx - [facility] Procedures COMBINED ALCOHOL AND DRUG DETOXIFICATION (09/04/14) DETOXIFICATION SERVICES FOR SUBSTANCE ABUSE TREATMENT (04/06/18) DILATION OF LEFT URETER WITH INTRALUMINAL DEVICE, ENDO (09/21/17) EXTIRPATION OF MATTER FROM LEFT URETER, ENDO (09/21/17) GROUP NEUROSCIENTIST FOR SUBSTANCE ABUSE TREATMENT, PSYCHOEDUCATION (02/16/18) GROUP NEUROSCIENTIST FOR SUBSTANCE ABUSE, COGNITIVE BEHAVIORAL (02/16/18) GROUP PSYCHOTHERAPY (04/06/18) INDIV PSYCHOTHERAPY FOR SUBSTANCE ABUSE TREATMENT, SUPPORT (02/16/18) INDIV PSYCHOTHERAPY FOR SUBSTANCE ABUSE, COGNITIV BEHAVIORAL (02/16/18) INDIV PSYCHOTHERAPY FOR SUBSTANCE ABUSE, PSYCHOEDUCATION (02/16/18) REMOVAL OF INTRALUMINAL DEVICE FROM URETER, ENDO (09/21/17) TRANSFUSE NONAUT FROZEN PLASMA IN PERIPH VEIN, PERC (04/27/18) TRANSFUSE NONAUT PLATELETS IN PERIPH VEIN, PERC (09/21/17) Family History: States: No Known Family Hx - Social History Hx Tobacco Use: Yes Hx Alcohol Use: Yes (drinks 10 60 oz beers daily) Hx Substance Use: Yes - Immunization History Hx Tetanus Toxoid Vaccination: No Hx Influenza Vaccination: No Hx Pneumococcal Vaccination: No Review Of Systems Constitutional: Negative for: Fever, Chills Cardiovascular: Negative for: Chest Pain, Palpitations Respiratory: Negative for: Cough, Shortness of Breath Gastrointestinal: Negative for: Nausea, Vomiting, Abdominal Pain, Diarrhea Skin: Negative for: Rash Psych: Positive for: Other (heroin abuse) Physical Exam - Physical Exam Appears: Well, Non-toxic, No Acute Distress, Unkempt Head: Atraumatic, Normacephalic Eye(s): bilateral: Normal Inspection, PERRL, EOMI Oral Mucosa: Moist Cardiovascular: Rhythm Regular Respiratory: Normal Breath Sounds, No Rales, No Rhonchi, No Wheezing Neurological/Psych: Oriented x3, Normal Speech, Normal Cognition Gait: Steady ED Course And Treatment O2 Sat by Pulse Oximetry: 98 (RA) Pulse Ox Interpretation: Normal Progress Note: Patient AAOx3, ambulating normally in ED, and asking to be discharged. He is clinically sober at this time, will discharge. Disposition Counseled Patient/Family Regarding: Diagnosis, Need For Followup - Disposition Referrals: [facility] [Outside] Disposition: HOME/ ROUTINE Disposition Time: 10:15 Condition: STABLE Forms: [facility] ([employer]) Print Language: FRISIAN - Clinical Impression Clinical Impression: Heroin abuse
== END 2018-05-05 10:20 | disposition home or self-care (01) ==
LOC: C.ER 09:59
DX: F11.10 Opioid abuse, uncomplicated (principal)

== ENCOUNTER 2018-05-22 17:29 | Inpatient (IN) | payer MEDICAID ==
[2018-05-22 17:34] VITALS: BMI 20.9
--- NOTE | 2018-05-22 18:27 | C.PDOC ---
History Of Present Illness 47 y/o M c PMHx Hepatic Encephalopathy 2/2 cirrhosis, Untreated Hepatitis C ( HCC ruled out), pancytopenia, Spleenomegaly, Nephrolithasis, Polysubstance abuse p/w abdominal pain x 4 days. Pain is in focal area on abdomen at the site of umbilical hernia and inguinal hernia. Patient vomited NBNB yesterday. Naprosyn taken yesterday night, nothing since. Loose stool today, nonbloody. Time Seen by Provider: 05/22/18 18:22 Chief Complaint (Nursing): Abdominal Pain Past Medical History Vital Signs: Last Vital Signs Temp 98.4 F 05/22/18 21:25 Pulse 103 H 05/22/18 20:59 Resp 18 05/22/18 20:59 BP 111/59 L 05/22/18 20:59 Pulse Ox 100 05/22/18 20:59 - Medical History PMH: Arthritis, Asthma, Fractures (right arm), Hepatitis (C), Hiatal Hernia, Kidney Stones Denies: HIV, HTN, Chronic Kidney Disease, Seizures, Sexually Transmitted Disease Surgical History: Denies: Coronary Stent - [facility] Procedures COMBINED ALCOHOL AND DRUG DETOXIFICATION (09/04/14) DETOXIFICATION SERVICES FOR SUBSTANCE ABUSE TREATMENT (04/06/18) DILATION OF LEFT URETER WITH INTRALUMINAL DEVICE, ENDO (09/21/17) EXTIRPATION OF MATTER FROM LEFT URETER, ENDO (09/21/17) GROUP COUNTERSINKER FOR SUBSTANCE ABUSE TREATMENT, PSYCHOEDUCATION (02/16/18) GROUP COUNTERSINKER FOR SUBSTANCE ABUSE, COGNITIVE BEHAVIORAL (02/16/18) GROUP PSYCHOTHERAPY (04/06/18) INDIV PSYCHOTHERAPY FOR SUBSTANCE ABUSE TREATMENT, SUPPORT (02/16/18) INDIV PSYCHOTHERAPY FOR SUBSTANCE ABUSE, COGNITIV BEHAVIORAL (02/16/18) INDIV PSYCHOTHERAPY FOR SUBSTANCE ABUSE, PSYCHOEDUCATION (02/16/18) REMOVAL OF INTRALUMINAL DEVICE FROM URETER, ENDO (09/21/17) TRANSFUSE NONAUT FROZEN PLASMA IN PERIPH VEIN, PERC (04/27/18) TRANSFUSE NONAUT PLATELETS IN PERIPH VEIN, PERC (09/21/17) Family History: States: No Known Family Hx - Social History Hx Tobacco Use: Yes Hx Alcohol Use: Yes (drinks 10 60 oz beers daily) Hx Substance Use: Yes - Immunization History Hx Tetanus Toxoid Vaccination: No Hx Influenza Vaccination: No Hx Pneumococcal Vaccination: No Review Of Systems Except As Marked, All Systems Reviewed And Found Negative. Cardiovascular: Negative for: Chest Pain Respiratory: Negative for: Cough Physical Exam - Physical Exam Additional Physical Exam Comments: Constitutional: No acute distress. Head: Normocephalic. Atraumatic. Eyes: PERRL. ENT: Moist mucous membranes. Neck: Supple. Cardiovascular: Regular rate. Radial pulse 2+ bilaterally. Chest: No tenderness. Respiratory: Clear to auscultation bilaterally. Abdomen: distended, umbilical and inguinal hernias soft and reducible without overlying skin changes Back: Bilateral CVA tenderness Musculoskeletal: No tenderness or swelling of extremities. Skin: No rash. Neurologic: Alert, no focal deficit. ED Course And Treatment - Laboratory Results Result Diagrams: 05/22/18 18:52 05/22/18 18:52 O2 Sat by Pulse Oximetry: 99 (RA) Pulse Ox Interpretation: Normal Critical Care Time - Critical Care Note Total Time (in mins): 60 Comments: Patient with life threatening illness, required frequent reassessments, consultation with multiple specialists. Documented critical care: time excludes all time spent performing seperately billable procedures. Medical Decision Making Medical Decision Making: IMPRESSION: Severe diffuse colonic wall thickening consistent with colitis. Cirrhosis and sequelae of portal hypertension as above. 13 x 6 mm obstructing stone in the proximal left ureter with moderate hydronephrosis CODE STROKE activated, IVF, broad spectrum antibiotics, cultures. Dr. Estrella accepts patient to ICU. Dr. Flor accepts patient to hospitalist service. Disposition - Disposition Disposition: HOSPITALIZED Disposition Time: 20:00 Condition: CRITICAL - POA Core Measure Indicators: Code Sepsis - Clinical Impression Clinical Impression: UTI (urinary tract infection), Nephrolithiasis, Severe sepsis, Colitis - Scribe Statement The provider has reviewed the documentation as recorded by the Scribe Provider Attestation: Allie Maharaj All medical record entries made by the Scribe were at my direction and personally dictated by me. I have reviewed the chart and agree that the record accurately reflects my personal performance of the history, physical exam, medical decision making, and the department course for this patient. I have also personally directed, reviewed, and agree with the discharge instructions and disposition.
[2018-05-22 19:03] LABS: BASO % 0.2 % (0.0-2.0); EOS # 0.3 K/uL (0.0-0.7); EOS % 1.1 % (0.0-4.0); HEMOGLOBIN 10.8 g/dL (12.0-18.0); LYMPH % 4.6 % (20.0-40.0); MEAN CORPUSCULAR HGB CONC 34.1 g/dL (33.0-37.0); MEAN PLATELET VOLUME 12.6 fL (7.2-11.7); MONO # 0.6 K/uL (0.0-0.8); MONO % 2.5 % (0.0-10.0); NEUT % 91.6 % (50.0-75.0); RBC 3.17 Mil/uL (4.40-5.90); RED CELL DISTRIBUTION WIDTH 18.6 % (11.5-14.5)
[2018-05-22 19:05] LABS: MEAN CELL VOLUME 99.6 fL (80.0-94.0); PLATELET COUNT 45 K/uL (130-400); SQUAMOUS EPITHIAL 1 /hpf (0-5); URINE BACTERIA MANY (<OCC); URINE BILIRUBIN 1+ (NEGATIVE); URINE BLOOD 3+ (NEGATIVE); URINE CLARITY Hazy (Clear); URINE COLOR Amber (YELLOW); URINE GLUCOSE (UA) NORMAL (Normal); URINE LEUKOCYTE ESTERASE 3+ Leu/uL (Negative); URINE PROTEIN 1+ mg/dL (NEGATIVE); WHITE BLOOD COUNT 22.9 K/uL (4.8-10.8)
[2018-05-22 19:13] LABS: ALB/GLOB RATIO 0.5 (1.0-2.1); ALBUMIN 2.2 g/dL (3.5-5.0); ALT/SGPT 53 U/L (21-72); AST/SGOT 114 U/L (17-59); BLOOD UREA NITROGEN 33 mg/dL (9-20); CALCIUM 8.7 mg/dl (8.6-10.4); GFR AFRICAN-AMERICAN 32; GFR NON-AFRICAN AMERICAN 26; LIPASE 611 U/L (23-300)
[2018-05-22] MEDS ORDERED: Sodium Chloride 0.9% 1,000 ML IV STA ×2 (19:13→19:48)
[2018-05-22 19:14] LABS: BARBITURATES, UR NEGATIVE (NEGATIVE); BENZODIAZEPINES, UR POSITIVE (NEGATIVE); OPIATES, UR POSITIVE (NEGATIVE); PHENCYCLIDINE, UR NEGATIVE (NEGATIVE)
[2018-05-22] MEDS ORDERED: Cefepime IV 2 gm in Dextrose 2 GM/100 ML BAG IVPB SCH ×2 (19:15→21:30)
[2018-05-22 19:26] LABS: BANDS 40 % (0-2); EOSINOPHIL 2 % (0-4); LYMPHOCYTE 5 % (20-40); METAMYELOCYTE 1 % (0-0); MONOCYTE 2 % (0-10); NEUTROPHIL 50 % (50-75); TOTAL CELLS COUNTED 100
[2018-05-22 19:27] LABS: ANISOCYTOSIS MODERATE; PLATELET ESTIMATE DECREASED (NORMAL)
[2018-05-22 19:31] LABS: INR 3.5; PROTHROMBIN TIME 38.2 SECONDS (9.7-12.2)
[2018-05-22 19:34] LABS: BURR CELLS SLIGHT; HYPOCHROMIC SLIGHT; POIKILOCYTOSIS SLIGHT; POLYCHROMIC SLIGHT
[2018-05-22 19:35] LABS: TOXIC GRANULATION PRESENT
[2018-05-22 19:36] LABS: SCHISTOCYTES SLIGHT
[2018-05-22] MEDS ORDERED: Vancomycin 1 gm/NS 200 ml 1 GM/200 ML BAG IVPB STA (19:40)
[2018-05-22 19:45] LABS: VENOUS BLOOD GAS BASE EXCESS -9.3 mmol/L (0.0-2.0); VENOUS BLOOD GAS PCO2 34 mmHg (40-60); VENOUS BLOOD GAS PO2 42 mm/Hg (30-55); VENOUS BLOOD PH 7.29 (7.32-7.43)
[2018-05-22] MEDS ORDERED: Phytonadione 10 mg/ml Inj (Adult) IV STA (20:07)
[2018-05-22] MEDS: Sodium Bicarbonate 8.4% 75 MEQ in Sodium Chloride 0.45% 925 ML IV SCH (20:36)
--- NOTE | 2018-05-22 21:01 | CP.PCM.CON ---
History of Present Illness - History of Present Illness History of Present Illness: 47 y/o male with pmx of nephrolithiasis, Hepatitis C, leukopenia and substance abuse presents to [facility] with c/o abdominal pain for 3 days. As per mother at bedside, patient refused to come to the hospital and delayed comming to the ER. Patient notes he took 5 bags of heroin yesterday. Patient (+) abdominal pain/flank pain, no radiation, denies any fevers, (+)diarrhea, denies SOB Allergies: denies PMHx: nephrolithiasis, Hepatitis C PSHx: intervention for nephrolithiasis, but unable to provide FamHx: denies Social: drinks 10 60-oz beers daily, uses 20 bags heroin daily IV -Patient seemed intoxicated while providing history. his speach was slow and at times incomprehensible. Review of Systems - Review of Systems Review of Systems: as per HPI Past Patient History - Infectious Disease Hx of Infectious Diseases: None - Tetanus Immunizations Tetanus Immunization: Unknown - Past Medical History & Family History Past Medical History?: Yes - Past Social History Smoking Status: Heavy Smoker > 10 Cigarettes Daily Drugs: Opiates Home Situation {Lives}: With Family - CARDIAC Hx Hypertension: No - PULMONARY Hx Asthma: Yes - NEUROLOGICAL Hx Seizures: No - HEENT Hx HEENT Problems: No - RENAL Hx Chronic Kidney Disease: No Hx Kidney Stones: Yes - ENDOCRINE/METABOLIC Hx Endocrine Disorders: No - HEMATOLOGICAL/ONCOLOGICAL Hx Human Immunodeficiency Virus (HIV): No - INTEGUMENTARY Hx Dermatological Problems: No - MUSCULOSKELETAL/RHEUMATOLOGICAL Hx Arthritis: Yes Hx Fractures: Yes (right arm) - GASTROINTESTINAL Other/Comment: right groin hernia - GENITOURINARY/GYNECOLOGICAL Hx Sexually Transmitted Disorders: No - PSYCHIATRIC Hx Substance Use: Yes - SURGICAL HISTORY Hx Coronary Stent: No - ANESTHESIA Hx Anesthesia: Yes Hx Anesthesia Reactions: No Hx Malignant Hyperthermia: No Meds Allergies/Adverse Reactions: Allergies Allergy/AdvReac Type Severity Reaction Status Date / Time No Known Allergies Allergy Verified 05/22/18 17:34 - Medications Medications: Current Medications Cefepime HCl (Maxipime Iv 2 Gm Premix) 2 gm in 100 mls @ 200 mls/hr IVPB ONCE ROBYN PRN Reason: Protocol Stop: 05/27/18 19:16 Vancomycin/Sodium Chloride (Vancomycin 1 Gm/Ns 200 Ml) 1 gm in 200 mls @ 133 mls/hr IVPB STAT STA PRN Reason: Protocol Stop: 05/22/18 21:10 Last Admin: 05/22/18 19:58 Dose: 133 mls/hr Sodium Bicarbonate 75 meq/ (Sodium Chloride) 1,000 mls @ 100 mls/hr IV .Q10H [facility] Last Admin: 05/22/18 20:36 Dose: 100 mls/hr Tamsulosin HCl (Flomax) 0.4 mg PO DAILY [facility] Physical Exam - Head Exam Head Exam: ATRAUMATIC, NORMOCEPHALIC Additional comments: temporal muscle atrophy c/w cachecia - Eye Exam Eye Exam: Scleral icterus Pupil Exam: Miosis - ENT Exam ENT Exam: Mucous Membranes Dry - Respiratory Exam Respiratory Exam: Clear to Auscultation Bilateral, NORMAL BREATHING PATTERN. absent: Wheezes, Respiratory Distress, Stridor - Cardiovascular Exam Cardiovascular Exam: REGULAR RHYTHM, +S1, +S2 - GI/Abdominal Exam GI & Abdominal Exam: Soft, Tenderness. absent: Diminished Bowel Sounds, Firm, Guarding, Rebound, Rigid - Extremities Exam Extremities exam: Positive for: normal inspection. Negative for: pedal edema - Neurological Exam Neurological exam: Altered Results - Vital Signs Recent Vital Signs: Last Vital Signs Temp 98.0 F 05/22/18 17:34 Pulse 118 H 05/22/18 17:34 Resp 18 05/22/18 20:03 BP 101/57 L 05/22/18 20:03 Pulse Ox 98 05/22/18 20:03 - Labs Result Diagrams: 05/22/18 18:52 05/22/18 18:52 Labs: Laboratory Results - last 24 hr 05/22/18 05/22/18 05/22/18 18:52 18:52 18:52 WBC 22.9 H D RBC 3.17 L Hgb 10.8 L Hct 31.6 L MCV 99.6 H D MCH 34.0 H MCHC 34.1 RDW 18.6 H Plt Count 45 L MPV 12.6 H Neut % (Auto) 91.6 H Lymph % (Auto) 4.6 L [place] % (Auto) 2.5 Eos % (Auto) 1.1 Baso % (Auto) 0.2 Neut # (Auto) 21.0 H Lymph # (Auto) 1.0 [place] # (Auto) 0.6 Eos # (Auto) 0.3 Baso # (Auto) 0.0 Neutrophils % (Manual) 50 Band Neutrophils % 40 H* Lymphocytes % (Manual) 5 L Monocytes % (Manual) 2 Eosinophils % (Manual) 2 Metamyelocytes % 1 H Toxic Granulation Present Platelet Estimate Decreased L Polychromasia Slight Hypochromasia (manual) Slight Poikilocytosis (manual Slight Anisocytosis (manual) Moderate Macrocytosis (manual) Slight Brandy Cells Slight Schistocytes Slight PT 38.2 H* INR 3.5 APTT 55 H pO2 VBG pH VBG pCO2 VBG HCO3 VBG Total CO2 VBG O2 Sat (Calc) VBG Base Excess VBG Potassium Glucose Lactate Crit Value Called To Crit Value Called By Crit Value Read Back Blood Gas Notified Time Sodium Potassium Chloride Carbon Dioxide Anion Gap BUN Creatinine Est GFR ( Amer) Est GFR (Non-Af Amer) Random Glucose Calcium Total Bilirubin AST ALT Alkaline Phosphatase Ammonia Total Protein Albumin Globulin Albumin/Globulin Ratio Lipase Venous Blood Potassium Urine Color [place] Urine Clarity Hazy Urine pH 5.0 Ur Specific [place] 1.016 Urine Protein 1+ H Urine Glucose (UA) Normal Urine Ketones Negative Urine Blood 3+ H Urine Nitrate Negative Urine Bilirubin 1+ H Urine Urobilinogen 4.0 Ur Leukocyte Esterase 3+ H Urine WBC (Auto) 451 H Urine RBC (Auto) 228 H Ur Squamous Epith Cells 1 Urine Bacteria Many H Hyaline Casts 11-20 H Urine Yeast (Budding) Occ H Urine Opiates Screen Urine Methadone Screen Ur Barbiturates Screen Ur Phencyclidine Scrn Ur Amphetamines Screen U Benzodiazepines Scrn U Oth Cocaine Metabols U Cannabinoids Screen Alcohol, Quantitative 05/22/18 05/22/18 05/22/18 18:52 18:52 19:00 WBC RBC Hgb Hct MCV MCH MCHC RDW Plt Count MPV Neut % (Auto) Lymph % (Auto) [place] % (Auto) Eos % (Auto) Baso % (Auto) Neut # (Auto) Lymph # (Auto) [place] # (Auto) Eos # (Auto) Baso # (Auto) Neutrophils % (Manual) Band Neutrophils % Lymphocytes % (Manual) Monocytes % (Manual) Eosinophils % (Manual) Metamyelocytes % Toxic Granulation Platelet Estimate Polychromasia Hypochromasia (manual) Poikilocytosis (manual Anisocytosis (manual) Macrocytosis (manual) Stamps Cells Schistocytes PT INR APTT pO2 VBG pH VBG pCO2 VBG HCO3 VBG Total CO2 VBG O2 Sat (Calc) VBG Base Excess VBG Potassium Glucose Lactate Crit Value Called To Crit Value Called By Crit Value Read Back Blood Gas Notified Time Sodium 137 Potassium 5.3 H Chloride 105 Carbon Dioxide 18 L Anion Gap 19 BUN 33 H Creatinine 2.6 H Est GFR ( Amer) 32 Est GFR (Non-Af Amer) 26 Random Glucose 108 Calcium 8.7 Total Bilirubin 18.7 H AST 114 H ALT 53 Alkaline Phosphatase 84 Ammonia 12 D Total Protein 6.3 Albumin 2.2 L Globulin 4.1 H Albumin/Globulin Ratio 0.5 L Lipase 611 H Venous Blood Potassium Urine Color Urine Clarity Urine pH Ur Specific [place] Urine Protein Urine Glucose (UA) Urine Ketones Urine Blood Urine Nitrate Urine Bilirubin Urine Urobilinogen Ur Leukocyte Esterase Urine WBC (Auto) Urine RBC (Auto) Ur Squamous Epith Cells Urine Bacteria Hyaline Casts Urine Yeast (Budding) Urine Opiates Screen Positive H Urine Methadone Screen Negative Ur Barbiturates Screen Negative Ur Phencyclidine Scrn Negative Ur Amphetamines Screen Negative U Benzodiazepines Scrn Positive U Oth Cocaine Metabols Negative U Cannabinoids Screen Negative Alcohol, Quantitative < 10 05/22/18 19:40 WBC RBC Hgb Hct MCV MCH MCHC RDW Plt Count MPV Neut % (Auto) Lymph % (Auto) [place] % (Auto) Eos % (Auto) Baso % (Auto) Neut # (Auto) Lymph # (Auto) [place] # (Auto) Eos # (Auto) Baso # (Auto) Neutrophils % (Manual) Band Neutrophils % Lymphocytes % (Manual) Monocytes % (Manual) Eosinophils % (Manual) Metamyelocytes % Toxic Granulation Platelet Estimate Polychromasia Hypochromasia (manual) Poikilocytosis (manual Anisocytosis (manual) Macrocytosis (manual) Stamps Cells Schistocytes PT INR APTT pO2 42 VBG pH 7.29 L VBG pCO2 34 L VBG HCO3 16.9 VBG Total CO2 17.3 L VBG O2 Sat (Calc) 74.6 H VBG Base Excess -9.3 L VBG Potassium 4.8 Glucose 99 Lactate 6.1 H* Crit Value Called To Er nurse Crit Value Called By Courtney rt Crit Value Read Back Y Blood Gas Notified Time 1944 Sodium 134.0 Potassium Chloride 103.0 Carbon Dioxide Anion Gap BUN Creatinine Est GFR ( Amer) Est GFR (Non-Af Amer) Random Glucose Calcium Total Bilirubin AST ALT Alkaline Phosphatase Ammonia Total Protein Albumin Globulin Albumin/Globulin Ratio Lipase Venous Blood Potassium 4.8 Urine Color Urine Clarity Urine pH Ur Specific [place] Urine Protein Urine Glucose (UA) Urine Ketones Urine Blood Urine Nitrate Urine Bilirubin Urine Urobilinogen Ur Leukocyte Esterase Urine WBC (Auto) Urine RBC (Auto) Ur Squamous Epith Cells Urine Bacteria Hyaline Casts Urine Yeast (Budding) Urine Opiates Screen Urine Methadone Screen Ur Barbiturates Screen Ur Phencyclidine Scrn Ur Amphetamines Screen U Benzodiazepines Scrn U Oth Cocaine Metabols U Cannabinoids Screen Alcohol, Quantitative Assessment & Plan - Assessment and Plan (Free Text) Assessment: AMS: suspect still under the influence of heroin -Sepsis: not in shock, continue IVF as per septic protocol, continue broad spectrum abx, serial lactic, keep NPO, flomax orally, -urology eval for source control -Hepatic cirrhosis: distended abdomen, increase in INR and increase in T. tamera MELD score high (40), will benefit from Facility where hepatology/liver transplant available (however patient may disqulify 2nd non-compliance) -dvt ppx : INR >2.0, SCDs -PUD rx protonix - - Date & Time Date: 05/22/18 Time: 21:05
[2018-05-22] MEDS ORDERED: Phytonadione 10 mg/ml Inj (Adult) ONE (21:09)
--- NOTE | 2018-05-22 21:34 | CP.PCM.HP ---
<Betsy TorresKedar - Last Filed: 05/22/18 22:40> History of Present Illness - History of Present Illness History of Present Illness: CC: abdominal pain HPI: This is a 47 year old male with PMHx of Hepatic Encephalopathy 2/2 cirrhosis, Untreated Hepatitis C (HCC ruled out), pancytopenia, Splenomegaly, Nephrolithasis, Polysubstance abuse who presents to the ED with abdominal pain. Patient is slurring his words and is a poor historian. Much of the history is obtained from the mother at bedside. As per mother he has been having abdominal pain for 5 days but did not want to go to the ER. Patient took some Naprosyn for his pain which helped some. Patient's pain is generalized throughout the abdomen and radiates to the back. Today patient vomited once which was clear. Patient has not been able to tolerate food due to abdominal pain. Patient also has had 2 days of nonbloody diarrhea. Patient admits to subjective fevers. Currently in ER patient is lethargic and unable to provide a full history. Patient admits to abdominal and back pain, but full ROS unobtainable. Allergies: NKDA PMD: Lito PMHx: Hepatic Encephalopathy 2/2 cirrhosis, Untreated Hepatitis C (HCC ruled out ), pancytopenia, Nephrolithasis, Polysubstance abuse PSHx: intervention for nephrolithiasis SHx: patient unable to provide this information; as per prior admissions: drinks 10 60-oz beers daily, uses 20 bags heroin daily IV FHx: denies Present on Admission - Present on Admission Any Indicators Present on Admission: No History of DVT/PE: No History of Uncontrolled Diabetes: No Urinary Catheter: No Decubitus Ulcer Present: No Review of Systems - Review of Systems Systems not reviewed;Unavailable: Intoxicated - Constitutional Constitutional: Fever - Cardiovascular Cardiovascular: Dyspnea. absent: Chest Pain, Pedal Edema - Respiratory Respiratory: absent: Cough - Gastrointestinal Gastrointestinal: Abdominal Pain, Diarrhea, Nausea, Vomiting. absent: Constipation, Hematochezia Past Patient History - Infectious Disease Hx of Infectious Diseases: None - Tetanus Immunizations Tetanus Immunization: Unknown - Past Medical History & Family History Past Medical History?: Yes - Past Social History Smoking Status: Heavy Smoker > 10 Cigarettes Daily Drugs: Opiates Home Situation {Lives}: With Family - CARDIAC Hx Hypertension: No - PULMONARY Hx Asthma: Yes - NEUROLOGICAL Hx Seizures: No - HEENT Hx HEENT Problems: No - RENAL Hx Chronic Kidney Disease: No Hx Kidney Stones: Yes - ENDOCRINE/METABOLIC Hx Endocrine Disorders: No - HEMATOLOGICAL/ONCOLOGICAL Hx Human Immunodeficiency Virus (HIV): No - INTEGUMENTARY Hx Dermatological Problems: No - MUSCULOSKELETAL/RHEUMATOLOGICAL Hx Arthritis: Yes Hx Fractures: Yes (right arm) - GASTROINTESTINAL Other/Comment: right groin hernia - GENITOURINARY/GYNECOLOGICAL Hx Sexually Transmitted Disorders: No - PSYCHIATRIC Hx Substance Use: Yes - SURGICAL HISTORY Hx Coronary Stent: No - ANESTHESIA Hx Anesthesia: Yes Hx Anesthesia Reactions: No Hx Malignant Hyperthermia: No Meds Allergies/Adverse Reactions: Allergies Allergy/AdvReac Type Severity Reaction Status Date / Time No Known Allergies Allergy Verified 05/22/18 17:34 Physical Exam - Constitutional Appears: Toxic, In Acute Distress, Unkempt, Older Than Stated Age, Confused Additional comments: jaundiced - Head Exam Head Exam: ATRAUMATIC, NORMAL INSPECTION, NORMOCEPHALIC - Eye Exam Eye Exam: Scleral icterus - ENT Exam ENT Exam: Mucous Membranes Dry - Respiratory Exam Respiratory Exam: Clear to Auscultation Bilateral, NORMAL BREATHING PATTERN - Cardiovascular Exam Cardiovascular Exam: Tachycardia, +S1, +S2, Systolic Murmur - GI/Abdominal Exam GI & Abdominal Exam: Distended, Guarding, Soft, Tenderness Additional comments: ventral hernia - Extremities Exam Extremities exam: Positive for: normal inspection. Negative for: pedal edema, tenderness - Back Exam Back exam: CVA tenderness (L), CVA tenderness (R) - Neurological Exam Neurological exam: Alert - Psychiatric Exam Psychiatric exam: Depressed - Skin Skin Exam: Intact, Normal Color, Warm Results - Vital Signs Recent Vital Signs: Last Vital Signs Temp 98.4 F 05/22/18 21:25 Pulse 103 H 05/22/18 20:59 Resp 18 05/22/18 20:59 BP 111/59 L 05/22/18 20:59 Pulse Ox 100 05/22/18 20:59 - Labs Result Diagrams: 05/22/18 18:52 05/22/18 18:52 Labs: Laboratory Results - last 24 hr 05/22/18 05/22/18 05/22/18 18:52 18:52 18:52 WBC 22.9 H D RBC 3.17 L Hgb 10.8 L Hct 31.6 L MCV 99.6 H D MCH 34.0 H MCHC 34.1 RDW 18.6 H Plt Count 45 L MPV 12.6 H Neut % (Auto) 91.6 H Lymph % (Auto) 4.6 L [place] % (Auto) 2.5 Eos % (Auto) 1.1 Baso % (Auto) 0.2 Neut # (Auto) 21.0 H Lymph # (Auto) 1.0 [place] # (Auto) 0.6 Eos # (Auto) 0.3 Baso # (Auto) 0.0 Neutrophils % (Manual) 50 Band Neutrophils % 40 H* Lymphocytes % (Manual) 5 L Monocytes % (Manual) 2 Eosinophils % (Manual) 2 Metamyelocytes % 1 H Toxic Granulation Present Platelet Estimate Decreased L Polychromasia Slight Hypochromasia (manual) Slight Poikilocytosis (manual Slight Anisocytosis (manual) Moderate Macrocytosis (manual) Slight Brandy Cells Slight Schistocytes Slight PT 38.2 H* INR 3.5 APTT 55 H pO2 VBG pH VBG pCO2 VBG HCO3 VBG Total CO2 VBG O2 Sat (Calc) VBG Base Excess VBG Potassium Glucose Lactate Crit Value Called To Crit Value Called By Crit Value Read Back Blood Gas Notified Time Sodium Potassium Chloride Carbon Dioxide Anion Gap BUN Creatinine Est GFR ( Amer) Est GFR (Non-Af Amer) Random Glucose Calcium Total Bilirubin AST ALT Alkaline Phosphatase Ammonia Total Protein Albumin Globulin Albumin/Globulin Ratio Lipase Venous Blood Potassium Urine Color [place] Urine Clarity Hazy Urine pH 5.0 Ur Specific [place] 1.016 Urine Protein 1+ H Urine Glucose (UA) Normal Urine Ketones Negative Urine Blood 3+ H Urine Nitrate Negative Urine Bilirubin 1+ H Urine Urobilinogen 4.0 Ur Leukocyte Esterase 3+ H Urine WBC (Auto) 451 H Urine RBC (Auto) 228 H Ur Squamous Epith Cells 1 Urine Bacteria Many H Hyaline Casts 11-20 H Urine Yeast (Budding) Occ H Urine Opiates Screen Urine Methadone Screen Ur Barbiturates Screen Ur Phencyclidine Scrn Ur Amphetamines Screen U Benzodiazepines Scrn U Oth Cocaine Metabols U Cannabinoids Screen Alcohol, Quantitative 05/22/18 05/22/18 05/22/18 18:52 18:52 19:00 WBC RBC Hgb Hct MCV MCH MCHC RDW Plt Count MPV Neut % (Auto) Lymph % (Auto) [place] % (Auto) Eos % (Auto) Baso % (Auto) Neut # (Auto) Lymph # (Auto) [place] # (Auto) Eos # (Auto) Baso # (Auto) Neutrophils % (Manual) Band Neutrophils % Lymphocytes % (Manual) Monocytes % (Manual) Eosinophils % (Manual) Metamyelocytes % Toxic Granulation Platelet Estimate Polychromasia Hypochromasia (manual) Poikilocytosis (manual Anisocytosis (manual) Macrocytosis (manual) [place] Cells Schistocytes PT INR APTT pO2 VBG pH VBG pCO2 VBG HCO3 VBG Total CO2 VBG O2 Sat (Calc) VBG Base Excess VBG Potassium Glucose Lactate Crit Value Called To Crit Value Called By Crit Value Read Back Blood Gas Notified Time Sodium 137 Potassium 5.3 H Chloride 105 Carbon Dioxide 18 L Anion Gap 19 BUN 33 H Creatinine 2.6 H Est GFR ( Amer) 32 Est GFR (Non-Af Amer) 26 Random Glucose 108 Calcium 8.7 Total Bilirubin 18.7 H AST 114 H ALT 53 Alkaline Phosphatase 84 Ammonia 12 D Total Protein 6.3 Albumin 2.2 L Globulin 4.1 H Albumin/Globulin Ratio 0.5 L Lipase 611 H Venous Blood Potassium Urine Color Urine Clarity Urine pH Ur Specific [place] Urine Protein Urine Glucose (UA) Urine Ketones Urine Blood Urine Nitrate Urine Bilirubin Urine Urobilinogen Ur Leukocyte Esterase Urine WBC (Auto) Urine RBC (Auto) Ur Squamous Epith Cells Urine Bacteria Hyaline Casts Urine Yeast (Budding) Urine Opiates Screen Positive H Urine Methadone Screen Negative Ur Barbiturates Screen Negative Ur Phencyclidine Scrn Negative Ur Amphetamines Screen Negative U Benzodiazepines Scrn Positive U Oth Cocaine Metabols Negative U Cannabinoids Screen Negative Alcohol, Quantitative < 10 05/22/18 19:40 WBC RBC Hgb Hct MCV MCH MCHC RDW Plt Count MPV Neut % (Auto) Lymph % (Auto) [place] % (Auto) Eos % (Auto) Baso % (Auto) Neut # (Auto) Lymph # (Auto) [place] # (Auto) Eos # (Auto) Baso # (Auto) Neutrophils % (Manual) Band Neutrophils % Lymphocytes % (Manual) Monocytes % (Manual) Eosinophils % (Manual) Metamyelocytes % Toxic Granulation Platelet Estimate Polychromasia Hypochromasia (manual) Poikilocytosis (manual Anisocytosis (manual) Macrocytosis (manual) [place] Cells Schistocytes PT INR APTT pO2 42 VBG pH 7.29 L VBG pCO2 34 L VBG HCO3 16.9 VBG Total CO2 17.3 L VBG O2 Sat (Calc) 74.6 H VBG Base Excess -9.3 L VBG Potassium 4.8 Glucose 99 Lactate 6.1 H* Crit Value Called To Er nurse Crit Value Called By Courtney rt Crit Value Read Back Y Blood Gas Notified Time 1944 Sodium 134.0 Potassium Chloride 103.0 Carbon Dioxide Anion Gap BUN Creatinine Est GFR ( Amer) Est GFR (Non-Af Amer) Random Glucose Calcium Total Bilirubin AST ALT Alkaline Phosphatase Ammonia Total Protein Albumin Globulin Albumin/Globulin Ratio Lipase Venous Blood Potassium 4.8 Urine Color Urine Clarity Urine pH Ur Specific [place] Urine Protein Urine Glucose (UA) Urine Ketones Urine Blood Urine Nitrate Urine Bilirubin Urine Urobilinogen Ur Leukocyte Esterase Urine WBC (Auto) Urine RBC (Auto) Ur Squamous Epith Cells Urine Bacteria Hyaline Casts Urine Yeast (Budding) Urine Opiates Screen Urine Methadone Screen Ur Barbiturates Screen Ur Phencyclidine Scrn Ur Amphetamines Screen U Benzodiazepines Scrn U Oth Cocaine Metabols U Cannabinoids Screen Alcohol, Quantitative Assessment & Plan - Assessment and Plan (Free Text) Assessment: Sepsis 2/2 pyelonephritis admitted to ICU bands 40 lactate 6.1 UA: 1+ protein, 3+blood, 3+leuk esterase, WBC 451, RBC 228, hyaline casts 11-20 f/u urine cultures f/u blood cultures f/u ECHO NPO serial lactic acid abd/ pelvic CT: severe diffuse colonic wall thickening consistent with colitis. Cirrhosis and sequelae of portal hypertension. 13 x 6mm obstructing stone in the proximal left ureter with moderate hydronephrosis Urology consulted, Dr. Jorge Luis Ratliff, help appreciated ID, Dr. Harris consulted, help appreciated Meds: 1/2NS with sodium bicarb at 100mls/hr Cefepime 2gm q24h Zosyn 2.25gm q6h stopped, change to Merrem Flomax .4mg po daily Hepatic Cirrhosis Meld score: 40-- 71.3% 3 month mortality INR: 3.5 Albumin 2.2, Albumin 25gm given BUN/Cr: 33/2.6 f/u abdominal ultrasound Hyperkalemia K+ 5.3 monitor Heroin Abuse positive urine opiate screen f/u ECHO Prophylaxis SCDs No VTE 2/2 thrombocytopenia <DwayneanastasiiaCameron hahn P - Last Filed: 05/23/18 06:51> Results - Vital Signs Recent Vital Signs: Last Vital Signs Temp 97.8 F 05/23/18 00:00 Pulse 108 H 05/23/18 00:20 Resp 13 05/23/18 00:20 BP 99/45 L 05/23/18 00:20 Pulse Ox 97 05/23/18 00:20 - Labs Result Diagrams: 05/22/18 18:52 05/23/18 06:17 Labs: Laboratory Results - last 24 hr 05/22/18 05/22/18 05/22/18 18:52 18:52 18:52 WBC 22.9 H D RBC 3.17 L Hgb 10.8 L Hct 31.6 L MCV 99.6 H D MCH 34.0 H MCHC 34.1 RDW 18.6 H Plt Count 45 L MPV 12.6 H Neut % (Auto) 91.6 H Lymph % (Auto) 4.6 L [place] % (Auto) 2.5 Eos % (Auto) 1.1 Baso % (Auto) 0.2 Neut # (Auto) 21.0 H Lymph # (Auto) 1.0 [place] # (Auto) 0.6 Eos # (Auto) 0.3 Baso # (Auto) 0.0 Neutrophils % (Manual) 50 Band Neutrophils % 40 H* Lymphocytes % (Manual) 5 L Monocytes % (Manual) 2 Eosinophils % (Manual) 2 Metamyelocytes % 1 H Toxic Granulation Present Platelet Estimate Decreased L Polychromasia Slight Hypochromasia (manual) Slight Poikilocytosis (manual Slight Anisocytosis (manual) Moderate Macrocytosis (manual) Slight Brandy Cells Slight Schistocytes Slight PT 38.2 H* INR 3.5 APTT 55 H pO2 VBG pH VBG pCO2 VBG HCO3 VBG Total CO2 VBG O2 Sat (Calc) VBG Base Excess VBG Potassium Glucose Lactate Crit Value Called To Crit Value Called By Crit Value Read Back Blood Gas Notified Time Sodium Potassium Chloride Carbon Dioxide Anion Gap BUN Creatinine Est GFR ( Amer) Est GFR (Non-Af Amer) Random Glucose Lactic Acid Calcium Phosphorus Magnesium Total Bilirubin AST ALT Alkaline Phosphatase Ammonia Total Protein Albumin Globulin Albumin/Globulin Ratio Lipase Venous Blood Potassium Urine Color [place] Urine Clarity Hazy Urine pH 5.0 Ur Specific [place] 1.016 Urine Protein 1+ H Urine Glucose (UA) Normal Urine Ketones Negative Urine Blood 3+ H Urine Nitrate Negative Urine Bilirubin 1+ H Urine Urobilinogen 4.0 Ur Leukocyte Esterase 3+ H Urine WBC (Auto) 451 H Urine RBC (Auto) 228 H Ur Squamous Epith Cells 1 Urine Bacteria Many H Hyaline Casts 11-20 H Urine Yeast (Budding) Occ H Urine Opiates Screen Urine Methadone Screen Ur Barbiturates Screen Ur Phencyclidine Scrn Ur Amphetamines Screen U Benzodiazepines Scrn U Oth Cocaine Metabols U Cannabinoids Screen Alcohol, Quantitative 05/22/18 05/22/18 05/22/18 18:52 18:52 19:00 WBC RBC Hgb Hct MCV MCH MCHC RDW Plt Count MPV Neut % (Auto) Lymph % (Auto) [place] % (Auto) Eos % (Auto) Baso % (Auto) Neut # (Auto) Lymph # (Auto) [place] # (Auto) Eos # (Auto) Baso # (Auto) Neutrophils % (Manual) Band Neutrophils % Lymphocytes % (Manual) Monocytes % (Manual) Eosinophils % (Manual) Metamyelocytes % Toxic Granulation Platelet Estimate Polychromasia Hypochromasia (manual) Poikilocytosis (manual Anisocytosis (manual) Macrocytosis (manual) Brandy Cells Schistocytes PT INR APTT pO2 VBG pH VBG pCO2 VBG HCO3 VBG Total CO2 VBG O2 Sat (Calc) VBG Base Excess VBG Potassium Glucose Lactate Crit Value Called To Crit Value Called By Crit Value Read Back Blood Gas Notified Time Sodium 137 Potassium 5.3 H Chloride 105 Carbon Dioxide 18 L Anion Gap 19 BUN 33 H Creatinine 2.6 H Est GFR ( Amer) 32 Est GFR (Non-Af Amer) 26 Random Glucose 108 Lactic Acid Calcium 8.7 Phosphorus Magnesium Total Bilirubin 18.7 H AST 114 H ALT 53 Alkaline Phosphatase 84 Ammonia 12 D Total Protein 6.3 Albumin 2.2 L Globulin 4.1 H Albumin/Globulin Ratio 0.5 L Lipase 611 H Venous Blood Potassium Urine Color Urine Clarity Urine pH Ur Specific [place] Urine Protein Urine Glucose (UA) Urine Ketones Urine Blood Urine Nitrate Urine Bilirubin Urine Urobilinogen Ur Leukocyte Esterase Urine WBC (Auto) Urine RBC (Auto) Ur Squamous Epith Cells Urine Bacteria Hyaline Casts Urine Yeast (Budding) Urine Opiates Screen Positive H Urine Methadone Screen Negative Ur Barbiturates Screen Negative Ur Phencyclidine Scrn Negative Ur Amphetamines Screen Negative U Benzodiazepines Scrn Positive U Oth Cocaine Metabols Negative U Cannabinoids Screen Negative Alcohol, Quantitative < 10 05/22/18 05/23/18 05/23/18 19:40 00:23 06:17 WBC RBC Hgb Hct MCV MCH MCHC RDW Plt Count MPV Neut % (Auto) Lymph % (Auto) [place] % (Auto) Eos % (Auto) Baso % (Auto) Neut # (Auto) Lymph # (Auto) [place] # (Auto) Eos # (Auto) Baso # (Auto) Neutrophils % (Manual) Band Neutrophils % Lymphocytes % (Manual) Monocytes % (Manual) Eosinophils % (Manual) Metamyelocytes % Toxic Granulation Platelet Estimate Polychromasia Hypochromasia (manual) Poikilocytosis (manual Anisocytosis (manual) Macrocytosis (manual) [place] Cells Schistocytes PT INR APTT pO2 42 VBG pH 7.29 L VBG pCO2 34 L VBG HCO3 16.9 VBG Total CO2 17.3 L VBG O2 Sat (Calc) 74.6 H VBG Base Excess -9.3 L VBG Potassium 4.8 Glucose 99 Lactate 6.1 H* Crit Value Called To Er nurse Crit Value Called By Courtney rt Crit Value Read Back Y Blood Gas Notified Time 1944 Sodium 134.0 Potassium Chloride 103.0 Carbon Dioxide Anion Gap BUN Creatinine Est GFR ( Amer) Est GFR (Non-Af Amer) Random Glucose Lactic Acid 3.3 H 2.1 Calcium Phosphorus Magnesium Total Bilirubin AST ALT Alkaline Phosphatase Ammonia Total Protein Albumin Globulin Albumin/Globulin Ratio Lipase Venous Blood Potassium 4.8 Urine Color Urine Clarity Urine pH Ur Specific [place] Urine Protein Urine Glucose (UA) Urine Ketones Urine Blood Urine Nitrate Urine Bilirubin Urine Urobilinogen Ur Leukocyte Esterase Urine WBC (Auto) Urine RBC (Auto) Ur Squamous Epith Cells Urine Bacteria Hyaline Casts Urine Yeast (Budding) Urine Opiates Screen Urine Methadone Screen Ur Barbiturates Screen Ur Phencyclidine Scrn Ur Amphetamines Screen U Benzodiazepines Scrn U Oth Cocaine Metabols U Cannabinoids Screen Alcohol, Quantitative 05/23/18 06:17 WBC RBC Hgb Hct MCV MCH MCHC RDW Plt Count MPV Neut % (Auto) Lymph % (Auto) [place] % (Auto) Eos % (Auto) Baso % (Auto) Neut # (Auto) Lymph # (Auto) [place] # (Auto) Eos # (Auto) Baso # (Auto) Neutrophils % (Manual) Band Neutrophils % Lymphocytes % (Manual) Monocytes % (Manual) Eosinophils % (Manual) Metamyelocytes % Toxic Granulation Platelet Estimate Polychromasia Hypochromasia (manual) Poikilocytosis (manual Anisocytosis (manual) Macrocytosis (manual) Brandy Cells Schistocytes PT INR APTT pO2 VBG pH VBG pCO2 VBG HCO3 VBG Total CO2 VBG O2 Sat (Calc) VBG Base Excess VBG Potassium Glucose Lactate Crit Value Called To Crit Value Called By Crit Value Read Back Blood Gas Notified Time Sodium 138 Potassium 4.1 Chloride 107 Carbon Dioxide 21 L Anion Gap 14 BUN 38 H Creatinine 2.0 H Est GFR ( Amer) 43 Est GFR (Non-Af Amer) 36 Random Glucose 65 L Lactic Acid Calcium 7.4 L Phosphorus 4.9 H Magnesium 1.3 L Total Bilirubin 15.8 H AST 73 H D ALT 48 Alkaline Phosphatase 63 Ammonia Total Protein 5.2 L Albumin 1.7 L D Globulin 3.5 Albumin/Globulin Ratio 0.5 L Lipase Venous Blood Potassium Urine Color Urine Clarity Urine pH Ur Specific [place] Urine Protein Urine Glucose (UA) Urine Ketones Urine Blood Urine Nitrate Urine Bilirubin Urine Urobilinogen Ur Leukocyte Esterase Urine WBC (Auto) Urine RBC (Auto) Ur Squamous Epith Cells Urine Bacteria Hyaline Casts Urine Yeast (Budding) Urine Opiates Screen Urine Methadone Screen Ur Barbiturates Screen Ur Phencyclidine Scrn Ur Amphetamines Screen U Benzodiazepines Scrn U Oth Cocaine Metabols U Cannabinoids Screen Alcohol, Quantitative Attending/Attestation - Attestation I have personally seen and examined this patient.: Yes I have fully participated in the care of the patient.: Yes I have reviewed all pertinent clinical information: Yes Notes (Text): Assessment Presented with diffuse abd pain, more in left flank and CVA area, with leucocytosis, bands, maintained BP, lacticacidosis, RACHANA in a patient with h/o hepc and alcohol related cirrhosis, portal htn, coagulopathy, active heroin and intermittent alochol abuse, also has systolic murmur in precordium, chronic left ureteric/renal pelvis calculus with obstruction left hydro less then prior CT. DD of leucocytosis/bands 1. Obstructed left ureteric calculus, SBP, Bacterimia form prior, endocarditis, bactericmia form ivda. RACHANA form above sepsis vs obstructive vs hepato renal Coagulopathy Active substance abuse Prone for hepatic encephalopathy Plan Broad spectrum abx started on Meropenium, will need ID approval for continuation MRSA abx given single dose of vancomycin, will check levels for ivda Urology consult with Dr. Jorge Luis Morelos Ascitis is small if possible diagnostic tap Albumin, midodrine and octreotide for hepato renal syn Patient single dose of vit k for coagulopathy Nephrology consult See orders for detail.
[2018-05-22] MEDS ORDERED: Piperacill/Tazo 2.25gm in Dex 2.25 GM/50 ML BAG IVPB SCH (22:00)
[2018-05-22] MEDS ORDERED: Meropenem 1 GM in Sodium Chloride 0.9% 100 ML IVPB SCH (22:30)
[2018-05-22] MEDS: Albumin Human 25% (12.5 gm/50 ml) IV SCH (23:26)
--- NOTE | 2018-05-23 00:08 | PCM.SEPTIC ---
Sepsis Progress Note - Reassessment Type Date of Evaluation: 05/22/18 Time of Evaluation: 23:00 Reassessment Type: Non-invasive reassessment - Non Invasive Reassessment Were the most recent vital sign reviewed: Yes Vital Sign (Latest): Temp Pulse Resp BP Pulse Ox 98.4 F 103 H 18 111/59 L 99 05/22/18 21:25 05/22/18 20:59 05/22/18 20:59 05/22/18 20:59 05/22/18 21:41 Cardiovascular: Yes: Murmur, Tachycardia Respiratory: Yes: Normal Breath Sounds. No: Respiratory Distress Capillary Refill: Normal (Less than 2 sec) Pulses: Normal Radial, Normal Dorsalis Pedis, Normal Posterior Tibialis Skin: Warm, Jaundice - Invasive Reassessment (complete 2 of 4) Was a Central Venous Pressure Measurement obtained within 6 Hours after the presentation of septic shock: No Was a central venous oxygen measurement obtained within 6 hours after the presentation of septic shock: No Was a bedside cardiovascular ultrasound performed within 6 hours after the presentation of septic shock: No Was a passive leg raise performed or was a fluid challenge performed within 6 hrs of the initial fluid bolus: No Passive Leg Raise Result: Not Applicable Fluid Challenge performed: Yes
[2018-05-23] MEDS: Sodium Bicarbonate 8.4% 75 MEQ in Sodium Chloride 0.45% 925 ML IV SCH ×2 (06:15→08:13)
[2018-05-23 06:34] LABS: BASO % 0.3 % (0.0-2.0); EOS # 0.4 K/uL (0.0-0.7); EOS % 3.9 % (0.0-4.0); HEMOGLOBIN 8.4 g/dL (12.0-18.0); LYMPH # 0.9 K/uL (1.0-4.3); LYMPH % 8.1 % (20.0-40.0); MEAN CORPUSCULAR HEMOGLOBIN 34.4 pg (27.0-31.0); MEAN CORPUSCULAR HGB CONC 35.1 g/dL (33.0-37.0); MEAN PLATELET VOLUME 12.3 fL (7.2-11.7); MONO # 0.5 K/uL (0.0-0.8); MONO % 4.4 % (0.0-10.0); NEUT # 9.6 K/uL (1.8-7.0); NEUT % 83.3 % (50.0-75.0); PLATELET COUNT 35 K/uL (130-400); RBC 2.45 Mil/uL (4.40-5.90); WHITE BLOOD COUNT 11.5 K/uL (4.8-10.8)
[2018-05-23 06:42] LABS: ALB/GLOB RATIO 0.5 (1.0-2.1); ALBUMIN 1.7 g/dL (3.5-5.0); CALCIUM 7.4 mg/dl (8.6-10.4)
[2018-05-23 06:44] LABS: INR 3.8
[2018-05-23 06:51] LABS: PROTHROMBIN TIME 41.2 SECONDS (9.7-12.2)
[2018-05-23] MEDS: Meropenem 1 GM in Sodium Chloride 0.9% 100 ML IVPB SCH ×2 (08:13→16:26)
[2018-05-23 08:54] LABS: ANISOCYTOSIS SLIGHT; EOSINOPHIL 3 % (0-4); HYPOCHROMIC SLIGHT; MONOCYTE 5 % (0-10); NEUTROPHIL 73 % (50-75); PLATELET ESTIMATE DECREASED (NORMAL); POIKILOCYTOSIS SLIGHT; TOTAL CELLS COUNTED 100
[2018-05-23 08:55] LABS: TARGET CELLS SLIGHT
[2018-05-23 09:39] LABS: BANDS 19 % (0-2)
[2018-05-23] MEDS ORDERED: Albumin Human 25% (12.5 gm/50 ml) IV SCH (10:00)
[2018-05-23] MEDS: Sodium Chloride 0.9% 1,000 ML IV SCH ×2 (10:04→19:46)
[2018-05-23] MEDS: Magnesium Sulfate 1 gm in D5W 1 GM/100 ML BAG IVPB SCH ×2 (10:04→10:30)
--- NOTE | 2018-05-23 10:17 | CT ---
Date of service: 05/22/2018 PROCEDURE: CT Abdomen and Pelvis without intravenous contrast HISTORY: abdominal pain COMPARISON: 04/10/2018 TECHNIQUE: Without contrast.. Contrast dose: 0 Radiation dose: Total exam DLP = 458.21 mGy-cm. This CT exam was performed using one or more of the following dose reduction techniques: Automated exposure control, adjustment of the mA and/or kV according to patient size, and/or use of iterative reconstruction technique. FINDINGS: LOWER THORAX: Bilateral gynecomastia. No infiltrate/ pleural effusion. LIVER: Relative atrophy of right lobe of liver. Nodular contour consistent with hepatic cirrhosis. No mass. No biliary dilatation. GALLBLADDER AND BILE DUCTS: Unremarkable. PANCREAS: Unremarkable. No gross lesion or ductal dilatation. SPLEEN: Splenomegaly. The spleen measures approximately 26 cm AP. No splenic mass. ADRENALS: Unremarkable. No mass. KIDNEYS AND URETERS: No mass or hydronephrosis. Nonobstructing 18 mm proximal left ureteral calculus, previously obstructing on examination of 04/10/2018. Nonobstructing 9 mm left lower pole renal calculus. Additional very small nonobstructing left lower pole renal calculi. VASCULATURE: No evidence of abdominal aortic aneurysm. Varices noted in the left upper abdomen. BOWEL: Alanis colitis, nonspecific. Consider possible infectious etiology. No bowel obstruction. No abnormal small bowel loops. Unremarkable appearance of the stomach. APPENDIX: Not identified. No secondary findings. PERITONEUM: Generalized ascites. No pneumoperitoneum. Small umbilical hernia containing predominantly ascites fluid and a small amount of mesenteric fat. LYMPH NODES: Unremarkable. No enlarged lymph nodes. BLADDER: Poorly distended REPRODUCTIVE: Unremarkable prostate. Patent right processus vaginalis containing ascites fluid. BONES: No acute fracture. OTHER FINDINGS: None. IMPRESSION: Hepatic cirrhosis. Splenomegaly. Ascites. Varices. Nonspecific alanis colitis. Nonobstructing 18 mm proximal left ureteral calculus and 9 mm left lower pole renal calculus. Additional very small nonobstructing left lower pole renal calculi. The preliminary findings for this examination were reported by [email or web address] at 812 a.m. on 05/22/2018.. There is concurrence of this report with the preliminary findings.
--- NOTE | 2018-05-23 11:18 | CP.PCM.CON ---
History of Present Illness - History of Present Illness History of Present Illness: 47 year old male with PMHx of Hepatic Encephalopathy 2/2 cirrhosis, Untreated Hepatitis C (HCC ruled out), pancytopenia, Splenomegaly, Nephrolithasis, Polysubstance abuse who presents to the ED with abdominal pain. he has been having abdominal pain for 5 days but did not want to go to the ER. Patient took some Naprosyn for his pain which helped some. Patient's pain is generalized throughout the abdomen and radiates to the back. T Past medical history: polysubstance abuse, kidney stones, ?liver disease- HEPATITIS c. Past surgical history: Denies Family history: Denies hematologic and oncologic problems Social history: Smokes 2-3 cigarettes daily, drinks 3-4 beers daily, uses heroine Allergies: NKA Review of systems: All remaining review of systems including HEENT, cardiovascular, respiratory, gastrointestinal, genitourinary, musculoskeletal, dermatologic, neurologic, and psychiatric are negative unless mentioned in the HPI. Review of Systems - Review of Systems All systems: reviewed and no additional remarkable complaints except Past Patient History - Infectious Disease Hx of Infectious Diseases: None - Tetanus Immunizations Tetanus Immunization: Unknown - Past Medical History & Family History Past Medical History?: Yes - Past Social History Smoking Status: Heavy Smoker > 10 Cigarettes Daily Drugs: Opiates Home Situation {Lives}: With Family - CARDIAC Hx Hypertension: No - PULMONARY Hx Asthma: Yes - NEUROLOGICAL Hx Seizures: No - HEENT Hx HEENT Problems: No - RENAL Hx Chronic Kidney Disease: No Hx Kidney Stones: Yes - ENDOCRINE/METABOLIC Hx Endocrine Disorders: No - HEMATOLOGICAL/ONCOLOGICAL Hx Human Immunodeficiency Virus (HIV): No - INTEGUMENTARY Hx Dermatological Problems: No - MUSCULOSKELETAL/RHEUMATOLOGICAL Hx Arthritis: Yes Hx Fractures: Yes (right arm) - GASTROINTESTINAL Other/Comment: right groin hernia - GENITOURINARY/GYNECOLOGICAL Hx Sexually Transmitted Disorders: No - PSYCHIATRIC Hx Substance Use: Yes - SURGICAL HISTORY Hx Coronary Stent: No - ANESTHESIA Hx Anesthesia: Yes Hx Anesthesia Reactions: No Hx Malignant Hyperthermia: No Meds Allergies/Adverse Reactions: Allergies Allergy/AdvReac Type Severity Reaction Status Date / Time No Known Allergies Allergy Verified 05/22/18 17:34 - Medications Medications: Current Medications Folic Acid (Folic Acid) 1 mg PO DAILY [facility] Last Admin: 05/23/18 10:06 Dose: 1 mg Gabapentin (Neurontin) 300 mg PO BID [facility] Last Admin: 05/23/18 10:07 Dose: 300 mg Meropenem 1 gm/ Sodium (Chloride) 100 mls @ 100 mls/hr IVPB Q8H [facility] Last Admin: 05/23/18 08:13 Dose: 100 mls/hr Albumin Human (Albumin Human 25% (12.5 Gm/50 Ml)) 100 mls @ 200 mls/hr IV DAILY [facility] Last Admin: 05/23/18 10:05 Dose: 200 mls/hr Albumin Human (Albumin Human 25% (12.5 Gm/50 Ml)) 100 mls @ 200 mls/hr IV DAILY [facility] Last Admin: 05/23/18 11:18 Dose: 200 mls/hr Sodium Chloride (Sodium Chloride 0.9%) 1,000 mls @ 100 mls/hr IV .Q10H [facility] Last Admin: 05/23/18 10:04 Dose: 100 mls/hr Lactulose (Enulose) 30 gm PO TID [facility] Last Admin: 05/23/18 10:06 Dose: 30 gm Midodrine (Proamatine) 7.5 mg PO TID [facility] Last Admin: 05/23/18 10:06 Dose: 7.5 mg Octreotide Acetate (Sandostatin) 200 mcg SC Q8H [facility] Last Admin: 05/23/18 08:13 Dose: 200 mcg Pantoprazole Sodium (Protonix Inj) 40 mg IVP Q12H [facility] Last Admin: 05/23/18 10:08 Dose: 40 mg Phytonadione (Vitamin K Tab) 10 mg PO DAILY [facility] Stop: 05/26/18 10:01 Last Admin: 05/23/18 10:10 Dose: 10 mg Thiamine HCl (Vitamin B1 Tab) 100 mg PO DAILY [facility] Last Admin: 05/23/18 10:06 Dose: 100 mg Physical Exam - Constitutional Appears: Cachectic, Chronically Ill - Head Exam Head Exam: ATRAUMATIC, NORMOCEPHALIC - Eye Exam Eye Exam: absent: Scleral icterus Pupil Exam: NORMAL ACCOMODATION - ENT Exam ENT Exam: Mucous Membranes Dry - Neck Exam Neck exam: Negative for: Lymphadenopathy - Respiratory Exam Respiratory Exam: Decreased Breath Sounds - Cardiovascular Exam Cardiovascular Exam: REGULAR RHYTHM - GI/Abdominal Exam GI & Abdominal Exam: Diminished Bowel Sounds, Distended, Firm, Guarding, Hypoactive Bowel Sounds, Tenderness. absent: Organomegaly, Pulsatile Mass, Rebound, Rigid - Rectal Exam Rectal Exam: Deferred - Exam Exam: NORMAL INSPECTION - Extremities Exam Extremities exam: Negative for: pedal edema - Back Exam Back exam: absent: CVA tenderness (L), CVA tenderness (R) - Neurological Exam Neurological exam: Alert, CN II-XII Intact, Oriented x3, Reflexes Normal - Psychiatric Exam Psychiatric exam: Depressed - Skin Skin Exam: Dry Results - Vital Signs Recent Vital Signs: Last Vital Signs Temp 97.9 F 05/23/18 08:00 Pulse 97 H 05/23/18 08:00 Resp 15 05/23/18 08:00 BP 111/61 05/23/18 08:00 Pulse Ox 94 L 05/23/18 08:00 - Labs Result Diagrams: 05/23/18 06:17 05/23/18 06:17 Labs: Laboratory Results - last 24 hr 05/22/18 05/22/18 05/22/18 18:52 18:52 18:52 WBC 22.9 H D RBC 3.17 L Hgb 10.8 L Hct 31.6 L MCV 99.6 H D MCH 34.0 H MCHC 34.1 RDW 18.6 H Plt Count 45 L MPV 12.6 H Neut % (Auto) 91.6 H Lymph % (Auto) 4.6 L [place] % (Auto) 2.5 Eos % (Auto) 1.1 Baso % (Auto) 0.2 Neut # (Auto) 21.0 H Lymph # (Auto) 1.0 [place] # (Auto) 0.6 Eos # (Auto) 0.3 Baso # (Auto) 0.0 Neutrophils % (Manual) 50 Band Neutrophils % 40 H* Lymphocytes % (Manual) 5 L Monocytes % (Manual) 2 Eosinophils % (Manual) 2 Metamyelocytes % 1 H Toxic Granulation Present Platelet Estimate Decreased L Polychromasia Slight Hypochromasia (manual) Slight Poikilocytosis (manual Slight Anisocytosis (manual) Moderate Macrocytosis (manual) Slight Target Cells [place] Cells Slight Schistocytes Slight PT 38.2 H* INR 3.5 APTT 55 H pO2 VBG pH VBG pCO2 VBG HCO3 VBG Total CO2 VBG O2 Sat (Calc) VBG Base Excess VBG Potassium Glucose Lactate Crit Value Called To Crit Value Called By Crit Value Read Back Blood Gas Notified Time Sodium Potassium Chloride Carbon Dioxide Anion Gap BUN Creatinine Est GFR ( Amer) Est GFR (Non-Af Amer) Random Glucose Lactic Acid Calcium Phosphorus Magnesium Total Bilirubin AST ALT Alkaline Phosphatase Ammonia NT-Pro-B Natriuret Pep Total Protein Albumin Globulin Albumin/Globulin Ratio Lipase Alpha Fetoprotein Venous Blood Potassium Urine Color [place] Urine Clarity Hazy Urine pH 5.0 Ur Specific [place] 1.016 Urine Protein 1+ H Urine Glucose (UA) Normal Urine Ketones Negative Urine Blood 3+ H Urine Nitrate Negative Urine Bilirubin 1+ H Urine Urobilinogen 4.0 Ur Leukocyte Esterase 3+ H Urine WBC (Auto) 451 H Urine RBC (Auto) 228 H Ur Squamous Epith Cells 1 Urine Bacteria Many H Hyaline Casts 11-20 H Urine Yeast (Bud[place]) Occ H Urine Opiates Screen Urine Methadone Screen Ur Barbiturates Screen Ur Phencyclidine Scrn Ur Amphetamines Screen U Benzodiazepines Scrn U Oth Cocaine Metabols U Cannabinoids Screen Alcohol, Quantitative 05/22/18 05/22/18 05/22/18 18:52 18:52 19:00 WBC RBC Hgb Hct MCV MCH MCHC RDW Plt Count MPV Neut % (Auto) Lymph % (Auto) [place] % (Auto) Eos % (Auto) Baso % (Auto) Neut # (Auto) Lymph # (Auto) [place] # (Auto) Eos # (Auto) Baso # (Auto) Neutrophils % (Manual) Band Neutrophils % Lymphocytes % (Manual) Monocytes % (Manual) Eosinophils % (Manual) Metamyelocytes % Toxic Granulation Platelet Estimate Polychromasia Hypochromasia (manual) Poikilocytosis (manual Anisocytosis (manual) Macrocytosis (manual) Target Cells [place] Cells Schistocytes PT INR APTT pO2 VBG pH VBG pCO2 VBG HCO3 VBG Total CO2 VBG O2 Sat (Calc) VBG Base Excess VBG Potassium Glucose Lactate Crit Value Called To Crit Value Called By Crit Value Read Back Blood Gas Notified Time Sodium 137 Potassium 5.3 H Chloride 105 Carbon Dioxide 18 L Anion Gap 19 BUN 33 H Creatinine 2.6 H Est GFR ( Amer) 32 Est GFR (Non-Af Amer) 26 Random Glucose 108 Lactic Acid Calcium 8.7 Phosphorus Magnesium Total Bilirubin 18.7 H AST 114 H ALT 53 Alkaline Phosphatase 84 Ammonia 12 D NT-Pro-B Natriuret Pep Total Protein 6.3 Albumin 2.2 L Globulin 4.1 H Albumin/Globulin Ratio 0.5 L Lipase 611 H Alpha Fetoprotein Venous Blood Potassium Urine Color Urine Clarity Urine pH Ur Specific [place] Urine Protein Urine Glucose (UA) Urine Ketones Urine Blood Urine Nitrate Urine Bilirubin Urine Urobilinogen Ur Leukocyte Esterase Urine WBC (Auto) Urine RBC (Auto) Ur Squamous Epith Cells Urine Bacteria Hyaline Casts Urine Yeast ([place]) Urine Opiates Screen Positive H Urine Methadone Screen Negative Ur Barbiturates Screen Negative Ur Phencyclidine Scrn Negative Ur Amphetamines Screen Negative U Benzodiazepines Scrn Positive U Oth Cocaine Metabols Negative U Cannabinoids Screen Negative Alcohol, Quantitative < 10 05/22/18 05/23/18 05/23/18 19:40 00:23 06:17 WBC RBC Hgb Hct MCV MCH MCHC RDW Plt Count MPV Neut % (Auto) Lymph % (Auto) [place] % (Auto) Eos % (Auto) Baso % (Auto) Neut # (Auto) Lymph # (Auto) [place] # (Auto) Eos # (Auto) Baso # (Auto) Neutrophils % (Manual) Band Neutrophils % Lymphocytes % (Manual) Monocytes % (Manual) Eosinophils % (Manual) Metamyelocytes % Toxic Granulation Platelet Estimate Polychromasia Hypochromasia (manual) Poikilocytosis (manual Anisocytosis (manual) Macrocytosis (manual) Target Cells [place] Cells Schistocytes PT INR APTT pO2 42 VBG pH 7.29 L VBG pCO2 34 L VBG HCO3 16.9 VBG Total CO2 17.3 L VBG O2 Sat (Calc) 74.6 H VBG Base Excess -9.3 L VBG Potassium 4.8 Glucose 99 Lactate 6.1 H* Crit Value Called To Er nurse Crit Value Called By Courtney rt Crit Value Read Back Y Blood Gas Notified Time 1944 Sodium 134.0 Potassium Chloride 103.0 Carbon Dioxide Anion Gap BUN Creatinine Est GFR ( Amer) Est GFR (Non-Af Amer) Random Glucose Lactic Acid 3.3 H Calcium Phosphorus Magnesium Total Bilirubin AST ALT Alkaline Phosphatase Ammonia NT-Pro-B Natriuret Pep Total Protein Albumin Globulin Albumin/Globulin Ratio Lipase Alpha Fetoprotein 1.9 Venous Blood Potassium 4.8 Urine Color Urine Clarity Urine pH Ur Specific [place] Urine Protein Urine Glucose (UA) Urine Ketones Urine Blood Urine Nitrate Urine Bilirubin Urine Urobilinogen Ur Leukocyte Esterase Urine WBC (Auto) Urine RBC (Auto) Ur Squamous Epith Cells Urine Bacteria Hyaline Casts Urine Yeast (Budding) Urine Opiates Screen Urine Methadone Screen Ur Barbiturates Screen Ur Phencyclidine Scrn Ur Amphetamines Screen U Benzodiazepines Scrn U Oth Cocaine Metabols U Cannabinoids Screen Alcohol, Quantitative 05/23/18 05/23/18 05/23/18 06:17 06:17 06:17 WBC 11.5 H RBC 2.45 L Hgb 8.4 L D Hct 24.0 L MCV 98.0 H MCH 34.4 H MCHC 35.1 RDW 18.0 H Plt Count 35 L MPV 12.3 H Neut % (Auto) 83.3 H Lymph % (Auto) 8.1 L [place] % (Auto) 4.4 Eos % (Auto) 3.9 Baso % (Auto) 0.3 Neut # (Auto) 9.6 H Lymph # (Auto) 0.9 L [place] # (Auto) 0.5 Eos # (Auto) 0.4 Baso # (Auto) 0.0 Neutrophils % (Manual) 73 Band Neutrophils % 19 H* Lymphocytes % (Manual) TEST NOT PERFORMED Monocytes % (Manual) 5 Eosinophils % (Manual) 3 Metamyelocytes % Toxic Granulation Platelet Estimate Decreased L Polychromasia Hypochromasia (manual) Slight Poikilocytosis (manual Slight Anisocytosis (manual) Slight Macrocytosis (manual) Target Cells Slight [place] Cells Schistocytes PT 41.2 H* INR 3.8 APTT 65 H D pO2 VBG pH VBG pCO2 VBG HCO3 VBG Total CO2 VBG O2 Sat (Calc) VBG Base Excess VBG Potassium Glucose Lactate Crit Value Called To Crit Value Called By Crit Value Read Back Blood Gas Notified Time Sodium Potassium Chloride Carbon Dioxide Anion Gap BUN Creatinine Est GFR ( Amer) Est GFR (Non-Af Amer) Random Glucose Lactic Acid 2.1 Calcium Phosphorus Magnesium Total Bilirubin AST ALT Alkaline Phosphatase Ammonia NT-Pro-B Natriuret Pep Total Protein Albumin Globulin Albumin/Globulin Ratio Lipase Alpha Fetoprotein Venous Blood Potassium Urine Color Urine Clarity Urine pH Ur Specific [place] Urine Protein Urine Glucose (UA) Urine Ketones Urine Blood Urine Nitrate Urine Bilirubin Urine Urobilinogen Ur Leukocyte Esterase Urine WBC (Auto) Urine RBC (Auto) Ur Squamous Epith Cells Urine Bacteria Hyaline Casts Urine Yeast (Budding) Urine Opiates Screen Urine Methadone Screen Ur Barbiturates Screen Ur Phencyclidine Scrn Ur Amphetamines Screen U Benzodiazepines Scrn U Oth Cocaine Metabols U Cannabinoids Screen Alcohol, Quantitative 05/23/18 05/23/18 06:17 06:17 WBC RBC Hgb Hct MCV MCH MCHC RDW Plt Count MPV Neut % (Auto) Lymph % (Auto) [place] % (Auto) Eos % (Auto) Baso % (Auto) Neut # (Auto) Lymph # (Auto) [place] # (Auto) Eos # (Auto) Baso # (Auto) Neutrophils % (Manual) Band Neutrophils % Lymphocytes % (Manual) Monocytes % (Manual) Eosinophils % (Manual) Metamyelocytes % Toxic Granulation Platelet Estimate Polychromasia Hypochromasia (manual) Poikilocytosis (manual Anisocytosis (manual) Macrocytosis (manual) Target Cells [place] Cells Schistocytes PT INR APTT pO2 VBG pH VBG pCO2 VBG HCO3 VBG Total CO2 VBG O2 Sat (Calc) VBG Base Excess VBG Potassium Glucose Lactate Crit Value Called To Crit Value Called By Crit Value Read Back Blood Gas Notified Time Sodium 138 Potassium 4.1 Chloride 107 Carbon Dioxide 21 L Anion Gap 14 BUN 38 H Creatinine 2.0 H Est GFR ( Amer) 43 Est GFR (Non-Af Amer) 36 Random Glucose 65 L Lactic Acid Calcium 7.4 L Phosphorus 4.9 H Magnesium 1.3 L Total Bilirubin 15.8 H AST 73 H D ALT 48 Alkaline Phosphatase 63 Ammonia 25 D NT-Pro-B Natriuret Pep 1580 H Total Protein 5.2 L Albumin 1.7 L D Globulin 3.5 Albumin/Globulin Ratio 0.5 L Lipase Alpha Fetoprotein Venous Blood Potassium Urine Color Urine Clarity Urine pH Ur Specific [place] Urine Protein Urine Glucose (UA) Urine Ketones Urine Blood Urine Nitrate Urine Bilirubin Urine Urobilinogen Ur Leukocyte Esterase Urine WBC (Auto) Urine RBC (Auto) Ur Squamous Epith Cells Urine Bacteria Hyaline Casts Urine Yeast (Budding) Urine Opiates Screen Urine Methadone Screen Ur Barbiturates Screen Ur Phencyclidine Scrn Ur Amphetamines Screen U Benzodiazepines Scrn U Oth Cocaine Metabols U Cannabinoids Screen Alcohol, Quantitative Assessment & Plan (1) Colitis Status: Acute (2) Renal stone Status: Acute (3) Severe sepsis Status: Acute (4) UTI (urinary tract infection) Status: Acute (5) Abdominal pain Status: Acute - Assessment and Plan (Free Text) Assessment: abd pain in setting of cirrhosis - recc imaging , GI eval, consider abdominal paracentesis check stool for c diff Cont empiric IV antibiotics
--- NOTE | 2018-05-23 11:22 | RAD ---
Date of service: 05/22/2018 HISTORY: r/o PNA COMPARISON: 04/26/2018 FINDINGS: LUNGS: Multifocal infiltrates similar in degree in distribution compared to the prior study. PLEURA: No significant pleural effusion identified, no pneumothorax apparent. CARDIOVASCULAR: No radiographic findings to suggest acute or significant cardiovascular disease. OSSEOUS STRUCTURES: No significant abnormalities. VISUALIZED UPPER ABDOMEN: Normal. OTHER FINDINGS: None. IMPRESSION: Multifocal infiltrates lower lobe distribution primarily similar findings identified previously.
--- NOTE | 2018-05-23 11:35 | US ---
Date of service: 05/23/2018 HISTORY: eval ascities COMPARISON: Comparison is made to the previous CT of the abdomen dated 05/22/2018 TECHNIQUE: Sonographic evaluation of the abdomen. FINDINGS: LIVER: Measures 15.8 cm. Heterogeneous increase and nodular echogenicity of the liver parenchyma. No mass. No intrahepatic bile duct dilatation. GALLBLADDER: There is a sludge in the gallbladder noted. There is a diffuse urinary bladder wall thickening measures up to 4 millimeter. COMMON BILE DUCT: Measures 9 mm. No stones. No dilatation. PANCREAS: Unremarkable as visualized. No mass. No ductal dilatation. RIGHT KIDNEY: Measures 12.3 x 5.8 x 5.8cm. Normal echogenicity. No calculus, mass, or hydronephrosis. LEFT KIDNEY: Measures 13.7 x 5.4 x 5.1cm. There is stone noted at the proximal left ureter measures 2.2 centimeter. There is also stone noted and the lower pole of the kidney measures 1.02 centimeter. SPLEEN: The spleen is enlarged measures 18.5 centimeter. AORTA: No aneurysmal dilatation. IVC: Unremarkable. OTHER FINDINGS: There is moderate amount of free fluid in the abdomen. IMPRESSION: Moderate ascites. Cirrhotic manifestation of the liver. The portal vein is patent. Splenomegaly. Gallbladder sludge and mild diffuse gallbladder wall thickening. Left renal nonobstructing stone and proximal left ureteral stone.
--- NOTE | 2018-05-23 11:37 | CP.CCUPN ---
CCU Subjective - Physician Review Events Since Last Encounter (Free Text): Ricardo Mcmillan DO PGY-1, ICU progress note for Dr. Larios Subjective (Free Text): Ricardo Mcmillan DO PGY-1, ICU progress note for Dr. Larios Pt was seen and examined at bedside. Pt complains of abdominal pain. Pt is also asking for his maintenance methadone. Pt denies headache, dizziness, chest pain , shortness of breath, n/v/d, paresthesias. A 12-point ROS was reviewed and is otherwise unremarkable. CCU Objective - Vital Signs / Intake & Output Vital Signs (Last 4 hours): Vital Signs Temp Pulse Resp BP Pulse Ox 05/23/18 11:00 92 H 16 95/49 L 98 05/23/18 10:00 97 H 16 97/56 L 98 05/23/18 09:00 101 H 16 98/48 L 100 05/23/18 08:00 97.9 F 97 H 15 111/61 94 L Intake and Output (Last 8hrs): Intake & Output 05/22/18 05/23/18 05/23/18 22:59 06:59 14:59 Intake Total 800 300 Output Total 375 300 300 Balance -375 500 0 Weight 58.967 kg 59.511 kg Intake: Intake, IV Amount 700 300 Left Forearm 100 Right Forearm 700 200 Oral 100 Output: Drainage 375 Urine 300 300 Urine, Voided 300 300 Other: Voiding Method Urinal - Physical Exam Head: Positive for: Atraumatic, Normocephalic Pupils: Positive for: PERRL Extroacular Muscles: Positive for: EOMI Conjunctiva: Positive for: Normal Mouth: Positive for: Moist Mucous Membranes Neck: Positive for: Normal Range of Motion Respiratory/Chest: Positive for: Clear to Auscultation, Good Air Exchange. Negative for: Respiratory Distress, Accessory Muscle Use Cardiovascular: Positive for: Regular Rate and Rhythm, Normal S1, S2 Abdomen: Positive for: Tenderness (diffuse abdominal tenderness), Normal Bowel Sounds, Other ((+) ascites; (+) moderate left CVA tenderness) Upper Extremity: Positive for: Normal Inspection Lower Extremity: Positive for: Normal Inspection Neurological: Positive for: GCS=15 Skin: Positive for: Warm, Dry, Normal Color Psychiatric: Positive for: Alert, Oriented x 3 - Medications Active Medications: Active Medications Generic Name Dose Route Start Last Admin Trade Name Violetta PRN Reason Stop Dose Admin Folic Acid 1 mg 05/23/18 10:00 05/23/18 10:06 Folic Acid PO 1 mg DAILY ROBYN Administration Gabapentin 300 mg 05/23/18 10:00 05/23/18 10:07 Neurontin PO 300 mg BID ROBYN Administration Meropenem 1 gm/ Sodium 100 mls @ 100 mls/hr 05/23/18 09:00 05/23/18 08:13 Chloride IVPB 100 mls/hr Q8H ROBYN Administration Albumin Human 100 mls @ 200 mls/hr 05/23/18 10:00 05/23/18 10:05 Albumin Human 25% (12.5 Gm/50 Ml) IV 200 mls/hr DAILY ROBYN Administration Albumin Human 100 mls @ 200 mls/hr 05/23/18 10:00 05/23/18 11:18 Albumin Human 25% (12.5 Gm/50 Ml) IV 200 mls/hr DAILY ROBYN Administration Sodium Chloride 1,000 mls @ 100 mls/hr 05/23/18 09:30 05/23/18 10:04 Sodium Chloride 0.9% IV 100 mls/hr .Q10H ROBYN Administration Dextrose 1,000 mls @ 30 mls/hr 05/23/18 12:00 Dextrose 10% In Water IV .Q24H ROBYN Metronidazole 500 mg in 100 mls @ 100 mls/hr 05/23/18 11:30 Flagyl IVPB Q8H ROBYN Protocol Lactulose 30 gm 05/23/18 10:00 05/23/18 10:06 Enulose PO 30 gm TID ROBYN Administration Lorazepam 1 mg 05/23/18 14:00 Ativan PO TID ROBYN Methadone HCl 10 mg 05/23/18 12:00 Methadone PO 05/23/18 12:01 ONCE ONE Midodrine 7.5 mg 05/23/18 10:00 05/23/18 10:06 Proamatine PO 7.5 mg TID ROBYN Administration Octreotide Acetate 200 mcg 05/23/18 08:00 05/23/18 08:13 Sandostatin SC 200 mcg Q8H ROBYN Administration Pantoprazole Sodium 40 mg 05/23/18 10:00 05/23/18 10:08 Protonix Inj IVP 40 mg Q12H ROBYN Administration Phytonadione 10 mg 05/23/18 10:00 08/13/18 10:10 Vitamin K Tab PO 05/26/18 10:01 10 mg DAILY ROBYN Administration Thiamine HCl 100 mg 05/23/18 10:00 05/23/18 10:06 Vitamin B1 Tab PO 100 mg DAILY ROBYN Administration - Patient Studies Lab Studies: Microbiology Studies 05/22/18 18:52 Urine Culture - Final Urine,Clean Catch No Growth (<1,000 CFU/ML) Lab Studies 05/23/18 05/23/18 05/23/18 Range/Units 06:17 06:17 06:17 WBC (4.8-10.8) K/uL RBC (4.40-5.90) Mil/uL Hgb (12.0-18.0) g/dL Hct (35.0-51.0) % MCV (80.0-94.0) fL MCH (27.0-31.0) pg MCHC (33.0-37.0) g/dL RDW (11.5-14.5) % Plt Count (130-400) K/uL MPV (7.2-11.7) fL Neut % (Auto) (50.0-75.0) % Lymph % (Auto) (20.0-40.0) % Saline % (Auto) (0.0-10.0) % Eos % (Auto) (0.0-4.0) % Baso % (Auto) (0.0-2.0) % Neut # (Auto) (1.8-7.0) K/uL Lymph # (Auto) (1.0-4.3) K/uL Saline # (Auto) (0.0-0.8) K/uL Eos # (Auto) (0.0-0.7) K/uL Baso # (Auto) (0.0-0.2) K/uL Neutrophils % (Manual) (50-75) % Band Neutrophils % (0-2) % Lymphocytes % (Manual) (20-40) % Monocytes % (Manual) (0-10) % Eosinophils % (Manual) (0-4) % Metamyelocytes % (0-0) % Toxic Granulation Platelet Estimate (NORMAL) Polychromasia Hypochromasia (manual) Poikilocytosis (manual Anisocytosis (manual) Macrocytosis (manual) Target Cells Brandy Cells Schistocytes PT 41.2 H* (9.7-12.2) SECONDS INR 3.8 APTT 65 H D (21-34) SECONDS pO2 (30-55) mm/Hg VBG pH (7.32-7.43) VBG pCO2 (40-60) mmHg VBG HCO3 mmol/L VBG Total CO2 (22-28) mmol/L VBG O2 Sat (Calc) (40-65) % VBG Base Excess (0.0-2.0) mmol/L VBG Potassium (3.6-5.2) mmol/L Glucose (75-110) mg/dl Lactate (0.7-2.1) mmol/L Crit Value Called To Crit Value Called By Crit Value Read Back Blood Gas Notified Time Sodium 138 (132-148) mmol/L Potassium 4.1 (3.6-5.2) mmol/L Chloride 107 (98-107) mmol/L Carbon Dioxide 21 L (22-30) mmol/L Anion Gap 14 (10-20) BUN 38 H (9-20) mg/dL Creatinine 2.0 H (0.8-1.5) mg/dL Est GFR ( Amer) 43 Est GFR (Non-Af Amer) 36 Random Glucose 65 L (75-110) mg/dL Lactic Acid (0.7-2.1) mmol/L Calcium 7.4 L (8.6-10.4) mg/dl Phosphorus 4.9 H (2.5-4.5) mg/dL Magnesium 1.3 L (1.6-2.3) mg/dL Total Bilirubin 15.8 H (0.2-1.3) mg/dL AST 73 H D (17-59) U/L ALT 48 (21-72) U/L Alkaline Phosphatase 63 (38-126) U/L Ammonia 25 D (9-33) umol/L NT-Pro-B Natriuret Pep 1580 H (0-450) pg/mL Total Protein 5.2 L (6.3-8.3) g/dL Albumin 1.7 L D (3.5-5.0) g/dL Globulin 3.5 (2.2-3.9) gm/dL Albumin/Globulin Ratio 0.5 L (1.0-2.1) Lipase (23-300) U/L Alpha Fetoprotein (0.0-7.5) ng/mL Venous Blood Potassium (3.6-5.2) mmol/L Urine Color (YELLOW) Urine Clarity (Clear) Urine pH (5.0-8.0) Ur Specific [place] (1.003-1.030) Urine Protein (NEGATIVE) mg/dL Urine Glucose (UA) (Normal) mg/dL Urine Ketones (NEGATIVE) mg/dL Urine Blood (NEGATIVE) Urine Nitrate (NEGATIVE) Urine Bilirubin (NEGATIVE) Urine Urobilinogen (0.2-1.0) mg/dL Ur Leukocyte Esterase (Negative) Nancy/uL Urine WBC (Auto) (0-5) /hpf Urine RBC (Auto) (0-3) /hpf Ur Squamous Epith Cells (0-5) /hpf Urine Bacteria (<OCC) Hyaline Casts (0-2) /lpf Urine Yeast (Budding) (NEGATIVE) /hpf Urine Opiates Screen (NEGATIVE) Urine Methadone Screen (NEGATIVE) Ur Barbiturates Screen (NEGATIVE) Ur Phencyclidine Scrn (NEGATIVE) Ur Amphetamines Screen (NEGATIVE) U Benzodiazepines Scrn (NEGATIVE) U Oth Cocaine Metabols (NEGATIVE) U Cannabinoids Screen (NEGATIVE) Alcohol, Quantitative (0-10) mg/dl 05/23/18 05/23/18 05/23/18 Range/Units 06:17 06:17 06:17 WBC 11.5 H (4.8-10.8) K/uL RBC 2.45 L (4.40-5.90) Mil/uL Hgb 8.4 L D (12.0-18.0) g/dL Hct 24.0 L (35.0-51.0) % MCV 98.0 H (80.0-94.0) fL MCH 34.4 H (27.0-31.0) pg MCHC 35.1 (33.0-37.0) g/dL RDW 18.0 H (11.5-14.5) % Plt Count 35 L (130-400) K/uL MPV 12.3 H (7.2-11.7) fL Neut % (Auto) 83.3 H (50.0-75.0) % Lymph % (Auto) 8.1 L (20.0-40.0) % Saline % (Auto) 4.4 (0.0-10.0) % Eos % (Auto) 3.9 (0.0-4.0) % Baso % (Auto) 0.3 (0.0-2.0) % Neut # (Auto) 9.6 H (1.8-7.0) K/uL Lymph # (Auto) 0.9 L (1.0-4.3) K/uL Saline # (Auto) 0.5 (0.0-0.8) K/uL Eos # (Auto) 0.4 (0.0-0.7) K/uL Baso # (Auto) 0.0 (0.0-0.2) K/uL Neutrophils % (Manual) 73 (50-75) % Band Neutrophils % 19 H* (0-2) % Lymphocytes % (Manual) TEST NOT PERFORMED (20-40) % Monocytes % (Manual) 5 (0-10) % Eosinophils % (Manual) 3 (0-4) % Metamyelocytes % (0-0) % Toxic Granulation Platelet Estimate Decreased L (NORMAL) Polychromasia Hypochromasia (manual) Slight Poikilocytosis (manual Slight Anisocytosis (manual) Slight Macrocytosis (manual) Target Cells Slight Brandy Cells Schistocytes PT (9.7-12.2) SECONDS INR APTT (21-34) SECONDS pO2 (30-55) mm/Hg VBG pH (7.32-7.43) VBG pCO2 (40-60) mmHg VBG HCO3 mmol/L VBG Total CO2 (22-28) mmol/L VBG O2 Sat (Calc) (40-65) % VBG Base Excess (0.0-2.0) mmol/L VBG Potassium (3.6-5.2) mmol/L Glucose (75-110) mg/dl Lactate (0.7-2.1) mmol/L Crit Value Called To Crit Value Called By Crit Value Read Back Blood Gas Notified Time Sodium (132-148) mmol/L Potassium (3.6-5.2) mmol/L Chloride (98-107) mmol/L Carbon Dioxide (22-30) mmol/L Anion Gap (10-20) BUN (9-20) mg/dL Creatinine (0.8-1.5) mg/dL Est GFR ( Amer) Est GFR (Non-Af Amer) Random Glucose (75-110) mg/dL Lactic Acid 2.1 (0.7-2.1) mmol/L Calcium (8.6-10.4) mg/dl Phosphorus (2.5-4.5) mg/dL Magnesium (1.6-2.3) mg/dL Total Bilirubin (0.2-1.3) mg/dL AST (17-59) U/L ALT (21-72) U/L Alkaline Phosphatase (38-126) U/L Ammonia (9-33) umol/L NT-Pro-B Natriuret Pep (0-450) pg/mL Total Protein (6.3-8.3) g/dL Albumin (3.5-5.0) g/dL Globulin (2.2-3.9) gm/dL Albumin/Globulin Ratio (1.0-2.1) Lipase (23-300) U/L Alpha Fetoprotein 1.9 (0.0-7.5) ng/mL Venous Blood Potassium (3.6-5.2) mmol/L Urine Color (YELLOW) Urine Clarity (Clear) Urine pH (5.0-8.0) Ur Specific [place] (1.003-1.030) Urine Protein (NEGATIVE) mg/dL Urine Glucose (UA) (Normal) mg/dL Urine Ketones (NEGATIVE) mg/dL Urine Blood (NEGATIVE) Urine Nitrate (NEGATIVE) Urine Bilirubin (NEGATIVE) Urine Urobilinogen (0.2-1.0) mg/dL Ur Leukocyte Esterase (Negative) Nancy/uL Urine WBC (Auto) (0-5) /hpf Urine RBC (Auto) (0-3) /hpf Ur Squamous Epith Cells (0-5) /hpf Urine Bacteria (<OCC) Hyaline Casts (0-2) /lpf Urine Yeast (Budding) (NEGATIVE) /hpf Urine Opiates Screen (NEGATIVE) Urine Methadone Screen (NEGATIVE) Ur Barbiturates Screen (NEGATIVE) Ur Phencyclidine Scrn (NEGATIVE) Ur Amphetamines Screen (NEGATIVE) U Benzodiazepines Scrn (NEGATIVE) U Oth Cocaine Metabols (NEGATIVE) U Cannabinoids Screen (NEGATIVE) Alcohol, Quantitative (0-10) mg/dl 05/23/18 05/22/18 05/22/18 Range/Units 00:23 19:40 19:00 WBC (4.8-10.8) K/uL RBC (4.40-5.90) Mil/uL Hgb (12.0-18.0) g/dL Hct (35.0-51.0) % MCV (80.0-94.0) fL MCH (27.0-31.0) pg MCHC (33.0-37.0) g/dL RDW (11.5-14.5) % Plt Count (130-400) K/uL MPV (7.2-11.7) fL Neut % (Auto) (50.0-75.0) % Lymph % (Auto) (20.0-40.0) % Saline % (Auto) (0.0-10.0) % Eos % (Auto) (0.0-4.0) % Baso % (Auto) (0.0-2.0) % Neut # (Auto) (1.8-7.0) K/uL Lymph # (Auto) (1.0-4.3) K/uL Saline # (Auto) (0.0-0.8) K/uL Eos # (Auto) (0.0-0.7) K/uL Baso # (Auto) (0.0-0.2) K/uL Neutrophils % (Manual) (50-75) % Band Neutrophils % (0-2) % Lymphocytes % (Manual) (20-40) % Monocytes % (Manual) (0-10) % Eosinophils % (Manual) (0-4) % Metamyelocytes % (0-0) % Toxic Granulation Platelet Estimate (NORMAL) Polychromasia Hypochromasia (manual) Poikilocytosis (manual Anisocytosis (manual) Macrocytosis (manual) Target Cells [place] Cells Schistocytes PT (9.7-12.2) SECONDS INR APTT (21-34) SECONDS pO2 42 (30-55) mm/Hg VBG pH 7.29 L (7.32-7.43) VBG pCO2 34 L (40-60) mmHg VBG HCO3 16.9 mmol/L VBG Total CO2 17.3 L (22-28) mmol/L VBG O2 Sat (Calc) 74.6 H (40-65) % VBG Base Excess -9.3 L (0.0-2.0) mmol/L VBG Potassium 4.8 (3.6-5.2) mmol/L Glucose 99 (75-110) mg/dl Lactate 6.1 H* (0.7-2.1) mmol/L Crit Value Called To Er nurse Crit Value Called By Courtney rt Crit Value Read Back Y Blood Gas Notified Time 1944 Sodium 134.0 (132-148) mmol/L Potassium (3.6-5.2) mmol/L Chloride 103.0 (98-107) mmol/L Carbon Dioxide (22-30) mmol/L Anion Gap (10-20) BUN (9-20) mg/dL Creatinine (0.8-1.5) mg/dL Est GFR ( Amer) Est GFR (Non-Af Amer) Random Glucose (75-110) mg/dL Lactic Acid 3.3 H (0.7-2.1) mmol/L Calcium (8.6-10.4) mg/dl Phosphorus (2.5-4.5) mg/dL Magnesium (1.6-2.3) mg/dL Total Bilirubin (0.2-1.3) mg/dL AST (17-59) U/L ALT (21-72) U/L Alkaline Phosphatase (38-126) U/L Ammonia 12 D (9-33) umol/L NT-Pro-B Natriuret Pep (0-450) pg/mL Total Protein (6.3-8.3) g/dL Albumin (3.5-5.0) g/dL Globulin (2.2-3.9) gm/dL Albumin/Globulin Ratio (1.0-2.1) Lipase (23-300) U/L Alpha Fetoprotein (0.0-7.5) ng/mL Venous Blood Potassium 4.8 (3.6-5.2) mmol/L Urine Color (YELLOW) Urine Clarity (Clear) Urine pH (5.0-8.0) Ur Specific [place] (1.003-1.030) Urine Protein (NEGATIVE) mg/dL Urine Glucose (UA) (Normal) mg/dL Urine Ketones (NEGATIVE) mg/dL Urine Blood (NEGATIVE) Urine Nitrate (NEGATIVE) Urine Bilirubin (NEGATIVE) Urine Urobilinogen (0.2-1.0) mg/dL Ur Leukocyte Esterase (Negative) Nancy/uL Urine WBC (Auto) (0-5) /hpf Urine RBC (Auto) (0-3) /hpf Ur Squamous Epith Cells (0-5) /hpf Urine Bacteria (<OCC) Hyaline Casts (0-2) /lpf Urine Yeast (Budding) (NEGATIVE) /hpf Urine Opiates Screen (NEGATIVE) Urine Methadone Screen (NEGATIVE) Ur Barbiturates Screen (NEGATIVE) Ur Phencyclidine Scrn (NEGATIVE) Ur Amphetamines Screen (NEGATIVE) U Benzodiazepines Scrn (NEGATIVE) U Oth Cocaine Metabols (NEGATIVE) U Cannabinoids Screen (NEGATIVE) Alcohol, Quantitative (0-10) mg/dl 05/22/18 05/22/18 05/22/18 Range/Units 18:52 18:52 18:52 WBC (4.8-10.8) K/uL RBC (4.40-5.90) Mil/uL Hgb (12.0-18.0) g/dL Hct (35.0-51.0) % MCV (80.0-94.0) fL MCH (27.0-31.0) pg MCHC (33.0-37.0) g/dL RDW (11.5-14.5) % Plt Count (130-400) K/uL MPV (7.2-11.7) fL Neut % (Auto) (50.0-75.0) % Lymph % (Auto) (20.0-40.0) % Saline % (Auto) (0.0-10.0) % Eos % (Auto) (0.0-4.0) % Baso % (Auto) (0.0-2.0) % Neut # (Auto) (1.8-7.0) K/uL Lymph # (Auto) (1.0-4.3) K/uL Saline # (Auto) (0.0-0.8) K/uL Eos # (Auto) (0.0-0.7) K/uL Baso # (Auto) (0.0-0.2) K/uL Neutrophils % (Manual) (50-75) % Band Neutrophils % (0-2) % Lymphocytes % (Manual) (20-40) % Monocytes % (Manual) (0-10) % Eosinophils % (Manual) (0-4) % Metamyelocytes % (0-0) % Toxic Granulation Platelet Estimate (NORMAL) Polychromasia Hypochromasia (manual) Poikilocytosis (manual Anisocytosis (manual) Macrocytosis (manual) Target Cells Brandy Cells Schistocytes PT (9.7-12.2) SECONDS INR APTT (21-34) SECONDS pO2 (30-55) mm/Hg VBG pH (7.32-7.43) VBG pCO2 (40-60) mmHg VBG HCO3 mmol/L VBG Total CO2 (22-28) mmol/L VBG O2 Sat (Calc) (40-65) % VBG Base Excess (0.0-2.0) mmol/L VBG Potassium (3.6-5.2) mmol/L Glucose (75-110) mg/dl Lactate (0.7-2.1) mmol/L Crit Value Called To Crit Value Called By Crit Value Read Back Blood Gas Notified Time Sodium 137 (132-148) mmol/L Potassium 5.3 H (3.6-5.2) mmol/L Chloride 105 (98-107) mmol/L Carbon Dioxide 18 L (22-30) mmol/L Anion Gap 19 (10-20) BUN 33 H (9-20) mg/dL Creatinine 2.6 H (0.8-1.5) mg/dL Est GFR ( Amer) 32 Est GFR (Non-Af Amer) 26 Random Glucose 108 (75-110) mg/dL Lactic Acid (0.7-2.1) mmol/L Calcium 8.7 (8.6-10.4) mg/dl Phosphorus (2.5-4.5) mg/dL Magnesium (1.6-2.3) mg/dL Total Bilirubin 18.7 H (0.2-1.3) mg/dL AST 114 H (17-59) U/L ALT 53 (21-72) U/L Alkaline Phosphatase 84 (38-126) U/L Ammonia (9-33) umol/L NT-Pro-B Natriuret Pep (0-450) pg/mL Total Protein 6.3 (6.3-8.3) g/dL Albumin 2.2 L (3.5-5.0) g/dL Globulin 4.1 H (2.2-3.9) gm/dL Albumin/Globulin Ratio 0.5 L (1.0-2.1) Lipase 611 H (23-300) U/L Alpha Fetoprotein (0.0-7.5) ng/mL Venous Blood Potassium (3.6-5.2) mmol/L Urine Color [place] (YELLOW) Urine Clarity Hazy (Clear) Urine pH 5.0 (5.0-8.0) Ur Specific [place] 1.016 (1.003-1.030) Urine Protein 1+ H (NEGATIVE) mg/dL Urine Glucose (UA) Normal (Normal) mg/dL Urine Ketones Negative (NEGATIVE) mg/dL Urine Blood 3+ H (NEGATIVE) Urine Nitrate Negative (NEGATIVE) Urine Bilirubin 1+ H (NEGATIVE) Urine Urobilinogen 4.0 (0.2-1.0) mg/dL Ur Leukocyte Esterase 3+ H (Negative) Nancy/uL Urine WBC (Auto) 451 H (0-5) /hpf Urine RBC (Auto) 228 H (0-3) /hpf Ur Squamous Epith Cells 1 (0-5) /hpf Urine Bacteria Many H (<OCC) Hyaline Casts 11-20 H (0-2) /lpf Urine Yeast (Budding) Occ H (NEGATIVE) /hpf Urine Opiates Screen Positive H (NEGATIVE) Urine Methadone Screen Negative (NEGATIVE) Ur Barbiturates Screen Negative (NEGATIVE) Ur Phencyclidine Scrn Negative (NEGATIVE) Ur Amphetamines Screen Negative (NEGATIVE) U Benzodiazepines Scrn Positive (NEGATIVE) U Oth Cocaine Metabols Negative (NEGATIVE) U Cannabinoids Screen Negative (NEGATIVE) Alcohol, Quantitative < 10 (0-10) mg/dl 05/22/18 05/22/18 Range/Units 18:52 18:52 WBC 22.9 H D (4.8-10.8) K/uL RBC 3.17 L (4.40-5.90) Mil/uL Hgb 10.8 L (12.0-18.0) g/dL Hct 31.6 L (35.0-51.0) % MCV 99.6 H D (80.0-94.0) fL MCH 34.0 H (27.0-31.0) pg MCHC 34.1 (33.0-37.0) g/dL RDW 18.6 H (11.5-14.5) % Plt Count 45 L (130-400) K/uL MPV 12.6 H (7.2-11.7) fL Neut % (Auto) 91.6 H (50.0-75.0) % Lymph % (Auto) 4.6 L (20.0-40.0) % Saline % (Auto) 2.5 (0.0-10.0) % Eos % (Auto) 1.1 (0.0-4.0) % Baso % (Auto) 0.2 (0.0-2.0) % Neut # (Auto) 21.0 H (1.8-7.0) K/uL Lymph # (Auto) 1.0 (1.0-4.3) K/uL Saline # (Auto) 0.6 (0.0-0.8) K/uL Eos # (Auto) 0.3 (0.0-0.7) K/uL Baso # (Auto) 0.0 (0.0-0.2) K/uL Neutrophils % (Manual) 50 (50-75) % Band Neutrophils % 40 H* (0-2) % Lymphocytes % (Manual) 5 L (20-40) % Monocytes % (Manual) 2 (0-10) % Eosinophils % (Manual) 2 (0-4) % Metamyelocytes % 1 H (0-0) % Toxic Granulation Present Platelet Estimate Decreased L (NORMAL) Polychromasia Slight Hypochromasia (manual) Slight Poikilocytosis (manual Slight Anisocytosis (manual) Moderate Macrocytosis (manual) Slight Target Cells Brandy Cells Slight Schistocytes Slight PT 38.2 H* (9.7-12.2) SECONDS INR 3.5 APTT 55 H (21-34) SECONDS pO2 (30-55) mm/Hg VBG pH (7.32-7.43) VBG pCO2 (40-60) mmHg VBG HCO3 mmol/L VBG Total CO2 (22-28) mmol/L VBG O2 Sat (Calc) (40-65) % VBG Base Excess (0.0-2.0) mmol/L VBG Potassium (3.6-5.2) mmol/L Glucose (75-110) mg/dl Lactate (0.7-2.1) mmol/L Crit Value Called To Crit Value Called By Crit Value Read Back Blood Gas Notified Time Sodium (132-148) mmol/L Potassium (3.6-5.2) mmol/L Chloride (98-107) mmol/L Carbon Dioxide (22-30) mmol/L Anion Gap (10-20) BUN (9-20) mg/dL Creatinine (0.8-1.5) mg/dL Est GFR ( Amer) Est GFR (Non-Af Amer) Random Glucose (75-110) mg/dL Lactic Acid (0.7-2.1) mmol/L Calcium (8.6-10.4) mg/dl Phosphorus (2.5-4.5) mg/dL Magnesium (1.6-2.3) mg/dL Total Bilirubin (0.2-1.3) mg/dL AST (17-59) U/L ALT (21-72) U/L Alkaline Phosphatase (38-126) U/L Ammonia (9-33) umol/L NT-Pro-B Natriuret Pep (0-450) pg/mL Total Protein (6.3-8.3) g/dL Albumin (3.5-5.0) g/dL Globulin (2.2-3.9) gm/dL Albumin/Globulin Ratio (1.0-2.1) Lipase (23-300) U/L Alpha Fetoprotein (0.0-7.5) ng/mL Venous Blood Potassium (3.6-5.2) mmol/L Urine Color (YELLOW) Urine Clarity (Clear) Urine pH (5.0-8.0) Ur Specific [place] (1.003-1.030) Urine Protein (NEGATIVE) mg/dL Urine Glucose (UA) (Normal) mg/dL Urine Ketones (NEGATIVE) mg/dL Urine Blood (NEGATIVE) Urine Nitrate (NEGATIVE) Urine Bilirubin (NEGATIVE) Urine Urobilinogen (0.2-1.0) mg/dL Ur Leukocyte Esterase (Negative) Nancy/uL Urine WBC (Auto) (0-5) /hpf Urine RBC (Auto) (0-3) /hpf Ur Squamous Epith Cells (0-5) /hpf Urine Bacteria (<OCC) Hyaline Casts (0-2) /lpf Urine Yeast (Budding) (NEGATIVE) /hpf Urine Opiates Screen (NEGATIVE) Urine Methadone Screen (NEGATIVE) Ur Barbiturates Screen (NEGATIVE) Ur Phencyclidine Scrn (NEGATIVE) Ur Amphetamines Screen (NEGATIVE) U Benzodiazepines Scrn (NEGATIVE) U Oth Cocaine Metabols (NEGATIVE) U Cannabinoids Screen (NEGATIVE) Alcohol, Quantitative (0-10) mg/dl Laboratory Results - last 24 hr 05/22/18 05/22/18 05/22/18 18:52 18:52 18:52 WBC 22.9 H D RBC 3.17 L Hgb 10.8 L Hct 31.6 L MCV 99.6 H D MCH 34.0 H MCHC 34.1 RDW 18.6 H Plt Count 45 L MPV 12.6 H Neut % (Auto) 91.6 H Lymph % (Auto) 4.6 L Saline % (Auto) 2.5 Eos % (Auto) 1.1 Baso % (Auto) 0.2 Neut # (Auto) 21.0 H Lymph # (Auto) 1.0 Saline # (Auto) 0.6 Eos # (Auto) 0.3 Baso # (Auto) 0.0 Neutrophils % (Manual) 50 Band Neutrophils % 40 H* Lymphocytes % (Manual) 5 L Monocytes % (Manual) 2 Eosinophils % (Manual) 2 Metamyelocytes % 1 H Toxic Granulation Present Platelet Estimate Decreased L Polychromasia Slight Hypochromasia (manual) Slight Poikilocytosis (manual Slight Anisocytosis (manual) Moderate Macrocytosis (manual) Slight Target Cells Brandy Cells Slight Schistocytes Slight PT 38.2 H* INR 3.5 APTT 55 H pO2 VBG pH VBG pCO2 VBG HCO3 VBG Total CO2 VBG O2 Sat (Calc) VBG Base Excess VBG Potassium Glucose Lactate Crit Value Called To Crit Value Called By Crit Value Read Back Blood Gas Notified Time Sodium Potassium Chloride Carbon Dioxide Anion Gap BUN Creatinine Est GFR ( Amer) Est GFR (Non-Af Amer) Random Glucose Lactic Acid Calcium Phosphorus Magnesium Total Bilirubin AST ALT Alkaline Phosphatase Ammonia NT-Pro-B Natriuret Pep Total Protein Albumin Globulin Albumin/Globulin Ratio Lipase Alpha Fetoprotein Venous Blood Potassium Urine Color [place] Urine Clarity Hazy Urine pH 5.0 Ur Specific [place] 1.016 Urine Protein 1+ H Urine Glucose (UA) Normal Urine Ketones Negative Urine Blood 3+ H Urine Nitrate Negative Urine Bilirubin 1+ H Urine Urobilinogen 4.0 Ur Leukocyte Esterase 3+ H Urine WBC (Auto) 451 H Urine RBC (Auto) 228 H Ur Squamous Epith Cells 1 Urine Bacteria Many H Hyaline Casts 11-20 H Urine Yeast (Budding) Occ H Urine Opiates Screen Urine Methadone Screen Ur Barbiturates Screen Ur Phencyclidine Scrn Ur Amphetamines Screen U Benzodiazepines Scrn U Oth Cocaine Metabols U Cannabinoids Screen Alcohol, Quantitative 05/22/18 05/22/18 05/22/18 18:52 18:52 19:00 WBC RBC Hgb Hct MCV MCH MCHC RDW Plt Count MPV Neut % (Auto) Lymph % (Auto) Saline % (Auto) Eos % (Auto) Baso % (Auto) Neut # (Auto) Lymph # (Auto) Saline # (Auto) Eos # (Auto) Baso # (Auto) Neutrophils % (Manual) Band Neutrophils % Lymphocytes % (Manual) Monocytes % (Manual) Eosinophils % (Manual) Metamyelocytes % Toxic Granulation Platelet Estimate Polychromasia Hypochromasia (manual) Poikilocytosis (manual Anisocytosis (manual) Macrocytosis (manual) Target Cells [place] Cells Schistocytes PT INR APTT pO2 VBG pH VBG pCO2 VBG HCO3 VBG Total CO2 VBG O2 Sat (Calc) VBG Base Excess VBG Potassium Glucose Lactate Crit Value Called To Crit Value Called By Crit Value Read Back Blood Gas Notified Time Sodium 137 Potassium 5.3 H Chloride 105 Carbon Dioxide 18 L Anion Gap 19 BUN 33 H Creatinine 2.6 H Est GFR ( Amer) 32 Est GFR (Non-Af Amer) 26 Random Glucose 108 Lactic Acid Calcium 8.7 Phosphorus Magnesium Total Bilirubin 18.7 H AST 114 H ALT 53 Alkaline Phosphatase 84 Ammonia 12 D NT-Pro-B Natriuret Pep Total Protein 6.3 Albumin 2.2 L Globulin 4.1 H Albumin/Globulin Ratio 0.5 L Lipase 611 H Alpha Fetoprotein Venous Blood Potassium Urine Color Urine Clarity Urine pH Ur Specific [place] Urine Protein Urine Glucose (UA) Urine Ketones Urine Blood Urine Nitrate Urine Bilirubin Urine Urobilinogen Ur Leukocyte Esterase Urine WBC (Auto) Urine RBC (Auto) Ur Squamous Epith Cells Urine Bacteria Hyaline Casts Urine Yeast (Budding) Urine Opiates Screen Positive H Urine Methadone Screen Negative Ur Barbiturates Screen Negative Ur Phencyclidine Scrn Negative Ur Amphetamines Screen Negative U Benzodiazepines Scrn Positive U Oth Cocaine Metabols Negative U Cannabinoids Screen Negative Alcohol, Quantitative < 10 05/22/18 05/23/18 05/23/18 19:40 00:23 06:17 WBC RBC Hgb Hct MCV MCH MCHC RDW Plt Count MPV Neut % (Auto) Lymph % (Auto) Saline % (Auto) Eos % (Auto) Baso % (Auto) Neut # (Auto) Lymph # (Auto) Saline # (Auto) Eos # (Auto) Baso # (Auto) Neutrophils % (Manual) Band Neutrophils % Lymphocytes % (Manual) Monocytes % (Manual) Eosinophils % (Manual) Metamyelocytes % Toxic Granulation Platelet Estimate Polychromasia Hypochromasia (manual) Poikilocytosis (manual Anisocytosis (manual) Macrocytosis (manual) Target Cells [place] Cells Schistocytes PT INR APTT pO2 42 VBG pH 7.29 L VBG pCO2 34 L VBG HCO3 16.9 VBG Total CO2 17.3 L VBG O2 Sat (Calc) 74.6 H VBG Base Excess -9.3 L VBG Potassium 4.8 Glucose 99 Lactate 6.1 H* Crit Value Called To Er nurse Crit Value Called By Courtney rt Crit Value Read Back Y Blood Gas Notified Time 1944 Sodium 134.0 Potassium Chloride 103.0 Carbon Dioxide Anion Gap BUN Creatinine Est GFR ( Amer) Est GFR (Non-Af Amer) Random Glucose Lactic Acid 3.3 H Calcium Phosphorus Magnesium Total Bilirubin AST ALT Alkaline Phosphatase Ammonia NT-Pro-B Natriuret Pep Total Protein Albumin Globulin Albumin/Globulin Ratio Lipase Alpha Fetoprotein 1.9 Venous Blood Potassium 4.8 Urine Color Urine Clarity Urine pH Ur Specific [place] Urine Protein Urine Glucose (UA) Urine Ketones Urine Blood Urine Nitrate Urine Bilirubin Urine Urobilinogen Ur Leukocyte Esterase Urine WBC (Auto) Urine RBC (Auto) Ur Squamous Epith Cells Urine Bacteria Hyaline Casts Urine Yeast (Budding) Urine Opiates Screen Urine Methadone Screen Ur Barbiturates Screen Ur Phencyclidine Scrn Ur Amphetamines Screen U Benzodiazepines Scrn U Oth Cocaine Metabols U Cannabinoids Screen Alcohol, Quantitative 05/23/18 05/23/18 05/23/18 06:17 06:17 06:17 WBC 11.5 H RBC 2.45 L Hgb 8.4 L D Hct 24.0 L MCV 98.0 H MCH 34.4 H MCHC 35.1 RDW 18.0 H Plt Count 35 L MPV 12.3 H Neut % (Auto) 83.3 H Lymph % (Auto) 8.1 L Saline % (Auto) 4.4 Eos % (Auto) 3.9 Baso % (Auto) 0.3 Neut # (Auto) 9.6 H Lymph # (Auto) 0.9 L Saline # (Auto) 0.5 Eos # (Auto) 0.4 Baso # (Auto) 0.0 Neutrophils % (Manual) 73 Band Neutrophils % 19 H* Lymphocytes % (Manual) TEST NOT PERFORMED Monocytes % (Manual) 5 Eosinophils % (Manual) 3 Metamyelocytes % Toxic Granulation Platelet Estimate Decreased L Polychromasia Hypochromasia (manual) Slight Poikilocytosis (manual Slight Anisocytosis (manual) Slight Macrocytosis (manual) Target Cells Slight Brandy Cells Schistocytes PT 41.2 H* INR 3.8 APTT 65 H D pO2 VBG pH VBG pCO2 VBG HCO3 VBG Total CO2 VBG O2 Sat (Calc) VBG Base Excess VBG Potassium Glucose Lactate Crit Value Called To Crit Value Called By Crit Value Read Back Blood Gas Notified Time Sodium Potassium Chloride Carbon Dioxide Anion Gap BUN Creatinine Est GFR ( Amer) Est GFR (Non-Af Amer) Random Glucose Lactic Acid 2.1 Calcium Phosphorus Magnesium Total Bilirubin AST ALT Alkaline Phosphatase Ammonia NT-Pro-B Natriuret Pep Total Protein Albumin Globulin Albumin/Globulin Ratio Lipase Alpha Fetoprotein Venous Blood Potassium Urine Color Urine Clarity Urine pH Ur Specific [place] Urine Protein Urine Glucose (UA) Urine Ketones Urine Blood Urine Nitrate Urine Bilirubin Urine Urobilinogen Ur Leukocyte Esterase Urine WBC (Auto) Urine RBC (Auto) Ur Squamous Epith Cells Urine Bacteria Hyaline Casts Urine Yeast (Budding) Urine Opiates Screen Urine Methadone Screen Ur Barbiturates Screen Ur Phencyclidine Scrn Ur Amphetamines Screen U Benzodiazepines Scrn U Oth Cocaine Metabols U Cannabinoids Screen Alcohol, Quantitative 05/23/18 05/23/18 06:17 06:17 WBC RBC Hgb Hct MCV MCH MCHC RDW Plt Count MPV Neut % (Auto) Lymph % (Auto) Saline % (Auto) Eos % (Auto) Baso % (Auto) Neut # (Auto) Lymph # (Auto) Saline # (Auto) Eos # (Auto) Baso # (Auto) Neutrophils % (Manual) Band Neutrophils % Lymphocytes % (Manual) Monocytes % (Manual) Eosinophils % (Manual) Metamyelocytes % Toxic Granulation Platelet Estimate Polychromasia Hypochromasia (manual) Poikilocytosis (manual Anisocytosis (manual) Macrocytosis (manual) Target Cells Brandy Cells Schistocytes PT INR APTT pO2 VBG pH VBG pCO2 VBG HCO3 VBG Total CO2 VBG O2 Sat (Calc) VBG Base Excess VBG Potassium Glucose Lactate Crit Value Called To Crit Value Called By Crit Value Read Back Blood Gas Notified Time Sodium 138 Potassium 4.1 Chloride 107 Carbon Dioxide 21 L Anion Gap 14 BUN 38 H Creatinine 2.0 H Est GFR ( Amer) 43 Est GFR (Non-Af Amer) 36 Random Glucose 65 L Lactic Acid Calcium 7.4 L Phosphorus 4.9 H Magnesium 1.3 L Total Bilirubin 15.8 H AST 73 H D ALT 48 Alkaline Phosphatase 63 Ammonia 25 D NT-Pro-B Natriuret Pep 1580 H Total Protein 5.2 L Albumin 1.7 L D Globulin 3.5 Albumin/Globulin Ratio 0.5 L Lipase Alpha Fetoprotein Venous Blood Potassium Urine Color Urine Clarity Urine pH Ur Specific [place] Urine Protein Urine Glucose (UA) Urine Ketones Urine Blood Urine Nitrate Urine Bilirubin Urine Urobilinogen Ur Leukocyte Esterase Urine WBC (Auto) Urine RBC (Auto) Ur Squamous Epith Cells Urine Bacteria Hyaline Casts Urine Yeast (Budding) Urine Opiates Screen Urine Methadone Screen Ur Barbiturates Screen Ur Phencyclidine Scrn Ur Amphetamines Screen U Benzodiazepines Scrn U Oth Cocaine Metabols U Cannabinoids Screen Alcohol, Quantitative EKG/Cardiology Studies: Cardiology / EKG Studies 05/22/18 21:45 EKG [ELECTROCARDIOGRAM] Stat Comment: bed 7 Mode Of Transportation: BED Reason For Exam: cp Review of Systems - Review of Systems All systems: reviewed and no additional remarkable complaints except (as per HPI ) Critical Care Progress Note - Prophylaxis GI Prophylaxis GI: PPI - Prophylaxis DVT Prophylaxis DVT: SCDs - Nutrition Nutrition: Nutrition Category Date Time Status NPO Diet [DIET] Diets 05/23/18 Breakfast Active Assessment/Plan - Assessment and Plan (Free Text) Assessment: This is a 47 y/o male with PMHx of Hepatic Encephalopathy 2/2 cirrhosis, Untreated Hepatitis C (HCC ruled out), pancytopenia, Splenomegaly, Nephrolithasis, Polysubstance abuse who presented to ED on 05/22 for complaints of abdominal pain for the past 3 days, associated with NBNB vomiting on 05/21 and 2 days of nonbloody diarrhea. Pt admits to using 5 bags of heroin on 05/21, usually uses 20 bags daily. Pt admitted to ICU with urosepsis secondary to pyelonephritis and nephrolithiasis. Neuro: - monitor for mental status changes - pt is AAOx3 but remains lethargic - ciwa protocol - lorazepam 1 mg PO TID for withdrawal prevention - gabapentin 300 mg po bid - thiamine and folate Cardio: - maintain MAP>65 mmHg - continue midodrine/octreotide for possible hepatorenal syndrome - f/u echocardiogram Pulm: - CXR (05/23) shows multifocal infiltrates lower love distribution primarily similar findings identified previously. - pt satting well on RA - maintain spo2>92% GI: - HHD - Abd/pelv CT (05/23) shows pancolitis non specific, no obstruction. Hepatic cirrhosis. Splenomegaly. Ascites. Varicies. Nonobstructing 18 mm proximal left ureteral calculus and 9 mm left lower pole renal calculus. Additional very small non-obstructing left lower pole renal calculi. - continue home lactulose for hx of hepatic encephalopathy; ammonia is currently 25. - meld-na score of 39 (tbili 15.8, inr 3.8, cr 2.0) - Protonix for pud ppx Renal: - abdominal us (05/23) shows moderate ascites. cirrhotic manifestation of liver. Portal vein is patent. Splenomegaly. Gallbladder sludge and mild diffuse gallbladder thickening. Left renal nonobstructing stone and proximal left ureteral stone. - RACHANA, possibly secondary to hepatorenal syndrome/urosepsis secondary to pyelonephritis due to nephrolithiasis - BUN/Cr is slightly improving (38/2.0) - continue ivf with albumin - replete electrolytes as needed - Urology consult, who reports that he would like to do a procedure to help alleviate pt's pain and symptoms but INR is elevated and would like the pt to be more optimized for surgery prior to proceeding with a procedure - f/u nephro recs ID: - urosepsis secondary to nephrolithiasis (see ct reading) - leukocytosis and bandemia are downtrending (11.5/19) - pt remains afebrile - continue flagyl, merrem as per ID - urine culture is negative for growth - f/u BCx2, stool cultures, stool ova and parasite - f/u ID recs Endo: - maintain euglycemia Heme: - pt has elevated Pt and INR secondary to hepatic cirrhosis (41.2/3.8) - vitamin k 10 mg IV - vte ppx is contraindicated due to INR>3 Psych: - utox (+) for opioids and benzos - methadone as per psych - f/u psych recs PPX: protinix for pud, scds for vte Dispo: prognosis guarded Case was reviewed and discussed with attending physician, Dr. Larios
[2018-05-23 12:34] LABS: CREATININE, RANDOM URINE 173.4 mg/dL
--- NOTE | 2018-05-23 12:56 | PCM.PSYCH ---
Initial Psychiatric Evaluation - Initial Psychiatric Evaluation Type of Admission: Voluntary Legal Status: Capacity Chief Complaint (in patient's own words): "I am in pain" History of Present Illness and Precipitating Events: The patient is seen, chart reviewed and case discussed. Consultation was requested for his opioid use. He is known from a recent detox admission. He is in ICU for sepsis Pt is a 47-year-old male, single with no child, lives with his sister in [place], unemployed. The patient says she went to [place] after his detox with us and relapse into heroin there. He is using 10 bags IV heroin for the past 4 years on and off. He used alcohol but decreased his use several months ago. He denies smoking cigarettes or other drugs. However, he does take Xanax on and off. Denies seizures He had 2 detoxes and he has never been to rehabilitation. 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 Past psych history: Denies but feels depressed now Medical history: Hepatitis C Family psych history: Denies Current Medications: Active Medications Generic Name Dose Route Start Last Admin Trade Name Violetta PRN Reason Stop Dose Admin Folic Acid 1 mg 05/23/18 10:00 05/23/18 10:06 Folic Acid PO 1 mg DAILY ROBYN Administration Gabapentin 300 mg 05/23/18 10:00 05/23/18 10:07 Neurontin PO 300 mg BID ROBYN Administration Meropenem 1 gm/ Sodium 100 mls @ 100 mls/hr 05/23/18 09:00 05/23/18 08:13 Chloride IVPB 100 mls/hr Q8H ROBYN Administration Albumin Human 100 mls @ 200 mls/hr 05/23/18 10:00 05/23/18 10:05 Albumin Human 25% (12.5 Gm/50 Ml) IV 200 mls/hr DAILY ROBYN Administration Albumin Human 100 mls @ 200 mls/hr 05/23/18 10:00 05/23/18 11:18 Albumin Human 25% (12.5 Gm/50 Ml) IV 200 mls/hr DAILY ROBYN Administration Sodium Chloride 1,000 mls @ 100 mls/hr 05/23/18 09:30 05/23/18 10:04 Sodium Chloride 0.9% IV 100 mls/hr .Q10H ROBYN Administration Dextrose 1,000 mls @ 30 mls/hr 05/23/18 12:00 Dextrose 10% In Water IV .Q24H ROBYN Metronidazole 500 mg in 100 mls @ 100 mls/hr 05/23/18 11:30 Flagyl IVPB Q8H [facility] Protocol Lactulose 30 gm 05/23/18 10:00 05/23/18 10:06 Enulose PO 30 gm TID ROBYN Administration Lorazepam 1 mg 05/23/18 14:00 Ativan PO TID ROBYN Midodrine 7.5 mg 05/23/18 10:00 05/23/18 10:06 Proamatine PO 7.5 mg TID ROBYN Administration Octreotide Acetate 200 mcg 05/23/18 08:00 05/23/18 08:13 Sandostatin SC 200 mcg Q8H ROBYN Administration Pantoprazole Sodium 40 mg 05/23/18 10:00 05/23/18 10:08 Protonix Inj IVP 40 mg Q12H ROBYN Administration Phytonadione 10 mg 05/23/18 10:00 05/23/18 10:10 Vitamin K Tab PO 05/26/18 10:01 10 mg DAILY ROBYN Administration Thiamine HCl 100 mg 05/23/18 10:00 05/23/18 10:06 Vitamin B1 Tab PO 100 mg DAILY ROBYN Administration Past Psychiatric History - Past Psychiatric History Previous Treatment History: None Pertinent Medical Hx (Current Medical&Sleep Prob, Allergies): Allergies Allergy/AdvReac Type Severity Reaction Status Date / Time No Known Allergies Allergy Verified 05/22/18 17:34 Thiamine HCl [B-1] 100 mg PO DAILY 30 Days #30 tablet 04/19/18 Folic Acid 1 mg PO DAILY tab 04/28/18 Folic Acid 1 mg PO DAILY 30 Days #30 tab 04/28/18 Furosemide [Lasix] 40 mg PO DAILY tab 04/28/18 Furosemide [Lasix] 40 mg PO DAILY #30 tab 04/28/18 Gabapentin 300 mg PO BID #60 capsule 04/28/18 Gabapentin [Neurontin] 300 mg PO BID cap 04/28/18 Gabapentin [Neurontin] 300 mg PO BID #60 cap 04/28/18 Lactulose [Enulose] 30 gm PO QID 10 Days #40 udc 04/28/18 Multivitamins [Hexavitamin] 1 tab PO DAILY tab 04/28/18 Multivitamins [Hexavitamin] 1 tab PO DAILY #30 tab 04/28/18 Pantoprazole [Protonix EC Tab] 20 mg PO DAILY ect 04/28/18 Phosphorus/Potassium/Sodium [Neutra-Phos] 1 pkt PO BID 2 Days #4 packet Spironolactone [Aldactone] 100 mg PO DAILY 10 Days #10 tab 04/28/18 Thiamine [Vitamin B1 Tab] 50 mg PO DAILY #30 tab 04/28/18 Review of Systems - Psychiatric Psychiatric: Abnormal Sleep Pattern, Anhedonia, Anxiety, Depression, Difficulty Concentrating, Irritability. absent: Hallucinations, Homicidal Ideation, Paranoia, Suicidal Ideation Mental Status Examination - Personal Presentation Personal Presentation: Looks older than stated age - Affect Affect: Constricted - Motor Activity Motor Activity: Calm - Reliability in Providing Information Reliability in Providing Information: Fair - Speech Speech: Organized - Mood Mood: Depressed, Anxious - Formal Thought Process Formal Thought Process: No Impairment - Cognitive Functions Orientation: Person, Place, Situation, Time Sensorium: Alert Attention/Concentration: Easily distracted Abstract Thinking: [place] Estimate of Intelligence: Below average Judgement: Imparied, as evidence by: Poor judgement Memory: Recent impaired, as evidence by: Inability to recall events of the day, Remote impaired as evidenced by: Inability to recall sig life events - Risk Risk: Withdrawal, Diminished functioning - Strength & Assets Inventory Strength & Assets Inventory: Family support, Cooperative - Limitations Limitations: Other DSM 5 DX - DSM 5 DSM 5 Diagnosis: Opioid withdrawal OPioid use d/o - severe depressive d/o- unspecified - Recommended/Plan of Treatment Treatment Recommendations and Plan of Treatment: Taper with methadone remeron for depressionand insomnia As needed medications All risks, benefits and alternatives of the meds discussed, and the pt agreed and understood. Supportive therapy and psychoeducation Encourage MAT, ie suboxone or methadone, upon discharge Also, consider rehab 34 min
[2018-05-23] MEDS: metroNIDAZOLE IV 500 mg/100 ml 500 MG/100 ML BAG IVPB SCH ×2 (13:07→19:41)
--- NOTE | 2018-05-23 15:00 | CP.PCM.CON ---
History of Present Illness - History of Present Illness History of Present Illness: PGY-4 GI Fellow Initial Consult Note The following obtained from chart review, hospital staff and mother at bedside due to patient clinical condition Mr. 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 He reportedly had a few days of nonspecific abdominal pain for which he took naproxen. Pt became more altered and subsequently admitted to ICU for Severe Urosepsis with RACHANA and AMS. GI consulted for liver cirrhosis. PMHx: Kidney stones. See above. PSHx: Cystoscopy. No EGD. Meds: Reviewed in [facility] FMHx: Unknown SocHx: Polysubstance abuse, IVDU, tobacco user, alcohol abuser (active use, last drink 05/21/18) All: NKDA Past Patient History - Infectious Disease Hx of Infectious Diseases: None - Tetanus Immunizations Tetanus Immunization: Unknown - Past Medical History & Family History Past Medical History?: Yes - Past Social History Smoking Status: Heavy Smoker > 10 Cigarettes Daily Drugs: Opiates Home Situation {Lives}: With Family - CARDIAC Hx Hypertension: No - PULMONARY Hx Asthma: Yes - NEUROLOGICAL Hx Seizures: No - HEENT Hx HEENT Problems: No - RENAL Hx Chronic Kidney Disease: No Hx Kidney Stones: Yes - ENDOCRINE/METABOLIC Hx Endocrine Disorders: No - HEMATOLOGICAL/ONCOLOGICAL Hx Human Immunodeficiency Virus (HIV): No - INTEGUMENTARY Hx Dermatological Problems: No - MUSCULOSKELETAL/RHEUMATOLOGICAL Hx Arthritis: Yes Hx Fractures: Yes (right arm) - GASTROINTESTINAL Other/Comment: right groin hernia - GENITOURINARY/GYNECOLOGICAL Hx Sexually Transmitted Disorders: No - PSYCHIATRIC Hx Substance Use: Yes - SURGICAL HISTORY Hx Coronary Stent: No - ANESTHESIA Hx Anesthesia: Yes Hx Anesthesia Reactions: No Hx Malignant Hyperthermia: No Meds Allergies/Adverse Reactions: Allergies Allergy/AdvReac Type Severity Reaction Status Date / Time No Known Allergies Allergy Verified 05/22/18 17:34 - Medications Medications: Current Medications Folic Acid (Folic Acid) 1 mg PO DAILY [facility] Last Admin: 05/23/18 10:06 Dose: 1 mg Gabapentin (Neurontin) 300 mg PO BID [facility] Last Admin: 05/23/18 10:07 Dose: 300 mg Meropenem 1 gm/ Sodium (Chloride) 100 mls @ 100 mls/hr IVPB Q8H [facility] Last Admin: 05/23/18 08:13 Dose: 100 mls/hr Albumin Human (Albumin Human 25% (12.5 Gm/50 Ml)) 100 mls @ 200 mls/hr IV DAILY [facility] Last Admin: 05/23/18 10:05 Dose: 200 mls/hr Albumin Human (Albumin Human 25% (12.5 Gm/50 Ml)) 100 mls @ 200 mls/hr IV DAILY [facility] Last Admin: 05/23/18 11:18 Dose: 200 mls/hr Sodium Chloride (Sodium Chloride 0.9%) 1,000 mls @ 100 mls/hr IV .Q10H [facility] Last Admin: 05/23/18 10:04 Dose: 100 mls/hr Dextrose (Dextrose 10% In Water) 1,000 mls @ 30 mls/hr IV .Q24H [facility] Last Admin: 05/23/18 11:30 Dose: 30 mls/hr Metronidazole (Flagyl) 500 mg in 100 mls @ 100 mls/hr IVPB Q8H [facility] PRN Reason: Protocol Last Admin: 05/23/18 13:07 Dose: 100 mls/hr Lactulose (Enulose) 30 gm PO TID [facility] Last Admin: 05/23/18 13:18 Dose: Not Given Lorazepam (Ativan) 1 mg PO TID [facility] Last Admin: 05/23/18 13:10 Dose: 1 mg Methadone HCl (Methadone) 15 mg PO Q24H [facility] PRN Reason: Taper Stop: 05/27/18 08:59 Midodrine (Proamatine) 7.5 mg PO TID [facility] Last Admin: 05/23/18 13:07 Dose: 7.5 mg Octreotide Acetate (Sandostatin) 200 mcg SC Q8H [facility] Last Admin: 05/23/18 08:13 Dose: 200 mcg Pantoprazole Sodium (Protonix Inj) 40 mg IVP Q12H [facility] Last Admin: 05/23/18 10:08 Dose: 40 mg Phytonadione (Vitamin K Tab) 10 mg PO DAILY [facility] Stop: 05/26/18 10:01 Last Admin: 05/23/18 10:10 Dose: 10 mg Thiamine HCl (Vitamin B1 Tab) 100 mg PO DAILY [facility] Last Admin: 05/23/18 10:06 Dose: 100 mg Physical Exam - Constitutional Appears: Unkempt, Confused, Chronically Ill - Head Exam Head Exam: ATRAUMATIC Additional comments: temp wasting, jaundiced - Eye Exam Eye Exam: Scleral icterus. absent: Conjunctival injection - ENT Exam ENT Exam: Mucous Membranes Dry, Normal External Ear Exam. absent: Mucous Membranes Moist - Respiratory Exam Respiratory Exam: Clear to Auscultation Bilateral. absent: Accessory Muscle Use , Wheezes - Cardiovascular Exam Cardiovascular Exam: REGULAR RHYTHM, Systolic Murmur (faint 2/6, split S2) - GI/Abdominal Exam GI & Abdominal Exam: Distended, Hernia (mild reducible umb hernia), Normal Bowel Sounds, Soft, Tenderness (throughout). absent: Bruit, Diminished Bowel Sounds, Firm, Guarding, Rigid Additional comments: flank fullness, +umb veins - Rectal Exam Rectal Exam: Deferred - Neurological Exam Neurological exam: Altered Additional comments: Somnolent, awake to loud verbal stim but falls asleep quickly and unable to provide history - Skin Skin Exam: Dry Additional comments: jaundiced Results - Vital Signs Recent Vital Signs: Last Vital Signs Temp 97.5 F L 05/23/18 12:00 Pulse 89 05/23/18 14:00 Resp 16 05/23/18 14:00 BP 101/59 L 05/23/18 14:00 Pulse Ox 96 05/23/18 14:00 - Labs Result Diagrams: 05/23/18 06:17 05/23/18 06:17 Labs: Laboratory Results - last 24 hr 05/22/18 05/22/18 05/22/18 18:52 18:52 18:52 WBC 22.9 H D RBC 3.17 L Hgb 10.8 L Hct 31.6 L MCV 99.6 H D MCH 34.0 H MCHC 34.1 RDW 18.6 H Plt Count 45 L MPV 12.6 H Neut % (Auto) 91.6 H Lymph % (Auto) 4.6 L [place] % (Auto) 2.5 Eos % (Auto) 1.1 Baso % (Auto) 0.2 Neut # (Auto) 21.0 H Lymph # (Auto) 1.0 [place] # (Auto) 0.6 Eos # (Auto) 0.3 Baso # (Auto) 0.0 Neutrophils % (Manual) 50 Band Neutrophils % 40 H* Lymphocytes % (Manual) 5 L Monocytes % (Manual) 2 Eosinophils % (Manual) 2 Metamyelocytes % 1 H Toxic Granulation Present Platelet Estimate Decreased L Polychromasia Slight Hypochromasia (manual) Slight Poikilocytosis (manual Slight Anisocytosis (manual) Moderate Macrocytosis (manual) Slight Target Cells Brandy Cells Slight Schistocytes Slight PT 38.2 H* INR 3.5 APTT 55 H pO2 VBG pH VBG pCO2 VBG HCO3 VBG Total CO2 VBG O2 Sat (Calc) VBG Base Excess VBG Potassium Glucose Lactate Crit Value Called To Crit Value Called By Crit Value Read Back Blood Gas Notified Time Sodium Potassium Chloride Carbon Dioxide Anion Gap BUN Creatinine Est GFR ( Amer) Est GFR (Non-Af Amer) Random Glucose Lactic Acid Calcium Phosphorus Magnesium Total Bilirubin AST ALT Alkaline Phosphatase Ammonia NT-Pro-B Natriuret Pep Total Protein Albumin Globulin Albumin/Globulin Ratio Lipase Alpha Fetoprotein Venous Blood Potassium Urine Color [place] Urine Clarity Hazy Urine pH 5.0 Ur Specific [place] 1.016 Urine Protein 1+ H Urine Glucose (UA) Normal Urine Ketones Negative Urine Blood 3+ H Urine Nitrate Negative Urine Bilirubin 1+ H Urine Urobilinogen 4.0 Ur Leukocyte Esterase 3+ H Urine WBC (Auto) 451 H Urine RBC (Auto) 228 H Ur Squamous Epith Cells 1 Urine Bacteria Many H Hyaline Casts 11-20 H Urine Yeast (Budding) Occ H Ur Random Creatinine Ur Random Sodium Urine Opiates Screen Urine Methadone Screen Ur Barbiturates Screen Ur Phencyclidine Scrn Ur Amphetamines Screen U Benzodiazepines Scrn U Oth Cocaine Metabols U Cannabinoids Screen Alcohol, Quantitative 05/22/18 05/22/18 05/22/18 18:52 18:52 19:00 WBC RBC Hgb Hct MCV MCH MCHC RDW Plt Count MPV Neut % (Auto) Lymph % (Auto) [place] % (Auto) Eos % (Auto) Baso % (Auto) Neut # (Auto) Lymph # (Auto) [place] # (Auto) Eos # (Auto) Baso # (Auto) Neutrophils % (Manual) Band Neutrophils % Lymphocytes % (Manual) Monocytes % (Manual) Eosinophils % (Manual) Metamyelocytes % Toxic Granulation Platelet Estimate Polychromasia Hypochromasia (manual) Poikilocytosis (manual Anisocytosis (manual) Macrocytosis (manual) Target Cells [place] Cells Schistocytes PT INR APTT pO2 VBG pH VBG pCO2 VBG HCO3 VBG Total CO2 VBG O2 Sat (Calc) VBG Base Excess VBG Potassium Glucose Lactate Crit Value Called To Crit Value Called By Crit Value Read Back Blood Gas Notified Time Sodium 137 Potassium 5.3 H Chloride 105 Carbon Dioxide 18 L Anion Gap 19 BUN 33 H Creatinine 2.6 H Est GFR ( Amer) 32 Est GFR (Non-Af Amer) 26 Random Glucose 108 Lactic Acid Calcium 8.7 Phosphorus Magnesium Total Bilirubin 18.7 H AST 114 H ALT 53 Alkaline Phosphatase 84 Ammonia 12 D NT-Pro-B Natriuret Pep Total Protein 6.3 Albumin 2.2 L Globulin 4.1 H Albumin/Globulin Ratio 0.5 L Lipase 611 H Alpha Fetoprotein Venous Blood Potassium Urine Color Urine Clarity Urine pH Ur Specific [place] Urine Protein Urine Glucose (UA) Urine Ketones Urine Blood Urine Nitrate Urine Bilirubin Urine Urobilinogen Ur Leukocyte Esterase Urine WBC (Auto) Urine RBC (Auto) Ur Squamous Epith Cells Urine Bacteria Hyaline Casts Urine Yeast (Budding) Ur Random Creatinine Ur Random Sodium Urine Opiates Screen Positive H Urine Methadone Screen Negative Ur Barbiturates Screen Negative Ur Phencyclidine Scrn Negative Ur Amphetamines Screen Negative U Benzodiazepines Scrn Positive U Oth Cocaine Metabols Negative U Cannabinoids Screen Negative Alcohol, Quantitative < 10 05/22/18 05/23/18 05/23/18 19:40 00:23 06:17 WBC RBC Hgb Hct MCV MCH MCHC RDW Plt Count MPV Neut % (Auto) Lymph % (Auto) [place] % (Auto) Eos % (Auto) Baso % (Auto) Neut # (Auto) Lymph # (Auto) [place] # (Auto) Eos # (Auto) Baso # (Auto) Neutrophils % (Manual) Band Neutrophils % Lymphocytes % (Manual) Monocytes % (Manual) Eosinophils % (Manual) Metamyelocytes % Toxic Granulation Platelet Estimate Polychromasia Hypochromasia (manual) Poikilocytosis (manual Anisocytosis (manual) Macrocytosis (manual) Target Cells [place] Cells Schistocytes PT INR APTT pO2 42 VBG pH 7.29 L VBG pCO2 34 L VBG HCO3 16.9 VBG Total CO2 17.3 L VBG O2 Sat (Calc) 74.6 H VBG Base Excess -9.3 L VBG Potassium 4.8 Glucose 99 Lactate 6.1 H* Crit Value Called To Er nurse Crit Value Called By Courtney rt Crit Value Read Back Y Blood Gas Notified Time 1944 Sodium 134.0 Potassium Chloride 103.0 Carbon Dioxide Anion Gap BUN Creatinine Est GFR ( Amer) Est GFR (Non-Af Amer) Random Glucose Lactic Acid 3.3 H Calcium Phosphorus Magnesium Total Bilirubin AST ALT Alkaline Phosphatase Ammonia NT-Pro-B Natriuret Pep Total Protein Albumin Globulin Albumin/Globulin Ratio Lipase Alpha Fetoprotein 1.9 Venous Blood Potassium 4.8 Urine Color Urine Clarity Urine pH Ur Specific [place] Urine Protein Urine Glucose (UA) Urine Ketones Urine Blood Urine Nitrate Urine Bilirubin Urine Urobilinogen Ur Leukocyte Esterase Urine WBC (Auto) Urine RBC (Auto) Ur Squamous Epith Cells Urine Bacteria Hyaline Casts Urine Yeast (Budding) Ur Random Creatinine Ur Random Sodium Urine Opiates Screen Urine Methadone Screen Ur Barbiturates Screen Ur Phencyclidine Scrn Ur Amphetamines Screen U Benzodiazepines Scrn U Oth Cocaine Metabols U Cannabinoids Screen Alcohol, Quantitative 05/23/18 05/23/18 05/23/18 06:17 06:17 06:17 WBC 11.5 H RBC 2.45 L Hgb 8.4 L D Hct 24.0 L MCV 98.0 H MCH 34.4 H MCHC 35.1 RDW 18.0 H Plt Count 35 L MPV 12.3 H Neut % (Auto) 83.3 H Lymph % (Auto) 8.1 L [place] % (Auto) 4.4 Eos % (Auto) 3.9 Baso % (Auto) 0.3 Neut # (Auto) 9.6 H Lymph # (Auto) 0.9 L [place] # (Auto) 0.5 Eos # (Auto) 0.4 Baso # (Auto) 0.0 Neutrophils % (Manual) 73 Band Neutrophils % 19 H* Lymphocytes % (Manual) TEST NOT PERFORMED Monocytes % (Manual) 5 Eosinophils % (Manual) 3 Metamyelocytes % Toxic Granulation Platelet Estimate Decreased L Polychromasia Hypochromasia (manual) Slight Poikilocytosis (manual Slight Anisocytosis (manual) Slight Macrocytosis (manual) Target Cells Slight [place] Cells Schistocytes PT 41.2 H* INR 3.8 APTT 65 H D pO2 VBG pH VBG pCO2 VBG HCO3 VBG Total CO2 VBG O2 Sat (Calc) VBG Base Excess VBG Potassium Glucose Lactate Crit Value Called To Crit Value Called By Crit Value Read Back Blood Gas Notified Time Sodium Potassium Chloride Carbon Dioxide Anion Gap BUN Creatinine Est GFR ( Amer) Est GFR (Non-Af Amer) Random Glucose Lactic Acid 2.1 Calcium Phosphorus Magnesium Total Bilirubin AST ALT Alkaline Phosphatase Ammonia NT-Pro-B Natriuret Pep Total Protein Albumin Globulin Albumin/Globulin Ratio Lipase Alpha Fetoprotein Venous Blood Potassium Urine Color Urine Clarity Urine pH Ur Specific [place] Urine Protein Urine Glucose (UA) Urine Ketones Urine Blood Urine Nitrate Urine Bilirubin Urine Urobilinogen Ur Leukocyte Esterase Urine WBC (Auto) Urine RBC (Auto) Ur Squamous Epith Cells Urine Bacteria Hyaline Casts Urine Yeast (Budding) Ur Random Creatinine Ur Random Sodium Urine Opiates Screen Urine Methadone Screen Ur Barbiturates Screen Ur Phencyclidine Scrn Ur Amphetamines Screen U Benzodiazepines Scrn U Oth Cocaine Metabols U Cannabinoids Screen Alcohol, Quantitative 05/23/18 05/23/18 05/23/18 06:17 06:17 11:53 WBC RBC Hgb Hct MCV MCH MCHC RDW Plt Count MPV Neut % (Auto) Lymph % (Auto) [place] % (Auto) Eos % (Auto) Baso % (Auto) Neut # (Auto) Lymph # (Auto) [place] # (Auto) Eos # (Auto) Baso # (Auto) Neutrophils % (Manual) Band Neutrophils % Lymphocytes % (Manual) Monocytes % (Manual) Eosinophils % (Manual) Metamyelocytes % Toxic Granulation Platelet Estimate Polychromasia Hypochromasia (manual) Poikilocytosis (manual Anisocytosis (manual) Macrocytosis (manual) Target Cells Brandy Cells Schistocytes PT INR APTT pO2 VBG pH VBG pCO2 VBG HCO3 VBG Total CO2 VBG O2 Sat (Calc) VBG Base Excess VBG Potassium Glucose Lactate Crit Value Called To Crit Value Called By Crit Value Read Back Blood Gas Notified Time Sodium 138 Potassium 4.1 Chloride 107 Carbon Dioxide 21 L Anion Gap 14 BUN 38 H Creatinine 2.0 H Est GFR ( Amer) 43 Est GFR (Non-Af Amer) 36 Random Glucose 65 L Lactic Acid Calcium 7.4 L Phosphorus 4.9 H Magnesium 1.3 L Total Bilirubin 15.8 H AST 73 H D ALT 48 Alkaline Phosphatase 63 Ammonia 25 D NT-Pro-B Natriuret Pep 1580 H Total Protein 5.2 L Albumin 1.7 L D Globulin 3.5 Albumin/Globulin Ratio 0.5 L Lipase Alpha Fetoprotein Venous Blood Potassium Urine Color Urine Clarity Urine pH Ur Specific [place] Urine Protein Urine Glucose (UA) Urine Ketones Urine Blood Urine Nitrate Urine Bilirubin Urine Urobilinogen Ur Leukocyte Esterase Urine WBC (Auto) Urine RBC (Auto) Ur Squamous Epith Cells Urine Bacteria Hyaline Casts Urine Yeast (Budding) Ur Random Creatinine 173.4 Ur Random Sodium 22 Urine Opiates Screen Urine Methadone Screen Ur Barbiturates Screen Ur Phencyclidine Scrn Ur Amphetamines Screen U Benzodiazepines Scrn U Oth Cocaine Metabols U Cannabinoids Screen Alcohol, Quantitative Assessment & Plan - Assessment and Plan (Free Text) Assessment: 47 yo Hisp Male with HCV+EtOH Cirrhosis presenting with abdominal pain, admitted to ICU for suspected Urosepsis. # Decompensated EtOH+HCV Cirrhosis: MELD-Na 40 on admission, CPS-C. Pt ongoing drinker and substance abuser; therefore not a transplant candidate. - HE: Lactulose titrating to at least 3 BMs per day. Trigger likely related to non-compliance, sepsis, RACHANA. - EV: Seen on CT, no EGDs on file. - Ascites: On Furosemide 40 and Spironolactone 100 mg as OP, hold for now given RACHANA. Recommend Paracentesis to r/o SBP. Currently on Meropenem+Metronidazole - HCC: No masses seen on CT and AFP wnl - HRS?: Possible. On midodrine, octreotide and given Albumin 25% 25 g. # EtOH Hepatitis: Maddrey 152 but with concomitant infection and RACHANA; therefore steroids contra-indicated. # Sepsis: Likely Urine with dirty UA, but UCx not growing. Should r/o SBP with paracentesis. # Polysubstace abuse Plan: - Recommend Paracentesis checking Albumin, total protein, cytology, culture, gram stain, cell count - If, SBP found would give 1.5 g/kg Albumin 25% day 1 and 1 g/kg on day 3 - Can continue with octreotide+midorine for now, agree with Renal consult --- If RACHANA persists after Urology eval and IV fluids, would fully challenge with albumin 25% 1g/kg x 48hrs - See above Assessment for further recs Pt discussed with Dr. Yeh, to see pt later. See his attestation for further recs/changes.
--- NOTE | 2018-05-23 15:05 | CP.PCM.CON ---
History of Present Illness - History of Present Illness History of Present Illness: Nephrology Consultation Note covering for Dr Tom: Assessment:critical Acute Kidney Injury (N17.9) likely multifactorial due to sepsis/shock/intravasc volume depletion. Decompensated liver disease also could contributed lactic acidosis left urteral stone with UTI pancolitis cirrhosis with ascites and splenomegaly anemia and thrombocytopenia with coagulopathy active substance abuse with heroine/etoh, hep C + AMS Plan No acute need for renal replacement therapy at this time. Maintain hemodynamics stable. Avoid hypotension. Patient not on ACEI/ARB due to recent RACHANA. agree with IVF and or IV albumin pt also started on empiric octreotide and midodrine. while HRS is a possibility , we have other reasons to explain his RACHANA Monitor Input/Output, daily weights and renal function with basic metabolic panel continue with antibiotics and ID team following Dose meds/antibiotics for reduced GFR. Avoid fleets enema/magnesium based laxatives. Avoid nephrotoxins/NSAIDs/ iodinated contrast (unless needed emergently) Glycemic control Further work up/management as per primary team Thanks for allowing me to participate in care of your patient. Will follow patient with you. Please call if any Qs. had d/w team Dr Zia Jordan Office: [phone] source of Info: EMR Chief Complaint; unable Reason for consult: Acute Kidney Injury HPI: Pt is a 47 M with hx of chronic Hep C, kidney stone (Brushite 80% with CaOx 20%) and active substance abuse presented with complaints of pain abdomen for 3 days. he was found to have pancolitis sepsis, UTI with kidney stone. renal consult for RACHANA eval no known OTC/herbal meds or NSAIDs No known recent iodinated contrast exposure. Noted obvious episodes of low BP. pt unable to provide ROS ROS: pt unable to provide Physical Examination: General Appearance: Comfortable, in no acute respiratory distress, ill appearing , sleepy/lethargic Vitals reviewed and noted as below Head; Atraumatic, normocephalic ENT: unable EYES: Pupils are equal, round and reactive to light accommodation. Eye muscles and extraocular movement intact. Sclera is anicteric. Neck; supple no lymphadenopathy, no thyromegaly or bruit Lungs: Normal respiratory rate/effort. Breath sounds bilateral equal and clear anteriorly Heart: Increased rate. s1s2 normal. No rub or gallop. Extremities: no edema. No varicose veins Neurological: Patient is sleepy/lethargic Skin: Warm and dry. Normal turgor. No rash. Palpitation: Normal elasticity for age Abdomen: Abdomen is soft/distended. Bowel sounds +. There is abdominal tenderness, no guarding/rigidity no organomegaly Psych: unable MSK: no joint tenderness or swelling. Digits and nails normal, no deformity : kidney or bladder not palpable but exam limited Labs/imaging reviewed. Past medical history, past surgical history, family history, social history, allergy reviewed and noted as below Family hx: no hx of CKD. Rest non-contributory work up: reviewed UA 3+ blood and RBCs with bacteria Fena0.2% Past Patient History - Infectious Disease Hx of Infectious Diseases: None - Tetanus Immunizations Tetanus Immunization: Unknown - Past Medical History & Family History Past Medical History?: Yes - Past Social History Smoking Status: Heavy Smoker > 10 Cigarettes Daily Drugs: Opiates Home Situation {Lives}: With Family - CARDIAC Hx Hypertension: No - PULMONARY Hx Asthma: Yes - NEUROLOGICAL Hx Seizures: No - HEENT Hx HEENT Problems: No - RENAL Hx Chronic Kidney Disease: No Hx Kidney Stones: Yes - ENDOCRINE/METABOLIC Hx Endocrine Disorders: No - HEMATOLOGICAL/ONCOLOGICAL Hx Human Immunodeficiency Virus (HIV): No - INTEGUMENTARY Hx Dermatological Problems: No - MUSCULOSKELETAL/RHEUMATOLOGICAL Hx Arthritis: Yes Hx Fractures: Yes (right arm) - GASTROINTESTINAL Other/Comment: right groin hernia - GENITOURINARY/GYNECOLOGICAL Hx Sexually Transmitted Disorders: No - PSYCHIATRIC Hx Substance Use: Yes - SURGICAL HISTORY Hx Coronary Stent: No - ANESTHESIA Hx Anesthesia: Yes Hx Anesthesia Reactions: No Hx Malignant Hyperthermia: No Meds Allergies/Adverse Reactions: Allergies Allergy/AdvReac Type Severity Reaction Status Date / Time No Known Allergies Allergy Verified 05/22/18 17:34 - Medications Medications: Current Medications Folic Acid (Folic Acid) 1 mg PO DAILY [facility] Last Admin: 05/23/18 10:06 Dose: 1 mg Gabapentin (Neurontin) 300 mg PO BID [facility] Last Admin: 05/23/18 10:07 Dose: 300 mg Meropenem 1 gm/ Sodium (Chloride) 100 mls @ 100 mls/hr IVPB Q8H [facility] Last Admin: 05/23/18 08:13 Dose: 100 mls/hr Albumin Human (Albumin Human 25% (12.5 Gm/50 Ml)) 100 mls @ 200 mls/hr IV DAILY [facility] Last Admin: 05/23/18 10:05 Dose: 200 mls/hr Albumin Human (Albumin Human 25% (12.5 Gm/50 Ml)) 100 mls @ 200 mls/hr IV DAILY [facility] Last Admin: 05/23/18 11:18 Dose: 200 mls/hr Sodium Chloride (Sodium Chloride 0.9%) 1,000 mls @ 100 mls/hr IV .Q10H [facility] Last Admin: 05/23/18 10:04 Dose: 100 mls/hr Dextrose (Dextrose 10% In Water) 1,000 mls @ 30 mls/hr IV .Q24H [facility] Last Admin: 05/23/18 11:30 Dose: 30 mls/hr Metronidazole (Flagyl) 500 mg in 100 mls @ 100 mls/hr IVPB Q8H [facility] PRN Reason: Protocol Last Admin: 05/23/18 13:07 Dose: 100 mls/hr Lactulose (Enulose) 30 gm PO TID [facility] Last Admin: 05/23/18 13:18 Dose: Not Given Lorazepam (Ativan) 1 mg PO TID [facility] Last Admin: 05/23/18 13:10 Dose: 1 mg Methadone HCl (Methadone) 15 mg PO Q24H [facility] PRN Reason: Taper Stop: 05/27/18 08:59 Midodrine (Proamatine) 7.5 mg PO TID [facility] Last Admin: 05/23/18 13:07 Dose: 7.5 mg Octreotide Acetate (Sandostatin) 200 mcg SC Q8H [facility] Last Admin: 05/23/18 08:13 Dose: 200 mcg Pantoprazole Sodium (Protonix Inj) 40 mg IVP Q12H [facility] Last Admin: 05/23/18 10:08 Dose: 40 mg Phytonadione (Vitamin K Tab) 10 mg PO DAILY [facility] Stop: 05/26/18 10:01 Last Admin: 05/23/18 10:10 Dose: 10 mg Thiamine HCl (Vitamin B1 Tab) 100 mg PO DAILY [facility] Last Admin: 05/23/18 10:06 Dose: 100 mg Results - Vital Signs Recent Vital Signs: Last Vital Signs Temp 97.9 F 05/23/18 08:00 Pulse 92 H 05/23/18 11:00 Resp 16 05/23/18 11:00 BP 95/49 L 05/23/18 11:00 Pulse Ox 98 05/23/18 11:00 - Labs Result Diagrams: 05/23/18 06:17 05/23/18 06:17 Labs: Laboratory Results - last 24 hr 05/22/18 05/22/18 05/22/18 18:52 18:52 18:52 WBC 22.9 H D RBC 3.17 L Hgb 10.8 L Hct 31.6 L MCV 99.6 H D MCH 34.0 H MCHC 34.1 RDW 18.6 H Plt Count 45 L MPV 12.6 H Neut % (Auto) 91.6 H Lymph % (Auto) 4.6 L Nash % (Auto) 2.5 Eos % (Auto) 1.1 Baso % (Auto) 0.2 Neut # (Auto) 21.0 H Lymph # (Auto) 1.0 Nash # (Auto) 0.6 Eos # (Auto) 0.3 Baso # (Auto) 0.0 Neutrophils % (Manual) 50 Band Neutrophils % 40 H* Lymphocytes % (Manual) 5 L Monocytes % (Manual) 2 Eosinophils % (Manual) 2 Metamyelocytes % 1 H Toxic Granulation Present Platelet Estimate Decreased L Polychromasia Slight Hypochromasia (manual) Slight Poikilocytosis (manual Slight Anisocytosis (manual) Moderate Macrocytosis (manual) Slight Target Cells Brandy Cells Slight Schistocytes Slight PT 38.2 H* INR 3.5 APTT 55 H pO2 VBG pH VBG pCO2 VBG HCO3 VBG Total CO2 VBG O2 Sat (Calc) VBG Base Excess VBG Potassium Glucose Lactate Crit Value Called To Crit Value Called By Crit Value Read Back Blood Gas Notified Time Sodium Potassium Chloride Carbon Dioxide Anion Gap BUN Creatinine Est GFR ( Amer) Est GFR (Non-Af Amer) Random Glucose Lactic Acid Calcium Phosphorus Magnesium Total Bilirubin AST ALT Alkaline Phosphatase Ammonia NT-Pro-B Natriuret Pep Total Protein Albumin Globulin Albumin/Globulin Ratio Lipase Alpha Fetoprotein Venous Blood Potassium Urine Color Kamryn Urine Clarity Hazy Urine pH 5.0 Ur Specific Vernon 1.016 Urine Protein 1+ H Urine Glucose (UA) Normal Urine Ketones Negative Urine Blood 3+ H Urine Nitrate Negative Urine Bilirubin 1+ H Urine Urobilinogen 4.0 Ur Leukocyte Esterase 3+ H Urine WBC (Auto) 451 H Urine RBC (Auto) 228 H Ur Squamous Epith Cells 1 Urine Bacteria Many H Hyaline Casts 11-20 H Urine Yeast (Budding) Occ H Ur Random Creatinine Ur Random Sodium Urine Opiates Screen Urine Methadone Screen Ur Barbiturates Screen Ur Phencyclidine Scrn Ur Amphetamines Screen U Benzodiazepines Scrn U Oth Cocaine Metabols U Cannabinoids Screen Alcohol, Quantitative 05/22/18 05/22/18 05/22/18 18:52 18:52 19:00 WBC RBC Hgb Hct MCV MCH MCHC RDW Plt Count MPV Neut % (Auto) Lymph % (Auto) Nash % (Auto) Eos % (Auto) Baso % (Auto) Neut # (Auto) Lymph # (Auto) Nash # (Auto) Eos # (Auto) Baso # (Auto) Neutrophils % (Manual) Band Neutrophils % Lymphocytes % (Manual) Monocytes % (Manual) Eosinophils % (Manual) Metamyelocytes % Toxic Granulation Platelet Estimate Polychromasia Hypochromasia (manual) Poikilocytosis (manual Anisocytosis (manual) Macrocytosis (manual) Target Cells Brandy Cells Schistocytes PT INR APTT pO2 VBG pH VBG pCO2 VBG HCO3 VBG Total CO2 VBG O2 Sat (Calc) VBG Base Excess VBG Potassium Glucose Lactate Crit Value Called To Crit Value Called By Crit Value Read Back Blood Gas Notified Time Sodium 137 Potassium 5.3 H Chloride 105 Carbon Dioxide 18 L Anion Gap 19 BUN 33 H Creatinine 2.6 H Est GFR ( Amer) 32 Est GFR (Non-Af Amer) 26 Random Glucose 108 Lactic Acid Calcium 8.7 Phosphorus Magnesium Total Bilirubin 18.7 H AST 114 H ALT 53 Alkaline Phosphatase 84 Ammonia 12 D NT-Pro-B Natriuret Pep Total Protein 6.3 Albumin 2.2 L Globulin 4.1 H Albumin/Globulin Ratio 0.5 L Lipase 611 H Alpha Fetoprotein Venous Blood Potassium Urine Color Urine Clarity Urine pH Ur Specific Vernon Urine Protein Urine Glucose (UA) Urine Ketones Urine Blood Urine Nitrate Urine Bilirubin Urine Urobilinogen Ur Leukocyte Esterase Urine WBC (Auto) Urine RBC (Auto) Ur Squamous Epith Cells Urine Bacteria Hyaline Casts Urine Yeast (Budding) Ur Random Creatinine Ur Random Sodium Urine Opiates Screen Positive H Urine Methadone Screen Negative Ur Barbiturates Screen Negative Ur Phencyclidine Scrn Negative Ur Amphetamines Screen Negative U Benzodiazepines Scrn Positive U Oth Cocaine Metabols Negative U Cannabinoids Screen Negative Alcohol, Quantitative < 10 05/22/18 05/23/18 05/23/18 19:40 00:23 06:17 WBC RBC Hgb Hct MCV MCH MCHC RDW Plt Count MPV Neut % (Auto) Lymph % (Auto) Nash % (Auto) Eos % (Auto) Baso % (Auto) Neut # (Auto) Lymph # (Auto) Nash # (Auto) Eos # (Auto) Baso # (Auto) Neutrophils % (Manual) Band Neutrophils % Lymphocytes % (Manual) Monocytes % (Manual) Eosinophils % (Manual) Metamyelocytes % Toxic Granulation Platelet Estimate Polychromasia Hypochromasia (manual) Poikilocytosis (manual Anisocytosis (manual) Macrocytosis (manual) Target Cells Brandy Cells Schistocytes PT INR APTT pO2 42 VBG pH 7.29 L VBG pCO2 34 L VBG HCO3 16.9 VBG Total CO2 17.3 L VBG O2 Sat (Calc) 74.6 H VBG Base Excess -9.3 L VBG Potassium 4.8 Glucose 99 Lactate 6.1 H* Crit Value Called To Er nurse Crit Value Called By Courtney rt Crit Value Read Back Y Blood Gas Notified Time 1944 Sodium 134.0 Potassium Chloride 103.0 Carbon Dioxide Anion Gap BUN Creatinine Est GFR ( Amer) Est GFR (Non-Af Amer) Random Glucose Lactic Acid 3.3 H Calcium Phosphorus Magnesium Total Bilirubin AST ALT Alkaline Phosphatase Ammonia NT-Pro-B Natriuret Pep Total Protein Albumin Globulin Albumin/Globulin Ratio Lipase Alpha Fetoprotein 1.9 Venous Blood Potassium 4.8 Urine Color Urine Clarity Urine pH Ur Specific Vernon Urine Protein Urine Glucose (UA) Urine Ketones Urine Blood Urine Nitrate Urine Bilirubin Urine Urobilinogen Ur Leukocyte Esterase Urine WBC (Auto) Urine RBC (Auto) Ur Squamous Epith Cells Urine Bacteria Hyaline Casts Urine Yeast (Budding) Ur Random Creatinine Ur Random Sodium Urine Opiates Screen Urine Methadone Screen Ur Barbiturates Screen Ur Phencyclidine Scrn Ur Amphetamines Screen U Benzodiazepines Scrn U Oth Cocaine Metabols U Cannabinoids Screen Alcohol, Quantitative 05/23/18 05/23/18 05/23/18 06:17 06:17 06:17 WBC 11.5 H RBC 2.45 L Hgb 8.4 L D Hct 24.0 L MCV 98.0 H MCH 34.4 H MCHC 35.1 RDW 18.0 H Plt Count 35 L MPV 12.3 H Neut % (Auto) 83.3 H Lymph % (Auto) 8.1 L Nash % (Auto) 4.4 Eos % (Auto) 3.9 Baso % (Auto) 0.3 Neut # (Auto) 9.6 H Lymph # (Auto) 0.9 L Nash # (Auto) 0.5 Eos # (Auto) 0.4 Baso # (Auto) 0.0 Neutrophils % (Manual) 73 Band Neutrophils % 19 H* Lymphocytes % (Manual) TEST NOT PERFORMED Monocytes % (Manual) 5 Eosinophils % (Manual) 3 Metamyelocytes % Toxic Granulation Platelet Estimate Decreased L Polychromasia Hypochromasia (manual) Slight Poikilocytosis (manual Slight Anisocytosis (manual) Slight Macrocytosis (manual) Target Cells Slight Brandy Cells Schistocytes PT 41.2 H* INR 3.8 APTT 65 H D pO2 VBG pH VBG pCO2 VBG HCO3 VBG Total CO2 VBG O2 Sat (Calc) VBG Base Excess VBG Potassium Glucose Lactate Crit Value Called To Crit Value Called By Crit Value Read Back Blood Gas Notified Time Sodium Potassium Chloride Carbon Dioxide Anion Gap BUN Creatinine Est GFR ( Amer) Est GFR (Non-Af Amer) Random Glucose Lactic Acid 2.1 Calcium Phosphorus Magnesium Total Bilirubin AST ALT Alkaline Phosphatase Ammonia NT-Pro-B Natriuret Pep Total Protein Albumin Globulin Albumin/Globulin Ratio Lipase Alpha Fetoprotein Venous Blood Potassium Urine Color Urine Clarity Urine pH Ur Specific Vernon Urine Protein Urine Glucose (UA) Urine Ketones Urine Blood Urine Nitrate Urine Bilirubin Urine Urobilinogen Ur Leukocyte Esterase Urine WBC (Auto) Urine RBC (Auto) Ur Squamous Epith Cells Urine Bacteria Hyaline Casts Urine Yeast (Budding) Ur Random Creatinine Ur Random Sodium Urine Opiates Screen Urine Methadone Screen Ur Barbiturates Screen Ur Phencyclidine Scrn Ur Amphetamines Screen U Benzodiazepines Scrn U Oth Cocaine Metabols U Cannabinoids Screen Alcohol, Quantitative 05/23/18 05/23/18 05/23/18 06:17 06:17 11:53 WBC RBC Hgb Hct MCV MCH MCHC RDW Plt Count MPV Neut % (Auto) Lymph % (Auto) Nash % (Auto) Eos % (Auto) Baso % (Auto) Neut # (Auto) Lymph # (Auto) Nash # (Auto) Eos # (Auto) Baso # (Auto) Neutrophils % (Manual) Band Neutrophils % Lymphocytes % (Manual) Monocytes % (Manual) Eosinophils % (Manual) Metamyelocytes % Toxic Granulation Platelet Estimate Polychromasia Hypochromasia (manual) Poikilocytosis (manual Anisocytosis (manual) Macrocytosis (manual) Target Cells Anna Cells Schistocytes PT INR APTT pO2 VBG pH VBG pCO2 VBG HCO3 VBG Total CO2 VBG O2 Sat (Calc) VBG Base Excess VBG Potassium Glucose Lactate Crit Value Called To Crit Value Called By Crit Value Read Back Blood Gas Notified Time Sodium 138 Potassium 4.1 Chloride 107 Carbon Dioxide 21 L Anion Gap 14 BUN 38 H Creatinine 2.0 H Est GFR ( Amer) 43 Est GFR (Non-Af Amer) 36 Random Glucose 65 L Lactic Acid Calcium 7.4 L Phosphorus 4.9 H Magnesium 1.3 L Total Bilirubin 15.8 H AST 73 H D ALT 48 Alkaline Phosphatase 63 Ammonia 25 D NT-Pro-B Natriuret Pep 1580 H Total Protein 5.2 L Albumin 1.7 L D Globulin 3.5 Albumin/Globulin Ratio 0.5 L Lipase Alpha Fetoprotein Venous Blood Potassium Urine Color Urine Clarity Urine pH Ur Specific Vernon Urine Protein Urine Glucose (UA) Urine Ketones Urine Blood Urine Nitrate Urine Bilirubin Urine Urobilinogen Ur Leukocyte Esterase Urine WBC (Auto) Urine RBC (Auto) Ur Squamous Epith Cells Urine Bacteria Hyaline Casts Urine Yeast (Budding) Ur Random Creatinine 173.4 Ur Random Sodium 22 Urine Opiates Screen Urine Methadone Screen Ur Barbiturates Screen Ur Phencyclidine Scrn Ur Amphetamines Screen U Benzodiazepines Scrn U Oth Cocaine Metabols U Cannabinoids Screen Alcohol, Quantitative
--- NOTE | 2018-05-23 22:21 | CARD ---
APPROVED REPORT Date of service: 05/23/2018 EXAM: Two-dimensional and M-mode echocardiogram with Doppler and color Doppler. INDICATION Murmur IV DRUG USE, SEVERE SEPSIS 2D DIMENSIONS IVSd1.0 (0.7-1.1cm)Aortic Root (2D)3.0 (2.0-3.7cm) LVDd4.6 (3.9-5.9cm)PWd1.0 (0.7-1.1cm) LVDs3.5 (2.5-4.0cm)FS (%) 23.3 % LVEF (%)60.0 (>50%) M-Mode DIMENSIONS RVDd1.34 (2.1-3.2cm)Left Atrium (MM)3.58 (2.5-4.0cm) IVSd1.00 (0.7-1.1cm)Aortic Root3.13 (2.2-3.7cm) LVDd5.89 (4.0-5.6cm)Aortic Cusp Exc.1.82 (1.5-2.0cm) PWd0.94 (0.7-1.1cm)FS (%) 32 % LVDs3.98 (2.0-3.8cm)TAPSE19.78 cm LVEF (%)60 (>50%) Mitral Valve MV E [id number]/sMV A Cztyqexc90.8cm/sE/A ratio1.4 TDI E/Lateral E'0.0E/Medial E'0.0 Tricuspid Valve TR Peak [id number]/sTR Peak [id number] LEFT VENTRICLE The left ventricle is normal size. There is normal left ventricular wall thickness. Left ventricle systolic function is normal. The Ejection Fraction is 65-70%. There is normal LV segmental wall motion. The left ventricular diastolic function is normal. There is no ventricular septal defect visualized. RIGHT VENTRICLE The right ventricle is normal size. The right ventricular systolic function is normal. ATRIA The left atrium size is normal. The right atrium size is normal. AORTIC VALVE The aortic valve is tri-cuspid. The aortic valve is normal in structure. No aortic regurgitation is present. There is no aortic valvular stenosis. MITRAL VALVE The mitral valve is normal in structure. There is no evidence of mitral valve prolapse. Mitral regurgitation is trace. TRICUSPID VALVE The tricuspid valve is normal in structure. There is trace to mild tricuspid regurgitation. Right ventricular systolic pressure is estimated at 40-50 mmHg. There is moderate pulmonary hypertension. PULMONIC VALVE The pulmonary valve is normal in structure. There is no pulmonic valvular regurgitation. GREAT VESSELS The aortic root is normal in size. The ascending aorta is normal in size. The IVC is normal in size and collapses >50% with inspiration. PERICARDIAL EFFUSION There is no pericardial effusion. <Conclusion> Left ventricle systolic function is normal. The Ejection Fraction is 65-70%. The left ventricular diastolic function is normal. There is moderate pulmonary hypertension. Unlikely vegetations.
--- NOTE | 2018-05-23 23:17 | CARD ---
APPROVED REPORT Date of service: 05/22/2018 EKG Measurement Heart [id number] <Conclusion> Sinus tachycardia Otherwise normal ECG
[2018-05-24] MEDS: Meropenem 1 GM in Sodium Chloride 0.9% 100 ML IVPB SCH ×3 (00:06→16:27)
[2018-05-24] MEDS: Sodium Chloride 0.9% 1,000 ML IV SCH ×3 (02:00→15:53)
[2018-05-24] MEDS: metroNIDAZOLE IV 500 mg/100 ml 500 MG/100 ML BAG IVPB SCH ×3 (03:00→19:37)
--- NOTE | 2018-05-24 05:04 | CP.CCUPN ---
<Ricardo Mcmillan - Last Filed: 05/24/18 12:49> CCU Subjective - Physician Review Subjective (Free Text): Ricardo Mcmillan DO PGY-1, ICU progress note for Dr. Pepe Pt was seen and examined at bedside. Pt remains lethargic, and is barely able to answer questions, possibly due to elevated ammonia level. Pt continues to complain of diffuse abdominal pain. No acute events overnight. Pt denies headache, dizziness, chest pain, shortness of breath, n/v/d. A full 12-point ROS was unable to be obtained due to AMS. CCU Objective - Vital Signs / Intake & Output Intake and Output (Last 8hrs): Intake & Output 05/23/18 05/23/18 05/24/18 14:59 22:59 06:59 Intake Total 1190 1260 1080 Output Total 500 0 0 Balance 690 1260 1080 Intake: Intake, IV Amount 1190 1040 780 Left Distal Port Forearm 90 240 180 Left Forearm 600 800 600 Right Forearm 500 Oral 220 300 Output: Urine 500 0 0 Urine, Voided 500 0 0 Other: # Voids Urine, Voided 1 - Physical Exam Physical Exam Limitations: Positive for: Altered Mental Status Head: Positive for: Atraumatic, Normocephalic Pupils: Positive for: PERRL Extroacular Muscles: Positive for: EOMI Conjunctiva: Positive for: Normal Mouth: Positive for: Moist Mucous Membranes Neck: Positive for: Normal Range of Motion Respiratory/Chest: Positive for: Clear to Auscultation, Good Air Exchange. Negative for: Respiratory Distress, Accessory Muscle Use Cardiovascular: Positive for: Regular Rate and Rhythm, Normal S1, S2 Abdomen: Positive for: Tenderness (diffuse abdominal tenderness), Normal Bowel Sounds, Other ((+) ascites; (+) moderate left CVA tenderness) Upper Extremity: Positive for: Normal Inspection Lower Extremity: Positive for: Normal Inspection. Negative for: Edema Neurological: Positive for: GCS=15 Skin: Positive for: Warm, Dry, Normal Color Psychiatric: Positive for: Lethargic (but arousable, soft spoken and unable to answer all of my questions appropriately, difficult to understand at times) - Medications Active Medications: Active Medications Generic Name Dose Route Start Last Admin Trade Name Freq PRN Reason Stop Dose Admin Folic Acid 1 mg 05/23/18 10:00 05/23/18 10:06 Folic Acid PO 1 mg DAILY ROBYN Administration Gabapentin 300 mg 05/23/18 10:00 05/23/18 17:28 Neurontin PO 300 mg BID ROBYN Administration Meropenem 1 gm/ Sodium 100 mls @ 100 mls/hr 05/23/18 09:00 05/24/18 00:06 Chloride IVPB 100 mls/hr Q8H ROBYN Administration Albumin Human 100 mls @ 200 mls/hr 05/23/18 10:00 05/23/18 10:05 Albumin Human 25% (12.5 Gm/50 Ml) IV 200 mls/hr DAILY ROBYN Administration Albumin Human 100 mls @ 200 mls/hr 05/23/18 10:00 05/23/18 11:18 Albumin Human 25% (12.5 Gm/50 Ml) IV 200 mls/hr DAILY ROBYN Administration Sodium Chloride 1,000 mls @ 100 mls/hr 05/23/18 09:30 05/24/18 02:00 Sodium Chloride 0.9% IV 100 mls/hr .Q10H ROBYN Administration Dextrose 1,000 mls @ 30 mls/hr 05/23/18 12:00 05/23/18 11:30 Dextrose 10% In Water IV 30 mls/hr .Q24H ROBYN Administration Metronidazole 500 mg in 100 mls @ 100 mls/hr 05/23/18 11:30 05/24/18 03:00 Flagyl IVPB 100 mls/hr Q8H ROBYN Administration Protocol Lactulose 30 gm 05/23/18 10:00 05/23/18 17:10 Enulose PO Not Given TID ROBYN Lorazepam 1 mg 05/23/18 14:00 05/23/18 19:54 Ativan PO 1 mg TID ROBYN Administration Methadone HCl 15 mg 05/24/18 09:00 Methadone PO 05/27/18 08:59 Q24H ROBYN Taper Midodrine 7.5 mg 05/23/18 10:00 05/23/18 17:28 Proamatine PO 7.5 mg TID ROBYN Administration Octreotide Acetate 200 mcg 05/23/18 08:00 05/23/18 23:13 Sandostatin SC 200 mcg Q8H ROBYN Administration Pantoprazole Sodium 40 mg 05/23/18 10:00 05/23/18 22:12 Protonix Inj IVP 40 mg Q12H ROBYN Administration Phytonadione 10 mg 05/23/18 10:00 05/23/18 10:10 Vitamin K Tab PO 05/26/18 10:01 10 mg DAILY ROBYN Administration Thiamine HCl 100 mg 05/23/18 10:00 05/23/18 10:06 Vitamin B1 Tab PO 100 mg DAILY ROBYN Administration - Patient Studies Lab Studies: Microbiology Studies 05/22/18 18:52 Urine Culture - Final Urine,Clean Catch No Growth (<1,000 CFU/ML) Lab Studies 05/23/18 05/23/18 05/23/18 Range/Units 16:19 11:53 06:17 WBC (4.8-10.8) K/uL RBC (4.40-5.90) Mil/uL Hgb (12.0-18.0) g/dL Hct (35.0-51.0) % MCV (80.0-94.0) fL MCH (27.0-31.0) pg MCHC (33.0-37.0) g/dL RDW (11.5-14.5) % Plt Count (130-400) K/uL MPV (7.2-11.7) fL Neut % (Auto) (50.0-75.0) % Lymph % (Auto) (20.0-40.0) % Coleman % (Auto) (0.0-10.0) % Eos % (Auto) (0.0-4.0) % Baso % (Auto) (0.0-2.0) % Neut # (Auto) (1.8-7.0) K/uL Lymph # (Auto) (1.0-4.3) K/uL Coleman # (Auto) (0.0-0.8) K/uL Eos # (Auto) (0.0-0.7) K/uL Baso # (Auto) (0.0-0.2) K/uL Neutrophils % (Manual) (50-75) % Band Neutrophils % (0-2) % Lymphocytes % (Manual) Monocytes % (Manual) (0-10) % Eosinophils % (Manual) (0-4) % Platelet Estimate (NORMAL) Hypochromasia (manual) Poikilocytosis (manual Anisocytosis (manual) Target Cells PT (9.7-12.2) SECONDS INR APTT (21-34) SECONDS Sodium (132-148) mmol/L Potassium (3.6-5.2) mmol/L Chloride (98-107) mmol/L Carbon Dioxide (22-30) mmol/L Anion Gap (10-20) BUN (9-20) mg/dL Creatinine (0.8-1.5) mg/dL Est GFR ( Amer) Est GFR (Non-Af Amer) POC Glucose (mg/dL) 104 (65-110) mg/dL Random Glucose (75-110) mg/dL Lactic Acid (0.7-2.1) mmol/L Calcium (8.6-10.4) mg/dl Phosphorus (2.5-4.5) mg/dL Magnesium (1.6-2.3) mg/dL Total Bilirubin (0.2-1.3) mg/dL AST (17-59) U/L ALT (21-72) U/L Alkaline Phosphatase (38-126) U/L Ammonia 25 D (9-33) umol/L NT-Pro-B Natriuret Pep (0-450) pg/mL Total Protein (6.3-8.3) g/dL Albumin (3.5-5.0) g/dL Globulin (2.2-3.9) gm/dL Albumin/Globulin Ratio (1.0-2.1) Alpha Fetoprotein (0.0-7.5) ng/mL Ur Random Creatinine 173.4 mg/dL Ur Random Sodium 22 mmol/L 05/23/18 05/23/18 05/23/18 Range/Units 06:17 06:17 06:17 WBC 11.5 H (4.8-10.8) K/uL RBC 2.45 L (4.40-5.90) Mil/uL Hgb 8.4 L D (12.0-18.0) g/dL Hct 24.0 L (35.0-51.0) % MCV 98.0 H (80.0-94.0) fL MCH 34.4 H (27.0-31.0) pg MCHC 35.1 (33.0-37.0) g/dL RDW 18.0 H (11.5-14.5) % Plt Count 35 L (130-400) K/uL MPV 12.3 H (7.2-11.7) fL Neut % (Auto) 83.3 H (50.0-75.0) % Lymph % (Auto) 8.1 L (20.0-40.0) % Coleman % (Auto) 4.4 (0.0-10.0) % Eos % (Auto) 3.9 (0.0-4.0) % Baso % (Auto) 0.3 (0.0-2.0) % Neut # (Auto) 9.6 H (1.8-7.0) K/uL Lymph # (Auto) 0.9 L (1.0-4.3) K/uL Coleman # (Auto) 0.5 (0.0-0.8) K/uL Eos # (Auto) 0.4 (0.0-0.7) K/uL Baso # (Auto) 0.0 (0.0-0.2) K/uL Neutrophils % (Manual) 73 (50-75) % Band Neutrophils % 19 H* (0-2) % Lymphocytes % (Manual) TEST NOT PERFORMED Monocytes % (Manual) 5 (0-10) % Eosinophils % (Manual) 3 (0-4) % Platelet Estimate Decreased L (NORMAL) Hypochromasia (manual) Slight Poikilocytosis (manual Slight Anisocytosis (manual) Slight Target Cells Slight PT 41.2 H* (9.7-12.2) SECONDS INR 3.8 APTT 65 H D (21-34) SECONDS Sodium 138 (132-148) mmol/L Potassium 4.1 (3.6-5.2) mmol/L Chloride 107 (98-107) mmol/L Carbon Dioxide 21 L (22-30) mmol/L Anion Gap 14 (10-20) BUN 38 H (9-20) mg/dL Creatinine 2.0 H (0.8-1.5) mg/dL Est GFR ( Amer) 43 Est GFR (Non-Af Amer) 36 POC Glucose (mg/dL) (65-110) mg/dL Random Glucose 65 L (75-110) mg/dL Lactic Acid (0.7-2.1) mmol/L Calcium 7.4 L (8.6-10.4) mg/dl Phosphorus 4.9 H (2.5-4.5) mg/dL Magnesium 1.3 L (1.6-2.3) mg/dL Total Bilirubin 15.8 H (0.2-1.3) mg/dL AST 73 H D (17-59) U/L ALT 48 (21-72) U/L Alkaline Phosphatase 63 (38-126) U/L Ammonia (9-33) umol/L NT-Pro-B Natriuret Pep 1580 H (0-450) pg/mL Total Protein 5.2 L (6.3-8.3) g/dL Albumin 1.7 L D (3.5-5.0) g/dL Globulin 3.5 (2.2-3.9) gm/dL Albumin/Globulin Ratio 0.5 L (1.0-2.1) Alpha Fetoprotein (0.0-7.5) ng/mL Ur Random Creatinine mg/dL Ur Random Sodium mmol/L 05/23/18 05/23/18 Range/Units 06:17 06:17 WBC (4.8-10.8) K/uL RBC (4.40-5.90) Mil/uL Hgb (12.0-18.0) g/dL Hct (35.0-51.0) % MCV (80.0-94.0) fL MCH (27.0-31.0) pg MCHC (33.0-37.0) g/dL RDW (11.5-14.5) % Plt Count (130-400) K/uL MPV (7.2-11.7) fL Neut % (Auto) (50.0-75.0) % Lymph % (Auto) (20.0-40.0) % Coleman % (Auto) (0.0-10.0) % Eos % (Auto) (0.0-4.0) % Baso % (Auto) (0.0-2.0) % Neut # (Auto) (1.8-7.0) K/uL Lymph # (Auto) (1.0-4.3) K/uL Coleman # (Auto) (0.0-0.8) K/uL Eos # (Auto) (0.0-0.7) K/uL Baso # (Auto) (0.0-0.2) K/uL Neutrophils % (Manual) (50-75) % Band Neutrophils % (0-2) % Lymphocytes % (Manual) Monocytes % (Manual) (0-10) % Eosinophils % (Manual) (0-4) % Platelet Estimate (NORMAL) Hypochromasia (manual) Poikilocytosis (manual Anisocytosis (manual) Target Cells PT (9.7-12.2) SECONDS INR APTT (21-34) SECONDS Sodium (132-148) mmol/L Potassium (3.6-5.2) mmol/L Chloride (98-107) mmol/L Carbon Dioxide (22-30) mmol/L Anion Gap (10-20) BUN (9-20) mg/dL Creatinine (0.8-1.5) mg/dL Est GFR ( Amer) Est GFR (Non-Af Amer) POC Glucose (mg/dL) (65-110) mg/dL Random Glucose (75-110) mg/dL Lactic Acid 2.1 (0.7-2.1) mmol/L Calcium (8.6-10.4) mg/dl Phosphorus (2.5-4.5) mg/dL Magnesium (1.6-2.3) mg/dL Total Bilirubin (0.2-1.3) mg/dL AST (17-59) U/L ALT (21-72) U/L Alkaline Phosphatase (38-126) U/L Ammonia (9-33) umol/L NT-Pro-B Natriuret Pep (0-450) pg/mL Total Protein (6.3-8.3) g/dL Albumin (3.5-5.0) g/dL Globulin (2.2-3.9) gm/dL Albumin/Globulin Ratio (1.0-2.1) Alpha Fetoprotein 1.9 (0.0-7.5) ng/mL Ur Random Creatinine mg/dL Ur Random Sodium mmol/L Laboratory Results - last 24 hr 05/23/18 05/23/18 05/23/18 06:17 06:17 06:17 WBC 11.5 H RBC 2.45 L Hgb 8.4 L D Hct 24.0 L MCV 98.0 H MCH 34.4 H MCHC 35.1 RDW 18.0 H Plt Count 35 L MPV 12.3 H Neut % (Auto) 83.3 H Lymph % (Auto) 8.1 L Coleman % (Auto) 4.4 Eos % (Auto) 3.9 Baso % (Auto) 0.3 Neut # (Auto) 9.6 H Lymph # (Auto) 0.9 L Coleman # (Auto) 0.5 Eos # (Auto) 0.4 Baso # (Auto) 0.0 Neutrophils % (Manual) 73 Band Neutrophils % 19 H* Lymphocytes % (Manual) TEST NOT PERFORMED Monocytes % (Manual) 5 Eosinophils % (Manual) 3 Platelet Estimate Decreased L Hypochromasia (manual) Slight Poikilocytosis (manual Slight Anisocytosis (manual) Slight Target Cells Slight PT INR APTT Sodium Potassium Chloride Carbon Dioxide Anion Gap BUN Creatinine Est GFR ( Amer) Est GFR (Non-Af Amer) POC Glucose (mg/dL) Random Glucose Lactic Acid 2.1 Calcium Phosphorus Magnesium Total Bilirubin AST ALT Alkaline Phosphatase Ammonia NT-Pro-B Natriuret Pep Total Protein Albumin Globulin Albumin/Globulin Ratio Alpha Fetoprotein 1.9 Ur Random Creatinine Ur Random Sodium 05/23/18 05/23/18 05/23/18 06:17 06:17 06:17 WBC RBC Hgb Hct MCV MCH MCHC RDW Plt Count MPV Neut % (Auto) Lymph % (Auto) Coleman % (Auto) Eos % (Auto) Baso % (Auto) Neut # (Auto) Lymph # (Auto) Coleman # (Auto) Eos # (Auto) Baso # (Auto) Neutrophils % (Manual) Band Neutrophils % Lymphocytes % (Manual) Monocytes % (Manual) Eosinophils % (Manual) Platelet Estimate Hypochromasia (manual) Poikilocytosis (manual Anisocytosis (manual) Target Cells PT 41.2 H* INR 3.8 APTT 65 H D Sodium 138 Potassium 4.1 Chloride 107 Carbon Dioxide 21 L Anion Gap 14 BUN 38 H Creatinine 2.0 H Est GFR ( Amer) 43 Est GFR (Non-Af Amer) 36 POC Glucose (mg/dL) Random Glucose 65 L Lactic Acid Calcium 7.4 L Phosphorus 4.9 H Magnesium 1.3 L Total Bilirubin 15.8 H AST 73 H D ALT 48 Alkaline Phosphatase 63 Ammonia 25 D NT-Pro-B Natriuret Pep 1580 H Total Protein 5.2 L Albumin 1.7 L D Globulin 3.5 Albumin/Globulin Ratio 0.5 L Alpha Fetoprotein Ur Random Creatinine Ur Random Sodium 05/23/18 05/23/18 11:53 16:19 WBC RBC Hgb Hct MCV MCH MCHC RDW Plt Count MPV Neut % (Auto) Lymph % (Auto) Coleman % (Auto) Eos % (Auto) Baso % (Auto) Neut # (Auto) Lymph # (Auto) Coleman # (Auto) Eos # (Auto) Baso # (Auto) Neutrophils % (Manual) Band Neutrophils % Lymphocytes % (Manual) Monocytes % (Manual) Eosinophils % (Manual) Platelet Estimate Hypochromasia (manual) Poikilocytosis (manual Anisocytosis (manual) Target Cells PT INR APTT Sodium Potassium Chloride Carbon Dioxide Anion Gap BUN Creatinine Est GFR ( Amer) Est GFR (Non-Af Amer) POC Glucose (mg/dL) 104 Random Glucose Lactic Acid Calcium Phosphorus Magnesium Total Bilirubin AST ALT Alkaline Phosphatase Ammonia NT-Pro-B Natriuret Pep Total Protein Albumin Globulin Albumin/Globulin Ratio Alpha Fetoprotein Ur Random Creatinine 173.4 Ur Random Sodium 22 Review of Systems - Review of Systems All systems: reviewed and no additional remarkable complaints except (as per HPI ) Critical Care Progress Note - Prophylaxis GI Prophylaxis GI: PPI - Prophylaxis DVT Prophylaxis DVT: Not Indicated (elevated INR) - Nutrition Nutrition: Nutrition Category Date Time Status Heart Healthy Diet [DIET] Diets 05/23/18 Dinner Active Assessment/Plan - Assessment and Plan (Free Text) Assessment: This is a 47 y/o male with PMHx of Hepatic Encephalopathy 2/2 cirrhosis, Untreated Hepatitis C (HCC ruled out), pancytopenia, Splenomegaly, Nephrolithasis, Polysubstance abuse who presented to ED on 05/22 for complaints of abdominal pain for the past 3 days, associated with NBNB vomiting on 05/21 and 2 days of nonbloody diarrhea. Pt admitted to ICU with urosepsis secondary to pyelonephritis and nephrolithiasis. Neuro: - monitor for mental status changes - pt is lethargic but arousable; possibly secondary to hepatic encephalopathy as ammonia is now 55 - head ct without contrast - [facility] protocol; lorazepam - continue gabapentin - continue thiamine and folate Cardio: - maintain MAP>65 mmHg - discontinue midodrine/octreotide as per nephro as pt is likely not in hepatorenal syndrome - echocardiogram (05/23) shows ef 65-70%, moderate pulmonary hypertension, unlikely vegetations. Pulm: - CXR (05/23) shows multifocal infiltrates lower lobe distribution primarily similar findings identified previously. - pt satting well on RA - maintain spo2>92% GI: - HHD - ammonia level has increased to 55, continue lactulose. with goal of 3-4 bowel movements - Protonix for pud ppx Renal: - abdominal us (05/23) shows moderate ascites. cirrhotic manifestation of liver. Portal vein is patent. Splenomegaly. Gallbladder sludge and mild diffuse gallbladder thickening. Left renal nonobstructing stone and proximal left ureteral stone. - RACHANA, resolved - BUN/Cr is improving (42/1.3) - pt is likely not in hepatorenal failure due to marked improvement of renal function after antibiotic treatment - continue ivf with albumin - replete electrolytes as needed - f/u nephro recs ID: - urosepsis secondary to nephrolithiasis (see ct reading) - leukocytosis and bandemia are resolved (8.9/2) - pt remains afebrile - continue flagyl, merrem as per ID - urine culture is negative for growth - f/u BCx2, stool cultures, stool ova and parasite - f/u ID recs Endo: - maintain euglycemia Heme: - pt has elevated Pt and INR secondary to hepatic cirrhosis; slightly improving (35.0/3.2) - vitamin k 10 mg IV - FFP - vte ppx is contraindicated due to INR>3 Psych: - continue methadone taper as per psych - f/u psych recs PPX: protinix for pud, scds for vte Dispo: prognosis guarded Case was reviewed and discussed with attending physician, Dr. Pepe <Tc Pepe - Last Filed: 05/24/18 18:48> CCU Objective - Vital Signs / Intake & Output Intake and Output (Last 8hrs): Intake & Output 05/24/18 05/24/18 05/24/18 06:59 14:59 22:59 Intake Total 1440 1235 460 Output Total 750 700 200 Balance 690 535 260 Weight 138 lb 14.4 oz Intake: Intake, IV Amount 1040 840 160 Left Distal Port Forearm 240 240 60 Left Forearm 800 600 100 Oral 400 395 Blood Product 300 Output: Urine 750 700 200 Urine, Voided 750 700 200 Other: # Bowel Movements 1 - Medications Active Medications: Active Medications Generic Name Dose Route Start Last Admin Trade Name Violetta PRN Reason Stop Dose Admin Folic Acid 1 mg 05/23/18 10:00 05/24/18 11:21 Folic Acid PO 1 mg DAILY ROBYN Administration Gabapentin 300 mg 05/23/18 10:00 05/24/18 11:21 Neurontin PO 300 mg BID ROBYN Administration Meropenem 1 gm/ Sodium 100 mls @ 100 mls/hr 05/23/18 09:00 05/24/18 16:27 Chloride IVPB 100 mls/hr Q8H ROBYN Administration Albumin Human 100 mls @ 200 mls/hr 05/23/18 10:00 05/24/18 11:13 Albumin Human 25% (12.5 Gm/50 Ml) IV 200 mls/hr DAILY ROBYN Administration Albumin Human 100 mls @ 200 mls/hr 05/23/18 10:00 05/24/18 11:28 Albumin Human 25% (12.5 Gm/50 Ml) IV 200 mls/hr DAILY ROBYN Administration Sodium Chloride 1,000 mls @ 100 mls/hr 05/23/18 09:30 05/24/18 15:53 Sodium Chloride 0.9% IV 100 mls/hr .Q10H ROBYN Administration Dextrose 1,000 mls @ 30 mls/hr 05/23/18 12:00 05/23/18 11:30 Dextrose 10% In Water IV 30 mls/hr .Q24H ROBYN Administration Metronidazole 500 mg in 100 mls @ 100 mls/hr 05/23/18 11:30 05/24/18 12:10 Flagyl IVPB 100 mls/hr Q8H ROBYN Administration Protocol Lactulose 30 gm 05/23/18 10:00 05/24/18 14:22 Enulose PO 30 gm TID ROBYN Administration Lorazepam 1 mg 05/24/18 09:00 05/24/18 14:04 Ativan PO 05/28/18 08:59 Not Given TID ROBYN Taper Methadone HCl 15 mg 05/24/18 09:00 05/24/18 09:01 Methadone PO 05/27/18 08:59 15 mg Q24H ROBYN Administration Taper Mirtazapine 15 mg 05/24/18 22:00 Remeron PO HS ROBYN Pantoprazole Sodium 40 mg 05/23/18 10:00 05/24/18 11:16 Protonix Inj IVP 40 mg Q12H ROBYN Administration Phytonadione 10 mg 05/23/18 10:00 05/24/18 11:16 Vitamin K Tab PO 05/26/18 10:01 10 mg DAILY ROBYN Administration Thiamine HCl 100 mg 05/23/18 10:00 05/24/18 11:16 Vitamin B1 Tab PO 100 mg DAILY ROBYN Administration - Patient Studies Lab Studies: Microbiology Studies 05/22/18 09:30 MRSA Culture (Admit) - Final Nose MRSA NOT DETECTED 05/22/18 06:41 Blood Culture - Preliminary Blood-Venous NO GROWTH AFTER 24 HOURS 05/22/18 06:41 Blood Culture - Preliminary Blood-Venous NO GROWTH AFTER 24 HOURS Lab Studies 05/24/18 05/24/18 05/24/18 Range/Units 16:19 11:25 11:03 WBC (4.8-10.8) K/uL RBC (4.40-5.90) Mil/uL Hgb (12.0-18.0) g/dL Hct (35.0-51.0) % MCV (80.0-94.0) fL MCH (27.0-31.0) pg MCHC (33.0-37.0) g/dL RDW (11.5-14.5) % Plt Count (130-400) K/uL MPV (7.2-11.7) fL Neut % (Auto) (50.0-75.0) % Lymph % (Auto) (20.0-40.0) % Coleman % (Auto) (0.0-10.0) % Eos % (Auto) (0.0-4.0) % Baso % (Auto) (0.0-2.0) % Neut # (Auto) (1.8-7.0) K/uL Lymph # (Auto) (1.0-4.3) K/uL Coleman # (Auto) (0.0-0.8) K/uL Eos # (Auto) (0.0-0.7) K/uL Baso # (Auto) (0.0-0.2) K/uL Neutrophils % (Manual) (50-75) % Band Neutrophils % (0-2) % Lymphocytes % (Manual) (20-40) % Monocytes % (Manual) (0-10) % Eosinophils % (Manual) (0-4) % Platelet Estimate (NORMAL) Hypochromasia (manual) Poikilocytosis (manual Anisocytosis (manual) Microcytosis (manual) Target Cells Tear Drop Cells PT (9.7-12.2) SECONDS INR APTT (21-34) SECONDS Sodium (132-148) mmol/L Potassium (3.6-5.2) mmol/L Chloride (98-107) mmol/L Carbon Dioxide (22-30) mmol/L Anion Gap (10-20) BUN (9-20) mg/dL Creatinine (0.8-1.5) mg/dL Est GFR ( Amer) Est GFR (Non-Af Amer) POC Glucose (mg/dL) 117 H 110 (65-110) mg/dL Random Glucose (75-110) mg/dL Lactic Acid (0.7-2.1) mmol/L Calcium (8.6-10.4) mg/dl Phosphorus (2.5-4.5) mg/dL Magnesium (1.6-2.3) mg/dL Total Bilirubin (0.2-1.3) mg/dL AST (17-59) U/L ALT (21-72) U/L Alkaline Phosphatase (38-126) U/L Ammonia (9-33) umol/L Total Protein (6.3-8.3) g/dL Albumin (3.5-5.0) g/dL Globulin (2.2-3.9) gm/dL Albumin/Globulin Ratio (1.0-2.1) Blood Type A POSITIVE Antibody Screen Negative 05/24/18 05/24/18 05/24/18 Range/Units 08:01 06:07 06:07 WBC (4.8-10.8) K/uL RBC (4.40-5.90) Mil/uL Hgb (12.0-18.0) g/dL Hct (35.0-51.0) % MCV (80.0-94.0) fL MCH (27.0-31.0) pg MCHC (33.0-37.0) g/dL RDW (11.5-14.5) % Plt Count (130-400) K/uL MPV (7.2-11.7) fL Neut % (Auto) (50.0-75.0) % Lymph % (Auto) (20.0-40.0) % Coleman % (Auto) (0.0-10.0) % Eos % (Auto) (0.0-4.0) % Baso % (Auto) (0.0-2.0) % Neut # (Auto) (1.8-7.0) K/uL Lymph # (Auto) (1.0-4.3) K/uL Coleman # (Auto) (0.0-0.8) K/uL Eos # (Auto) (0.0-0.7) K/uL Baso # (Auto) (0.0-0.2) K/uL Neutrophils % (Manual) (50-75) % Band Neutrophils % (0-2) % Lymphocytes % (Manual) (20-40) % Monocytes % (Manual) (0-10) % Eosinophils % (Manual) (0-4) % Platelet Estimate (NORMAL) Hypochromasia (manual) Poikilocytosis (manual Anisocytosis (manual) Microcytosis (manual) Target Cells Tear Drop Cells PT (9.7-12.2) SECONDS INR APTT (21-34) SECONDS Sodium (132-148) mmol/L Potassium (3.6-5.2) mmol/L Chloride (98-107) mmol/L Carbon Dioxide (22-30) mmol/L Anion Gap (10-20) BUN (9-20) mg/dL Creatinine (0.8-1.5) mg/dL Est GFR ( Amer) Est GFR (Non-Af Amer) POC Glucose (mg/dL) 98 (65-110) mg/dL Random Glucose (75-110) mg/dL Lactic Acid 1.4 (0.7-2.1) mmol/L Calcium (8.6-10.4) mg/dl Phosphorus (2.5-4.5) mg/dL Magnesium (1.6-2.3) mg/dL Total Bilirubin (0.2-1.3) mg/dL AST (17-59) U/L ALT (21-72) U/L Alkaline Phosphatase (38-126) U/L Ammonia 55 H D (9-33) umol/L Total Protein (6.3-8.3) g/dL Albumin (3.5-5.0) g/dL Globulin (2.2-3.9) gm/dL Albumin/Globulin Ratio (1.0-2.1) Blood Type Antibody Screen 05/24/18 05/24/18 05/24/18 Range/Units 06:07 06:07 06:07 WBC 8.9 (4.8-10.8) K/uL RBC 2.65 L (4.40-5.90) Mil/uL Hgb 9.2 L (12.0-18.0) g/dL Hct 26.0 L (35.0-51.0) % MCV 98.2 H (80.0-94.0) fL MCH 34.8 H (27.0-31.0) pg MCHC 35.4 (33.0-37.0) g/dL RDW 17.8 H (11.5-14.5) % Plt Count 36 L (130-400) K/uL MPV 11.4 (7.2-11.7) fL Neut % (Auto) 82.4 H (50.0-75.0) % Lymph % (Auto) 6.1 L (20.0-40.0) % Coleman % (Auto) 7.4 (0.0-10.0) % Eos % (Auto) 3.7 (0.0-4.0) % Baso % (Auto) 0.4 (0.0-2.0) % Neut # (Auto) 7.3 H (1.8-7.0) K/uL Lymph # (Auto) 0.5 L (1.0-4.3) K/uL Coleman # (Auto) 0.7 (0.0-0.8) K/uL Eos # (Auto) 0.3 (0.0-0.7) K/uL Baso # (Auto) 0.0 (0.0-0.2) K/uL Neutrophils % (Manual) 79 H (50-75) % Band Neutrophils % 2 (0-2) % Lymphocytes % (Manual) 6 L (20-40) % Monocytes % (Manual) 10 (0-10) % Eosinophils % (Manual) 3 (0-4) % Platelet Estimate Decreased L (NORMAL) Hypochromasia (manual) Slight Poikilocytosis (manual Slight Anisocytosis (manual) Slight Microcytosis (manual) Slight Target Cells Slight Tear Drop Cells Slight PT 35.0 H* D (9.7-12.2) SECONDS INR 3.2 APTT 59 H D (21-34) SECONDS Sodium 138 (132-148) mmol/L Potassium 4.4 (3.6-5.2) mmol/L Chloride 109 H (98-107) mmol/L Carbon Dioxide 22 (22-30) mmol/L Anion Gap 11 (10-20) BUN 42 H (9-20) mg/dL Creatinine 1.3 (0.8-1.5) mg/dL Est GFR ( Amer) > 60 Est GFR (Non-Af Amer) 59 POC Glucose (mg/dL) (65-110) mg/dL Random Glucose 96 (75-110) mg/dL Lactic Acid (0.7-2.1) mmol/L Calcium 7.5 L (8.6-10.4) mg/dl Phosphorus 3.8 (2.5-4.5) mg/dL Magnesium 2.0 (1.6-2.3) mg/dL Total Bilirubin 17.6 H (0.2-1.3) mg/dL AST 85 H (17-59) U/L ALT 45 (21-72) U/L Alkaline Phosphatase 64 (38-126) U/L Ammonia (9-33) umol/L Total Protein 5.5 L (6.3-8.3) g/dL Albumin 2.0 L (3.5-5.0) g/dL Globulin 3.5 (2.2-3.9) gm/dL Albumin/Globulin Ratio 0.6 L (1.0-2.1) Blood Type Antibody Screen Laboratory Results - last 24 hr 05/24/18 05/24/18 05/24/18 06:07 06:07 06:07 WBC 8.9 RBC 2.65 L Hgb 9.2 L Hct 26.0 L MCV 98.2 H MCH 34.8 H MCHC 35.4 RDW 17.8 H Plt Count 36 L MPV 11.4 Neut % (Auto) 82.4 H Lymph % (Auto) 6.1 L Coleman % (Auto) 7.4 Eos % (Auto) 3.7 Baso % (Auto) 0.4 Neut # (Auto) 7.3 H Lymph # (Auto) 0.5 L Coleman # (Auto) 0.7 Eos # (Auto) 0.3 Baso # (Auto) 0.0 Neutrophils % (Manual) 79 H Band Neutrophils % 2 Lymphocytes % (Manual) 6 L Monocytes % (Manual) 10 Eosinophils % (Manual) 3 Platelet Estimate Decreased L Hypochromasia (manual) Slight Poikilocytosis (manual Slight Anisocytosis (manual) Slight Microcytosis (manual) Slight Target Cells Slight Tear Drop Cells Slight PT 35.0 H* D INR 3.2 APTT 59 H D Sodium 138 Potassium 4.4 Chloride 109 H Carbon Dioxide 22 Anion Gap 11 BUN 42 H Creatinine 1.3 Est GFR ( Amer) > 60 Est GFR (Non-Af Amer) 59 POC Glucose (mg/dL) Random Glucose 96 Lactic Acid Calcium 7.5 L Phosphorus 3.8 Magnesium 2.0 Total Bilirubin 17.6 H AST 85 H ALT 45 Alkaline Phosphatase 64 Ammonia Total Protein 5.5 L Albumin 2.0 L Globulin 3.5 Albumin/Globulin Ratio 0.6 L Blood Type Antibody Screen 05/24/18 05/24/18 05/24/18 06:07 06:07 08:01 WBC RBC Hgb Hct MCV MCH MCHC RDW Plt Count MPV Neut % (Auto) Lymph % (Auto) Coleman % (Auto) Eos % (Auto) Baso % (Auto) Neut # (Auto) Lymph # (Auto) Coleman # (Auto) Eos # (Auto) Baso # (Auto) Neutrophils % (Manual) Band Neutrophils % Lymphocytes % (Manual) Monocytes % (Manual) Eosinophils % (Manual) Platelet Estimate Hypochromasia (manual) Poikilocytosis (manual Anisocytosis (manual) Microcytosis (manual) Target Cells Tear Drop Cells PT INR APTT Sodium Potassium Chloride Carbon Dioxide Anion Gap BUN Creatinine Est GFR ( Amer) Est GFR (Non-Af Amer) POC Glucose (mg/dL) 98 Random Glucose Lactic Acid 1.4 Calcium Phosphorus Magnesium Total Bilirubin AST ALT Alkaline Phosphatase Ammonia 55 H D Total Protein Albumin Globulin Albumin/Globulin Ratio Blood Type Antibody Screen 05/24/18 05/24/18 05/24/18 11:03 11:25 16:19 WBC RBC Hgb Hct MCV MCH MCHC RDW Plt Count MPV Neut % (Auto) Lymph % (Auto) [place] % (Auto) Eos % (Auto) Baso % (Auto) Neut # (Auto) Lymph # (Auto) [place] # (Auto) Eos # (Auto) Baso # (Auto) Neutrophils % (Manual) Band Neutrophils % Lymphocytes % (Manual) Monocytes % (Manual) Eosinophils % (Manual) Platelet Estimate Hypochromasia (manual) Poikilocytosis (manual Anisocytosis (manual) Microcytosis (manual) Target Cells Tear Drop Cells PT INR APTT Sodium Potassium Chloride Carbon Dioxide Anion Gap BUN Creatinine Est GFR ( Amer) Est GFR (Non-Af Amer) POC Glucose (mg/dL) 110 117 H Random Glucose Lactic Acid Calcium Phosphorus Magnesium Total Bilirubin AST ALT Alkaline Phosphatase Ammonia Total Protein Albumin Globulin Albumin/Globulin Ratio Blood Type A POSITIVE Antibody Screen Negative Critical Care Progress Note - Nutrition Nutrition: Nutrition Category Date Time Status Heart Healthy Diet [DIET] Diets 05/23/18 Dinner Active Attending/Attestation - Attestation I have personally seen and examined this patient.: Yes I have fully participated in the care of the patient.: Yes I have reviewed all pertinent clinical information: Yes Notes (Text): 05/24/18 18:47 the patient seen and examined in the intensive care unit. Assessment and plan as per resident note
[2018-05-24 06:32] LABS: BASO % 0.4 % (0.0-2.0); EOS # 0.3 K/uL (0.0-0.7); EOS % 3.7 % (0.0-4.0); HEMOGLOBIN 9.2 g/dL (12.0-18.0); INR 3.2; LYMPH # 0.5 K/uL (1.0-4.3); LYMPH % 6.1 % (20.0-40.0); MEAN CELL VOLUME 98.2 fL (80.0-94.0); MEAN CORPUSCULAR HEMOGLOBIN 34.8 pg (27.0-31.0); MEAN CORPUSCULAR HGB CONC 35.4 g/dL (33.0-37.0); MEAN PLATELET VOLUME 11.4 fL (7.2-11.7); MONO # 0.7 K/uL (0.0-0.8); MONO % 7.4 % (0.0-10.0); NEUT # 7.3 K/uL (1.8-7.0); NEUT % 82.4 % (50.0-75.0); PLATELET COUNT 36 K/uL (130-400); RBC 2.65 Mil/uL (4.40-5.90); RED CELL DISTRIBUTION WIDTH 17.8 % (11.5-14.5); WHITE BLOOD COUNT 8.9 K/uL (4.8-10.8)
[2018-05-24 06:51] LABS: ALB/GLOB RATIO 0.6 (1.0-2.1); ALT/SGPT 45 U/L (21-72); AST/SGOT 85 U/L (17-59); BLOOD UREA NITROGEN 42 mg/dL (9-20); CALCIUM 7.5 mg/dl (8.6-10.4); GFR AFRICAN-AMERICAN > 60; GFR NON-AFRICAN AMERICAN 59
[2018-05-24 08:18] LABS: BANDS 2 % (0-2); EOSINOPHIL 3 % (0-4); LYMPHOCYTE 6 % (20-40); MONOCYTE 10 % (0-10); NEUTROPHIL 79 % (50-75); PLATELET ESTIMATE DECREASED (NORMAL); TOTAL CELLS COUNTED 100
[2018-05-24 08:19] LABS: ANISOCYTOSIS SLIGHT; HYPOCHROMIC SLIGHT; POIKILOCYTOSIS SLIGHT; TARGET CELLS SLIGHT
[2018-05-24 08:20] LABS: MICROCYTOSIS SLIGHT; TEARDROP CELLS SLIGHT
--- NOTE | 2018-05-24 10:56 | CP.PCM.PN ---
Subjective - Date & Time of Evaluation Date of Evaluation: 05/24/18 Time of Evaluation: 10:53 - Subjective Subjective: Nephrology Consultation Note covering for Dr Tom: Assessment:critical Acute Kidney Injury (N17.9) likely multifactorial due to sepsis/shock/intravasc volume depletion, Decompensated liver disease also could contribute: IMPROVING lactic acidosis left urteral stone with UTI s/p stent pancolitis cirrhosis with ascites and splenomegaly anemia and thrombocytopenia with coagulopathy active substance abuse with heroine/etoh, hep C + AMS Plan No acute need for renal replacement therapy at this time. Maintain hemodynamics stable. Avoid hypotension. Patient not on ACEI/ARB due to recent RACHANA. agree with IVF and or IV albumin while HRS is a possibility, it is less likely as we have other reasons to explain his RACHANA which is improving. Hence, empiric octreotide and midodrine can be d/c now Monitor Input/Output, daily weights and renal function with basic metabolic panel continue with antibiotics and ID team following Dose meds/antibiotics for improved GFR. Glycemic control Further work up/management as per primary team Thanks for allowing me to participate in care of your patient. Will follow patient with you. Please call if any Qs. had d/w team Dr Zia Jordan Office: [phone] source of Info: EMR Chief Complaint; unable Reason for consult: Acute Kidney Injury HPI: Pt is a 47 M with hx of chronic Hep C, kidney stone (Brushite 80% with CaOx 20%) and active substance abuse presented with complaints of pain abdomen for 3 days. he was found to have pancolitis sepsis, UTI with kidney stone. renal consult for RACHANA eval no known OTC/herbal meds or NSAIDs No known recent iodinated contrast exposure. Noted obvious episodes of low BP. pt unable to provide ROS ROS: pt unable to provide Physical Examination: General Appearance: Comfortable, in no acute respiratory distress, ill appearing , sleepy/lethargic Vitals reviewed and noted as below Head; Atraumatic, normocephalic ENT: unable EYES: Pupils are equal, round and reactive to light accommodation. Eye muscles and extraocular movement intact. Sclera is icteric. Neck; supple no lymphadenopathy, no thyromegaly or bruit Lungs: Normal respiratory rate/effort. Breath sounds bilateral equal and clear anteriorly Heart: Increased rate. s1s2 normal. No rub or gallop. Extremities: no edema. No varicose veins Neurological: Patient is sleepy/lethargic Skin: Warm and dry. Normal turgor. No rash. Palpitation: Normal elasticity for age Abdomen: Abdomen is soft/distended. Bowel sounds +. There is abdominal tenderness, no guarding/rigidity no organomegaly Psych: unable MSK: no joint tenderness or swelling. Digits and nails normal, no deformity : kidney or bladder not palpable but exam limited Labs/imaging reviewed. Past medical history, past surgical history, family history, social history, allergy reviewed and noted as below Family hx: no hx of CKD. Rest non-contributory work up: reviewed UA 3+ blood and RBCs with bacteria Fena0.2% Objective - Vital Signs/Intake and Output Vital Signs (last 24 hours): Temp Pulse Resp BP Pulse Ox 97.6 F 85 12 110/59 L 98 05/23/18 16:00 05/24/18 05:20 05/24/18 05:20 05/24/18 05:20 05/24/18 05:20 Intake and Output: 05/24/18 05/24/18 06:59 18:59 Intake Total 2060 335 Output Total 1200 Balance 860 335 - Medications Medications: Current Medications Folic Acid (Folic Acid) 1 mg PO DAILY [facility] [place] Last Admin: 05/23/18 10:06 Dose: 1 mg Gabapentin (Neurontin) 300 mg PO BID [facility] [place] Last Admin: 05/23/18 17:28 Dose: 300 mg Meropenem 1 gm/ Sodium (Chloride) 100 mls @ 100 mls/hr IVPB Q8H [facility] [place] Last Admin: 05/24/18 08:30 Dose: 100 mls/hr Albumin Human (Albumin Human 25% (12.5 Gm/50 Ml)) 100 mls @ 200 mls/hr IV DAILY [facility] [place] Last Admin: 05/23/18 10:05 Dose: 200 mls/hr Albumin Human (Albumin Human 25% (12.5 Gm/50 Ml)) 100 mls @ 200 mls/hr IV DAILY [facility] [place] Last Admin: 05/23/18 11:18 Dose: 200 mls/hr Sodium Chloride (Sodium Chloride 0.9%) 1,000 mls @ 100 mls/hr IV .Q10H [facility] [place] Last Admin: 05/24/18 06:01 Dose: Not Given Dextrose (Dextrose 10% In Water) 1,000 mls @ 30 mls/hr IV .Q24H [facility] [place] Last Admin: 05/23/18 11:30 Dose: 30 mls/hr Metronidazole (Flagyl) 500 mg in 100 mls @ 100 mls/hr IVPB Q8H [facility] PRN Reason: Protocol Last Admin: 05/24/18 03:00 Dose: 100 mls/hr Lactulose (Enulose) 30 gm PO TID [facility] [place] Last Admin: 05/23/18 17:10 Dose: Not Given Lorazepam (Ativan) 1 mg PO TID [facility] PRN Reason: Taper Stop: 05/28/18 08:59 Methadone HCl (Methadone) 15 mg PO Q24H [facility] PRN Reason: Taper Stop: 05/27/18 08:59 Last Admin: 05/24/18 09:01 Dose: 15 mg Midodrine (Proamatine) 7.5 mg PO TID [facility] [place] Last Admin: 05/23/18 17:28 Dose: 7.5 mg Octreotide Acetate (Sandostatin) 200 mcg SC Q8H [facility] [place] Last Admin: 05/24/18 09:07 Dose: 200 mcg Pantoprazole Sodium (Protonix Inj) 40 mg IVP Q12H [facility] [place] Last Admin: 05/23/18 22:12 Dose: 40 mg Phytonadione (Vitamin K Tab) 10 mg PO DAILY [facility] Stop: 05/26/18 10:01 Last Admin: 05/23/18 10:10 Dose: 10 mg Thiamine HCl (Vitamin B1 Tab) 100 mg PO DAILY [facility] [place] Last Admin: 05/23/18 10:06 Dose: 100 mg - Labs Labs: 05/24/18 06:07 05/24/18 06:07 PT 35.0 SECONDS (9.7-12.2) H* D 05/24/18 06:07 INR 3.2 05/24/18 06:07 APTT 59 SECONDS (21-34) H D 05/24/18 06:07
--- NOTE | 2018-05-24 12:00 | CP.PCM.PN ---
Subjective - Date & Time of Evaluation Date of Evaluation: 05/24/18 Time of Evaluation: 06:00 - Subjective Subjective: iv rx in progress afeb weak Objective - Vital Signs/Intake and Output Vital Signs (last 24 hours): Temp Pulse Resp BP Pulse Ox 97.6 F 85 12 110/59 L 98 05/23/18 16:00 05/24/18 05:20 05/24/18 05:20 05/24/18 05:20 05/24/18 05:20 Intake and Output: 05/24/18 05/24/18 06:59 18:59 Intake Total 2060 795 Output Total 1200 500 Balance 860 295 - Medications Medications: Current Medications Folic Acid (Folic Acid) 1 mg PO DAILY [facility] Last Admin: 05/24/18 11:21 Dose: 1 mg Gabapentin (Neurontin) 300 mg PO BID [facility] Last Admin: 05/24/18 11:21 Dose: 300 mg Meropenem 1 gm/ Sodium (Chloride) 100 mls @ 100 mls/hr IVPB Q8H [facility] Last Admin: 05/24/18 08:30 Dose: 100 mls/hr Albumin Human (Albumin Human 25% (12.5 Gm/50 Ml)) 100 mls @ 200 mls/hr IV DAILY [facility] Last Admin: 05/24/18 11:13 Dose: 200 mls/hr Albumin Human (Albumin Human 25% (12.5 Gm/50 Ml)) 100 mls @ 200 mls/hr IV DAILY [facility] Last Admin: 05/24/18 11:28 Dose: 200 mls/hr Sodium Chloride (Sodium Chloride 0.9%) 1,000 mls @ 100 mls/hr IV .Q10H [facility] Last Admin: 05/24/18 06:01 Dose: Not Given Dextrose (Dextrose 10% In Water) 1,000 mls @ 30 mls/hr IV .Q24H [facility] Last Admin: 05/23/18 11:30 Dose: 30 mls/hr Metronidazole (Flagyl) 500 mg in 100 mls @ 100 mls/hr IVPB Q8H [facility] PRN Reason: Protocol Last Admin: 05/24/18 03:00 Dose: 100 mls/hr Lactulose (Enulose) 30 gm PO TID [facility] Last Admin: 05/24/18 11:21 Dose: 30 gm Lorazepam (Ativan) 1 mg PO TID [facility] PRN Reason: Taper Stop: 05/28/18 08:59 Last Admin: 05/24/18 11:16 Dose: 1 mg Methadone HCl (Methadone) 15 mg PO Q24H [facility] PRN Reason: Taper Stop: 05/27/18 08:59 Last Admin: 05/24/18 09:01 Dose: 15 mg Midodrine (Proamatine) 7.5 mg PO TID [facility] Last Admin: 05/24/18 11:00 Dose: 7.5 mg Octreotide Acetate (Sandostatin) 200 mcg SC Q8H [facility] Last Admin: 05/24/18 09:07 Dose: 200 mcg Pantoprazole Sodium (Protonix Inj) 40 mg IVP Q12H [facility] Last Admin: 05/24/18 11:16 Dose: 40 mg Phytonadione (Vitamin K Tab) 10 mg PO DAILY [facility] Stop: 05/26/18 10:01 Last Admin: 05/24/18 11:16 Dose: 10 mg Thiamine HCl (Vitamin B1 Tab) 100 mg PO DAILY [facility] Last Admin: 05/24/18 11:16 Dose: 100 mg - Labs Labs: 05/24/18 06:07 05/24/18 06:07 PT 35.0 SECONDS (9.7-12.2) H* D 05/24/18 06:07 INR 3.2 05/24/18 06:07 APTT 59 SECONDS (21-34) H D 05/24/18 06:07 - Constitutional Appears: Confused, Chronically Ill - Head Exam Head Exam: NORMOCEPHALIC - Eye Exam Eye Exam: absent: Scleral icterus - ENT Exam ENT Exam: Mucous Membranes Dry - Neck Exam Neck Exam: absent: Lymphadenopathy - Respiratory Exam Respiratory Exam: Decreased Breath Sounds - Cardiovascular Exam Cardiovascular Exam: REGULAR RHYTHM - GI/Abdominal Exam GI & Abdominal Exam: Distended Assessment and Plan (1) Colitis Status: Acute (2) Renal stone Status: Acute (3) Severe sepsis Status: Acute (4) UTI (urinary tract infection) Status: Acute (5) Abdominal pain Status: Acute
--- NOTE | 2018-05-24 13:54 | CP.PCM.CON ---
History of Present Illness - History of Present Illness History of Present Illness: Palliative consult requested by Doctor Pepe for goals of care discussion Patient is a 47 yo male admitted from home with abdominal pain X 4 days. Per patient's report on admission, pain was localized to area of umbilical and inguinal hernia. Patient took Naprosyn PO X 1 over the night, before coming to hospital. Pain was fallowed by NBNB vomiting. Per patient's mother whom I spoke to today , said that patient did not want to come to hospital at first. She was about to call police to force him to , than he agreed to come to ER. Per mother, this is patient's at least 5th time coming here with same abdominal pain. She admits being aware of patient's use of IV drugs and ETOH. CT scan chest and abdomen as significant for hepatic cirrhosis, ascites and pancollitis. Sandostatin, Merrem, Flagyl, and Albumin IV stated , among all other meds. Alb 1.7, Total Ruperto 17.6, platelets low at 36. Frozen plazma transfused. Vit K injections and Sandostatin on board. PMH: Hepatic encephalopathy, cirrhosis, untreated Hep C, polysubstance abuse, HIV, ETOH Soc. Hx: , lives with mother, has two children but no close contact with them Fam. Hx: denied by mother Review of Systems - Review of Systems All systems: reviewed and no additional remarkable complaints except Review of Systems: ROS unobtainable from patient due to lethargy. ROS obtained from nursing. Per nursing, patient has been lethargic and sleeping most of time. Past Patient History - Infectious Disease Hx of Infectious Diseases: None - Tetanus Immunizations Tetanus Immunization: Unknown - Past Medical History & Family History Past Medical History?: Yes - Past Social History Smoking Status: Heavy Smoker > 10 Cigarettes Daily Drugs: Opiates Home Situation {Lives}: With Family - CARDIAC Hx Hypertension: No - PULMONARY Hx Asthma: Yes - NEUROLOGICAL Hx Seizures: No - HEENT Hx HEENT Problems: No - RENAL Hx Chronic Kidney Disease: No Hx Kidney Stones: Yes - ENDOCRINE/METABOLIC Hx Endocrine Disorders: No - HEMATOLOGICAL/ONCOLOGICAL Hx Human Immunodeficiency Virus (HIV): No - INTEGUMENTARY Hx Dermatological Problems: No - MUSCULOSKELETAL/RHEUMATOLOGICAL Hx Arthritis: Yes Hx Fractures: Yes (right arm) - GASTROINTESTINAL Other/Comment: right groin hernia - GENITOURINARY/GYNECOLOGICAL Hx Sexually Transmitted Disorders: No - PSYCHIATRIC Hx Substance Use: Yes - SURGICAL HISTORY Hx Coronary Stent: No - ANESTHESIA Hx Anesthesia: Yes Hx Anesthesia Reactions: No Hx Malignant Hyperthermia: No Meds Allergies/Adverse Reactions: Allergies Allergy/AdvReac Type Severity Reaction Status Date / Time No Known Allergies Allergy Verified 05/22/18 17:34 - Medications Medications: Current Medications Folic Acid (Folic Acid) 1 mg PO DAILY [facility] Last Admin: 05/24/18 11:21 Dose: 1 mg Gabapentin (Neurontin) 300 mg PO BID [facility] Last Admin: 05/24/18 11:21 Dose: 300 mg Meropenem 1 gm/ Sodium (Chloride) 100 mls @ 100 mls/hr IVPB Q8H [facility] Last Admin: 05/24/18 08:30 Dose: 100 mls/hr Albumin Human (Albumin Human 25% (12.5 Gm/50 Ml)) 100 mls @ 200 mls/hr IV DAILY [facility] Last Admin: 05/24/18 11:13 Dose: 200 mls/hr Albumin Human (Albumin Human 25% (12.5 Gm/50 Ml)) 100 mls @ 200 mls/hr IV DAILY [facility] Last Admin: 05/24/18 11:28 Dose: 200 mls/hr Sodium Chloride (Sodium Chloride 0.9%) 1,000 mls @ 100 mls/hr IV .Q10H [facility] Last Admin: 05/24/18 06:01 Dose: Not Given Dextrose (Dextrose 10% In Water) 1,000 mls @ 30 mls/hr IV .Q24H [facility] Last Admin: 05/23/18 11:30 Dose: 30 mls/hr Metronidazole (Flagyl) 500 mg in 100 mls @ 100 mls/hr IVPB Q8H [facility] PRN Reason: Protocol Last Admin: 05/24/18 12:10 Dose: 100 mls/hr Lactulose (Enulose) 30 gm PO TID [facility] Last Admin: 05/24/18 11:21 Dose: 30 gm Lorazepam (Ativan) 1 mg PO TID [facility] PRN Reason: Taper Stop: 05/28/18 08:59 Last Admin: 05/24/18 11:16 Dose: 1 mg Methadone HCl (Methadone) 15 mg PO Q24H [facility] PRN Reason: Taper Stop: 05/27/18 08:59 Last Admin: 05/24/18 09:01 Dose: 15 mg Pantoprazole Sodium (Protonix Inj) 40 mg IVP Q12H [facility] Last Admin: 05/24/18 11:16 Dose: 40 mg Phytonadione (Vitamin K Tab) 10 mg PO DAILY [facility] Stop: 05/26/18 10:01 Last Admin: 05/24/18 11:16 Dose: 10 mg Thiamine HCl (Vitamin B1 Tab) 100 mg PO DAILY [facility] Last Admin: 05/24/18 11:16 Dose: 100 mg Physical Exam - Constitutional Appears: Chronically Ill - Head Exam Head Exam: ATRAUMATIC, NORMAL INSPECTION, NORMOCEPHALIC - Eye Exam Eye Exam: EOMI, Normal appearance, PERRL, Scleral icterus Pupil Exam: NORMAL ACCOMODATION, PERRL - ENT Exam ENT Exam: Mucous Membranes Dry - Neck Exam Neck exam: Positive for: Normal Inspection - Respiratory Exam Respiratory Exam: Decreased Breath Sounds, NORMAL BREATHING PATTERN - Cardiovascular Exam Cardiovascular Exam: Tachycardia - GI/Abdominal Exam GI & Abdominal Exam: Firm, Guarding - Rectal Exam Rectal Exam: Deferred - Extremities Exam Extremities exam: Positive for: pedal edema - Back Exam Back exam: NORMAL INSPECTION - Neurological Exam Neurological exam: Motor Sensory Deficit - Psychiatric Exam Psychiatric exam: Flat Affect - Skin Skin Exam: Dry, Pallor Results - Vital Signs Recent Vital Signs: Last Vital Signs Temp 97.6 F 05/23/18 16:00 Pulse 85 05/24/18 05:20 Resp 12 05/24/18 05:20 BP 110/59 L 05/24/18 05:20 Pulse Ox 98 05/24/18 05:20 - Labs Result Diagrams: 05/24/18 06:07 05/24/18 06:07 Labs: Laboratory Results - last 24 hr 05/23/18 05/24/18 05/24/18 16:19 06:07 06:07 WBC 8.9 RBC 2.65 L Hgb 9.2 L Hct 26.0 L MCV 98.2 H MCH 34.8 H MCHC 35.4 RDW 17.8 H Plt Count 36 L MPV 11.4 Neut % (Auto) 82.4 H Lymph % (Auto) 6.1 L [place] % (Auto) 7.4 Eos % (Auto) 3.7 Baso % (Auto) 0.4 Neut # (Auto) 7.3 H Lymph # (Auto) 0.5 L [place] # (Auto) 0.7 Eos # (Auto) 0.3 Baso # (Auto) 0.0 Neutrophils % (Manual) 79 H Band Neutrophils % 2 Lymphocytes % (Manual) 6 L Monocytes % (Manual) 10 Eosinophils % (Manual) 3 Platelet Estimate Decreased L Hypochromasia (manual) Slight Poikilocytosis (manual Slight Anisocytosis (manual) Slight Microcytosis (manual) Slight Target Cells Slight Tear Drop Cells Slight PT 35.0 H* D INR 3.2 APTT 59 H D Sodium Potassium Chloride Carbon Dioxide Anion Gap BUN Creatinine Est GFR ( Amer) Est GFR (Non-Af Amer) POC Glucose (mg/dL) 104 Random Glucose Lactic Acid Calcium Phosphorus Magnesium Total Bilirubin AST ALT Alkaline Phosphatase Ammonia Total Protein Albumin Globulin Albumin/Globulin Ratio Blood Type Antibody Screen 05/24/18 05/24/18 05/24/18 06:07 06:07 06:07 WBC RBC Hgb Hct MCV MCH MCHC RDW Plt Count MPV Neut % (Auto) Lymph % (Auto) [place] % (Auto) Eos % (Auto) Baso % (Auto) Neut # (Auto) Lymph # (Auto) [place] # (Auto) Eos # (Auto) Baso # (Auto) Neutrophils % (Manual) Band Neutrophils % Lymphocytes % (Manual) Monocytes % (Manual) Eosinophils % (Manual) Platelet Estimate Hypochromasia (manual) Poikilocytosis (manual Anisocytosis (manual) Microcytosis (manual) Target Cells Tear Drop Cells PT INR APTT Sodium 138 Potassium 4.4 Chloride 109 H Carbon Dioxide 22 Anion Gap 11 BUN 42 H Creatinine 1.3 Est GFR ( Amer) > 60 Est GFR (Non-Af Amer) 59 POC Glucose (mg/dL) Random Glucose 96 Lactic Acid 1.4 Calcium 7.5 L Phosphorus 3.8 Magnesium 2.0 Total Bilirubin 17.6 H AST 85 H ALT 45 Alkaline Phosphatase 64 Ammonia 55 H D Total Protein 5.5 L Albumin 2.0 L Globulin 3.5 Albumin/Globulin Ratio 0.6 L Blood Type Antibody Screen 05/24/18 05/24/18 05/24/18 08:01 11:03 11:25 WBC RBC Hgb Hct MCV MCH MCHC RDW Plt Count MPV Neut % (Auto) Lymph % (Auto) [place] % (Auto) Eos % (Auto) Baso % (Auto) Neut # (Auto) Lymph # (Auto) [place] # (Auto) Eos # (Auto) Baso # (Auto) Neutrophils % (Manual) Band Neutrophils % Lymphocytes % (Manual) Monocytes % (Manual) Eosinophils % (Manual) Platelet Estimate Hypochromasia (manual) Poikilocytosis (manual Anisocytosis (manual) Microcytosis (manual) Target Cells Tear Drop Cells PT INR APTT Sodium Potassium Chloride Carbon Dioxide Anion Gap BUN Creatinine Est GFR ( Amer) Est GFR (Non-Af Amer) POC Glucose (mg/dL) 98 110 Random Glucose Lactic Acid Calcium Phosphorus Magnesium Total Bilirubin AST ALT Alkaline Phosphatase Ammonia Total Protein Albumin Globulin Albumin/Globulin Ratio Blood Type A POSITIVE Antibody Screen Negative Assessment & Plan - Assessment and Plan (Free Text) Assessment: Palliative consult FULL CODE, there is no advance directive on chart, PPS 10 % I reviewed medical records, all diagnostic studies, examined patient in the bed. Patient is very lethargic, eyes closed, reacts to tactile stimuli but no to verbal commends. Patient does not open eyes when called by name nor answer simple questions. Patient looks chronically ill. Skin is dark, jaundiced, INR 17.6. Breathing is shallow. Abdomen distended, tender to RUQ upon palpation. Urine dark lamar, patient uses urinal occasionally. There is mild pedal edema. Doctor Rao called for GI consult and paracentesis is suggested. Patient unstable at present for any procedure due to high bleeding risks. BP 110/59, Midodrine on board Platelets 36, Frozen Plasma transfused. Patient is on Methadone Q HS and Ativan for withdrawal symptoms. Patient's mother Cheri , at bed side. Goals of care discussed. In Demand translation used. I reviewed patient's clinical presentation and elicited her understanding about it. She admitted being aware of patient's IV drugs use and excessive drinking. I offered more information about liver cirrhosis and statistical data indicating high mortality rate. She cried . Mother was reassured that all prudent medical interventions were applied to support her son's life and we had to wait and see how will he respond to given therapy. She cried again. I offered comfort and support. The mother repedetly asked for all available measres to be applied to support her son's life. She repeated several times that she has lost her both parents last year and now she " has only him". Patient has two grown children. The mother said she was to invite one of them to come in tomorrow. Impression * Chronically ill male with advanced stage of decompensated liver cirrhosis * Generalized weakness * Distended abdomen 2nd to ascites * Lethargy * At risk for abnormal bleeding * Unable to advocate for himself due to overall condition * Mother at bed side , requesting FULL CODE * Mother is with poor insight of overall condition Suggestions * Continue all interventions to support liver * Paracentesis for abdominal ascites when stable for procedure * Monitor for abnormal bleeding, continue Plasma and Vit K * Aspiration precautions; offer food by moth only if patient alert and able to swallow well * FULL CODE Palliative care will fallow up with patient and his mother and help her go trough this very difficult time. Family meeting with patient's children involved would be beneficial for the whole family. Patient;s mother was to let me know when the children would be able to meet with me. After physical exam I spent another 40 min in Advance care planing.
--- NOTE | 2018-05-24 14:16 | CP.PCM.PN ---
Subjective - Date & Time of Evaluation Date of Evaluation: 05/24/18 Time of Evaluation: 13:00 - Subjective Subjective: PGY-4 GI Fellow Prog Note Pt lying in bed when seen this AM. Unable to provide history due to clinical status. Unable to obtain ROS due to clinical condition Objective - Vital Signs/Intake and Output Vital Signs (last 24 hours): Temp Pulse Resp BP Pulse Ox 97.6 F 85 12 110/59 L 98 05/23/18 16:00 05/24/18 05:20 05/24/18 05:20 05/24/18 05:20 05/24/18 05:20 Intake and Output: 05/24/18 05/24/18 06:59 18:59 Intake Total 2060 795 Output Total 1200 500 Balance 860 295 - Medications Medications: Current Medications Folic Acid (Folic Acid) 1 mg PO DAILY [facility] Last Admin: 05/24/18 11:21 Dose: 1 mg Gabapentin (Neurontin) 300 mg PO BID [facility] Last Admin: 05/24/18 11:21 Dose: 300 mg Meropenem 1 gm/ Sodium (Chloride) 100 mls @ 100 mls/hr IVPB Q8H [facility] Last Admin: 05/24/18 08:30 Dose: 100 mls/hr Albumin Human (Albumin Human 25% (12.5 Gm/50 Ml)) 100 mls @ 200 mls/hr IV DAILY [facility] Last Admin: 05/24/18 11:13 Dose: 200 mls/hr Albumin Human (Albumin Human 25% (12.5 Gm/50 Ml)) 100 mls @ 200 mls/hr IV DAILY [facility] Last Admin: 05/24/18 11:28 Dose: 200 mls/hr Sodium Chloride (Sodium Chloride 0.9%) 1,000 mls @ 100 mls/hr IV .Q10H [facility] Last Admin: 05/24/18 06:01 Dose: Not Given Dextrose (Dextrose 10% In Water) 1,000 mls @ 30 mls/hr IV .Q24H [facility] Last Admin: 05/23/18 11:30 Dose: 30 mls/hr Metronidazole (Flagyl) 500 mg in 100 mls @ 100 mls/hr IVPB Q8H [facility] PRN Reason: Protocol Last Admin: 05/24/18 12:10 Dose: 100 mls/hr Lactulose (Enulose) 30 gm PO TID [facility] Last Admin: 05/24/18 11:21 Dose: 30 gm Lorazepam (Ativan) 1 mg PO TID [facility] PRN Reason: Taper Stop: 05/28/18 08:59 Last Admin: 05/24/18 14:04 Dose: Not Given Methadone HCl (Methadone) 15 mg PO Q24H [facility] PRN Reason: Taper Stop: 05/27/18 08:59 Last Admin: 05/24/18 09:01 Dose: 15 mg Pantoprazole Sodium (Protonix Inj) 40 mg IVP Q12H [facility] Last Admin: 05/24/18 11:16 Dose: 40 mg Phytonadione (Vitamin K Tab) 10 mg PO DAILY [facility] Stop: 05/26/18 10:01 Last Admin: 05/24/18 11:16 Dose: 10 mg Thiamine HCl (Vitamin B1 Tab) 100 mg PO DAILY [facility] Last Admin: 05/24/18 11:16 Dose: 100 mg - Labs Labs: 05/24/18 06:07 05/24/18 06:07 PT 35.0 SECONDS (9.7-12.2) H* D 05/24/18 06:07 INR 3.2 05/24/18 06:07 APTT 59 SECONDS (21-34) H D 05/24/18 06:07 - Constitutional Appears: Confused, Chronically Ill - Eye Exam Eye Exam: Scleral icterus - ENT Exam ENT Exam: Mucous Membranes Dry, Normal External Ear Exam. absent: Mucous Membranes Moist - Respiratory Exam Respiratory Exam: absent: Accessory Muscle Use, Respiratory Distress - GI/Abdominal Exam GI & Abdominal Exam: Distended, Soft, Tenderness (diffusely), Hernia (small reducible umb hernia), Normal Bowel Sounds - Neurological Exam Additional comments: somnolent, awakes some to loud verbal stimulation but unable to converse, only mumbles - Skin Skin Exam: Warm Additional comments: jaundiced Assessment and Plan - Assessment and Plan (Free Text) Assessment: 47 yo Hisp Male with HCV+EtOH Cirrhosis presenting with abdominal pain, admitted to ICU for suspected Urosepsis. # Decompensated EtOH+HCV Cirrhosis: MELD-Na 40 on admission, CPS-C. Pt ongoing drinker and substance abuser; therefore not a transplant candidate. - HE: Lactulose titrating to at least 3 BMs per day. Trigger likely related to non-compliance, sepsis, RACHANA. - EV: Seen on CT, no EGDs on file. - Ascites: On Furosemide 40 and Spironolactone 100 mg as OP, hold for now given RACHANA. Recommend Paracentesis to r/o SBP. Currently on Meropenem+Metronidazole - HCC: No masses seen on CT and AFP wnl - HRS?: Possible. Started on midodrine, octreotide and given Albumin 25% 25 g. # EtOH Hepatitis: Maddrey 152 but with concomitant infection and RACHANA; therefore steroids contra-indicated. # Sepsis: Likely Urine with dirty UA, but UCx not growing. Should r/o SBP with paracentesis. # Polysubstace abuse Plan: - Recommend Paracentesis checking Albumin, total protein, cytology, culture, gram stain, cell count - If, SBP found would give 1.5 g/kg Albumin 25% day 1 and 1 g/kg on day 3 - Agree with DC of midodrine and octreotide as does not seem like HRS Pt discussed with Dr. Yeh, to see pt later. See his attestation for further recs/changes.
--- NOTE | 2018-05-24 15:25 | PCM.PYCHPN ---
Psychiatric Progress Note - Psychiatric Progress Note Patient seen today, length of contact: 15 min Patient Chief Complaint: "I'm not well" Problems Identified/Issues Discussed: He is seen, chart reviewed, case discussed He is more confused today, labile affect and mood Disoriented and restless. Support given No overt wdw sxs Medication Change: Yes (detox) Medical Record Reviewed: Yes Mental Status Examination - Cognitive Function Orientation: Person, Place, Situation, Time Memory: Impaired Attention: Poor Concentration: Poor Association: Loose Fund of Knowledge: Poor - Mood Mood: Depressed, Anxious - Affect Affect: Constricted - Speech Speech: Slurred, Loud - Formal Thought Process Formal Thought Process: Loosening of associations - Suicidal Ideation Suicidal Ideation: No - Homicidal Ideation Homicidal Ideation: No Goal/Treatment Plan - Goal/Treatment Plan Need for Continued Stay: Other (medical) Progress Toward Problem(s) and Goals/Treatment Plan: Taper with methadone remeron for depression and insomnia As needed medications Support and orientation
--- NOTE | 2018-05-24 17:58 | CT ---
Date of service: 05/24/2018 PROCEDURE: CT HEAD WITHOUT CONTRAST. HISTORY: altered mental status COMPARISON: Comparison is made to the previous study dated 04/11/2018 TECHNIQUE: Axial computed tomography images were obtained through the head/brain without intravenous contrast. Radiation dose: Total exam DLP = 832.42 mGy-cm. This CT exam was performed using one or more of the following dose reduction techniques: Automated exposure control, adjustment of the mA and/or kV according to patient size, and/or use of iterative reconstruction technique. FINDINGS: HEMORRHAGE: No intracranial hemorrhage. BRAIN: No mass effect or edema. No atrophy or chronic microvascular ischemic changes. VENTRICLES: Unremarkable. No hydrocephalus. CALVARIUM: Unremarkable. PARANASAL SINUSES: Unremarkable as visualized. No significant inflammatory changes. MASTOID AIR CELLS: Unremarkable as visualized. No inflammatory changes. OTHER FINDINGS: None. IMPRESSION: No evidence of acute intracranial hemorrhage intracranial collection mass effect or midline shift. No significant interval change noted since the previous exam.
[2018-05-25] MEDS: Meropenem 1 GM in Sodium Chloride 0.9% 100 ML IVPB SCH ×3 (00:33→17:28)
[2018-05-25] MEDS: Sodium Chloride 0.9% 1,000 ML IV SCH ×3 (01:30→21:38)
[2018-05-25] MEDS: metroNIDAZOLE IV 500 mg/100 ml 500 MG/100 ML BAG IVPB SCH ×3 (03:13→20:09)
[2018-05-25 06:29] LABS: BASO % 0.2 % (0.0-2.0); EOS # 0.2 K/uL (0.0-0.7); EOS % 2.1 % (0.0-4.0); HEMOGLOBIN 9.7 g/dL (12.0-18.0); LYMPH # 0.7 K/uL (1.0-4.3); MEAN CELL VOLUME 98.2 fL (80.0-94.0); MEAN CORPUSCULAR HEMOGLOBIN 34.2 pg (27.0-31.0); MEAN CORPUSCULAR HGB CONC 34.8 g/dL (33.0-37.0); MEAN PLATELET VOLUME 10.9 fL (7.2-11.7); MONO % 11.9 % (0.0-10.0); NEUT # 6.6 K/uL (1.8-7.0); NEUT % 77.8 % (50.0-75.0); PLATELET COUNT 36 K/uL (130-400); RBC 2.85 Mil/uL (4.40-5.90); RED CELL DISTRIBUTION WIDTH 17.4 % (11.5-14.5); WHITE BLOOD COUNT 8.5 K/uL (4.8-10.8)
[2018-05-25 06:36] LABS: INR 2.8
[2018-05-25 06:50] LABS: PROTHROMBIN TIME 31.1 SECONDS (9.7-12.2)
[2018-05-25 06:54] LABS: ALB/GLOB RATIO 0.6 (1.0-2.1); ALBUMIN 2.3 g/dL (3.5-5.0); ALT/SGPT 49 U/L (21-72); AST/SGOT 83 U/L (17-59); BLOOD UREA NITROGEN 28 mg/dL (9-20); CALCIUM 7.8 mg/dl (8.6-10.4); GFR AFRICAN-AMERICAN > 60; GFR NON-AFRICAN AMERICAN > 60
[2018-05-25 08:18] LABS: EOSINOPHIL 2 % (0-4); LYMPHOCYTE 6 % (20-40); TOTAL CELLS COUNTED 100
[2018-05-25 08:19] LABS: MONOCYTE 10 % (0-10); NEUTROPHIL 82 % (50-75); PLATELET ESTIMATE DECREASED (NORMAL)
--- NOTE | 2018-05-25 11:07 | CP.CCUPN ---
CCU Subjective - Physician Review Subjective (Free Text): Ricardo Mcmillan DO PGY-1, ICU progress note for Dr. Pepe CCU Objective - Vital Signs / Intake & Output Vital Signs (Last 4 hours): Vital Signs Temp Pulse Resp BP 05/25/18 09:00 97 H 13 05/25/18 08:26 95 H 12 133/79 05/25/18 08:00 98 F 93 H 12 05/25/18 07:27 98 H 15 115/71 Intake and Output (Last 8hrs): Intake & Output 05/24/18 05/25/18 05/25/18 22:59 06:59 14:59 Intake Total 1390 1040 390 Output Total 600 200 Balance 790 840 390 Intake: Intake, IV Amount 940 1040 390 Left Distal Port Forearm 240 240 90 Left Forearm 700 800 300 Oral 150 Blood Product 300 Output: Urine 600 200 Urine, Voided 600 200 Other: # Voids Urine, Voided 1 1 # Bowel Movements 1 - Physical Exam Head: Positive for: Atraumatic, Normocephalic Pupils: Positive for: PERRL Extroacular Muscles: Positive for: EOMI Conjunctiva: Positive for: Normal Mouth: Positive for: Moist Mucous Membranes Neck: Positive for: Normal Range of Motion Respiratory/Chest: Positive for: Clear to Auscultation, Good Air Exchange. Negative for: Respiratory Distress, Accessory Muscle Use Cardiovascular: Positive for: Regular Rate and Rhythm, Normal S1, S2 Abdomen: Positive for: Tenderness (diffuse abdominal tenderness), Normal Bowel Sounds, Other ((+) ascites; (+) moderate left CVA tenderness) Upper Extremity: Positive for: Normal Inspection Lower Extremity: Positive for: Normal Inspection. Negative for: Edema Neurological: Positive for: GCS=15 Skin: Positive for: Warm, Dry, Normal Color Psychiatric: Positive for: Lethargic (but arousable, soft spoken and unable to answer all of my questions appropriately, difficult to understand at times) - Medications Active Medications: Active Medications Generic Name Dose Route Start Last Admin Trade Name Freq PRN Reason Stop Dose Admin Folic Acid 1 mg 05/23/18 10:00 05/24/18 11:21 Folic Acid PO 1 mg DAILY [facility] Administration Gabapentin 300 mg 05/23/18 10:00 05/24/18 19:14 Neurontin PO Not Given BID [facility] Meropenem 1 gm/ Sodium 100 mls @ 100 mls/hr 05/23/18 09:00 05/25/18 08:56 Chloride IVPB 100 mls/hr Q8H [facility] Administration Albumin Human 100 mls @ 200 mls/hr 05/23/18 10:00 05/24/18 11:13 Albumin Human 25% (12.5 Gm/50 Ml) IV 200 mls/hr DAILY [facility] Administration Albumin Human 100 mls @ 200 mls/hr 05/23/18 10:00 05/24/18 11:28 Albumin Human 25% (12.5 Gm/50 Ml) IV 200 mls/hr DAILY [facility] Administration Sodium Chloride 1,000 mls @ 100 mls/hr 05/23/18 09:30 05/25/18 01:30 Sodium Chloride 0.9% IV Not Given .Q10H [facility] Dextrose 1,000 mls @ 30 mls/hr 05/23/18 12:00 05/24/18 21:04 Dextrose 10% In Water IV 30 mls/hr .Q24H [facility] Administration Metronidazole 500 mg in 100 mls @ 100 mls/hr 05/23/18 11:30 05/25/18 03:13 Flagyl IVPB 100 mls/hr Q8H [facility] Administration Protocol Lactulose 30 gm 05/23/18 10:00 05/24/18 21:02 Enulose PO 30 gm TID [facility] Administration Lorazepam 1 mg 05/24/18 09:00 05/24/18 19:13 Ativan PO 05/28/18 08:59 Not Given BID [facility] Taper Methadone HCl 10 mg 05/24/18 09:00 05/24/18 09:01 Methadone PO 05/27/18 08:59 15 mg Q24H [facility] Administration Taper Mirtazapine 15 mg 05/24/18 22:00 05/24/18 21:02 Remeron PO 15 mg HS [facility] Administration Pantoprazole Sodium 40 mg 05/23/18 10:00 05/24/18 21:02 Protonix Inj IVP 40 mg Q12H [facility] Administration Phytonadione 10 mg 05/23/18 10:00 05/24/18 11:16 Vitamin K Tab PO 05/26/18 10:01 10 mg DAILY [facility] Administration Thiamine HCl 100 mg 05/23/18 10:00 05/24/18 11:16 Vitamin B1 Tab PO 100 mg DAILY [facility] Administration - Patient Studies Lab Studies: Microbiology Studies 05/22/18 06:41 Blood Culture - Preliminary Blood-Venous NO GROWTH AFTER 48 HOURS 05/22/18 06:41 Blood Culture - Preliminary Blood-Venous NO GROWTH AFTER 48 HOURS 05/22/18 09:30 MRSA Culture (Admit) - Final Nose MRSA NOT DETECTED Lab Studies 05/25/18 05/25/18 05/25/18 Range/Units 07:36 06:16 06:16 WBC (4.8-10.8) K/uL RBC (4.40-5.90) Mil/uL Hgb (12.0-18.0) g/dL Hct (35.0-51.0) % MCV (80.0-94.0) fL MCH (27.0-31.0) pg MCHC (33.0-37.0) g/dL RDW (11.5-14.5) % Plt Count (130-400) K/uL MPV (7.2-11.7) fL Neut % (Auto) (50.0-75.0) % Lymph % (Auto) (20.0-40.0) % Pettis % (Auto) (0.0-10.0) % Eos % (Auto) (0.0-4.0) % Baso % (Auto) (0.0-2.0) % Neut # (Auto) (1.8-7.0) K/uL Lymph # (Auto) (1.0-4.3) K/uL Pettis # (Auto) (0.0-0.8) K/uL Eos # (Auto) (0.0-0.7) K/uL Baso # (Auto) (0.0-0.2) K/uL Neutrophils % (Manual) (50-75) % Lymphocytes % (Manual) (20-40) % Monocytes % (Manual) (0-10) % Eosinophils % (Manual) (0-4) % Platelet Estimate (NORMAL) PT 31.1 H* (9.7-12.2) SECONDS INR 2.8 APTT 51 H D (21-34) SECONDS Sodium 146 (132-148) mmol/L Potassium 3.8 (3.6-5.2) mmol/L Chloride 111 H (98-107) mmol/L Carbon Dioxide 25 (22-30) mmol/L Anion Gap 15 (10-20) BUN 28 H (9-20) mg/dL Creatinine 0.8 (0.8-1.5) mg/dL Est GFR ( Amer) > 60 Est GFR (Non-Af Amer) > 60 POC Glucose (mg/dL) 96 (65-110) mg/dL Random Glucose 90 (75-110) mg/dL Calcium 7.8 L (8.6-10.4) mg/dl Phosphorus 2.9 (2.5-4.5) mg/dL Magnesium 1.9 (1.6-2.3) mg/dL Total Bilirubin 20.4 H (0.2-1.3) mg/dL AST 83 H (17-59) U/L ALT 49 (21-72) U/L Alkaline Phosphatase 95 (38-126) U/L Total Protein 6.1 L (6.3-8.3) g/dL Albumin 2.3 L (3.5-5.0) g/dL Globulin 3.8 (2.2-3.9) gm/dL Albumin/Globulin Ratio 0.6 L (1.0-2.1) Blood Type Antibody Screen 05/25/18 05/24/18 05/24/18 Range/Units 06:16 21:16 16:19 WBC 8.5 (4.8-10.8) K/uL RBC 2.85 L (4.40-5.90) Mil/uL Hgb 9.7 L (12.0-18.0) g/dL Hct 28.0 L (35.0-51.0) % MCV 98.2 H (80.0-94.0) fL MCH 34.2 H (27.0-31.0) pg MCHC 34.8 (33.0-37.0) g/dL RDW 17.4 H (11.5-14.5) % Plt Count 36 L (130-400) K/uL MPV 10.9 (7.2-11.7) fL Neut % (Auto) 77.8 H (50.0-75.0) % Lymph % (Auto) 8.0 L (20.0-40.0) % Pettis % (Auto) 11.9 H (0.0-10.0) % Eos % (Auto) 2.1 (0.0-4.0) % Baso % (Auto) 0.2 (0.0-2.0) % Neut # (Auto) 6.6 (1.8-7.0) K/uL Lymph # (Auto) 0.7 L (1.0-4.3) K/uL Pettis # (Auto) 1.0 H (0.0-0.8) K/uL Eos # (Auto) 0.2 (0.0-0.7) K/uL Baso # (Auto) 0.0 (0.0-0.2) K/uL Neutrophils % (Manual) 82 H (50-75) % Lymphocytes % (Manual) 6 L (20-40) % Monocytes % (Manual) 10 (0-10) % Eosinophils % (Manual) 2 (0-4) % Platelet Estimate Decreased L (NORMAL) PT (9.7-12.2) SECONDS INR APTT (21-34) SECONDS Sodium (132-148) mmol/L Potassium (3.6-5.2) mmol/L Chloride (98-107) mmol/L Carbon Dioxide (22-30) mmol/L Anion Gap (10-20) BUN (9-20) mg/dL Creatinine (0.8-1.5) mg/dL Est GFR ( Amer) Est GFR (Non-Af Amer) POC Glucose (mg/dL) 100 117 H (65-110) mg/dL Random Glucose (75-110) mg/dL Calcium (8.6-10.4) mg/dl Phosphorus (2.5-4.5) mg/dL Magnesium (1.6-2.3) mg/dL Total Bilirubin (0.2-1.3) mg/dL AST (17-59) U/L ALT (21-72) U/L Alkaline Phosphatase (38-126) U/L Total Protein (6.3-8.3) g/dL Albumin (3.5-5.0) g/dL Globulin (2.2-3.9) gm/dL Albumin/Globulin Ratio (1.0-2.1) Blood Type Antibody Screen 05/24/18 05/24/18 Range/Units 11:25 11:03 WBC (4.8-10.8) K/uL RBC (4.40-5.90) Mil/uL Hgb (12.0-18.0) g/dL Hct (35.0-51.0) % MCV (80.0-94.0) fL MCH (27.0-31.0) pg MCHC (33.0-37.0) g/dL RDW (11.5-14.5) % Plt Count (130-400) K/uL MPV (7.2-11.7) fL Neut % (Auto) (50.0-75.0) % Lymph % (Auto) (20.0-40.0) % Pettis % (Auto) (0.0-10.0) % Eos % (Auto) (0.0-4.0) % Baso % (Auto) (0.0-2.0) % Neut # (Auto) (1.8-7.0) K/uL Lymph # (Auto) (1.0-4.3) K/uL Pettis # (Auto) (0.0-0.8) K/uL Eos # (Auto) (0.0-0.7) K/uL Baso # (Auto) (0.0-0.2) K/uL Neutrophils % (Manual) (50-75) % Lymphocytes % (Manual) (20-40) % Monocytes % (Manual) (0-10) % Eosinophils % (Manual) (0-4) % Platelet Estimate (NORMAL) PT (9.7-12.2) SECONDS INR APTT (21-34) SECONDS Sodium (132-148) mmol/L Potassium (3.6-5.2) mmol/L Chloride (98-107) mmol/L Carbon Dioxide (22-30) mmol/L Anion Gap (10-20) BUN (9-20) mg/dL Creatinine (0.8-1.5) mg/dL Est GFR ( Amer) Est GFR (Non-Af Amer) POC Glucose (mg/dL) 110 (65-110) mg/dL Random Glucose (75-110) mg/dL Calcium (8.6-10.4) mg/dl Phosphorus (2.5-4.5) mg/dL Magnesium (1.6-2.3) mg/dL Total Bilirubin (0.2-1.3) mg/dL AST (17-59) U/L ALT (21-72) U/L Alkaline Phosphatase (38-126) U/L Total Protein (6.3-8.3) g/dL Albumin (3.5-5.0) g/dL Globulin (2.2-3.9) gm/dL Albumin/Globulin Ratio (1.0-2.1) Blood Type A POSITIVE Antibody Screen Negative Laboratory Results - last 24 hr 05/24/18 05/24/18 05/24/18 11:03 11:25 16:19 WBC RBC Hgb Hct MCV MCH MCHC RDW Plt Count MPV Neut % (Auto) Lymph % (Auto) Pettis % (Auto) Eos % (Auto) Baso % (Auto) Neut # (Auto) Lymph # (Auto) Pettis # (Auto) Eos # (Auto) Baso # (Auto) Neutrophils % (Manual) Lymphocytes % (Manual) Monocytes % (Manual) Eosinophils % (Manual) Platelet Estimate PT INR APTT Sodium Potassium Chloride Carbon Dioxide Anion Gap BUN Creatinine Est GFR ( Amer) Est GFR (Non-Af Amer) POC Glucose (mg/dL) 110 117 H Random Glucose Calcium Phosphorus Magnesium Total Bilirubin AST ALT Alkaline Phosphatase Total Protein Albumin Globulin Albumin/Globulin Ratio Blood Type A POSITIVE Antibody Screen Negative 05/24/18 05/25/18 05/25/18 21:16 06:16 06:16 WBC 8.5 RBC 2.85 L Hgb 9.7 L Hct 28.0 L MCV 98.2 H MCH 34.2 H MCHC 34.8 RDW 17.4 H Plt Count 36 L MPV 10.9 Neut % (Auto) 77.8 H Lymph % (Auto) 8.0 L Pettis % (Auto) 11.9 H Eos % (Auto) 2.1 Baso % (Auto) 0.2 Neut # (Auto) 6.6 Lymph # (Auto) 0.7 L Pettis # (Auto) 1.0 H Eos # (Auto) 0.2 Baso # (Auto) 0.0 Neutrophils % (Manual) 82 H Lymphocytes % (Manual) 6 L Monocytes % (Manual) 10 Eosinophils % (Manual) 2 Platelet Estimate Decreased L PT 31.1 H* INR 2.8 APTT 51 H D Sodium Potassium Chloride Carbon Dioxide Anion Gap BUN Creatinine Est GFR ( Amer) Est GFR (Non-Af Amer) POC Glucose (mg/dL) 100 Random Glucose Calcium Phosphorus Magnesium Total Bilirubin AST ALT Alkaline Phosphatase Total Protein Albumin Globulin Albumin/Globulin Ratio Blood Type Antibody Screen 05/25/18 05/25/18 06:16 07:36 WBC RBC Hgb Hct MCV MCH MCHC RDW Plt Count MPV Neut % (Auto) Lymph % (Auto) Pettis % (Auto) Eos % (Auto) Baso % (Auto) Neut # (Auto) Lymph # (Auto) Pettis # (Auto) Eos # (Auto) Baso # (Auto) Neutrophils % (Manual) Lymphocytes % (Manual) Monocytes % (Manual) Eosinophils % (Manual) Platelet Estimate PT INR APTT Sodium 146 Potassium 3.8 Chloride 111 H Carbon Dioxide 25 Anion Gap 15 BUN 28 H Creatinine 0.8 Est GFR ( Amer) > 60 Est GFR (Non-Af Amer) > 60 POC Glucose (mg/dL) 96 Random Glucose 90 Calcium 7.8 L Phosphorus 2.9 Magnesium 1.9 Total Bilirubin 20.4 H AST 83 H ALT 49 Alkaline Phosphatase 95 Total Protein 6.1 L Albumin 2.3 L Globulin 3.8 Albumin/Globulin Ratio 0.6 L Blood Type Antibody Screen Critical Care Progress Note - Nutrition Nutrition: Nutrition Category Date Time Status Heart Healthy Diet [DIET] Diets 05/23/18 Dinner Active
--- NOTE | 2018-05-25 11:11 | RAD ---
Date of service: 05/25/2018 HISTORY: s/p NGT COMPARISON: 04/26/2018 FINDINGS: LUNGS: There is persistent moderate pulmonary venous congestion. No focal consolidation. PLEURA: No significant pleural effusion identified, no pneumothorax apparent. CARDIOVASCULAR: There is persistent mild cardiomegaly and prominent central vasculature. OSSEOUS STRUCTURES: No significant abnormalities. VISUALIZED UPPER ABDOMEN: Normal. OTHER FINDINGS: The nasogastric tube terminates in the stomach. IMPRESSION: Nasogastric tube terminates in the stomach. Persistent mild cardiomegaly and moderate pulmonary venous congestion. No focal consolidation.
--- NOTE | 2018-05-25 12:04 | PCM.PYCHPN ---
Psychiatric Progress Note - Psychiatric Progress Note Patient seen today, length of contact: 15 min Patient Chief Complaint: No c/c, he is confused Problems Identified/Issues Discussed: He is seen, chart reviewed, case discussed He is more confused today, labile affect and mood Disoriented and restless. Support given No overt wdw sxs Psych will sign off Medication Change: Yes (detox) Medical Record Reviewed: Yes Mental Status Examination - Cognitive Function Orientation: Person (He is disoriented to time and place) Memory: Impaired Attention: Poor Concentration: Poor Association: Loose Fund of Knowledge: Poor - Mood Mood: Depressed, Anxious - Affect Affect: Constricted - Speech Speech: Slurred, Loud - Formal Thought Process Formal Thought Process: Loosening of associations - Suicidal Ideation Suicidal Ideation: No - Homicidal Ideation Homicidal Ideation: No Goal/Treatment Plan - Goal/Treatment Plan Need for Continued Stay: Other (medical) Progress Toward Problem(s) and Goals/Treatment Plan: Taper with methadone remeron for depression and insomnia As needed medications Support and orientation Signed off
--- NOTE | 2018-05-25 14:16 | CP.PCM.PN ---
Subjective - Date & Time of Evaluation Date of Evaluation: 05/25/18 Time of Evaluation: 14:16 - Subjective Subjective: Nephrology Consultation Note covering for Dr Tom: Assessment:critical Acute Kidney Injury (N17.9) likely multifactorial due to sepsis/shock/intravasc volume depletion, Decompensated liver disease also could contribute: RESOLVED lactic acidosis left urteral stone with UTI s/p stent pancolitis cirrhosis with ascites and splenomegaly anemia and thrombocytopenia with coagulopathy active substance abuse with heroine/etoh, hep C + AMS Plan RACHANA resolved Maintain hemodynamics stable. Avoid hypotension. Patient not on ACEI/ARB due to recent RACHANA and low BP. agree with IVF and or IV albumin continue with antibiotics and ID team following Dose meds/antibiotics for improved GFR. Glycemic control Further work up/management as per primary team Thanks for allowing me to participate in care of your patient. Will follow further PRN. Please call if any Qs. had d/w team Dr Zia Jordan Office: [phone] source of Info: EMR Chief Complaint; unable Reason for consult: Acute Kidney Injury HPI: Pt is a 47 M with hx of chronic Hep C, kidney stone (Brushite 80% with CaOx 20%) and active substance abuse presented with complaints of pain abdomen for 3 days. he was found to have pancolitis sepsis, UTI with kidney stone. renal consult for RACHANA eval no known OTC/herbal meds or NSAIDs No known recent iodinated contrast exposure. Noted obvious episodes of low BP. pt unable to provide ROS ROS: pt unable to provide Physical Examination: General Appearance: Comfortable, in no acute respiratory distress, ill appearing , sleepy/lethargic Vitals reviewed and noted as below Head; Atraumatic, normocephalic ENT: unable EYES: Pupils are equal, round and reactive to light accommodation. Eye muscles and extraocular movement intact. Sclera is icteric. Neck; supple no lymphadenopathy, no thyromegaly or bruit Lungs: Normal respiratory rate/effort. Breath sounds bilateral equal and clear anteriorly Heart: Increased rate. s1s2 normal. No rub or gallop. Extremities: no edema. No varicose veins Neurological: Patient is sleepy/lethargic Skin: Warm and dry. Normal turgor. No rash. Palpitation: Normal elasticity for age Abdomen: Abdomen is soft/distended. Bowel sounds +. There is abdominal tenderness, no guarding/rigidity no organomegaly Psych: unable MSK: no joint tenderness or swelling. Digits and nails normal, no deformity : kidney or bladder not palpable but exam limited Labs/imaging reviewed. Past medical history, past surgical history, family history, social history, allergy reviewed and noted as below Family hx: no hx of CKD. Rest non-contributory work up: reviewed UA 3+ blood and RBCs with bacteria Fena0.2% Objective - Vital Signs/Intake and Output Vital Signs (last 24 hours): Temp Pulse Resp BP Pulse Ox 98 F 98 H 18 136/81 96 05/25/18 12:35 05/25/18 12:10 05/25/18 12:10 05/25/18 12:12 05/25/18 09:30 Intake and Output: 05/25/18 05/25/18 06:59 18:59 Intake Total 1710 390 Output Total 400 Balance 1310 390 - Medications Medications: Current Medications Folic Acid (Folic Acid) 1 mg PO DAILY [facility] Last Admin: 05/25/18 11:38 Dose: 1 mg Gabapentin (Neurontin) 300 mg PO BID [facility] Last Admin: 05/25/18 11:59 Dose: 300 mg Meropenem 1 gm/ Sodium (Chloride) 100 mls @ 100 mls/hr IVPB Q8H [facility] Last Admin: 05/25/18 08:56 Dose: 100 mls/hr Albumin Human (Albumin Human 25% (12.5 Gm/50 Ml)) 100 mls @ 200 mls/hr IV DAILY [facility] Last Admin: 05/25/18 11:39 Dose: 200 mls/hr Albumin Human (Albumin Human 25% (12.5 Gm/50 Ml)) 100 mls @ 200 mls/hr IV DAILY [facility] Last Admin: 05/24/18 11:28 Dose: 200 mls/hr Sodium Chloride (Sodium Chloride 0.9%) 1,000 mls @ 100 mls/hr IV .Q10H [facility] Last Admin: 05/25/18 12:34 Dose: 100 mls/hr Dextrose (Dextrose 10% In Water) 1,000 mls @ 30 mls/hr IV .Q24H [facility] Last Admin: 05/25/18 12:33 Dose: Not Given Metronidazole (Flagyl) 500 mg in 100 mls @ 100 mls/hr IVPB Q8H [facility] PRN Reason: Protocol Last Admin: 05/25/18 12:33 Dose: 100 mls/hr Lactulose (Enulose) 30 gm NG TID [facility] Lorazepam (Ativan) 1 mg PO BID [facility] PRN Reason: Taper Stop: 05/28/18 08:59 Last Admin: 05/25/18 12:00 Dose: 1 mg Lorazepam (Ativan) 1 mg IVP Q2H PRN PRN Reason: Anxiety Methadone HCl (Methadone) 10 mg PO Q24H ROBYN PRN Reason: Taper Stop: 05/27/18 08:59 Last Admin: 05/25/18 11:59 Dose: 10 mg Mirtazapine (Remeron) 15 mg PO HS [facility] Last Admin: 05/24/18 21:02 Dose: 15 mg Pantoprazole Sodium (Protonix Inj) 40 mg IVP Q12H ROBYN Last Admin: 05/25/18 11:41 Dose: 40 mg Phytonadione (Vitamin K Tab) 10 mg PO DAILY ROBYN Stop: 05/26/18 10:01 Last Admin: 05/25/18 11:38 Dose: 10 mg Thiamine HCl (Vitamin B1 Tab) 100 mg PO DAILY ROBYN Last Admin: 05/25/18 11:59 Dose: 100 mg - Labs Labs: 05/25/18 06:16 05/25/18 06:16 PT 31.1 SECONDS (9.7-12.2) H* 05/25/18 06:16 INR 2.8 05/25/18 06:16 APTT 51 SECONDS (21-34) H D 05/25/18 06:16
--- NOTE | 2018-05-25 14:19 | US ---
Date of service: 05/25/2018 PROCEDURE: Abdominal ultrasound, limited HISTORY: ASCITES COMPARISON: 05/23/2018 TECHNIQUE: Limited ultrasound examination was performed for planning and evaluation for possible paracentesis. FINDINGS: Moderate ascites is demonstrated. Nodular hepatic contour is noted consistent with hepatic cirrhosis. Extensive ascites is not fully assessed but appears grossly similar to prior examination. . IMPRESSION: Ascites noted.
--- NOTE | 2018-05-25 14:33 | CP.PCM.PN ---
<Idalia Colon - Last Filed: 05/25/18 15:13> Subjective - Subjective Subjective: PGY-1 Medicine Progress Note for Dr. Roblero's service Patient seen and examined at bedside. Patient has altered mental status likely due to hepatic encephelopathy. Patient ROS limited secondary to clinical condition. Objective - Vital Signs/Intake and Output Vital Signs (last 24 hours): Temp Pulse Resp BP Pulse Ox 97.9 F 109 H 22 118/86 96 05/25/18 13:15 05/25/18 15:00 05/25/18 15:00 05/25/18 14:25 05/25/18 09:30 Intake and Output: 05/25/18 05/25/18 06:59 18:59 Intake Total 1710 580 Output Total 400 300 Balance 1310 280 - Medications Medications: Current Medications Folic Acid (Folic Acid) 1 mg PO DAILY [facility] Last Admin: 05/25/18 11:38 Dose: 1 mg Gabapentin (Neurontin) 300 mg PO BID [facility] Last Admin: 05/25/18 11:59 Dose: 300 mg Meropenem 1 gm/ Sodium (Chloride) 100 mls @ 100 mls/hr IVPB Q8H [facility] Last Admin: 05/25/18 08:56 Dose: 100 mls/hr Albumin Human (Albumin Human 25% (12.5 Gm/50 Ml)) 100 mls @ 200 mls/hr IV DAILY [facility] Last Admin: 05/25/18 11:39 Dose: 200 mls/hr Albumin Human (Albumin Human 25% (12.5 Gm/50 Ml)) 100 mls @ 200 mls/hr IV DAILY [facility] Last Admin: 05/24/18 11:28 Dose: 200 mls/hr Sodium Chloride (Sodium Chloride 0.9%) 1,000 mls @ 100 mls/hr IV .Q10H [facility] Last Admin: 05/25/18 12:34 Dose: 100 mls/hr Dextrose (Dextrose 10% In Water) 1,000 mls @ 30 mls/hr IV .Q24H [facility] Last Admin: 05/25/18 12:33 Dose: Not Given Metronidazole (Flagyl) 500 mg in 100 mls @ 100 mls/hr IVPB Q8H [facility] PRN Reason: Protocol Last Admin: 05/25/18 12:33 Dose: 100 mls/hr Lactulose (Enulose) 30 gm NG TID [facility] Last Admin: 05/25/18 14:24 Dose: 30 gm Lorazepam (Ativan) 1 mg PO BID [facility] PRN Reason: Taper Stop: 05/28/18 08:59 Last Admin: 05/25/18 12:00 Dose: 1 mg Lorazepam (Ativan) 1 mg IVP Q2H PRN PRN Reason: Anxiety Last Admin: 05/25/18 14:23 Dose: 1 mg Methadone HCl (Methadone) 10 mg PO Q24H [facility] PRN Reason: Taper Stop: 05/27/18 08:59 Last Admin: 05/25/18 11:59 Dose: 10 mg Mirtazapine (Remeron) 15 mg PO HS [facility] Last Admin: 05/24/18 21:02 Dose: 15 mg Pantoprazole Sodium (Protonix Inj) 40 mg IVP Q12H [facility] Last Admin: 05/25/18 11:41 Dose: 40 mg Phytonadione (Vitamin K Tab) 10 mg PO DAILY [facility] Stop: 05/26/18 10:01 Last Admin: 05/25/18 11:38 Dose: 10 mg Thiamine HCl (Vitamin B1 Tab) 100 mg PO DAILY [facility] Last Admin: 05/25/18 11:59 Dose: 100 mg - Labs Labs: 05/25/18 06:16 05/25/18 06:16 PT 31.1 SECONDS (9.7-12.2) H* 05/25/18 06:16 INR 2.8 05/25/18 06:16 APTT 51 SECONDS (21-34) H D 05/25/18 06:16 - Constitutional Appears: Non-toxic, No Acute Distress, Agitated, Confused - Head Exam Head Exam: NORMAL INSPECTION, NORMOCEPHALIC - Eye Exam Eye Exam: Scleral icterus. absent: Nystagmus - ENT Exam ENT Exam: Mucous Membranes Dry - Respiratory Exam Respiratory Exam: Clear to Ausculation Bilateral, NORMAL BREATHING PATTERN. absent: Rales, Rhonchi, Wheezes - Cardiovascular Exam Cardiovascular Exam: REGULAR RHYTHM, +S1, +S2. absent: Tachycardia - GI/Abdominal Exam GI & Abdominal Exam: Distended, Firm, Normal Bowel Sounds. absent: Guarding - Extremities Exam Extremities Exam: Normal Inspection. absent: Pedal Edema - Back Exam Back Exam: NORMAL INSPECTION - Neurological Exam Neurological Exam: Altered. 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 Plan: Hepatic Encephelopathy 05/25 U/S: Moderate ascites is demonstrated. Nodular hepatic contour is noted consistent with hepatic cirrhosis. Extensive ascites is not fully assessed but appears grossly similar to prior examination Likely secondary to cirrhosis- patient uses EtoH and has untreated Hep C infection Ascities noted- however to little fluid for tapping with thoracentesis NG tube in place due to AMS; IVF @ 100mls/hr Lactulose 30mg NG TID Meld score: 40 Consider repeat ammonia lvl in AM Ascites Thoracentesis not performed due to low fluid in imaging On Meropenem 1gm IVPB @ 100mls/ hr; Flagy @ 100mls/hr IVPB for emperic coverage Hypoalbuminemia Albumin 200mls/hr EtOH use disorder CIWA protocol Lorazepam 1mg po bid [facility]ayne Folic acid 1mg po daily Thiamine 100mg po daily [facility]ayne Depression Psych Consult- Ozden- Recommends patient be on Remeron 15mg po HS Insomnia Mirtazapine 15mg po HS Substance abuse- Heroin positive urine opiate screen Psych Consult- Ozden- Recommdends patient be on Methadone 10mg po q24h PPx: GI ppx: Protonix 40mg IVP q12h DVT ppx: SCDs; No VTE 2/2 thrombocytopenia <Aroldo Roblero - Last Filed: 05/25/18 17:49> Subjective - Date & Time of Evaluation Date of Evaluation: 05/25/18 Time of Evaluation: 14:33 Objective - Vital Signs/Intake and Output Vital Signs (last 24 hours): Temp Pulse Resp BP Pulse Ox 98 F 98 H 18 136/81 96 05/25/18 12:35 05/25/18 12:10 05/25/18 12:10 05/25/18 12:12 05/25/18 09:30 Intake and Output: 05/25/18 05/25/18 06:59 18:59 Intake Total 1710 390 Output Total 400 Balance 1310 390 - Medications Medications: Current Medications Folic Acid (Folic Acid) 1 mg PO DAILY [facility] Last Admin: 05/25/18 11:38 Dose: 1 mg Gabapentin (Neurontin) 300 mg PO BID [facility] Last Admin: 05/25/18 11:59 Dose: 300 mg Meropenem 1 gm/ Sodium (Chloride) 100 mls @ 100 mls/hr IVPB Q8H [facility] Last Admin: 05/25/18 08:56 Dose: 100 mls/hr Albumin Human (Albumin Human 25% (12.5 Gm/50 Ml)) 100 mls @ 200 mls/hr IV DAILY [facility] Last Admin: 05/25/18 11:39 Dose: 200 mls/hr Albumin Human (Albumin Human 25% (12.5 Gm/50 Ml)) 100 mls @ 200 mls/hr IV DAILY [facility] Last Admin: 05/24/18 11:28 Dose: 200 mls/hr Sodium Chloride (Sodium Chloride 0.9%) 1,000 mls @ 100 mls/hr IV .Q10H [facility] Last Admin: 05/25/18 12:34 Dose: 100 mls/hr Dextrose (Dextrose 10% In Water) 1,000 mls @ 30 mls/hr IV .Q24H [facility] Last Admin: 05/25/18 12:33 Dose: Not Given Metronidazole (Flagyl) 500 mg in 100 mls @ 100 mls/hr IVPB Q8H [facility] PRN Reason: Protocol Last Admin: 05/25/18 12:33 Dose: 100 mls/hr Lactulose (Enulose) 30 gm NG TID [facility] Last Admin: 05/25/18 14:24 Dose: 30 gm Lorazepam (Ativan) 1 mg PO BID [facility] PRN Reason: Taper Stop: 05/28/18 08:59 Last Admin: 05/25/18 12:00 Dose: 1 mg Lorazepam (Ativan) 1 mg IVP Q2H PRN PRN Reason: Anxiety Last Admin: 05/25/18 14:23 Dose: 1 mg Methadone HCl (Methadone) 10 mg PO Q24H [facility] PRN Reason: Taper Stop: 05/27/18 08:59 Last Admin: 05/25/18 11:59 Dose: 10 mg Mirtazapine (Remeron) 15 mg PO HS [facility] Last Admin: 05/24/18 21:02 Dose: 15 mg Pantoprazole Sodium (Protonix Inj) 40 mg IVP Q12H [facility] Last Admin: 05/25/18 11:41 Dose: 40 mg Phytonadione (Vitamin K Tab) 10 mg PO DAILY [facility] Stop: 05/26/18 10:01 Last Admin: 05/25/18 11:38 Dose: 10 mg Thiamine HCl (Vitamin B1 Tab) 100 mg PO DAILY [facility] Last Admin: 05/25/18 11:59 Dose: 100 mg - Labs Labs: 05/25/18 06:16 05/25/18 06:16 PT 31.1 SECONDS (9.7-12.2) H* 05/25/18 06:16 INR 2.8 05/25/18 06:16 APTT 51 SECONDS (21-34) H D 05/25/18 06:16 Attending/Attestation - Attestation I have personally seen and examined this patient.: Yes I have fully participated in the care of the patient.: Yes I have reviewed all pertinent clinical information, including history, physical exam and plan: Yes Notes (Text): 1. Hepatic Encephalopathy 2. Toxic metabolic encephalopathy 3. Liver Cirrhosis with High Meld (60% plus chance 90 day mortality) spoke with family poor prognosis 4. Elevated INR 5. Acute Renal Failure improving 6. Pneumonia 7. Nephrolithiasis 1.8cm 8. Heroin withdrawal 9 Ascites - tense abdomen - unable to be tapped - presumption of sbp on abx DNR/DNI
--- NOTE | 2018-05-25 14:35 | CP.PCM.PN ---
Subjective - Date & Time of Evaluation Date of Evaluation: 05/24/18 Time of Evaluation: 13:09 - Subjective Subjective: confused moaning gesturing awake Objective - Vital Signs/Intake and Output Vital Signs (last 24 hours): Temp Pulse Resp BP Pulse Ox 98 F 98 H 18 136/81 96 05/25/18 12:35 05/25/18 12:10 05/25/18 12:10 05/25/18 12:12 05/25/18 09:30 Intake and Output: 05/25/18 05/25/18 06:59 18:59 Intake Total 1710 390 Output Total 400 Balance 1310 390 - Medications Medications: Current Medications Folic Acid (Folic Acid) 1 mg PO DAILY [facility] Last Admin: 05/25/18 11:38 Dose: 1 mg Gabapentin (Neurontin) 300 mg PO BID [facility] Last Admin: 05/25/18 11:59 Dose: 300 mg Meropenem 1 gm/ Sodium (Chloride) 100 mls @ 100 mls/hr IVPB Q8H [facility] Last Admin: 05/25/18 08:56 Dose: 100 mls/hr Albumin Human (Albumin Human 25% (12.5 Gm/50 Ml)) 100 mls @ 200 mls/hr IV DAILY [facility] Last Admin: 05/25/18 11:39 Dose: 200 mls/hr Albumin Human (Albumin Human 25% (12.5 Gm/50 Ml)) 100 mls @ 200 mls/hr IV DAILY [facility] Last Admin: 05/24/18 11:28 Dose: 200 mls/hr Sodium Chloride (Sodium Chloride 0.9%) 1,000 mls @ 100 mls/hr IV .Q10H [facility] Last Admin: 05/25/18 12:34 Dose: 100 mls/hr Dextrose (Dextrose 10% In Water) 1,000 mls @ 30 mls/hr IV .Q24H [facility] Last Admin: 05/25/18 12:33 Dose: Not Given Metronidazole (Flagyl) 500 mg in 100 mls @ 100 mls/hr IVPB Q8H [facility] PRN Reason: Protocol Last Admin: 05/25/18 12:33 Dose: 100 mls/hr Lactulose (Enulose) 30 gm NG TID [facility] Last Admin: 05/25/18 14:24 Dose: 30 gm Lorazepam (Ativan) 1 mg PO BID [facility] PRN Reason: Taper Stop: 05/28/18 08:59 Last Admin: 05/25/18 12:00 Dose: 1 mg Lorazepam (Ativan) 1 mg IVP Q2H PRN PRN Reason: Anxiety Last Admin: 05/25/18 14:23 Dose: 1 mg Methadone HCl (Methadone) 10 mg PO Q24H [facility] PRN Reason: Taper Stop: 05/27/18 08:59 Last Admin: 05/25/18 11:59 Dose: 10 mg Mirtazapine (Remeron) 15 mg PO HS [facility] Last Admin: 05/24/18 21:02 Dose: 15 mg Pantoprazole Sodium (Protonix Inj) 40 mg IVP Q12H [facility] Last Admin: 05/25/18 11:41 Dose: 40 mg Phytonadione (Vitamin K Tab) 10 mg PO DAILY [facility] Stop: 05/26/18 10:01 Last Admin: 05/25/18 11:38 Dose: 10 mg Thiamine HCl (Vitamin B1 Tab) 100 mg PO DAILY [facility] Last Admin: 05/25/18 11:59 Dose: 100 mg - Labs Labs: 05/25/18 06:16 05/25/18 06:16 PT 31.1 SECONDS (9.7-12.2) H* 05/25/18 06:16 INR 2.8 05/25/18 06:16 APTT 51 SECONDS (21-34) H D 05/25/18 06:16 - Head Exam Head Exam: ATRAUMATIC - Eye Exam Additional comments: jaundiced - Respiratory Exam Respiratory Exam: Clear to Ausculation Bilateral. absent: Accessory Muscle Use , NORMAL BREATHING PATTERN - Cardiovascular Exam Cardiovascular Exam: REGULAR RHYTHM, +S1, +S2 - GI/Abdominal Exam GI & Abdominal Exam: Firm, Tenderness - Neurological Exam Neurological Exam: Alert. absent: Awake, Oriented x3 - Skin Additional comments: jaundiced Assessment and Plan - Assessment and Plan (Free Text) Assessment: This is a 47 y/o male with PMHx of Hepatic Encephalopathy 2/2 cirrhosis, Untreated Hepatitis C (HCC ruled out), pancytopenia, Splenomegaly, Nephrolithasis, Polysubstance abuse who presented to ED on 05/22 for complaints of abdominal pain for the past 3 days, associated with NBNB vomiting on 05/21 and 2 days of nonbloody diarrhea. Pt admitted to ICU with urosepsis secondary to pyelonephritis and nephrolithiasis. 1. Hepatic Encephalopathy 2. Toxic metabolic encephalopathy 3. Liver Cirrhosis with High Meld (60% plus chance 90 day mortality) spoke with family poor prognosis 4. Elevated INR 5. Acute Renal Failure improving 6. Pneumonia 7. Nephrolithiasis 1.8cm 8. Heroin withdrawal 9 Ascites - tense abdomen Plan: cont ICU care discussed DNR/DNI to family they agreed will meet as a family and discuss with son
--- NOTE | 2018-05-25 16:16 | PN ---
Copied To: Ken Vides MD Attending MD: Ken Vides MD DATE: 05/25/2018 LOCATION: ICU 4. SUBJECTIVE: This is a 47-year-old male in a status of DNR and DNI, seen and examined early in rounds with staff in the intensive care unit, appears to be lethargic with period of being restlessness, aggressive, confused on and off; however, no reported active bleeding and the most recent lab results showed hemoglobin of 9.7, hematocrit 28 with thrombocytopenia of 36 with PT of 31.1, PTT 51, BUN of 28, but normal creatinine with calcium 7.8, total bilirubin 20, AST of 83, albumin 2.3, total protein 6.1. Most recent chest x-ray done today. Official report reviewed indicative of NG tube is in place with cardiomegaly with pulmonary venous congestion. PHYSICAL EXAMINATION: GENERAL: A 47-year-old male agitated, restless. VITAL SIGNS: Afebrile with pulse of 94, blood pressure 130/72 with respiratory rate of 14 to 16. HEENT: Showed pale, dry oral mucous membrane with bilateral icteric sclerae. LUNGS: Scattered crepitation with few rales bilaterally. Breathing sounds are present. HEART: Positive S1 and S2 with increased rate. ABDOMEN: Soft with mild generalized tenderness. No mass or organomegaly. No rebound tenderness or guarding and small amount of seen. EXTREMITIES: Mild tremors on the lower extremities with edematous changes. No clubbing or cyanosis. [employer]IDGE [employer]PERATOR: No reported new neurological deficits, sensory or motor.. IMPRESSION: 1. Liver cirrhosis. 2. Known history of hepatitis C viral infection. 3. Alcoholism with alcoholic liver disease. 4. Jaundice secondary to hepatocellular injury and as well above. 5. Septicemia, the possibility of spontaneous bacterial peritonitis versus recurrent urinary tract infection . 6. Hepatic encephalopathy. 7. Mild congestive heart failure as reported by chest x-ray. 8. Anemia, most likely secondary to above. 9. Thrombocytopenia secondary to above. 10. Polysubstance abuse by history. SUGGESTIONS: 1. Agree with your plan. 2. May add neomycin through the NG tube with the lactulose. 3. Ammonia level. 4. Ultrasound-guided abdominal paracentesis with full evaluation of the ascitic fluid. 5. Further recommendation to follow. 6. No need for aggressive GI procedure at this point. We will follow up closely with you. Ken Vides MD
[2018-05-25 18:02] LABS: C DIFF TOXIN A B NEGATIVE (NEGATIVE)
--- NOTE | 2018-05-25 18:14 | CP.PCM.PN ---
Subjective - Date & Time of Evaluation Date of Evaluation: 05/25/18 Time of Evaluation: 08:00 - Subjective Subjective: remains altered iv rx renewed Objective - Vital Signs/Intake and Output Vital Signs (last 24 hours): Temp Pulse Resp BP Pulse Ox 97.9 F 95 H 14 140/82 95 05/25/18 14:30 05/25/18 17:31 05/25/18 17:31 05/25/18 17:31 05/25/18 16:00 Intake and Output: 05/25/18 05/25/18 06:59 18:59 Intake Total 1710 1300 Output Total 400 300 Balance 1310 1000 - Medications Medications: Current Medications Folic Acid (Folic Acid) 1 mg PO DAILY [facility] Last Admin: 05/25/18 11:38 Dose: 1 mg Gabapentin (Neurontin) 300 mg PO BID [facility] Last Admin: 05/25/18 17:25 Dose: Not Given Meropenem 1 gm/ Sodium (Chloride) 100 mls @ 100 mls/hr IVPB Q8H [facility] Last Admin: 05/25/18 17:28 Dose: 100 mls/hr Albumin Human (Albumin Human 25% (12.5 Gm/50 Ml)) 100 mls @ 200 mls/hr IV DAILY [facility] Last Admin: 05/25/18 11:39 Dose: 200 mls/hr Albumin Human (Albumin Human 25% (12.5 Gm/50 Ml)) 100 mls @ 200 mls/hr IV DAILY [facility] Last Admin: 05/25/18 15:17 Dose: Not Given Sodium Chloride (Sodium Chloride 0.9%) 1,000 mls @ 100 mls/hr IV .Q10H [facility] Last Admin: 05/25/18 12:34 Dose: 100 mls/hr Dextrose (Dextrose 10% In Water) 1,000 mls @ 30 mls/hr IV .Q24H [facility] Last Admin: 05/25/18 12:33 Dose: Not Given Metronidazole (Flagyl) 500 mg in 100 mls @ 100 mls/hr IVPB Q8H [facility] PRN Reason: Protocol Last Admin: 05/25/18 12:33 Dose: 100 mls/hr Lactulose (Enulose) 30 gm NG TID [facility] Last Admin: 05/25/18 17:25 Dose: Not Given Lorazepam (Ativan) 1 mg PO BID [facility] PRN Reason: Taper Stop: 05/28/18 08:59 Last Admin: 05/25/18 18:08 Dose: Not Given Lorazepam (Ativan) 1 mg IVP Q2H PRN PRN Reason: Anxiety Last Admin: 05/25/18 18:09 Dose: 1 mg Methadone HCl (Methadone) 10 mg PO Q24H [facility] PRN Reason: Taper Stop: 05/27/18 08:59 Last Admin: 05/25/18 11:59 Dose: 10 mg Mirtazapine (Remeron) 15 mg PO HS [facility] Last Admin: 05/24/18 21:02 Dose: 15 mg Pantoprazole Sodium (Protonix Inj) 40 mg IVP Q12H [facility] Last Admin: 05/25/18 11:41 Dose: 40 mg Phytonadione (Vitamin K Tab) 10 mg PO DAILY [facility] Stop: 05/26/18 10:01 Last Admin: 05/25/18 11:38 Dose: 10 mg Thiamine HCl (Vitamin B1 Tab) 100 mg PO DAILY [facility] Last Admin: 05/25/18 11:59 Dose: 100 mg - Labs Labs: 05/25/18 06:16 05/25/18 06:16 PT 31.1 SECONDS (9.7-12.2) H* 05/25/18 06:16 INR 2.8 05/25/18 06:16 APTT 51 SECONDS (21-34) H D 05/25/18 06:16 - Constitutional Appears: Confused, Cachectic, Chronically Ill - Head Exam Head Exam: ATRAUMATIC, NORMOCEPHALIC - Eye Exam Eye Exam: PERRL - ENT Exam ENT Exam: Mucous Membranes Dry - Neck Exam Neck Exam: absent: Lymphadenopathy - Respiratory Exam Respiratory Exam: Decreased Breath Sounds - Cardiovascular Exam Cardiovascular Exam: REGULAR RHYTHM - GI/Abdominal Exam GI & Abdominal Exam: Distended - Rectal Exam Rectal Exam: Deferred - Exam Exam: NORMAL INSPECTION - Extremities Exam Extremities Exam: Pedal Edema - Back Exam Back Exam: absent: CVA tenderness (L), CVA tenderness (R) Assessment and Plan (1) Colitis Status: Acute (2) Renal stone Status: Acute (3) Severe sepsis Status: Acute (4) UTI (urinary tract infection) Status: Acute (5) Abdominal pain Status: Acute
[2018-05-25 18:55] LABS: FECAL LEUKOCYTES NEGATIVE (NEGATIVE)
[2018-05-26] MEDS: Meropenem 1 GM in Sodium Chloride 0.9% 100 ML IVPB SCH ×3 (00:26→16:12)
[2018-05-26] MEDS: metroNIDAZOLE IV 500 mg/100 ml 500 MG/100 ML BAG IVPB SCH ×3 (03:36→19:41)
[2018-05-26 07:13] LABS: BASO % 0.2 % (0.0-2.0); EOS # 0.2 K/uL (0.0-0.7); EOS % 1.7 % (0.0-4.0); HEMOGLOBIN 9.4 g/dL (12.0-18.0); INR 3.2; LYMPH # 0.7 K/uL (1.0-4.3); LYMPH % 6.2 % (20.0-40.0); MEAN CELL VOLUME 97.6 fL (80.0-94.0); MEAN CORPUSCULAR HEMOGLOBIN 34.4 pg (27.0-31.0); MEAN CORPUSCULAR HGB CONC 35.2 g/dL (33.0-37.0); MONO # 0.9 K/uL (0.0-0.8); MONO % 7.8 % (0.0-10.0); NEUT # 9.9 K/uL (1.8-7.0); NEUT % 84.1 % (50.0-75.0); NRBC % 0.1 % (0.0-2.0); PLATELET COUNT 39 K/uL (130-400); RBC 2.73 Mil/uL (4.40-5.90); RED CELL DISTRIBUTION WIDTH 16.8 % (11.5-14.5); WHITE BLOOD COUNT 11.8 K/uL (4.8-10.8)
[2018-05-26] MEDS: Sodium Chloride 0.9% 1,000 ML IV SCH ×2 (07:30→17:22)
[2018-05-26 07:32] LABS: ALB/GLOB RATIO 0.6 (1.0-2.1); ALBUMIN 2.6 g/dL (3.5-5.0); ALT/SGPT 42 U/L (21-72); AST/SGOT 84 U/L (17-59); BLOOD UREA NITROGEN 20 mg/dL (9-20); CALCIUM 8.9 mg/dl (8.6-10.4); GFR AFRICAN-AMERICAN > 60; GFR NON-AFRICAN AMERICAN > 60
[2018-05-26 07:39] LABS: PROTHROMBIN TIME 34.6 SECONDS (9.7-12.2)
--- NOTE | 2018-05-26 08:12 | RAD ---
Date of service: 05/26/2018 HISTORY: r/o PNA COMPARISON: 05/25/2018 FINDINGS: LUNGS: Prior pulmonary venous congestion likely still persist. Interval patchy nodular airspace opacities compatible with bilateral patchy infiltrates. Additional underlying pathology not excluded. Lung volumes shallow. PLEURA: Probable tiny left pleural effusion. No pneumothorax appreciated CARDIOVASCULAR: Cardiomegaly similar. Pulmonary venous congestion further increased since prior exam. OSSEOUS STRUCTURES: No significant abnormalities. VISUALIZED UPPER ABDOMEN: Normal. OTHER FINDINGS: NG tube tip in stomach as before. IMPRESSION: Interval patchy bilateral nodular infiltrates. Worsening prior pulmonary venous congestion. Cardiomegaly as before NG tube tip positioning-satisfactory
[2018-05-26 08:50] LABS: EOSINOPHIL 2 % (0-4); LYMPHOCYTE 7 % (20-40); MONOCYTE 8 % (0-10); NEUTROPHIL 83 % (50-75); PLATELET ESTIMATE DECREASED (NORMAL); TOTAL CELLS COUNTED 100
[2018-05-26 08:53] LABS: ANISOCYTOSIS SLIGHT; HYPOCHROMIC SLIGHT; POIKILOCYTOSIS SLIGHT
[2018-05-26 08:54] LABS: OVALOCYTES SLIGHT; TARGET CELLS SLIGHT; TEARDROP CELLS SLIGHT
--- NOTE | 2018-05-26 14:43 | PN ---
Copied To: Ken Vides MD Attending MD: Ken Vides MD DATE: 05/26/2018 LOCATION: 358, bed B. SUBJECTIVE: This is a 47-year-old male seen and examined today out of the NG tube with period of semi confusion and mild agitation. The entire chart is reviewed including but not limited to the most recent lab and radiology study results, current and the previous medication list, current and the previous medical events. The patient is still incontinent of urine and fecal material. LABORATORY DATA: Today's lab showed white blood cells of 11.8, hemoglobin 9.4, hematocrit 26.6 with thrombocytopenia of 39, PT of 34.6, PTT 49, total bilirubin 23.8 and AST of 84 with normal ALT with albumin 2.6. Most recent chest x-ray done today, official report is seen and evaluated, indicative of bilateral pneumonia with pulmonary edema as well as cardiomegaly. PHYSICAL EXAMINATION: General: A 47-year-old male in a state of DNR. Vital signs: Afebrile with pulse of 104, respiratory rate 20 to 22, blood pressure of 146/88. HEENT: Showed pale, dry mucous membrane. Bilateral icteric sclerae. Lungs: Few scattered crepitation with few rales bilaterally. Heart: Positive S1 and S2 with increased rate. Abdomen: With mild distention. Bowel sounds are hypoactive. Positive for ascites. Small umbilical hernia is seen today more prominent. Extremities: Lower extremity edematous changes. NEUROLOGICAL: No reported new neurological deficits, sensory or motor. IMPRESSION: 1. Liver cirrhosis, most likely alcohol induced. 2. Known history of viral hepatitis. 3. Evidence of portal hypertension with ascites. 4. To rule out spontaneous bacterial peritonitis. 5. Hepatic encephalopathy slightly improving 6. Jaundice secondary to above. The patient in a state of hepatic failure. 7. Congestive heart failure with pneumonia. 8. Thrombocytopenia secondary to above. 9. Known history of polysubstance abuse, by history. SUGGESTIONS: 1. Continue supportive treatment. 2. No aggressive GI workup in the meantime. 3. Peripheral versus central hyperalimentation. 4. Further recommendation to follow. Ken Vides MD Psychiatric # [id number]
--- NOTE | 2018-05-26 16:31 | CP.PCM.PN ---
<Kristine Solano - Last Filed: 05/26/18 16:38> Subjective - Date & Time of Evaluation Date of Evaluation: 05/26/18 Time of Evaluation: 06:45 - Subjective Subjective: Patient examined at bedside. ROS unobtainable as patient is altered. Nursing reports patient had dark output through NGT. Objective - Vital Signs/Intake and Output Vital Signs (last 24 hours): Temp Pulse Resp BP Pulse Ox 99.2 F 114 H 20 136/89 97 05/26/18 15:00 05/26/18 15:00 05/26/18 15:00 05/26/18 15:00 05/26/18 15:00 Intake and Output: 05/26/18 05/26/18 06:59 18:59 Intake Total 330 Output Total 450 Balance -120 - Medications Medications: Current Medications Folic Acid (Folic Acid) 1 mg PO DAILY [facility] Last Admin: 05/26/18 10:41 Dose: 1 mg Gabapentin (Neurontin) 300 mg PO BID [facility] Last Admin: 05/26/18 10:41 Dose: 300 mg Meropenem 1 gm/ Sodium (Chloride) 100 mls @ 100 mls/hr IVPB Q8H [facility] Last Admin: 05/26/18 16:12 Dose: 100 mls/hr Sodium Chloride (Sodium Chloride 0.9%) 1,000 mls @ 100 mls/hr IV .Q10H [facility] Last Admin: 05/26/18 07:30 Dose: 100 mls/hr Dextrose (Dextrose 10% In Water) 1,000 mls @ 30 mls/hr IV .Q24H [facility] Last Admin: 05/26/18 14:32 Dose: Not Given Metronidazole (Flagyl) 500 mg in 100 mls @ 100 mls/hr IVPB Q8H [facility] PRN Reason: Protocol Last Admin: 05/26/18 12:21 Dose: 100 mls/hr Albumin Human (Albumin Human 25% (12.5 Gm/50 Ml)) 50 mls @ 200 mls/hr IV DAILY [facility] Last Admin: 05/26/18 10:39 Dose: 200 mls/hr Albumin Human (Albumin Human 25% (12.5 Gm/50 Ml)) 50 mls @ 200 mls/hr IV DAILY [facility] Last Admin: 05/26/18 11:02 Dose: 200 mls/hr Lactulose (Enulose) 30 gm NG TID [facility] Last Admin: 05/26/18 14:17 Dose: 30 gm Mirtazapine (Remeron) 15 mg PO HS [facility] Last Admin: 05/25/18 22:04 Dose: Not Given Pantoprazole Sodium (Protonix Inj) 40 mg IVP Q12H [facility] Last Admin: 05/26/18 10:41 Dose: 40 mg Rifaximin (Xifaxan) 550 mg NG BID [facility] PRN Reason: Protocol Thiamine HCl (Vitamin B1 Tab) 100 mg PO DAILY [facility] Last Admin: 05/26/18 10:42 Dose: 100 mg - Labs Labs: 05/26/18 06:57 05/26/18 06:57 PT 34.6 SECONDS (9.7-12.2) H* 05/26/18 06:57 INR 3.2 05/26/18 06:57 APTT 49 SECONDS (21-34) H 05/26/18 06:57 - Constitutional Appears: In Acute Distress - Head Exam Head Exam: ATRAUMATIC, NORMAL INSPECTION, NORMOCEPHALIC - Eye Exam Eye Exam: Scleral icterus - ENT Exam ENT Exam: Mucous Membranes Dry - Neck Exam Neck Exam: absent: Normal Inspection (distended neck veins) - Respiratory Exam Respiratory Exam: Accessory Muscle Use, Decreased Breath Sounds (decreased breath sounds on right lower). absent: Rhonchi, Wheezes - Cardiovascular Exam Cardiovascular Exam: Tachycardia, REGULAR RHYTHM, +S1, +S2. absent: Murmur - GI/Abdominal Exam GI & Abdominal Exam: Distended, Firm, Normal Bowel Sounds. absent: Soft - Extremities Exam Extremities Exam: Normal Capillary Refill, Normal Inspection. absent: Pedal Edema - Neurological Exam Neurological Exam: Altered. absent: Alert, Oriented x3 - Skin Skin Exam: Intact, Warm. 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 Hepatic Encephelopathy 05/25 U/S: Moderate ascites is demonstrated. Nodular hepatic contour is noted consistent with hepatic cirrhosis. Extensive ascites is not fully assessed but appears grossly similar to prior examination Likely secondary to cirrhosis- patient uses EtoH and has untreated Hep C infection Ascities noted- however too little fluid for tapping with thoracentesis NG tube in place due to AMS Lactulose 30mg NG TID Meld score: 40 f/u am ammonia xifaxan 500mg BID Ascites Thoracentesis not performed due to low fluid on imaging On Meropenem 1gm IVPB @ 100mls/ hr; Flagy @ 100mls/hr IVPB for empiric coverage albumin 25% x2 Hypoalbuminemia Albumin 25% x2 EtOH use disorder ativan d/c Folic acid 1mg po daily Thiamine 100mg po daily [facility] Depression Psych Consult- Ozden- Recommends patient be on Remeron 15mg po HS Insomnia Mirtazapine 15mg po HS Substance abuse- Heroin positive urine opiate screen methadone d/c PPx: GI ppx: Protonix 40mg IVP q12h DVT ppx: SCDs No VTE 2/2 thrombocytopenia <Hylton,Peter H - Last Filed: 05/26/18 17:18> Objective - Vital Signs/Intake and Output Vital Signs (last 24 hours): Temp Pulse Resp BP Pulse Ox 99.2 F 114 H 20 136/89 97 05/26/18 15:00 05/26/18 15:00 05/26/18 15:00 05/26/18 15:00 05/26/18 15:00 Intake and Output: 05/26/18 05/26/18 06:59 18:59 Intake Total 330 Output Total 450 Balance -120 - Medications Medications: Current Medications Folic Acid (Folic Acid) 1 mg PO DAILY [facility] Last Admin: 05/26/18 10:41 Dose: 1 mg Gabapentin (Neurontin) 300 mg PO BID [facility] Last Admin: 05/26/18 10:41 Dose: 300 mg Meropenem 1 gm/ Sodium (Chloride) 100 mls @ 100 mls/hr IVPB Q8H [facility] Last Admin: 05/26/18 16:12 Dose: 100 mls/hr Sodium Chloride (Sodium Chloride 0.9%) 1,000 mls @ 100 mls/hr IV .Q10H [facility] Last Admin: 05/26/18 07:30 Dose: 100 mls/hr Dextrose (Dextrose 10% In Water) 1,000 mls @ 30 mls/hr IV .Q24H [facility] Last Admin: 05/26/18 14:32 Dose: Not Given Metronidazole (Flagyl) 500 mg in 100 mls @ 100 mls/hr IVPB Q8H [facility] PRN Reason: Protocol Last Admin: 05/26/18 12:21 Dose: 100 mls/hr Albumin Human (Albumin Human 25% (12.5 Gm/50 Ml)) 50 mls @ 200 mls/hr IV DAILY [facility] Last Admin: 05/26/18 10:39 Dose: 200 mls/hr Albumin Human (Albumin Human 25% (12.5 Gm/50 Ml)) 50 mls @ 200 mls/hr IV DAILY [facility] Last Admin: 05/26/18 11:02 Dose: 200 mls/hr Lactulose (Enulose) 30 gm NG TID [facility] Last Admin: 05/26/18 14:17 Dose: 30 gm Mirtazapine (Remeron) 15 mg PO HS [facility] Last Admin: 05/25/18 22:04 Dose: Not Given Pantoprazole Sodium (Protonix Inj) 40 mg IVP Q12H [facility] Last Admin: 05/26/18 10:41 Dose: 40 mg Rifaximin (Xifaxan) 550 mg NG BID [facility] PRN Reason: Protocol Thiamine HCl (Vitamin B1 Tab) 100 mg PO DAILY [facility] Last Admin: 05/26/18 10:42 Dose: 100 mg - Labs Labs: 05/26/18 06:57 05/26/18 06:57 PT 34.6 SECONDS (9.7-12.2) H* 05/26/18 06:57 INR 3.2 05/26/18 06:57 APTT 49 SECONDS (21-34) H 05/26/18 06:57 Attending/Attestation - Attestation I have personally seen and examined this patient.: Yes I have fully participated in the care of the patient.: Yes I have reviewed all pertinent clinical information, including history, physical exam and plan: Yes Notes (Text): 05/26/18 17:10 Medical attending: Patient was seen and examined by me with the medical residents This is my first time meeting patient. He was non verbal and I had to discuss with the staff as well as go over the previous documentaion and lab work. This is a patient with a history of hepatitis C as well as liver cirrhosis , the patient has also history of polysubstance abuse as well. When he came in he intially had bandemia and CT imaging suggested a renal stone as well. Because of this he has been on IV abx. As of this morning the cultures have been negative. We will repeat cultures. Ideally I would like to do a paracentesis to aquire ascities fluid however I looked at the CT and there is very little room to do a paracentesis - the colon/ GI track is right up next to the abdominal wall so introducing a needle even with ultrasound is not possible. Also will recheck ammonia level as it was previously elevated and while he was ordered the lactulose it was not regularly being administered. Also will add on Xifaxin BID via the NGT as well. The patient did have a CT scan of the head as well and this was negative for any proccess. Overall situation/prognosis is not good. Patient is DNR and DNI Jian Hylton
[2018-05-26] MEDS ORDERED: Lactulose 10 gm/15 ml (Rectal Use) PR ONE (20:41)
--- NOTE | 2018-05-26 20:49 | CP.PCM.PN ---
Subjective - Date & Time of Evaluation Date of Evaluation: 05/26/18 Time of Evaluation: 20:30 - Subjective Subjective: House doctor called page for worsening respiratory status of patient Patient seen and examined at bedside. Patient saturating 87% on 3L nasal cannula. Patient using accessory muscles. Patient placed on non-rebreather. Oxygen increased to 100%. ICU consult ordered. Spoke to Dr. Colbetr. Lasix 40mg ivp ordered. Fluids stopped. Gabapentin discontinued. Patient has not had a bowel movement since moving up from ICU yesterday. Lactulose 200g pr stat. Lactulose 30gm ng q4h until bowel movement. Patient had a large watery brown bowel movement after the dose of Lactulose 200gr pr. Lactulose 30gm ng changed to q6h. Objective - Vital Signs/Intake and Output Vital Signs (last 24 hours): Temp Pulse Resp BP Pulse Ox 99.2 F 114 H 20 135/77 97 05/26/18 15:00 05/26/18 15:00 05/26/18 15:00 05/26/18 19:41 05/26/18 15:00 Intake and Output: 05/26/18 05/27/18 18:59 06:59 Intake Total 1015 Output Total 500 Balance 515 - Medications Medications: Current Medications Folic Acid (Folic Acid) 1 mg PO DAILY [facility] Last Admin: 05/26/18 10:41 Dose: 1 mg Meropenem 1 gm/ Sodium (Chloride) 100 mls @ 100 mls/hr IVPB Q8H [facility] Last Admin: 05/26/18 16:12 Dose: 100 mls/hr Dextrose (Dextrose 10% In Water) 1,000 mls @ 30 mls/hr IV .Q24H [facility] Last Admin: 05/26/18 14:32 Dose: Not Given Metronidazole (Flagyl) 500 mg in 100 mls @ 100 mls/hr IVPB Q8H [facility] PRN Reason: Protocol Last Admin: 05/26/18 19:41 Dose: 100 mls/hr Albumin Human (Albumin Human 25% (12.5 Gm/50 Ml)) 50 mls @ 200 mls/hr IV DAILY [facility] Last Admin: 05/26/18 10:39 Dose: 200 mls/hr Albumin Human (Albumin Human 25% (12.5 Gm/50 Ml)) 50 mls @ 200 mls/hr IV DAILY [facility] Last Admin: 05/26/18 11:02 Dose: 200 mls/hr Lactulose (Enulose) 30 gm NG Q4 [facility] Lactulose (Generlac) 200 gm [place] ONCE ONE Stop: 05/26/18 20:42 Mirtazapine (Remeron) 15 mg PO HS [facility] Last Admin: 05/25/18 22:04 Dose: Not Given Pantoprazole Sodium (Protonix Inj) 40 mg IVP Q12H [facility] Last Admin: 05/26/18 10:41 Dose: 40 mg Rifaximin (Xifaxan) 550 mg NG BID [facility] PRN Reason: Protocol Last Admin: 05/26/18 18:03 Dose: 550 mg Thiamine HCl (Vitamin B1 Tab) 100 mg PO DAILY [facility] Last Admin: 05/26/18 10:42 Dose: 100 mg - Labs Labs: 05/26/18 06:57 05/26/18 06:57 PT 34.6 SECONDS (9.7-12.2) H* 05/26/18 06:57 INR 3.2 05/26/18 06:57 APTT 49 SECONDS (21-34) H 05/26/18 06:57
[2018-05-27] MEDS: Meropenem 1 GM in Sodium Chloride 0.9% 100 ML IVPB SCH ×2 (00:24→08:21)
[2018-05-27] MEDS: metroNIDAZOLE IV 500 mg/100 ml 500 MG/100 ML BAG IVPB SCH ×2 (03:10→10:46)
--- NOTE | 2018-05-27 08:03 | RAD ---
Date of service: 05/26/2018 HISTORY: labored breathing COMPARISON: 05/25/2018. FINDINGS: LUNGS: There is interval worsening of patchy airspace disease in both lungs. PLEURA: No significant pleural effusion identified, no pneumothorax apparent. CARDIOVASCULAR: Stable. OSSEOUS STRUCTURES: No significant abnormalities. VISUALIZED UPPER ABDOMEN: Normal. OTHER FINDINGS: The nasogastric tube terminates in the stomach. IMPRESSION: Worsening multifocal pneumonia versus pulmonary edema.
[2018-05-27 08:16] LABS: BASO % 0.3 % (0.0-2.0); EOS # 0.3 K/uL (0.0-0.7); EOS % 2.5 % (0.0-4.0); HEMOGLOBIN 9.4 g/dL (12.0-18.0); LYMPH # 0.9 K/uL (1.0-4.3); MEAN CELL VOLUME 97.8 fL (80.0-94.0); MEAN CORPUSCULAR HEMOGLOBIN 34.5 pg (27.0-31.0); MEAN CORPUSCULAR HGB CONC 35.3 g/dL (33.0-37.0); MONO # 0.9 K/uL (0.0-0.8); MONO % 7.7 % (0.0-10.0); NEUT # 9.1 K/uL (1.8-7.0); NEUT % 81.5 % (50.0-75.0); NRBC % 0.3 % (0.0-2.0); PLATELET COUNT 45 K/uL (130-400); RBC 2.71 Mil/uL (4.40-5.90); RED CELL DISTRIBUTION WIDTH 17.3 % (11.5-14.5); WHITE BLOOD COUNT 11.2 K/uL (4.8-10.8)
[2018-05-27 08:29] LABS: ALB/GLOB RATIO 0.7 (1.0-2.1); ALBUMIN 2.7 g/dL (3.5-5.0); ALT/SGPT 41 U/L (21-72); AST/SGOT 94 U/L (17-59); BLOOD UREA NITROGEN 22 mg/dL (9-20); CALCIUM 9.1 mg/dl (8.6-10.4); GFR AFRICAN-AMERICAN > 60; GFR NON-AFRICAN AMERICAN > 60
[2018-05-27 09:31] LABS: EOSINOPHIL 1 % (0-4); LYMPHOCYTE 8 % (20-40); MONOCYTE 6 % (0-10); NEUTROPHIL 85 % (50-75); NUCLEATED RED BLOOD CELL 1 % (0-0); PLATELET ESTIMATE DECREASED (NORMAL); TOTAL CELLS COUNTED 100
[2018-05-27 09:32] LABS: ANISOCYTOSIS SLIGHT; HYPOCHROMIC SLIGHT; OVALOCYTES SLIGHT; POIKILOCYTOSIS SLIGHT; POLYCHROMIC SLIGHT; TEARDROP CELLS SLIGHT
--- NOTE | 2018-05-27 11:26 | CP.PCM.PN ---
<Idalia Colon - Last Filed: 05/27/18 11:23> Subjective - Date & Time of Evaluation Date of Evaluation: 05/27/18 Time of Evaluation: 11:23 - Subjective Subjective: PGY-1 Medicine Progress Note for Dr. Hylton's service Patient seen and examined at bedside. Patient ROS limited secondary to clinical condition. Patient's mom was at bedside and it was explained to her that the prognosis is poor. She was emotional but understood the situation and hospice evaluation is being considered. Objective - Vital Signs/Intake and Output Vital Signs (last 24 hours): Temp Pulse Resp BP Pulse Ox 99.6 F 117 H 24 125/75 98 05/27/18 07:00 05/27/18 07:00 05/27/18 07:00 05/27/18 07:00 05/27/18 07:00 Intake and Output: 05/27/18 05/27/18 06:59 18:59 Intake Total 1225 Output Total 600 Balance 625 - Medications Medications: Current Medications Folic Acid (Folic Acid) 1 mg PO DAILY [facility] Last Admin: 05/27/18 09:59 Dose: 1 mg Furosemide (Lasix) 20 mg PO BID [facility] Meropenem 1 gm/ Sodium (Chloride) 100 mls @ 100 mls/hr IVPB Q8H [facility] Last Admin: 05/27/18 08:21 Dose: 100 mls/hr Dextrose (Dextrose 10% In Water) 1,000 mls @ 30 mls/hr IV .Q24H [facility] Last Admin: 05/27/18 11:04 Dose: 30 mls/hr Metronidazole (Flagyl) 500 mg in 100 mls @ 100 mls/hr IVPB Q8H [facility] PRN Reason: Protocol Last Admin: 05/27/18 10:46 Dose: 100 mls/hr Albumin Human (Albumin Human 25% (12.5 Gm/50 Ml)) 50 mls @ 200 mls/hr IV DAILY [facility] Last Admin: 05/27/18 10:20 Dose: 200 mls/hr Albumin Human (Albumin Human 25% (12.5 Gm/50 Ml)) 50 mls @ 200 mls/hr IV DAILY [facility] Last Admin: 05/27/18 10:46 Dose: 200 mls/hr Lactulose (Enulose) 30 gm NG Q6 [facility] Last Admin: 08/17/18 05:17 Dose: 30 gm Mirtazapine (Remeron) 15 mg PO HS [facility] Last Admin: 05/26/18 22:03 Dose: 15 mg Pantoprazole Sodium (Protonix Inj) 40 mg IVP Q12H [facility] Last Admin: 05/27/18 09:59 Dose: 40 mg Rifaximin (Xifaxan) 550 mg NG BID [facility] PRN Reason: Protocol Last Admin: 05/27/18 09:59 Dose: 550 mg Thiamine HCl (Vitamin B1 Tab) 100 mg PO DAILY [facility] Last Admin: 05/27/18 09:59 Dose: 100 mg - Labs Labs: 05/27/18 08:05 05/27/18 08:05 PT 44.0 SECONDS (9.7-12.2) H* D 05/27/18 08:05 INR 4.0 05/27/18 08:05 APTT 54 SECONDS (21-34) H D 05/27/18 08:05 - Constitutional Appears: Toxic - Head Exam Head Exam: NORMAL INSPECTION, NORMOCEPHALIC - Eye Exam Eye Exam: EOMI, Normal appearance, Scleral icterus. absent: Nystagmus - ENT Exam ENT Exam: Mucous Membranes Dry - Respiratory Exam Respiratory Exam: Rales, Respiratory Distress. absent: Clear to Ausculation Bilateral, NORMAL BREATHING PATTERN Additional comments: on bipap - Cardiovascular Exam Cardiovascular Exam: Tachycardia, REGULAR RHYTHM, +S1, +S2 - GI/Abdominal Exam GI & Abdominal Exam: Distended, Normal Bowel Sounds. absent: Firm, Guarding, Rigid, Soft, Tenderness - Extremities Exam Extremities Exam: Normal Inspection. absent: Pedal Edema - Neurological Exam Neurological Exam: absent: Alert, Awake, Oriented x3 - Psychiatric Exam Psychiatric exam: absent: Normal Affect, Normal Mood - Skin Skin Exam: Intact, Normal Color Assessment and Plan - Assessment and Plan (Free Text) Assessment: 47 y.o male with PMH hepatic encephelopathy 2/2 to cirrhosis, untreated cirrhosis, pancytopenia, nephrolithiasis, polysubstance abuse, and splenomegaly presents to the ED with abdominal pain. Plan: Hepatic Encephelopathy 05/25 U/S: Moderate ascites is demonstrated. Nodular hepatic contour is noted consistent with hepatic cirrhosis. Extensive ascites is not fully assessed but appears grossly similar to prior examination Likely secondary to cirrhosis- patient uses EtoH and has untreated Hep C infection Ascities noted- however to little fluid for tapping with thoracentesis; Lasix 20mg po bid NG tube in place due to AMS; Dextrose 10% in water @30mls/hr Lactulose 30mg NG TID Meld score: 40 Ascites Thoracentesis not performed due to low fluid in imaging On Meropenem 1gm IVPB @ 100mls/ hr; Flagy @ 100mls/hr IVPB for emperic coverage , Rifaximin 550mg ng bid [facility] Hypoalbuminemia Albumin 200mls/hr EtOH use disorder CIWA protocol Lorazepam 1mg po bid [facility] Folic acid 1mg po daily Thiamine 100mg po daily [facility] Depression Psych Consult- Ozden- Recommends patient be on Remeron 15mg po HS Insomnia Mirtazapine 15mg po HS Substance abuse- Heroin positive urine opiate screen Psych Consult- Ozden- Recommdends patient be on Methadone 10mg po q24h PPx: GI ppx: Protonix 40mg IVP q12h DVT ppx: SCDs; No VTE 2/2 thrombocytopenia <Hylton,Peter H - Last Filed: 05/27/18 12:50> Objective - Vital Signs/Intake and Output Vital Signs (last 24 hours): Temp Pulse Resp BP Pulse Ox 99.6 F 117 H 24 125/75 98 05/27/18 07:00 05/27/18 07:00 05/27/18 07:00 05/27/18 11:55 05/27/18 07:00 Intake and Output: 05/27/18 05/27/18 06:59 18:59 Intake Total 1225 Output Total 600 Balance 625 - Medications Medications: Current Medications Morphine Sulfate 250 mg/ (Dextrose) 250 mls @ 1 mls/hr IV .Q24H PRN; Protocol PRN Reason: Patient is hospice - Labs Labs: 05/27/18 08:05 05/27/18 08:05 PT 44.0 SECONDS (9.7-12.2) H* D 05/27/18 08:05 INR 4.0 05/27/18 08:05 APTT 54 SECONDS (21-34) H D 05/27/18 08:05 Attending/Attestation - Attestation I have personally seen and examined this patient.: Yes I have fully participated in the care of the patient.: Yes I have reviewed all pertinent clinical information, including history, physical exam and plan: Yes Notes (Text): 05/27/18 12:45 Medical attending: Patient was seen and examined by me. Agree with the above note by the resident The patient situation overnight was very poor. He remains non verbal and difficult to arouse. He was placed on Bipap overnight since his SpO2s were so low. The team overnight were concerned he may . Per discussion with family at bedside today the family member understood situation was very poor. We had to ask script girl for help. I consolled Appreciate palliative care seeing patient as well. After discussion family member wanted hospice to be done. IV abx and IVF stopped. For now continue on Bipap and also patient will be on low dose morphine ggt for comfort. Jian Hylton
--- NOTE | 2018-05-27 12:56 | CP.PCM.PN ---
Subjective - Date & Time of Evaluation Date of Evaluation: 05/27/18 Time of Evaluation: 12:53 - Subjective Subjective: I was called by clinical medical assistant Doctor Daniel to re evaluate paient for possible hospice care as patient's condition has worsened. Patient is now on BiPap, O2 Sat 93 %, patient is lethargic. Hs mother is at bed side holding his hand ans asking " no to let him suffer". Objective - Vital Signs/Intake and Output Vital Signs (last 24 hours): Temp Pulse Resp BP Pulse Ox 99.6 F 117 H 24 125/75 98 05/27/18 07:00 05/27/18 07:00 05/27/18 07:00 05/27/18 11:55 05/27/18 07:00 Intake and Output: 05/27/18 05/27/18 06:59 18:59 Intake Total 1225 Output Total 600 Balance 625 - Medications Medications: Current Medications Morphine Sulfate 250 mg/ (Dextrose) 250 mls @ 1 mls/hr IV .Q24H PRN; Protocol PRN Reason: Patient is hospice - Labs Labs: 05/27/18 08:05 05/27/18 08:05 PT 44.0 SECONDS (9.7-12.2) H* D 05/27/18 08:05 INR 4.0 05/27/18 08:05 APTT 54 SECONDS (21-34) H D 05/27/18 08:05 - Constitutional Appears: In Acute Distress, Chronically Ill - Head Exam Head Exam: ATRAUMATIC, NORMAL INSPECTION, NORMOCEPHALIC - Eye Exam Eye Exam: EOMI, Normal appearance, PERRL Pupil Exam: NORMAL ACCOMODATION, PERRL - ENT Exam ENT Exam: Mucous Membranes Dry Additional comments: NGT in place - Neck Exam Neck Exam: Normal Inspection - Respiratory Exam Respiratory Exam: Accessory Muscle Use - Cardiovascular Exam Cardiovascular Exam: Tachycardia - GI/Abdominal Exam GI & Abdominal Exam: Firm - Rectal Exam Rectal Exam: Deferred - Exam Exam: NORMAL INSPECTION - Extremities Exam Extremities Exam: Normal Inspection - Back Exam Back Exam: NORMAL INSPECTION - Neurological Exam Neurological Exam: Altered Neuro motor strength exam: Left Upper Extremity: 2/1, Right Upper Extremity: 2/1 , Left Lower Extremity: 2/1, Right Lower Extremity: 2/1 - Psychiatric Exam Psychiatric exam: Flat Affect - Skin Skin Exam: Pallor Additional comments: jaundiced Assessment and Plan - Assessment and Plan (Free Text) Assessment: Palliative progress note Patient examined in bed with mother at bed side who is holding his hand. Patient looks very ill in acute respiratory distress with BiPap on. Skin is jaundiced, sclera icteric. NGT with blood tinted secretion. Eyes closed. Patient is lethargic, keeps eyes closed, does not react to touch/voice. Patient was seen by Doctor Rao LUNA, and no further interventions were advised. Patient is not candidate for paracentesis either due to proximity of colon and liver. HR 117-125, PT/INR 44/4.0, Na 151, T Ruperto 25.3 Patient's very critical condition was discussed with his mother at bed side. Patient's ex was on the phone and mother asked me to talk to her as well. I shared with both of them that Medical team feels that patient is doing very poorly and at this stage of his disease we do not have to offer anything but comfort care. I explained what comfort care ment and that patient is expected to while on comfort care. Leonila cried and asked " no to let him suffer any more". I also explained that we will most likely start Morphine drip to easy respiratory distress and that Morphine will at the same time decrease respiratory effort and promote Natural . Mother and stated understanding and agreed. I asked the ex to get in touch with patient's son and ask him to get here right away, and she agreed. Soon after, I spoke to patient's son and told him what I have discussed with his mother and grandmother. he stated understanding and agreed with comfort care as well. He works in [employer] and was on his way to here. This was shared with nursing staff, advanced manufacturing vice president and nurse case manager. I suggested the Hospice eval was called and Morphine drip initiated once advanced manufacturing vice president speaks to Doctor Concetta. Impression * Chronically ill male in acute respiratory distress * I feel patient will during this hospitalization * Mother at bed side and concerned with patient's comfort * Patient's son who is a [employer] and the rest of family, mother and ex agreed with comfort care Suggestions * Would admit to inhouse hospice * Initiate Comfort care orders ( already bullt in [facility]) * Pastoral visit for spiritual support * DNR/DNI After my physical exam I sent another 40 min in Advance care planing.
[2018-05-27] MEDS ORDERED: Morphine Sulfate 250 MG in Dextrose 5% In Water 240 ML IV PRN ×2 (13:00→16:12)
--- NOTE | 2018-05-27 15:05 | PN ---
Copied To: Ken Vides MD Attending MD: Ken Vides MD DATE: 05/27/2018 LOCATION 358, bed B. SUBJECTIVE: This is a 47-year-old male seen and examined in rounds, in a status of DNR and DNI, reported no significant clinical changes, appears to be somewhat lethargic, respond on occasion to painful stimuli, had been on BiPAP. The entire chart is reviewed including but not limited to the most recent lab and radiology study results, current and the previous medication list, current and the previous medical events. Case discussed with the staff at length. LABORATORY DATA: Today's lab showed white blood cells of 11.2, hemoglobin 9.4, hematocrit 26.5 with thrombocytopenia of 45 and PT of 44, creatinine 54, sodium 151, BUN 22, total bilirubin of 25.3, AST 94 with ammonia level still elevated at 51, albumin 2.7. PHYSICAL EXAMINATION: GENERAL: A 47-year-old male. VITAL SIGNS: Afebrile with low grade temperature of 99.6, heart rate of 110, respiratory rate 20 to 24 with blood pressure of 130/72. HEENT: Showed pale, dry oral mucous membrane. Nonicteric sclerae. LUNGS: Few scattered crepitation. Decreased air entry at bases. HEART: Positive S1 and S2 with increased rate. ABDOMEN: With [id number] distention, positive for mild ascites. No mass or organomegaly could be appreciated. EXTREMITIES: With lower extremity edematous changes. No clubbing or cyanosis. NEUROLOGIC: No reported new neurological deficits, sensory or motor. IMPRESSION: 1. Liver cirrhosis, alcohol induced. 2. Known history of viral hepatitis. 3. Portal hypertension with ascites. 4. Abnormal liver function test with jaundice secondary to above. 5. Coagulopathy secondary to above. 6. Hepatic encephalopathy, slightly increasing. 7. Thrombocytopenia due to above most likely. SUGGESTIONS: 1. Agree with your plan. 2. Add neomycin p.o. . 3. Peripheral hyperalimentation. 4. No aggressive GI workup in the meantime. Further evaluation to follow. Ken Vides MD [facility] # [id number]
[2018-05-27 16:11] VITALS: RESP 22
--- NOTE | 2018-05-27 18:17 | CP.PCM.PN ---
Subjective - Date & Time of Evaluation Date of Evaluation: 05/27/18 Time of Evaluation: 09:00 - Subjective Subjective: no new positive cultures iv rx in progress Objective - Vital Signs/Intake and Output Vital Signs (last 24 hours): Temp Pulse Resp BP Pulse Ox 98.6 F 115 H 22 118/77 96 05/27/18 16:09 05/27/18 16:16 05/27/18 16:09 05/27/18 16:09 05/27/18 16:09 Intake and Output: 05/27/18 05/27/18 06:59 18:59 Intake Total 1225 400 Output Total 600 250 Balance 625 150 - Medications Medications: Current Medications Acetaminophen (Tylenol 650 Mg Supp) 650 mg TN Q4 PRN PRN Reason: Pain, Mild (1-3) Morphine Sulfate 250 mg/ (Dextrose) 250 mls @ 1 mls/hr IV .Q24H PRN; Protocol PRN Reason: comfort Lactulose (Enulose) 20 gm PO DAILY ROBYN Last Admin: 05/27/18 13:14 Dose: Not Given Lorazepam (Ativan) 1 mg IVP Q4 PRN; Protocol PRN Reason: comfort Last Admin: 05/27/18 16:24 Dose: 1 mg Ondansetron HCl (Zofran Inj) 4 mg IVP Q4H PRN PRN Reason: Nausea/Vomiting - Labs Labs: 05/27/18 08:05 05/27/18 08:05 PT 44.0 SECONDS (9.7-12.2) H* D 05/27/18 08:05 INR 4.0 05/27/18 08:05 APTT 54 SECONDS (21-34) H D 05/27/18 08:05 - Constitutional Appears: Confused - Head Exam Head Exam: NORMOCEPHALIC - Eye Exam Eye Exam: absent: Scleral icterus - ENT Exam ENT Exam: Mucous Membranes Dry - Neck Exam Neck Exam: absent: Lymphadenopathy - Respiratory Exam Respiratory Exam: Decreased Breath Sounds - Cardiovascular Exam Cardiovascular Exam: REGULAR RHYTHM - GI/Abdominal Exam GI & Abdominal Exam: Distended, Soft Assessment and Plan (1) Colitis Status: Acute (2) Renal stone Status: Acute (3) Severe sepsis Status: Acute (4) UTI (urinary tract infection) Status: Acute (5) Abdominal pain Status: Acute
[2018-05-27 23:39] VITALS: TEMP 98.3
[2018-05-28 08:01] VITALS: BP 139/74; PULSE 112; O2SAT 93
[2018-05-28] MEDS ORDERED: Morphine Sulfate 250 MG in Dextrose 5% In Water 240 ML IV PRN (11:52)
--- NOTE | 2018-05-28 13:00 | PN ---
Copied To: Ken Vides MD Attending MD: Ken Vides MD DATE: 05/28/2018 LOCATION: 355. SUBJECTIVE: This is a 47-year-old male, seen and examined early in rounds, on morphine IV drip, by he is with reported period of restless and some agitation, for which Ativan also added to his regimen, but reported no active bleeding. The patient in a state of DNR and DNI, reported no actual chest pain, palpitation, but [id number] periods of shortness of breath. No chills or fever. The entire chart is reviewed including, but not limited to the most recent lab and radiology study results, current and the previous medication list, current and the previous medical events and the latest blood glucose level is 86. Today's lab results still pending. PHYSICAL EXAMINATION: GENERAL: A 47-year-old male. VITAL SIGNS: Afebrile with pulse of 110, blood pressure 150/74 with respiratory rate 20 to 24. HEENT: Showed pale, dry oral mucous membrane with neck covered with clean dressing. LUNGS: Scattered crepitation with decreased air entry at bases. HEART: Positive S1 and S2. ABDOMEN: Soft. Bowel sounds are present with slight generalized tenderness, but mildly distended. No mass or organomegaly. NEUROLOGIC: No reported new neurological deficits, sensory or motor. IMPRESSION: 1. Abnormal liver function test with liver cirrhosis, secondary to alcoholism. 2. Known history of viral hepatitis. 3. Ascites with evidence of portal hypertension. 4. Hepatic encephalopathy, mildly improving. 5. Thrombocytopenia, secondary to above. 6. Nephrolithiasis, by radiology study results. 7. , by the infectious disease institutional nutrition consultant. 8. Urinary tract infection by recent history. SUGGESTIONS: 1. Continue current management. 2. Guaiac all the stool everyday x3. 3. Follow up in cancer marker. Ken Vides MD
--- NOTE | 2018-05-28 18:56 | CP.PCM.DIS ---
Provider - Provider Date of Admission: 05/22/18 21:17 Attending physician: Cameron Flor MD Primary care physician: Basia Consults: CONOR Spicer Obishmael Jordan Time Spent in preparation of Discharge (in minutes): 40 Hospital Course - Lab Results Lab Results: Micro Results 05/27/18 08:30 Blood-Venous Blood Culture - Preliminary NO GROWTH AFTER 24 HOURS 05/27/18 08:05 Blood-Venous Blood Culture - Preliminary NO GROWTH AFTER 24 HOURS 05/22/18 06:41 Blood-Venous Blood Culture - Final NO GROWTH AFTER 5 DAYS 05/22/18 06:41 Blood-Venous Gram Stain - Final TEST NOT PERFORMED 05/22/18 06:41 Blood-Venous Blood Culture - Final NO GROWTH AFTER 5 DAYS 05/22/18 06:41 Blood-Venous Gram Stain - Final TEST NOT PERFORMED 05/25/18 08:48 Naris MRSA Culture - Final MRSA NOT DETECTED 05/22/18 09:30 Nose MRSA Culture (Admit) - Final MRSA NOT DETECTED 05/22/18 18:52 Urine,Clean Catch Urine Culture - Final No Growth (<1,000 CFU/ML) Most Recent Lab Values WBC 11.2 K/uL (4.8-10.8) H 05/27/18 08:05 RBC 2.71 Mil/uL (4.40-5.90) L 05/27/18 08:05 Hgb 9.4 g/dL (12.0-18.0) L 05/27/18 08:05 Hct 26.5 % (35.0-51.0) L 05/27/18 08:05 MCV 97.8 fL (80.0-94.0) H 05/27/18 08:05 MCH 34.5 pg (27.0-31.0) H 05/27/18 08:05 MCHC 35.3 g/dL (33.0-37.0) 05/27/18 08:05 RDW 17.3 % (11.5-14.5) H 05/27/18 08:05 Plt Count 45 K/uL (130-400) L 05/27/18 08:05 MPV 11.0 fL (7.2-11.7) 05/27/18 08:05 Neut % (Auto) 81.5 % (50.0-75.0) H 05/27/18 08:05 Lymph % (Auto) 8.0 % (20.0-40.0) L 05/27/18 08:05 [place] % (Auto) 7.7 % (0.0-10.0) 05/27/18 08:05 Eos % (Auto) 2.5 % (0.0-4.0) 05/27/18 08:05 Baso % (Auto) 0.3 % (0.0-2.0) 05/27/18 08:05 Neut # (Auto) 9.1 K/uL (1.8-7.0) H 05/27/18 08:05 Lymph # (Auto) 0.9 K/uL (1.0-4.3) L 05/27/18 08:05 [place] # (Auto) 0.9 K/uL (0.0-0.8) H 05/27/18 08:05 Eos # (Auto) 0.3 K/uL (0.0-0.7) 05/27/18 08:05 Baso # (Auto) 0.0 K/uL (0.0-0.2) 05/27/18 08:05 Neutrophils % (Manual) 85 % (50-75) H 05/27/18 08:05 Band Neutrophils % 2 % (0-2) 05/24/18 06:07 Lymphocytes % (Manual) 8 % (20-40) L 05/27/18 08:05 Monocytes % (Manual) 6 % (0-10) 05/27/18 08:05 Eosinophils % (Manual) 1 % (0-4) 05/27/18 08:05 Metamyelocytes % 1 % (0-0) H 05/22/18 18:52 Nucleated RBC % 1 % (0-0) H 05/27/18 08:05 Toxic Granulation Present 05/22/18 18:52 Platelet Estimate Decreased (NORMAL) L 05/27/18 08:05 Polychromasia Slight 05/27/18 08:05 Hypochromasia (manual) Slight 05/27/18 08:05 Poikilocytosis (manual Slight 05/27/18 08:05 Anisocytosis (manual) Slight 05/27/18 08:05 Microcytosis (manual) Slight 05/24/18 06:07 Macrocytosis (manual) Slight 05/22/18 18:52 Target Cells Slight 05/26/18 06:57 Tear Drop Cells Slight 05/27/18 08:05 Ovalocytes Slight 05/27/18 08:05 Brandy Cells Slight 05/22/18 18:52 Schistocytes Slight 05/22/18 18:52 PT 44.0 SECONDS (9.7-12.2) H* D 05/27/18 08:05 INR 4.0 05/27/18 08:05 APTT 54 SECONDS (21-34) H D 05/27/18 08:05 pO2 42 mm/Hg (30-55) 05/22/18 19:40 VBG pH 7.29 (7.32-7.43) L 05/22/18 19:40 VBG pCO2 34 mmHg (40-60) L 05/22/18 19:40 VBG HCO3 16.9 mmol/L 05/22/18 19:40 VBG Total CO2 17.3 mmol/L (22-28) L 05/22/18 19:40 VBG O2 Sat (Calc) 74.6 % (40-65) H 05/22/18 19:40 VBG Base Excess -9.3 mmol/L (0.0-2.0) L 05/22/18 19:40 VBG Potassium 4.8 mmol/L (3.6-5.2) 05/22/18 19:40 Sodium 134.0 mmol/l (132-148) 05/22/18 19:40 Chloride 103.0 mmol/L (98-107) 05/22/18 19:40 Glucose 99 mg/dl (75-110) 05/22/18 19:40 Lactate 6.1 mmol/L (0.7-2.1) H* 05/22/18 19:40 Crit Value Called To Er nurse 05/22/18 19:40 Crit Value Called By Courtney rt 05/22/18 19:40 Crit Value Read Back Y 05/22/18 19:40 Blood Gas Notified Time 194405/22/18 19:40 Sodium 151 mmol/L (132-148) H 05/27/18 08:05 Potassium 4.0 mmol/L (3.6-5.2) 05/27/18 08:05 Chloride 115 mmol/L (98-107) H 05/27/18 08:05 Carbon Dioxide 25 mmol/L (22-30) 05/27/18 08:05 Anion Gap 15 (10-20) 05/27/18 08:05 BUN 22 mg/dL (9-20) H 05/27/18 08:05 Creatinine 0.8 mg/dL (0.8-1.5) 05/27/18 08:05 Est GFR ( Amer) > 60 05/27/18 08:05 Est GFR (Non-Af Amer) > 60 05/27/18 08:05 POC Glucose (mg/dL) 86 mg/dL (65-110) 05/27/18 16:16 Random Glucose 95 mg/dL (75-110) 05/27/18 08:05 Lactic Acid 1.4 mmol/L (0.7-2.1) 05/24/18 06:07 Calcium 9.1 mg/dl (8.6-10.4) 05/27/18 08:05 Phosphorus 2.7 mg/dL (2.5-4.5) 05/27/18 08:05 Magnesium 1.7 mg/dL (1.6-2.3) 05/27/18 08:05 Total Bilirubin 25.3 mg/dL (0.2-1.3) H 05/27/18 08:05 AST 94 U/L (17-59) H 05/27/18 08:05 ALT 41 U/L (21-72) 05/27/18 08:05 Alkaline Phosphatase 110 U/L (38-126) 05/27/18 08:05 Ammonia 51 umol/L (9-33) H 05/27/18 08:05 NT-Pro-B Natriuret Pep 1580 pg/mL (0-450) H 05/23/18 06:17 Total Protein 6.7 g/dL (6.3-8.3) 05/27/18 08:05 Albumin 2.7 g/dL (3.5-5.0) L 05/27/18 08:05 Globulin 4.0 gm/dL (2.2-3.9) H 05/27/18 08:05 Albumin/Globulin Ratio 0.7 (1.0-2.1) L 08/17/18 08:05 Lipase 611 U/L (23-300) H 05/22/18 18:52 Alpha Fetoprotein 1.9 ng/mL (0.0-7.5) 05/23/18 06:17 Venous Blood Potassium 4.8 mmol/L (3.6-5.2) 05/22/18 19:40 Urine Color [place] (YELLOW) 05/22/18 18:52 Urine Clarity Hazy (Clear) 05/22/18 18:52 Urine pH 5.0 (5.0-8.0) 08 18:52 Ur Specific [place] 1.016 (1.003-1.030) 05/22/18 18:52 Urine Protein 1+ mg/dL (NEGATIVE) H 05/22/18 18:52 Urine Glucose (UA) Normal mg/dL (Normal) 05/22/18 18:52 Urine Ketones Negative mg/dL (NEGATIVE) 05/22/18 18:52 Urine Blood 3+ (NEGATIVE) H 05/22/18 18:52 Urine Nitrate Negative (NEGATIVE) 05/22/18 18:52 Urine Bilirubin 1+ (NEGATIVE) H 05/22/18 18:52 Urine Urobilinogen 4.0 mg/dL (0.2-1.0) 08 18:52 Ur Leukocyte Esterase 3+ Nancy/uL (Negative) H 05/22/18 18:52 Urine WBC (Auto) 451 /hpf (0-5) H 05/22/18 18:52 Urine RBC (Auto) 228 /hpf (0-3) H 05/22/18 18:52 Ur Squamous Epith Cells 1 /hpf (0-5) 05/22/18 18:52 Urine Bacteria Many (<OCC) H 05/22/18 18:52 Hyaline Casts 11-20 /lpf (0-2) H 05/22/18 18:52 Urine Yeast (Budding) Occ /hpf (NEGATIVE) H 05/22/18 18:52 Ur Random Creatinine 173.4 mg/dL 05/23/18 11:53 Ur Random Sodium 22 mmol/L 05/23/18 11:53 Stool Leukocytes, Qual Negative (NEGATIVE) 05/25/18 15:59 Urine Opiates Screen Positive (NEGATIVE) H 05/22/18 18:52 Urine Methadone Screen Negative (NEGATIVE) 05/22/18 18:52 Ur Barbiturates Screen Negative (NEGATIVE) 05/22/18 18:52 Ur Phencyclidine Scrn Negative (NEGATIVE) 05/22/18 18:52 Ur Amphetamines Screen Negative (NEGATIVE) 05/22/18 18:52 U Benzodiazepines Scrn Positive (NEGATIVE) 05/22/18 18:52 U Oth Cocaine Metabols Negative (NEGATIVE) 05/22/18 18:52 U Cannabinoids Screen Negative (NEGATIVE) 05/22/18 18:52 Alcohol, Quantitative < 10 mg/dl (0-10) 05/22/18 18:52 C. difficile Ag & Toxin Negative (NEGATIVE) 05/25/18 15:59 Blood Type A POSITIVE 05/24/18 11:03 Antibody Screen Negative 05/24/18 11:03 - Hospital Course Hospital Course: Hospitalist Discharge Summary Please see Assessment and Plans below for full details of this patient's hospital stay Spoke with [facility] Manager Alis Ramos who has accepted patient into in-patient hospice. Also informed patient's Mom Cheri [phone] and Son Isaiah [phone] both of whom who were at bedside. Patient was started on Morphine Drip and it was increased to 2 mg/hour as patient looked uncomfortable. [facility] procedure requires patient to be discharged and then re-admitted to in-patient hospice. - Constitutional Appears: Toxic - Head Exam Head Exam: NORMAL INSPECTION, NORMOCEPHALIC - Eye Exam Eye Exam: EOMI, Scleral icterus. absent: Nystagmus - ENT Exam ENT Exam: Mucous Membranes Dry - Respiratory Exam Respiratory Exam: Rales, Respiratory Distress. Using accessory muscle of respiration (abdominal breathing) absent: Clear to Auscultation Bilateral, NORMAL BREATHING PATTERN Additional comments: on bipap 09/15 40% - Cardiovascular Exam Cardiovascular Exam: Tachycardia, REGULAR RHYTHM, +S1, +S2 - GI/Abdominal Exam GI & Abdominal Exam: Distended, Bowel Sounds were decreased. absent: Firm, Guarding, Rigid, Soft, Tenderness - Extremities Exam Extremities Exam: Normal Inspection. absent: Pedal Edema - Neurological Exam Neurological Exam: patient does not respond to any questioning absent: Alert, Awake, Oriented x3 - Psychiatric Exam Psychiatric exam: absent: Normal Affect, Normal Mood - Skin Skin Exam: Intact, Normal Color Assessment and Plan - Assessment and Plan (Free Text) Assessment: 47 y.o male with PMH hepatic encephelopathy 2/2 to cirrhosis, untreated cirrhosis, pancytopenia, nephrolithiasis, polysubstance abuse, and splenomegaly presents to the ED with abdominal pain. Plan: Hepatic Encephelopathy 05/25 U/S: Moderate ascites is demonstrated. Nodular hepatic contour is noted consistent with hepatic cirrhosis. Extensive ascites is not fully assessed but appears grossly similar to prior examination Likely secondary to cirrhosis- patient uses EtoH and has untreated Hep C infection Ascities noted- however to little fluid for tapping with thoracentesis; Lasix 20mg po bid NG tube in place due to AMS; Dextrose 10% in water @30mls/hr Lactulose 30mg NG TID Meld score: 40 Ascites Thoracentesis not performed due to low fluid in imaging On Meropenem 1gm IVPB @ 100mls/ hr; Flagy @ 100mls/hr IVPB for emperic coverage , Rifaximin 550mg ng bid blayne Multifocal Pneumonia Metronidazole 500 mg IV Q8H Meropenem 1 gm IV Q8H Blood Culture 05/22/18 negative to date Urine Culture 05/22/18 shows NO growth Hypoalbuminemia Albumin 200mls/hr EtOH use disorder CIWA protocol Lorazepam 1mg po bid blayne Folic acid 1mg po daily Thiamine 100mg po daily blayne Depression Psych Consult- Ozden- Recommends patient be on Remeron 15mg po HS Insomnia Mirtazapine 15mg po HS Substance abuse- Heroin positive urine opiate screen Psych Consult- Ozden- Recommdends patient be on Methadone 10mg po q24h PPx: GI ppx: Protonix 40mg IVP q12h DVT ppx: SCDs; No VTE 2/2 thrombocytopenia Guerrero Estrella D.O. Discharge Exam - Head Exam Head Exam: NORMOCEPHALIC Discharge Plan - Follow Up Plan Condition: CRITICAL Disposition: HOSPICE - MEDICAL FACILITY
== END 2018-05-28 14:19 | disposition hospice, inpatient (51) | DRG 584 ==
LOC: C.ER 17:29 → C.9E 21:17 → C.9I 21:41 → C.3T 05-25 21:19
PROVIDERS: ADMIT Internal Medicine; ATTEND Internal Medicine
PROC: 30233K1 Transfusion of Nonautologous Frozen Plasma into Peripheral Vein, Percutaneous Approach (ICD-10-PCS; principal; 2018-05-24)
DX: A41.9 Sepsis, unspecified organism (principal); K72.90 Hepatic failure, unspecified without coma; K70.31 Alcoholic cirrhosis of liver with ascites; R65.21 Severe sepsis with septic shock; N17.9 Acute kidney failure, unspecified; J18.9 Pneumonia, unspecified organism; G92 Toxic encephalopathy; R32 Unspecified urinary incontinence; N13.6 Pyonephrosis; I50.9 Heart failure, unspecified; F11.23 Opioid dependence with withdrawal; E87.2 Acidosis; D69.59 Other secondary thrombocytopenia; B19.20 Unspecified viral hepatitis C without hepatic coma; E86.9 Volume depletion, unspecified; K76.6 Portal hypertension; K70.11 Alcoholic hepatitis with ascites; K52.9 Noninfective gastroenteritis and colitis, unspecified; K40.90 Unilateral inguinal hernia, without obstruction or gangrene, not specified as recurrent; K27.9 Peptic ulcer, site unspecified, unspecified as acute or chronic, without hemorrhage or perforation; J45.909 Unspecified asthma, uncomplicated; G47.00 Insomnia, unspecified; F32.9 Major depressive disorder, single episode, unspecified; F17.210 Nicotine dependence, cigarettes, uncomplicated; F10.20 Alcohol dependence, uncomplicated; E88.09 Other disorders of plasma-protein metabolism, not elsewhere classified; D72.819 Decreased white blood cell count, unspecified; D68.9 Coagulation defect, unspecified; D64.9 Anemia, unspecified; K42.9 Umbilical hernia without obstruction or gangrene; Z66 Do not resuscitate; Z51.5 Encounter for palliative care; Z53.8 Procedure and treatment not carried out for other reasons; Z87.442 Personal history of urinary calculi; Z79.899 Other long term (current) drug therapy; Z91.19 Patient's noncompliance with other medical treatment and regimen

== ENCOUNTER 2018-05-28 13:58 | Inpatient (IN) | payer OTHER ==
[2018-05-28] MEDS ORDERED: Hyoscyamine 0.125 mg SL Tab SL PRN (16:06)
--- NOTE | 2018-05-28 18:57 | CP.PCM.HP ---
History of Present Illness - History of Present Illness History of Present Illness: Hospitalist H&P Please note that this patient was accepted to [facility] earlier today [facility] procedure requires patient to be discharged and then re-admitted to in-patient hospice. Please see Assessment and Plans below for full details of this patient's hospital stay from 05/22/18 through 05/28/18 and these assessments include his past medical history. This has been copy/pasted from prior Medicine Team notes. Spoke with [facility] Appeals Manager Alis Ramos who has accepted patient into in-patient hospice. Also informed patient's Mom Cheri [phone] and Son Isaiah [phone] both of whom who were at bedside. Patient was started on Morphine Drip and it was increased to 2 mg/hour and his NGT was also pulled to make him more comfortable. At the request of the family, patient's BiPap was also discontinued and he was placed on O2 via NC at 4L, so as to allow them to hold/feel the skin on his face. The following are the only medications that this patient is currently on: Morphine 2 mg/hr IV Ativan 1 mg IV Q4H PRN Anxiety Tylenol 650 mg PA Q6H PRN Levsin 0.125 mg SL Q4H PRN GI Secretion - Constitutional Appears: Toxic - Head Exam Head Exam: NORMAL INSPECTION, NORMOCEPHALIC - Eye Exam Eye Exam: EOMI, Scleral icterus. absent: Nystagmus - ENT Exam ENT Exam: Mucous Membranes Dry - Respiratory Exam Respiratory Exam: Rales, Respiratory Distress. Using accessory muscle of respiration (abdominal breathing) absent: Clear to Ausculation Bilateral, NORMAL BREATHING PATTERN Additional comments: on bipap 09/15 40% - Cardiovascular Exam Cardiovascular Exam: Tachycardia, REGULAR RHYTHM, +S1, +S2 - GI/Abdominal Exam GI & Abdominal Exam: Distended, Normal Bowel Sounds. absent: Firm, Guarding, Rigid, Soft, Tenderness - Extremities Exam Extremities Exam: Normal Inspection. absent: Pedal Edema - Neurological Exam Neurological Exam: patient does not respond to any questioning absent: Alert, Awake, Oriented x3 - Psychiatric Exam Psychiatric exam: absent: Normal Affect, Normal Mood - Skin Skin Exam: Intact, Normal Color Assessment and Plan - Assessment and Plan (Free Text) Assessment: 47 y.o male with PMH hepatic encephelopathy 2/2 to cirrhosis, untreated cirrhosis, pancytopenia, nephrolithiasis, polysubstance abuse, and splenomegaly presented to the ED 05/22/18 with abdominal pain. Plan: Hepatic Encephelopathy 05/25 U/S: Moderate ascites is demonstrated. Nodular hepatic contour is noted consistent with hepatic cirrhosis. Extensive ascites is not fully assessed but appears grossly similar to prior examination Likely secondary to cirrhosis- patient uses EtoH and has untreated Hep C infection Ascities noted- however to little fluid for tapping with thoracentesis; Lasix 20mg po bid NG tube in place due to AMS; Dextrose 10% in water @30mls/hr Lactulose 30mg NG TID Meld score: 40 Ascites Thoracentesis not performed due to low fluid in imaging On Meropenem 1gm IVPB @ 100mls/ hr; Flagy @ 100mls/hr IVPB for emperic coverage , Rifaximin 550mg ng bid blayne Multifocal Pneumonia Metronidazole 500 mg IV Q8H Meropenem 1 gm IV Q8H Blood Culture 05/22/18 negative to date Urine Culture 05/22/18 shows NO growth Hypoalbuminemia Albumin 200mls/hr EtOH use disorder CIWA protocol Lorazepam 1mg po bid blayne Folic acid 1mg po daily Thiamine 100mg po daily blayne Depression Psych Consult- Ozden- Recommends patient be on Remeron 15mg po HS Insomnia Mirtazapine 15mg po HS Substance abuse- Heroin positive urine opiate screen Psych Consult- Ozden- Recommdends patient be on Methadone 10mg po q24h PPx: GI ppx: Protonix 40mg IVP q12h DVT ppx: SCDs; No VTE 2/2 thrombocytopenia Guerrero Estrella D.O. Present on Admission - Present on Admission Any Indicators Present on Admission: Yes History of DVT/PE: No History of Uncontrolled Diabetes: No Past Patient History - Infectious Disease Hx of Infectious Diseases: None - Tetanus Immunizations Tetanus Immunization: Unknown - Past Medical History & Family History Past Medical History?: Yes - Past Social History Smoking Status: Former Smoker - CARDIAC Hx Hypertension: No - PULMONARY Hx Asthma: Yes - NEUROLOGICAL Hx Seizures: No - HEENT Hx HEENT Problems: No - RENAL Hx Chronic Kidney Disease: No Hx Kidney Stones: Yes - ENDOCRINE/METABOLIC Hx Endocrine Disorders: No - HEMATOLOGICAL/ONCOLOGICAL Hx Human Immunodeficiency Virus (HIV): No - INTEGUMENTARY Hx Dermatological Problems: No - MUSCULOSKELETAL/RHEUMATOLOGICAL Hx Arthritis: Yes Hx Falls: No Hx Fractures: Yes (right arm) - GASTROINTESTINAL Other/Comment: right groin hernia - GENITOURINARY/GYNECOLOGICAL Hx Sexually Transmitted Disorders: No - PSYCHIATRIC Hx Substance Use: Yes - SURGICAL HISTORY Hx Coronary Stent: No - ANESTHESIA Hx Anesthesia: Yes Hx Anesthesia Reactions: No Hx Malignant Hyperthermia: No Meds Allergies/Adverse Reactions: Allergies Allergy/AdvReac Type Severity Reaction Status Date / Time No Known Allergies Allergy Verified 05/22/18 17:34
[2018-05-29 01:19] VITALS: BP 111/71; RESP 18; O2SAT 78
[2018-05-29 08:20] VITALS: PULSE 138; TEMP 100.7
--- NOTE | 2018-05-29 12:21 | CP.PCM.PRO ---
Pronouncement of Note - Clinical Findings Physical Exam: No Response Verbal/Painful Stimuli, Absent Peripheral Pulses{ Carotid & Femoral}, Absent Heart & Breath Sounds, No Pupillary Light Reflex, No Corneal Reflex, Pupils Fixed & Dilated, Absence of Vital Signs - Pronouncement Time Time of Pronouncement of : 12:12 - Notifications Pronouncement Notifications: Family Notified, Atending Notified School Bus Monitor Notified: No - Autopsy Autopsy Requested: No - [place] [id number]
--- NOTE | 2018-05-29 18:14 | CP.PCM.DIS ---
Provider - Provider Date of Admission: 05/28/18 13:58 Attending physician: Guerrero Estrella MD Time Spent in preparation of Discharge (in minutes): 29 Diagnosis - Discharge Diagnosis (1) Hepatic encephalopathy Status: Acute (2) Polysubstance abuse Status: Acute (3) Pneumonia Status: Acute Hospital Course - Hospital Course Hospital Course: Patient was admitted to the floors after release from ICU. Patient was having difficulty breathing and subsequently placed on bipap. Discussion was held with the family about patient's status. Family decided to make him DNI/DNR. Decision was then made to make patient Hospice. Patient was placed on comfort care measure with morphine drip. Patient 05/29/2018 at 12:12pm. Discharge Exam - Head Exam Head Exam: ATRAUMATIC, NORMOCEPHALIC - Eye Exam Eye Exam: absent: EOMI, PERRL - Respiratory Exam Respiratory Exam: absent: NORMAL BREATHING PATTERN (absent breathing) - Cardiovascular Exam Cardiovascular Exam: absent: REGULAR RHYTHM Discharge Plan - Follow Up Plan Condition: Disposition: WITH WITHOUT AUTOPSY Patient education suggested?: No Additional Instructions: Patient was admitted to the floors after release from ICU. Patient was having difficulty breathing and subsequently placed on bipap. Discussion was held with the family about patient's status. Family decided to make him DNI/DNR. Decision was then made to make patient Hospice. Patient was placed on comfort care measure with morphine drip. Patient 05/29/2018 at 12:12pm.T
== END 2018-05-29 12:12 | DRG 432 ==
LOC: C.3T 13:58
PROVIDERS: ADMIT Family Medicine; ATTEND Family Medicine
PROC: 5A09357 Assistance with Respiratory Ventilation, Less than 24 Consecutive Hours, Continuous Positive Airway Pressure (ICD-10-PCS; principal; 2018-05-28)
DX: K70.31 Alcoholic cirrhosis of liver with ascites (principal); J18.9 Pneumonia, unspecified organism; D61.818 Other pancytopenia; B19.20 Unspecified viral hepatitis C without hepatic coma; K72.90 Hepatic failure, unspecified without coma; J45.909 Unspecified asthma, uncomplicated; Z66 Do not resuscitate; E88.09 Other disorders of plasma-protein metabolism, not elsewhere classified; F32.9 Major depressive disorder, single episode, unspecified; F11.10 Opioid abuse, uncomplicated; Z87.891 Personal history of nicotine dependence